=== PATIENT | female | born 1950 ===

== ENCOUNTER 2016-12-25 01:08 | Inpatient (IN) | payer OTHER ==
[2016-12-25 01:08] VITALS: BMI 24.7
[2016-12-25] MEDS ORDERED: Sodium Chloride 0.9% 1,000 ML IV STA (01:27)
[2016-12-25 01:36] LABS: BASO # 0.1 K/uL (0.0-0.2); BASO % 0.7 % (0.0-2.0); EOS # 0.1 K/uL (0.0-0.7); EOS % 0.8 % (0.0-4.0); LYMPH # 2.1 K/uL (1.0-4.3); LYMPH % 20.9 % (20.0-40.0); MEAN CELL VOLUME 89.3 fL (81.0-99.0); MEAN CORPUSCULAR HGB CONC 32.4 g/dL (33.0-37.0); MEAN PLATELET VOLUME 9.8 fL (7.2-11.7); MONO # 0.9 K/uL (0.0-0.8); MONO % 8.5 % (0.0-10.0); RED CELL DISTRIBUTION WIDTH 15.4 % (11.5-14.5); WHITE BLOOD COUNT 10.2 K/uL (4.8-10.8)
[2016-12-25] MEDS ORDERED: Sodium Chloride 0.9% 1,000 ML ONE (01:40)
[2016-12-25 02:06] LABS: RBC URINE < 1 /hpf (0-3); URINE BILIRUBIN NEGATIVE (NEGATIVE); URINE BLOOD NEGATIVE (NEGATIVE); URINE COLOR Colorless (YELLOW); URINE GLUCOSE (UA) NORMAL (Normal); URINE KETONE NEGATIVE (NEGATIVE); URINE LEUKOCYTE ESTERASE NEG Leu/uL (Negative); URINE PROTEIN NEGATIVE (NEGATIVE); URINE UROBILINOGEN NORMAL mg/dL (0.2-1.0); WBC URINE < 1 /hpf (0-5)
[2016-12-25 02:50] LABS: CHLORIDE 106 mmol/L (98-107)
[2016-12-25 02:51] LABS: POTASSIUM 3.4 mmol/L (3.6-5.2); SODIUM 143 mmol/L (132-148)
[2016-12-25 02:54] LABS: ALKALINE PHOSPHATASE 71 U/L (38-126); ALT/SGPT 46 U/L (9-52); AMYLASE 73 U/L (30-110); AST/SGOT 47 U/L (14-36); BILIRUBIN,TOTAL 0.4 mg/dL (0.2-1.3); BLOOD UREA NITROGEN 7 mg/dL (7-17); CALCIUM 8.2 mg/dl (8.6-10.4); CARBON DIOXIDE 25 mmol/L (22-30); GFR AFRICAN-AMERICAN > 60; GLUCOSE,RANDOM 102 mg/dL (65-105); TOTAL PROTEIN 6.4 g/dL (6.3-8.3)
--- NOTE | 2016-12-25 02:55 | C.PDOC ---
History Of Present Illness Patient is a 66 year old female who presents to the ER with a complain of nausea , vomiting, and diarrhea for the past 2-3 days. Patient also complains of SOB that started from yesterday, she denies any chest pain, fever, or chills. Time Seen by Provider: 12/25/16 01:22 Chief Complaint (Nursing): Abdominal Pain History Per: Patient History/Exam Limitations: no limitations Onset/Duration Of Symptoms: Days (2) Current Symptoms Are (Timing): Still Present Location Of Pain/Discomfort: Diffuse Associated Symptoms: Nausea, Vomiting, Diarrhea. denies: Fever, Chills Past Medical History Reviewed: Historical Data, Nursing Documentation, Vital Signs Vital Signs: Last Vital Signs Temp 98.6 F 12/25/16 04:00 Pulse 84 12/25/16 04:00 Resp 18 12/25/16 04:00 BP 159/82 H 12/25/16 04:00 Pulse Ox 100 12/25/16 04:37 - Medical History PMH: Anxiety, Arthritis, Asthma, Bipolar Disorder, Bronchitis, Depression, Diabetes, Gastritis, Gall Bladder Disease (cholecystectomy), GERD, HTN, Hypercholesterolemia, Hypothyroidism, Osteoporosis, Pneumonia, Pulmonary Embolism (has IVC filter), Schizophrenia Surgical History: CABG, Cholecystectomy, Coronary Stent - [facility] Procedures ALCOHOL DETOXIFICATION (03/15/15) INDIVID PSYCHOTHERAP NEC (04/14/13) INTRODUCTION OF SERUM/TOX/VACCINE INTO MUSCLE, PERC APPROACH (01/10/16) OTHER GROUP THERAPY (04/14/13) Family History: States: Unknown Family Hx - Social History Hx Tobacco Use: Yes Hx Alcohol Use: No Hx Substance Use: No - Immunization History Hx Tetanus Toxoid Vaccination: No Hx Influenza Vaccination: No Hx Pneumococcal Vaccination: No Review Of Systems Except As Marked, All Systems Reviewed And Found Negative. Constitutional: Negative for: Fever, Chills Cardiovascular: Negative for: Chest Pain, Palpitations Respiratory: Negative for: Cough, Shortness of Breath Gastrointestinal: Positive for: Nausea, Vomiting, Diarrhea Physical Exam - Physical Exam Appears: Well, Non-toxic Skin: Normal Color, Warm, Dry Head: Atraumatic, Normacephalic Oral Mucosa: Moist Chest: Symmetrical Cardiovascular: Rhythm Regular Respiratory: Normal Breath Sounds, No Rales, No Rhonchi, No Wheezing Gastrointestinal/Abdominal: Soft, Tenderness (Diffusely ), No Distention, No Guarding, No Rebound Extremity: Normal ROM, No Tenderness Neurological/Psych: Oriented x3, Normal Speech, Normal Cognition ED Course And Treatment - Laboratory Results Result Diagrams: 12/25/16 01:33 12/25/16 02:39 O2 Sat by Pulse Oximetry: 100 (Room air) Pulse Ox Interpretation: Normal - Radiology CXR: Interpreted by Wi CXR Interpretation: Yes: Infiltrates (RLL) - CT Scan/US Abdomen/pelvis CT Other Rad Studies (CT/US): Read By Radiologist, Radiology Report Reviewed CT/US Interpretation: EXAM: CT Abdomen and Pelvis Without Intravenous Contrast. CLINICAL HISTORY: 66 years old, female; Pain; Abdominal pain; Generalized; Additional info: Abd pain. TECHNIQUE: Axial computed tomography images of the abdomen and pelvis without intravenous contrast. This. CT exam was performed using one or more of the following dose reduction techniques: automated. exposure control, adjustment of the mA and/or kV according to patient size, and/or use of iterative. reconstruction technique. Coronal and sagittal reformatted images were created and reviewed. COMPARISON: CT - ABD PELVIS W/O PO OR IV CONT 10/16/2015 3:34:22 PM. FINDINGS: Lower thorax: There is consolidation near the right base and right middle lobe. This may represent. atelectasis. However it is difficult to exclude a component of aspiration or pneumonia here. ABDOMEN: Liver: There are no focal liver lesions present. There is a diffuse decrease in hepatic parenchymal. density, consistent with fatty infiltration. Gallbladder and bile ducts: There has been a cholecystectomy. No ductal dilation. Pancreas: The pancreas is normal. No ductal dilation. Spleen: The spleen is normal. Adrenals: The adrenal glands are normal. Kidneys and ureters: The kidneys are normal. No obstructing stones. No hydronephrosis. Stomach and bowel: Stomach is decompressed. Moderate diverticulosis is present in the sigmoid. and descending colon. There is no evidence of diverticulitis. Colonic constipation is present. There. is no evidence of intestinal obstruction. Appendix: No findings to suggest acute appendicitis. PELVIS: Bladder: The bladder is normal. No stones. Reproductive : The uterus is normal. ABDOMEN and PELVIS: Intraperitoneal space: There is no evidence of free intraperitoneal fluid. There is no free. intraperitoneal air. Bones/joints: There are mild degenerative changes present. There is mild diffuse osteopenia. No. acute fracture. No dislocation. Soft tissues: Unremarkable. Vasculature: The aorta demonstrates mild atherosclerotic calcification. There is an infrarenal IVC. filter. No abdominal aortic aneurysm. Lymph nodes: There is no evidence of lymphadenopathy. IMPRESSION: 1. There is consolidation near the right base and right middle lobe. This may represent atelectasis. However it is difficult to exclude a component of aspiration or pneumonia here. 2. No acute pathology identified in the abdomen or pelvis. 3. Additional incidental and/or chronic findings as described. Thank you for allowing us to participate in the care of your patient. Dictated and Authenticated by: Chun Ng MD. 12/25/2016 4:17 AM Eastern Time ( [place] & [place]) Progress Note: Blood work ordered. Protonix IVP, IV fluids, and Zofran IVP administered. CT abdomen and CXR with RLL consolidation that suspicious for possible aspirating pneumonia. Clindamycin IV was ordered. Case was d/w Internal medicine physician intervention teacher who accepted case to her service for admission. Disposition - Disposition Disposition: HOSPITALIZED Disposition Time: 06:33 Condition: FAIR - Clinical Impression Clinical Impression: Aspiration pneumonia, Gastroenteritis - Scribe Statement The provider has reviewed the documentation as recorded by the Scribe Thomas Pool All medical record entries made by the Scribe were at my direction and personally dictated by me. I have reviewed the chart and agree that the record accurately reflects my personal performance of the history, physical exam, medical decision making, and the department course for this patient. I have also personally directed, reviewed, and agree with the discharge instructions and disposition. Decision To Admit - Pt Status Changed To: Hospital Disposition Of: Inpatient - Admit Certification Admit to Inpatient:: After my assessment, the patient will require hospitalization for at least two midnights. This is because of the severity of symptoms shown, intensity of services needed, and/or the medical risk in this patient being treated as an outpatient. - InPatient: Physician Admission Certification:: Aspiration Pneumonia will need more than 2 days of IV antibiotics. - . Bed Request Type: Regular Admitting Physician: Annette Jorge Patient Diagnosis: Aspiration pneumonia, Gastroenteritis
--- NOTE | 2016-12-25 04:17 | CT ---
EXAM: CT Abdomen and Pelvis Without Intravenous Contrast CLINICAL HISTORY: 66 years old, female; Pain; Abdominal pain; Generalized; Additional info: Abd pain TECHNIQUE: Axial computed tomography images of the abdomen and pelvis without intravenous contrast. This CT exam was performed using one or more of the following dose reduction techniques: automated exposure control, adjustment of the mA and/or kV according to patient size, and/or use of iterative reconstruction technique. Coronal and sagittal reformatted images were created and reviewed. COMPARISON: CT - ABD PELVIS W/O PO OR IV CONT 10/16/2015 3:34:22 PM FINDINGS: Lower thorax: There is consolidation near the right base and right middle lobe. This may represent atelectasis. However it is difficult to exclude a component of aspiration or pneumonia here. ABDOMEN: Liver: There are no focal liver lesions present. There is a diffuse decrease in hepatic parenchymal density, consistent with fatty infiltration. Gallbladder and bile ducts: There has been a cholecystectomy. No ductal dilation. Pancreas: The pancreas is normal. No ductal dilation. Spleen: The spleen is normal. Adrenals: The adrenal glands are normal. Kidneys and ureters: The kidneys are normal. No obstructing stones. No hydronephrosis. Stomach and bowel: Stomach is decompressed. Moderate diverticulosis is present in the sigmoid and descending colon. There is no evidence of diverticulitis. Colonic constipation is present. There is no evidence of intestinal obstruction. Appendix: No findings to suggest acute appendicitis. PELVIS: Bladder: The bladder is normal. No stones. Reproductive: The uterus is normal. ABDOMEN and PELVIS: Intraperitoneal space: There is no evidence of free intraperitoneal fluid. There is no free intraperitoneal air. Bones/joints: There are mild degenerative changes present. There is mild diffuse osteopenia. No acute fracture. No dislocation. Soft tissues: Unremarkable. Vasculature: The aorta demonstrates mild atherosclerotic calcification. There is an infrarenal IVC filter. No abdominal aortic aneurysm. Lymph nodes: There is no evidence of lymphadenopathy. IMPRESSION: 1. There is consolidation near the right base and right middle lobe. This may represent atelectasis. However it is difficult to exclude a component of aspiration or pneumonia here. 2. No acute pathology identified in the abdomen or pelvis. 3. Additional incidental and/or chronic findings as described.
[2016-12-25] MEDS: Clindamycin 600mg/50ml D5W 50 ML IVPB STA (06:31)
[2016-12-25] MEDS ORDERED: Clindamycin 600mg/50ml D5W 50 ML IVPB ONE (06:33)
[2016-12-25] MEDS: Dextrose 5%/0.45% NS 1,000 ML IV SCH (08:36)
--- NOTE | 2016-12-25 09:19 | RAD ---
HISTORY: abdominal pain, ? consolidation on CT abdomen COMPARISON: Comparison is made to 09/23/2016 TECHNIQUE: Chest PA and lateral FINDINGS: LUNGS: No evidence of new infiltrate or consolidation in the lungs. PLEURA: No significant pleural effusion identified. No pneumothorax apparent. CARDIOVASCULAR: Normal. OSSEOUS STRUCTURES: No significant abnormalities. VISUALIZED UPPER ABDOMEN: Normal. OTHER FINDINGS: None. IMPRESSION: No active disease.
[2016-12-25] MEDS: Losartan 12.5 MG TAB PO SCH (10:06)
--- NOTE | 2016-12-25 12:41 | CP.PCM.HP ---
History of Present Illness - History of Present Illness History of Present Illness: presented to er for abd pain diarhea sob cough schezophrenia Present on Admission - Present on Admission Any Indicators Present on Admission: No Review of Systems - Review of Systems Systems not reviewed;Unavailable: Acuity of Condition - Constitutional Constitutional: Anorexia, Chills, Fever, Headache - EENT Eyes: As Per HPI Ears: As Per HPI Nose/Mouth/Throat: As Per HPI - Breasts Breasts: As Per HPI - Cardiovascular Cardiovascular: Chest Pain at Rest, Dyspnea, Dyspnea on Exertion - Respiratory Respiratory: Dyspnea on Exertion, Chest Congestion - Gastrointestinal Gastrointestinal: Cramping - Genitourinary Genitourinary: As Per HPI - Reproductive: Female Reproductive:Female: As Per HPI - Menstruation Menstruation: As Per HPI - Integumentary Integumentary: As Per HPI - Neurological Neurological: Dizziness - Psychiatric Psychiatric: Anxiety - Endocrine Endocrine: As Per HPI - Hematologic/Lymphatic Hematologic: As Per HPI Past Patient History - Infectious Disease Hx of Infectious Diseases: None - Past Medical History & Family History Past Medical History?: Yes - Past Social History Smoking Status: Light Smoker < 10 Cigarettes Daily - CARDIAC Hx Hypercholesterolemia: Yes Hx Hypertension: Yes - PULMONARY Hx Asthma: Yes Hx Bronchitis: Yes Hx Pneumonia: Yes Hx Pulmonary Embolism: Yes (has IVC filter) - NEUROLOGICAL Hx Seizures: No - HEENT Hx HEENT Problems: No - RENAL Hx Chronic Kidney Disease: No - ENDOCRINE/METABOLIC Hx Hypothyroidism: Yes - HEMATOLOGICAL/ONCOLOGICAL Hx Human Immunodeficiency Virus (HIV): No (denies) - INTEGUMENTARY Hx Dermatological Problems: No - MUSCULOSKELETAL/RHEUMATOLOGICAL Hx Arthritis: Yes Hx Osteoporosis: Yes - GASTROINTESTINAL Hx Gall Bladder Disease: Yes (cholecystectomy) Hx Gastritis: Yes - GENITOURINARY/GYNECOLOGICAL Hx Sexually Transmitted Disorders: No - PSYCHIATRIC Hx Anxiety: Yes Hx Bipolar Disorder: Yes Hx Depression: Yes Hx Schizophrenia: Yes Hx Substance Use: No - SURGICAL HISTORY Hx Cholecystectomy: Yes Hx Coronary Artery Bypass Graft: Yes Hx Coronary Stent: Yes - ANESTHESIA Hx Anesthesia: Yes Hx Anesthesia Reactions: No Hx Malignant Hyperthermia: No Meds Allergies/Adverse Reactions: Allergies Allergy/AdvReac Type Severity Reaction Status Date / Time ceftriaxone Allergy Intermediate RASH Verified 12/25/16 01:22 moxifloxacin HCl Allergy Intermediate RASH Verified 12/25/16 01:22 [From Avelox] Physical Exam - Constitutional Appears: In Acute Distress - Head Exam Head Exam: NORMAL INSPECTION - Eye Exam Eye Exam: Normal appearance Pupil Exam: NORMAL ACCOMODATION - ENT Exam ENT Exam: Mucous Membranes Dry - Neck Exam Neck exam: Positive for: Full Rom - Respiratory Exam Respiratory Exam: Decreased Breath Sounds, Rales - Cardiovascular Exam Cardiovascular Exam: Diastolic murmur, +S4, Systolic Murmur - GI/Abdominal Exam GI & Abdominal Exam: Distended - Rectal Exam Rectal Exam: NORMAL INSPECTION - Extremities Exam Extremities exam: Positive for: normal inspection Results - Vital Signs Recent Vital Signs: Last Vital Signs Temp 98.5 F 12/25/16 09:35 Pulse 82 12/25/16 09:35 Resp 17 12/25/16 09:35 BP 146/80 12/25/16 09:35 Pulse Ox 98 12/25/16 09:35 - Labs Result Diagrams: 12/25/16 01:33 12/25/16 02:39 Labs: Laboratory Results - last 24 hr 12/25/16 11:28 POC Glucose (mg/dL) 129 H Assessment & Plan - Assessment and Plan (Free Text) Assessment: ac diarhea ac bronchitis posible pnumonia schezophrenia Plan: as per orders - Date & Time Date: 12/25/16 Time: 12:44
[2016-12-25] MEDS: Albuterol-Ipratrop 3 mg / 0.5 (3 ml) UD INH SCH (15:00)
[2016-12-25] MEDS: Potassium Chloride 20 mEq ER Tab PO SCH (17:50)
[2016-12-25 17:55] VITALS: RESP 20
[2016-12-25] MEDS ORDERED: Influenza Virus Vaccine 45 mcg/0.5 ml Syr IM ONE (18:00)
[2016-12-25] MEDS ORDERED: Pneumococcal 23-Valent Vaccine IM ONE (18:00)
[2016-12-26] MEDS: Albuterol-Ipratrop 3 mg / 0.5 (3 ml) UD INH SCH ×4 (01:26→20:20)
[2016-12-26] MEDS: Dextrose 5%/0.45% NS 1,000 ML IV SCH ×2 (06:13→17:55)
[2016-12-26 07:53] LABS: CHLORIDE 102 mmol/L (98-107); POTASSIUM 4.3 mmol/L (3.6-5.2); SODIUM 140 mmol/L (132-148)
[2016-12-26 07:55] LABS: HEMATOCRIT 33.8 % (34.0-47.0); INR 1.1; MEAN CELL VOLUME 90.6 fL (81.0-99.0); MEAN CORPUSCULAR HEMOGLOBIN 29.1 pg (27.0-31.0); MEAN CORPUSCULAR HGB CONC 32.1 g/dL (33.0-37.0); MEAN PLATELET VOLUME 9.4 fL (7.2-11.7)
[2016-12-26 07:56] LABS: BLOOD UREA NITROGEN 9 mg/dL (7-17); CARBON DIOXIDE 26 mmol/L (22-30); GFR AFRICAN-AMERICAN > 60
[2016-12-26 07:57] LABS: CALCIUM 8.4 mg/dl (8.6-10.4); GLUCOSE,RANDOM 108 mg/dL (65-105)
[2016-12-26 08:04] LABS: WHITE BLOOD COUNT 4.8 K/uL (4.8-10.8)
[2016-12-26] MEDS ORDERED: Apap-Butalbital-Caffeine 325-50-40mg Tab PO STA (08:59)
[2016-12-26] MEDS ORDERED: Apap-Butalbital-Caffeine 325-50-40mg Tab PO PRN (08:59)
[2016-12-26] MEDS: Potassium Chloride 20 mEq ER Tab PO SCH (09:40)
[2016-12-26] MEDS: Losartan 12.5 MG TAB PO SCH (09:40)
[2016-12-26] MEDS: Enoxaparin 40 mg Syringe SC SCH (09:41)
[2016-12-26] MEDS ORDERED: Magnesium Hydroxide Susp 30 ml UD PO ONE ×2 (16:30→18:00)
--- NOTE | 2016-12-26 17:29 | CP.PCM.PN ---
Subjective - Date & Time of Evaluation Date of Evaluation: 12/26/16 Time of Evaluation: 17:26 - Subjective Subjective: pt still coughing a lot chest is cogested no abd pain Objective - Vital Signs/Intake and Output Vital Signs (last 24 hours): Temp Pulse Resp BP Pulse Ox 98.7 F 83 20 114/71 97 12/26/16 08:00 12/26/16 13:51 12/26/16 08:00 12/26/16 08:00 12/26/16 08:00 Intake and Output: 12/26/16 12/26/16 06:59 18:59 Intake Total 1322 Balance 1322 - Medications Medications: Current Medications Acetaminophen (Tylenol 325mg Tab) 650 mg PO Q6 PRN PRN Reason: Pain, Mild (1-3) Last Admin: 12/26/16 06:16 Dose: 650 mg Albuterol/Ipratropium (Duoneb 3 Mg/0.5 Mg (3 Ml) Ud) 3 ml INH RQ6 [facility] Last Admin: 12/26/16 14:37 Dose: Not Given Alprazolam (Xanax) 1 mg PO BID [facility] Last Admin: 12/26/16 09:41 Dose: 1 mg Aspirin (Ecotrin) 81 mg PO DAILY [facility] Last Admin: 12/26/16 09:40 Dose: 81 mg Enoxaparin Sodium (Lovenox) 40 mg SC DAILY [facility] Last Admin: 12/26/16 09:41 Dose: 40 mg Gabapentin (Neurontin) 300 mg PO HS [facility] Last Admin: 12/25/16 22:15 Dose: 300 mg Dextrose/Sodium Chloride (Dextrose 5%/0.45% Ns 1000 Ml) 1,000 mls @ 60 mls/hr IV .[id number] [facility] Last Admin: 12/26/16 06:13 Dose: Not Given Clindamycin Phosphate 600 mg/ (Dextrose) 54 mls @ 100 mls/hr IVPB Q8H [facility] Losartan Potassium (Cozaar) 25 mg PO DAILY [facility] Montelukast Sodium (Singulair) 10 mg PO HS [facility] Last Admin: 12/25/16 22:29 Dose: 10 mg Ondansetron HCl (Zofran Inj) 4 mg IVP Q6H PRN PRN Reason: Nausea/Vomiting Last Admin: 12/25/16 10:10 Dose: 4 mg Pantoprazole Sodium (Protonix Inj) 40 mg IVP DAILY [facility] Last Admin: 12/26/16 15:00 Dose: 40 mg Sertraline HCl (Zoloft) 100 mg PO DAILY [facility] Last Admin: 12/26/16 09:40 Dose: 100 mg Trazodone HCl (Desyrel) 100 mg PO DAILY [facility] Last Admin: 12/26/16 09:40 Dose: 100 mg - Labs Labs: 12/26/16 07:31 12/26/16 07:31 PT 12.1 SECONDS (9.7-12.2) 12/26/16 07:31 INR 1.1 12/26/16 07:31 APTT 18 SECONDS (21-34) L 12/26/16 07:31 - Constitutional Appears: Non-toxic - Head Exam Head Exam: NORMAL INSPECTION - Eye Exam Eye Exam: Normal appearance - ENT Exam ENT Exam: Normal Exam - Neck Exam Neck Exam: Full ROM - Respiratory Exam Respiratory Exam: Rales - Cardiovascular Exam Cardiovascular Exam: REGULAR RHYTHM - GI/Abdominal Exam GI & Abdominal Exam: Hyperactive Bowel Sounds - Rectal Exam Rectal Exam: NORMAL INSPECTION - Extremities Exam Extremities Exam: Normal Inspection - Back Exam Back Exam: NORMAL INSPECTION - Neurological Exam Neurological Exam: Oriented x3 - Psychiatric Exam Psychiatric exam: Normal Affect - Skin Skin Exam: Normal Color Assessment and Plan - Assessment and Plan (Free Text) Assessment: ac bronchitis r/o pnumonia abd pain improved Plan: qas per orders
[2016-12-26] MEDS: Albuterol 0.083% Inhal Sol (2.5 mg/3 mL) UD INH SCH (20:21)
[2016-12-26] MEDS: Clindamycin 600mg/50ml D5W 50 ML IVPB STA (21:24)
[2016-12-27] MEDS: Albuterol 0.083% Inhal Sol (2.5 mg/3 mL) UD INH SCH ×2 (02:15→08:54)
[2016-12-27] MEDS: Albuterol-Ipratrop 3 mg / 0.5 (3 ml) UD INH SCH ×3 (02:15→14:31)
[2016-12-27 08:24] LABS: HEMATOCRIT 35.1 % (34.0-47.0); MEAN CELL VOLUME 91.5 fL (81.0-99.0); MEAN CORPUSCULAR HEMOGLOBIN 29.3 pg (27.0-31.0); RED CELL DISTRIBUTION WIDTH 15.8 % (11.5-14.5); WHITE BLOOD COUNT 4.9 K/uL (4.8-10.8)
[2016-12-27 08:34] VITALS: PULSE 70
[2016-12-27 08:37] LABS: CHLORIDE 100 mmol/L (98-107); POTASSIUM 4.1 mmol/L (3.6-5.2); SODIUM 139 mmol/L (132-148)
[2016-12-27 08:40] LABS: BLOOD UREA NITROGEN 16 mg/dL (7-17); CALCIUM 8.5 mg/dl (8.6-10.4); CARBON DIOXIDE 25 mmol/L (22-30); GFR AFRICAN-AMERICAN > 60; GLUCOSE,RANDOM 166 mg/dL (65-105)
[2016-12-27] MEDS: Enoxaparin 40 mg Syringe SC SCH (10:26)
--- NOTE | 2016-12-27 10:32 | CP.PCM.PN ---
Subjective - Date & Time of Evaluation Date of Evaluation: 12/27/16 Time of Evaluation: 10:30 - Subjective Subjective: pt feels beter less cough Objective - Vital Signs/Intake and Output Vital Signs (last 24 hours): Temp Pulse Resp BP Pulse Ox 98.1 F 70 20 113/76 97 12/27/16 08:00 12/27/16 08:00 12/27/16 08:00 12/27/16 08:00 12/27/16 08:00 Intake and Output: 12/27/16 12/27/16 06:59 18:59 Intake Total 680 Balance 680 - Medications Medications: Current Medications Acetaminophen (Tylenol 325mg Tab) 650 mg PO Q6 PRN PRN Reason: Pain, Mild (1-3) Last Admin: 12/26/16 06:16 Dose: 650 mg Albuterol Sulfate (Albuterol 0.083% Inhal Karla (2.5 Mg/3 Ml) Ud) 2.5 mg INH RQ6 [facility] Last Admin: 12/27/16 08:54 Dose: Not Given Albuterol/Ipratropium (Duoneb 3 Mg/0.5 Mg (3 Ml) Ud) 3 ml INH RQ6 [facility] Last Admin: 12/27/16 08:53 Dose: 3 ml Alprazolam (Xanax) 1 mg PO BID [facility] Last Admin: 12/27/16 10:27 Dose: 1 mg Aspirin (Ecotrin) 81 mg PO DAILY [facility] Last Admin: 12/27/16 10:27 Dose: 81 mg Enoxaparin Sodium (Lovenox) 40 mg SC DAILY [facility] Last Admin: 12/27/16 10:26 Dose: 40 mg Gabapentin (Neurontin) 300 mg PO HS [facility] Last Admin: 12/26/16 21:24 Dose: 300 mg Dextrose/Sodium Chloride (Dextrose 5%/0.45% Ns 1000 Ml) 1,000 mls @ 60 mls/hr IV .[id number] [facility] Last Admin: 12/26/16 17:55 Dose: 60 mls/hr Clindamycin Phosphate 600 mg/ (Dextrose) 54 mls @ 100 mls/hr IVPB Q8H [facility] Last Admin: 12/27/16 06:04 Dose: 100 mls/hr Losartan Potassium (Cozaar) 25 mg PO DAILY [facility] Last Admin: 04/04/17 10:27 Dose: 25 mg Montelukast Sodium (Singulair) 10 mg PO HS [facility] Last Admin: 12/26/16 21:24 Dose: 10 mg Ondansetron HCl (Zofran Inj) 4 mg IVP Q6H PRN PRN Reason: Nausea/Vomiting Last Admin: 12/25/16 10:10 Dose: 4 mg Pantoprazole Sodium (Protonix Inj) 40 mg IVP DAILY [facility] Last Admin: 12/27/16 10:27 Dose: 40 mg Sertraline HCl (Zoloft) 100 mg PO DAILY [facility] Last Admin: 12/27/16 10:28 Dose: 100 mg Trazodone HCl (Desyrel) 100 mg PO DAILY [facility] Last Admin: 12/27/16 10:27 Dose: 100 mg - Labs Labs: 12/27/16 08:18 12/27/16 08:18 PT 12.1 SECONDS (9.7-12.2) 12/26/16 07:31 INR 1.1 12/26/16 07:31 APTT 18 SECONDS (21-34) L 12/26/16 07:31 - Constitutional Appears: Non-toxic - Head Exam Head Exam: NORMAL INSPECTION - Eye Exam Eye Exam: Normal appearance Pupil Exam: NORMAL ACCOMODATION - ENT Exam ENT Exam: Mucous Membranes Moist - Respiratory Exam Respiratory Exam: NORMAL BREATHING PATTERN - Cardiovascular Exam Cardiovascular Exam: REGULAR RHYTHM - GI/Abdominal Exam GI & Abdominal Exam: Normal Bowel Sounds - Rectal Exam Rectal Exam: NORMAL INSPECTION - Exam Exam: NORMAL INSPECTION - Skin Skin Exam: Normal Color Assessment and Plan - Assessment and Plan (Free Text) Assessment: ac bronchitis abd pain imrovedanexiety Plan: disc
[2016-12-27] MEDS: Dextrose 5%/0.45% NS 1,000 ML IV SCH (10:35)
--- NOTE | 2016-12-27 11:06 | CT ---
PROCEDURE: CT Chest without contrast HISTORY: chest congesion possible pnumonia COMPARISON: Comparison is made to the previous study dated 02/01/2016 TECHNIQUE: Contiguous axial images were obtained through the chest without intravenous contrast enhancement. Sagittal and coronal reconstructions were performed. Radiation dose (DLP): 440.7 mGy-cm. This CT exam was performed using one or more of the following dose reduction techniques: Automated exposure control, adjustment of the mA and/or kV according to patient size, and/or use of iterative reconstruction technique. FINDINGS: LUNGS: Focal opacity at the right middle lobe associated with slight bronchiectasis suspicious for possible pneumonia. The possibility of neoplasm is not totally excluded. Interval significant improvement and almost complete resolving of the previously seen ground-glass opacities in the lungs. MEDIASTINUM: Unremarkable thoracic aorta. No aneurysm. Normal sized heart. Main pulmonary artery unremarkable. No vascular congestion. No lymphadenopathy. PLEURA: No pleural fluid. No pneumothorax. BONES: No fracture. No destructive lesion. UPPER ABDOMEN: Grossly unremarkable. OTHER FINDINGS: None. IMPRESSION: Focal airspace opacity/consolidation at the right middle lobe may represent a pneumonia or neoplasm. Follow-up reassessment is recommended. Interval almost complete resolving of the previously seen diffuse ground-glass opacities in the lungs. Otherwise no evidence of acute pathology or significant interval change compared to the previous study.
[2016-12-27 16:46] VITALS: BP 134/81; TEMP 98; O2SAT 96
== END 2016-12-27 16:00 | disposition home or self-care (01) | DRG 391 ==
LOC: C.ER 01:08 → C.9E 06:27 → C.3T 14:48
PROVIDERS: ADMIT Internal Medicine; ATTEND Internal Medicine
DX: K52.9 Noninfective gastroenteritis and colitis, unspecified (principal); J18.9 Pneumonia, unspecified organism; F20.9 Schizophrenia, unspecified; F17.210 Nicotine dependence, cigarettes, uncomplicated; Z86.718 Personal history of other venous thrombosis and embolism; F41.9 Anxiety disorder, unspecified; I25.10 Atherosclerotic heart disease of native coronary artery without angina pectoris; Z95.1 Presence of aortocoronary bypass graft

== ENCOUNTER 2017-01-03 11:47 | Emergency (ER) | payer MEDICAID, OTHER ==
[2017-01-03 11:47] VITALS: BMI 24.7
[2017-01-03 11:58] VITALS: RESP 18; O2SAT 96
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
[2017-01-03] MEDS ORDERED: Albuterol-Ipratrop 3 mg / 0.5 (3 ml) UD IH STA (12:53)
[2017-01-03] MEDS ORDERED: Albuterol-Ipratrop 3 mg / 0.5 (3 ml) UD ONE (12:59)
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
[2017-01-03 14:34] VITALS: BP 144/80; PULSE 88; TEMP 98
--- NOTE | 2017-01-12 08:39 | CARD ---
APPROVED REPORT EKG Measurement Heart [id number] <Conclusion> Normal sinus rhythm Left ventricular hypertrophy with repolarization abnormality Abnormal ECG
== END 2017-01-03 14:34 | disposition home or self-care (01) ==
LOC: C.ER 11:47
DX: S20.212A Contusion of left front wall of thorax, initial encounter (principal); S20.211A Contusion of right front wall of thorax, initial encounter; V43.62XA Car passenger injured in collision with other type car in traffic accident, initial encounter; Y92.410 Unspecified street and highway as the place of occurrence of the external cause

== ENCOUNTER 2017-05-15 14:37 | Emergency (ER) | payer MEDICAID, OTHER ==
[2017-05-15 14:37] VITALS: BMI 29.2
[2017-05-15 14:58] VITALS: PULSE 80; RESP 16
[2017-05-15] MEDS ORDERED: Sodium Chloride 0.9% 1,000 ML IV ONE (16:35)
[2017-05-15] MEDS ORDERED: Iohexol 240 (50 ml) PO STA (16:35)
[2017-05-15] MEDS ORDERED: Sodium Chloride 0.9% 1,000 ML ONE (16:49)
[2017-05-15] MEDS ORDERED: Iohexol 240 (50 ml) ONE (16:49)
[2017-05-15 16:56] LABS: BASO # 0.1 K/uL (0.0-0.2); BASO % 1.1 % (0.0-2.0); EOS # 0.1 K/uL (0.0-0.7); EOS % 0.7 % (0.0-4.0); HEMATOCRIT 32.4 % (34.0-47.0); LYMPH # 3.4 K/uL (1.0-4.3); LYMPH % 37.7 % (20.0-40.0); MEAN CELL VOLUME 93.3 fL (81.0-99.0); MEAN CORPUSCULAR HEMOGLOBIN 30.5 pg (27.0-31.0); MEAN CORPUSCULAR HGB CONC 32.7 g/dL (33.0-37.0); MEAN PLATELET VOLUME 9.2 fL (7.2-11.7); MONO # 0.6 K/uL (0.0-0.8); NRBC % 0.1 % (0.0-2.0); RED CELL DISTRIBUTION WIDTH 19.2 % (11.5-14.5)
[2017-05-15 16:58] LABS: WHITE BLOOD COUNT 9.1 K/uL (4.8-10.8)
[2017-05-15 17:05] LABS: CHLORIDE 107 mmol/L (98-107); SODIUM 140 mmol/L (132-148)
[2017-05-15 17:06] LABS: POTASSIUM 4.4 mmol/L (3.6-5.2)
[2017-05-15 17:08] LABS: ALKALINE PHOSPHATASE 115 U/L (38-126); ALT/SGPT 57 U/L (9-52); AST/SGOT 91 U/L (14-36); BILIRUBIN,TOTAL 1.8 mg/dL (0.2-1.3); BLOOD UREA NITROGEN 12 mg/dL (7-17); CARBON DIOXIDE 22 mmol/L (22-30); GFR AFRICAN-AMERICAN > 60; GLUCOSE,RANDOM 79 mg/dL (65-105); TOTAL PROTEIN 7.6 g/dL (6.3-8.3)
[2017-05-15 17:09] LABS: ALCOHOL SERUM < 10 mg/dl (0-10); CALCIUM 8.9 mg/dl (8.6-10.4)
[2017-05-15] MEDS ORDERED: Iohexol 300 100 ML IJ ONE (17:36)
[2017-05-15 18:01] VITALS: BP 121/78; TEMP 97.7; O2SAT 96
--- NOTE | 2017-05-15 18:06 | C.PDOC ---
History Of Present Illness 66 yr old female presents to the ER with complaints of lower abdominal pain, 2 episodes of vomiting, 2 episodes of diarrhea and mild nausea since yesterday. Patient has history of alcohol abuse with admission. Denies recent travel, fever , chest pain, SOB, dysuria, hematuria, blood in stool, urine or vomiting. Time Seen by Provider: 05/15/17 15:52 Chief Complaint (Nursing): Abdominal Pain History Per: Patient History/Exam Limitations: no limitations Onset/Duration Of Symptoms: Days (1) Past Medical History Reviewed: Historical Data, Nursing Documentation, Vital Signs Vital Signs: Last Vital Signs Temp 97.7 F 05/15/17 18:01 Pulse 80 05/15/17 18:01 Resp 16 05/15/17 18:01 BP 121/78 05/15/17 18:01 Pulse Ox 96 05/15/17 18:09 - Medical History PMH: Anxiety, Arthritis, Asthma, Bipolar Disorder, Bronchitis, CAD, Depression, Diabetes, Gastritis, Gall Bladder Disease, GERD, HTN, Hypercholesterolemia, Hypothyroidism, Osteoporosis, Pneumonia, Pulmonary Embolism (has IVC filter) Comment Only: HIV (denies) Surgical History: CABG, Cholecystectomy, Coronary Stent - [facility] Procedures ALCOHOL DETOXIFICATION (03/15/15) INDIVID PSYCHOTHERAP NEC (04/14/13) INTRODUCTION OF ANTI-INFLAM INTO RESP TRACT, VIA OPENING (01/25/17) INTRODUCTION OF SERUM/TOX/VACCINE INTO MUSCLE, PERC APPROACH (03/12/17) OTHER GROUP THERAPY (04/14/13) Family History: States: No Known Family Hx - Social History Hx Tobacco Use: Yes Hx Alcohol Use: Yes Hx Substance Use: Yes - Immunization History Hx Tetanus Toxoid Vaccination: No Hx Influenza Vaccination: No Hx Pneumococcal Vaccination: No Review Of Systems Except As Marked, All Systems Reviewed And Found Negative. Constitutional: Negative for: Fever Cardiovascular: Negative for: Chest Pain Respiratory: Negative for: Shortness of Breath Gastrointestinal: Positive for: Nausea (Mild), Vomiting (2x non bloody), Abdominal Pain (Lower abdominal ), Diarrhea (2 non bloody) Genitourinary: Negative for: Dysuria, Hematuria Physical Exam - Physical Exam Appears: Non-toxic, No Acute Distress Skin: Warm, Dry, No Rash Head: Atraumatic, Normacephalic Oral Mucosa: Moist Chest: Symmetrical, No Tenderness Cardiovascular: Rhythm Regular, No Murmur Respiratory: Normal Breath Sounds, No Rales, No Rhonchi, No Wheezing Gastrointestinal/Abdominal: Bowel Sounds, Soft, Tenderness (Bilateral lower abdominal tenderness.), No Guarding, No Rebound Back: Normal Inspection, No CVA Tenderness Extremity: Normal ROM, No Swelling Neurological/Psych: Oriented x3, Normal Speech, Normal Motor ED Course And Treatment - Laboratory Results Result Diagrams: 05/15/17 16:46 05/15/17 16:46 O2 Sat by Pulse Oximetry: 96 (RA) Pulse Ox Interpretation: Normal Medical Decision Making Medical Decision Making: PLAN: * CT - Abd & Pelvis * Alcohol Serum * CBC * CMP * Urinalysis * Pepcid IVP * Zofran IVP * Sodium Chloride IV 7pm - Patient feeling better. Labs and CT reviewed. Patient to be discharged with follow up instructions. Disposition - Disposition Disposition: HOME/ ROUTINE Disposition Time: 19:00 Condition: IMPROVED Additional Instructions: Thank you for letting us take care of you today. Your provider was Dr. Acosta. The emergency medical care you received today was directed at your acute symptoms. If you were prescribed any medication, please fill it and take as directed. It may take several days for your symptoms to resolve. Return to the Emergency Department if your symptoms worsen, do not improve, or if you have any other problems. Please contact your doctor or call one of the physicians/clinics you have been referred to that are listed on the Patient Visit Information form that is included in your discharge packet. Bring any paperwork you were given at discharge with you along with any medications you are taking to your follow up visit. Our treatment cannot replace ongoing medical care by a primary care provider (PCP) outside of the emergency department. Thank you for allowing the [facility] team to be part of your care today. Follow up with your doctor in 2-3 days for re-evaluation. Prescriptions: Ranitidine HCl [Zantac] 150 mg PO BID #20 tablet Instructions: Gastroenteritis (ED) Forms: [employer] (Indonesian) - Clinical Impression Clinical Impression: Gastroenteritis - Scribe Statement The provider has reviewed the documentation as recorded by the Alexanderibmegan Majano Provider Attestation: All medical record entries made by the Scribmegan were at my direction and personally dictated by me. I have reviewed the chart and agree that the record accurately reflects my personal performance of the history, physical exam, medical decision making, and the department course for this patient. I have also personally directed, reviewed, and agree with the discharge instructions and disposition.
[2017-05-15 18:08] LABS: RBC URINE 2 /hpf (0-3); URINE BACTERIA RARE (<OCC); URINE BILIRUBIN NEGATIVE (NEGATIVE); URINE BLOOD 2+ (NEGATIVE); URINE COLOR Yellow (YELLOW); URINE GLUCOSE (UA) NORMAL (Normal); URINE KETONE NEGATIVE (NEGATIVE); URINE LEUKOCYTE ESTERASE NEG Leu/uL (Negative); URINE PROTEIN NEGATIVE (NEGATIVE); WBC URINE 1 /hpf (0-5)
--- NOTE | 2017-05-15 18:39 | CT ---
PROCEDURE: CT Abdomen and Pelvis with contrast HISTORY: lower abdominal pain COMPARISON: Comparison is made to the previous study 12/25/2016 TECHNIQUE: Contrast dose: 100 cc of Omnipaque 300. Axial and reformatted coronal and sagittal CT images of the abdomen and pelvis were obtained after IV and oral contrast administration. Radiation dose: Total exam DLP = 909.27mGy-cm. This CT exam was performed using one or more of the following dose reduction techniques: Automated exposure control, adjustment of the mA and/or kV according to patient size, and/or use of iterative reconstruction technique. FINDINGS: LOWER THORAX: Unremarkable. LIVER: Unremarkable. No gross lesion or ductal dilatation. GALLBLADDER AND BILE DUCTS: Patient status post cholecystectomy. PANCREAS: Unremarkable. No gross lesion or ductal dilatation. SPLEEN: Unremarkable. ADRENALS: Unremarkable. No mass. KIDNEYS AND URETERS: Unremarkable. No hydronephrosis. No solid mass. VASCULATURE: IVC filter seen in place. . No aortic aneurysm. BOWEL: Mildly dilated small bowel loops demonstrate mild wall thickening seen at the mid and lower abdomen suspicious for enteritis. No evidence of high-grade bowel obstruction. Scattered colonic diverticulosis seen without evidence of diverticulitis. APPENDIX: No evidence of appendicitis. PERITONEUM: Unremarkable. No free fluid. No free air. LYMPH NODES: Unremarkable. No enlarged lymph nodes. BLADDER: Mild urinary bladder wall thickening. REPRODUCTIVE: Unremarkable. BONES: No acute fracture. OTHER FINDINGS: None. IMPRESSION: Mildly dilated small bowel loops demonstrate mild wall thickening at the mid and lower abdomen. Findings suspicious for enteritis. No evidence of bowel obstruction. Colonic diverticulosis without CT evidence of diverticulitis.
== END 2017-05-15 19:46 | disposition home or self-care (01) ==
LOC: C.ER 14:37
DX: K52.9 Noninfective gastroenteritis and colitis, unspecified (principal)
CPT/HCPCS: 74177; 80053; 80320; 81001; 83690; 85025; 87086; 96374; 96375; 99285; J2405; J7040; Q9966; Q9967

== ENCOUNTER 2017-09-09 12:08 | Emergency (ER) | payer MEDICARE, OTHER ==
[2017-09-09 12:10] VITALS: BMI 29.2
[2017-09-09 12:24] VITALS: RESP 20; O2SAT 99
--- NOTE | 2017-09-09 14:25 | C.PDOC ---
History Of Present Illness 67-year-old female, PMHx includes Anxiety, Arthritis, Asthma, Bipolar Disorder, Bronchitis, CAD, Depression, Diabetes, Gastritis, Gall Bladder Disease, GERD, Hypertension, Hypercholesterolemia, Hypothyroidism, Osteoporosis, Pneumonia, and Pulmonary Embolism, presents to the emergency department with complaints of anxiety. Patient states she had three beers today because she felt anxious. Patient didn't fill her Xanax because she doesn't have money. Secondary complaint is nausea and burning to the epigastric area. Denies vomiting, diarrhea, fevers, chills, SI/HI, chest pain, or shortness of breath. No other complaints at this time. Time Seen by Provider: 09/09/17 12:17 Chief Complaint (Nursing): Abdominal Pain History Per: Patient History/Exam Limitations: no limitations Onset/Duration Of Symptoms: Days Current Symptoms Are (Timing): Still Present Severity: Moderate Past Medical History Reviewed: Historical Data, Nursing Documentation, Vital Signs Vital Signs: Last Vital Signs Temp 98 F 09/09/17 14:32 Pulse 80 09/09/17 14:32 Resp 20 09/09/17 14:32 BP 130/70 09/09/17 14:32 Pulse Ox 99 09/09/17 14:42 - Medical History PMH: Anxiety, Arthritis, Asthma, Bipolar Disorder, Bronchitis, CAD, Depression, Diabetes, Gastritis, Gall Bladder Disease, GERD, HTN, Hypercholesterolemia, Hypothyroidism, Osteoporosis, Pneumonia, Pulmonary Embolism Comment Only: HIV (denies) Surgical History: CABG, Cholecystectomy, Coronary Stent - [facility] Procedures ALCOHOL DETOXIFICATION (03/15/15) INDIVID PSYCHOTHERAP NEC (04/14/13) INTRODUCTION OF ANTI-INFLAM INTO RESP TRACT, VIA OPENING (01/25/17) INTRODUCTION OF SERUM/TOX/VACCINE INTO MUSCLE, PERC APPROACH (09/02/17) OTHER GROUP THERAPY (04/14/13) Family History: States: Unknown Family Hx - Social History Hx Tobacco Use: Yes Hx Alcohol Use: Yes Hx Substance Use: No - Immunization History Hx Tetanus Toxoid Vaccination: No Hx Influenza Vaccination: No Hx Pneumococcal Vaccination: No Review Of Systems Except As Marked, All Systems Reviewed And Found Negative. Constitutional: Negative for: Fever, Chills Respiratory: Negative for: Cough, Shortness of Breath Gastrointestinal: Positive for: Nausea, Abdominal Pain. Negative for: Vomiting , Diarrhea Psych: Positive for: Anxiety. Negative for: Suicidal ideation Physical Exam - Physical Exam Appears: Non-toxic, No Acute Distress, Other (Mildly intoxication) Skin: Warm, Dry, No Rash Head: Atraumatic, Normacephalic Eye(s): bilateral: Normal Inspection, PERRL Nose: Normal Oral Mucosa: Moist Lips: Normal Appearing Neck: Normal ROM Chest: Symmetrical Cardiovascular: Rhythm Regular, No Murmur Respiratory: Normal Breath Sounds, No Accessory Muscle Use Extremity: Normal ROM Neurological/Psych: Oriented x3, Normal Speech ED Course And Treatment O2 Sat by Pulse Oximetry: 99 Progress Note: Patient treated with Xanax and Zofran. Disposition Counseled Patient/Family Regarding: Studies Performed, Diagnosis, Need For Followup - Disposition Referrals: Rocio Hartley MD [Medical Doctor] - Disposition: HOME/ ROUTINE Disposition Time: 14:25 Condition: STABLE Additional Instructions: FOLLOW UP WITH YOUR DOCTOR IN 1-2 DAYS FILL YOUR PRESCRIPTION FOR XANAX TOMORROW RETURN TO EMERGENCY ROOM IF YOU HAVE ANY CONCERNING SYMPTOMS SEGUIMIENTO CON MALDONADO MDICO EN 1-2 JACKSON LLENE MALDONADO PRESCRIPCIN PARA XANAX MAANA REGRESE AL DARSHANA DE EMERGENCIA SI TIENE ALGN SNTOMA CONCRETO Instructions: Alcohol Intoxication (ED), Anxiety (ED) Forms: [employer] (Sinhala) Print Language: GREEK - Clinical Impression Clinical Impression: Anxiety, Alcohol intoxication - Scribe Statement The provider has reviewed the documentation as recorded by the Scribe (Roberto Johns) All medical record entries made by the Scribe were at my direction and personally dictated by me. I have reviewed the chart and agree that the record accurately reflects my personal performance of the history, physical exam, medical decision making, and the department course for this patient. I have also personally directed, reviewed, and agree with the discharge instructions and disposition.
[2017-09-09 14:33] VITALS: BP 130/70; PULSE 80; TEMP 98
== END 2017-09-09 14:33 | disposition home or self-care (01) ==
LOC: C.ER 12:08
DX: F10.129 Alcohol abuse with intoxication, unspecified (principal); F41.9 Anxiety disorder, unspecified; E78.00 Pure hypercholesterolemia, unspecified; I10 Essential (primary) hypertension; I25.10 Atherosclerotic heart disease of native coronary artery without angina pectoris; M81.0 Age-related osteoporosis without current pathological fracture; E03.9 Hypothyroidism, unspecified; E11.9 Type 2 diabetes mellitus without complications; Z87.891 Personal history of nicotine dependence

== ENCOUNTER 2017-10-13 12:31 | Emergency (ER) | payer MEDICARE, OTHER ==
[2017-10-13 12:31] VITALS: BMI 29.2
[2017-10-13 12:34] VITALS: RESP 18
[2017-10-13 12:55] VITALS: TEMP 98.1
[2017-10-13] MEDS ORDERED: Sodium Chloride 0.9% 1,000 ML IV ONE (13:48)
[2017-10-13 14:00] LABS: BASO # 0.1 K/uL (0.0-0.2); BASO % 1.4 % (0.0-2.0); EOS % 0.5 % (0.0-4.0); HEMOGLOBIN 11.3 g/dL (11.0-16.0); LYMPH # 1.3 K/uL (1.0-4.3); LYMPH % 18.7 % (20.0-40.0); MEAN CORPUSCULAR HEMOGLOBIN 33.5 pg (27.0-31.0); MEAN CORPUSCULAR HGB CONC 33.7 g/dL (33.0-37.0); MONO # 0.6 K/uL (0.0-0.8); MONO % 8.3 % (0.0-10.0); NEUT # 4.9 K/uL (1.8-7.0); NEUT % 71.1 % (50.0-75.0); NRBC % 0.1 % (0.0-2.0); RBC 3.37 Mil/uL (3.80-5.20); RED CELL DISTRIBUTION WIDTH 18.7 % (11.5-14.5); WHITE BLOOD COUNT 6.9 K/uL (4.8-10.8)
[2017-10-13 14:03] LABS: MEAN CELL VOLUME 99.2 fL (81.0-99.0)
[2017-10-13 14:17] LABS: CALCIUM 8.4 mg/dl (8.6-10.4); GFR AFRICAN-AMERICAN > 60; GFR NON-AFRICAN AMERICAN > 60; LIPASE 201 U/L (23-300)
[2017-10-13 14:35] LABS: ALB/GLOB RATIO 0.8 (1.0-2.1); ALBUMIN 3.8 g/dL (3.5-5.0); ALT/SGPT 45 U/L (9-52); AST/SGOT 134 U/L (14-36); BLOOD UREA NITROGEN 6 mg/dL (7-17)
[2017-10-13 15:08] LABS: SQUAMOUS EPITHIAL 2 /hpf (0-5); URINE BILIRUBIN NEGATIVE (NEGATIVE); URINE BLOOD NEGATIVE (NEGATIVE); URINE CLARITY Clear (Clear); URINE COLOR Yellow (YELLOW); URINE GLUCOSE (UA) NORMAL (Normal); URINE LEUKOCYTE ESTERASE NEG Leu/uL (Negative); URINE NITRATE NEGATIVE (NEGATIVE); URINE PROTEIN NEGATIVE (NEGATIVE)
--- NOTE | 2017-10-13 17:08 | C.PDOC ---
Time Seen by Provider: 10/13/17 13:08 Chief Complaint (Nursing): Abdominal Pain History Per: Patient Onset/Duration Of Symptoms: Days (1) Current Symptoms Are (Timing): Still Present Severity: Moderate Location Of Pain/Discomfort: Diffuse Quality Of Discomfort: Unable To Describe, "Pain" Associated Symptoms: Nausea, Vomiting, Diarrhea Exacerbating Factors: Food Alleviating Factors: None Additional History Per: Prior Records Past Medical History Reviewed: Historical Data, Nursing Documentation, Vital Signs Vital Signs: Last Vital Signs Temp 98.1 F 10/13/17 12:50 Pulse 88 10/13/17 14:55 Resp 18 10/13/17 14:55 BP 127/88 10/13/17 14:55 Pulse Ox 98 10/13/17 14:55 - Medical History PMH: Anxiety, Arthritis, Asthma, Bipolar Disorder, Bronchitis, CAD, Depression, Diabetes, Gastritis, Gall Bladder Disease, GERD, HTN, Hypercholesterolemia, Hypothyroidism, Osteoporosis, Pneumonia, Pulmonary Embolism Surgical History: CABG, Cholecystectomy, Coronary Stent - [facility] Procedures ALCOHOL DETOXIFICATION (03/15/15) INDIVID PSYCHOTHERAP NEC (04/14/13) INTRODUCTION OF ANTI-INFLAM INTO RESP TRACT, VIA OPENING (01/25/17) INTRODUCTION OF SERUM/TOX/VACCINE INTO MUSCLE, PERC APPROACH (09/02/17) OTHER GROUP THERAPY (04/14/13) Family History: States: Unknown Family Hx - Social History Hx Tobacco Use: Yes Hx Alcohol Use: Yes Hx Substance Use: No - Immunization History Hx Tetanus Toxoid Vaccination: No Hx Influenza Vaccination: No Hx Pneumococcal Vaccination: No Review Of Systems Except As Marked, All Systems Reviewed And Found Negative. Constitutional: Negative for: Fever Cardiovascular: Negative for: Chest Pain Respiratory: Negative for: Shortness of Breath Gastrointestinal: Positive for: Nausea, Vomiting, Abdominal Pain, Diarrhea. Negative for: Melena, Hematochezia, Hematemesis Musculoskeletal: Negative for: Neck Pain Neurological: Negative for: Weakness, Numbness Physical Exam - Physical Exam Appears: Non-toxic, No Acute Distress Skin: Normal Color, Warm, Dry, No Rash Head: Atraumatic, Normacephalic Eye(s): bilateral: Normal Inspection, PERRL, EOMI Neck: Normal ROM, Supple Cardiovascular: Rhythm Regular Respiratory: Normal Breath Sounds, No Accessory Muscle Use Gastrointestinal/Abdominal: Soft, Tenderness (nonspecific) Back: No CVA Tenderness Extremity: Normal ROM Neurological/Psych: Oriented x3, Normal Motor, Normal Sensation ED Course And Treatment - Laboratory Results Result Diagrams: 10/13/17 13:57 10/13/17 13:57 Lab Interpretation: No Acute Changes O2 Sat by Pulse Oximetry: 98 Pulse Ox Interpretation: Normal Progress Note: Pt feels much better and wants to go home. No abdominal pain. Tolerating PO. Reassessment Condition: Improved Progress - Interventions Interventions:: Observation, Intravenous fluid - Medications Administered Intravenous: Antiemetic, NSAID, Other (PPI) - Data Reviewed Data Reviewed: Lab, Old records - Patient Status Patient status: Mostly improved - Continuity of Care Discussed patient case with:: Patient, ED Nurse - Patient Plan Patient Plan: Discharge, F/U with PCP, Continue present meds Disposition Counseled Patient/Family Regarding: Studies Performed, Diagnosis, Need For Followup, Rx Given - Disposition Referrals: Rocio Hartley MD [Medical Doctor] - Disposition: HOME/ ROUTINE Disposition Time: 17:11 Condition: IMPROVED Additional Instructions: Follow up with your doctor for further evaluation and treatment. Return to the ER if you develop fever, vomiting, bloody stools, worsening of symptoms or if you have any other concerns. Prescriptions: Ondansetron [Zofran] 4 mg PO Q8H PRN #15 tab PRN Reason: Nausea/Vomiting Pantoprazole Sodium [Protonix] 40 mg PO DAILY #14 ect Instructions: Abdominal Pain (ED) Forms: [employer] (Sudanese) Print Language: HAITIAN - Clinical Impression Clinical Impression: Nausea vomiting and diarrhea, Abdominal pain
[2017-10-13 17:29] VITALS: BP 126/72; PULSE 87; O2SAT 96
== END 2017-10-13 17:29 | disposition home or self-care (01) ==
LOC: C.ER 12:31
DX: R10.9 Unspecified abdominal pain (principal); R11.2 Nausea with vomiting, unspecified; R19.7 Diarrhea, unspecified
CPT/HCPCS: 80053; 81001; 83690; 85025; 87804; 96361; 96374; 96375; 99285; C9113; G0480; J1885; J2405; J7040

== ENCOUNTER 2017-12-26 04:05 | Emergency (ER) | payer MEDICARE, OTHER ==
[2017-12-26 04:05] VITALS: BMI 29.2
--- NOTE | 2017-12-26 04:30 | C.PDOC ---
History Of Present Illness <Phil Pritchett R - Last Filed: 12/26/17 06:03> <Mehdi Crisostomo M - Last Filed: 12/26/17 10:20> 67 y/o female brought in by family member due to alcohol intoxication. No signs of injury or trauma. On arrival, patient with slurred speech and unsteady gait. Patient is alert and awake, offers no complaints at this time. (Phil Pritchett) History Per: Family History/Exam Limitations: no limitations Onset/Duration Of Symptoms: Hrs Modifying Factor(s): Alcohol <Phil Pritchett R - Last Filed: 12/26/17 06:03> <Mehdi Crisostomo M - Last Filed: 12/26/17 10:20> Time Seen by Provider: 12/26/17 04:20 Chief Complaint (Nursing): Substance Abuse Past Medical History Reviewed: Historical Data, Nursing Documentation, Vital Signs - Medical History PMH: Anxiety, Arthritis, Asthma, Bipolar Disorder, Bronchitis, CAD, Depression, Diabetes, Gastritis, Gall Bladder Disease, GERD, HTN, Hypercholesterolemia, Hypothyroidism, Osteoporosis, Pneumonia, Pulmonary Embolism Denies: Chronic Kidney Disease, Seizures, Sexually Transmitted Disease Comment Only: HIV (denies) Surgical History: CABG, Cholecystectomy, Coronary Stent Family History: States: Unknown Family Hx - Social History Hx Tobacco Use: Yes Hx Alcohol Use: Yes Hx Substance Use: No - Immunization History Hx Tetanus Toxoid Vaccination: No Hx Influenza Vaccination: No Hx Pneumococcal Vaccination: No <Phil Pritchett - Last Filed: 12/26/17 06:03> Vital Signs: Last Vital Signs Temp 97.7 F 12/26/17 07:39 Pulse 87 12/26/17 07:39 Resp 18 12/26/17 07:39 BP 120/79 12/26/17 07:39 Pulse Ox 97 12/26/17 07:39 - [facility] Procedures ALCOHOL DETOXIFICATION (03/15/15) INDIVID PSYCHOTHERAP NEC (04/14/13) INTRODUCTION OF ANTI-INFLAM INTO RESP TRACT, VIA OPENING (01/25/17) INTRODUCTION OF SERUM/TOX/VACCINE INTO MUSCLE, PERC APPROACH (09/02/17) OTHER GROUP THERAPY (04/14/13) Review Of Systems Except As Marked, All Systems Reviewed And Found Negative. Cardiovascular: Negative for: Chest Pain Respiratory: Negative for: Shortness of Breath Gastrointestinal: Negative for: Vomiting, Abdominal Pain Psych: Positive for: Other (alcohol intoxication) <Phil Pritchett R - Last Filed: 12/26/17 06:03> Physical Exam - Physical Exam Appears: Non-toxic, No Acute Distress Skin: Normal Color, Warm, Dry Head: Atraumatic, Normacephalic Eye(s): bilateral: Normal Inspection, PERRL, EOMI Oral Mucosa: Moist Neck: Normal, Normal ROM Chest: Symmetrical Cardiovascular: Rhythm Regular, No Murmur Respiratory: Normal Breath Sounds, No Accessory Muscle Use Gastrointestinal/Abdominal: Soft, No Tenderness, No Distention Extremity: Bilateral: Atraumatic, Normal Color And Temperature, Normal ROM Neurological/Psych: Other (Awake and alert, slurred speech, responsive to questions) Gait: Unsteady <Phil Pritchett R - Last Filed: 12/26/17 06:03> ED Course And Treatment - Laboratory Results Result Diagrams: 12/26/17 04:34 12/26/17 04:34 O2 Sat by Pulse Oximetry: 90 (RA) Pulse Ox Interpretation: Abnormal <Phil Pritchett R - Last Filed: 12/26/17 06:03> - Laboratory Results Result Diagrams: 12/26/17 04:34 12/26/17 04:34 <Mehdi Crisostomo M - Last Filed: 12/26/17 10:20> Medical Decision Making <Phil Pritchett R - Last Filed: 12/26/17 06:03> <Mehdi Crisostomo M - Last Filed: 12/26/17 10:20> Medical Decision Making: Time: 4:22 Initial Plan: * Alcohol serum * Urine drug screen * Urinalysis * CMP * CBC * Accucheck (Phil Pritchett R) Disposition - Disposition Disposition Time: 07:00 - POA Present On Arrival: None <Phil Pritchett R - Last Filed: 12/26/17 06:03> <Mehdi Crisostomo M - Last Filed: 12/26/17 10:20> - Disposition Condition: STABLE Forms: [facility] (Greenlandic) - Clinical Impression Clinical Impression: Alcohol intoxication - Scribe Statement The provider has reviewed the documentation as recorded by the Scribe (Cinthya Medeiros) <Phil Pritchett R - Last Filed: 12/26/17 06:03> <Mehdi Crisostomo - Last Filed: 12/26/17 10:20> - Scribe Statement Provider Attestation: All medical record entries made by the Scribe were at my direction and personally dictated by me. I have reviewed the chart and agree that the record accurately reflects my personal performance of the history, physical exam, medical decision making, and the department course for this patient. I have also personally directed, reviewed, and agree with the discharge instructions and disposition. (Phil Pritchett) Physician Patient Turnover Patient Signed Over To: Mehdi Crisostomo Handoff Comments: discharge pending sobriety. <Phil Pritchett - Last Filed: 12/26/17 06:03> Addendum <Phil Pritchett - Last Filed: 12/26/17 06:03> <Mehdi Crisostomo - Last Filed: 12/26/17 10:20> Addendum: 12/26/17 10:19 Received patient in s/o pending sobriety, reevaluation and disposition. patient now awake, alert without complaint and asking to go home. Will discharge patient home and advised to follow up with medical clinic. Advised patient to decrease her alcohol intake. Patient discharged home without incident. (Medhi Crisostomo)
[2017-12-26 04:41] LABS: HEMOGLOBIN 11.5 g/dL (11.0-16.0)
[2017-12-26 04:44] LABS: SQUAMOUS EPITHIAL < 1 /hpf (0-5); URINE BILIRUBIN NEGATIVE (NEGATIVE); URINE BLOOD NEGATIVE (NEGATIVE); URINE CLARITY Clear (Clear); URINE COLOR Straw (YELLOW); URINE GLUCOSE (UA) NORMAL (Normal); URINE LEUKOCYTE ESTERASE NEG Leu/uL (Negative); URINE PROTEIN NEGATIVE (NEGATIVE); URINE UROBILINOGEN NORMAL mg/dL (0.2-1.0)
[2017-12-26 04:47] LABS: BASO # 0.1 K/uL (0.0-0.2); BASO % 1.1 % (0.0-2.0); EOS # 0.2 K/uL (0.0-0.7); EOS % 2.2 % (0.0-4.0); LYMPH # 4.2 K/uL (1.0-4.3); LYMPH % 48.1 % (20.0-40.0); MEAN CELL VOLUME 89.6 fL (81.0-99.0); MEAN CORPUSCULAR HEMOGLOBIN 30.2 pg (27.0-31.0); MEAN CORPUSCULAR HGB CONC 33.7 g/dL (33.0-37.0); MEAN PLATELET VOLUME 8.9 fL (7.2-11.7); MONO # 0.7 K/uL (0.0-0.8); MONO % 8.2 % (0.0-10.0); NEUT # 3.5 K/uL (1.8-7.0); NEUT % 40.4 % (50.0-75.0); NRBC % 0.3 % (0.0-2.0); RBC 3.82 Mil/uL (3.80-5.20); WHITE BLOOD COUNT 8.7 K/uL (4.8-10.8)
[2017-12-26 04:55] LABS: ALB/GLOB RATIO 0.7 (1.0-2.1); ALBUMIN 3.3 g/dL (3.5-5.0); ALT/SGPT 112 U/L (9-52); AST/SGOT 251 U/L (14-36); BLOOD UREA NITROGEN 11 mg/dL (7-17); CALCIUM 7.9 mg/dl (8.6-10.4); GFR AFRICAN-AMERICAN > 60; GFR NON-AFRICAN AMERICAN > 60
[2017-12-26 04:58] LABS: BARBITURATES, UR NEGATIVE (NEGATIVE); OPIATES, UR NEGATIVE (NEGATIVE); PHENCYCLIDINE, UR NEGATIVE (NEGATIVE)
[2017-12-26 05:09] LABS: BENZODIAZEPINES, UR POSITIVE (NEGATIVE)
[2017-12-26 11:43] VITALS: O2SAT 99
[2017-12-26 12:59] VITALS: BP 124/79; PULSE 92; RESP 16; TEMP 98.5
== END 2017-12-26 14:57 | disposition home or self-care (01) ==
LOC: C.ER 04:05
DX: F10.129 Alcohol abuse with intoxication, unspecified (principal); Y90.8 Blood alcohol level of 240 mg/100 ml or more
CPT/HCPCS: 36415; 80053; 81001; 82948; 85025; 99285; G0480

== ENCOUNTER 2018-01-10 21:20 | Emergency (ER) | payer MEDICARE, OTHER ==
[2018-01-10 21:21] VITALS: BMI 29.2
--- NOTE | 2018-01-10 23:01 | C.PDOC ---
History Of Present Illness Patient is a 67 y/o female who presents to the ED BIBA with family complaining of acute EtOH intoxication. Patient admits to drinking 6 beers today, admitting she drinks daily. No physical complaints at this time. Time Seen by Provider: 01/10/18 22:39 Chief Complaint (Nursing): Substance Abuse History Per: Patient, Family History/Exam Limitations: no limitations Onset/Duration Of Symptoms: Hrs Current Symptoms Are (Timing): Still Present Suicide/Self Injury Attempted (Context): None Modifying Factor(s): Alcohol Recent travel outside of the [place] States: No Past Medical History Reviewed: Historical Data, Nursing Documentation, Vital Signs Vital Signs: Last Vital Signs Temp 98.4 F 01/10/18 21: Pulse 92 H 01/10/18 21:26 Resp 20 01/10/18 21:26 BP 123/82 01/10/18 21: Pulse Ox 95 01/10/18 23:01 - Medical History PMH: Anxiety, Arthritis, Asthma, Bipolar Disorder, Bronchitis, CAD, Depression, Diabetes, Gastritis, Gall Bladder Disease, GERD, HTN, Hypercholesterolemia, Hypothyroidism, Osteoporosis, Pneumonia, Pulmonary Embolism Denies: Chronic Kidney Disease, Seizures, Sexually Transmitted Disease Comment Only: HIV (denies) Surgical History: CABG, Cholecystectomy, Coronary Stent - [facility] Procedures ALCOHOL DETOXIFICATION (03/15/15) INDIVID PSYCHOTHERAP NEC (04/14/13) INTRODUCTION OF ANTI-INFLAM INTO RESP TRACT, VIA OPENING (01/25/17) INTRODUCTION OF SERUM/TOX/VACCINE INTO MUSCLE, PERC APPROACH (09/02/17) OTHER GROUP THERAPY (04/14/13) Family History: States: No Known Family Hx - Social History Hx Tobacco Use: Yes Hx Alcohol Use: Yes Hx Substance Use: No - Immunization History Hx Tetanus Toxoid Vaccination: No Hx Influenza Vaccination: No Hx Pneumococcal Vaccination: No Review Of Systems Neurological: Positive for: Other (EtOH intoxication) Physical Exam - Physical Exam Appears: No Acute Distress, Other (EtOH on breath) Skin: Normal Color, Warm, Dry Head: Atraumatic, Normacephalic Eye(s): bilateral: PERRL, EOMI Oral Mucosa: Moist Chest: Symmetrical Cardiovascular: Rhythm Regular, No Murmur Respiratory: No Decreased Breath Sounds, No Rales, No Rhonchi, No Wheezing Gastrointestinal/Abdominal: Soft, No Tenderness, No Guarding, No Rebound Neurological/Psych: No Normal Speech (mumbling, stuttering) ED Course And Treatment O2 Sat by Pulse Oximetry: 95 Progress Note: Patient to be discharged upon sobriety. Disposition - Disposition Disposition Time: 00:31 Condition: STABLE - Clinical Impression Clinical Impression: Alcohol intoxication - Scribe Statement The provider has reviewed the documentation as recorded by the Scribe Gela Dumont All medical record entries made by the Scribe were at my direction and personally dictated by me. I have reviewed the chart and agree that the record accurately reflects my personal performance of the history, physical exam, medical decision making, and the department course for this patient. I have also personally directed, reviewed, and agree with the discharge instructions and disposition. Physician Patient Turnover Patient Signed Over To: Gloria Posadas Handoff Comments: pending sobriety
[2018-01-11 05:40] VITALS: BP 124/80; PULSE 90; RESP 16; TEMP 98.9; O2SAT 95
== END 2018-01-11 05:41 | disposition home or self-care (01) ==
LOC: C.ER 21:20
DX: F10.129 Alcohol abuse with intoxication, unspecified (principal); Y90.9 Presence of alcohol in blood, level not specified

== ENCOUNTER 2018-01-21 13:18 | Emergency (ER) | payer MEDICARE, OTHER ==
[2018-01-21 13:18] VITALS: BMI 29.2
[2018-01-21 13:33] VITALS: RESP 20; TEMP 98; O2SAT 95
[2018-01-21] MEDS ORDERED: Phenylephrine 1% Nasal Spray (15 ml) NAS STA (13:38)
[2018-01-21] MEDS ORDERED: Phenylephrine 1% Nasal Spray (15 ml) ONE (13:43)
[2018-01-21 14:17] LABS: BASO % 0.5 % (0.0-2.0); EOS % 0.2 % (0.0-4.0); HEMOGLOBIN 10.6 g/dL (11.0-16.0); LYMPH # 0.9 K/uL (1.0-4.3); MEAN CELL VOLUME 91.4 fL (81.0-99.0); MEAN CORPUSCULAR HEMOGLOBIN 31.2 pg (27.0-31.0); MEAN CORPUSCULAR HGB CONC 34.2 g/dL (33.0-37.0); MEAN PLATELET VOLUME 10.2 fL (7.2-11.7); MONO # 0.3 K/uL (0.0-0.8); MONO % 5.6 % (0.0-10.0); NEUT # 4.7 K/uL (1.8-7.0); NEUT % 78.7 % (50.0-75.0); NRBC % 0.1 % (0.0-2.0); RBC 3.4 Mil/uL (3.80-5.20); RED CELL DISTRIBUTION WIDTH 16.7 % (11.5-14.5)
[2018-01-21 14:24] LABS: INR 1.4; PROTHROMBIN TIME 15.7 SECONDS (9.7-12.2)
[2018-01-21 14:34] LABS: ALB/GLOB RATIO 0.6 (1.0-2.1); ALBUMIN 2.9 g/dL (3.5-5.0); ALT/SGPT 138 U/L (9-52); AST/SGOT 390 U/L (14-36); BLOOD UREA NITROGEN 11 mg/dL (7-17); GFR AFRICAN-AMERICAN > 60; GFR NON-AFRICAN AMERICAN > 60
[2018-01-21 14:45] VITALS: BP 128/80; PULSE 87
--- NOTE | 2018-01-21 14:59 | C.PDOC ---
History Of Present Illness 67 year old female presents to the emergency department with complaint of epistaxis from the right nare throughout this morning (intermittently over the past 4-5 hrs). Patient denies falls/injuries, headache, dizziness, chest pain, shortness of breath, fever. Time Seen by Provider: 01/21/18 13:38 Chief Complaint (Nursing): ENT Problem History Per: Patient History/Exam Limitations: None Onset/Duration Of Symptoms: Hrs (4-5) Current Symptoms Are (Timing): Still Present Symptoms Have Been: Episodic Severity: Mild Past Medical History Reviewed: Historical Data, Nursing Documentation, Vital Signs Vital Signs: Last Vital Signs Temp 98 F 01/21/18 13:23 Pulse 87 01/21/18 14:45 Resp 20 01/21/18 14:45 BP 128/80 01/21/18 14:45 Pulse Ox 95 01/21/18 16:39 - Medical History PMH: Anxiety, Arthritis, Asthma, Bipolar Disorder, Bronchitis, CAD, Depression, Diabetes, Gastritis, GERD, HTN, Hypercholesterolemia, Hypothyroidism, Osteoporosis, Pneumonia, Pulmonary Embolism, Chronic Kidney Disease Surgical History: CABG, Cholecystectomy, Coronary Stent - [facility] Procedures ALCOHOL DETOXIFICATION (03/15/15) INDIVID PSYCHOTHERAP NEC (04/14/13) INTRODUCTION OF ANTI-INFLAM INTO RESP TRACT, VIA OPENING (01/25/17) INTRODUCTION OF SERUM/TOX/VACCINE INTO MUSCLE, PERC APPROACH (09/02/17) OTHER GROUP THERAPY (04/14/13) Family History: States: No Known Family Hx - Social History Hx Tobacco Use: Yes Hx Alcohol Use: No Hx Substance Use: No Review Of Systems Constitutional: Negative for: Fever, Chills ENT: Positive for: Other (epistaxis right nare). Negative for: Ear Discharge, Nose Pain, Nose Congestion, Throat Pain Cardiovascular: Negative for: Chest Pain Respiratory: Negative for: Cough, Shortness of Breath Skin: Negative for: Rash Neurological: Negative for: Headache, Dizziness Physical Exam - Physical Exam Appears: Well, Non-toxic, No Acute Distress, Other (speaking in full sentences) Nose: Epistaxis (mild epistaxis of right nare), Other (no active blood in oropharynx ) Tongue: Other (dried dark blood on tongue) Throat: Normal, No Erythema, No Exudate, No Drooling Cardiovascular: Rhythm Regular Respiratory: Normal Breath Sounds, No Rales, No Rhonchi, No Wheezing Neurological/Psych: Oriented x3 ED Course And Treatment - Laboratory Results Result Diagrams: 01/21/18 14:11 01/21/18 14:11 O2 Sat by Pulse Oximetry: 95 (RA) Pulse Ox Interpretation: Normal Progress Note: Plan: Blood work ordered and reviewed. Rhinorocket impregnated with neosynephrine and inserted into right nare by me. Patient tolerated well. Patient has PCN/cephalosporin allergy (unable to give details) - PO Clindamycin given instead of augmentin. Blood work shows some elevation in liver enzymes - patient has h/o alcohol abuse. Reevaluation Time: 15:10 Reassessment Condition: Improved (On reassessment, patient is resting comfortably and epistaxis has resolved. Patient made aware of bloof test results. She was instructed to follow up with ENT in 1-2 days, and given Rx for clindamycin. She understands she should return to ED if symptoms return/ worsen.) Disposition Counseled Patient/Family Regarding: Studies Performed, Diagnosis, Need For Followup, Rx Given - Disposition Referrals: Yovany Layne MD [Staff Provider] - Rocio Hartley MD [Medical Doctor] - Disposition: HOME/ ROUTINE Disposition Time: 15:10 Condition: STABLE Additional Instructions: CALL DR LAYNE'S OFFICE TOMOROW AND SCHEDULE APPOINTMENT FOR THIS WEEK USE ANTIBIOTICS UNTIL FINISHED RETURN TO EMERGENCY IF BLEEDING RESTARTS DECREASE YOUR INTAKE OF ALCOHOL OFICINA DEL MAANA DE LA OFICINA DE DR. LAYNE Y PROGRAMA NOMBRAMIENTO PARA ESTA SEMANA USE ANTIBITICOS HASTA QUE HAYA TERMINADO VOLVER A LA EMERGENCIA SI RESBALOS DE SANGR[place]O DISMINUYA MALDONADO INGESTA DE ALCOHOL Prescriptions: Clindamycin [Cleocin] 300 mg PO TID #21 cap Instructions: Nosebleeds (DC) Forms: [facility] (Serbian) Print Language: LEBANESE - Clinical Impression Clinical Impression: Epistaxis, Alcohol use, Anemia, Thrombocytopenia, Elevated liver enzymes - Scribe Statement The provider has reviewed the documentation as recorded by the Scribe (Darinel Chang) Provider Attestation: All medical record entries made by the Scribe were at my direction and personally dictated by me. I have reviewed the chart and agree that the record accurately reflects my personal performance of the history, physical exam, medical decision making, and the department course for this patient. I have also personally directed, reviewed, and agree with the discharge instructions and disposition.
== END 2018-01-21 15:20 | disposition home or self-care (01) ==
LOC: C.ER 13:18
DX: R04.0 Epistaxis (principal); D64.9 Anemia, unspecified; D69.6 Thrombocytopenia, unspecified; R74.8 Abnormal levels of other serum enzymes; Z72.89 Other problems related to lifestyle

== ENCOUNTER 2018-02-24 00:05 | Emergency (ER) | payer MEDICARE, OTHER ==
[2018-02-24 00:05] VITALS: BMI 29.2
[2018-02-24 00:12] VITALS: TEMP 98.9
--- NOTE | 2018-02-24 00:42 | C.PDOC ---
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 Pt reports, pain is localized, worsen with movement. Otherwise, pt denies head injury, LOC, syncope, headache, dizziness, neck pain, CP, SOB, dyspnea, palpitation, abd. pain, N/V, incontinence, denies deformity/weakness/sensory or vascular deficits to B/L UEs and LEs. At the time of evaluation, AAO#3, ambulatory in Ed with stable gait, not in any apparent distress. Time Seen by Provider: 02/24/18 00:10 Chief Complaint (Nursing): Back Pain History Per: Patient Past Medical History Reviewed: Historical Data, Nursing Documentation, Vital Signs Vital Signs: Last Vital Signs Temp 98.9 F 02/24/18 00:09 Pulse 84 02/24/18 00:09 Resp 18 02/24/18 00:09 BP 158/76 H 02/24/18 00:09 Pulse Ox 100 02/24/18 01:40 - Medical History PMH: Anemia, Anxiety, Arthritis, Asthma, Bipolar Disorder, Bronchitis, CAD, COPD , Depression, Diabetes, Gastritis, GERD, HTN, Hypercholesterolemia, Hypothyroidism, Osteoporosis, Pneumonia, Pulmonary Embolism, Chronic Kidney Disease Denies: Hepatitis, HIV, Seizures, Sexually Transmitted Disease Surgical History: CABG, Cholecystectomy, Coronary Stent - [facility] Procedures ALCOHOL DETOXIFICATION (03/15/15) GROUP PSYCHOTHERAPY (02/03/18) INDIV PSYCHOTHERAPY FOR SUBSTANCE ABUSE, COGNITIV BEHAVIORAL (02/03/18) INDIVID PSYCHOTHERAP NEC (04/14/13) INDIVIDUAL PSYCHOTHERAPY, COGNITIVE-BEHAVIORAL (02/03/18) INTRODUCTION OF ANTI-INFLAM INTO RESP TRACT, VIA OPENING (01/25/17) INTRODUCTION OF SERUM/TOX/VACCINE INTO MUSCLE, PERC APPROACH (09/02/17) OTHER GROUP THERAPY (04/14/13) Family History: States: Unknown Family Hx - Social History Hx Tobacco Use: Yes Hx Alcohol Use: Yes Hx Substance Use: No Review Of Systems Except As Marked, All Systems Reviewed And Found Negative. Constitutional: Negative for: Fever, Chills Eyes: Negative for: Vision Change ENT: Negative for: Ear Discharge, Nose Discharge Cardiovascular: Negative for: Chest Pain, Palpitations, Light Headedness Respiratory: Negative for: Shortness of Breath, Wheezing Gastrointestinal: Negative for: Nausea, Vomiting, Abdominal Pain Genitourinary: Negative for: Incontinence Musculoskeletal: Positive for: Back Pain. Negative for: Neck Pain Skin: Negative for: Bruising Neurological: Negative for: Weakness, Numbness, Altered Mental Status, Headache , Dizziness Physical Exam - Physical Exam Appears: Well, Non-toxic, No Acute Distress Skin: Normal Color, Warm, Dry, No Rash, No Ecchymosis Head: Atraumatic, Normacephalic Eye(s): bilateral: PERRL Ear(s): Bilateral: Normal Nose: No Flaring, No Deformity, No Tenderness Oral Mucosa: Moist, No Drooling, No Trismus Tongue: Normal Appearing Lips: Normal Appearing Throat: No Drooling Neck: Trachea Midline, No Midline Cervical Tenderness, No Paracervical Tenderness, No Step Off Deformity, Supple Chest: Symmetrical, No Deformity, No Tenderness Cardiovascular: Rhythm Regular Respiratory: No Decreased Breath Sounds, No Accessory Muscle Use, No Stridor, No Wheezing Gastrointestinal/Abdominal: Soft, No Tenderness, No Distention, No Guarding Back: No CVA Tenderness, No Vertebral Tenderness, No Muscle Spasm, Paraspinal Tenderness (Right lumbar, mild), Other (Right flank tenderness) Extremity: Normal ROM, No Tenderness, No Deformity, No Swelling Extremity: Bilateral: Atraumatic Neurological/Psych: Oriented x3, Normal Speech, Normal Motor, Normal Sensation, Normal Reflexes ED Course And Treatment O2 Sat by Pulse Oximetry: 100 Pulse Ox Interpretation: Normal - Other Rad L-spine X-Ray: Interpreted by Me, Viewed By Me Interpretation: (-) acute fx or sublux Progress Note: On re-evaluation, pt is afebrile, hemodynamicaly stable. Non- toxic. AMbulatory in Ed with stable gait. Head: AT/NC Neck: Supple, (-) midline tenderness. Lungs: CTA B/L, BS equal B/L. Abd: benig, (-) guarding, (- ) rebound. Neurologicaly intact. Imaging review- no acute findings, UA- no acute findings. Pt has clinical finidngs c/w Right sided lumbr caontusion/Right flank contusion s/p mechanical fall. Pt advised. ref. to f/u with PMD in 2-3 days for re-evaluation. return to ED if any worsening or new changes. Disposition Counseled Patient/Family Regarding: Studies Performed, Diagnosis, Need For Followup - Disposition Referrals: Rocio Hartley MD [Medical Doctor] - Disposition: HOME/ ROUTINE Disposition Time: 01:40 Condition: STABLE Additional Instructions: Follow up with PMD in 2- 3 days for re-evaluation. return to ED if any worsening or new changes. Instructions: Lumbar Muscle Strain (DC) Forms: [facility] (Urdu) Print Language: ENGLISH - Clinical Impression Clinical Impression: Low back strain, Contusion, flank
[2018-02-24 01:25] LABS: SQUAMOUS EPITHIAL 2 /hpf (0-5); URINE BACTERIA RARE (<OCC); URINE BILIRUBIN NEGATIVE (NEGATIVE); URINE CLARITY Hazy (Clear); URINE COLOR Yellow (YELLOW); URINE GLUCOSE (UA) NORMAL (Normal); URINE LEUKOCYTE ESTERASE TRACE Leu/uL (Negative); URINE PROTEIN NEGATIVE (NEGATIVE)
[2018-02-24 01:26] LABS: URINE BLOOD NEGATIVE (NEGATIVE)
[2018-02-24 03:23] VITALS: BP 116/82; PULSE 88; RESP 20; O2SAT 99
--- NOTE | 2018-02-24 08:59 | RAD ---
Lumbar spine three views History: Injury. Comparison: None available. Findings Grade 1 anterolisthesis of L4 on L5. Question minimal anterolisthesis of L5 on S1. Question minimal retrolisthesis of L3 on L4. Lower level facet hypertrophy and sclerosis. Inferior endplate concavity of the L5 vertebral body. IVC filter in place. Multilevel anterior osteophytosis within the lower thoracic spine. Surgical clips in the right upper abdomen. Degenerative changes of the bilateral hips. Small rounded radiopaque density adjacent to right superior bony acetabulum may represent small avulsion injury, possibly chronic versus degenerative change. Moderate fecal retention colon. Small radiopaque density projects adjacent to the IVC filter on the lateral view in the upper abdomen, nonspecific. Clinical correlation. Impression: Degenerative changes. If pain persists, consider MRI.
== END 2018-02-24 02:50 | disposition home or self-care (01) ==
LOC: C.ER 00:05
DX: S30.1XXA Contusion of abdominal wall, initial encounter (principal); S39.012A Strain of muscle, fascia and tendon of lower back, initial encounter; W07.XXXA Fall from chair, initial encounter; E78.00 Pure hypercholesterolemia, unspecified; I12.9 Hypertensive chronic kidney disease with stage 1 through stage 4 chronic kidney disease, or unspecified chronic kidney disease; N18.9 Chronic kidney disease, unspecified; I25.10 Atherosclerotic heart disease of native coronary artery without angina pectoris; E03.9 Hypothyroidism, unspecified

== ENCOUNTER 2018-02-24 21:24 | Emergency (ER) | payer MEDICARE, OTHER ==
[2018-02-24 21:24] VITALS: BMI 29.2
[2018-02-24 21:35] VITALS: BP 117/74; PULSE 82; RESP 16; TEMP 99.1; O2SAT 95
--- NOTE | 2018-02-24 22:00 | C.PDOC ---
History Of Present Illness 67 yr old F c/o left sided back pain with radiation to left leg since AM. Pt was seen last night in ED, had lumbar Xray, degenerative changes. Denies new trauma, fall, urinary /bowel incontinence. No pain meds taken. Time Seen by Provider: 02/24/18 21:49 Chief Complaint (Nursing): Back Pain History Per: Patient History/Exam Limitations: language barrier (translated from Guyanese by Kandice LUCAS ) Onset/Duration Of Symptoms: Days (1) Quality Of Discomfort: "Pain" Severity: Moderate Past Medical History Reviewed: Historical Data, Nursing Documentation, Vital Signs Vital Signs: Last Vital Signs Temp 99.1 F 02/24/18 21:34 Pulse 82 02/24/18 21:34 Resp 16 02/24/18 21:34 BP 117/74 02/24/18 21:34 Pulse Ox 95 02/24/18 22:31 - Medical History PMH: Anemia, Anxiety, Arthritis, Asthma, Bipolar Disorder, Bronchitis, CAD, COPD , Depression, Diabetes, Gastritis, GERD, HTN, Hypercholesterolemia, Hypothyroidism, Osteoporosis, Pneumonia, Pulmonary Embolism, Chronic Kidney Disease Denies: Hepatitis, HIV, Seizures, Sexually Transmitted Disease Surgical History: CABG, Cholecystectomy, Coronary Stent - [facility] Procedures ALCOHOL DETOXIFICATION (03/15/15) GROUP PSYCHOTHERAPY (02/03/18) INDIV PSYCHOTHERAPY FOR SUBSTANCE ABUSE, COGNITIV BEHAVIORAL (02/03/18) INDIVID PSYCHOTHERAP NEC (04/14/13) INDIVIDUAL PSYCHOTHERAPY, COGNITIVE-BEHAVIORAL (02/03/18) INTRODUCTION OF ANTI-INFLAM INTO RESP TRACT, VIA OPENING (01/25/17) INTRODUCTION OF SERUM/TOX/VACCINE INTO MUSCLE, PERC APPROACH (09/02/17) OTHER GROUP THERAPY (04/14/13) Family History: States: Unknown Family Hx - Social History Hx Tobacco Use: Yes Hx Alcohol Use: Yes Hx Substance Use: No Review Of Systems Constitutional: Negative for: Fever Cardiovascular: Negative for: Chest Pain Respiratory: Negative for: Cough Gastrointestinal: Negative for: Nausea, Vomiting, Abdominal Pain Musculoskeletal: Positive for: Back Pain Skin: Negative for: Rash Neurological: Negative for: Weakness, Numbness Physical Exam - Physical Exam Appears: Well, Non-toxic Skin: Warm, Dry Head: Atraumatic, Normacephalic Eye(s): bilateral: Normal Inspection Neck: Normal, Normal ROM Chest: Symmetrical Cardiovascular: Rhythm Regular Respiratory: Normal Breath Sounds Gastrointestinal/Abdominal: Normal Exam, Soft, No Tenderness Back: Straight Leg Raising (left), Other (left low back tenderness to palpation) Extremity: Normal ROM ED Course And Treatment O2 Sat by Pulse Oximetry: 95 Pulse Ox Interpretation: Normal Progress Note: pt treated with toradol and tylenol. pt reports improvement of pain, ambulates well. Reassessment Condition: Improved Disposition Counseled Patient/Family Regarding: Diagnosis, Need For Followup, Rx Given - Disposition Referrals: Non [facility] Provider, [Non-Staff] - Disposition: HOME/ ROUTINE Disposition Time: 22:28 Condition: STABLE Additional Instructions: FOLLOW UP WITH YOUR PMD ON MONDAY FOR RE-EVALUATION. IF SYMPTOMS GET WORSE OR ANY NEW CONCERNING SYMPTOMS DEVELOP RETURN TO ED. Prescriptions: Ibuprofen [Ibu] 1 tab PO Q6H PRN #15 tablet PRN Reason: Pain, Moderate (4-7) Instructions: Sciatica Forms: [facility] (Lao), Gen Discharge Inst Guyanese Print Language: SYRIAC - Clinical Impression Clinical Impression: Sciatica
== END 2018-02-24 22:45 | disposition home or self-care (01) ==
LOC: C.ER 21:24
DX: M54.30 Sciatica, unspecified side (principal); E03.9 Hypothyroidism, unspecified; E78.00 Pure hypercholesterolemia, unspecified; I25.10 Atherosclerotic heart disease of native coronary artery without angina pectoris; I12.9 Hypertensive chronic kidney disease with stage 1 through stage 4 chronic kidney disease, or unspecified chronic kidney disease; N18.9 Chronic kidney disease, unspecified; Z72.0 Tobacco use
CPT/HCPCS: 96372; 99283; J1885

== ENCOUNTER 2018-03-01 10:29 | Emergency (ER) | payer MEDICARE, OTHER ==
[2018-03-01 10:29] VITALS: BMI 29.2
[2018-03-01 10:56] VITALS: BP 150/82; PULSE 76; RESP 20; TEMP 98.2; O2SAT 96
--- NOTE | 2018-03-01 12:03 | RAD ---
PROCEDURE: Bilateral Knee Radiographs. HISTORY: r/o fx COMPARISON: 05/17/2014 FINDINGS: BONES: Right Knee: No fracture Left Knee: No fracture JOINTS: Right Knee: Interval progressive osteoarthrosis Left knee: Interval progressive osteoarthrosis SOFT TISSUES: Right Knee: Normal. Left Knee: Normal. JOINT EFFUSION: Right Knee: None. Left Knee: None. OTHER FINDINGS: Left Quadriceps insertional enthesophyte IMPRESSION: Interval progressive bilateral knee osteoarthrosis with progressive spurring - each medial femoral tibial compartment appears most notably affected.
--- NOTE | 2018-03-01 14:17 | C.PDOC ---
History Of Present Illness 67 y/o female presents to the ED complaining of bilateral knee pain, for a long time. Denies any recent fall or trauma. Patient is able to ambulate. Otherwise no chest pain, SOB, fever, cough, or calf pain. Time Seen by Provider: 03/01/18 10:56 Chief Complaint (Nursing): Lower Extremity Problem/Injury History Per: Patient History/Exam Limitations: no limitations Onset/Duration Of Symptoms: Days Current Symptoms Are (Timing): Still Present Past Medical History Reviewed: Historical Data, Nursing Documentation, Vital Signs Vital Signs: Last Vital Signs Temp 98.2 F 03/01/18 10:49 Pulse 76 03/01/18 10:49 Resp 20 03/01/18 10:49 BP 150/82 03/01/18 10:49 Pulse Ox 96 03/01/18 14:22 - Medical History PMH: Anemia, Anxiety, Arthritis, Asthma, Bipolar Disorder, Bronchitis, CAD, COPD , Depression, Diabetes, Gastritis, GERD, HTN, Hypercholesterolemia, Hypothyroidism, Osteoporosis, Pneumonia, Pulmonary Embolism, Chronic Kidney Disease Denies: Hepatitis, HIV, Seizures, Sexually Transmitted Disease Surgical History: CABG, Cholecystectomy, Coronary Stent - [facility] Procedures ALCOHOL DETOXIFICATION (03/15/15) GROUP PSYCHOTHERAPY (02/03/18) INDIV PSYCHOTHERAPY FOR SUBSTANCE ABUSE, COGNITIV BEHAVIORAL (02/03/18) INDIVID PSYCHOTHERAP NEC (04/14/13) INDIVIDUAL PSYCHOTHERAPY, COGNITIVE-BEHAVIORAL (02/03/18) INTRODUCTION OF ANTI-INFLAM INTO RESP TRACT, VIA OPENING (01/25/17) INTRODUCTION OF SERUM/TOX/VACCINE INTO MUSCLE, PERC APPROACH (09/02/17) OTHER GROUP THERAPY (04/14/13) Family History: States: Unknown Family Hx - Social History Hx Tobacco Use: Yes Hx Alcohol Use: Yes Hx Substance Use: No - Immunization History Hx Tetanus Toxoid Vaccination: No Hx Influenza Vaccination: No Hx Pneumococcal Vaccination: No Review Of Systems Except As Marked, All Systems Reviewed And Found Negative. Constitutional: Negative for: Fever Cardiovascular: Negative for: Chest Pain Respiratory: Negative for: Cough, Shortness of Breath Musculoskeletal: Positive for: Leg Pain (b/l knee pain). Negative for: Other ( calf pain) Neurological: Negative for: Weakness, Numbness Physical Exam - Physical Exam Appears: Well, Non-toxic, No Acute Distress Skin: Normal Color, Warm, Dry Head: Atraumatic, Normacephalic Eye(s): bilateral: Normal Inspection, PERRL, EOMI Nose: Normal Oral Mucosa: Moist Neck: Normal ROM, Supple Chest: Symmetrical Respiratory: No Accessory Muscle Use Extremity: Normal ROM (of both lower extremities), No Tenderness, No Calf Tenderness, Capillary Refill (<2 sec), No Deformity, No Swelling Pulses: Left Dorsalis Pedis: Normal, Right Dorsalis Pedis: Normal Neurological/Psych: Oriented x3, Normal Speech, Normal Motor, Normal Sensation Gait: Steady ED Course And Treatment O2 Sat by Pulse Oximetry: 96 (RA) Pulse Ox Interpretation: Normal - Other Rad B/L KNEE X-Ray: Viewed By Me, Read By Radiologist Interpretation: FINDINGS: BONES: Right Knee: No fracture. Left Knee: No fracture. JOINTS: Right Knee: Interval progressive osteoarthrosis. Left knee : Interval progressive osteoarthrosis. SOFT TISSUES: Right Knee: Normal. Left Knee: Normal. JOINT EFFUSION: Right Knee: None. Left Knee: None. OTHER FINDINGS: Left Quadriceps insertional enthesophyte. IMPRESSION: Interval progressive bilateral knee osteoarthrosis with progressive spurring - each medial femoral tibial compartment appears most notably affected. Medical Decision Making Medical Decision Making: Impression: Knee pain Plan: --X-ray bilateral knees Informed patient of negative imaging. Patient is stable for discharge home. Advised to follow up with PMD for further evaluation. Disposition Counseled Patient/Family Regarding: Studies Performed, Diagnosis, Need For Followup - [facility] - Disposition: HOME/ ROUTINE Disposition Time: 11:20 Condition: GOOD Additional Instructions: [employer], thank you for letting us take care of you today. Your provider was Alberto Acosta DO and you were treated for LEG PAIN. The emergency medical care you received today was directed at your acute symptoms. If you were prescribed any medication, please fill it and take as directed. It may take several days for your symptoms to resolve. Return to the Emergency Department if your symptoms worsen, do not improve, or if you have any other problems. Please contact your doctor or call one of the physicians/clinics you have been referred to that are listed on the Patient Visit Information form that is included in your discharge packet. Bring any paperwork you were given at discharge with you along with any medications you are taking to your follow up visit. Our treatment cannot replace ongoing medical care by a primary care provider outside of the emergency department. Thank you for allowing the [facility] team to be part of your care today. Follow up with your primary care doctor in 3-5 days for re-evaluation and further management. [employer], lotus por dejarnos atenderlo hoy. Hackett proveedor fue Alberto Acosta DO y usted recibi tratamiento para LEG DOLOR. La atencin mdica de emergencia que recibi hoy estaba dirigida a samantha sntomas agudos. Si le prescribieron algn medicamento, llnelo y tome segn las indicaciones. Samantha s ntomas pueden tardar varios escobar en resolverse. Regrese al Departamento de Emergencia si samantha sntomas empeoran, no mejoran o si tiene algn otro problema. Comunquese con hackett mdico o llame a edouard de los mdicos / clnicas a los que oleary sido referido que figura en el formulario de Informacin de visita del paciente que se incluye en hackett paquete de cecil. Traiga todos los documentos que recibi al momento del cecil junto con los medicamentos que est tomando en hackett visita de seguimiento. Nuestro tratamiento no puede reemplazar la atencin mdica en curso por un proveedor de atencin primaria fuera del departamento de emergencia. Lotus por permitir que el equipo de [facility] sea parte de hackett cuidado hoy. Son un seguimiento con hackett mdico de atencin primaria en 3-5 escobar para cierra reevaluacin y administracin adicional. Prescriptions: Ibuprofen [Motrin] 600 mg PO Q6 PRN #20 tab PRN Reason: Pain, Moderate (4-7) Instructions: Osteoarthritis (DC) Forms: Gen Discharge Inst Pakistani, hereO (Micronesian) Print Language: GREENLANDIC - POA Present On Arrival: None - Clinical Impression Clinical Impression: Knee pain - Scribe Statement The provider has reviewed the documentation as recorded by the Scribe (Cinthya Medeiros) Provider Attestation: All medical record entries made by the Scribe were at my direction and personally dictated by me. I have reviewed the chart and agree that the record accurately reflects my personal performance of the history, physical exam, medical decision making, and the department course for this patient. I have also personally directed, reviewed, and agree with the discharge instructions and disposition.
== END 2018-03-01 12:03 | disposition home or self-care (01) ==
LOC: C.ER 10:29
DX: M25.562 Pain in left knee (principal); M25.561 Pain in right knee

== ENCOUNTER 2018-03-06 00:11 | Emergency (ER) | payer MEDICARE, OTHER ==
[2018-03-06 00:12] VITALS: BMI 29.2
[2018-03-06 00:25] VITALS: RESP 20
--- NOTE | 2018-03-06 00:41 | C.PDOC ---
History Of Present Illness 67 year old female is brought in by EMS after being found intoxicated on the street. Patient admits to drinking alcohol today. Patient denies SI/HI, hallucinations, CP, SOB, abdominal pain. Time Seen by Provider: 03/06/18 00:40 Chief Complaint (Nursing): Substance Abuse History Per: Patient, EMS History/Exam Limitations: intoxication Onset/Duration Of Symptoms: Hrs Current Symptoms Are (Timing): Still Present Modifying Factor(s): Alcohol Associated Symptoms: denies: Depression, Suicidal Thoughts, Suicidal Plan Recent travel outside of the [place]: No Additional History Per: Patient, EMS Past Medical History Reviewed: Historical Data, Nursing Documentation, Vital Signs Vital Signs: Last Vital Signs Temp 98.8 F 03/06/18 00:22 Pulse 84 03/06/18 00:22 Resp 20 03/06/18 00:22 BP 119/80 03/06/18 00:22 Pulse Ox 96 03/06/18 01:23 - Medical History PMH: Anemia, Anxiety, Arthritis, Asthma, Bipolar Disorder, Bronchitis, CAD, COPD , Depression, Diabetes, Gastritis, GERD, HTN, Hypercholesterolemia, Hypothyroidism, Osteoporosis, Pneumonia, Pulmonary Embolism, Chronic Kidney Disease Denies: Hepatitis, HIV, Seizures, Sexually Transmitted Disease Surgical History: CABG, Cholecystectomy, Coronary Stent - [facility] Procedures ALCOHOL DETOXIFICATION (03/15/15) GROUP PSYCHOTHERAPY (02/03/18) INDIV PSYCHOTHERAPY FOR SUBSTANCE ABUSE, COGNITIV BEHAVIORAL (02/03/18) INDIVID PSYCHOTHERAP NEC (04/14/13) INDIVIDUAL PSYCHOTHERAPY, COGNITIVE-BEHAVIORAL (02/03/18) INTRODUCTION OF ANTI-INFLAM INTO RESP TRACT, VIA OPENING (01/25/17) INTRODUCTION OF SERUM/TOX/VACCINE INTO MUSCLE, PERC APPROACH (09/02/17) OTHER GROUP THERAPY (04/14/13) Family History: States: Unknown Family Hx - Social History Hx Tobacco Use: Yes Hx Alcohol Use: Yes Hx Substance Use: No - Immunization History Hx Tetanus Toxoid Vaccination: No Hx Influenza Vaccination: No Hx Pneumococcal Vaccination: No Review Of Systems Constitutional: Negative for: Fever, Chills Cardiovascular: Negative for: Chest Pain, Palpitations Respiratory: Negative for: Shortness of Breath Gastrointestinal: Negative for: Nausea, Vomiting Skin: Negative for: Rash Psych: Negative for: Depression, Suicidal ideation Physical Exam - Physical Exam Appears: Non-toxic, No Acute Distress Skin: Warm, Dry Head: Normacephalic Eye(s): bilateral: Normal Inspection Oral Mucosa: Moist Neck: Supple Chest: Symmetrical Cardiovascular: Rhythm Regular Respiratory: No Rales, No Rhonchi, No Wheezing Gastrointestinal/Abdominal: Soft, No Tenderness, No Guarding, No Rebound Extremity: No Tenderness, No Swelling Extremity: Bilateral: Atraumatic, Normal Color And Temperature, Normal ROM Neurological/Psych: Oriented x3, Normal Speech Gait: Unsteady (due to ETOH) ED Course And Treatment O2 Sat by Pulse Oximetry: 96 Pulse Ox Interpretation: Normal Reevaluation Time: 05:06 Reassessment Condition: Improved Disposition Counseled Patient/Family Regarding: Studies Performed, Diagnosis, Need For Followup - Disposition Referrals: [facility] [Outside] Disposition: HOME/ ROUTINE Disposition Time: 00:40 Condition: FAIR Instructions: Alcohol Abuse and Alcoholism (DC) Forms: Gem (Spanish) - Clinical Impression Clinical Impression: Alcohol abuse, Alcohol abuse with intoxication - PA / OCCUPATIONAL HYGIENIST / Resident Statement MD/DO has reviewed & agrees with the documentation as recorded. - Scribe Statement The provider has reviewed the documentation as recorded by the Scribe Moe Wolff All medical record entries made by the Scribe were at my direction and personally dictated by me. I have reviewed the chart and agree that the record accurately reflects my personal performance of the history, physical exam, medical decision making, and the department course for this patient. I have also personally directed, reviewed, and agree with the discharge instructions and disposition.
[2018-03-06 05:11] VITALS: BP 123/76; PULSE 95; TEMP 98; O2SAT 100
== END 2018-03-06 05:30 | disposition home or self-care (01) ==
LOC: C.ER 00:11
DX: F10.129 Alcohol abuse with intoxication, unspecified (principal); Y90.9 Presence of alcohol in blood, level not specified

== ENCOUNTER 2018-04-02 08:37 | Emergency (ER) | payer OTHER, MEDICARE, MEDICAID ==
[2018-04-02 08:37] VITALS: BMI 24.8
[2018-04-02 09:16] VITALS: RESP 20; TEMP 98
--- NOTE | 2018-04-02 09:36 | C.PDOC ---
History Of Present Illness POOR HISTORIAN REFERRED FOR ABN OUTPT VENOUS DUPLEX. PS DR MINOR OFFICE CALLED HER 04/01 AND TOLD TO COME FOR "LEG CLOT". R THIGH PAIN X 1 WEEK, NEW ONSET SWELL R LEG X 2 DAYS. NO CP, ESPARZA. CO MILD ASTHMA EXAC. PMHx includes asthma and surgical history include cholecystectomy, IVC. PS WAS ON UNK "BLOOD THINNER" BUT RAN OUT 2-3 WEEKS AGO. PS DOES NOT LIKE HER CURRENT PMD DR EGAN AND CURRENTLY LOOKING FOR NEW PMD. EXAM NARD EXT MILD SWELL R LEG, ATRAUM SKIN NEG REMAINDER NEG MDM ADMITTED 03/22 SP EGD AND CATH, RESULTS NEG PER REPORTS. Time Seen by Provider: 04/02/18 09:22 Chief Complaint (Nursing): Medical Clearance History Per: Patient History/Exam Limitations: no limitations Onset/Duration Of Symptoms: Days Current Symptoms Are (Timing): Still Present Severity: Moderate Past Medical History Reviewed: Historical Data, Nursing Documentation, Vital Signs Vital Signs: Last Vital Signs Temp 98 F 04/02/18 09:15 Pulse 74 04/02/18 10:23 Resp 20 04/02/18 10:23 BP 131/71 04/02/18 10:23 Pulse Ox 96 04/02/18 10:23 - Medical History PMH: Anemia, Anxiety, Arthritis, Asthma, Bipolar Disorder, Bronchitis, CAD, COPD , Depression, Diabetes, Gastritis, GERD, HTN, Hypercholesterolemia, Hypothyroidism, Osteoporosis, Pneumonia, Pulmonary Embolism Denies: Hepatitis, HIV, Chronic Kidney Disease, Seizures, Sexually Transmitted Disease Surgical History: CABG, Cholecystectomy, Coronary Stent - [facility] Procedures ALCOHOL DETOXIFICATION (03/15/15) EXCISION OF STOMACH, ENDO, DIAGN (03/10/18) FLUOROSCOPY OF MULT COR ART USING L OSM CONTRAST (03/10/18) GROUP PSYCHOTHERAPY (02/03/18) INDIV PSYCHOTHERAPY FOR SUBSTANCE ABUSE, COGNITIV BEHAVIORAL (02/03/18) INDIVID PSYCHOTHERAP NEC (04/14/13) INDIVIDUAL PSYCHOTHERAPY, COGNITIVE-BEHAVIORAL (02/03/18) INTRODUCTION OF ANTI-INFLAM INTO RESP TRACT, VIA OPENING (01/25/17) INTRODUCTION OF SERUM/TOX/VACCINE INTO MUSCLE, PERC APPROACH (09/02/17) MEASURE OF CARDIAC SAMPL & PRESSURE, L HEART, PERC APPROACH (03/10/18) OTHER GROUP THERAPY (04/14/13) PHYSICAL THERAPY NEC (06/12/14) Family History: States: No Known Family Hx - Social History Hx Tobacco Use: Yes Hx Alcohol Use: Yes Hx Substance Use: No - Immunization History Hx Tetanus Toxoid Vaccination: No Hx Influenza Vaccination: No Hx Pneumococcal Vaccination: No Review Of Systems Except As Marked, All Systems Reviewed And Found Negative. Constitutional: Negative for: Fever, Chills Cardiovascular: Negative for: Chest Pain Musculoskeletal: Positive for: Other (right thigh pain) Neurological: Negative for: Weakness, Numbness Physical Exam - Physical Exam Appears: Other (NARD) Skin: Normal Color, Warm, Dry Head: Atraumatic, Normacephalic Eye(s): bilateral: Normal Inspection Cardiovascular: Rhythm Regular Respiratory: Other (NARD) Extremity: Swelling (mild swelling to right leg) Extremity: Bilateral: Atraumatic Neurological/Psych: Oriented x3, Normal Speech ED Course And Treatment O2 Sat by Pulse Oximetry: 97 (RA) Pulse Ox Interpretation: Normal Progress - Re-Evaluation Re-evaluation Note: 04/02/18 09:58 D/W DR MINOR: [facility] DID NOT ORDER OUTPT VENOUS AND DID NOT CALL PT. [facility] TOOK CARE OF PT DURING RECENT ADMISSION, WILLING TO CONTINUE W PT IN OFFICE. ANGELINA FERNANDEZ. - Data Reviewed Data Reviewed: Old records Medical Decision Making Medical Decision Making: ADMITTED 03/22 SP EGD AND CATH, RESULTS NEG PER REPORTS. Disposition Counseled Patient/Family Regarding: Diagnosis, Need For Followup, Rx Given - Disposition Referrals: Jaron Minor MD [Staff Provider] - Disposition: HOME/ ROUTINE Disposition Time: 10:03 Condition: IMPROVED Additional Instructions: SIGA CON MALDONADO PMD O DR MINOR PARA CONTINUAR MEDICAMENTOS CON DILUYENTE DE PA. CONTINE OTROS MEDICAMENTOS LAWRENCE SE PRESCRIBE. Prescriptions: Apixaban [Eliquis] 10 mg PO BID #14 tab Instructions: Deep Vein Thrombosis (Blood Clots in the Legs) (DC) Forms: [facility] (Swedish) Print Language: ITALIAN - Clinical Impression Clinical Impression: Leg swelling - Scribe Statement The provider has reviewed the documentation as recorded by the Alexanderibmegan Du Provider Attestation: All medical record entries made by the Scribe were at my direction and personally dictated by me. I have reviewed the chart and agree that the record accurately reflects my personal performance of the history, physical exam, medical decision making, and the department course for this patient. I have also personally directed, reviewed, and agree with the discharge instructions and disposition.
[2018-04-02] MEDS ORDERED: Enoxaparin 40 mg Syringe SC STA (09:37)
[2018-04-02] MEDS ORDERED: Enoxaparin 80 mg Syringe ONE (09:56)
[2018-04-02 10:24] VITALS: BP 131/71; PULSE 74
[2018-04-02 10:43] VITALS: O2SAT 97
== END 2018-04-02 10:28 | disposition home or self-care (01) ==
LOC: C.ER 08:37
DX: M79.89 Other specified soft tissue disorders (principal)
CPT/HCPCS: 96372; 99285; J1650

== ENCOUNTER 2018-04-16 01:34 | Emergency (ER) | payer MEDICARE, OTHER ==
[2018-04-16 01:34] VITALS: BMI 24.8
--- NOTE | 2018-04-16 02:01 | C.PDOC ---
History Of Present Illness 67-year-old female presents to the ED with complaints of abdominal pain, nausea , and vomiting. Patient also drinks daily. She admits to drinking tonight. Patient has had a few episodes of non-bloody emesis, including one in ED. Otherwise no fever or chills. Pain is described as dull, achy, and localized to the mid-epigastrium. Time Seen by Provider: 04/16/18 01:56 Chief Complaint (Nursing): Abdominal Pain History Per: Patient History/Exam Limitations: no limitations Onset/Duration Of Symptoms: Hrs Current Symptoms Are (Timing): Still Present Severity: Moderate Pain Scale Rating Of: 5 Location Of Pain/Discomfort: Epigastric Radiation Of Pain To:: None Quality Of Discomfort: Dull, Aching Associated Symptoms: Nausea, Vomiting. denies: Fever, Chills, Diarrhea Alleviating Factors: None Past Medical History Reviewed: Historical Data, Nursing Documentation, Vital Signs Vital Signs: Last Vital Signs Temp 97.8 F 04/16/18 01:45 Pulse 98 H 04/16/18 01:45 Resp 16 04/16/18 01:45 BP 148/80 04/16/18 01:45 Pulse Ox 97 04/16/18 03:12 - Medical History PMH: Anemia, Anxiety, Arthritis, Asthma, Bipolar Disorder, Bronchitis, CAD, COPD , Depression, Diabetes, Gastritis, GERD, HTN, Hypercholesterolemia, Hypothyroidism, Osteoporosis, Pneumonia, Pulmonary Embolism Denies: Hepatitis, HIV, Chronic Kidney Disease, Seizures, Sexually Transmitted Disease Surgical History: CABG, Cholecystectomy, Coronary Stent - [facility] Procedures ALCOHOL DETOXIFICATION (03/15/15) EXCISION OF STOMACH, ENDO, DIAGN (03/10/18) FLUOROSCOPY OF MULT COR ART USING L OSM CONTRAST (03/10/18) GROUP PSYCHOTHERAPY (02/03/18) INDIV PSYCHOTHERAPY FOR SUBSTANCE ABUSE, COGNITIV BEHAVIORAL (02/03/18) INDIVID PSYCHOTHERAP NEC (04/14/13) INDIVIDUAL PSYCHOTHERAPY, COGNITIVE-BEHAVIORAL (02/03/18) INTRODUCTION OF ANTI-INFLAM INTO RESP TRACT, VIA OPENING (01/25/17) INTRODUCTION OF SERUM/TOX/VACCINE INTO MUSCLE, PERC APPROACH (09/02/17) MEASURE OF CARDIAC SAMPL & PRESSURE, L HEART, PERC APPROACH (03/10/18) OTHER GROUP THERAPY (04/14/13) PHYSICAL THERAPY NEC (06/12/14) Family History: States: Unknown Family Hx - Social History Hx Tobacco Use: Yes Hx Alcohol Use: Yes Hx Substance Use: No - Immunization History Hx Tetanus Toxoid Vaccination: No Hx Influenza Vaccination: No Hx Pneumococcal Vaccination: No Review Of Systems Constitutional: Negative for: Fever, Chills Gastrointestinal: Positive for: Nausea, Vomiting, Abdominal Pain. Negative for : Diarrhea, Hematochezia, Hematemesis Physical Exam - Physical Exam Appears: Non-toxic, No Acute Distress Skin: Warm, Dry Head: Normacephalic Eye(s): bilateral: Normal Inspection Oral Mucosa: Moist Neck: Trachea Midline, Supple Chest: Symmetrical Cardiovascular: Rhythm Regular Respiratory: No Rales, No Rhonchi, No Wheezing Gastrointestinal/Abdominal: Bowel Sounds (good), Soft, Tenderness (mild diffuse tenderness), Distention, No Guarding Extremity: Normal ROM, Pedal Edema (trace), No Calf Tenderness Pulses: Left Dorsalis Pedis: Normal, Right Dorsalis Pedis: Normal Neurological/Psych: Oriented x3 ED Course And Treatment - Laboratory Results Result Diagrams: 04/16/18 02:27 04/16/18 02:27 ECG: Interpreted By Me, Viewed By Me ECG Rhythm: Sinus Rhythm (103), L BBB O2 Sat by Pulse Oximetry: 97 (RA) Pulse Ox Interpretation: Normal Progress Note: Blood work and urine sent. Patient treated with IV Protonix and Zofran. Reevaluation Time: 05:34 Reassessment Condition: Improved Disposition Counseled Patient/Family Regarding: Studies Performed, Diagnosis, Need For Followup, Rx Given - Disposition Referrals: Rocio Hartley MD [Medical Doctor] - Disposition: HOME/ ROUTINE Disposition Time: 02:01 Condition: FAIR Additional Instructions: Please return if symptoms recur. Prescriptions: Ondansetron ODT [Zofran ODT] 1 odt PO BID PRN #6 odt PRN Reason: Nausea/Vomiting Pantoprazole Sodium [Protonix] 40 mg PO DAILY #15 ect Instructions: Gastritis (DC), Alcohol Abuse and Alcoholism (DC) Forms: [facility] (Hebrew) - Clinical Impression Clinical Impression: Abdominal pain, Alcoholic gastritis - Scribe Statement The provider has reviewed the documentation as recorded by the Scribe (Cinthya Medeiros) Provider Attestation: All medical record entries made by the Scribe were at my direction and personally dictated by me. I have reviewed the chart and agree that the record accurately reflects my personal performance of the history, physical exam, medical decision making, and the department course for this patient. I have also personally directed, reviewed, and agree with the discharge instructions and disposition.
[2018-04-16 02:35] LABS: BASO % 0.3 % (0.0-2.0); EOS % 0.1 % (0.0-4.0); HEMOGLOBIN 10.6 g/dL (11.0-16.0); LYMPH # 0.5 K/uL (1.0-4.3); LYMPH % 6.7 % (20.0-40.0); MEAN CELL VOLUME 87.6 fL (81.0-99.0); MEAN CORPUSCULAR HEMOGLOBIN 28.7 pg (27.0-31.0); MEAN CORPUSCULAR HGB CONC 32.8 g/dL (33.0-37.0); MEAN PLATELET VOLUME 8.9 fL (7.2-11.7); MONO # 0.2 K/uL (0.0-0.8); MONO % 2.2 % (0.0-10.0); NEUT # 6.4 K/uL (1.8-7.0); NEUT % 90.7 % (50.0-75.0); PLATELET COUNT 129 K/uL (130-400); RED CELL DISTRIBUTION WIDTH 14.3 % (11.5-14.5); WHITE BLOOD COUNT 7.1 K/uL (4.8-10.8)
[2018-04-16 02:38] LABS: INR 1.2; PROTHROMBIN TIME 12.6 SECONDS (9.7-12.2)
[2018-04-16 02:46] LABS: ALB/GLOB RATIO 0.8 (1.0-2.1); ALBUMIN 3.4 g/dL (3.5-5.0); ALT/SGPT 81 U/L (9-52); AST/SGOT 177 U/L (14-36); BLOOD UREA NITROGEN 7 mg/dL (7-17); CALCIUM 8.8 mg/dl (8.6-10.4); GFR AFRICAN-AMERICAN > 60; GFR NON-AFRICAN AMERICAN > 60; LIPASE 347 U/L (23-300)
[2018-04-16 02:47] LABS: SQUAMOUS EPITHIAL 2 /hpf (0-5); URINE BACTERIA RARE (<OCC); URINE BILIRUBIN NEGATIVE (NEGATIVE); URINE BLOOD NEGATIVE (NEGATIVE); URINE CLARITY Hazy (Clear); URINE COLOR Yellow (YELLOW); URINE GLUCOSE (UA) NORMAL (Normal); URINE LEUKOCYTE ESTERASE 2+ Leu/uL (Negative); URINE PROTEIN NEGATIVE (NEGATIVE)
[2018-04-16 03:35] LABS: LYMPHOCYTE 6 % (20-40); MONOCYTE 2 % (0-10); NEUTROPHIL 92 % (50-75); PLATELET ESTIMATE SLIGHTLY DECREASED (NORMAL); POLYCHROMIC SLIGHT; TOTAL CELLS COUNTED 100
[2018-04-16 03:36] LABS: TOXIC GRANULATION PRESENT
[2018-04-16] MEDS ORDERED: Iodixanol 320 MG/ML 100 ML BOTTLE IV ONE (03:56)
[2018-04-16 06:26] VITALS: BP 130/82; PULSE 84; RESP 20; TEMP 98.4; O2SAT 98
--- NOTE | 2018-04-16 07:26 | CT ---
Date of service: 04/16/2018 PROCEDURE: CT Abdomen and Pelvis with contrast HISTORY: abdominal pain, ascitis, etoh abuse COMPARISON: Comparison is made with 03/09/2018 TECHNIQUE: Contrast dose: 100 mL Visipaque 320. Technique: Axial and reformatted coronal and sagittal CT images of the abdomen and pelvis were obtained after IV contrast administration. Radiation dose: Total exam DLP = 883.5 mGy-cm. This CT exam was performed using one or more of the following dose reduction techniques: Automated exposure control, adjustment of the mA and/or kV according to patient size, and/or use of iterative reconstruction technique. FINDINGS: LOWER THORAX: Unremarkable. LIVER: Cirrhotic manifestation of the liver are noted. Mild hepatomegaly is again noted. No definite evidence of discrete mass in the liver. The portal vein is patent and opacified with contrast. GALLBLADDER AND BILE DUCTS: Status post cholecystectomy. No evidence of significant intrahepatic or extrahepatic biliary ductal dilatation. PANCREAS: No evidence of pancreatitis or dilated main pancreatic duct SPLEEN: Unremarkable. ADRENALS: Unremarkable. No mass. KIDNEYS AND URETERS: The kidneys enhance symmetrically. Mildly dilated collecting system of the kidneys likely due to distended urinary bladder. No evidence of ureter stone. VASCULATURE: IVC filter is again seen in place. No aortic aneurysm. BOWEL: Scattered colonic diverticulosis are again seen without evidence of diverticulitis. No obstruction. No gross mural thickening. APPENDIX: No evidence of appendicitis PERITONEUM: No evidence of significant ascites. No evidence of free air in the abdomen and pelvis. LYMPH NODES: Unremarkable. No enlarged lymph nodes. BLADDER: Unremarkable. REPRODUCTIVE: Unremarkable. BONES: No acute fracture. OTHER FINDINGS: None. IMPRESSION: No evidence of acute pathology in the abdomen and pelvis. Cirrhosis. No evidence of ascites or significant enlargement of the spleen. No significant interval change noted since the previous exam. Preliminary report was submitted by [facility].
--- NOTE | 2018-04-18 10:22 | CARD ---
APPROVED REPORT Date of service: 04/16/2018 EKG Measurement Heart [id number] <Conclusion> Sinus tachycardia Left bundle branch block Abnormal ECG
== END 2018-04-16 06:24 | disposition home or self-care (01) ==
LOC: C.ER 01:34
DX: K29.20 Alcoholic gastritis without bleeding (principal); E11.9 Type 2 diabetes mellitus without complications; I25.10 Atherosclerotic heart disease of native coronary artery without angina pectoris; I10 Essential (primary) hypertension; E78.00 Pure hypercholesterolemia, unspecified; Z87.891 Personal history of nicotine dependence
CPT/HCPCS: 74177; 80053; 81001; 82140; 83690; 85025; 85610; 85730; 93005; 96374; 96375; 99284; C9113; G0480; J2405; Q9967

== ENCOUNTER → 2018-04-26 15:50 | Emergency (ER) | payer MEDICARE, OTHER ==
[2018-04-26 15:58] VITALS: BP 131/86; PULSE 101; RESP 18; TEMP 98; O2SAT 96
[2018-04-26 16:02] VITALS: BMI 23.8
== END | disposition left against medical advice (07) ==
LOC: C.ER 15:50
DX: Z02.89 Encounter for other administrative examinations (principal); F19.10 Other psychoactive substance abuse, uncomplicated

== ENCOUNTER 2018-05-09 00:15 | Emergency (ER) | payer MEDICARE, OTHER ==
[2018-05-09 01:18] VITALS: BMI 23.8
[2018-05-09 01:24] VITALS: O2SAT 96
[2018-05-09] MEDS ORDERED: Sodium Chloride 0.9% 1,000 ML IV ONE (01:25)
--- NOTE | 2018-05-09 01:25 | C.PDOC ---
History Of Present Illness Patient states she developed abdominal pain, right upper quadrant after drinking tonight. Some nausea and 1 episode of emesis. No f/c. Dull burning, cramping discomfort Time Seen by Provider: 05/09/18 01:25 Chief Complaint (Nursing): Abdominal Pain History/Exam Limitations: no limitations Onset/Duration Of Symptoms: Hrs Current Symptoms Are (Timing): Still Present Context: Other (alcohol) Severity: Moderate Pain Scale Rating Of: 4 Location Of Pain/Discomfort: RUQ Radiation Of Pain To:: None Quality Of Discomfort: Dull, Aching, Cramping, Burning Associated Symptoms: Nausea. denies: Fever, Chills, Vomiting Alleviating Factors: None Last Bowel Movement: Yesterday Recent travel outside of the [place]: No Additional History Per: Patient Past Medical History Reviewed: Historical Data, Nursing Documentation, Vital Signs Vital Signs: Last Vital Signs Temp 98 F 05/09/18 04:33 Pulse 93 H 05/09/18 04:33 Resp 20 05/09/18 04:33 BP 117/70 05/09/18 04:33 Pulse Ox 96 05/09/18 04:33 - Medical History PMH: Anemia, Anxiety, Arthritis, Asthma, Bipolar Disorder, Bronchitis, CAD, COPD , Depression, Diabetes, Gastritis, GERD, HTN, Hypercholesterolemia, Hypothyroidism, Osteoporosis, Pneumonia, Pulmonary Embolism Denies: Hepatitis, HIV, Chronic Kidney Disease, Seizures, Sexually Transmitted Disease Surgical History: CABG, Cholecystectomy, Coronary Stent - [facility] Procedures ALCOHOL DETOXIFICATION (03/15/15) EXCISION OF STOMACH, ENDO, DIAGN (03/10/18) FLUOROSCOPY OF MULT COR ART USING L OSM CONTRAST (03/10/18) GROUP PSYCHOTHERAPY (02/03/18) INDIV PSYCHOTHERAPY FOR SUBSTANCE ABUSE, COGNITIV BEHAVIORAL (02/03/18) INDIVID PSYCHOTHERAP NEC (04/14/13) INDIVIDUAL PSYCHOTHERAPY, COGNITIVE-BEHAVIORAL (02/03/18) INTRODUCTION OF ANTI-INFLAM INTO RESP TRACT, VIA OPENING (01/25/17) INTRODUCTION OF SERUM/TOX/VACCINE INTO MUSCLE, PERC APPROACH (09/02/17) MEASURE OF CARDIAC SAMPL & PRESSURE, L HEART, PERC APPROACH (03/10/18) OTHER GROUP THERAPY (04/14/13) PHYSICAL THERAPY NEC (06/12/14) Family History: States: No Known Family Hx - Social History Hx Tobacco Use: Yes Hx Alcohol Use: Yes Hx Substance Use: No - Immunization History Hx Tetanus Toxoid Vaccination: No Hx Influenza Vaccination: No Hx Pneumococcal Vaccination: No Review Of Systems Constitutional: Negative for: Fever, Chills ENT: Negative for: Throat Pain Cardiovascular: Negative for: Chest Pain Respiratory: Negative for: Shortness of Breath Gastrointestinal: Positive for: Nausea, Vomiting, Abdominal Pain Genitourinary: Negative for: Dysuria Musculoskeletal: Negative for: Back Pain Skin: Negative for: Rash Neurological: Negative for: Weakness Psych: Negative for: Anxiety Physical Exam - Physical Exam Appears: Non-toxic, No Acute Distress Skin: Warm, Dry Head: Normacephalic Eye(s): bilateral: Normal Inspection Oral Mucosa: Moist Neck: Supple Chest: Symmetrical Cardiovascular: Rhythm Irregular Respiratory: No Rales, No Rhonchi, No Wheezing Gastrointestinal/Abdominal: Soft, Tenderness (ruq), No Distention, No Guarding, No Rebound Back: No CVA Tenderness Extremity: Normal ROM Extremity: Bilateral: Atraumatic Neurological/Psych: Oriented x3 Gait: Steady ED Course And Treatment - Laboratory Results Result Diagrams: 05/09/18 02:09 05/09/18 02:09 O2 Sat by Pulse Oximetry: 96 Pulse Ox Interpretation: Normal Reevaluation Time: 05:57 Reassessment Condition: Improved Disposition Counseled Patient/Family Regarding: Studies Performed, Diagnosis, Need For Followup, Rx Given - Disposition Referrals: [facility] [Outside] [facility] [Outside] Disposition: HOME/ ROUTINE Disposition Time: 01:25 Condition: FAIR Prescriptions: Pantoprazole Sodium [Protonix] 40 mg PO DAILY #15 ect Instructions: Alcohol Abuse and Alcoholism (DC), Acute Abdomen (Belly Pain), Adult (DC) Forms: [employer] (Sami) Print Language: KOREAN - Clinical Impression Clinical Impression: Alcohol abuse, Alcoholic gastritis, Abdominal pain
[2018-05-09 02:12] LABS: BASO % 0.6 % (0.0-2.0); EOS % 0.6 % (0.0-4.0); HEMOGLOBIN 8.7 g/dL (11.0-16.0); LYMPH # 1.9 K/uL (1.0-4.3); MEAN CELL VOLUME 90.3 fL (81.0-99.0); MEAN CORPUSCULAR HEMOGLOBIN 30.4 pg (27.0-31.0); MEAN CORPUSCULAR HGB CONC 33.6 g/dL (33.0-37.0); MEAN PLATELET VOLUME 8.8 fL (7.2-11.7); MONO # 0.8 K/uL (0.0-0.8); MONO % 10.4 % (0.0-10.0); NEUT # 4.7 K/uL (1.8-7.0); NEUT % 63.4 % (50.0-75.0); NRBC % 0.5 % (0.0-2.0); RBC 2.87 Mil/uL (3.80-5.20); RED CELL DISTRIBUTION WIDTH 17.4 % (11.5-14.5); WHITE BLOOD COUNT 7.4 K/uL (4.8-10.8)
[2018-05-09 02:19] LABS: INR 1.3; PROTHROMBIN TIME 14.7 SECONDS (9.7-12.2)
[2018-05-09 03:04] LABS: ALB/GLOB RATIO 0.9 (1.0-2.1); ALBUMIN 3.4 g/dL (3.5-5.0); ALT/SGPT 115 U/L (9-52); AST/SGOT 178 U/L (14-36); BLOOD UREA NITROGEN 8 mg/dL (7-17); CALCIUM 8.7 mg/dl (8.6-10.4); GFR AFRICAN-AMERICAN > 60; GFR NON-AFRICAN AMERICAN > 60; LIPASE 492 U/L (23-300)
[2018-05-09] MEDS ORDERED: Iodixanol 320 MG/ML 100 ML BOTTLE IV ONE (03:37)
[2018-05-09 06:11] VITALS: BP 154/81; PULSE 92; RESP 14; TEMP 98.7
--- NOTE | 2018-05-09 10:16 | CT ---
Date of service: 05/09/2018 PROCEDURE: CT Abdomen and Pelvis without intravenous contrast HISTORY: Abdominal pain. Elevated liver enzymes. COMPARISON: CT abdomen and pelvis dated 04/16/2018 TECHNIQUE: Multiple contiguous axial images were performed through the abdomen and pelvis with the use of intravenous contrast. Subsequently, sagittal and coronal reformatted images were obtained. Radiation dose: Total exam DLP = 740 mGy-cm. This CT exam was performed using one or more of the following dose reduction techniques: Automated exposure control, adjustment of the mA and/or kV according to patient size, and/or use of iterative reconstruction technique. FINDINGS: LOWER THORAX: Focal nodular consolidation within the medial aspect of the right middle lobe. Bibasilar atelectasis. 2 millimeter nodule within the left lower lobe. LIVER: Nodular contour of the liver suggestive for cirrhosis. Possible fatty infiltration of the liver. GALLBLADDER AND BILE DUCTS: Cholecystectomy. PANCREAS: Unremarkable. No gross lesion or ductal dilatation. SPLEEN: Unremarkable. ADRENALS: Unremarkable. No mass. KIDNEYS AND URETERS: Unremarkable. No hydronephrosis. No solid mass. VASCULATURE: Unremarkable. No aortic aneurysm. BOWEL: Diverticulosis. APPENDIX: No findings to suggest acute appendicitis. PERITONEUM: Unremarkable. No free fluid. No free air. LYMPH NODES: Unremarkable. No enlarged lymph nodes. BLADDER: Unremarkable. REPRODUCTIVE: Unremarkable. BONES: Chronic right-sided rib fractures. Degenerative changes of the osseous structures. Infrarenal IVC filter is present. OTHER FINDINGS: None. IMPRESSION: Nodular contour of the liver suggestive for cirrhosis. Possible fatty infiltration of the liver. Additional findings as above. These findings were preliminarily reported at 5:01 a.m. on 05/09/[address] Gian Reyna from [employer].
== END 2018-05-09 06:22 | disposition home or self-care (01) ==
LOC: C.ER 00:15
DX: K29.20 Alcoholic gastritis without bleeding (principal); F10.10 Alcohol abuse, uncomplicated; Y90.0 Blood alcohol level of less than 20 mg/100 ml; R10.9 Unspecified abdominal pain; I25.10 Atherosclerotic heart disease of native coronary artery without angina pectoris; I10 Essential (primary) hypertension; E78.00 Pure hypercholesterolemia, unspecified; E11.9 Type 2 diabetes mellitus without complications; K21.9 Gastro-esophageal reflux disease without esophagitis; Z87.891 Personal history of nicotine dependence
CPT/HCPCS: 74177; 80053; 83690; 85025; 85610; 85730; 96374; 96375; 99285; C9113; G0480; J2405; J7030; Q9967

== ENCOUNTER 2018-05-20 18:14 | Emergency (ER) | payer MEDICARE, OTHER ==
[2018-05-20 18:15] VITALS: BMI 23.8
[2018-05-20 18:30] VITALS: BP 127/73; PULSE 92; RESP 92; TEMP 98.2; O2SAT 95
--- NOTE | 2018-05-20 19:17 | C.PDOC ---
History Of Present Illness The patient is brought to the ED by ambulance for evaluation of alcohol intoxication after patient was found sleeping in front of someone's house prior to arrival. Patient admits to drinking at least 12 beers today. She denies chest pain, trauma/injuries, or suicidal/homicidal. Time Seen by Provider: 05/20/18 19:17 Chief Complaint (Nursing): Substance Abuse History Per: Patient, EMS History/Exam Limitations: no limitations Onset/Duration Of Symptoms: Hrs Current Symptoms Are (Timing): Still Present Suicide/Self Injury Attempted (Context): None Modifying Factor(s): Alcohol Associated Symptoms: denies: Suicidal Thoughts, Suicidal Plan Involuntary Hold By: None Recent travel outside of the [place]: No Additional History Per: Patient, EMS Past Medical History Reviewed: Historical Data, Nursing Documentation, Vital Signs Vital Signs: Last Vital Signs Temp 98.2 F 05/20/18 18:23 Pulse 92 H 05/20/18 18:23 Resp 92 H 05/20/18 18:23 BP 127/73 05/20/18 18:23 Pulse Ox 95 05/20/18 20:28 - Medical History PMH: Anemia, Anxiety, Arthritis, Asthma, Bipolar Disorder, Bronchitis, CAD, COPD , Depression, Diabetes, Gastritis, GERD, HTN, Hypercholesterolemia, Hypothyroidism, Osteoporosis, Peripheral Edema, Pneumonia, Pulmonary Embolism Denies: Hepatitis, HIV, Chronic Kidney Disease, Seizures, Sexually Transmitted Disease Surgical History: CABG, Cholecystectomy, Coronary Stent - [facility] Procedures ALCOHOL DETOXIFICATION (03/15/15) EXCISION OF STOMACH, ENDO, DIAGN (03/10/18) FLUOROSCOPY OF MULT COR ART USING L OSM CONTRAST (03/10/18) GROUP PSYCHOTHERAPY (02/03/18) INDIV PSYCHOTHERAPY FOR SUBSTANCE ABUSE, COGNITIV BEHAVIORAL (02/03/18) INDIVID PSYCHOTHERAP NEC (04/14/13) INDIVIDUAL PSYCHOTHERAPY, COGNITIVE-BEHAVIORAL (02/03/18) INTRODUCTION OF ANTI-INFLAM INTO RESP TRACT, VIA OPENING (01/25/17) INTRODUCTION OF SERUM/TOX/VACCINE INTO MUSCLE, PERC APPROACH (09/02/17) MEASURE OF CARDIAC SAMPL & PRESSURE, L HEART, PERC APPROACH (03/10/18) OTHER GROUP THERAPY (04/14/13) PHYSICAL THERAPY NEC (06/12/14) Family History: States: Unknown Family Hx - Social History Hx Tobacco Use: Yes Hx Alcohol Use: Yes Hx Substance Use: No - Immunization History Hx Tetanus Toxoid Vaccination: No Hx Influenza Vaccination: No Hx Pneumococcal Vaccination: No Review Of Systems Constitutional: Negative for: Fever, Chills Cardiovascular: Negative for: Chest Pain, Palpitations Respiratory: Negative for: Cough, Shortness of Breath Gastrointestinal: Negative for: Nausea, Vomiting, Abdominal Pain Musculoskeletal: Negative for: Back Pain Skin: Negative for: Rash, Lesions, Jaundice, Bruising Psych: Positive for: Other (alcohol intoxication ). Negative for: Suicidal ideation Physical Exam - Physical Exam Appears: Non-toxic, No Acute Distress Skin: Warm, Dry Head: Normacephalic Eye(s): bilateral: Normal Inspection Oral Mucosa: Moist, Other (alcohol on breath ) Neck: Supple Chest: Symmetrical, No Deformity, No Tenderness Cardiovascular: Rhythm Regular, No Murmur Respiratory: No Accessory Muscle Use Extremity: Normal ROM, Capillary Refill (less than 2 seconds ) Neurological/Psych: Other (arousable to touch and verbal stimuli ) ED Course And Treatment - Laboratory Results Result Diagrams: 05/20/18 19:36 05/20/18 19:36 O2 Sat by Pulse Oximetry: 95 (on RA ) Pulse Ox Interpretation: Normal Progress Note: bloodwork and urinalysis ordered. Went to re-examine the patient but she had eloped Disposition Counseled Patient/Family Regarding: Studies Performed, Diagnosis - Disposition Disposition: ELOPEMENT - ER ONLY Disposition Time: 19:17 Condition: FAIR Instructions: Alcohol Abuse and Alcoholism (DC) Forms: [facility] (Taiwanese) - Clinical Impression Clinical Impression: Alcohol abuse - Scribe Statement The provider has reviewed the documentation as recorded by the Scribe (Myrna Can) Provider Attestation: All medical record entries made by the Scribe were at my direction and personally dictated by me. I have reviewed the chart and agree that the record accurately reflects my personal performance of the history, physical exam, medical decision making, and the department course for this patient. I have also personally directed, reviewed, and agree with the discharge instructions and disposition.
[2018-05-20 19:39] LABS: BASO % 0.3 % (0.0-2.0); EOS # 0.1 K/uL (0.0-0.7); HEMOGLOBIN 10.7 g/dL (11.0-16.0); LYMPH % 40.5 % (20.0-40.0); MEAN CELL VOLUME 91.8 fL (81.0-99.0); MEAN CORPUSCULAR HEMOGLOBIN 30.7 pg (27.0-31.0); MEAN CORPUSCULAR HGB CONC 33.5 g/dL (33.0-37.0); MEAN PLATELET VOLUME 7.5 fL (7.2-11.7); MONO # 0.5 K/uL (0.0-0.8); MONO % 6.8 % (0.0-10.0); NEUT # 3.8 K/uL (1.8-7.0); NEUT % 51.4 % (50.0-75.0); NRBC % 0.1 % (0.0-2.0); RBC 3.49 Mil/uL (3.80-5.20); RED CELL DISTRIBUTION WIDTH 22.7 % (11.5-14.5); WHITE BLOOD COUNT 7.3 K/uL (4.8-10.8)
[2018-05-20 19:58] LABS: ALBUMIN 3.7 g/dL (3.5-5.0); ALT/SGPT 82 U/L (9-52); AST/SGOT 150 U/L (14-36); BLOOD UREA NITROGEN 12 mg/dL (7-17); CALCIUM 8.5 mg/dl (8.6-10.4); GFR NON-AFRICAN AMERICAN > 60
--- NOTE | 2018-05-22 08:54 | CARD ---
APPROVED REPORT Date of service: 05/20/2018 EKG Measurement Heart [id number] <Conclusion> Normal sinus rhythm Left bundle branch block Abnormal ECG
== END 2018-05-20 19:17 | disposition left against medical advice (07) ==
LOC: C.ER 18:14
DX: F10.129 Alcohol abuse with intoxication, unspecified (principal); Y90.7 Blood alcohol level of 200-239 mg/100 ml
CPT/HCPCS: 80053; 82948; 85025; 93005; 99282; G0480

== ENCOUNTER 2018-05-23 01:56 | Emergency (ER) | payer MEDICARE, OTHER ==
[2018-05-23 01:56] VITALS: BMI 23.8
[2018-05-23 02:09] VITALS: RESP 14
--- NOTE | 2018-05-23 03:08 | C.PDOC ---
History Of Present Illness 67 year old female is brought to the ED by EMS for alcohol intoxication. Patient admits to drinking a lot of alcohol last night. Patient denies SI/HI, hallucinations, other medical complaints. Time Seen by Provider: 05/23/18 02:52 Chief Complaint (Nursing): Substance Abuse History Per: Patient, EMS History/Exam Limitations: intoxication Onset/Duration Of Symptoms: Hrs Current Symptoms Are (Timing): Still Present Suicide/Self Injury Attempted (Context): None Modifying Factor(s): Alcohol Associated Symptoms: denies: Depression, Suicidal Thoughts, Suicidal Plan Recent travel outside of the [place]: No Additional History Per: Patient, EMS Past Medical History Reviewed: Historical Data, Nursing Documentation, Vital Signs Vital Signs: Last Vital Signs Temp 98.2 F 05/23/18 02:05 Pulse 88 05/23/18 02:05 Resp 14 05/23/18 02:05 BP 110/71 05/23/18 02:05 Pulse Ox 92 L 05/23/18 04:12 - Medical History PMH: Anemia, Anxiety, Arthritis, Asthma, Bipolar Disorder, Bronchitis, CAD, COPD , Depression, Diabetes, Gastritis, GERD, HTN, Hypercholesterolemia, Hypothyroidism, Osteoporosis, Peripheral Edema, Pneumonia, Pulmonary Embolism Denies: Hepatitis, HIV, Chronic Kidney Disease, Seizures, Sexually Transmitted Disease Surgical History: CABG, Cholecystectomy, Coronary Stent - [facility] Procedures ALCOHOL DETOXIFICATION (03/15/15) EXCISION OF STOMACH, ENDO, DIAGN (03/10/18) FLUOROSCOPY OF MULT COR ART USING L OSM CONTRAST (03/10/18) GROUP PSYCHOTHERAPY (02/03/18) INDIV PSYCHOTHERAPY FOR SUBSTANCE ABUSE, COGNITIV BEHAVIORAL (02/03/18) INDIVID PSYCHOTHERAP NEC (04/14/13) INDIVIDUAL PSYCHOTHERAPY, COGNITIVE-BEHAVIORAL (02/03/18) INTRODUCTION OF ANTI-INFLAM INTO RESP TRACT, VIA OPENING (01/25/17) INTRODUCTION OF SERUM/TOX/VACCINE INTO MUSCLE, PERC APPROACH (09/02/17) MEASURE OF CARDIAC SAMPL & PRESSURE, L HEART, PERC APPROACH (03/10/18) OTHER GROUP THERAPY (04/14/13) PHYSICAL THERAPY NEC (06/12/14) Family History: States: Unknown Family Hx - Social History Hx Tobacco Use: Yes Hx Alcohol Use: Yes Hx Substance Use: No - Immunization History Hx Tetanus Toxoid Vaccination: No Hx Influenza Vaccination: No Hx Pneumococcal Vaccination: No Review Of Systems Constitutional: Negative for: Fever, Chills Cardiovascular: Negative for: Chest Pain Respiratory: Negative for: Shortness of Breath Gastrointestinal: Negative for: Nausea, Vomiting Psych: Negative for: Depression, Suicidal ideation, Withdrawal Physical Exam - Physical Exam Appears: Non-toxic, No Acute Distress, Other (drowsy but arousable to verbal and tactile stimuli) Skin: Normal Color, Warm, Dry Head: Atraumatic, Normacephalic, No Laceration Eye(s): bilateral: Normal Inspection Neck: Normal ROM, Supple Chest: Symmetrical Cardiovascular: Rhythm Regular Respiratory: Normal Breath Sounds, No Accessory Muscle Use, No Rales, No Rhonchi , Wheezing (exp) Gastrointestinal/Abdominal: Soft, No Tenderness, No Guarding Extremity: No Tenderness, No Swelling Extremity: Bilateral: Atraumatic, Normal Color And Temperature, Normal ROM Neurological/Psych: Oriented x3, Normal Speech Gait: Steady ED Course And Treatment O2 Sat by Pulse Oximetry: 92 Pulse Ox Interpretation: Abnormal Progress Note: accucheck 90mg/dl. 5am- pt states nauseous and feels congested- Pt is still with mild wheezes. Albuterol neb asnd zofran ODT ordered. At this time the patient is ambulatory with steady gait, and is clinically sober. Stable for D/C home. Disposition - Disposition Disposition: HOME/ ROUTINE Disposition Time: 05:36 Condition: STABLE Additional Instructions: Strongly recommend detox Follow up in clinic Return to ER if any concerns Instructions: Alcohol Abuse and Alcoholism (DC) Forms: [employer] (Italian) - Clinical Impression Clinical Impression: Alcohol abuse - PA / MEDICAL SERVICES ASSISTANT / Resident Statement MD/DO has reviewed & agrees with the documentation as recorded. - Scribe Statement The provider has reviewed the documentation as recorded by the Scribe Moe Wolff All medical record entries made by the Scribe were at my direction and personally dictated by me. I have reviewed the chart and agree that the record accurately reflects my personal performance of the history, physical exam, medical decision making, and the department course for this patient. I have also personally directed, reviewed, and agree with the discharge instructions and disposition.
[2018-05-23] MEDS ORDERED: Albuterol-Ipratrop 3 mg / 0.5 (3 ml) UD ONE (05:25)
[2018-05-23] MEDS ORDERED: Albuterol 0.083% Inhal Sol (2.5 mg/3 mL) UD INH STA (05:29)
[2018-05-23 06:08] VITALS: BP 130/80; PULSE 80; TEMP 97.8; O2SAT 96
== END 2018-05-23 06:08 | disposition home or self-care (01) ==
LOC: C.ER 01:56
DX: F10.129 Alcohol abuse with intoxication, unspecified (principal); E11.9 Type 2 diabetes mellitus without complications; I10 Essential (primary) hypertension; I25.10 Atherosclerotic heart disease of native coronary artery without angina pectoris; E78.00 Pure hypercholesterolemia, unspecified; E03.9 Hypothyroidism, unspecified; J44.9 Chronic obstructive pulmonary disease, unspecified; Z72.0 Tobacco use

== ENCOUNTER 2018-05-27 19:23 | Inpatient (IN) | payer MEDICARE, OTHER ==
[2018-05-27 19:23] VITALS: BMI 23.8
[2018-05-27] MEDS ORDERED: Albuterol 0.083% Inhal Sol (2.5 mg/3 mL) UD IH STA ×2 (19:40→21:09)
[2018-05-27 19:59] LABS: BASO # 0.1 K/uL (0.0-0.2); BASO % 1.1 % (0.0-2.0); EOS % 0.4 % (0.0-4.0); HEMOGLOBIN 11.4 g/dL (11.0-16.0); LYMPH % 34.2 % (20.0-40.0); MEAN CELL VOLUME 90.6 fL (81.0-99.0); MEAN CORPUSCULAR HEMOGLOBIN 29.9 pg (27.0-31.0); MEAN CORPUSCULAR HGB CONC 33.1 g/dL (33.0-37.0); MEAN PLATELET VOLUME 9.2 fL (7.2-11.7); MONO # 0.4 K/uL (0.0-0.8); MONO % 4.4 % (0.0-10.0); NEUT # 5.2 K/uL (1.8-7.0); NEUT % 59.9 % (50.0-75.0); NRBC % 0.1 % (0.0-2.0); RBC 3.8 Mil/uL (3.80-5.20); RED CELL DISTRIBUTION WIDTH 22.1 % (11.5-14.5); WHITE BLOOD COUNT 8.7 K/uL (4.8-10.8)
[2018-05-27 20:06] LABS: INR 1.2
[2018-05-27] MEDS ORDERED: Albuterol 0.083% Inhal Sol (2.5 mg/3 mL) UD ONE ×2 (20:06→21:17)
[2018-05-27 21:03] LABS: B-TYPE NATRIURETIC PEPTIDE 223 pg/mL (0-900); CK-MB 2.58 ng/mL (0.0-3.38)
[2018-05-27 21:07] LABS: ALB/GLOB RATIO 0.9 (1.0-2.1); ALBUMIN 3.4 g/dL (3.5-5.0); AST/SGOT 266 U/L (14-36); BLOOD UREA NITROGEN 7 mg/dL (7-17); CALCIUM 7.9 mg/dl (8.6-10.4); GFR NON-AFRICAN AMERICAN > 60
[2018-05-27 21:08] LABS: ALT/SGPT 120 U/L (9-52)
--- NOTE | 2018-05-27 21:24 | C.PDOC ---
History Of Present Illness 67 year old female presents to the ER with complaint of left chest pain that she has "every day" but has been stronger since yesterday. Patient states the pain is constant and nonradiating, associated with SOB and wheezing. She also has a Hx of asthma, and admits to ETOH use today. Patient denies nausea, vomiting, diarrhea, fever, chills, palpitations. Time Seen by Provider: 05/27/18 19:29 Chief Complaint (Nursing): Chest Pain History Per: Patient History/Exam Limitations: no limitations Onset/Duration Of Symptoms: Days Current Symptoms Are (Timing): Still Present Severity: Moderate Quality: "Pain" Associated Symptoms: denies: Nausea, Other (Vomiting, Fever, Chills) Modifying Factors: None Exacerbating Factors: None Alleviating Factors: None Recent travel outside of the [place]: No Past Medical History Reviewed: Historical Data, Nursing Documentation, Vital Signs Vital Signs: Last Vital Signs Temp 99.1 F 06/01/18 08:30 Pulse 94 H 06/01/18 09:00 Resp 15 06/01/18 09:00 BP 138/63 06/01/18 11:02 Pulse Ox 98 06/01/18 09:00 - Medical History PMH: Anemia, Anxiety, Arthritis, Asthma, Bipolar Disorder, Bronchitis, CAD, COPD , Depression, Diabetes, Gastritis, GERD, HTN, Hypercholesterolemia, Hypothyroidism, Osteoporosis, Peripheral Edema, Pneumonia, Pulmonary Embolism Surgical History: CABG, Cholecystectomy, Coronary Stent - [facility] Procedures ALCOHOL DETOXIFICATION (03/15/15) EXCISION OF STOMACH, ENDO, DIAGN (03/10/18) FLUOROSCOPY OF MULT COR ART USING L OSM CONTRAST (03/10/18) GROUP PSYCHOTHERAPY (02/03/18) INDIV PSYCHOTHERAPY FOR SUBSTANCE ABUSE, COGNITIV BEHAVIORAL (02/03/18) INDIVID PSYCHOTHERAP NEC (04/14/13) INDIVIDUAL PSYCHOTHERAPY, COGNITIVE-BEHAVIORAL (02/03/18) INTRODUCTION OF ANTI-INFLAM INTO RESP TRACT, VIA OPENING (01/25/17) INTRODUCTION OF SERUM/TOX/VACCINE INTO MUSCLE, PERC APPROACH (09/02/17) MEASURE OF CARDIAC SAMPL & PRESSURE, L HEART, PERC APPROACH (03/10/18) OTHER GROUP THERAPY (04/14/13) PHYSICAL THERAPY NEC (06/12/14) Family History: States: No Known Family Hx - Social History Hx Tobacco Use: Yes Hx Alcohol Use: Yes Hx Substance Use: No - Immunization History Hx Tetanus Toxoid Vaccination: No Hx Influenza Vaccination: No Hx Pneumococcal Vaccination: No Review Of Systems Constitutional: Negative for: Fever, Chills Cardiovascular: Positive for: Chest Pain. Negative for: Palpitations Respiratory: Positive for: Shortness of Breath, Wheezing. Negative for: Cough Gastrointestinal: Negative for: Nausea, Vomiting, Abdominal Pain, Diarrhea Genitourinary: Negative for: Dysuria, Hematuria Skin: Negative for: Rash Neurological: Negative for: Headache, Dizziness Psych: Positive for: Other (alcohol abuse ) Physical Exam - Physical Exam Appears: Non-toxic, Other (Intoxicated, Speaking in full sentences, in mild discomfort) Skin: Normal Color, Warm, Dry, No Rash Head: Normacephalic Eye(s): bilateral: Normal Inspection Oral Mucosa: Moist Neck: Supple Cardiovascular: Rhythm Regular (Tachycardic), No Murmur Respiratory: No Accessory Muscle Use, No Rales, No Rhonchi, Wheezing (Mild expiratory bilaterally) Gastrointestinal/Abdominal: Normal Exam, Bowel Sounds, Soft, No Tenderness Back: No CVA Tenderness Extremity: Pedal Edema (trace pitting edema B/L LEs), No Calf Tenderness, Capillary Refill (< 2sec all digits) Pulses: Left Dorsalis Pedis: Normal, Right Dorsalis Pedis: Normal Neurological/Psych: Oriented x3 (mildly intoxicated) ED Course And Treatment - Laboratory Results Result Diagrams: 06/01/18 11:25 06/01/18 11:25 ECG: Interpreted By Me, Viewed By Me ECG Rhythm: Sinus Tachycardia ECG Interpretation: Abnormal Interpretation Of ECG: Left axis deviation, LBBB, no acute ST changes. LBBB seen on prior EKG done on 05/20/18 Rate From EC (bpm) O2 Sat by Pulse Oximetry: 97 (Room air) Pulse Ox Interpretation: Normal - Radiology CXR: Interpreted by Me, Viewed By Me CXR Interpretation: Yes: No Acute Disease. No: Infiltrates Progress Note: Blood work, CXR, EKG, and urinalysis ordered and reviewed. Patient given PO ASA, IV solumedrol, albuterol nebs. 21:20- Patient c/o some chest pain, IV morphine given. - Physician Consult Information Physician Contacted: Anthony Can Outcome Of Conversation: Discussed patient with Dr. Brian Can, agrees with admission for chest pain, r/o ACS, asthma exacerbation, ETOH abuse, elevated LFTs. Disposition - Disposition Disposition: HOSPITALIZED Disposition Time: 21:11 Condition: STABLE - Clinical Impression Clinical Impression: Elevated LFTs, Alcohol abuse, Chest pain, Asthma - Scribe Statement The provider has reviewed the documentation as recorded by the Scribe Thomas Pool All medical record entries made by the Scribe were at my direction and personally dictated by me. I have reviewed the chart and agree that the record accurately reflects my personal performance of the history, physical exam, medical decision making, and the department course for this patient. I have also personally directed, reviewed, and agree with the discharge instructions and disposition. Decision To Admit - Pt Status Changed To: Hospital Disposition Of: Observation - . Bed Request Type: Telemetry Admitting Physician: Anthony Can Patient Diagnosis: Chest pain, Alcohol abuse, Chest pain, Elevated LFTs, Asthma
[2018-05-27] MEDS ORDERED: Enoxaparin 150 mg Syringe SC STA (21:55)
[2018-05-27] MEDS ORDERED: Enoxaparin 40 mg Syringe ONE (22:30)
[2018-05-27] MEDS ORDERED: Moxifloxacin IV 400mg/250ml NS 400 MG/250 ML BAG IVPB ONE (22:30)
[2018-05-27] MEDS: Moxifloxacin IV 400mg/250ml NS 400 MG/250 ML BAG IVPB SCH (22:50)
[2018-05-28] MEDS ORDERED: Albuterol-Ipratrop 3 mg / 0.5 (3 ml) UD INH SCH (04:00)
[2018-05-28 08:58] LABS: CK-MB 2.57 ng/mL (0.0-3.38); TROPONIN I 0.027 ng/mL (0.00-0.120)
[2018-05-28] MEDS: Pantoprazole 40 mg EC Tab PO SCH (09:43)
[2018-05-28] MEDS ORDERED: Enoxaparin 40 mg Syringe SC SCH (10:00)
--- NOTE | 2018-05-28 10:02 | RAD ---
Date of service: 05/27/2018 PROCEDURE: CHEST RADIOGRAPH, 1 VIEW HISTORY: CP COMPARISON: Comparison chest x-ray dated 03/09/2018 FINDINGS: LUNGS: Clear. PLEURA: No pneumothorax or pleural fluid seen. CARDIOVASCULAR: Normal. OSSEOUS STRUCTURES: No significant abnormalities. VISUALIZED UPPER ABDOMEN: Normal. OTHER FINDINGS: None. IMPRESSION: No active disease.
[2018-05-28] MEDS ORDERED: Potassium Chloride 20 mEq ER Tab PO ONE (11:00)
[2018-05-28] MEDS: Albuterol-Ipratrop 3 mg / 0.5 (3 ml) UD INH SCH ×2 (13:18→20:00)
[2018-05-28 14:22] LABS: CK-MB 2.57 ng/mL (0.0-3.38)
[2018-05-28 14:24] LABS: TROPONIN I 0.027 ng/mL (0.00-0.120)
[2018-05-28] MEDS ORDERED: Multivitamin (MVI) 10 ML, Thiamine 100 MG, Folic Acid 1 MG in Sodium Chloride 0.9% 1,00... IV ONE (16:00)
--- NOTE | 2018-05-28 19:07 | CP.PCM.HP ---
History of Present Illness - History of Present Illness History of Present Illness: 67-year-old female with PMH of anemia, anxiety, arthritis, asthma, thyroid disorder, CAD, COPD, depression, DM, GERD, HTN, HLD, hypothyroidism, osteoporosis, peripheral edema, pneumonia, PE comes to ED with complaints of worsening left chest pain since yesterday. She admits of having chest pain every day. Pain is constant, nonradiating, associated with S OB and wheezing. Admits alcohol use today. Denies fever, chills, nausea, vomiting, palpitations , abdominal pain. Present on Admission - Present on Admission Any Indicators Present on Admission: No Past Patient History - Infectious Disease Hx of Infectious Diseases: None - Past Medical History & Family History Past Medical History?: Yes - Past Social History Smoking Status: Light Smoker < 10 Cigarettes Daily - CARDIAC Hx Hypercholesterolemia: Yes Hx Hypertension: Yes Hx Peripheral Edema: Yes - PULMONARY Hx Asthma: Yes Hx Bronchitis: Yes Hx Chronic Obstructive Pulmonary Disease (COPD): Yes Hx Pneumonia: Yes Hx Pulmonary Embolism: Yes - NEUROLOGICAL Hx Seizures: No - HEENT Hx HEENT Problems: No - RENAL Hx Chronic Kidney Disease: No - ENDOCRINE/METABOLIC Hx Hypothyroidism: Yes - HEMATOLOGICAL/ONCOLOGICAL Hx Anemia: Yes Hx Human Immunodeficiency Virus (HIV): No - INTEGUMENTARY Hx Dermatological Problems: No - MUSCULOSKELETAL/RHEUMATOLOGICAL Hx Arthritis: Yes Hx Osteoporosis: Yes - GASTROINTESTINAL Hx Gastritis: Yes - GENITOURINARY/GYNECOLOGICAL Hx Sexually Transmitted Disorders: No - PSYCHIATRIC Hx Anxiety: Yes Hx Bipolar Disorder: Yes Hx Depression: Yes Hx Substance Use: No - SURGICAL HISTORY Hx Cholecystectomy: Yes Hx Coronary Artery Bypass Graft: Yes Hx Coronary Stent: Yes - ANESTHESIA Hx Anesthesia: Yes Hx Anesthesia Reactions: No Hx Malignant Hyperthermia: No Meds Allergies/Adverse Reactions: Allergies Allergy/AdvReac Type Severity Reaction Status Date / Time ceftriaxone Allergy Intermediate RASH Verified 05/27/18 19:27 moxifloxacin HCl Allergy Intermediate RASH Verified 05/27/18 19:27 [From Avelox] Physical Exam - Constitutional Appears: Well - Head Exam Head Exam: ATRAUMATIC, NORMAL INSPECTION, NORMOCEPHALIC - Eye Exam Eye Exam: EOMI, Normal appearance, PERRL Pupil Exam: NORMAL ACCOMODATION, PERRL - ENT Exam ENT Exam: Mucous Membranes Moist, Normal Exam - Neck Exam Neck exam: Positive for: Normal Inspection - Respiratory Exam Respiratory Exam: Decreased Breath Sounds - Cardiovascular Exam Cardiovascular Exam: REGULAR RHYTHM, +S1, +S2 - GI/Abdominal Exam GI & Abdominal Exam: Diminished Bowel Sounds, Soft - Rectal Exam Rectal Exam: Deferred Results - Vital Signs Recent Vital Signs: Last Vital Signs Temp 97.7 F 05/28/18 15:00 Pulse 101 H 05/28/18 15:00 Resp 20 05/28/18 15:00 BP 148/76 05/28/18 15:00 Pulse Ox 97 05/28/18 16:42 - Labs Result Diagrams: 05/30/18 15:32 05/30/18 15:32 Labs: Laboratory Results - last 24 hr 05/27/18 05/27/18 05/27/18 19:30 19:52 19:52 WBC 8.7 RBC 3.80 Hgb 11.4 Hct 34.4 MCV 90.6 MCH 29.9 MCHC 33.1 RDW 22.1 H Plt Count 205 MPV 9.2 Neut % (Auto) 59.9 Lymph % (Auto) 34.2 [place] % (Auto) 4.4 Eos % (Auto) 0.4 Baso % (Auto) 1.1 Neut # (Auto) 5.2 Lymph # (Auto) 3.0 [place] # (Auto) 0.4 Eos # (Auto) 0.0 Baso # (Auto) 0.1 PT 13.0 H INR 1.2 APTT 26 Sodium Potassium Chloride Carbon Dioxide Anion Gap BUN Creatinine Est GFR ( Amer) Est GFR (Non-Af Amer) POC Glucose (mg/dL) 103 Random Glucose Calcium Total Bilirubin AST ALT Alkaline Phosphatase Total Creatine Kinase CK-MB (Mass) Troponin I NT-Pro-B Natriuret Pep Total Protein Albumin Globulin Albumin/Globulin Ratio Alcohol, Quantitative 05/27/18 05/28/18 05/28/18 20:32 06:54 07:59 WBC RBC Hgb Hct MCV MCH MCHC RDW Plt Count MPV Neut % (Auto) Lymph % (Auto) [place] % (Auto) Eos % (Auto) Baso % (Auto) Neut # (Auto) Lymph # (Auto) [place] # (Auto) Eos # (Auto) Baso # (Auto) PT INR APTT Sodium 143 Potassium 3.3 L Chloride 109 H Carbon Dioxide 23 Anion Gap 14 BUN 7 Creatinine 0.4 L Est GFR ( Amer) > 60 Est GFR (Non-Af Amer) > 60 POC Glucose (mg/dL) 152 H Random Glucose 99 Calcium 7.9 L Total Bilirubin 1.6 H AST 266 H D ALT 120 H D Alkaline Phosphatase 194 H Total Creatine Kinase 220 H 195 H CK-MB (Mass) 2.58 2.57 Troponin I 0.0610 0.0270 NT-Pro-B Natriuret Pep 223 Total Protein 7.1 Albumin 3.4 L Globulin 3.7 Albumin/Globulin Ratio 0.9 L Alcohol, Quantitative 286 H 05/28/18 05/28/18 05/28/18 11:54 13:47 16:36 WBC RBC Hgb Hct MCV MCH MCHC RDW Plt Count MPV Neut % (Auto) Lymph % (Auto) [place] % (Auto) Eos % (Auto) Baso % (Auto) Neut # (Auto) Lymph # (Auto) [place] # (Auto) Eos # (Auto) Baso # (Auto) PT INR APTT Sodium Potassium Chloride Carbon Dioxide Anion Gap BUN Creatinine Est GFR ( Amer) Est GFR (Non-Af Amer) POC Glucose (mg/dL) 144 H 137 H Random Glucose Calcium Total Bilirubin AST ALT Alkaline Phosphatase Total Creatine Kinase 234 H CK-MB (Mass) 2.57 Troponin I 0.0270 NT-Pro-B Natriuret Pep Total Protein Albumin Globulin Albumin/Globulin Ratio Alcohol, Quantitative
[2018-05-28] MEDS: Moxifloxacin IV 400mg/250ml NS 400 MG/250 ML BAG IVPB SCH (21:18)
[2018-05-28] MEDS ORDERED: Albuterol HFA 90 mcg/actuation (8 g) IH PRN (22:20)
[2018-05-29] MEDS: Moxifloxacin IV 400mg/250ml NS 400 MG/250 ML BAG IVPB SCH (00:35)
[2018-05-29] MEDS ORDERED: DiphenhydrAMINE 50 mg/ml Inj IVP STA (00:36)
[2018-05-29] MEDS: Albuterol-Ipratrop 3 mg / 0.5 (3 ml) UD INH SCH ×4 (01:40→20:14)
[2018-05-29] MEDS: Pantoprazole 40 mg EC Tab PO SCH (10:09)
[2018-05-29] MEDS: Azithromycin 500mg/250ML NS 500 MG/250 ML BAG IVPB SCH (10:10)
--- NOTE | 2018-05-29 13:10 | CP.PCM.CON ---
History of Present Illness - History of Present Illness History of Present Illness: 67 year old female with a history of bipolar disorder, asthma, HTN, DM, HL, alcohol abuse, presenting with chest pain, with anemia. The patient reports she has had intermittent anemia in the past. She denies abnormal bleeding and bruising. She continues to drink 5-6 beers daily. She has no fevers or chills. Past medical history: bipolar disorder, asthma, HTN, DM, HL, alcohol abuse Past surgical history: cholecystectomy Family history: Denies hematologic and oncologic problems Social history: Denies tobacco, alcohol, and illicit drug use. Allergies: Ceftriaxone, moxifloxacin Review of systems: All remaining review of systems including HEENT, cardiovascular, respiratory, gastrointestinal, genitourinary, musculoskeletal, dermatologic, neurologic, and psychiatric are negative unless mentioned in the HPI. Past Patient History - Infectious Disease Hx of Infectious Diseases: None - Past Medical History & Family History Past Medical History?: Yes - Past Social History Smoking Status: Light Smoker < 10 Cigarettes Daily - CARDIAC Hx Hypercholesterolemia: Yes Hx Hypertension: Yes Hx Peripheral Edema: Yes - PULMONARY Hx Asthma: Yes Hx Bronchitis: Yes Hx Chronic Obstructive Pulmonary Disease (COPD): Yes Hx Pneumonia: Yes Hx Pulmonary Embolism: Yes - NEUROLOGICAL Hx Seizures: No - HEENT Hx HEENT Problems: No - RENAL Hx Chronic Kidney Disease: No - ENDOCRINE/METABOLIC Hx Hypothyroidism: Yes - HEMATOLOGICAL/ONCOLOGICAL Hx Anemia: Yes Hx Human Immunodeficiency Virus (HIV): No - INTEGUMENTARY Hx Dermatological Problems: No - MUSCULOSKELETAL/RHEUMATOLOGICAL Hx Arthritis: Yes Hx Osteoporosis: Yes - GASTROINTESTINAL Hx Gastritis: Yes - GENITOURINARY/GYNECOLOGICAL Hx Sexually Transmitted Disorders: No - PSYCHIATRIC Hx Anxiety: Yes Hx Bipolar Disorder: Yes Hx Depression: Yes Hx Substance Use: No - SURGICAL HISTORY Hx Cholecystectomy: Yes Hx Coronary Artery Bypass Graft: Yes Hx Coronary Stent: Yes - ANESTHESIA Hx Anesthesia: Yes Hx Anesthesia Reactions: No Hx Malignant Hyperthermia: No Meds Allergies/Adverse Reactions: Allergies Allergy/AdvReac Type Severity Reaction Status Date / Time ceftriaxone Allergy Intermediate RASH Verified 05/27/18 19:27 moxifloxacin HCl Allergy Intermediate RASH Verified 05/27/18 19:27 [From Avelox] - Medications Medications: Current Medications Albuterol (Ventolin Hfa 90 Mcg/Actuation (8 G)) 2 puff IH Q6 PRN PRN Reason: Shortness of Breath Albuterol/Ipratropium (Duoneb 3 Mg/0.5 Mg (3 Ml) Ud) 3 ml INH RQ6 ON LICENSE OF [facility] Last Admin: 05/29/18 07:21 Dose: 3 ml Alprazolam (Xanax) 0.5 mg PO BID ON LICENSE OF [facility] Last Admin: 05/29/18 10:09 Dose: 0.5 mg Apixaban (Eliquis) 10 mg PO BID ON LICENSE OF [facility] Last Admin: 05/29/18 10:09 Dose: 10 mg Aspirin (Aspirin) 325 mg PO DAILY ON LICENSE OF [facility] Last Admin: 05/29/18 10:09 Dose: 325 mg Chlordiazepoxide (Librium) 50 mg PO Q6H PRN PRN Reason: Alcohol Withdrawal Last Admin: 05/29/18 02:08 Dose: 50 mg Clopidogrel Bisulfate (Plavix) 75 mg PO DAILY ON LICENSE OF [facility] Last Admin: 05/29/18 10:10 Dose: 75 mg Diphenhydramine HCl (Benadryl) 25 mg PO Q8 PRN PRN Reason: Allergy symptoms Last Admin: 05/29/18 12:20 Dose: 25 mg Enalapril Maleate (Vasotec) 2.5 mg PO DAILY ON LICENSE OF [facility] Last Admin: 05/29/18 10:09 Dose: 2.5 mg Azithromycin (Zithromax 500mg In Ns Addvantage) 500 mg in 250 mls @ 167 mls/hr IVPB DAILY ON LICENSE OF [facility] PRN Reason: Protocol Last Admin: 05/29/18 10:10 Dose: 167 mls/hr Lorazepam (Ativan) 0.5 mg IVP Q12 PRN PRN Reason: Anxiety Last Admin: 05/28/18 21:17 Dose: 0.5 mg Losartan Potassium (Cozaar) 25 mg PO DAILY ON LICENSE OF [facility] Last Admin: 05/29/18 10:09 Dose: 25 mg Metformin HCl (Glucophage) 500 mg PO BID ON LICENSE OF [facility] Last Admin: 05/29/18 10:09 Dose: 500 mg Methylprednisolone (Solu-Medrol) 40 mg IVPB Q8 ON LICENSE OF [facility] Montelukast Sodium (Singulair) 10 mg PO HS ON LICENSE OF [facility] Last Admin: 05/28/18 21:17 Dose: 10 mg Ondansetron HCl (Zofran Inj) 4 mg IVP Q8 PRN PRN Reason: Nausea/Vomiting Last Admin: 05/28/18 17:09 Dose: 4 mg Pantoprazole Sodium (Protonix Ec Tab) 40 mg PO DAILY ON LICENSE OF [facility] Last Admin: 05/29/18 10:09 Dose: 40 mg Sertraline HCl (Zoloft) 50 mg PO DAILY ON LICENSE OF [facility] Last Admin: 05/29/18 10:09 Dose: 50 mg Spironolactone (Aldactone) 12.5 mg PO BID ON LICENSE OF [facility] Last Admin: 05/29/18 10:10 Dose: 12.5 mg Thiamine HCl (Vitamin B1 Tab) 100 mg PO DAILY ON LICENSE OF [facility] Last Admin: 05/29/18 10:09 Dose: 100 mg Tramadol HCl (Ultram) 50 mg PO Q6H PRN PRN Reason: Pain, moderate (4-7) Last Admin: 05/28/18 17:09 Dose: 50 mg Physical Exam - Head Exam Head Exam: ATRAUMATIC - Eye Exam Eye Exam: Normal appearance - ENT Exam ENT Exam: Mucous Membranes Dry - Respiratory Exam Respiratory Exam: NORMAL BREATHING PATTERN - Cardiovascular Exam Cardiovascular Exam: +S1, +S2 - GI/Abdominal Exam GI & Abdominal Exam: Normal Bowel Sounds Results - Vital Signs Recent Vital Signs: Last Vital Signs Temp 98.4 F 05/29/18 08:25 Pulse 102 H 05/29/18 10:51 Resp 20 05/29/18 08:25 BP 139/77 05/29/18 10:09 Pulse Ox 96 05/29/18 08:25 - Labs Result Diagrams: 05/27/18 19:52 05/27/18 20:32 Labs: Laboratory Results - last 24 hr 05/28/18 05/28/18 05/28/18 13:47 16:36 21:18 POC Glucose (mg/dL) 137 H 207 H Total Creatine Kinase 234 H CK-MB (Mass) 2.57 Troponin I 0.0270 05/29/18 05/29/18 07:05 11:32 POC Glucose (mg/dL) 219 H 237 H Total Creatine Kinase CK-MB (Mass) Troponin I Assessment & Plan (1) Anemia Assessment and Plan: will check retic count, b12, folate, ferritin to further characterize Thank you for this interesting consult. Status: Acute
[2018-05-29] MEDS: MethylPREDNISolone 40 mg Vial IVPB SCH ×2 (13:35→21:24)
--- NOTE | 2018-05-29 15:40 | CARD ---
APPROVED REPORT Date of service: 05/27/2018 EKG Measurement Heart [id number] <Conclusion> Sinus tachycardia LBBB Abnormal ECG
--- NOTE | 2018-05-29 17:21 | CP.PCM.PN ---
Subjective - Date & Time of Evaluation Date of Evaluation: 05/29/18 Time of Evaluation: 11:00 - Subjective Subjective: clinically same Objective - Vital Signs/Intake and Output Vital Signs (last 24 hours): Temp Pulse Resp BP Pulse Ox 97.8 F 105 H 22 136/74 96 05/29/18 16:29 05/29/18 16:29 05/29/18 16:29 05/29/18 16:29 05/29/18 16:29 Intake and Output: 05/29/18 05/29/18 06:59 18:59 Intake Total 1500 900 Balance 1500 900 - Medications Medications: Current Medications Albuterol (Ventolin Hfa 90 Mcg/Actuation (8 G)) 2 puff IH Q6 PRN PRN Reason: Shortness of Breath Albuterol/Ipratropium (Duoneb 3 Mg/0.5 Mg (3 Ml) Ud) 3 ml INH RQ6 [facility] Last Admin: 05/29/18 13:40 Dose: 3 ml Alprazolam (Xanax) 0.5 mg PO BID [facility] Last Admin: 05/29/18 17:18 Dose: 0.5 mg Chlordiazepoxide (Librium) 50 mg PO Q6H PRN PRN Reason: Alcohol Withdrawal Last Admin: 05/29/18 02:08 Dose: 50 mg Diphenhydramine HCl (Benadryl) 25 mg PO Q8 PRN PRN Reason: Allergy symptoms Last Admin: 05/29/18 12:20 Dose: 25 mg Enalapril Maleate (Vasotec) 2.5 mg PO DAILY [facility] Last Admin: 05/29/18 10:09 Dose: 2.5 mg Azithromycin (Zithromax 500mg In Ns Addvantage) 500 mg in 250 mls @ 167 mls/hr IVPB DAILY [facility] PRN Reason: Protocol Last Admin: 05/29/18 10:10 Dose: 167 mls/hr Lorazepam (Ativan) 0.5 mg IVP Q12 PRN PRN Reason: Anxiety Last Admin: 05/28/18 21:17 Dose: 0.5 mg Losartan Potassium (Cozaar) 25 mg PO DAILY [facility] Last Admin: 05/29/18 10:09 Dose: 25 mg Metformin HCl (Glucophage) 500 mg PO BID [facility] Last Admin: 05/29/18 17:18 Dose: 500 mg Methylprednisolone (Solu-Medrol) 40 mg IVPB Q8 [facility] Last Admin: 05/29/18 13:35 Dose: 40 mg Montelukast Sodium (Singulair) 10 mg PO HS [facility] Last Admin: 05/28/18 21:17 Dose: 10 mg Ondansetron HCl (Zofran Inj) 4 mg IVP Q8 PRN PRN Reason: Nausea/Vomiting Last Admin: 05/28/18 17:09 Dose: 4 mg Pantoprazole Sodium (Protonix Ec Tab) 40 mg PO DAILY [facility] Last Admin: 05/29/18 10:09 Dose: 40 mg Sertraline HCl (Zoloft) 50 mg PO DAILY [facility] Last Admin: 05/29/18 10:09 Dose: 50 mg Spironolactone (Aldactone) 12.5 mg PO BID [facility] Last Admin: 05/29/18 10:10 Dose: 12.5 mg Thiamine HCl (Vitamin B1 Tab) 100 mg PO DAILY [facility] Last Admin: 05/29/18 10:09 Dose: 100 mg Tramadol HCl (Ultram) 50 mg PO Q6H PRN PRN Reason: Pain, moderate (4-7) Last Admin: 05/28/18 17:09 Dose: 50 mg - Labs Labs: 05/27/18 19:52 05/27/18 20:32 PT 13.0 SECONDS (9.7-12.2) H 05/27/18 19:52 INR 1.2 05/27/18 19:52 APTT 26 SECONDS (21-34) 05/27/18 19:52 - Constitutional Appears: Well - Head Exam Head Exam: ATRAUMATIC, NORMAL INSPECTION, NORMOCEPHALIC - Eye Exam Eye Exam: EOMI, Normal appearance, PERRL Pupil Exam: NORMAL ACCOMODATION, PERRL - ENT Exam ENT Exam: Mucous Membranes Moist, Normal Exam - Neck Exam Neck Exam: Full ROM, Normal Inspection. absent: Lymphadenopathy - Respiratory Exam Respiratory Exam: Decreased Breath Sounds - Cardiovascular Exam Cardiovascular Exam: REGULAR RHYTHM, +S1, +S2 - GI/Abdominal Exam GI & Abdominal Exam: Soft, Diminished Bowel Sounds - Rectal Exam Rectal Exam: Deferred Assessment and Plan - Assessment and Plan (Free Text) Plan: Patient seen and examined bedside ECG showing left axis deviation, LBBB, no acute ST changes Albuterol nebulizer Zithromax GI prophylaxis Was a deck, spironolactone, Cozaar Chest x-ray showing no acute disease. Recent venous Doppler extremity done in last month was negative for DVT Cardiac consult done-recommended to check reticulocyte count, B12, folate, ferritin r/o cause of anemia
[2018-05-30] MEDS: Albuterol-Ipratrop 3 mg / 0.5 (3 ml) UD INH SCH ×4 (02:01→20:39)
--- NOTE | 2018-05-30 03:06 | CON ---
Copied To: Brandon Mcmahon MD Attending MD: Brandon Mcmahon MD DATE: 05/29/2018 REASON FOR CONSULTATION: Chest pain. HISTORY OF PRESENT ILLNESS: The patient is known to me from two recent admissions. The patient is a 67-year-old female, who is a heavy smoker and heavy ETOH abuser, presented because of chest discomfort. The patient was found to be intoxicated with alcohol level of 286. The patient had recent admission to [place] , and I have seen her during that admission. The patient underwent cardiac catheterization on 03/14/2018, which revealed unremarkable coronary circulation with normal ejection fraction with inferobasal hypokinesis. Medical management was recommended at the time, and the patient was advised to abstain from both ETOH abuse and smoking. SOCIAL HISTORY: The patient is a smoker, heavy ETOH abuser. She lives by herself. MEDICATIONS: Aldactone 12.5 mg twice a day, aspirin 325 mg once a day, Benadryl 25 mg every 8 hours, Cozaar 25 mg once a day, Eliquis 10 mg twice a day, metformin 500 mg twice a day, Librium 50 mg every 6 hours, Plavix 75 mg once a day, Protonix 40 mg p.o. daily, Solu-Medrol 40 mg intravenously every 8 hours, Lasix 2.5 mg once a day, albuterol inhaler every 6 hours, Xanax 0.5 mg twice a day, thiamine 100 mg once a day, Zithromax 500 mg intravenously daily, Zofran 4 mg intravenous every 8 hours p.r.n., Zoloft 50 mg once a day. PAST MEDICAL HISTORY: History of deep venous thrombosis and pulmonary embolism in the past. History of hypertension, diabetes mellitus, and chronic obstructive lung disease . History of alcoholic liver disease. PHYSICAL EXAMINATION: GENERAL: The patient is an elderly female who does not appear to be in acute distress. VITAL SIGNS: Blood pressure 139/77, heart rate 111, temperature 98.4, respirations 20. HEENT: Normocephalic. CHEST: Scattered bilateral wheezing. HEART: S1 and S2 regular. ABDOMEN: Soft. EXTREMITIES: 1+ pitting edema. LABORATORY DATA: SMA-7, sodium 143, potassium 3.3, chloride 109, CO2 of 23, glucose 99, BUN 7, creatinine 0.4. AST and ALT are 266 and 120 respectively, alkaline phosphatase 194. INR is 1.2, PTT 26. On admission, hemoglobin, hematocrit, white count, and platelet count are within normal limits. Chest x-ray report, no active disease. EKG revealed sinus tachycardia at the rate of 133, left bundle branch block. The patient's left bundle branch block is an old one and cardiac catheterization in 02/2018. Left bundle branch block has been there since 02/2018. ASSESSMENT: 1. Atypical chest pain, myocardial infarction is ruled out. 2. Uncontrolled diabetes mellitus. 3. Alcohol intoxication. 4. Chronic obstructive lung disease. 5. Hypertension. 6. Alcoholic liver disease. 7. History of deep venous thrombosis and pulmonary embolism in the past. RECOMMENDATION: Continue albuterol inhaler, thiamine 100 mg once a day, IV Zithromax 500 mg daily, Lasix 2.5 mg once a day, albuterol inhaler, Solu-Medrol 40 mg intravenously every 8 hours, Singulair 10 mg every bedtime, Protonix 40 mg by mouth once a day, Plavix 75 mg once a day, Librium 50 mg every 6 hours, metformin 500 mg twice a day, Eliquis 10 mg twice a day, Cozaar 25 mg once a day, aspirin 325 mg once a day, Aldactone 12.5 mg twice a day. The patient's most recent venous Doppler extremity last month in April was negative for DVT. Brandon Mcmahon MD
[2018-05-30] MEDS: MethylPREDNISolone 40 mg Vial IVPB SCH ×3 (05:31→21:30)
--- NOTE | 2018-05-30 06:51 | CON ---
Copied To: Tommie Montero MD Attending MD: Tommie Montero MD DATE: 05/29/2018 HISTORY OF PRESENT ILLNESS: A 67-year-old female with history of COPD, admitted with chief complaint of shortness of breath, weakness, fatigue, tiredness, chest pain, nausea, vomiting. Came to the ER, advised admission. The patient is ex-smoker. The patient has nebulizer, which she uses occasionally. The patient has a remote history of heart disease as well, she is not quite sure about the nature of the disease. PHYSICAL EXAMINATION: GENERAL: The patient is awake, alert, and oriented. VITAL SIGNS: Temperature 98, pulse 90. HEENT: Within normal limits. NECK: Supple. CHEST: Symmetrical. HEART: Regular. ABDOMEN: Soft. EXTREMITIES: No edema. ASSESSMENT: The patient suffers from exacerbation of chronic obstructive pulmonary disease, bronchitis. The patient is started on bronchodilators, steroids. The patient advised to use the outpatient, flu shot pneumonia. Tommie Montero MD
[2018-05-30 07:27] LABS: LYMPH # 0.6 K/uL (1.0-4.3); MEAN CORPUSCULAR HEMOGLOBIN 31.4 pg (27.0-31.0); MONO # 0.3 K/uL (0.0-0.8); MONO % 4.7 % (0.0-10.0)
[2018-05-30 07:42] LABS: BASO % 0.2 % (0.0-2.0); LYMPH % 7.8 % (20.0-40.0); MEAN CORPUSCULAR HGB CONC 33.8 g/dL (33.0-37.0); MEAN PLATELET VOLUME 9.7 fL (7.2-11.7); NEUT # 6.4 K/uL (1.8-7.0); NEUT % 87.3 % (50.0-75.0); NRBC % 0.5 % (0.0-2.0); RED CELL DISTRIBUTION WIDTH 22.1 % (11.5-14.5); WHITE BLOOD COUNT 7.3 K/uL (4.8-10.8)
[2018-05-30 07:49] LABS: HEMOGLOBIN 8.5 g/dL (11.0-16.0); PLATELET COUNT 83 K/uL (130-400)
[2018-05-30 08:07] LABS: ALB/GLOB RATIO 0.9 (1.0-2.1); ALBUMIN 2.8 g/dL (3.5-5.0); ALT/SGPT 76 U/L (9-52); AST/SGOT 75 U/L (14-36); BILIRUBIN,DIRECT 0.7 mg/dL (0.0-0.4); BLOOD UREA NITROGEN 22 mg/dL (7-17); CALCIUM 9.3 mg/dl (8.6-10.4); GFR NON-AFRICAN AMERICAN > 60
[2018-05-30 08:55] LABS: FOLATE 10.7 ng/mL
[2018-05-30 09:12] LABS: LYMPHOCYTE 8 % (20-40); MONOCYTE 3 % (0-10); NEUTROPHIL 89 % (50-75); TOTAL CELLS COUNTED 100
[2018-05-30 09:13] LABS: ANISOCYTOSIS SLIGHT; HYPOCHROMIC MODERATE; PLATELET ESTIMATE DECREASED (NORMAL); POIKILOCYTOSIS SLIGHT
[2018-05-30 09:14] LABS: TARGET CELLS MODERATE
[2018-05-30 09:15] LABS: TEARDROP CELLS SLIGHT
[2018-05-30] MEDS: Pantoprazole 40 mg EC Tab PO SCH (09:44)
[2018-05-30] MEDS: Azithromycin 500mg/250ML NS 500 MG/250 ML BAG IVPB SCH (09:50)
--- NOTE | 2018-05-30 11:26 | PCM.PSYCH ---
Initial Psychiatric Evaluation - Initial Psychiatric Evaluation Type of Admission: Voluntary Legal Status: Capacity Chief Complaint (in patient's own words): I feel depressed History of Present Illness and Precipitating Events: PGY-1 Initial Psychiatric Note for Dr. Patterson. Patient is a 67 year old female with past history of depression and bipolar disorder who is retired, lives alone and has 4 living children and 2 children who are . Patient initially presented for chest pain and shortness of breath. Psych was consulted for medical management of psychiatric disorders. Patient states she takes xaanax 1mg BID, trazadone 100mg HS and buspar prescribed by her psychiatirst, Dr. Espinoza Carcamo. States Dr. Carcamo has retired since her last visit and will now need to find a new doctor. She has 3-4 psychiatric hospitalizations in the past for depression and suicidal ideation. Patient complains of depressed mood and anhedonia presently. Denies suicidal ideation, previous suicide attempt (however EMR shows previous psych admission at [facility] 08/2014 for suicide attempt by trying to jump in front of cars), auditory or visual hallucinations, and manic symptoms. Psych Hx: major depressive disorder and bipolar disorder Psych Hospitalizations: multiple hospitalizations for depression, suicide attempt- [facility] (01/2018, 2013, 2012) Family Psych Hx: one son and one daughter with bipolar disorder Social: Patient endorses occasional alcohol use however EMR shows multiple ED visits for alcohol intoxication, smokes 2-3 cigarettes daily, denies illicit drug use PMHx: DM, CAD, asthma, COPD, HTN, Hypercholesterolemia, Hypothyroidism, CKD, PE Current Medications: Active Medications Generic Name Dose Route Start Last Admin Trade Name Freq PRN Reason Stop Dose Admin Albuterol 2 puff 05/28/18 22:20 Ventolin Hfa 90 Mcg/Actuation (8 G) IH Q6 PRN Shortness of Breath Albuterol/Ipratropium 3 ml 05/28/18 14:00 05/30/18 02:01 Duoneb 3 Mg/0.5 Mg (3 Ml) Ud INH 3 ml RQ6 JESSE Administration Alprazolam 0.5 mg 05/28/18 06:15 05/30/18 09:44 Xanax PO 0.5 mg BID JESSE Administration Chlordiazepoxide 50 mg 05/28/18 12:59 05/30/18 00:24 Librium PO 50 mg Q6H PRN Administration Alcohol Withdrawal Diphenhydramine HCl 25 mg 05/29/18 00:37 05/29/18 21:23 Benadryl PO 25 mg Q8 PRN Administration Allergy symptoms Enalapril Maleate 2.5 mg 05/28/18 10:00 05/30/18 09:44 Vasotec PO 2.5 mg DAILY JESSE Administration Azithromycin 500 mg in 250 mls @ 167 mls/hr 05/29/18 10:00 05/30/18 09:50 Zithromax 500mg In Ns Addvantage IVPB 167 mls/hr DAILY JESSE Administration Protocol Lorazepam 0.5 mg 05/28/18 16:47 05/30/18 02:00 Ativan IVP 0.5 mg Q12 PRN Administration Anxiety Losartan Potassium 25 mg 05/28/18 10:00 05/30/18 09:44 Cozaar PO 25 mg DAILY JESSE Administration Metformin HCl 500 mg 05/28/18 10:00 05/30/18 09:44 Glucophage PO 500 mg BID JESSE Administration Methylprednisolone 40 mg 05/29/18 14:00 05/30/18 05:31 Solu-Medrol IVPB 40 mg Q8 JESSE Administration Montelukast Sodium 10 mg 05/27/18 22:00 05/29/18 21:23 Singulair PO 10 mg HS JESSE Administration Ondansetron HCl 4 mg 05/28/18 16:47 05/28/18 17:09 Zofran Inj IVP 4 mg Q8 PRN Administration Nausea/Vomiting Pantoprazole Sodium 40 mg 05/28/18 10:00 05/30/18 09:44 Protonix Ec Tab PO 40 mg DAILY JESSE Administration Sertraline HCl 50 mg 05/28/18 10:00 05/30/18 09:44 Zoloft PO 50 mg DAILY JESSE Administration Spironolactone 12.5 mg 05/28/18 10:00 05/30/18 09:44 Aldactone PO 12.5 mg BID JESSE Administration Thiamine HCl 100 mg 05/28/18 10:00 05/30/18 09:44 Vitamin B1 Tab PO 100 mg DAILY JESSE Administration Tramadol HCl 50 mg 05/28/18 10:07 05/28/18 17:09 Ultram PO 50 mg Q6H PRN Administration Pain, moderate (4-7) Past Psychiatric History - Past Psychiatric History Pertinent Medical Hx (Current Medical&Sleep Prob, Allergies): Allergies Allergy/AdvReac Type Severity Reaction Status Date / Time ceftriaxone Allergy Intermediate RASH Verified 05/27/18 19:27 moxifloxacin HCl Allergy Intermediate RASH Verified 05/27/18 19:27 [From Avelox] metFORMIN [glucOPHAGE] 500 mg PO BID #60 tab 02/08/18 Enalapril Maleate [Vasotec] 2.5 mg PO DAILY #30 tab 03/17/18 Spironolactone [Aldactone] 12.5 mg PO BID #30 tab 03/17/18 Thiamine [Vitamin B1 Tab] 100 mg PO DAILY #30 tab 03/17/18 Apixaban [Eliquis] 10 mg PO BID #14 tab 04/02/18 Pantoprazole Sodium [Protonix] 40 mg PO DAILY #15 ect 05/09/18 Albuterol Sulfate [Proair Hfa] 2 puff IH Q6 PRN 05/12/18 Losartan [Cozaar] 25 mg PO DAILY 05/12/18 Sertraline [Zoloft] 50 mg PO DAILY 05/12/18 Alprazolam [Xanax] 0.5 mg PO BID #10 tablet 05/14/18 Methylprednisolone [Medrol Dose Pack (21 tabs)] 4 mg PO DAILY #21 mg 05/14/18 Review of Systems - Psychiatric Psychiatric: Anhedonia, Depression. absent: Auditory Hallucinations, Behavioral Changes, Change in Appetite, Hallucinations, Homicidal Ideation, Hopelessness, Irritability, Memory Loss, Mood Swings, Panic Attacks, Paranoia, Suicidal Ideation Mental Status Examination - Personal Presentation Personal Presentation: Looks older than stated age - Affect Affect: Flat - Motor Activity Motor Activity: Calm - Reliability in Providing Information Reliability in Providing Information: Other (poor due to contradicting documentation in EMR) - Speech Speech: Organized, Relevant, Coherent - Mood Mood: Depressed, Anxious - Formal Thought Process Formal Thought Process: No Impairment - Obsessions/Compulsions Obsessions: No Compulsions: No - Cognitive Functions Orientation: Person, Place, Situation, Time Sensorium: Alert Attention/Concentration: Attentive Estimate of Intelligence: Average Judgement: Imparied, as evidence by: Lack of insight into illness Memory: Recent intact, as evidence by: Ability to recall events of the day - Risk Risk: Diminished functioning - Limitations Limitations: Living alone DSM 5 DX - DSM 5 DSM 5 Diagnosis: Major Depressive Disorder, recurrent, severe - Recommended/Plan of Treatment Treatment Recommendations and Plan of Treatment: Major Depressive Disorder, recurrent, severe Continue Sertraline 50mg PO daily as per PMD Trazodone 50mg PO HS Supportive therapy and psychoeducation 33 minutes Case discussed with Dr. Patterson
[2018-05-30] MEDS ORDERED: Glucagon Recombinant 1 mg Inj IM PRN (12:22)
[2018-05-30] MEDS ORDERED: Dextrose 50% SYRINGE Inj (50 ml) IV PRN (12:22)
[2018-05-30 12:32] LABS: URINE BILIRUBIN NEGATIVE (NEGATIVE); URINE BLOOD NEGATIVE (NEGATIVE); URINE CALCIUM OXALATE CRYSTALS FEW /hpf (<OCC); URINE CLARITY Clear (Clear); URINE COLOR Yellow (YELLOW); URINE GLUCOSE (UA) NORMAL (Normal); URINE LEUKOCYTE ESTERASE NEG Leu/uL (Negative); URINE PROTEIN NEGATIVE (NEGATIVE)
[2018-05-30 12:49] LABS: BARBITURATES, UR NEGATIVE (NEGATIVE); OPIATES, UR NEGATIVE (NEGATIVE); PHENCYCLIDINE, UR NEGATIVE (NEGATIVE)
[2018-05-30 13:08] LABS: BENZODIAZEPINES, UR POSITIVE (NEGATIVE)
[2018-05-30 15:40] LABS: BASO % 0.1 % (0.0-2.0); LYMPH # 0.5 K/uL (1.0-4.3); MEAN CELL VOLUME 95.1 fL (81.0-99.0); MEAN CORPUSCULAR HEMOGLOBIN 31.3 pg (27.0-31.0); MEAN CORPUSCULAR HGB CONC 32.9 g/dL (33.0-37.0); MEAN PLATELET VOLUME 10.3 fL (7.2-11.7); MONO # 0.3 K/uL (0.0-0.8); MONO % 3.8 % (0.0-10.0); NEUT # 7.6 K/uL (1.8-7.0); NEUT % 90.1 % (50.0-75.0); NRBC % 0.2 % (0.0-2.0); PLATELET COUNT 84 K/uL (130-400); RBC 2.56 Mil/uL (3.80-5.20); RED CELL DISTRIBUTION WIDTH 22.3 % (11.5-14.5); WHITE BLOOD COUNT 8.5 K/uL (4.8-10.8)
[2018-05-30 15:54] LABS: ALB/GLOB RATIO 0.9 (1.0-2.1); ALBUMIN 2.9 g/dL (3.5-5.0); ALT/SGPT 70 U/L (9-52); AST/SGOT 66 U/L (14-36); BLOOD UREA NITROGEN 24 mg/dL (7-17); CALCIUM 9.2 mg/dl (8.6-10.4); GFR NON-AFRICAN AMERICAN > 60
[2018-05-30 15:55] LABS: LYMPHOCYTE 6 % (20-40); MONOCYTE 2 % (0-10); NEUTROPHIL 92 % (50-75); NUCLEATED RED BLOOD CELL 1 % (0-0); TOTAL CELLS COUNTED 100
[2018-05-30 15:56] LABS: PLATELET ESTIMATE DECREASED (NORMAL)
[2018-05-30 15:57] LABS: ANISOCYTOSIS SLIGHT; HYPOCHROMIC SLIGHT; POIKILOCYTOSIS SLIGHT; TARGET CELLS SLIGHT
[2018-05-30] MEDS ORDERED: Octreotide 500 mcg/ml Inj IV ONE (16:00)
[2018-05-30] MEDS ORDERED: Octreotide 500 mcg/ml Inj SC ONE (16:15)
[2018-05-30 16:43] LABS: INR 1.3; PROTHROMBIN TIME 14.3 SECONDS (9.7-12.2)
--- NOTE | 2018-05-30 16:50 | CT ---
Date of service: 05/30/2018 PROCEDURE: CT HEAD WITHOUT CONTRAST. HISTORY: confusion COMPARISON: 08/24/2014. TECHNIQUE: Axial computed tomography images were obtained through the head/brain without intravenous contrast. Radiation dose: Total exam DLP = 1137.10 mGy-cm. This CT exam was performed using one or more of the following dose reduction techniques: Automated exposure control, adjustment of the mA and/or kV according to patient size, and/or use of iterative reconstruction technique. FINDINGS: HEMORRHAGE: No intracranial hemorrhage. BRAIN: There are mild chronic microangiopathic changes. There is no mass, mass effect or abnormal extra-axial fluid collection. There is no territorial infarction. The midline sagittal structures are normal. VENTRICLES: There is mild age-related global parenchymal volume loss and proportionate enlargement of the ventricles and cortical sulci. CALVARIUM: The skull base and calvarium are normal. PARANASAL SINUSES: Predominantly clear. MASTOID AIR CELLS: Underdeveloped. OTHER FINDINGS: None. IMPRESSION: No acute intracranial abnormality. Mild chronic microangiopathic changes and mild age-related global parenchymal volume loss.
[2018-05-30] MEDS: (Novolin R) Insulin Human Regular 100 units/ml vial SC SCH ×2 (18:13→21:12)
[2018-05-30] MEDS: Pantoprazole 80 MG in Sodium Chloride 0.9% 100 ML IVPB SCH (18:59)
--- NOTE | 2018-05-30 19:04 | CP.PCM.CON ---
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 Patient admits to drinking 3-4 beers daily for many years with last drink day of admission. New one time episode of melena today. Admits to epigastric/LUQ pain. Denies nausea, vomiting , hematemesis, diarrhea, constipation, hematochezia, lightheadedness, or dizziness. Notes new bruising of arms,legs, and chest over the last week. Admits to chest pain, shortness of breath, abdominal distension, and leg swelling for the last few days. Endorses prior EGD two years ago at [facility] [place] for vomiting blood with unknown results. Denies prior colonoscopy. Family History- sister- liver cancer- at 70 years of age; mother- uterine cancer , father-unknown cancer Social History- quit tobacco 1 week ago; 3-4 beers daily for many years, denies illicit drug use Surgical History- cholecystectomy, IVC filter Review of Systems - Review of Systems Review of Systems: 12-point review of systems negative except for as above Past Patient History - Infectious Disease Hx of Infectious Diseases: None - Past Medical History & Family History Past Medical History?: Yes - Past Social History Smoking Status: Light Smoker < 10 Cigarettes Daily - CARDIAC Hx Hypercholesterolemia: Yes Hx Hypertension: Yes Hx Peripheral Edema: Yes - PULMONARY Hx Asthma: Yes Hx Bronchitis: Yes Hx Chronic Obstructive Pulmonary Disease (COPD): Yes Hx Pneumonia: Yes Hx Pulmonary Embolism: Yes - NEUROLOGICAL Hx Seizures: No - HEENT Hx HEENT Problems: No - RENAL Hx Chronic Kidney Disease: No - ENDOCRINE/METABOLIC Hx Hypothyroidism: Yes - HEMATOLOGICAL/ONCOLOGICAL Hx Anemia: Yes Hx Human Immunodeficiency Virus (HIV): No - INTEGUMENTARY Hx Dermatological Problems: No - MUSCULOSKELETAL/RHEUMATOLOGICAL Hx Arthritis: Yes Hx Osteoporosis: Yes - GASTROINTESTINAL Hx Gastritis: Yes - GENITOURINARY/GYNECOLOGICAL Hx Sexually Transmitted Disorders: No - PSYCHIATRIC Hx Anxiety: Yes Hx Bipolar Disorder: Yes Hx Depression: Yes Hx Substance Use: No - SURGICAL HISTORY Hx Cholecystectomy: Yes Hx Coronary Artery Bypass Graft: Yes Hx Coronary Stent: Yes - ANESTHESIA Hx Anesthesia: Yes Hx Anesthesia Reactions: No Hx Malignant Hyperthermia: No Meds Allergies/Adverse Reactions: Allergies Allergy/AdvReac Type Severity Reaction Status Date / Time ceftriaxone Allergy Intermediate RASH Verified 05/27/18 19:27 moxifloxacin HCl Allergy Intermediate RASH Verified 05/27/18 19:27 [From Avelox] - Medications Medications: Current Medications Albuterol (Ventolin Hfa 90 Mcg/Actuation (8 G)) 2 puff IH Q6 PRN PRN Reason: Shortness of Breath Albuterol/Ipratropium (Duoneb 3 Mg/0.5 Mg (3 Ml) Ud) 3 ml INH RQ6 [facility] Last Admin: 05/30/18 14:00 Dose: 3 ml Alprazolam (Xanax) 0.5 mg PO BID [facility] Last Admin: 05/30/18 18:12 Dose: 0.5 mg Chlordiazepoxide (Librium) 50 mg PO Q6H PRN PRN Reason: Alcohol Withdrawal Last Admin: 05/30/18 00:24 Dose: 50 mg Dextrose (Dextrose 50% Inj) 0 ml IV STAT PRN; Protocol PRN Reason: Hypoglycemia Protocol Dextrose (Glutose 15) 0 gm PO ONCE PRN; Protocol PRN Reason: Hypoglycemia Protocol Diphenhydramine HCl (Benadryl) 25 mg PO Q8 PRN PRN Reason: Allergy symptoms Last Admin: 05/29/18 21:23 Dose: 25 mg Enalapril Maleate (Vasotec) 2.5 mg PO DAILY [facility] Last Admin: 05/30/18 09:44 Dose: 2.5 mg Glucagon (Glucagen Diagnostic Kit) 0 mg IM STAT PRN; Protocol PRN Reason: Hypoglycemia Protocol Azithromycin (Zithromax 500mg In Ns Addvantage) 500 mg in 250 mls @ 167 mls/hr IVPB DAILY [facility] PRN Reason: Protocol Last Admin: 05/30/18 09:50 Dose: 167 mls/hr Dextrose (Dextrose 5% In Water 1000 Ml) 1,000 mls @ 0 mls/hr IV .Q0M PRN; Protocol; Per Protocol PRN Reason: Hypoglycemia Protocol Octreotide Acetate 1,250 mcg/ (Sodium Chloride) 252.5 mls @ 5.05 mls/hr IV .Q24H [facility]; 25 MCG/HR PRN Reason: Protocol Last Admin: 05/30/18 17:08 Dose: 5.05 mls/hr Pantoprazole Sodium 80 mg/ (Sodium Chloride) 100 mls @ 10 mls/hr IVPB .Q10H [facility] PRN Reason: 8 MG/HR Insulin Human Regular (Novolin R) 0 unit SC ACHS [facility] PRN Reason: Protocol Last Admin: 05/30/18 18:13 Dose: 3 unit Lorazepam (Ativan) 0.5 mg IVP Q12 PRN PRN Reason: Anxiety Last Admin: 05/30/18 02:00 Dose: 0.5 mg Losartan Potassium (Cozaar) 25 mg PO DAILY [facility] Last Admin: 05/30/18 09:44 Dose: 25 mg Metformin HCl (Glucophage) 500 mg PO BID [facility] Last Admin: 05/30/18 18:12 Dose: 500 mg Methylprednisolone (Solu-Medrol) 40 mg IVPB Q8 [facility] Last Admin: 05/30/18 13:26 Dose: 40 mg Montelukast Sodium (Singulair) 10 mg PO [facility] Last Admin: 05/29/18 21:23 Dose: 10 mg Ondansetron HCl (Zofran Inj) 4 mg IVP Q8 PRN PRN Reason: Nausea/Vomiting Last Admin: 05/28/18 17:09 Dose: 4 mg Sertraline HCl (Zoloft) 50 mg PO DAILY [facility] Last Admin: 05/30/18 09:44 Dose: 50 mg Spironolactone (Aldactone) 12.5 mg PO BID [facility] Last Admin: 05/30/18 18:12 Dose: 12.5 mg Thiamine HCl (Vitamin B1 Tab) 100 mg PO DAILY [facility] Last Admin: 05/30/18 09:44 Dose: 100 mg Tramadol HCl (Ultram) 50 mg PO Q6H PRN PRN Reason: Pain, moderate (4-7) Last Admin: 05/28/18 17:09 Dose: 50 mg Trazodone HCl (Desyrel) 50 mg PO [facility] Physical Exam - Constitutional Appears: Non-toxic, No Acute Distress - Head Exam Head Exam: ATRAUMATIC, NORMOCEPHALIC - Eye Exam Eye Exam: EOMI, PERRL, Scleral icterus Pupil Exam: PERRL. absent: Miosis, Mydriatic - ENT Exam ENT Exam: Mucous Membranes Moist, Normal Oropharynx - Neck Exam Neck exam: Positive for: Full Rom, Normal Inspection - Respiratory Exam Respiratory Exam: Clear to Auscultation Bilateral. absent: Rales, Rhonchi, Wheezes - Cardiovascular Exam Cardiovascular Exam: RRR, +S1, +S2. absent: Gallop, Rubs - GI/Abdominal Exam GI & Abdominal Exam: Normal Bowel Sounds, Soft, Tenderness. absent: Distended, Firm, Guarding, Organomegaly, Rebound, Rigid Additional comments: epigastric/LUQ tenderness to palpation - Rectal Exam Rectal Exam: Black Stool - Extremities Exam Extremities exam: Positive for: pedal edema - Neurological Exam Neurological exam: Alert Additional comments: no asterixis - Psychiatric Exam Psychiatric exam: Normal Affect, Normal Mood - Skin Skin Exam: Dry, Intact, Normal Color, Warm Results - Vital Signs Recent Vital Signs: Last Vital Signs Temp 98.3 F 05/30/18 15:30 Pulse 101 H 05/30/18 15:30 Resp 18 05/30/18 15:30 BP 107/60 05/30/18 15:30 Pulse Ox 97 05/30/18 15:30 - Labs Result Diagrams: 05/30/18 15:32 05/30/18 15:32 Labs: Laboratory Results - last 24 hr 05/29/18 05/30/18 05/30/18 20:56 06:13 07:13 WBC 7.3 RBC 2.70 L Hgb 8.5 L D Hct 25.1 L MCV 93.0 D MCH 31.4 H MCHC 33.8 RDW 22.1 H Plt Count 83 L D MPV 9.7 Neut % (Auto) 87.3 H Lymph % (Auto) 7.8 L Wells % (Auto) 4.7 Eos % (Auto) 0.0 Baso % (Auto) 0.2 Neut # (Auto) 6.4 Lymph # (Auto) 0.6 L Wells # (Auto) 0.3 Eos # (Auto) 0.0 Baso # (Auto) 0.0 Neutrophils % (Manual) 89 H Lymphocytes % (Manual) 8 L Monocytes % (Manual) 3 Nucleated RBC % Platelet Estimate Decreased L Hypochromasia (manual) Moderate Poikilocytosis (manual Slight Anisocytosis (manual) Slight Target Cells Moderate Tear Drop Cells Slight Retic Count 2.6 H PT INR Sodium Potassium Chloride Carbon Dioxide Anion Gap BUN Creatinine Est GFR ( Amer) Est GFR (Non-Af Amer) POC Glucose (mg/dL) 186 H 195 H Random Glucose Calcium Ferritin Total Bilirubin Direct Bilirubin AST ALT Alkaline Phosphatase Ammonia Total Protein Albumin Globulin Albumin/Globulin Ratio Vitamin B12 Folate Urine Color Urine Clarity Urine pH Ur Specific [place] Urine Protein Urine Glucose (UA) Urine Ketones Urine Blood Urine Nitrate Urine Bilirubin Urine Urobilinogen Ur Leukocyte Esterase Urine WBC (Auto) Calcium Oxalate Crystal Urine Opiates Screen Urine Methadone Screen Ur Barbiturates Screen Ur Phencyclidine Scrn Ur Amphetamines Screen U Benzodiazepines Scrn U Oth Cocaine Metabols U Cannabinoids Screen Blood Type Antibody Screen Antibody Identification 05/30/18 05/30/18 05/30/18 07:13 11:03 12:19 WBC RBC Hgb Hct MCV MCH MCHC RDW Plt Count MPV Neut % (Auto) Lymph % (Auto) Wells % (Auto) Eos % (Auto) Baso % (Auto) Neut # (Auto) Lymph # (Auto) Wells # (Auto) Eos # (Auto) Baso # (Auto) Neutrophils % (Manual) Lymphocytes % (Manual) Monocytes % (Manual) Nucleated RBC % Platelet Estimate Hypochromasia (manual) Poikilocytosis (manual Anisocytosis (manual) Target Cells Tear Drop Cells Retic Count PT INR Sodium 137 Potassium 4.2 Chloride 102 Carbon Dioxide 30 Anion Gap 10 BUN 22 H Creatinine 0.6 L Est GFR ( Amer) > 60 Est GFR (Non-Af Amer) > 60 POC Glucose (mg/dL) 353 H Random Glucose 196 H Calcium 9.3 Ferritin 58.0 Total Bilirubin 1.3 Direct Bilirubin 0.7 H AST 75 H D ALT 76 H D Alkaline Phosphatase 113 Ammonia Total Protein 6.0 L Albumin 2.8 L Globulin 3.2 Albumin/Globulin Ratio 0.9 L Vitamin B12 443 Folate 10.7 Urine Color Yellow Urine Clarity Clear Urine pH 7.0 Ur Specific [place] 1.015 Urine Protein Negative Urine Glucose (UA) Normal Urine Ketones Negative Urine Blood Negative Urine Nitrate Negative Urine Bilirubin Negative Urine Urobilinogen 2.0 H Ur Leukocyte Esterase Neg Urine WBC (Auto) 1 Calcium Oxalate Crystal Few H Urine Opiates Screen Urine Methadone Screen Ur Barbiturates Screen Ur Phencyclidine Scrn Ur Amphetamines Screen U Benzodiazepines Scrn U Oth Cocaine Metabols U Cannabinoids Screen Blood Type Antibody Screen Antibody Identification 05/30/18 05/30/18 05/30/18 12:19 15:32 15:32 WBC 8.5 RBC 2.56 L Hgb 8.0 L Hct 24.3 L MCV 95.1 D MCH 31.3 H MCHC 32.9 L RDW 22.3 H Plt Count 84 L MPV 10.3 Neut % (Auto) 90.1 H Lymph % (Auto) 6.0 L Wells % (Auto) 3.8 Eos % (Auto) 0.0 Baso % (Auto) 0.1 Neut # (Auto) 7.6 H Lymph # (Auto) 0.5 L Wells # (Auto) 0.3 Eos # (Auto) 0.0 Baso # (Auto) 0.0 Neutrophils % (Manual) 92 H Lymphocytes % (Manual) 6 L Monocytes % (Manual) 2 Nucleated RBC % 1 H Platelet Estimate Decreased L Hypochromasia (manual) Slight Poikilocytosis (manual Slight Anisocytosis (manual) Slight Target Cells Slight Tear Drop Cells Retic Count PT INR Sodium 137 Potassium 4.3 Chloride 103 Carbon Dioxide 26 Anion Gap 12 BUN 24 H Creatinine 0.5 L Est GFR ( Amer) > 60 Est GFR (Non-Af Amer) > 60 POC Glucose (mg/dL) Random Glucose 189 H Calcium 9.2 Ferritin Total Bilirubin 1.2 Direct Bilirubin AST 66 H ALT 70 H Alkaline Phosphatase 102 Ammonia Total Protein 6.1 L Albumin 2.9 L Globulin 3.1 Albumin/Globulin Ratio 0.9 L Vitamin B12 Folate Urine Color Urine Clarity Urine pH Ur Specific [place] Urine Protein Urine Glucose (UA) Urine Ketones Urine Blood Urine Nitrate Urine Bilirubin Urine Urobilinogen Ur Leukocyte Esterase Urine WBC (Auto) Calcium Oxalate Crystal Urine Opiates Screen Negative Urine Methadone Screen Negative Ur Barbiturates Screen Negative Ur Phencyclidine Scrn Negative Ur Amphetamines Screen Negative U Benzodiazepines Scrn Positive U Oth Cocaine Metabols Negative U Cannabinoids Screen Negative Blood Type Antibody Screen Antibody Identification 05/30/18 05/30/18 05/30/18 15:32 15:32 16:29 WBC RBC Hgb Hct MCV MCH MCHC RDW Plt Count MPV Neut % (Auto) Lymph % (Auto) Wells % (Auto) Eos % (Auto) Baso % (Auto) Neut # (Auto) Lymph # (Auto) Wells # (Auto) Eos # (Auto) Baso # (Auto) Neutrophils % (Manual) Lymphocytes % (Manual) Monocytes % (Manual) Nucleated RBC % Platelet Estimate Hypochromasia (manual) Poikilocytosis (manual Anisocytosis (manual) Target Cells Tear Drop Cells Retic Count PT 14.3 H INR 1.3 Sodium Potassium Chloride Carbon Dioxide Anion Gap BUN Creatinine Est GFR ( Amer) Est GFR (Non-Af Amer) POC Glucose (mg/dL) Random Glucose Calcium Ferritin Total Bilirubin Direct Bilirubin AST ALT Alkaline Phosphatase Ammonia 144 H D Total Protein Albumin Globulin Albumin/Globulin Ratio Vitamin B12 Folate Urine Color Urine Clarity Urine pH Ur Specific [place] Urine Protein Urine Glucose (UA) Urine Ketones Urine Blood Urine Nitrate Urine Bilirubin Urine Urobilinogen Ur Leukocyte Esterase Urine WBC (Auto) Calcium Oxalate Crystal Urine Opiates Screen Urine Methadone Screen Ur Barbiturates Screen Ur Phencyclidine Scrn Ur Amphetamines Screen U Benzodiazepines Scrn U Oth Cocaine Metabols U Cannabinoids Screen Blood Type A POSITIVE Antibody Screen Positive Antibody Identification Anti Imelda 05/30/18 16:37 WBC RBC Hgb Hct MCV MCH MCHC RDW Plt Count MPV Neut % (Auto) Lymph % (Auto) Wells % (Auto) Eos % (Auto) Baso % (Auto) Neut # (Auto) Lymph # (Auto) Wells # (Auto) Eos # (Auto) Baso # (Auto) Neutrophils % (Manual) Lymphocytes % (Manual) Monocytes % (Manual) Nucleated RBC % Platelet Estimate Hypochromasia (manual) Poikilocytosis (manual Anisocytosis (manual) Target Cells Tear Drop Cells Retic Count PT INR Sodium Potassium Chloride Carbon Dioxide Anion Gap BUN Creatinine Est GFR ( Amer) Est GFR (Non-Af Amer) POC Glucose (mg/dL) 208 H Random Glucose Calcium Ferritin Total Bilirubin Direct Bilirubin AST ALT Alkaline Phosphatase Ammonia Total Protein Albumin Globulin Albumin/Globulin Ratio Vitamin B12 Folate Urine Color Urine Clarity Urine pH Ur Specific [place] Urine Protein Urine Glucose (UA) Urine Ketones Urine Blood Urine Nitrate Urine Bilirubin Urine Urobilinogen Ur Leukocyte Esterase Urine WBC (Auto) Calcium Oxalate Crystal Urine Opiates Screen Urine Methadone Screen Ur Barbiturates Screen Ur Phencyclidine Scrn Ur Amphetamines Screen U Benzodiazepines Scrn U Oth Cocaine Metabols U Cannabinoids Screen Blood Type Antibody Screen Antibody Identification Assessment & Plan - Assessment and Plan (Free Text) Assessment: 67 year old female with 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 Active treatment of decompensated alcoholic cirrhosis 2/2 suspected upper GI bleed, COPD exacerbation, and chest pain. Endorses prior EGD two years ago at [facility] [place] for vomiting blood with unknown results. Denies prior colonoscopy. Plan: -MELD 10 DF 5.3 -obtain cardiac clearance -rule out PE with CT PE protocol -hold anticoagulation for possible EGD 04/[address] and cardiology recommendations reviewed -NPO after midnight -PPI drip and octreotide drip -trend H/H -attempt to obtain diagnostic paracentesis with fluid analysis to rule out SBP -antibiotic for SBP prophylaxis -blood/urine cultures -U/S with Doppler -will follow clinical course <Bharath Umanzor - Last Filed: 05/30/18 19:49> Meds - Medications Medications: Current Medications Albuterol (Ventolin Hfa 90 Mcg/Actuation (8 G)) 2 puff IH Q6 PRN PRN Reason: Shortness of Breath Albuterol/Ipratropium (Duoneb 3 Mg/0.5 Mg (3 Ml) Ud) 3 ml INH RQ6 [facility] Last Admin: 05/30/18 14:00 Dose: 3 ml Alprazolam (Xanax) 0.5 mg PO BID [facility] Last Admin: 05/30/18 18:12 Dose: 0.5 mg Chlordiazepoxide (Librium) 50 mg PO Q6H PRN PRN Reason: Alcohol Withdrawal Last Admin: 05/30/18 00:24 Dose: 50 mg Dextrose (Dextrose 50% Inj) 0 ml IV STAT PRN; Protocol PRN Reason: Hypoglycemia Protocol Dextrose (Glutose 15) 0 gm PO ONCE PRN; Protocol PRN Reason: Hypoglycemia Protocol Diphenhydramine HCl (Benadryl) 25 mg PO Q8 PRN PRN Reason: Allergy symptoms Last Admin: 05/29/18 21:23 Dose: 25 mg Enalapril Maleate (Vasotec) 2.5 mg PO DAILY [facility] Last Admin: 05/30/18 09:44 Dose: 2.5 mg Glucagon (Glucagen Diagnostic Kit) 0 mg IM STAT PRN; Protocol PRN Reason: Hypoglycemia Protocol Azithromycin (Zithromax 500mg In Ns Addvantage) 500 mg in 250 mls @ 167 mls/hr IVPB DAILY [facility] PRN Reason: Protocol Last Admin: 05/30/18 09:50 Dose: 167 mls/hr Dextrose (Dextrose 5% In Water 1000 Ml) 1,000 mls @ 0 mls/hr IV .Q0M PRN; Protocol; Per Protocol PRN Reason: Hypoglycemia Protocol Octreotide Acetate 1,250 mcg/ (Sodium Chloride) 252.5 mls @ 5.05 mls/hr IV .Q24H [facility]; 25 MCG/HR PRN Reason: Protocol Last Admin: 05/30/18 17:08 Dose: 5.05 mls/hr Pantoprazole Sodium 80 mg/ (Sodium Chloride) 100 mls @ 10 mls/hr IVPB .Q10H [facility] PRN Reason: 8 MG/HR Last Admin: 05/30/18 18:59 Dose: 10 mls/hr Insulin Human Regular (Novolin R) 0 unit SC ACHS [facility] PRN Reason: Protocol Last Admin: 05/30/18 18:13 Dose: 3 unit Lorazepam (Ativan) 0.5 mg IVP Q12 PRN PRN Reason: Anxiety Last Admin: 05/30/18 02:00 Dose: 0.5 mg Losartan Potassium (Cozaar) 25 mg PO DAILY [facility] Last Admin: 05/30/18 09:44 Dose: 25 mg Metformin HCl (Glucophage) 500 mg PO BID [facility] Last Admin: 05/30/18 18:12 Dose: 500 mg Methylprednisolone (Solu-Medrol) 40 mg IVPB Q8 [facility] Last Admin: 05/30/18 13:26 Dose: 40 mg Montelukast Sodium (Singulair) 10 mg PO HS [facility] Last Admin: 05/29/18 21:23 Dose: 10 mg Ondansetron HCl (Zofran Inj) 4 mg IVP Q8 PRN PRN Reason: Nausea/Vomiting Last Admin: 05/28/18 17:09 Dose: 4 mg Sertraline HCl (Zoloft) 50 mg PO DAILY [facility] Last Admin: 05/30/18 09:44 Dose: 50 mg Spironolactone (Aldactone) 12.5 mg PO BID [facility] Last Admin: 05/30/18 18:12 Dose: 12.5 mg Thiamine HCl (Vitamin B1 Tab) 100 mg PO DAILY [facility] Last Admin: 05/30/18 09:44 Dose: 100 mg Tramadol HCl (Ultram) 50 mg PO Q6H PRN PRN Reason: Pain, moderate (4-7) Last Admin: 05/28/18 17:09 Dose: 50 mg Trazodone HCl (Desyrel) 50 mg PO [facility] Results - Vital Signs Recent Vital Signs: Last Vital Signs Temp 98.3 F 05/30/18 15:30 Pulse 101 H 05/30/18 15:30 Resp 18 05/30/18 15:30 BP 107/60 05/30/18 15:30 Pulse Ox 97 05/30/18 15:30 - Labs Result Diagrams: 05/30/18 15:32 05/30/18 15:32 Labs: Laboratory Results - last 24 hr 05/29/18 05/30/18 05/30/18 20:56 06:13 07:13 WBC 7.3 RBC 2.70 L Hgb 8.5 L D Hct 25.1 L MCV 93.0 D MCH 31.4 H MCHC 33.8 RDW 22.1 H Plt Count 83 L D MPV 9.7 Neut % (Auto) 87.3 H Lymph % (Auto) 7.8 L Wells % (Auto) 4.7 Eos % (Auto) 0.0 Baso % (Auto) 0.2 Neut # (Auto) 6.4 Lymph # (Auto) 0.6 L [place] # (Auto) 0.3 Eos # (Auto) 0.0 Baso # (Auto) 0.0 Neutrophils % (Manual) 89 H Lymphocytes % (Manual) 8 L Monocytes % (Manual) 3 Nucleated RBC % Platelet Estimate Decreased L Hypochromasia (manual) Moderate Poikilocytosis (manual Slight Anisocytosis (manual) Slight Target Cells Moderate Tear Drop Cells Slight Retic Count 2.6 H PT INR Sodium Potassium Chloride Carbon Dioxide Anion Gap BUN Creatinine Est GFR ( Amer) Est GFR (Non-Af Amer) POC Glucose (mg/dL) 186 H 195 H Random Glucose Calcium Ferritin Total Bilirubin Direct Bilirubin AST ALT Alkaline Phosphatase Ammonia Total Protein Albumin Globulin Albumin/Globulin Ratio Vitamin B12 Folate Urine Color Urine Clarity Urine pH Ur Specific [place] Urine Protein Urine Glucose (UA) Urine Ketones Urine Blood Urine Nitrate Urine Bilirubin Urine Urobilinogen Ur Leukocyte Esterase Urine WBC (Auto) Calcium Oxalate Crystal Urine Opiates Screen Urine Methadone Screen Ur Barbiturates Screen Ur Phencyclidine Scrn Ur Amphetamines Screen U Benzodiazepines Scrn U Oth Cocaine Metabols U Cannabinoids Screen Blood Type Antibody Screen Antibody Identification 05/30/18 05/30/18 05/30/18 07:13 11:03 12:19 WBC RBC Hgb Hct MCV MCH MCHC RDW Plt Count MPV Neut % (Auto) Lymph % (Auto) Wells % (Auto) Eos % (Auto) Baso % (Auto) Neut # (Auto) Lymph # (Auto) Wells # (Auto) Eos # (Auto) Baso # (Auto) Neutrophils % (Manual) Lymphocytes % (Manual) Monocytes % (Manual) Nucleated RBC % Platelet Estimate Hypochromasia (manual) Poikilocytosis (manual Anisocytosis (manual) Target Cells Tear Drop Cells Retic Count PT INR Sodium 137 Potassium 4.2 Chloride 102 Carbon Dioxide 30 Anion Gap 10 BUN 22 H Creatinine 0.6 L Est GFR ( Amer) > 60 Est GFR (Non-Af Amer) > 60 POC Glucose (mg/dL) 353 H Random Glucose 196 H Calcium 9.3 Ferritin 58.0 Total Bilirubin 1.3 Direct Bilirubin 0.7 H AST 75 H D ALT 76 H D Alkaline Phosphatase 113 Ammonia Total Protein 6.0 L Albumin 2.8 L Globulin 3.2 Albumin/Globulin Ratio 0.9 L Vitamin B12 443 Folate 10.7 Urine Color Yellow Urine Clarity Clear Urine pH 7.0 Ur Specific [place] 1.015 Urine Protein Negative Urine Glucose (UA) Normal Urine Ketones Negative Urine Blood Negative Urine Nitrate Negative Urine Bilirubin Negative Urine Urobilinogen 2.0 H Ur Leukocyte Esterase Neg Urine WBC (Auto) 1 Calcium Oxalate Crystal Few H Urine Opiates Screen Urine Methadone Screen Ur Barbiturates Screen Ur Phencyclidine Scrn Ur Amphetamines Screen U Benzodiazepines Scrn U Oth Cocaine Metabols U Cannabinoids Screen Blood Type Antibody Screen Antibody Identification 05/30/18 05/30/18 05/30/18 12:19 15:32 15:32 WBC 8.5 RBC 2.56 L Hgb 8.0 L Hct 24.3 L MCV 95.1 D MCH 31.3 H MCHC 32.9 L RDW 22.3 H Plt Count 84 L MPV 10.3 Neut % (Auto) 90.1 H Lymph % (Auto) 6.0 L Wells % (Auto) 3.8 Eos % (Auto) 0.0 Baso % (Auto) 0.1 Neut # (Auto) 7.6 H Lymph # (Auto) 0.5 L [place] # (Auto) 0.3 Eos # (Auto) 0.0 Baso # (Auto) 0.0 Neutrophils % (Manual) 92 H Lymphocytes % (Manual) 6 L Monocytes % (Manual) 2 Nucleated RBC % 1 H Platelet Estimate Decreased L Hypochromasia (manual) Slight Poikilocytosis (manual Slight Anisocytosis (manual) Slight Target Cells Slight Tear Drop Cells Retic Count PT INR Sodium 137 Potassium 4.3 Chloride 103 Carbon Dioxide 26 Anion Gap 12 BUN 24 H Creatinine 0.5 L Est GFR ( Amer) > 60 Est GFR (Non-Af Amer) > 60 POC Glucose (mg/dL) Random Glucose 189 H Calcium 9.2 Ferritin Total Bilirubin 1.2 Direct Bilirubin AST 66 H ALT 70 H Alkaline Phosphatase 102 Ammonia Total Protein 6.1 L Albumin 2.9 L Globulin 3.1 Albumin/Globulin Ratio 0.9 L Vitamin B12 Folate Urine Color Urine Clarity Urine pH Ur Specific [place] Urine Protein Urine Glucose (UA) Urine Ketones Urine Blood Urine Nitrate Urine Bilirubin Urine Urobilinogen Ur Leukocyte Esterase Urine WBC (Auto) Calcium Oxalate Crystal Urine Opiates Screen Negative Urine Methadone Screen Negative Ur Barbiturates Screen Negative Ur Phencyclidine Scrn Negative Ur Amphetamines Screen Negative U Benzodiazepines Scrn Positive U Oth Cocaine Metabols Negative U Cannabinoids Screen Negative Blood Type Antibody Screen Antibody Identification 05/30/18 05/30/18 05/30/18 15:32 15:32 16:29 WBC RBC Hgb Hct MCV MCH MCHC RDW Plt Count MPV Neut % (Auto) Lymph % (Auto) Wells % (Auto) Eos % (Auto) Baso % (Auto) Neut # (Auto) Lymph # (Auto) Wells # (Auto) Eos # (Auto) Baso # (Auto) Neutrophils % (Manual) Lymphocytes % (Manual) Monocytes % (Manual) Nucleated RBC % Platelet Estimate Hypochromasia (manual) Poikilocytosis (manual Anisocytosis (manual) Target Cells Tear Drop Cells Retic Count PT 14.3 H INR 1.3 Sodium Potassium Chloride Carbon Dioxide Anion Gap BUN Creatinine Est GFR ( Amer) Est GFR (Non-Af Amer) POC Glucose (mg/dL) Random Glucose Calcium Ferritin Total Bilirubin Direct Bilirubin AST ALT Alkaline Phosphatase Ammonia 144 H D Total Protein Albumin Globulin Albumin/Globulin Ratio Vitamin B12 Folate Urine Color Urine Clarity Urine pH Ur Specific [place] Urine Protein Urine Glucose (UA) Urine Ketones Urine Blood Urine Nitrate Urine Bilirubin Urine Urobilinogen Ur Leukocyte Esterase Urine WBC (Auto) Calcium Oxalate Crystal Urine Opiates Screen Urine Methadone Screen Ur Barbiturates Screen Ur Phencyclidine Scrn Ur Amphetamines Screen U Benzodiazepines Scrn U Oth Cocaine Metabols U Cannabinoids Screen Blood Type A POSITIVE Antibody Screen Positive Antibody Identification Anti Imelda 05/30/18 16:37 WBC RBC Hgb Hct MCV MCH MCHC RDW Plt Count MPV Neut % (Auto) Lymph % (Auto) Wells % (Auto) Eos % (Auto) Baso % (Auto) Neut # (Auto) Lymph # (Auto) Wells # (Auto) Eos # (Auto) Baso # (Auto) Neutrophils % (Manual) Lymphocytes % (Manual) Monocytes % (Manual) Nucleated RBC % Platelet Estimate Hypochromasia (manual) Poikilocytosis (manual Anisocytosis (manual) Target Cells Tear Drop Cells Retic Count PT INR Sodium Potassium Chloride Carbon Dioxide Anion Gap BUN Creatinine Est GFR ( Amer) Est GFR (Non-Af Amer) POC Glucose (mg/dL) 208 H Random Glucose Calcium Ferritin Total Bilirubin Direct Bilirubin AST ALT Alkaline Phosphatase [place] Total Protein Albumin Globulin Albumin/Globulin Ratio Vitamin B12 Folate Urine Color Urine Clarity Urine pH Ur Specific [place] Urine Protein Urine Glucose (UA) Urine Ketones Urine Blood Urine Nitrate Urine Bilirubin Urine Urobilinogen Ur Leukocyte Esterase Urine WBC (Auto) Calcium Oxalate Crystal Urine Opiates Screen Urine Methadone Screen Ur Barbiturates Screen Ur Phencyclidine Scrn Ur Amphetamines Screen U Benzodiazepines Scrn U Oth Cocaine Metabols U Cannabinoids Screen Blood Type Antibody Screen Antibody Identification Attending/Attestation - Attestation I have personally seen and examined this patient.: Yes I have fully participated in the care of the patient.: Yes I have reviewed all pertinent clinical information: Yes Notes (Text): 05/30/18 19:43 I have seen and examined patient with GI fellow. Agree with above documentation with the following additions. In brief, this is a 67 year old female with history of ETOH cirrhosis, DVT/PE non-compliant with anti- coagulation therapy, COPD, HTN, DM, bipolar disorder, who presents to hospital with altered mental status secondary to ETOH intoxication. GI called for evaluation of melena which she had one episode today. She admits to consuming 3 -4 ETOH drinks per day and is currently seen sitting at bedside and appears comfortable, asking for her diet to be advanced. She denies nausea, vomiting, fever/chills, weight loss, or abdominal pain. She does note new areas of ecchymosis on upper extremities this past week. She had an EGD 2 years ago ( unknown results), no prior colonoscopy. ETOH decompensated cirrhosis - MELD 10 history of DVT/PE COPD DM/HTN Bipolar disorder Anemia, melena - Clear liquid diet as tolerated - H/H stable, continue to monitor - Maintain PPI and octreotide infusion therapies - Given complaint of pleuritic chest pain, suggest CT chest PE protocol - Cardiology note reviewed, follow up recommendations - If chest CT unremarkable, will plan for EGD evaluation tomorrow to rule out upper GI bleeding. Will continue to monitor patient clinical course, NPO after midnight.
[2018-05-30] MEDS ORDERED: Iodixanol 320 MG/ML 100 ML BOTTLE IV ONE (19:18)
--- NOTE | 2018-05-30 20:24 | PN ---
Copied To: Brandon Mcmahon MD Attending MD: Brandon Mcmahon MD DATE: 05/30/2018 SUBJECTIVE: The patient was noted to have significant bruising in the 4 extremities. I did discontinue aspirin and Plavix as well as Eliquis. The patient denies any chest pain. According to review of the CT angio dating back to 2015, no evidence of pulmonary embolus, and the patient did have an IVC filter. PHYSICAL EXAMINATION: VITAL SIGNS: Blood pressure 131/81, heart rate 97, temperature 98.1, and respirations 20. HEENT: Pale conjunctivae. CHEST: Minimal rhonchi. HEART: S1 and S2, regular. EXTREMITIES: Significant bruising and ecchymosis. LABORATORY DATA: Hemoglobin and hematocrit are 8.5 and 25.1, white count 7.3, and platelet count 83,000, which did drop from earlier 205,000. Today's SMA-7 is within normal limits except for glucose of 196. BUN and creatinine are 22 and 0.6. ASSESSMENT: 1. Status post alcohol intoxication. 2. Alcoholic liver disease. 3. Chronic obstructive lung disease. 4. Left bundle-branch block. 5. Thrombocytopenia. 6. Anemia with nearly 3 g drop in hemoglobin since admission. RECOMMENDATIONS: Continue 12.5 mg twice a day, Cozaar 25 mg once a day, metformin 500 mg twice a day, [place] 600 mg every 6 hours, Solu-Medrol 40 mg intravenously every 8 hours, Vasotec 2.5 mg once a day, thiamine 100 mg orally once a day, Zithromax 500 mg intravenously daily. The patient is off antiplatelet and anticoagulation for now and, in fact, in view of continued heavy alcohol abuse and numerous admissions for intoxication, long-term anticoagulation will not be advisable. Brandon Mcmahon MD
--- NOTE | 2018-05-30 20:59 | CP.PCM.PN ---
Subjective - Date & Time of Evaluation Date of Evaluation: 05/30/18 Time of Evaluation: 19:00 - Subjective Subjective: Feels tired Objective - Vital Signs/Intake and Output Vital Signs (last 24 hours): Temp Pulse Resp BP Pulse Ox 98.3 F 101 H 18 107/60 97 05/30/18 15:30 05/30/18 15:30 05/30/18 15:30 05/30/18 15:30 05/30/18 15:30 - Medications Medications: Current Medications Albuterol (Ventolin Hfa 90 Mcg/Actuation (8 G)) 2 puff IH Q6 PRN PRN Reason: Shortness of Breath Albuterol/Ipratropium (Duoneb 3 Mg/0.5 Mg (3 Ml) Ud) 3 ml INH RQ6 [facility] Last Admin: 05/30/18 14:00 Dose: 3 ml Alprazolam (Xanax) 0.5 mg PO BID [facility] Last Admin: 05/30/18 18:12 Dose: 0.5 mg Chlordiazepoxide (Librium) 50 mg PO Q6H PRN PRN Reason: Alcohol Withdrawal Last Admin: 05/30/18 00:24 Dose: 50 mg Dextrose (Dextrose 50% Inj) 0 ml IV STAT PRN; Protocol PRN Reason: Hypoglycemia Protocol Dextrose (Glutose 15) 0 gm PO ONCE PRN; Protocol PRN Reason: Hypoglycemia Protocol Diphenhydramine HCl (Benadryl) 25 mg PO Q8 PRN PRN Reason: Allergy symptoms Last Admin: 05/29/18 21:23 Dose: 25 mg Enalapril Maleate (Vasotec) 2.5 mg PO DAILY [facility] Last Admin: 05/30/18 09:44 Dose: 2.5 mg Glucagon (Glucagen Diagnostic Kit) 0 mg IM STAT PRN; Protocol PRN Reason: Hypoglycemia Protocol Azithromycin (Zithromax 500mg In Ns Addvantage) 500 mg in 250 mls @ 167 mls/hr IVPB DAILY [facility] PRN Reason: Protocol Last Admin: 05/30/18 09:50 Dose: 167 mls/hr Dextrose (Dextrose 5% In Water 1000 Ml) 1,000 mls @ 0 mls/hr IV .Q0M PRN; Protocol; Per Protocol PRN Reason: Hypoglycemia Protocol Octreotide Acetate 1,250 mcg/ (Sodium Chloride) 252.5 mls @ 5.05 mls/hr IV .Q24H [facility]; 25 MCG/HR PRN Reason: Protocol Last Admin: 05/30/18 17:08 Dose: 5.05 mls/hr Pantoprazole Sodium 80 mg/ (Sodium Chloride) 100 mls @ 10 mls/hr IVPB .Q10H [facility] PRN Reason: 8 MG/HR Last Admin: 05/30/18 18:59 Dose: 10 mls/hr Insulin Human Regular (Novolin R) 0 unit SC ACHS [facility] PRN Reason: Protocol Last Admin: 05/30/18 18:13 Dose: 3 unit Lorazepam (Ativan) 0.5 mg IVP Q12 PRN PRN Reason: Anxiety Last Admin: 05/30/18 02:00 Dose: 0.5 mg Losartan Potassium (Cozaar) 25 mg PO DAILY [facility] Last Admin: 05/30/18 09:44 Dose: 25 mg Metformin HCl (Glucophage) 500 mg PO BID [facility] Last Admin: 05/30/18 18:12 Dose: 500 mg Methylprednisolone (Solu-Medrol) 40 mg IVPB Q8 [facility] Last Admin: 05/30/18 13:26 Dose: 40 mg Montelukast Sodium (Singulair) 10 mg PO HS [facility] Last Admin: 05/29/18 21:23 Dose: 10 mg Ondansetron HCl (Zofran Inj) 4 mg IVP Q8 PRN PRN Reason: Nausea/Vomiting Last Admin: 05/28/18 17:09 Dose: 4 mg Sertraline HCl (Zoloft) 50 mg PO DAILY [facility] Last Admin: 05/30/18 09:44 Dose: 50 mg Spironolactone (Aldactone) 12.5 mg PO BID [facility] Last Admin: 05/30/18 18:12 Dose: 12.5 mg Thiamine HCl (Vitamin B1 Tab) 100 mg PO DAILY [facility] Last Admin: 05/30/18 09:44 Dose: 100 mg Tramadol HCl (Ultram) 50 mg PO Q6H PRN PRN Reason: Pain, moderate (4-7) Last Admin: 05/28/18 17:09 Dose: 50 mg Trazodone HCl (Desyrel) 50 mg PO [facility] - Labs Labs: 05/30/18 15:32 05/30/18 15:32 PT 14.3 SECONDS (9.7-12.2) H 05/30/18 16:29 INR 1.3 05/30/18 16:29 APTT 26 SECONDS (21-34) 05/27/18 19:52 - Head Exam Head Exam: ATRAUMATIC - Eye Exam Eye Exam: Normal appearance - ENT Exam ENT Exam: Mucous Membranes Dry - Respiratory Exam Respiratory Exam: NORMAL BREATHING PATTERN - Cardiovascular Exam Cardiovascular Exam: +S1, +S2 - GI/Abdominal Exam GI & Abdominal Exam: Normal Bowel Sounds Assessment and Plan (1) Anemia Assessment & Plan: GI evaluation ? varicel bleeding borderline iron stores; will start IV iron liver cirrhosis Status: Acute (2) Thrombocytopenia Assessment & Plan: liver cirrhosis Status: Acute
--- NOTE | 2018-05-30 21:50 | CP.PCM.PN ---
Subjective - Date & Time of Evaluation Date of Evaluation: 05/30/18 Time of Evaluation: 09:30 - Subjective Subjective: clinically same Objective - Vital Signs/Intake and Output Vital Signs (last 24 hours): Temp Pulse Resp BP Pulse Ox 98.3 F 101 H 18 107/60 97 05/30/18 15:30 05/30/18 15:30 05/30/18 15:30 05/30/18 15:30 05/30/18 15:30 - Medications Medications: Current Medications Albuterol (Ventolin Hfa 90 Mcg/Actuation (8 G)) 2 puff IH Q6 PRN PRN Reason: Shortness of Breath Albuterol/Ipratropium (Duoneb 3 Mg/0.5 Mg (3 Ml) Ud) 3 ml INH RQ6 [facility] Last Admin: 05/30/18 14:00 Dose: 3 ml Alprazolam (Xanax) 0.5 mg PO BID [facility] Last Admin: 05/30/18 18:12 Dose: 0.5 mg Chlordiazepoxide (Librium) 50 mg PO Q6H PRN PRN Reason: Alcohol Withdrawal Last Admin: 05/30/18 00:24 Dose: 50 mg Dextrose (Dextrose 50% Inj) 0 ml IV STAT PRN; Protocol PRN Reason: Hypoglycemia Protocol Dextrose (Glutose 15) 0 gm PO ONCE PRN; Protocol PRN Reason: Hypoglycemia Protocol Diphenhydramine HCl (Benadryl) 25 mg PO Q8 PRN PRN Reason: Allergy symptoms Last Admin: 05/29/18 21:23 Dose: 25 mg Enalapril Maleate (Vasotec) 2.5 mg PO DAILY [facility] Last Admin: 05/30/18 09:44 Dose: 2.5 mg Glucagon (Glucagen Diagnostic Kit) 0 mg IM STAT PRN; Protocol PRN Reason: Hypoglycemia Protocol Azithromycin (Zithromax 500mg In Ns Addvantage) 500 mg in 250 mls @ 167 mls/hr IVPB DAILY [facility] PRN Reason: Protocol Last Admin: 05/30/18 09:50 Dose: 167 mls/hr Dextrose (Dextrose 5% In Water 1000 Ml) 1,000 mls @ 0 mls/hr IV .Q0M PRN; Protocol; Per Protocol PRN Reason: Hypoglycemia Protocol Octreotide Acetate 1,250 mcg/ (Sodium Chloride) 252.5 mls @ 5.05 mls/hr IV .Q24H [facility]; 25 MCG/HR PRN Reason: Protocol Last Admin: 05/30/18 17:08 Dose: 5.05 mls/hr Pantoprazole Sodium 80 mg/ (Sodium Chloride) 100 mls @ 10 mls/hr IVPB .Q10H [facility] PRN Reason: 8 MG/HR Last Admin: 05/30/18 18:59 Dose: 10 mls/hr Ferric Sodium Gluconate Complex 125 mg/ Sodium Chloride 110 mls @ 110 mls/hr IVPB Q24H [facility] Stop: 06/08/18 10:01 Insulin Human Regular (Novolin R) 0 unit SC ACHS [facility] PRN Reason: Protocol Last Admin: 05/30/18 21:12 Dose: Not Given Lorazepam (Ativan) 0.5 mg IVP Q12 PRN PRN Reason: Anxiety Last Admin: 05/30/18 02:00 Dose: 0.5 mg Losartan Potassium (Cozaar) 25 mg PO DAILY [facility] Last Admin: 05/30/18 09:44 Dose: 25 mg Metformin HCl (Glucophage) 500 mg PO BID [facility] Last Admin: 05/30/18 18:12 Dose: 500 mg Methylprednisolone (Solu-Medrol) 40 mg IVPB Q8 [facility] Last Admin: 05/30/18 21:30 Dose: 40 mg Montelukast Sodium (Singulair) 10 mg PO HS [facility] Last Admin: 05/30/18 21:30 Dose: 10 mg Ondansetron HCl (Zofran Inj) 4 mg IVP Q8 PRN PRN Reason: Nausea/Vomiting Last Admin: 05/28/18 17:09 Dose: 4 mg Sertraline HCl (Zoloft) 50 mg PO DAILY [facility] Last Admin: 05/30/18 09:44 Dose: 50 mg Spironolactone (Aldactone) 12.5 mg PO BID [facility] Last Admin: 05/30/18 18:12 Dose: 12.5 mg Thiamine HCl (Vitamin B1 Tab) 100 mg PO DAILY [facility] Last Admin: 05/30/18 09:44 Dose: 100 mg Tramadol HCl (Ultram) 50 mg PO Q6H PRN PRN Reason: Pain, moderate (4-7) Last Admin: 05/28/18 17:09 Dose: 50 mg Trazodone HCl (Desyrel) 50 mg PO HS [facility] Last Admin: 05/30/18 21:30 Dose: 50 mg - Labs Labs: 05/30/18 15:32 05/30/18 15:32 PT 14.3 SECONDS (9.7-12.2) H 05/30/18 16:29 INR 1.3 05/30/18 16:29 APTT 26 SECONDS (21-34) 05/27/18 19:52 - Constitutional Appears: Well - Head Exam Head Exam: ATRAUMATIC, NORMAL INSPECTION, NORMOCEPHALIC - Eye Exam Eye Exam: EOMI, Normal appearance, PERRL Pupil Exam: NORMAL ACCOMODATION, PERRL - ENT Exam ENT Exam: Mucous Membranes Moist, Normal Exam - Neck Exam Neck Exam: Full ROM, Normal Inspection. absent: Lymphadenopathy - Respiratory Exam Respiratory Exam: Decreased Breath Sounds - Cardiovascular Exam Cardiovascular Exam: REGULAR RHYTHM, +S1, +S2 - GI/Abdominal Exam GI & Abdominal Exam: Soft, Diminished Bowel Sounds - Rectal Exam Rectal Exam: Deferred
[2018-05-31] MEDS: Albuterol-Ipratrop 3 mg / 0.5 (3 ml) UD INH SCH ×4 (01:20→20:12)
[2018-05-31] MEDS: MethylPREDNISolone 40 mg Vial IVPB SCH ×3 (05:12→21:48)
[2018-05-31] MEDS: Pantoprazole 80 MG in Sodium Chloride 0.9% 100 ML IVPB SCH ×3 (05:39→17:24)
[2018-05-31] MEDS: (Novolin R) Insulin Human Regular 100 units/ml vial SC SCH ×4 (08:37→21:49)
--- NOTE | 2018-05-31 09:44 | CP.PCM.PN ---
<Alma Parra - Last Filed: 05/31/18 09:54> Subjective - Date & Time of Evaluation Date of Evaluation: 05/31/18 Time of Evaluation: 09:41 - Subjective Subjective: Gastroenterology Fellow/PGY6 Progress Note Patient resting comfortably. Admits to ongoing shortness of breath. Unchanged epigastric discomfort. No further episodes of melena. A 12-point review of systems negative except for as above. Objective - Vital Signs/Intake and Output Vital Signs (last 24 hours): Temp Pulse Resp BP Pulse Ox 98.3 F 99 H 14 94/61 L 100 05/31/18 08:00 05/31/18 08:00 05/31/18 08:00 05/31/18 08:00 05/31/18 08:00 - Medications Medications: Current Medications Albuterol (Ventolin Hfa 90 Mcg/Actuation (8 G)) 2 puff IH Q6 PRN PRN Reason: Shortness of Breath Albuterol/Ipratropium (Duoneb 3 Mg/0.5 Mg (3 Ml) Ud) 3 ml INH RQ6 [facility] Last Admin: 05/31/18 07:59 Dose: 3 ml Alprazolam (Xanax) 0.5 mg PO BID [facility] Last Admin: 05/30/18 18:12 Dose: 0.5 mg Chlordiazepoxide (Librium) 50 mg PO Q6H PRN PRN Reason: Alcohol Withdrawal Last Admin: 05/30/18 00:24 Dose: 50 mg Dextrose (Dextrose 50% Inj) 0 ml IV STAT PRN; Protocol PRN Reason: Hypoglycemia Protocol Dextrose (Glutose 15) 0 gm PO ONCE PRN; Protocol PRN Reason: Hypoglycemia Protocol Diphenhydramine HCl (Benadryl) 25 mg PO Q8 PRN PRN Reason: Allergy symptoms Last Admin: 05/29/18 21:23 Dose: 25 mg Enalapril Maleate (Vasotec) 2.5 mg PO DAILY [facility] Last Admin: 05/30/18 09:44 Dose: 2.5 mg Glucagon (Glucagen Diagnostic Kit) 0 mg IM STAT PRN; Protocol PRN Reason: Hypoglycemia Protocol Azithromycin (Zithromax 500mg In Ns Addvantage) 500 mg in 250 mls @ 167 mls/hr IVPB DAILY [facility] PRN Reason: Protocol Last Admin: 05/30/18 09:50 Dose: 167 mls/hr Dextrose (Dextrose 5% In Water 1000 Ml) 1,000 mls @ 0 mls/hr IV .Q0M PRN; Protocol; Per Protocol PRN Reason: Hypoglycemia Protocol Octreotide Acetate 1,250 mcg/ (Sodium Chloride) 252.5 mls @ 5.05 mls/hr IV .Q24H [facility]; 25 MCG/HR PRN Reason: Protocol Last Admin: 05/30/18 17:08 Dose: 5.05 mls/hr Pantoprazole Sodium 80 mg/ (Sodium Chloride) 100 mls @ 10 mls/hr IVPB .Q10H [facility] PRN Reason: 8 MG/HR Last Admin: 05/31/18 05:39 Dose: 10 mls/hr Ferric Sodium Gluconate Complex 125 mg/ Sodium Chloride 110 mls @ 110 mls/hr IVPB Q24H [facility] Stop: 06/08/18 10:01 Insulin Human Regular (Novolin R) 0 unit SC ACHS [facility] PRN Reason: Protocol Last Admin: 05/31/18 08:37 Dose: 3 unit Losartan Potassium (Cozaar) 25 mg PO DAILY [facility] Last Admin: 05/30/18 09:44 Dose: 25 mg Metformin HCl (Glucophage) 500 mg PO BID [facility] Last Admin: 05/30/18 18:12 Dose: 500 mg Methylprednisolone (Solu-Medrol) 40 mg IVPB Q8 [facility] Last Admin: 05/31/18 05:12 Dose: 40 mg Montelukast Sodium (Singulair) 10 mg PO HS [facility] Last Admin: 05/30/18 21:30 Dose: 10 mg Ondansetron HCl (Zofran Inj) 4 mg IVP Q8 PRN PRN Reason: Nausea/Vomiting Last Admin: 05/28/18 17:09 Dose: 4 mg Sertraline HCl (Zoloft) 50 mg PO DAILY [facility] Last Admin: 05/30/18 09:44 Dose: 50 mg Spironolactone (Aldactone) 12.5 mg PO BID [facility] Last Admin: 05/30/18 18:12 Dose: 12.5 mg Thiamine HCl (Vitamin B1 Tab) 100 mg PO DAILY [facility] Last Admin: 05/30/18 09:44 Dose: 100 mg Tramadol HCl (Ultram) 50 mg PO Q6H PRN PRN Reason: Pain, moderate (4-7) Last Admin: 05/28/18 17:09 Dose: 50 mg Trazodone HCl (Desyrel) 50 mg PO HS [facility] Last Admin: 05/30/18 21:30 Dose: 50 mg - Labs Labs: 05/30/18 15:32 05/30/18 15:32 PT 14.3 SECONDS (9.7-12.2) H 05/30/18 16:29 INR 1.3 05/30/18 16:29 APTT 26 SECONDS (21-34) 05/27/18 19:52 - Constitutional Appears: Non-toxic, No Acute Distress - Head Exam Head Exam: ATRAUMATIC, NORMOCEPHALIC - Eye Exam Eye Exam: EOMI, PERRL, Scleral icterus Pupil Exam: PERRL. absent: Miosis, Mydriatic - ENT Exam ENT Exam: Mucous Membranes Moist, Normal Oropharynx - Neck Exam Neck Exam: Full ROM, Normal Inspection - Respiratory Exam Respiratory Exam: Wheezes. absent: Rales, Rhonchi - Cardiovascular Exam Cardiovascular Exam: RRR, +S1, +S2. absent: Gallop, Rubs - GI/Abdominal Exam GI & Abdominal Exam: Soft, Tenderness, Normal Bowel Sounds. absent: Distended, Firm, Guarding, Rigid, Organomegaly, Rebound Additional comments: mild epigastric tenderness to palpation - Neurological Exam Neurological Exam: Alert, Awake, Oriented x3 Additional comments: no asterixis - Psychiatric Exam Psychiatric exam: Normal Affect, Normal Mood - Skin Skin Exam: Dry, Intact, Normal Color, Warm Assessment and Plan - Assessment and Plan (Free Text) Assessment: 67 year old female with 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 Active treatment of COPD exacerbation and decompensated alcoholic cirrhosis 2/2 suspected upper GI bleed. Endorses prior EGD two years ago at [facility] for vomiting blood with unknown results. Denies prior colonoscopy. Plan: -05/30 MELD 10 DF 5.3, labs pending for today -follow up CT PE protocol and re-assess respiratory status prior to considering possible EGD today -NPO -continue PPI drip and octreotide drip -trend H/H, Hb goal 6-7 -follow up repeat U/S -if ascites present-plan for diagnostic/therapeutic paracentesis with fluid analysis to rule out SBP -continue Bactrim SBP prophylaxis given fluoroquinolone/cephalosporin allergy -follow up blood/urine cultures -follow up U/S with Doppler -will follow clinical course <Bharath Umanzor - Last Filed: 05/31/18 14:15> Objective - Vital Signs/Intake and Output Vital Signs (last 24 hours): Temp Pulse Resp BP Pulse Ox 98.3 F 99 H 14 94/61 L 100 05/31/18 08:00 05/31/18 08:00 05/31/18 08:00 05/31/18 08:00 05/31/18 08:00 - Medications Medications: Current Medications Albuterol (Ventolin Hfa 90 Mcg/Actuation (8 G)) 2 puff IH Q6 PRN PRN Reason: Shortness of Breath Albuterol/Ipratropium (Duoneb 3 Mg/0.5 Mg (3 Ml) Ud) 3 ml INH RQ6 [facility] Last Admin: 05/31/18 13:38 Dose: 3 ml Alprazolam (Xanax) 0.5 mg PO BID [facility] Last Admin: 05/31/18 10:08 Dose: 0.5 mg Chlordiazepoxide (Librium) 50 mg PO Q6H PRN PRN Reason: Alcohol Withdrawal Last Admin: 05/30/18 00:24 Dose: 50 mg Dextrose (Dextrose 50% Inj) 0 ml IV STAT PRN; Protocol PRN Reason: Hypoglycemia Protocol Dextrose (Glutose 15) 0 gm PO ONCE PRN; Protocol PRN Reason: Hypoglycemia Protocol Diphenhydramine HCl (Benadryl) 25 mg PO Q8 PRN PRN Reason: Allergy symptoms Last Admin: 05/29/18 21:23 Dose: 25 mg Enalapril Maleate (Vasotec) 2.5 mg PO DAILY [facility] Last Admin: 05/31/18 10:08 Dose: Not Given Glucagon (Glucagen Diagnostic Kit) 0 mg IM STAT PRN; Protocol PRN Reason: Hypoglycemia Protocol Azithromycin (Zithromax 500mg In Ns Addvantage) 500 mg in 250 mls @ 167 mls/hr IVPB DAILY [facility] PRN Reason: Protocol Last Admin: 05/31/18 10:07 Dose: 167 mls/hr Dextrose (Dextrose 5% In Water 1000 Ml) 1,000 mls @ 0 mls/hr IV .Q0M PRN; Protocol; Per Protocol PRN Reason: Hypoglycemia Protocol Octreotide Acetate 1,250 mcg/ (Sodium Chloride) 252.5 mls @ 5.05 mls/hr IV .Q24H [facility]; 25 MCG/HR PRN Reason: Protocol Last Admin: 05/30/18 17:08 Dose: 5.05 mls/hr Pantoprazole Sodium 80 mg/ (Sodium Chloride) 100 mls @ 10 mls/hr IVPB .Q10H [facility] PRN Reason: 8 MG/HR Last Admin: 05/31/18 05:39 Dose: 10 mls/hr Ferric Sodium Gluconate Complex 125 mg/ Sodium Chloride 110 mls @ 110 mls/hr IVPB Q24H [facility] Stop: 06/08/18 10:01 Last Admin: 05/31/18 11:07 Dose: 110 mls/hr Insulin Human Regular (Novolin R) 0 unit SC ACHS [facility] PRN Reason: Protocol Last Admin: 05/31/18 12:08 Dose: Not Given Losartan Potassium (Cozaar) 25 mg PO DAILY [facility] Last Admin: 05/31/18 10:08 Dose: 25 mg Metformin HCl (Glucophage) 500 mg PO BID [facility] Last Admin: 05/31/18 10:07 Dose: 500 mg Methylprednisolone (Solu-Medrol) 40 mg IVPB Q8 [facility] Last Admin: 05/31/18 05:12 Dose: 40 mg Montelukast Sodium (Singulair) 10 mg PO HS [facility] Last Admin: 05/30/18 21:30 Dose: 10 mg Ondansetron HCl (Zofran Inj) 4 mg IVP Q8 PRN PRN Reason: Nausea/Vomiting Last Admin: 05/28/18 17:09 Dose: 4 mg Sertraline HCl (Zoloft) 50 mg PO DAILY [facility] Last Admin: 05/31/18 10:09 Dose: 50 mg Spironolactone (Aldactone) 12.5 mg PO BID [facility] Last Admin: 05/31/18 10:07 Dose: 12.5 mg Thiamine HCl (Vitamin B1 Tab) 100 mg PO DAILY [facility] Last Admin: 05/31/18 10:08 Dose: 100 mg Tramadol HCl (Ultram) 50 mg PO Q6H PRN PRN Reason: Pain, moderate (4-7) Last Admin: 05/28/18 17:09 Dose: 50 mg Trazodone HCl (Desyrel) 50 mg PO HS [facility] Last Admin: 05/30/18 21:30 Dose: 50 mg - Labs Labs: 05/31/18 13:55 05/30/18 15:32 PT 13.9 SECONDS (9.7-12.2) H 05/31/18 13:55 INR 1.3 05/31/18 13:55 APTT 26 SECONDS (21-34) 05/27/18 19:52 Attending/Attestation - Attestation I have personally seen and examined this patient.: Yes I have fully participated in the care of the patient.: Yes I have reviewed all pertinent clinical information, including history, physical exam and plan: Yes Notes (Text): 05/31/18 14:12 I have seen and examined patient with GI fellow. No acute events overnight, she is seen sitting at side of bed resting comfortably, though she complains of pain on deep breathing. She denies nausea, vomiting, fever/chills. No recurrent episodes of melena noted. Tolerating PO liquids without difficulty. History of DVT/PE COPD Decompensated ETOH cirrhosis HTN / DM Biploar disorder - Clear liquid diet as tolerated - Awaiting for results from CT chest, r/o PE - COPD management as per pulmonary team - Continue with PPI and octreotide therapy - H/H stable, continue to monitor - Will tentatively plan for EGD tomorrow pending patient clinical progress, will continue to monitor. NPO after midnight.
[2018-05-31] MEDS ORDERED: Ferric Sodium Gluconat Complex 62.5 mg/5 ml Vial IVPB SCH (10:00)
[2018-05-31] MEDS: Azithromycin 500mg/250ML NS 500 MG/250 ML BAG IVPB SCH (10:07)
--- NOTE | 2018-05-31 10:59 | CT ---
Date of service: 05/30/2018 PROCEDURE: CT Chest with contrast (Pulmonary Angiogram) HISTORY: R/O PE COMPARISON: 05/30/2018. TECHNIQUE: Axial computed tomography images were obtained of the chest in the pulmonary arterial phase of enhancement. Coronal and sagittal reformatted images were created and reviewed. Intravenous contrast dose: 100 cc Visipaque 320 Radiation dose: Total exam DLP = 443.93 mGy-cm. This CT exam was performed using one or more of the following dose reduction techniques: Automated exposure control, adjustment of the mA and/or kV according to patient size, and/or use of iterative reconstruction technique. FINDINGS: PULMONARY ARTERIES: Unremarkable. No pulmonary embolism. AORTA: No acute findings. No thoracic aortic aneurysm. LUNGS: The lungs are well inflated. No nodule, mass or pulmonary consolidation. PLEURAL SPACES: No effusion or pneumothorax. HEART: No cardiomegaly. No significant pericardial effusion. LYMPH NODES: No lymphadenopathy. BONES, CHEST WALL: No fracture or destructive lesion OTHER FINDINGS: Unremarkable. IMPRESSION: No CT evidence for acute pulmonary embolism. No focal consolidation, pleural effusion or pneumothorax. A preliminary report was provided by [id number].
[2018-05-31] MEDS: Ferric Sodium Gluconat Complex 125 MG in Sodium Chloride 0.9% 100 ML IVPB SCH (11:07)
--- NOTE | 2018-05-31 12:38 | US ---
Date of service: 05/30/2018 HISTORY: evaluate for SBP, history cirrhosis COMPARISON: 03/29/2013. Abdominal ultrasound 05/09/2018 CT abdomen and pelvis TECHNIQUE: Sonographic evaluation of the abdomen. FINDINGS: LIVER: Measures 15.4 cm. Hepatopedal blood flow. Fatty infiltration manifest ultrasonographically as increased echogenicity of the liver parenchyma. Nodular contour to the liver consistent with cirrhosis. No interval change. GALLBLADDER: Status post cholecystectomy. No abnormality is seen in the gallbladder fossa. COMMON BILE DUCT: Measures 4.5 mm. No stones. No dilatation. PANCREAS: Unremarkable as visualized. No mass. No ductal dilatation. RIGHT KIDNEY: Measures 5.1 x 11.8cm. Normal echogenicity. No calculus, mass, or hydronephrosis. LEFT KIDNEY: Measures 4.9 x 11.9cm. Normal echogenicity. No calculus, mass, or hydronephrosis. SPLEEN: Normal in size and contour. No mass. Cephalocaudal length 10.7 cm AORTA: No aneurysmal dilatation. IVC: Unremarkable. OTHER FINDINGS: None. IMPRESSION: No acute findings related to/accounting for the clinical presentation. No significant interval change compared to the prior examination(s).
[2018-05-31 14:01] LABS: BASO % 0.1 % (0.0-2.0); HEMOGLOBIN 7.6 g/dL (11.0-16.0); LYMPH # 0.6 K/uL (1.0-4.3); LYMPH % 7.9 % (20.0-40.0); MEAN CELL VOLUME 94.7 fL (81.0-99.0); MEAN CORPUSCULAR HEMOGLOBIN 31.4 pg (27.0-31.0); MEAN CORPUSCULAR HGB CONC 33.2 g/dL (33.0-37.0); MEAN PLATELET VOLUME 9.6 fL (7.2-11.7); MONO # 0.3 K/uL (0.0-0.8); MONO % 3.6 % (0.0-10.0); NEUT # 6.9 K/uL (1.8-7.0); NEUT % 88.4 % (50.0-75.0); NRBC % 0.6 % (0.0-2.0); PLATELET COUNT 78 K/uL (130-400); RBC 2.41 Mil/uL (3.80-5.20); RED CELL DISTRIBUTION WIDTH 22.1 % (11.5-14.5); WHITE BLOOD COUNT 7.9 K/uL (4.8-10.8)
[2018-05-31 14:08] LABS: INR 1.3; PROTHROMBIN TIME 13.9 SECONDS (9.7-12.2)
[2018-05-31 14:29] LABS: ALT/SGPT 71 U/L (9-52); AST/SGOT 48 U/L (14-36); BLOOD UREA NITROGEN 16 mg/dL (7-17); CALCIUM 8.9 mg/dl (8.6-10.4); GFR NON-AFRICAN AMERICAN > 60
[2018-05-31 14:32] LABS: ANISOCYTOSIS MODERATE; LYMPHOCYTE 6 % (20-40); MONOCYTE 3 % (0-10); NEUTROPHIL 91 % (50-75); PLATELET ESTIMATE DECREASED (NORMAL); TOTAL CELLS COUNTED 100
[2018-05-31 14:33] LABS: HYPOCHROMIC SLIGHT
[2018-05-31 14:34] LABS: TARGET CELLS SLIGHT
--- NOTE | 2018-05-31 15:59 | PCM.PYCHPN ---
Psychiatric Progress Note - Psychiatric Progress Note Patient seen today, length of contact: 16 Patient Chief Complaint: I feel depressed Problems Identified/Issues Discussed: PGY-[address] Progress Note for Dr. Patterson. Patient was seen, chart reviewed, and case discussed with staff. Patient is compliant with medication without report of side effects. Patient complains of persistent depressed mood and anhedonia. Denies suicidal ideation, homicidal ideation, auditory and visual hallucinations. Supportive therapy and psychoeducation provided. Medication Change: No Medical Record Reviewed: Yes Mental Status Examination - Cognitive Function Orientation: Person, Place, Situation, Time Memory: Intact Attention: WNL Concentration: WNL Association: WNL Fund of Knowledge: WNL - Mood Mood: Depressed - Affect Affect: Flat - Speech Speech: Appropriate - Formal Thought Process Formal Thought Process: No Impairment - Suicidal Ideation Suicidal Ideation: No - Homicidal Ideation Homicidal Ideation: No Goal/Treatment Plan - Goal/Treatment Plan Need for Continued Stay: Severe depression anxiety, Discharge may exacerbated symptoms Progress Toward Problem(s) and Goals/Treatment Plan: Major Depressive Disorder, recurrent, severe Continue Sertraline 50mg PO daily as per PMD Trazodone 50mg PO HS All risks, benefits and alternatives of medications discussed, patient agreed and understood. Supportive therapy and psychoeducation Psychiatry will sign off. Please re-consult as necessary. Case discussed with Dr. Patterson
--- NOTE | 2018-05-31 19:28 | PN ---
DATE: 05/31/2018 SUBJECTIVE: The patient is oriented to place. She denies any shortness of breath. She complains of abdominal pain. PHYSICAL EXAMINATION: VITAL SIGNS: Blood pressure 94/61, heart rate 99, temperature 98.3, respirations 14. HEENT: Pale conjunctivae. CHEST: Clear. HEART: S1 and S2 regular. ABDOMEN: Soft. EXTREMITIES: Significant bruising improving for extremities. LABORATORY DATA: Today's blood sugar 225 and 249. Ammonia level yesterday was elevated at 144. Chest CT scan, no evidence of pulmonary embolism. Abdominal ultrasound, no acute findings. ASSESSMENT: 1. Ethanol abuse. 2. Atypical chest pain. The patient is found to have normal coronary circulation. 3. Anemia. 4. Thrombocytopenia. 5. Alcoholic liver disease. 6. Hepatic encephalopathy. 7. Chronic obstructive lung disease. 8. Rule out gastrointestinal bleeding. RECOMMENDATIONS: Continue Aldactone 12.5 mg twice a day, Cozaar 25 mg once a day, sodium gluconate infusion. Metformin 500 mg twice a day, [place] 50 mg p.o. every 6 hours, Pitocin infusion, Solu-Medrol 40 mg subcutaneous every 8 hours, Vasotec 2.5 mg daily, thiamine 100 mg IV daily, Zithromax 500 mg intravenously daily. The patient will be scheduled for upper endoscopy. Brandon Mcmahon MD
--- NOTE | 2018-06-01 00:41 | CP.PCM.PN ---
Subjective - Date & Time of Evaluation Date of Evaluation: 05/31/18 Time of Evaluation: 13:05 - Subjective Subjective: No complaints Objective - Vital Signs/Intake and Output Vital Signs (last 24 hours): Temp Pulse Resp BP Pulse Ox 98 F 93 H 22 117/69 96 05/31/18 23:52 05/31/18 23:52 05/31/18 23:52 05/31/18 23:52 05/31/18 23:52 Intake and Output: 05/31/18 06/01/18 18:59 06:59 Intake Total 325 Balance 325 - Medications Medications: Current Medications Albuterol (Ventolin Hfa 90 Mcg/Actuation (8 G)) 2 puff IH Q6 PRN PRN Reason: Shortness of Breath Albuterol/Ipratropium (Duoneb 3 Mg/0.5 Mg (3 Ml) Ud) 3 ml INH RQ6 [facility] Last Admin: 05/31/18 20:12 Dose: 3 ml Alprazolam (Xanax) 0.5 mg PO BID [facility] Last Admin: 05/31/18 17:19 Dose: 0.5 mg Chlordiazepoxide (Librium) 50 mg PO Q6H PRN PRN Reason: Alcohol Withdrawal Last Admin: 05/30/18 00:24 Dose: 50 mg Dextrose (Dextrose 50% Inj) 0 ml IV STAT PRN; Protocol PRN Reason: Hypoglycemia Protocol Dextrose (Glutose 15) 0 gm PO ONCE PRN; Protocol PRN Reason: Hypoglycemia Protocol Diphenhydramine HCl (Benadryl) 25 mg PO Q8 PRN PRN Reason: Allergy symptoms Last Admin: 05/29/18 21:23 Dose: 25 mg Enalapril Maleate (Vasotec) 2.5 mg PO DAILY [facility] Last Admin: 05/31/18 10:08 Dose: Not Given Glucagon (Glucagen Diagnostic Kit) 0 mg IM STAT PRN; Protocol PRN Reason: Hypoglycemia Protocol Azithromycin (Zithromax 500mg In Ns Addvantage) 500 mg in 250 mls @ 167 mls/hr IVPB DAILY [facility] PRN Reason: Protocol Last Admin: 05/31/18 10:07 Dose: 167 mls/hr Dextrose (Dextrose 5% In Water 1000 Ml) 1,000 mls @ 0 mls/hr IV .Q0M PRN; Protocol; Per Protocol PRN Reason: Hypoglycemia Protocol Octreotide Acetate 1,250 mcg/ (Sodium Chloride) 252.5 mls @ 5.05 mls/hr IV .Q24H [facility]; 25 MCG/HR PRN Reason: Protocol Last Admin: 05/31/18 17:19 Dose: 5.05 mls/hr Pantoprazole Sodium 80 mg/ (Sodium Chloride) 100 mls @ 10 mls/hr IVPB .Q10H [facility] PRN Reason: 8 MG/HR Last Admin: 05/31/18 17:24 Dose: 10 mls/hr Ferric Sodium Gluconate Complex 125 mg/ Sodium Chloride 110 mls @ 110 mls/hr IVPB Q24H [facility] Stop: 06/08/18 10:01 Last Admin: 05/31/18 11:07 Dose: 110 mls/hr Insulin Human Regular (Novolin R) 0 unit SC ACHS [facility] PRN Reason: Protocol Last Admin: 05/31/18 21:49 Dose: 2 unit Losartan Potassium (Cozaar) 25 mg PO DAILY [facility] Last Admin: 05/31/18 10:08 Dose: 25 mg Metformin HCl (Glucophage) 500 mg PO BID [facility] Last Admin: 05/31/18 17:19 Dose: 500 mg Methylprednisolone (Solu-Medrol) 40 mg IVPB Q8 [facility] Last Admin: 05/31/18 21:48 Dose: 40 mg Montelukast Sodium (Singulair) 10 mg PO HS [facility] Last Admin: 05/31/18 21:48 Dose: 10 mg Ondansetron HCl (Zofran Inj) 4 mg IVP Q8 PRN PRN Reason: Nausea/Vomiting Last Admin: 05/28/18 17:09 Dose: 4 mg Sertraline HCl (Zoloft) 50 mg PO DAILY [facility] Last Admin: 05/31/18 10:09 Dose: 50 mg Spironolactone (Aldactone) 12.5 mg PO BID [facility] Last Admin: 05/31/18 17:19 Dose: 12.5 mg Thiamine HCl (Vitamin B1 Tab) 100 mg PO DAILY [facility] Last Admin: 05/31/18 10:08 Dose: 100 mg Tramadol HCl (Ultram) 50 mg PO Q6H PRN PRN Reason: Pain, moderate (4-7) Last Admin: 05/28/18 17:09 Dose: 50 mg Trazodone HCl (Desyrel) 50 mg PO HS [facility] Last Admin: 05/31/18 21:48 Dose: 50 mg - Labs Labs: 05/31/18 13:55 05/31/18 13:55 PT 13.9 SECONDS (9.7-12.2) H 05/31/18 13:55 INR 1.3 05/31/18 13:55 APTT 26 SECONDS (21-34) 05/27/18 19:52 - Head Exam Head Exam: ATRAUMATIC - Eye Exam Eye Exam: Normal appearance - ENT Exam ENT Exam: Mucous Membranes Dry - Respiratory Exam Respiratory Exam: NORMAL BREATHING PATTERN - Cardiovascular Exam Cardiovascular Exam: +S1, +S2 - GI/Abdominal Exam GI & Abdominal Exam: Normal Bowel Sounds Assessment and Plan (1) Anemia Assessment & Plan: GI evaluation ? varicel bleeding borderline iron stores; on IV iron liver cirrhosis Status: Acute (2) Thrombocytopenia Assessment & Plan: secondary to liver cirrhosis Status: Acute
[2018-06-01] MEDS: Albuterol-Ipratrop 3 mg / 0.5 (3 ml) UD INH SCH ×4 (01:14→19:23)
[2018-06-01] MEDS: Pantoprazole 80 MG in Sodium Chloride 0.9% 100 ML IVPB SCH (01:39)
[2018-06-01] MEDS: MethylPREDNISolone 40 mg Vial IVPB SCH ×3 (06:35→21:31)
[2018-06-01] MEDS: (Novolin R) Insulin Human Regular 100 units/ml vial SC SCH ×4 (07:20→22:19)
[2018-06-01] MEDS ORDERED: KETAMINE HCL 50 MG/ML SYRINGE ONE (07:55)
[2018-06-01] MEDS ORDERED: Propofol 10 mg/ml Inj (20 ML) ONE (07:58)
[2018-06-01] MEDS ORDERED: Midazolam 2 MG/2 ML VIAL ONE (07:58)
[2018-06-01] MEDS ORDERED: Lactated Ringer's 500 ML IV ONE ×2 (08:07)
--- NOTE | 2018-06-01 08:36 | CP.PCM.PN ---
Subjective - Date & Time of Evaluation Date of Evaluation: 06/01/18 Time of Evaluation: 08:32 - Subjective Subjective: Patient seen and examined. No acute events overnight, she is seen resting in bed comfortably. No recurrent episodes of melena reported. She denies abdominal pain, nausea, vomiting. s/p EGD today without any features of recent or active bleeding. Objective - Vital Signs/Intake and Output Vital Signs (last 24 hours): Temp Pulse Resp BP Pulse Ox 97.6 F 95 H 17 98/57 L 97 06/01/18 07:40 06/01/18 08:08 06/01/18 08:08 06/01/18 08:08 06/01/18 08:08 Intake and Output: 06/01/18 06/01/18 06:59 18:59 Intake Total 770 120 Balance 770 120 - Medications Medications: Current Medications Albuterol (Ventolin Hfa 90 Mcg/Actuation (8 G)) 2 puff IH Q6 PRN PRN Reason: Shortness of Breath Albuterol/Ipratropium (Duoneb 3 Mg/0.5 Mg (3 Ml) Ud) 3 ml INH RQ6 [facility] Last Admin: 06/01/18 07:34 Dose: 3 ml Alprazolam (Xanax) 0.5 mg PO BID [facility] Last Admin: 05/31/18 17:19 Dose: 0.5 mg Chlordiazepoxide (Librium) 50 mg PO Q6H PRN PRN Reason: Alcohol Withdrawal Last Admin: 05/30/18 00:24 Dose: 50 mg Dextrose (Dextrose 50% Inj) 0 ml IV STAT PRN; Protocol PRN Reason: Hypoglycemia Protocol Dextrose (Glutose 15) 0 gm PO ONCE PRN; Protocol PRN Reason: Hypoglycemia Protocol Diphenhydramine HCl (Benadryl) 25 mg PO Q8 PRN PRN Reason: Allergy symptoms Last Admin: 05/29/18 21:23 Dose: 25 mg Enalapril Maleate (Vasotec) 2.5 mg PO DAILY [facility] Last Admin: 05/31/18 10:08 Dose: Not Given Glucagon (Glucagen Diagnostic Kit) 0 mg IM STAT PRN; Protocol PRN Reason: Hypoglycemia Protocol Azithromycin (Zithromax 500mg In Ns Addvantage) 500 mg in 250 mls @ 167 mls/hr IVPB DAILY [facility] PRN Reason: Protocol Last Admin: 05/31/18 10:07 Dose: 167 mls/hr Dextrose (Dextrose 5% In Water 1000 Ml) 1,000 mls @ 0 mls/hr IV .Q0M PRN; Protocol; Per Protocol PRN Reason: Hypoglycemia Protocol Ferric Sodium Gluconate Complex 125 mg/ Sodium Chloride 110 mls @ 110 mls/hr IVPB Q24H [facility] Stop: 06/08/18 10:01 Last Admin: 05/31/18 11:07 Dose: 110 mls/hr Lactated Ringer's (Lactated Ringer's 500ml) 500 mls @ 75 mls/hr IV .Q6H40M [facility] Insulin Human Regular (Novolin R) 0 unit SC ACHS [facility] PRN Reason: Protocol Last Admin: 06/01/18 07:20 Dose: Not Given Lactulose (Enulose) 20 gm PO BID [facility] Losartan Potassium (Cozaar) 25 mg PO DAILY [facility] Last Admin: 05/31/18 10:08 Dose: 25 mg Metformin HCl (Glucophage) 500 mg PO BID [facility] Last Admin: 05/31/18 17:19 Dose: 500 mg Methylprednisolone (Solu-Medrol) 40 mg IVPB Q8 [facility] Last Admin: 06/01/18 06:35 Dose: 40 mg Montelukast Sodium (Singulair) 10 mg PO [facility] Last Admin: 05/31/18 21:48 Dose: 10 mg Ondansetron HCl (Zofran Inj) 4 mg IVP Q8 PRN PRN Reason: Nausea/Vomiting Last Admin: 05/28/18 17:09 Dose: 4 mg Sertraline HCl (Zoloft) 50 mg PO DAILY [facility] Last Admin: 05/31/18 10:09 Dose: 50 mg Spironolactone (Aldactone) 12.5 mg PO BID [facility] Last Admin: 05/31/18 17:19 Dose: 12.5 mg Thiamine HCl (Vitamin B1 Tab) 100 mg PO DAILY [facility] Last Admin: 05/31/18 10:08 Dose: 100 mg Tramadol HCl (Ultram) 50 mg PO Q6H PRN PRN Reason: Pain, moderate (4-7) Last Admin: 05/28/18 17:09 Dose: 50 mg Trazodone HCl (Desyrel) 50 mg PO [facility] Last Admin: 09/06/18 21:48 Dose: 50 mg - Labs Labs: 05/31/18 13:55 05/31/18 13:55 PT 13.9 SECONDS (9.7-12.2) H 05/31/18 13:55 INR 1.3 05/31/18 13:55 APTT 26 SECONDS (21-34) 05/27/18 19:52 Assessment and Plan - Assessment and Plan (Free Text) Assessment: Decompensated ETOH cirrhosis Bipolar disorder DM / HTN COPD History of DVT/PE, non-compliant with AC therapy Anemia - s/p EGD today showing irregular GEJ, isolated gastric varix, retained food content, gastritis Plan: - Advance diet as tolerated - H/H stable, continue to monitor - May discontinue octreotide and PPI infusions - Suggest lactulose for HE prevention - Management of COPD exacerbation as per medical team - Suggest additional outpatient follow up along with screening colonoscopy. No further planned GI intervention, will sign off case. Please reconsult as necessary, thank you.
--- NOTE | 2018-06-01 09:50 | CP.PCM.PN ---
Subjective - Date & Time of Evaluation Date of Evaluation: 06/01/18 Time of Evaluation: 11:00 - Subjective Subjective: clinically same Objective - Vital Signs/Intake and Output Vital Signs (last 24 hours): Temp Pulse Resp BP Pulse Ox 99.1 F 94 H 15 100/55 L 98 06/01/18 08:30 06/01/18 09:00 06/01/18 09:00 06/01/18 09:00 06/01/18 09:00 Intake and Output: 06/01/18 06/01/18 06:59 18:59 Intake Total 770 120 Balance 770 120 - Medications Medications: Current Medications Albuterol (Ventolin Hfa 90 Mcg/Actuation (8 G)) 2 puff IH Q6 PRN PRN Reason: Shortness of Breath Albuterol/Ipratropium (Duoneb 3 Mg/0.5 Mg (3 Ml) Ud) 3 ml INH RQ6 [facility] Last Admin: 06/01/18 07:34 Dose: 3 ml Alprazolam (Xanax) 0.5 mg PO BID [facility] Last Admin: 05/31/18 17:19 Dose: 0.5 mg Chlordiazepoxide (Librium) 50 mg PO Q6H PRN PRN Reason: Alcohol Withdrawal Last Admin: 05/30/18 00:24 Dose: 50 mg Dextrose (Dextrose 50% Inj) 0 ml IV STAT PRN; Protocol PRN Reason: Hypoglycemia Protocol Dextrose (Glutose 15) 0 gm PO ONCE PRN; Protocol PRN Reason: Hypoglycemia Protocol Diphenhydramine HCl (Benadryl) 25 mg PO Q8 PRN PRN Reason: Allergy symptoms Last Admin: 05/29/18 21:23 Dose: 25 mg Enalapril Maleate (Vasotec) 2.5 mg PO DAILY [facility] Last Admin: 05/31/18 10:08 Dose: Not Given Glucagon (Glucagen Diagnostic Kit) 0 mg IM STAT PRN; Protocol PRN Reason: Hypoglycemia Protocol Azithromycin (Zithromax 500mg In Ns Addvantage) 500 mg in 250 mls @ 167 mls/hr IVPB DAILY [facility] PRN Reason: Protocol Last Admin: 05/31/18 10:07 Dose: 167 mls/hr Dextrose (Dextrose 5% In Water 1000 Ml) 1,000 mls @ 0 mls/hr IV .Q0M PRN; Protocol; Per Protocol PRN Reason: Hypoglycemia Protocol Ferric Sodium Gluconate Complex 125 mg/ Sodium Chloride 110 mls @ 110 mls/hr IVPB Q24H [facility] Stop: 06/08/18 10:01 Last Admin: 05/31/18 11:07 Dose: 110 mls/hr Lactated Ringer's (Lactated Ringer's 500ml) 500 mls @ 75 mls/hr IV .Q6H40M [facility] Insulin Human Regular (Novolin R) 0 unit SC ACHS [facility] PRN Reason: Protocol Last Admin: 06/01/18 07:20 Dose: Not Given Lactulose (Enulose) 20 gm PO BID [facility] Losartan Potassium (Cozaar) 25 mg PO DAILY [facility] Last Admin: 05/31/18 10:08 Dose: 25 mg Metformin HCl (Glucophage) 500 mg PO BID [facility] Last Admin: 05/31/18 17:19 Dose: 500 mg Methylprednisolone (Solu-Medrol) 40 mg IVPB Q8 [facility] Last Admin: 06/01/18 06:35 Dose: 40 mg Montelukast Sodium (Singulair) 10 mg PO [facility] Last Admin: 05/31/18 21:48 Dose: 10 mg Ondansetron HCl (Zofran Inj) 4 mg IVP Q8 PRN PRN Reason: Nausea/Vomiting Last Admin: 05/28/18 17:09 Dose: 4 mg Sertraline HCl (Zoloft) 50 mg PO DAILY [facility] Last Admin: 05/31/18 10:09 Dose: 50 mg Spironolactone (Aldactone) 12.5 mg PO BID [facility] Last Admin: 05/31/18 17:19 Dose: 12.5 mg Thiamine HCl (Vitamin B1 Tab) 100 mg PO DAILY [facility] Last Admin: 05/31/18 10:08 Dose: 100 mg Tramadol HCl (Ultram) 50 mg PO Q6H PRN PRN Reason: Pain, moderate (4-7) Last Admin: 05/28/18 17:09 Dose: 50 mg Trazodone HCl (Desyrel) 50 mg PO HS [facility] Last Admin: 05/31/18 21:48 Dose: 50 mg - Labs Labs: 05/31/18 13:55 05/31/18 13:55 PT 13.9 SECONDS (9.7-12.2) H 05/31/18 13:55 INR 1.3 05/31/18 13:55 APTT 26 SECONDS (21-34) 05/27/18 19:52 - Constitutional Appears: Well - Head Exam Head Exam: ATRAUMATIC, NORMAL INSPECTION, NORMOCEPHALIC - Eye Exam Eye Exam: EOMI, Normal appearance, PERRL Pupil Exam: NORMAL ACCOMODATION, PERRL - ENT Exam ENT Exam: Mucous Membranes Moist, Normal Exam - Neck Exam Neck Exam: Full ROM, Normal Inspection. absent: Lymphadenopathy - Respiratory Exam Respiratory Exam: Decreased Breath Sounds - Cardiovascular Exam Cardiovascular Exam: REGULAR RHYTHM, +S1, +S2 - GI/Abdominal Exam GI & Abdominal Exam: Soft, Diminished Bowel Sounds - Rectal Exam Rectal Exam: Deferred
[2018-06-01] MEDS: Azithromycin 500mg/250ML NS 500 MG/250 ML BAG IVPB SCH (11:01)
[2018-06-01] MEDS: Ferric Sodium Gluconat Complex 125 MG in Sodium Chloride 0.9% 100 ML IVPB SCH (11:39)
[2018-06-01 11:42] LABS: BASO % 0.1 % (0.0-2.0); HEMOGLOBIN 8.6 g/dL (11.0-16.0); LYMPH # 0.3 K/uL (1.0-4.3); LYMPH % 5.2 % (20.0-40.0); MEAN CELL VOLUME 95.6 fL (81.0-99.0); MEAN CORPUSCULAR HEMOGLOBIN 31.5 pg (27.0-31.0); MEAN CORPUSCULAR HGB CONC 32.9 g/dL (33.0-37.0); MEAN PLATELET VOLUME 9.3 fL (7.2-11.7); MONO # 0.2 K/uL (0.0-0.8); MONO % 3.6 % (0.0-10.0); NEUT # 6.1 K/uL (1.8-7.0); NEUT % 91.1 % (50.0-75.0); NRBC % 0.8 % (0.0-2.0); PLATELET COUNT 75 K/uL (130-400); RBC 2.72 Mil/uL (3.80-5.20); WHITE BLOOD COUNT 6.7 K/uL (4.8-10.8)
[2018-06-01 12:08] LABS: ALBUMIN 2.9 g/dL (3.5-5.0); ALT/SGPT 103 U/L (9-52); AST/SGOT 107 U/L (14-36); BLOOD UREA NITROGEN 13 mg/dL (7-17); CALCIUM 8.3 mg/dl (8.6-10.4); GFR NON-AFRICAN AMERICAN > 60
[2018-06-01 12:22] LABS: LYMPHOCYTE 3 % (20-40); MONOCYTE 3 % (0-10); NEUTROPHIL 94 % (50-75); NUCLEATED RED BLOOD CELL 1 % (0-0); TOTAL CELLS COUNTED 100
[2018-06-01 12:23] LABS: ANISOCYTOSIS SLIGHT; HYPOCHROMIC SLIGHT; PLATELET ESTIMATE DECREASED (NORMAL); POLYCHROMIC SLIGHT
[2018-06-01] MEDS: Lactated Ringer's 500 ML IV SCH ×2 (15:29→21:30)
[2018-06-01 17:16] LABS: INR 1.3; PROTHROMBIN TIME 13.7 SECONDS (9.7-12.2)
--- NOTE | 2018-06-01 18:21 | PN ---
DATE: 06/01/2018 SUBJECTIVE: The patient denies shortness of breath or retrosternal chest pain. The patient underwent upper endoscopy and impression was normal esophagus. A medium amount of food in the stomach, type 1 isolated gastric varices, gastritis, biopsied normal, examined duodenum. Recommendation was to return the patient to the hospital [facility] for overnight care and advance diet as tolerated and await pathology results. PHYSICAL EXAMINATION: VITAL SIGNS: Blood pressure 155/94, temperature 99.1, respirations 15. HEENT: Pale conjunctivae. CHEST: Clear. HEART: S1 and S2 regular. EXTREMITIES: 1+ pitting edema with significant ecchymosis. LABORATORY DATA: Today's SMA-7 is within normal limits except for glucose and creatinine 0.6. AST and ALT are 107 and 103 respectively. Alkaline phosphatase is 110, within normal limit. Today's hemoglobin and hematocrit 8.6 and 26. Today's platelet count 75,000. ASSESSMENT: 1. Chest pain, myocardial infarction ruled out. 2. Alcoholic liver disease. 3. Esophageal varices. 4. History of deep vein thrombosis in the past with inferior vena cava filter placement. 5. Anemia. 6. Thrombocytopenia. RECOMMENDATIONS: Continue Aldactone 12.5 mg twice a day, Cozaar 25 mg once a day, lactulose 20 mg p.o. twice a day, metformin 500 mg twice a day, Singulair 10 mg once a day, Solu-Medrol 40 mg intravenous every 8 hours, enalapril at 2.5 mg daily, thiamine 100 mg once a day, Zithromax 500 mg intravenously daily, Zofran 4 mg intravenous every 8 hours p.r.n., and Zoloft 50 mg orally daily. Brandon Mcmahon MD
[2018-06-02] MEDS: Albuterol-Ipratrop 3 mg / 0.5 (3 ml) UD INH SCH ×3 (01:43→13:32)
[2018-06-02] MEDS: MethylPREDNISolone 40 mg Vial IVPB SCH ×3 (05:44→21:29)
[2018-06-02] MEDS: (Novolin R) Insulin Human Regular 100 units/ml vial SC SCH ×4 (08:20→21:38)
[2018-06-02 08:28] VITALS: RESP 20
[2018-06-02] MEDS: Azithromycin 500mg/250ML NS 500 MG/250 ML BAG IVPB SCH (10:11)
[2018-06-02] MEDS: Ferric Sodium Gluconat Complex 125 MG in Sodium Chloride 0.9% 100 ML IVPB SCH (11:01)
[2018-06-02] MEDS: Lactated Ringer's 500 ML IV SCH (12:27)
--- NOTE | 2018-06-02 18:02 | PN ---
DATE: 06/02/2018 SUBJECTIVE: The patient is oriented to place. She denies any shortness of breath. She complains of a steady, aching chest discomfort. PHYSICAL EXAMINATION: VITAL SIGNS: Blood pressure 131/74, heart rate 94, temperature 98.2, respirations 18. HEENT: Pale conjunctivae. CHEST: Bilateral rhonchi. HEART: S1 and S2 regular. ABDOMEN: Soft. EXTREMITIES: Significant bruising involving the four extremities. LABORATORY DATA: Today's blood sugar is 175 and 187 respectively. ASSESSMENT: 1. Alcoholic liver disease. 2. Chest pain. The patient is known to have normal coronary circulation on recent cardiac catheterization. 3. Anemia and thrombocytopenia. 4. Gastroparesis. 5. Chronic obstructive lung disease. 6. Status post alcohol intoxication. RECOMMENDATIONS: Continue Aldactone 12.5 mg p.o. twice a day, Cozaar 25 mg once a day, ferric sodium gluconate infusion, metformin 500 mg twice a day, Librium at 50 mg p.o. every 6 hours, Solu-Medrol 40 mg intravenously every 8 hours, Xanax 0.5 mg twice a day, Zithromax 500 mg intravenously daily. Brandon Mcmahon MD
--- NOTE | 2018-06-02 23:17 | CP.PCM.PN ---
Subjective - Date & Time of Evaluation Date of Evaluation: 06/02/18 Time of Evaluation: 09:45 - Subjective Subjective: clinically same Objective - Vital Signs/Intake and Output Vital Signs (last 24 hours): Temp Pulse Resp BP Pulse Ox 98.1 F 90 20 115/71 97 06/02/18 15:00 06/02/18 19:05 06/02/18 15:00 06/02/18 19:05 06/02/18 15:00 - Medications Medications: Current Medications Albuterol (Ventolin Hfa 90 Mcg/Actuation (8 G)) 2 puff IH Q6 PRN PRN Reason: Shortness of Breath Alprazolam (Xanax) 0.5 mg PO BID [facility] Last Admin: 06/02/18 17:25 Dose: 0.5 mg Azithromycin (Zithromax) 500 mg PO DAILY [facility] Chlordiazepoxide (Librium) 50 mg PO Q6H PRN PRN Reason: Alcohol Withdrawal Last Admin: 05/30/18 00:24 Dose: 50 mg Dextrose (Dextrose 50% Inj) 0 ml IV STAT PRN; Protocol PRN Reason: Hypoglycemia Protocol Dextrose (Glutose 15) 0 gm PO ONCE PRN; Protocol PRN Reason: Hypoglycemia Protocol Diphenhydramine HCl (Benadryl) 25 mg PO Q8 PRN PRN Reason: Allergy symptoms Last Admin: 05/29/18 21:23 Dose: 25 mg Enalapril Maleate (Vasotec) 2.5 mg PO DAILY [facility] Last Admin: 06/02/18 10:05 Dose: 2.5 mg Glucagon (Glucagen Diagnostic Kit) 0 mg IM STAT PRN; Protocol PRN Reason: Hypoglycemia Protocol Ferric Sodium Gluconate Complex 125 mg/ Sodium Chloride 110 mls @ 110 mls/hr IVPB Q24H [facility] Stop: 06/08/18 10:01 Last Admin: 06/02/18 11:01 Dose: 110 mls/hr Insulin Human Regular (Novolin R) 0 unit SC ACHS [facility] PRN Reason: Protocol Last Admin: 06/02/18 21:38 Dose: Not Given Lactulose (Enulose) 20 gm PO BID [facility] Last Admin: 06/02/18 17:25 Dose: 20 gm Losartan Potassium (Cozaar) 25 mg PO DAILY [facility] Last Admin: 06/02/18 10:06 Dose: 25 mg Metformin HCl (Glucophage) 500 mg PO BID [facility] Last Admin: 06/02/18 17:25 Dose: 500 mg Methylprednisolone (Solu-Medrol) 40 mg IVPB Q8 [facility] Last Admin: 06/02/18 21:29 Dose: 40 mg Montelukast Sodium (Singulair) 10 mg PO HS [facility] Last Admin: 06/02/18 21:29 Dose: 10 mg Ondansetron HCl (Zofran Inj) 4 mg IVP Q8 PRN PRN Reason: Nausea/Vomiting Last Admin: 05/28/18 17:09 Dose: 4 mg Sertraline HCl (Zoloft) 50 mg PO DAILY [facility] Last Admin: 06/02/18 10:07 Dose: 50 mg Spironolactone (Aldactone) 12.5 mg PO BID [facility] Last Admin: 06/02/18 17:25 Dose: 12.5 mg Thiamine HCl (Vitamin B1 Tab) 100 mg PO DAILY [facility] Last Admin: 06/02/18 10:04 Dose: 100 mg Tramadol HCl (Ultram) 50 mg PO Q6H PRN PRN Reason: Pain, moderate (4-7) Last Admin: 06/02/18 05:48 Dose: 50 mg Trazodone HCl (Desyrel) 50 mg PO [facility] Last Admin: 06/02/18 21:29 Dose: 50 mg - Labs Labs: 06/01/18 11:25 06/01/18 11:25 PT 13.7 SECONDS (9.7-12.2) H 06/01/18 17:06 INR 1.3 06/01/18 17:06 APTT 26 SECONDS (21-34) 05/27/18 19:52 - Constitutional Appears: Well - Head Exam Head Exam: ATRAUMATIC, NORMAL INSPECTION, NORMOCEPHALIC - Eye Exam Eye Exam: EOMI, Normal appearance, PERRL Pupil Exam: NORMAL ACCOMODATION - ENT Exam ENT Exam: Mucous Membranes Moist, Normal Exam - Neck Exam Neck Exam: Full ROM, Normal Inspection. absent: Lymphadenopathy - Respiratory Exam Respiratory Exam: Decreased Breath Sounds - Cardiovascular Exam Cardiovascular Exam: REGULAR RHYTHM, +S1, +S2 - GI/Abdominal Exam GI & Abdominal Exam: Soft, Diminished Bowel Sounds - Rectal Exam Rectal Exam: Deferred
[2018-06-03] MEDS: MethylPREDNISolone 40 mg Vial IVPB SCH ×3 (06:11→21:49)
[2018-06-03] MEDS: (Novolin R) Insulin Human Regular 100 units/ml vial SC SCH ×4 (08:24→21:26)
[2018-06-03] MEDS: Ferric Sodium Gluconat Complex 125 MG in Sodium Chloride 0.9% 100 ML IVPB SCH (11:00)
--- NOTE | 2018-06-03 11:11 | CP.PCM.PN ---
Subjective - Date & Time of Evaluation Date of Evaluation: 06/03/18 Time of Evaluation: 10:00 - Subjective Subjective: clinically same Objective - Vital Signs/Intake and Output Vital Signs (last 24 hours): Temp Pulse Resp BP Pulse Ox 98.6 F 85 20 113/68 99 06/03/18 08:00 06/03/18 09:20 06/03/18 08:00 06/03/18 09:20 06/03/18 08:00 Intake and Output: 06/03/18 06/03/18 06:59 18:59 Intake Total 100 Balance 100 - Medications Medications: Current Medications Albuterol (Ventolin Hfa 90 Mcg/Actuation (8 G)) 2 puff IH Q6 PRN PRN Reason: Shortness of Breath Alprazolam (Xanax) 0.5 mg PO BID [facility] Last Admin: 06/03/18 09:01 Dose: 0.5 mg Azithromycin (Zithromax) 500 mg PO DAILY [facility] Chlordiazepoxide (Librium) 50 mg PO Q6H PRN PRN Reason: Alcohol Withdrawal Last Admin: 05/30/18 00:24 Dose: 50 mg Dextrose (Dextrose 50% Inj) 0 ml IV STAT PRN; Protocol PRN Reason: Hypoglycemia Protocol Dextrose (Glutose 15) 0 gm PO ONCE PRN; Protocol PRN Reason: Hypoglycemia Protocol Diphenhydramine HCl (Benadryl) 25 mg PO Q8 PRN PRN Reason: Allergy symptoms Last Admin: 05/29/18 21:23 Dose: 25 mg Enalapril Maleate (Vasotec) 2.5 mg PO DAILY [facility] Last Admin: 06/03/18 09:18 Dose: 2.5 mg Glucagon (Glucagen Diagnostic Kit) 0 mg IM STAT PRN; Protocol PRN Reason: Hypoglycemia Protocol Ferric Sodium Gluconate Complex 125 mg/ Sodium Chloride 110 mls @ 110 mls/hr IVPB Q24H [facility] Stop: 06/08/18 10:01 Last Admin: 06/02/18 11:01 Dose: 110 mls/hr Insulin Human Regular (Novolin R) 0 unit SC ACHS [facility] PRN Reason: Protocol Last Admin: 06/03/18 08:24 Dose: 2 unit Lactulose (Enulose) 20 gm PO BID [facility] Last Admin: 06/03/18 09:01 Dose: 20 gm Losartan Potassium (Cozaar) 25 mg PO DAILY [facility] Last Admin: 06/03/18 09:01 Dose: 25 mg Metformin HCl (Glucophage) 500 mg PO BID [facility] Last Admin: 06/03/18 09:01 Dose: 500 mg Methylprednisolone (Solu-Medrol) 40 mg IVPB Q8 [facility] Last Admin: 06/03/18 06:11 Dose: 40 mg Montelukast Sodium (Singulair) 10 mg PO HS [facility] Last Admin: 06/02/18 21:29 Dose: 10 mg Ondansetron HCl (Zofran Inj) 4 mg IVP Q8 PRN PRN Reason: Nausea/Vomiting Last Admin: 05/28/18 17:09 Dose: 4 mg Sertraline HCl (Zoloft) 50 mg PO DAILY [facility] Last Admin: 06/03/18 09:01 Dose: 50 mg Spironolactone (Aldactone) 12.5 mg PO BID [facility] Last Admin: 06/02/18 17:25 Dose: 12.5 mg Thiamine HCl (Vitamin B1 Tab) 100 mg PO DAILY [facility] Last Admin: 06/03/18 09:01 Dose: 100 mg Tramadol HCl (Ultram) 50 mg PO Q6H PRN PRN Reason: Pain, moderate (4-7) Last Admin: 06/02/18 05:48 Dose: 50 mg Trazodone HCl (Desyrel) 50 mg PO [facility] Last Admin: 06/02/18 21:29 Dose: 50 mg - Labs Labs: 06/01/18 11:25 06/01/18 11:25 PT 13.7 SECONDS (9.7-12.2) H 06/01/18 17:06 INR 1.3 06/01/18 17:06 APTT 26 SECONDS (21-34) 05/27/18 19:52 - Constitutional Appears: Well - Head Exam Head Exam: ATRAUMATIC, NORMAL INSPECTION, NORMOCEPHALIC - Eye Exam Eye Exam: EOMI, Normal appearance, PERRL Pupil Exam: NORMAL ACCOMODATION, PERRL - ENT Exam ENT Exam: Mucous Membranes Moist, Normal Exam - Neck Exam Neck Exam: Full ROM, Normal Inspection. absent: Lymphadenopathy - Respiratory Exam Respiratory Exam: Decreased Breath Sounds - Cardiovascular Exam Cardiovascular Exam: REGULAR RHYTHM, +S1, +S2 - GI/Abdominal Exam GI & Abdominal Exam: Soft, Diminished Bowel Sounds - Rectal Exam Rectal Exam: Deferred
[2018-06-03] MEDS ORDERED: Albuterol-Ipratrop 3 mg / 0.5 (3 ml) UD INH STA (18:48)
[2018-06-03] MEDS: Albuterol-Ipratrop 3 mg / 0.5 (3 ml) UD INH SCH (20:22)
--- NOTE | 2018-06-03 23:00 | CP.PCM.PN ---
Subjective - Date & Time of Evaluation Date of Evaluation: 06/01/18 Time of Evaluation: 12:00 - Subjective Subjective: No complaints s/p EGD Objective - Vital Signs/Intake and Output Vital Signs (last 24 hours): Temp Pulse Resp BP Pulse Ox 97.9 F 105 H 20 114/70 97 06/03/18 16:59 06/03/18 19:00 06/03/18 16:59 06/03/18 19:00 06/03/18 19:00 Intake and Output: 06/03/18 06/04/18 18:59 06:59 Intake Total 680 100 Balance 680 100 - Medications Medications: Current Medications Albuterol (Ventolin Hfa 90 Mcg/Actuation (8 G)) 2 puff IH Q6 PRN PRN Reason: Shortness of Breath Albuterol/Ipratropium (Duoneb 3 Mg/0.5 Mg (3 Ml) Ud) 3 ml INH RQ12 [facility] Last Admin: 06/03/18 20:22 Dose: 3 ml Alprazolam (Xanax) 0.5 mg PO BID [facility] Last Admin: 06/03/18 17:26 Dose: 0.5 mg Azithromycin (Zithromax) 500 mg PO DAILY [facility] Last Admin: 06/03/18 11:00 Dose: 500 mg Chlordiazepoxide (Librium) 50 mg PO Q6H PRN PRN Reason: Alcohol Withdrawal Last Admin: 05/30/18 00:24 Dose: 50 mg Dextrose (Dextrose 50% Inj) 0 ml IV STAT PRN; Protocol PRN Reason: Hypoglycemia Protocol Dextrose (Glutose 15) 0 gm PO ONCE PRN; Protocol PRN Reason: Hypoglycemia Protocol Diphenhydramine HCl (Benadryl) 25 mg PO Q8 PRN PRN Reason: Allergy symptoms Last Admin: 05/29/18 21:23 Dose: 25 mg Enalapril Maleate (Vasotec) 2.5 mg PO DAILY [facility] Last Admin: 06/03/18 09:18 Dose: 2.5 mg Glucagon (Glucagen Diagnostic Kit) 0 mg IM STAT PRN; Protocol PRN Reason: Hypoglycemia Protocol Ferric Sodium Gluconate Complex 125 mg/ Sodium Chloride 110 mls @ 110 mls/hr IVPB Q24H [facility] Stop: 06/08/18 10:01 Last Admin: 06/03/18 11:00 Dose: 110 mls/hr Insulin Human Regular (Novolin R) 0 unit SC ACHS [facility] PRN Reason: Protocol Last Admin: 06/03/18 21:26 Dose: Not Given Lactulose (Enulose) 20 gm PO BID [facility] Last Admin: 06/03/18 17:25 Dose: 20 gm Losartan Potassium (Cozaar) 25 mg PO DAILY [facility] Last Admin: 06/03/18 09:01 Dose: 25 mg Metformin HCl (Glucophage) 500 mg PO BID [facility] Last Admin: 06/03/18 17:26 Dose: 500 mg Methylprednisolone (Solu-Medrol) 40 mg IVPB Q8 [facility] Last Admin: 06/03/18 21:49 Dose: 40 mg Montelukast Sodium (Singulair) 10 mg PO [facility] Last Admin: 06/03/18 21:49 Dose: 10 mg Ondansetron HCl (Zofran Inj) 4 mg IVP Q8 PRN PRN Reason: Nausea/Vomiting Last Admin: 05/28/18 17:09 Dose: 4 mg Sertraline HCl (Zoloft) 50 mg PO DAILY [facility] Last Admin: 06/03/18 09:01 Dose: 50 mg Spironolactone (Aldactone) 12.5 mg PO BID [facility] Last Admin: 06/03/18 17:26 Dose: 12.5 mg Thiamine HCl (Vitamin B1 Tab) 100 mg PO DAILY [facility] Last Admin: 06/03/18 09:01 Dose: 100 mg Tramadol HCl (Ultram) 50 mg PO Q6H PRN PRN Reason: Pain, moderate (4-7) Last Admin: 06/02/18 05:48 Dose: 50 mg Trazodone HCl (Desyrel) 50 mg PO [facility] Last Admin: 06/03/18 21:49 Dose: 50 mg - Labs Labs: 06/01/18 11:25 06/01/18 11:25 PT 13.7 SECONDS (9.7-12.2) H 06/01/18 17:06 INR 1.3 06/01/18 17:06 APTT 26 SECONDS (21-34) 05/27/18 19:52 - Head Exam Head Exam: ATRAUMATIC - Eye Exam Eye Exam: Normal appearance - ENT Exam ENT Exam: Mucous Membranes Dry - Respiratory Exam Respiratory Exam: NORMAL BREATHING PATTERN - Cardiovascular Exam Cardiovascular Exam: +S1, +S2 Assessment and Plan (1) Anemia Assessment & Plan: EGD shows no active bleeding borderline iron stores; on IV iron liver cirrhosis Status: Acute (2) Thrombocytopenia Assessment & Plan: secondary to liver cirrhosis Status: Acute
--- NOTE | 2018-06-03 23:01 | CP.PCM.PN ---
Subjective - Date & Time of Evaluation Date of Evaluation: 06/02/18 Time of Evaluation: 17:00 - Subjective Subjective: No complaints. Objective - Vital Signs/Intake and Output Vital Signs (last 24 hours): Temp Pulse Resp BP Pulse Ox 97.9 F 105 H 20 114/70 97 06/03/18 16:59 06/03/18 19:00 06/03/18 16:59 06/03/18 19:00 06/03/18 19:00 Intake and Output: 06/03/18 06/04/18 18:59 06:59 Intake Total 680 100 Balance 680 100 - Medications Medications: Current Medications Albuterol (Ventolin Hfa 90 Mcg/Actuation (8 G)) 2 puff IH Q6 PRN PRN Reason: Shortness of Breath Albuterol/Ipratropium (Duoneb 3 Mg/0.5 Mg (3 Ml) Ud) 3 ml INH RQ12 [facility] Last Admin: 06/03/18 20:22 Dose: 3 ml Alprazolam (Xanax) 0.5 mg PO BID [facility] Last Admin: 06/03/18 17:26 Dose: 0.5 mg Azithromycin (Zithromax) 500 mg PO DAILY [facility] Last Admin: 06/03/18 11:00 Dose: 500 mg Chlordiazepoxide (Librium) 50 mg PO Q6H PRN PRN Reason: Alcohol Withdrawal Last Admin: 05/30/18 00:24 Dose: 50 mg Dextrose (Dextrose 50% Inj) 0 ml IV STAT PRN; Protocol PRN Reason: Hypoglycemia Protocol Dextrose (Glutose 15) 0 gm PO ONCE PRN; Protocol PRN Reason: Hypoglycemia Protocol Diphenhydramine HCl (Benadryl) 25 mg PO Q8 PRN PRN Reason: Allergy symptoms Last Admin: 05/29/18 21:23 Dose: 25 mg Enalapril Maleate (Vasotec) 2.5 mg PO DAILY [facility] Last Admin: 06/03/18 09:18 Dose: 2.5 mg Glucagon (Glucagen Diagnostic Kit) 0 mg IM STAT PRN; Protocol PRN Reason: Hypoglycemia Protocol Ferric Sodium Gluconate Complex 125 mg/ Sodium Chloride 110 mls @ 110 mls/hr IVPB Q24H [facility] Stop: 06/08/18 10:01 Last Admin: 06/03/18 11:00 Dose: 110 mls/hr Insulin Human Regular (Novolin R) 0 unit SC ACHS [facility] PRN Reason: Protocol Last Admin: 06/03/18 21:26 Dose: Not Given Lactulose (Enulose) 20 gm PO BID [facility] Last Admin: 06/03/18 17:25 Dose: 20 gm Losartan Potassium (Cozaar) 25 mg PO DAILY [facility] Last Admin: 06/03/18 09:01 Dose: 25 mg Metformin HCl (Glucophage) 500 mg PO BID [facility] Last Admin: 06/03/18 17:26 Dose: 500 mg Methylprednisolone (Solu-Medrol) 40 mg IVPB Q8 [facility] Last Admin: 06/03/18 21:49 Dose: 40 mg Montelukast Sodium (Singulair) 10 mg PO [facility] Last Admin: 06/03/18 21:49 Dose: 10 mg Ondansetron HCl (Zofran Inj) 4 mg IVP Q8 PRN PRN Reason: Nausea/Vomiting Last Admin: 05/28/18 17:09 Dose: 4 mg Sertraline HCl (Zoloft) 50 mg PO DAILY [facility] Last Admin: 06/03/18 09:01 Dose: 50 mg Spironolactone (Aldactone) 12.5 mg PO BID [facility] Last Admin: 06/03/18 17:26 Dose: 12.5 mg Thiamine HCl (Vitamin B1 Tab) 100 mg PO DAILY [facility] Last Admin: 06/03/18 09:01 Dose: 100 mg Tramadol HCl (Ultram) 50 mg PO Q6H PRN PRN Reason: Pain, moderate (4-7) Last Admin: 06/02/18 05:48 Dose: 50 mg Trazodone HCl (Desyrel) 50 mg PO [facility] Last Admin: 06/03/18 21:49 Dose: 50 mg - Labs Labs: 06/01/18 11:25 06/01/18 11:25 PT 13.7 SECONDS (9.7-12.2) H 06/01/18 17:06 INR 1.3 06/01/18 17:06 APTT 26 SECONDS (21-34) 05/27/18 19:52 - Head Exam Head Exam: ATRAUMATIC - Eye Exam Eye Exam: Normal appearance - ENT Exam ENT Exam: Mucous Membranes Dry - Respiratory Exam Respiratory Exam: NORMAL BREATHING PATTERN - Cardiovascular Exam Cardiovascular Exam: +S1, +S2 - GI/Abdominal Exam GI & Abdominal Exam: Normal Bowel Sounds Assessment and Plan (1) Anemia Assessment & Plan: EGD shows no active bleeding borderline iron stores; on IV iron liver cirrhosis Status: Acute (2) Thrombocytopenia Assessment & Plan: secondary to liver cirrhosis Status: Acute
--- NOTE | 2018-06-03 23:05 | CP.PCM.PN ---
Subjective - Date & Time of Evaluation Date of Evaluation: 06/03/18 Time of Evaluation: 14:00 - Subjective Subjective: No complaints. Objective - Vital Signs/Intake and Output Vital Signs (last 24 hours): Temp Pulse Resp BP Pulse Ox 97.9 F 105 H 20 114/70 97 06/03/18 16:59 06/03/18 19:00 06/03/18 16:59 06/03/18 19:00 06/03/18 19:00 Intake and Output: 06/03/18 06/04/18 18:59 06:59 Intake Total 680 100 Balance 680 100 - Medications Medications: Current Medications Albuterol (Ventolin Hfa 90 Mcg/Actuation (8 G)) 2 puff IH Q6 PRN PRN Reason: Shortness of Breath Albuterol/Ipratropium (Duoneb 3 Mg/0.5 Mg (3 Ml) Ud) 3 ml INH RQ12 [facility] Last Admin: 06/03/18 20:22 Dose: 3 ml Alprazolam (Xanax) 0.5 mg PO BID [facility] Last Admin: 06/03/18 17:26 Dose: 0.5 mg Azithromycin (Zithromax) 500 mg PO DAILY [facility] Last Admin: 06/03/18 11:00 Dose: 500 mg Chlordiazepoxide (Librium) 50 mg PO Q6H PRN PRN Reason: Alcohol Withdrawal Last Admin: 05/30/18 00:24 Dose: 50 mg Dextrose (Dextrose 50% Inj) 0 ml IV STAT PRN; Protocol PRN Reason: Hypoglycemia Protocol Dextrose (Glutose 15) 0 gm PO ONCE PRN; Protocol PRN Reason: Hypoglycemia Protocol Diphenhydramine HCl (Benadryl) 25 mg PO Q8 PRN PRN Reason: Allergy symptoms Last Admin: 05/29/18 21:23 Dose: 25 mg Enalapril Maleate (Vasotec) 2.5 mg PO DAILY [facility] Last Admin: 06/03/18 09:18 Dose: 2.5 mg Glucagon (Glucagen Diagnostic Kit) 0 mg IM STAT PRN; Protocol PRN Reason: Hypoglycemia Protocol Ferric Sodium Gluconate Complex 125 mg/ Sodium Chloride 110 mls @ 110 mls/hr IVPB Q24H [facility] Stop: 06/08/18 10:01 Last Admin: 06/03/18 11:00 Dose: 110 mls/hr Insulin Human Regular (Novolin R) 0 unit SC ACHS [facility] PRN Reason: Protocol Last Admin: 06/03/18 21:26 Dose: Not Given Lactulose (Enulose) 20 gm PO BID [facility] Last Admin: 06/03/18 17:25 Dose: 20 gm Losartan Potassium (Cozaar) 25 mg PO DAILY [facility] Last Admin: 06/03/18 09:01 Dose: 25 mg Metformin HCl (Glucophage) 500 mg PO BID [facility] Last Admin: 06/03/18 17:26 Dose: 500 mg Methylprednisolone (Solu-Medrol) 40 mg IVPB Q8 [facility] Last Admin: 06/03/18 21:49 Dose: 40 mg Montelukast Sodium (Singulair) 10 mg PO [facility] Last Admin: 06/03/18 21:49 Dose: 10 mg Ondansetron HCl (Zofran Inj) 4 mg IVP Q8 PRN PRN Reason: Nausea/Vomiting Last Admin: 05/28/18 17:09 Dose: 4 mg Sertraline HCl (Zoloft) 50 mg PO DAILY [facility] Last Admin: 06/03/18 09:01 Dose: 50 mg Spironolactone (Aldactone) 12.5 mg PO BID [facility] Last Admin: 06/03/18 17:26 Dose: 12.5 mg Thiamine HCl (Vitamin B1 Tab) 100 mg PO DAILY [facility] Last Admin: 06/03/18 09:01 Dose: 100 mg Tramadol HCl (Ultram) 50 mg PO Q6H PRN PRN Reason: Pain, moderate (4-7) Last Admin: 06/02/18 05:48 Dose: 50 mg Trazodone HCl (Desyrel) 50 mg PO [facility] Last Admin: 06/03/18 21:49 Dose: 50 mg - Labs Labs: 06/01/18 11:25 06/01/18 11:25 PT 13.7 SECONDS (9.7-12.2) H 06/01/18 17:06 INR 1.3 06/01/18 17:06 APTT 26 SECONDS (21-34) 05/27/18 19:52 - Head Exam Head Exam: ATRAUMATIC - Eye Exam Eye Exam: Normal appearance - ENT Exam ENT Exam: Mucous Membranes Dry - Respiratory Exam Respiratory Exam: NORMAL BREATHING PATTERN - Cardiovascular Exam Cardiovascular Exam: +S1, +S2 - GI/Abdominal Exam GI & Abdominal Exam: Normal Bowel Sounds Assessment and Plan (1) Anemia Assessment & Plan: EGD shows no active bleeding borderline iron stores; on IV iron liver cirrhosis Status: Acute (2) Thrombocytopenia Assessment & Plan: secondary to liver cirrhosis Status: Acute
--- NOTE | 2018-06-04 00:59 | PN ---
DATE: 06/04/2018 SUBJECTIVE: The patient is experiencing shortness of breath. PHYSICAL EXAMINATION: VITAL SIGNS: Blood pressure 114/70, heart rate 105, temperature 97.5, respirations 20. HEENT: Pale conjunctivae. CHEST: Scattered bilateral wheezing. HEART: S1 and S2, regular. EXTREMITIES: Significant ecchymosis and bruising. LABORATORY DATA: Today's blood sugar is 166, 206, and 216. ASSESSMENT: 1. Alcoholic liver disease. 2. Bronchospasm. 3. Gastroparesis. 4. Anemia. RECOMMENDATIONS: Continue Aldactone 12.5 mg twice a day, Cozaar 25 mg once a day, lactulose 20 mg p.o. twice a day, Glucophage 500 mg twice a day, Librium at 50 mg every 6 hours p.r.n., Solu-Medrol 40 mg intravenously every 8 hours, thiamine 100 mg once a day, albuterol inhaler, and I will obtain a portable chest x-ray. Brandon Mcmahon MD
[2018-06-04] MEDS: MethylPREDNISolone 40 mg Vial IVPB SCH ×3 (05:40→21:44)
[2018-06-04] MEDS: Albuterol-Ipratrop 3 mg / 0.5 (3 ml) UD INH SCH ×2 (07:28→20:23)
[2018-06-04] MEDS: (Novolin R) Insulin Human Regular 100 units/ml vial SC SCH ×4 (08:48→21:49)
--- NOTE | 2018-06-04 08:57 | RAD ---
Date of service: 06/03/2018 HISTORY: Shortness of breath COMPARISON: 05/27/2018. FINDINGS: LUNGS: The lungs are well inflated. There is mild pulmonary venous congestion. PLEURA: No significant pleural effusion identified, no pneumothorax apparent. CARDIOVASCULAR: Normal. OSSEOUS STRUCTURES: No significant abnormalities. VISUALIZED UPPER ABDOMEN: Normal. OTHER FINDINGS: None. IMPRESSION: No acute findings.
[2018-06-04] MEDS: Ferric Sodium Gluconat Complex 125 MG in Sodium Chloride 0.9% 100 ML IVPB SCH (10:01)
--- NOTE | 2018-06-04 18:29 | CP.PCM.PN ---
Subjective - Date & Time of Evaluation Date of Evaluation: 06/04/18 Time of Evaluation: 09:45 - Subjective Subjective: clinically same Objective - Vital Signs/Intake and Output Vital Signs (last 24 hours): Temp Pulse Resp BP Pulse Ox 98.4 F 86 20 116/54 L 99 06/04/18 16:00 06/04/18 16:00 06/04/18 16:00 06/04/18 17:14 06/04/18 16:00 Intake and Output: 06/04/18 06/04/18 06:59 18:59 Intake Total 100 Balance 100 - Medications Medications: Current Medications Albuterol (Ventolin Hfa 90 Mcg/Actuation (8 G)) 2 puff IH Q6 PRN PRN Reason: Shortness of Breath Albuterol/Ipratropium (Duoneb 3 Mg/0.5 Mg (3 Ml) Ud) 3 ml INH RQ12 [facility] Last Admin: 06/04/18 07:28 Dose: 3 ml Azithromycin (Zithromax) 500 mg PO DAILY [facility] Last Admin: 06/04/18 10:02 Dose: 500 mg Chlordiazepoxide (Librium) 50 mg PO Q6H PRN PRN Reason: Alcohol Withdrawal Last Admin: 05/30/18 00:24 Dose: 50 mg Dextrose (Dextrose 50% Inj) 0 ml IV STAT PRN; Protocol PRN Reason: Hypoglycemia Protocol Dextrose (Glutose 15) 0 gm PO ONCE PRN; Protocol PRN Reason: Hypoglycemia Protocol Diphenhydramine HCl (Benadryl) 25 mg PO Q8 PRN PRN Reason: Allergy symptoms Last Admin: 05/29/18 21:23 Dose: 25 mg Enalapril Maleate (Vasotec) 2.5 mg PO DAILY [facility] Last Admin: 06/04/18 10:03 Dose: Not Given Glucagon (Glucagen Diagnostic Kit) 0 mg IM STAT PRN; Protocol PRN Reason: Hypoglycemia Protocol Ferric Sodium Gluconate Complex 125 mg/ Sodium Chloride 110 mls @ 110 mls/hr IVPB Q24H [facility] Stop: 06/08/18 10:01 Last Admin: 06/04/18 10:01 Dose: 110 mls/hr Insulin Human Regular (Novolin R) 0 unit SC ACHS [facility] PRN Reason: Protocol Last Admin: 06/04/18 17:20 Dose: 2 unit Lactulose (Enulose) 20 gm PO BID [facility] Last Admin: 06/04/18 17:14 Dose: 20 gm Losartan Potassium (Cozaar) 25 mg PO DAILY [facility] Last Admin: 06/04/18 10:03 Dose: Not Given Metformin HCl (Glucophage) 500 mg PO BID [facility] Last Admin: 06/04/18 17:14 Dose: 500 mg Methylprednisolone (Solu-Medrol) 40 mg IVPB Q8 [facility] Last Admin: 06/04/18 14:40 Dose: 40 mg Montelukast Sodium (Singulair) 10 mg PO [facility] Last Admin: 06/03/18 21:49 Dose: 10 mg Ondansetron HCl (Zofran Inj) 4 mg IVP Q8 PRN PRN Reason: Nausea/Vomiting Last Admin: 05/28/18 17:09 Dose: 4 mg Sertraline HCl (Zoloft) 50 mg PO DAILY [facility] Last Admin: 06/04/18 10:01 Dose: 50 mg Spironolactone (Aldactone) 12.5 mg PO BID [facility] Last Admin: 06/04/18 10:09 Dose: 12.5 mg Thiamine HCl (Vitamin B1 Tab) 100 mg PO DAILY [facility] Last Admin: 06/04/18 10:02 Dose: 100 mg Tramadol HCl (Ultram) 50 mg PO Q6H PRN PRN Reason: Pain, moderate (4-7) Last Admin: 06/02/18 05:48 Dose: 50 mg Trazodone HCl (Desyrel) 50 mg PO [facility] Last Admin: 06/03/18 21:49 Dose: 50 mg - Labs Labs: 06/01/18 11:25 06/01/18 11:25 PT 13.7 SECONDS (9.7-12.2) H 06/01/18 17:06 INR 1.3 06/01/18 17:06 APTT 26 SECONDS (21-34) 05/27/18 19:52 - Constitutional Appears: Well - Head Exam Head Exam: ATRAUMATIC, NORMAL INSPECTION, NORMOCEPHALIC - Eye Exam Eye Exam: EOMI, Normal appearance, PERRL Pupil Exam: NORMAL ACCOMODATION, PERRL - ENT Exam ENT Exam: Mucous Membranes Moist, Normal Exam - Neck Exam Neck Exam: Full ROM, Normal Inspection. absent: Lymphadenopathy - Respiratory Exam Respiratory Exam: Decreased Breath Sounds - Cardiovascular Exam Cardiovascular Exam: REGULAR RHYTHM, +S1, +S2 - GI/Abdominal Exam GI & Abdominal Exam: Soft, Diminished Bowel Sounds - Rectal Exam Rectal Exam: Deferred
--- NOTE | 2018-06-04 21:27 | PN ---
DATE: 06/04/2018 SUBJECTIVE: The patient's shortness of breath improved. She complains of abdominal distention and discomfort. PHYSICAL EXAMINATION: VITAL SIGNS: Blood pressure 106/58, heart rate 87, temperature 97.4, respirations 20. HEENT: Pale conjunctivae. CHEST: Bilateral rhonchi. HEART: S1 and S2 are regular. ABDOMEN: Mild ascites with ecchymosis involving the anterior abdominal wall. EXTREMITIES: 1+ leg edema with significant ecchymosis of the four extremities. DIAGNOSTIC DATA: Portable chest x-ray was . There were prominent bronchovascular markings. ASSESSMENT: 1. Alcoholic liver disease. 2. Status post alcohol intoxication. 3. Chronic obstructive lung disease. 4. Anemia and thrombocytopenia. 5. Uncontrolled diabetes mellitus. 6. Gastric varices. RECOMMENDATIONS: Continue Aldactone 12.5 mg twice a day, lactulose 20 mg p.o. twice a day, metformin 500 mg twice a day, Librium 50 mg every 6 hours p.r.n., Solu-Medrol 40 mg intravenously every 8 hours, Zithromax 500 mg orally daily, thiamine 100 mg daily. I will administer her one dose of Lasix 40 mg IV push now. Discontinue telemetry. Brandon Mcmahon MD
--- NOTE | 2018-06-04 22:03 | CP.PCM.PN ---
Subjective - Date & Time of Evaluation Date of Evaluation: 06/04/18 Time of Evaluation: 18:45 - Subjective Subjective: No complaints. Objective - Vital Signs/Intake and Output Vital Signs (last 24 hours): Temp Pulse Resp BP Pulse Ox 98.4 F 86 20 116/54 L 99 06/04/18 16:00 06/04/18 16:00 06/04/18 16:00 06/04/18 17:14 06/04/18 16:00 - Medications Medications: Current Medications Albuterol (Ventolin Hfa 90 Mcg/Actuation (8 G)) 2 puff IH Q6 PRN PRN Reason: Shortness of Breath Albuterol/Ipratropium (Duoneb 3 Mg/0.5 Mg (3 Ml) Ud) 3 ml INH RQ12 [facility] [place] Last Admin: 06/04/18 20:23 Dose: 3 ml Azithromycin (Zithromax) 500 mg PO DAILY [facility] [place] Last Admin: 06/04/18 10:02 Dose: 500 mg Chlordiazepoxide (Librium) 50 mg PO Q6H PRN PRN Reason: Alcohol Withdrawal Last Admin: 05/30/18 00:24 Dose: 50 mg Dextrose (Dextrose 50% Inj) 0 ml IV STAT PRN; Protocol PRN Reason: Hypoglycemia Protocol Dextrose (Glutose 15) 0 gm PO ONCE PRN; Protocol PRN Reason: Hypoglycemia Protocol Diphenhydramine HCl (Benadryl) 25 mg PO Q8 PRN PRN Reason: Allergy symptoms Last Admin: 05/29/18 21:23 Dose: 25 mg Enalapril Maleate (Vasotec) 2.5 mg PO DAILY [facility] [place] Last Admin: 06/04/18 10:03 Dose: Not Given Glucagon (Glucagen Diagnostic Kit) 0 mg IM STAT PRN; Protocol PRN Reason: Hypoglycemia Protocol Ferric Sodium Gluconate Complex 125 mg/ Sodium Chloride 110 mls @ 110 mls/hr IVPB Q24H [facility] [place] Stop: 06/08/18 10:01 Last Admin: 06/04/18 10:01 Dose: 110 mls/hr Insulin Human Regular (Novolin R) 0 unit SC ACHS JESSE PRN Reason: Protocol Last Admin: 06/04/18 21:49 Dose: Not Given Lactulose (Enulose) 20 gm PO BID [facility] [place] Last Admin: 06/04/18 17:14 Dose: 20 gm Losartan Potassium (Cozaar) 25 mg PO DAILY [facility] [place] Last Admin: 06/04/18 10:03 Dose: Not Given Metformin HCl (Glucophage) 500 mg PO BID [facility] [place] Last Admin: 06/04/18 17:14 Dose: 500 mg Methylprednisolone (Solu-Medrol) 40 mg IVPB Q8 [facility] [place] Last Admin: 06/04/18 21:44 Dose: 40 mg Montelukast Sodium (Singulair) 10 mg PO HS [facility] [place] Last Admin: 06/04/18 21:45 Dose: 10 mg Ondansetron HCl (Zofran Inj) 4 mg IVP Q8 PRN PRN Reason: Nausea/Vomiting Last Admin: 05/28/18 17:09 Dose: 4 mg Sertraline HCl (Zoloft) 50 mg PO DAILY [facility] [place] Last Admin: 06/04/18 10:01 Dose: 50 mg Spironolactone (Aldactone) 12.5 mg PO BID [facility] [place] Last Admin: 06/04/18 21:42 Dose: Not Given Thiamine HCl (Vitamin B1 Tab) 100 mg PO DAILY [facility] [place] Last Admin: 06/04/18 10:02 Dose: 100 mg Tramadol HCl (Ultram) 50 mg PO Q6H PRN PRN Reason: Pain, moderate (4-7) Last Admin: 06/02/18 05:48 Dose: 50 mg Trazodone HCl (Desyrel) 50 mg PO [facility] Last Admin: 06/04/18 21:44 Dose: 50 mg - Labs Labs: 06/01/18 11:25 06/01/18 11:25 PT 13.7 SECONDS (9.7-12.2) H 06/01/18 17:06 INR 1.3 06/01/18 17:06 APTT 26 SECONDS (21-34) 05/27/18 19:52 - Head Exam Head Exam: ATRAUMATIC - Eye Exam Eye Exam: Normal appearance - ENT Exam ENT Exam: Mucous Membranes Dry - Respiratory Exam Respiratory Exam: NORMAL BREATHING PATTERN - Cardiovascular Exam Cardiovascular Exam: +S1, +S2 - GI/Abdominal Exam GI & Abdominal Exam: Normal Bowel Sounds Assessment and Plan (1) Anemia Assessment & Plan: EGD shows no active bleeding borderline iron stores; on IV iron liver cirrhosis Status: Acute (2) Thrombocytopenia Assessment & Plan: secondary to liver cirrhosis Status: Acute
[2018-06-05] MEDS: MethylPREDNISolone 40 mg Vial IVPB SCH (06:00)
[2018-06-05] MEDS: (Novolin R) Insulin Human Regular 100 units/ml vial SC SCH ×4 (08:30→21:19)
[2018-06-05] MEDS: Albuterol-Ipratrop 3 mg / 0.5 (3 ml) UD INH SCH ×2 (09:18→19:54)
[2018-06-05] MEDS: Ferric Sodium Gluconat Complex 125 MG in Sodium Chloride 0.9% 100 ML IVPB SCH (10:59)
--- NOTE | 2018-06-05 12:42 | CP.PCM.PN ---
Subjective - Date & Time of Evaluation Date of Evaluation: 06/05/18 Time of Evaluation: 10:00 - Subjective Subjective: clinically same Objective - Vital Signs/Intake and Output Vital Signs (last 24 hours): Temp Pulse Resp BP Pulse Ox 97.8 F 74 20 119/66 97 06/05/18 07:15 06/05/18 07:15 06/05/18 07:15 06/05/18 11:00 06/05/18 07:15 Intake and Output: 06/05/18 06/05/18 06:59 18:59 Intake Total 300 Balance 300 - Medications Medications: Current Medications Albuterol (Ventolin Hfa 90 Mcg/Actuation (8 G)) 2 puff IH Q6 PRN PRN Reason: Shortness of Breath Albuterol/Ipratropium (Duoneb 3 Mg/0.5 Mg (3 Ml) Ud) 3 ml INH RQ12 [facility] Last Admin: 06/05/18 09:18 Dose: 3 ml Azithromycin (Zithromax) 500 mg PO DAILY [facility] Last Admin: 06/05/18 11:01 Dose: 500 mg Chlordiazepoxide (Librium) 50 mg PO Q6H PRN PRN Reason: Alcohol Withdrawal Last Admin: 05/30/18 00:24 Dose: 50 mg Dextrose (Dextrose 50% Inj) 0 ml IV STAT PRN; Protocol PRN Reason: Hypoglycemia Protocol Dextrose (Glutose 15) 0 gm PO ONCE PRN; Protocol PRN Reason: Hypoglycemia Protocol Diphenhydramine HCl (Benadryl) 25 mg PO Q8 PRN PRN Reason: Allergy symptoms Last Admin: 05/29/18 21:23 Dose: 25 mg Enalapril Maleate (Vasotec) 2.5 mg PO DAILY [facility] Last Admin: 06/05/18 11:00 Dose: 2.5 mg Glucagon (Glucagen Diagnostic Kit) 0 mg IM STAT PRN; Protocol PRN Reason: Hypoglycemia Protocol Ferric Sodium Gluconate Complex 125 mg/ Sodium Chloride 110 mls @ 110 mls/hr IVPB Q24H [facility] Stop: 06/08/18 10:01 Last Admin: 06/05/18 10:59 Dose: 110 mls/hr Insulin Human Regular (Novolin R) 0 unit SC ACHS JESSE PRN Reason: Protocol Last Admin: 06/05/18 08:30 Dose: 2 unit Lactulose (Enulose) 20 gm PO BID [facility] Last Admin: 06/05/18 10:59 Dose: 20 gm Losartan Potassium (Cozaar) 25 mg PO DAILY [facility] Last Admin: 06/05/18 11:02 Dose: 25 mg Metformin HCl (Glucophage) 500 mg PO BID [facility] Last Admin: 06/05/18 11:00 Dose: 500 mg Methylprednisolone (Solu-Medrol) 40 mg IVPB Q8 [facility] Last Admin: 06/05/18 06:00 Dose: 40 mg Montelukast Sodium (Singulair) 10 mg PO [facility] Last Admin: 06/04/18 21:45 Dose: 10 mg Ondansetron HCl (Zofran Inj) 4 mg IVP Q8 PRN PRN Reason: Nausea/Vomiting Last Admin: 05/28/18 17:09 Dose: 4 mg Sertraline HCl (Zoloft) 50 mg PO DAILY [facility] Last Admin: 06/05/18 11:00 Dose: 50 mg Spironolactone (Aldactone) 12.5 mg PO BID [facility] Last Admin: 06/05/18 11:00 Dose: 12.5 mg Thiamine HCl (Vitamin B1 Tab) 100 mg PO DAILY [facility] Last Admin: 06/05/18 11:00 Dose: 100 mg Tramadol HCl (Ultram) 50 mg PO Q6H PRN PRN Reason: Pain, moderate (4-7) Last Admin: 06/02/18 05:48 Dose: 50 mg Trazodone HCl (Desyrel) 50 mg PO [facility] Last Admin: 06/04/18 21:44 Dose: 50 mg - Labs Labs: 06/01/18 11:25 06/01/18 11:25 PT 13.7 SECONDS (9.7-12.2) H 06/01/18 17:06 INR 1.3 06/01/18 17:06 APTT 26 SECONDS (21-34) 05/27/18 19:52 - Constitutional Appears: Well - Head Exam Head Exam: ATRAUMATIC, NORMAL INSPECTION, NORMOCEPHALIC - Eye Exam Eye Exam: EOMI, Normal appearance, PERRL Pupil Exam: NORMAL ACCOMODATION, PERRL - ENT Exam ENT Exam: Mucous Membranes Moist, Normal Exam - Neck Exam Neck Exam: Full ROM, Normal Inspection. absent: Lymphadenopathy - Respiratory Exam Respiratory Exam: Decreased Breath Sounds - Cardiovascular Exam Cardiovascular Exam: REGULAR RHYTHM, +S1, +S2 - GI/Abdominal Exam GI & Abdominal Exam: Soft, Diminished Bowel Sounds - Rectal Exam Rectal Exam: Deferred
--- NOTE | 2018-06-05 13:01 | CP.PCM.PN ---
Subjective - Date & Time of Evaluation Date of Evaluation: 06/05/18 Time of Evaluation: 12:00 - Subjective Subjective: No complaints. Objective - Vital Signs/Intake and Output Vital Signs (last 24 hours): Temp Pulse Resp BP Pulse Ox 97.8 F 74 20 119/66 97 06/05/18 07:15 06/05/18 07:15 06/05/18 07:15 06/05/18 11:00 06/05/18 07:15 Intake and Output: 06/05/18 06/05/18 06:59 18:59 Intake Total 300 Balance 300 - Medications Medications: Current Medications Albuterol (Ventolin Hfa 90 Mcg/Actuation (8 G)) 2 puff IH Q6 PRN PRN Reason: Shortness of Breath Albuterol/Ipratropium (Duoneb 3 Mg/0.5 Mg (3 Ml) Ud) 3 ml INH RQ12 [facility] Last Admin: 06/05/18 09:18 Dose: 3 ml Azithromycin (Zithromax) 500 mg PO DAILY [facility] Last Admin: 06/05/18 11:01 Dose: 500 mg Chlordiazepoxide (Librium) 50 mg PO Q6H PRN PRN Reason: Alcohol Withdrawal Last Admin: 05/30/18 00:24 Dose: 50 mg Dextrose (Dextrose 50% Inj) 0 ml IV STAT PRN; Protocol PRN Reason: Hypoglycemia Protocol Dextrose (Glutose 15) 0 gm PO ONCE PRN; Protocol PRN Reason: Hypoglycemia Protocol Diphenhydramine HCl (Benadryl) 25 mg PO Q8 PRN PRN Reason: Allergy symptoms Last Admin: 05/29/18 21:23 Dose: 25 mg Enalapril Maleate (Vasotec) 2.5 mg PO DAILY [facility] Last Admin: 06/05/18 11:00 Dose: 2.5 mg Glucagon (Glucagen Diagnostic Kit) 0 mg IM STAT PRN; Protocol PRN Reason: Hypoglycemia Protocol Ferric Sodium Gluconate Complex 125 mg/ Sodium Chloride 110 mls @ 110 mls/hr IVPB Q24H [facility] Stop: 06/08/18 10:01 Last Admin: 06/05/18 10:59 Dose: 110 mls/hr Insulin Human Regular (Novolin R) 0 unit SC ACHS JESSE PRN Reason: Protocol Last Admin: 06/05/18 12:25 Dose: 8 unit Lactulose (Enulose) 20 gm PO BID [facility] Last Admin: 06/05/18 10:59 Dose: 20 gm Losartan Potassium (Cozaar) 25 mg PO DAILY [facility] Last Admin: 06/05/18 11:02 Dose: 25 mg Metformin HCl (Glucophage) 500 mg PO BID [facility] Last Admin: 06/05/18 11:00 Dose: 500 mg Methylprednisolone (Solu-Medrol) 40 mg IVPB Q8 [facility] Last Admin: 06/05/18 06:00 Dose: 40 mg Montelukast Sodium (Singulair) 10 mg PO [facility] Last Admin: 06/04/18 21:45 Dose: 10 mg Ondansetron HCl (Zofran Inj) 4 mg IVP Q8 PRN PRN Reason: Nausea/Vomiting Last Admin: 05/28/18 17:09 Dose: 4 mg Sertraline HCl (Zoloft) 50 mg PO DAILY [facility] Last Admin: 06/05/18 11:00 Dose: 50 mg Spironolactone (Aldactone) 12.5 mg PO BID [facility] Last Admin: 06/05/18 11:00 Dose: 12.5 mg Thiamine HCl (Vitamin B1 Tab) 100 mg PO DAILY [facility] Last Admin: 06/05/18 11:00 Dose: 100 mg Tramadol HCl (Ultram) 50 mg PO Q6H PRN PRN Reason: Pain, moderate (4-7) Last Admin: 06/02/18 05:48 Dose: 50 mg Trazodone HCl (Desyrel) 50 mg PO [facility] Last Admin: 06/04/18 21:44 Dose: 50 mg - Labs Labs: 06/01/18 11:25 06/01/18 11:25 PT 13.7 SECONDS (9.7-12.2) H 06/01/18 17:06 INR 1.3 06/01/18 17:06 APTT 26 SECONDS (21-34) 05/27/18 19:52 - Head Exam Head Exam: ATRAUMATIC - Eye Exam Eye Exam: Normal appearance - ENT Exam ENT Exam: Mucous Membranes Dry - Respiratory Exam Respiratory Exam: NORMAL BREATHING PATTERN - Cardiovascular Exam Cardiovascular Exam: +S1, +S2 - GI/Abdominal Exam GI & Abdominal Exam: Normal Bowel Sounds Assessment and Plan (1) Anemia Assessment & Plan: EGD shows no active bleeding borderline iron stores; on IV iron liver cirrhosis Status: Acute (2) Thrombocytopenia Assessment & Plan: secondary to liver cirrhosis Status: Acute
--- NOTE | 2018-06-05 15:26 | CP.PCM.PN ---
Subjective - Date & Time of Evaluation Date of Evaluation: 06/05/18 Time of Evaluation: 15:26 - Subjective Subjective: PATIENT SEEN AND EXAMINED AT THE BEDSIDE Objective - Vital Signs/Intake and Output Vital Signs (last 24 hours): Temp Pulse Resp BP Pulse Ox 97.8 F 74 20 119/66 97 06/05/18 07:15 06/05/18 07:15 06/05/18 07:15 06/05/18 11:00 06/05/18 07:15 Intake and Output: 06/05/18 06/05/18 06:59 18:59 Intake Total 300 Balance 300 - Medications Medications: Current Medications Albuterol (Ventolin Hfa 90 Mcg/Actuation (8 G)) 2 puff IH Q6 PRN PRN Reason: Shortness of Breath Albuterol/Ipratropium (Duoneb 3 Mg/0.5 Mg (3 Ml) Ud) 3 ml INH RQ12 [facility] Last Admin: 06/05/18 09:18 Dose: 3 ml Azithromycin (Zithromax) 500 mg PO DAILY [facility] Last Admin: 06/05/18 11:01 Dose: 500 mg Chlordiazepoxide (Librium) 50 mg PO Q6H PRN PRN Reason: Alcohol Withdrawal Last Admin: 05/30/18 00:24 Dose: 50 mg Dextrose (Dextrose 50% Inj) 0 ml IV STAT PRN; Protocol PRN Reason: Hypoglycemia Protocol Dextrose (Glutose 15) 0 gm PO ONCE PRN; Protocol PRN Reason: Hypoglycemia Protocol Diphenhydramine HCl (Benadryl) 25 mg PO Q8 PRN PRN Reason: Allergy symptoms Last Admin: 05/29/18 21:23 Dose: 25 mg Enalapril Maleate (Vasotec) 2.5 mg PO DAILY [facility] Last Admin: 06/05/18 11:00 Dose: 2.5 mg Glucagon (Glucagen Diagnostic Kit) 0 mg IM STAT PRN; Protocol PRN Reason: Hypoglycemia Protocol Ferric Sodium Gluconate Complex 125 mg/ Sodium Chloride 110 mls @ 110 mls/hr IVPB Q24H [facility] Stop: 06/08/18 10:01 Last Admin: 06/05/18 10:59 Dose: 110 mls/hr Insulin Human Regular (Novolin R) 0 unit SC ACHS JESSE PRN Reason: Protocol Last Admin: 06/05/18 12:25 Dose: 8 unit Lactulose (Enulose) 20 gm PO BID [facility] Last Admin: 06/05/18 10:59 Dose: 20 gm Losartan Potassium (Cozaar) 25 mg PO DAILY [facility] Last Admin: 06/05/18 11:02 Dose: 25 mg Metformin HCl (Glucophage) 500 mg PO BID [facility] Last Admin: 06/05/18 11:00 Dose: 500 mg Methylprednisolone (Solu-Medrol) 40 mg IVP Q8 [facility] Montelukast Sodium (Singulair) 10 mg PO [facility] Last Admin: 06/04/18 21:45 Dose: 10 mg Ondansetron HCl (Zofran Inj) 4 mg IVP Q8 PRN PRN Reason: Nausea/Vomiting Last Admin: 05/28/18 17:09 Dose: 4 mg Sertraline HCl (Zoloft) 50 mg PO DAILY [facility] Last Admin: 06/05/18 11:00 Dose: 50 mg Spironolactone (Aldactone) 12.5 mg PO BID [facility] Last Admin: 06/05/18 11:00 Dose: 12.5 mg Thiamine HCl (Vitamin B1 Tab) 100 mg PO DAILY [facility] Last Admin: 06/05/18 11:00 Dose: 100 mg Tramadol HCl (Ultram) 50 mg PO Q6H PRN PRN Reason: Pain, moderate (4-7) Last Admin: 06/02/18 05:48 Dose: 50 mg Trazodone HCl (Desyrel) 50 mg PO [facility] Last Admin: 06/04/18 21:44 Dose: 50 mg - Labs Labs: 06/01/18 11:25 06/01/18 11:25 PT 13.7 SECONDS (9.7-12.2) H 06/01/18 17:06 INR 1.3 06/01/18 17:06 APTT 26 SECONDS (21-34) 05/27/18 19:52 Assessment and Plan - Assessment and Plan (Free Text) Assessment: FOLLOWW UP WITH DR Brian BURNS IN 1-2 WEEK AT HIS OFFICE ---CALL FOR APPOINTMENT FOLLOW UP WITH DR BENAVIDES IN HIS OFFICE ----CALL FOR APPOINTMENT FOLLOW UP WITH DR FALK IN HIS OFFICE ---CALL FOR APPOINTMENT [facility] MEDICATION ORDER NEW PRESCRITPTION GIVEN ZITHROMYCIN 500 MG BY MOUTH DAILY FOR 4 MORE DAYS BACID ONE TAB BY MOUTH DAILY FOR 4 MORE DAYS MEDROL DOSE PACK DIRECTED TRAZODONE 50 MG PO AT NIGHT BY MOUTH ACTIVITY TOLERATED CALL DR Brian BURNS OR GO TO THE EMERGENCY ROOM IF SYMPTOMS RETURN OR WORSENING
[2018-06-05 17:37] LABS: BASO % 0.1 % (0.0-2.0); HEMOGLOBIN 10.1 g/dL (11.0-16.0); LYMPH # 0.8 K/uL (1.0-4.3); LYMPH % 9.1 % (20.0-40.0); MEAN CELL VOLUME 96.3 fL (81.0-99.0); MEAN CORPUSCULAR HEMOGLOBIN 32.7 pg (27.0-31.0); MONO # 0.9 K/uL (0.0-0.8); MONO % 10.5 % (0.0-10.0); NEUT % 80.3 % (50.0-75.0); NRBC % 0.6 % (0.0-2.0); PLATELET COUNT 97 K/uL (130-400); RBC 3.08 Mil/uL (3.80-5.20); RED CELL DISTRIBUTION WIDTH 22.5 % (11.5-14.5); WHITE BLOOD COUNT 8.7 K/uL (4.8-10.8)
[2018-06-05 17:57] LABS: ALB/GLOB RATIO 1.3 (1.0-2.1); ALBUMIN 3.1 g/dL (3.5-5.0); ALT/SGPT 100 U/L (9-52); AST/SGOT 57 U/L (14-36); BLOOD UREA NITROGEN 13 mg/dL (7-17); CALCIUM 8.3 mg/dl (8.6-10.4); GFR NON-AFRICAN AMERICAN > 60
[2018-06-05 19:26] LABS: BANDS 1 % (0-2); LYMPHOCYTE 12 % (20-40); MONOCYTE 7 % (0-10); NEUTROPHIL 80 % (50-75); PLATELET ESTIMATE DECREASED (NORMAL); TOTAL CELLS COUNTED 100
[2018-06-05 19:27] LABS: ANISOCYTOSIS SLIGHT; HYPOCHROMIC SLIGHT; MICROCYTOSIS SLIGHT; POIKILOCYTOSIS SLIGHT
--- NOTE | 2018-06-05 19:55 | PN ---
DATE: 06/05/2018 SUBJECTIVE: The patient is short of breath and mildly wheezing. PHYSICAL EXAMINATION: VITAL SIGNS: Blood pressure 119/66, heart rate 74, temperature 97.8, respirations 20. HEENT: Pale conjunctivae. CHEST: Bilateral scattered wheezing. HEART: S1 and S2 regular. ABDOMEN: Moderate ascites. EXTREMITIES: Trace leg edema. LABORATORY DATA: Today's blood sugars are 189 and 383. ASSESSMENT: 1. Status post alcohol intoxication. 2. Alcoholic liver disease. 3. Chronic obstructive lung disease. 4. Anemia and thrombocytopenia. 5. Portal hypertension and gastric varices. 6. Uncontrolled diabetes mellitus. RECOMMENDATIONS: Case was discussed with ENVIRONMENTAL [employer]INEER SCIENTIST. The patient is not a suitable candidate for shelter anticoagulation given her acute anemia, portal hypertension, esophageal varices, continued alcohol abuse and continued alcohol intoxication as the medications may cause more harm than provide benefits. Continue Aldactone 12.5 mg twice a day, Cozaar 25 mg once a day, mg once a day, albuterol inhaler or Zithromax 500 mg daily. The patient is not a suitable candidate for Inderal given her bronchospasm. Brandon Mcmahon MD
[2018-06-05] MEDS: MethylPREDNISolone 40 mg Vial IVP SCH (21:32)
[2018-06-06 00:48] VITALS: TEMP 98; O2SAT 95
[2018-06-06] MEDS: MethylPREDNISolone 40 mg Vial IVP SCH (05:30)
[2018-06-06] MEDS: Albuterol-Ipratrop 3 mg / 0.5 (3 ml) UD INH SCH (07:25)
[2018-06-06] MEDS: (Novolin R) Insulin Human Regular 100 units/ml vial SC SCH ×2 (08:12→12:00)
[2018-06-06 08:20] VITALS: BP 112/74; PULSE 88
[2018-06-06] MEDS: Ferric Sodium Gluconat Complex 125 MG in Sodium Chloride 0.9% 100 ML IVPB SCH (10:34)
--- NOTE | 2018-06-06 13:06 | CP.PCM.PN ---
Subjective - Date & Time of Evaluation Date of Evaluation: 06/06/18 Time of Evaluation: 10:00 - Subjective Subjective: clinically same Objective - Vital Signs/Intake and Output Vital Signs (last 24 hours): Temp Pulse Resp BP Pulse Ox 98.0 F 88 20 112/74 95 06/06/18 08:00 06/06/18 08:00 06/06/18 08:00 06/06/18 10:19 06/06/18 08:00 - Medications Medications: Current Medications Albuterol (Ventolin Hfa 90 Mcg/Actuation (8 G)) 2 puff IH Q6 PRN PRN Reason: Shortness of Breath Albuterol/Ipratropium (Duoneb 3 Mg/0.5 Mg (3 Ml) Ud) 3 ml INH RQ12 [facility] Last Admin: 06/06/18 07:25 Dose: 3 ml Azithromycin (Zithromax) 500 mg PO DAILY [facility] Last Admin: 06/06/18 10:19 Dose: 500 mg Chlordiazepoxide (Librium) 50 mg PO Q6H PRN PRN Reason: Alcohol Withdrawal Last Admin: 05/30/18 00:24 Dose: 50 mg Dextrose (Dextrose 50% Inj) 0 ml IV STAT PRN; Protocol PRN Reason: Hypoglycemia Protocol Dextrose (Glutose 15) 0 gm PO ONCE PRN; Protocol PRN Reason: Hypoglycemia Protocol Diphenhydramine HCl (Benadryl) 25 mg PO Q8 PRN PRN Reason: Allergy symptoms Last Admin: 06/05/18 23:40 Dose: 25 mg Enalapril Maleate (Vasotec) 2.5 mg PO DAILY [facility] Last Admin: 06/06/18 10:19 Dose: 2.5 mg Glucagon (Glucagen Diagnostic Kit) 0 mg IM STAT PRN; Protocol PRN Reason: Hypoglycemia Protocol Ferric Sodium Gluconate Complex 125 mg/ Sodium Chloride 110 mls @ 110 mls/hr IVPB Q24H [facility] Stop: 06/08/18 10:01 Last Admin: 06/06/18 10:34 Dose: 110 mls/hr Insulin Human Regular (Novolin R) 0 unit SC ACHS JESSE PRN Reason: Protocol Last Admin: 06/06/18 12:00 Dose: Not Given Lactulose (Enulose) 20 gm PO BID [facility] Last Admin: 06/06/18 10:18 Dose: 20 gm Losartan Potassium (Cozaar) 25 mg PO DAILY [facility] Last Admin: 06/06/18 10:18 Dose: 25 mg Metformin HCl (Glucophage) 500 mg PO BID [facility] Last Admin: 06/06/18 10:18 Dose: 500 mg Methylprednisolone (Solu-Medrol) 40 mg IVP Q8 [facility] Last Admin: 06/06/18 05:30 Dose: Not Given Montelukast Sodium (Singulair) 10 mg PO HS [facility] Last Admin: 06/05/18 21:30 Dose: 10 mg Ondansetron HCl (Zofran Inj) 4 mg IVP Q8 PRN PRN Reason: Nausea/Vomiting Last Admin: 05/28/18 17:09 Dose: 4 mg Sertraline HCl (Zoloft) 50 mg PO DAILY [facility] Last Admin: 06/06/18 10:19 Dose: 50 mg Spironolactone (Aldactone) 12.5 mg PO BID [facility] Last Admin: 06/06/18 10:18 Dose: 12.5 mg Thiamine HCl (Vitamin B1 Tab) 100 mg PO DAILY [facility] Last Admin: 06/06/18 10:19 Dose: 100 mg Tramadol HCl (Ultram) 50 mg PO Q6H PRN PRN Reason: Pain, moderate (4-7) Last Admin: 06/02/18 05:48 Dose: 50 mg Trazodone HCl (Desyrel) 50 mg PO HS [facility] Last Admin: 06/05/18 21:30 Dose: 50 mg - Labs Labs: 06/05/18 17:31 06/05/18 17:23 PT 13.7 SECONDS (9.7-12.2) H 06/01/18 17:06 INR 1.3 06/01/18 17:06 APTT 26 SECONDS (21-34) 05/27/18 19:52
--- NOTE | 2018-06-07 23:11 | CP.PCM.PN ---
Subjective - Date & Time of Evaluation Date of Evaluation: 06/06/18 Time of Evaluation: 12:05 - Subjective Subjective: Feeling better Objective - Vital Signs/Intake and Output Vital Signs (last 24 hours): Temp Pulse Resp BP Pulse Ox 98.0 F 88 20 112/74 95 06/06/18 08:00 06/06/18 08:00 06/06/18 08:00 06/06/18 10:19 06/06/18 08:00 - Labs Labs: 06/05/18 17:31 06/05/18 17:23 PT 13.7 SECONDS (9.7-12.2) H 06/01/18 17:06 INR 1.3 06/01/18 17:06 APTT 26 SECONDS (21-34) 05/27/18 19:52 - Head Exam Head Exam: ATRAUMATIC - Eye Exam Eye Exam: Normal appearance - ENT Exam ENT Exam: Mucous Membranes Dry - Respiratory Exam Respiratory Exam: NORMAL BREATHING PATTERN - Cardiovascular Exam Cardiovascular Exam: +S1, +S2 - GI/Abdominal Exam GI & Abdominal Exam: Normal Bowel Sounds Assessment and Plan (1) Anemia Assessment & Plan: EGD shows no active bleeding borderline iron stores; on IV iron liver cirrhosis Status: Acute (2) Thrombocytopenia Assessment & Plan: secondary to liver cirrhosis Status: Acute
== END 2018-06-06 13:30 | disposition home or self-care (01) | DRG 872 ==
LOC: C.ER 19:23 → C.9E 21:11 → C.5S 23:18 → OBSVTOIN 05-29 15:51 → UNDODISIN 06-06 12:25 → C.5S 06-06 12:33
PROVIDERS: ADMIT Internal Medicine Nephrology; ATTEND Internal Medicine Nephrology
PROC: 0DB68ZX Excision of Stomach, Via Natural or Artificial Opening Endoscopic, Diagnostic (ICD-10-PCS; principal; 2018-06-01 08:09)
DX: A41.9 Sepsis, unspecified organism (principal); J44.0 Chronic obstructive pulmonary disease with (acute) lower respiratory infection; K76.6 Portal hypertension; I85.00 Esophageal varices without bleeding; F33.2 Major depressive disorder, recurrent severe without psychotic features; J44.1 Chronic obstructive pulmonary disease with (acute) exacerbation; K29.70 Gastritis, unspecified, without bleeding; K31.84 Gastroparesis; K21.9 Gastro-esophageal reflux disease without esophagitis; Z86.711 Personal history of pulmonary embolism; Y90.8 Blood alcohol level of 240 mg/100 ml or more; N18.9 Chronic kidney disease, unspecified; Z91.19 Patient's noncompliance with other medical treatment and regimen; Z95.1 Presence of aortocoronary bypass graft; Z95.5 Presence of coronary angioplasty implant and graft; I44.7 Left bundle-branch block, unspecified; I12.9 Hypertensive chronic kidney disease with stage 1 through stage 4 chronic kidney disease, or unspecified chronic kidney disease; I25.10 Atherosclerotic heart disease of native coronary artery without angina pectoris; I86.4 Gastric varices; F17.210 Nicotine dependence, cigarettes, uncomplicated; F10.129 Alcohol abuse with intoxication, unspecified; E78.5 Hyperlipidemia, unspecified; F31.9 Bipolar disorder, unspecified; E11.43 Type 2 diabetes mellitus with diabetic autonomic (poly)neuropathy; E11.65 Type 2 diabetes mellitus with hyperglycemia; E03.9 Hypothyroidism, unspecified; E11.22 Type 2 diabetes mellitus with diabetic chronic kidney disease; K70.30 Alcoholic cirrhosis of liver without ascites; D69.6 Thrombocytopenia, unspecified; D64.9 Anemia, unspecified; F19.10 Other psychoactive substance abuse, uncomplicated

== ENCOUNTER 2018-06-10 09:15 | Inpatient (IN) | payer MEDICARE, OTHER ==
[2018-06-10 09:15] VITALS: BMI 23.8
[2018-06-10] MEDS ORDERED: Albuterol-Ipratrop 3 mg / 0.5 (3 ml) UD ONE ×2 (09:29→09:58)
[2018-06-10] MEDS ORDERED: Albuterol-Ipratrop 3 mg / 0.5 (3 ml) UD INH STA ×2 (10:28→10:55)
[2018-06-10 10:48] LABS: BASO % 0.3 % (0.0-2.0); EOS % 0.5 % (0.0-4.0); HEMOGLOBIN 9.4 g/dL (11.0-16.0); LYMPH # 1.4 K/uL (1.0-4.3); LYMPH % 16.8 % (20.0-40.0); MEAN CORPUSCULAR HEMOGLOBIN 32.3 pg (27.0-31.0); MEAN CORPUSCULAR HGB CONC 32.9 g/dL (33.0-37.0); MEAN PLATELET VOLUME 9.1 fL (7.2-11.7); MONO # 0.8 K/uL (0.0-0.8); NEUT # 6.1 K/uL (1.8-7.0); NEUT % 72.4 % (50.0-75.0); NRBC % 0.1 % (0.0-2.0); RBC 2.91 Mil/uL (3.80-5.20); RED CELL DISTRIBUTION WIDTH 21.5 % (11.5-14.5); WHITE BLOOD COUNT 8.4 K/uL (4.8-10.8)
[2018-06-10 10:49] LABS: MEAN CELL VOLUME 98.3 fL (81.0-99.0)
--- NOTE | 2018-06-10 10:49 | C.PDOC ---
History Of Present Illness 67 year old female, with PMHx of asthma, presents to the emergency department complaining of SOB x2 days. She states she had similar symptoms to previous asthma exacerbations. Patient reports of nonproductive cough, associated with chest and back pain when coughing. Otherwise she denies fever and was never intubated. Time Seen by Provider: 06/10/18 09:27 Chief Complaint (Nursing): Shortness Of Breath History Per: Patient History/Exam Limitations: no limitations Onset/Duration Of Symptoms: Days Current Symptoms Are (Timing): Still Present Past Medical History Reviewed: Historical Data, Nursing Documentation, Vital Signs Vital Signs: Last Vital Signs Temp 97.4 F L 06/10/18 15:44 Pulse 88 06/10/18 15:44 Resp 21 06/10/18 15:44 BP 125/65 06/10/18 15:44 Pulse Ox 96 06/10/18 15:44 - Medical History PMH: Anemia, Anxiety, Arthritis, Asthma, Bipolar Disorder, Bronchitis, CAD, COPD , Depression, Diabetes, Gastritis, GERD, HTN, Hypercholesterolemia, Hypothyroidism, Osteoporosis, Peripheral Edema, Pneumonia, Pulmonary Embolism Denies: Hepatitis, HIV, Chronic Kidney Disease, Seizures, Sexually Transmitted Disease Surgical History: CABG, Cholecystectomy, Coronary Stent - [facility] Procedures ALCOHOL DETOXIFICATION (03/15/15) EXCISION OF STOMACH, ENDO, DIAGN (05/29/18) FLUOROSCOPY OF MULT COR ART USING L OSM CONTRAST (03/10/18) GROUP PSYCHOTHERAPY (02/03/18) INDIV PSYCHOTHERAPY FOR SUBSTANCE ABUSE, COGNITIV BEHAVIORAL (02/03/18) INDIVID PSYCHOTHERAP NEC (04/14/13) INDIVIDUAL PSYCHOTHERAPY, COGNITIVE-BEHAVIORAL (02/03/18) INTRODUCTION OF ANTI-INFLAM INTO RESP TRACT, VIA OPENING (01/25/17) INTRODUCTION OF SERUM/TOX/VACCINE INTO MUSCLE, PERC APPROACH (09/02/17) MEASURE OF CARDIAC SAMPL & PRESSURE, L HEART, PERC APPROACH (03/10/18) OTHER GROUP THERAPY (04/14/13) PHYSICAL THERAPY NEC (06/12/14) Family History: States: No Known Family Hx - Social History Hx Tobacco Use: Yes Hx Alcohol Use: Yes Hx Substance Use: No - Immunization History Hx Tetanus Toxoid Vaccination: No Hx Influenza Vaccination: No Hx Pneumococcal Vaccination: No Review Of Systems Except As Marked, All Systems Reviewed And Found Negative. Constitutional: Negative for: Fever Cardiovascular: Positive for: Chest Pain Respiratory: Positive for: Cough (nonproductive), Shortness of Breath Musculoskeletal: Positive for: Back Pain Physical Exam - Physical Exam Additional Physical Exam Comments: Constitutional: No acute distress. Head: Normocephalic. Atraumatic. Eyes: PERRL. ENT: Moist mucous membranes. Neck: Supple. Cardiovascular: Regular rate. Radial pulse 2+ bilaterally. Chest: No tenderness. Respiratory: Diffused expiratory wheezing. GI: Soft. Nontender. Nondistended. Back: No CVA tenderness. Musculoskeletal: No tenderness or swelling of extremities. Skin: No rash. Neurologic: Alert, no focal deficit. ED Course And Treatment - Laboratory Results Result Diagrams: 06/10/18 10:43 06/10/18 10:43 ECG: Interpreted By Me, Viewed By Me ECG Rhythm: L BBB Interpretation Of ECG: Normal sinus rhythm. No concordant ST elevations. Rate From EC O2 Sat by Pulse Oximetry: 97 (RA) Pulse Ox Interpretation: Normal - Other Rad Chest X-Ray X-Ray: Read By Radiologist Interpretation: FINDINGS: LUNGS: No active pulmonary disease. PLEURA: No significant pleural effusion identified, no pneumothorax apparent. CARDIOVASCULAR: Atherosclerotic aortic calcifications. Cardiomediastinal silhouette stably enlarged. OSSEOUS STRUCTURES: Unchanged. VISUALIZED UPPER ABDOMEN: Normal. OTHER FINDINGS: None. IMPRESSION: No active disease. Medical Decision Making Medical Decision Making: Impression: SOB Plan: -EKG -Labs -Chest X-Ray -Duoneb Disposition Discussed With : Anthony Can Doctor Will See Patient In The: Hospital - Disposition Disposition: HOSPITALIZED Disposition Time: 11:35 Condition: FAIR - Clinical Impression Clinical Impression: Asthma exacerbation - Scribe Statement The provider has reviewed the documentation as recorded by the Alexanderibe Martha Jerez Provider Attestation: All medical record entries made by the Alexanderibmegan were at my direction and personally dictated by me. I have reviewed the chart and agree that the record accurately reflects my personal performance of the history, physical exam, medical decision making, and the department course for this patient. I have also personally directed, reviewed, and agree with the discharge instructions and disposition.
[2018-06-10 11:05] LABS: ALBUMIN 2.8 g/dL (3.5-5.0); ALT/SGPT 97 U/L (9-52); AST/SGOT 62 U/L (14-36); BLOOD UREA NITROGEN 8 mg/dL (7-17); CALCIUM 8.3 mg/dl (8.6-10.4); GFR NON-AFRICAN AMERICAN > 60
--- NOTE | 2018-06-10 12:12 | RAD ---
Date of service: 06/10/2018 HISTORY: dyspnea COMPARISON: Chest radiograph dated 06/03/2018 FINDINGS: LUNGS: No active pulmonary disease. PLEURA: No significant pleural effusion identified, no pneumothorax apparent. CARDIOVASCULAR: Atherosclerotic aortic calcifications. Cardiomediastinal silhouette stably enlarged. OSSEOUS STRUCTURES: Unchanged. VISUALIZED UPPER ABDOMEN: Normal. OTHER FINDINGS: None. IMPRESSION: No active disease.
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
[2018-06-10] MEDS: Azithromycin 500mg/250ML NS 500 MG/250 ML BAG IVPB SCH (14:41)
[2018-06-10] MEDS: Albuterol-Ipratrop 3 mg / 0.5 (3 ml) UD INH SCH (20:28)
--- NOTE | 2018-06-10 20:51 | CP.PCM.CON ---
History of Present Illness - History of Present Illness History of Present Illness: 67 F with hx of asthma admitted for dyspnea and cough Recent Cath: Normal coronarie and normal EF Lost likely asthma exacerbation Medical management Past Patient History - Infectious Disease Hx of Infectious Diseases: None - Past Medical History & Family History Past Medical History?: Yes - Past Social History Smoking Status: Light Smoker < 10 Cigarettes Daily - CARDIAC Hx Hypercholesterolemia: Yes Hx Hypertension: Yes Hx Peripheral Edema: Yes - PULMONARY Hx Asthma: Yes Hx Bronchitis: Yes Hx Chronic Obstructive Pulmonary Disease (COPD): Yes Hx Pneumonia: Yes Hx Pulmonary Embolism: Yes - NEUROLOGICAL Hx Seizures: No - HEENT Hx HEENT Problems: No - RENAL Hx Chronic Kidney Disease: No - ENDOCRINE/METABOLIC Hx Hypothyroidism: Yes - HEMATOLOGICAL/ONCOLOGICAL Hx Anemia: Yes Hx Human Immunodeficiency Virus (HIV): No - INTEGUMENTARY Hx Dermatological Problems: No - MUSCULOSKELETAL/RHEUMATOLOGICAL Hx Arthritis: Yes Hx Osteoporosis: Yes - GASTROINTESTINAL Hx Gastritis: Yes - GENITOURINARY/GYNECOLOGICAL Hx Sexually Transmitted Disorders: No - PSYCHIATRIC Hx Anxiety: Yes Hx Bipolar Disorder: Yes Hx Depression: Yes Hx Substance Use: No - SURGICAL HISTORY Hx Cholecystectomy: Yes Hx Coronary Artery Bypass Graft: Yes Hx Coronary Stent: Yes - ANESTHESIA Hx Anesthesia: Yes Hx Anesthesia Reactions: No Hx Malignant Hyperthermia: No Meds Allergies/Adverse Reactions: Allergies Allergy/AdvReac Type Severity Reaction Status Date / Time ceftriaxone Allergy Intermediate RASH Verified 05/27/18 19:27 moxifloxacin HCl Allergy Intermediate RASH Verified 05/27/18 19:27 [From Avelox] - Medications Medications: Current Medications Albuterol/Ipratropium (Duoneb 3 Mg/0.5 Mg (3 Ml) Ud) 3 ml INH RQ6 [facility]ES[facility] Last Admin: 06/10/18 20:28 Dose: 3 ml Enalapril Maleate (Vasotec) 2.5 mg PO DAILY [facility] Enoxaparin Sodium (Lovenox) 40 mg SC DAILY [facility] Ceftriaxone Sodium 1 gm/ (Dextrose) 100 mls @ 50 mls/30 min IVPB DAILY [facility] PRN Reason: Protocol Azithromycin (Zithromax 500mg In Ns Addvantage) 500 mg in 250 mls @ 167 mls/hr IVPB Q24H [facility] PRN Reason: Protocol Last Admin: 06/10/18 14:41 Dose: 167 mls/hr Metformin HCl (Glucophage) 500 mg PO BID [facility] Last Admin: 06/10/18 18:47 Dose: 500 mg Methylprednisolone (Solu-Medrol) 40 mg IVP Q8 [facility] Montelukast Sodium (Singulair) 10 mg PO HS [facility] Pantoprazole Sodium (Protonix Ec Tab) 40 mg PO DAILY [facility] Pyridoxine HCl (Vitamin B6) 100 mg PO DAILY [facility] Trazodone HCl (Desyrel) 50 mg PO HS [facility] Results - Vital Signs Recent Vital Signs: Last Vital Signs Temp 97.4 F L 06/10/18 15:44 Pulse 85 06/10/18 20:30 Resp 20 06/10/18 19:37 BP 119/57 L 06/10/18 19:37 Pulse Ox 98 06/10/18 19:37 - Labs Result Diagrams: 06/10/18 10:43 06/10/18 10:43 Labs: Laboratory Results - last 24 hr 06/10/18 06/10/18 06/10/18 10:43 10:43 18:29 WBC 8.4 RBC 2.91 L Hgb 9.4 L Hct 28.6 L MCV 98.3 D MCH 32.3 H MCHC 32.9 L RDW 21.5 H Plt Count 88 L MPV 9.1 Neut % (Auto) 72.4 Lymph % (Auto) 16.8 L [place] % (Auto) 10.0 Eos % (Auto) 0.5 Baso % (Auto) 0.3 Neut # (Auto) 6.1 Lymph # (Auto) 1.4 [place] # (Auto) 0.8 Eos # (Auto) 0.0 Baso # (Auto) 0.0 Sodium 139 Potassium 3.7 Chloride 104 Carbon Dioxide 28 Anion Gap 10 BUN 8 Creatinine 0.5 L Est GFR ( Amer) > 60 Est GFR (Non-Af Amer) > 60 POC Glucose (mg/dL) 131 H Random Glucose 159 H Calcium 8.3 L Total Bilirubin 0.7 AST 62 H ALT 97 H Alkaline Phosphatase 102 Troponin I < 0.0120 Total Protein 5.7 L Albumin 2.8 L Globulin 2.9 Albumin/Globulin Ratio 1.0
[2018-06-10] MEDS: MethylPREDNISolone 40 mg Vial IVP SCH (22:05)
[2018-06-11] MEDS: Albuterol-Ipratrop 3 mg / 0.5 (3 ml) UD INH SCH ×2 (01:27→07:00)
[2018-06-11] MEDS: MethylPREDNISolone 40 mg Vial IVP SCH ×3 (06:30→22:51)
[2018-06-11] MEDS ORDERED: Pantoprazole 40 mg EC Tab PO SCH (10:00)
[2018-06-11] MEDS ORDERED: cefTRIAXone IV 1 gm in Dextros 1 GM in Dextrose 5% In Water 50 ML IVPB SCH (10:00)
[2018-06-11] MEDS: Enoxaparin 40 mg Syringe SC SCH (10:46)
[2018-06-11] MEDS: Pyridoxine 100 mg Tab PO SCH (10:46)
[2018-06-11] MEDS: Azithromycin 500mg/250ML NS 500 MG/250 ML BAG IVPB SCH (14:03)
--- NOTE | 2018-06-11 15:13 | CP.PCM.CON ---
History of Present Illness - History of Present Illness History of Present Illness: Reason for consultation: shortness of breath 67-year-old female with history of COPD, DVT/pulmonary embolism, cirrhosis of liver secondary to alcohol abuse, bipolar disorder, hypothyroidism presented to emergency room complaining of shortness of breath and slight cough. Also complaining of wheezing. Denies fever chills, denies chest pain Family History- sister- liver cancer- at 70 years of age; mother- uterine cancer , father-unknown cancer Social History- ; 3-4 beers daily for many years, denies illicit drug use, history off smoking Surgical History- cholecystectomy, IVC filter Review of Systems - Review of Systems All systems: reviewed and no additional remarkable complaints except (shortness of breath and wheezing) Past Patient History - Infectious Disease Hx of Infectious Diseases: None - Past Medical History & Family History Past Medical History?: Yes - Past Social History Smoking Status: Light Smoker < 10 Cigarettes Daily - CARDIAC Hx Hypercholesterolemia: Yes Hx Hypertension: Yes Hx Peripheral Edema: Yes - PULMONARY Hx Asthma: Yes Hx Bronchitis: Yes Hx Chronic Obstructive Pulmonary Disease (COPD): Yes Hx Pneumonia: Yes Hx Pulmonary Embolism: Yes - NEUROLOGICAL Hx Seizures: No - HEENT Hx HEENT Problems: No - RENAL Hx Chronic Kidney Disease: No - ENDOCRINE/METABOLIC Hx Hypothyroidism: Yes - HEMATOLOGICAL/ONCOLOGICAL Hx Anemia: Yes Hx Human Immunodeficiency Virus (HIV): No - INTEGUMENTARY Hx Dermatological Problems: No - MUSCULOSKELETAL/RHEUMATOLOGICAL Hx Arthritis: Yes Hx Osteoporosis: Yes - GASTROINTESTINAL Hx Gastritis: Yes - GENITOURINARY/GYNECOLOGICAL Hx Sexually Transmitted Disorders: No - PSYCHIATRIC Hx Anxiety: Yes Hx Bipolar Disorder: Yes Hx Depression: Yes Hx Substance Use: No - SURGICAL HISTORY Hx Cholecystectomy: Yes Hx Coronary Artery Bypass Graft: Yes Hx Coronary Stent: Yes - ANESTHESIA Hx Anesthesia: Yes Hx Anesthesia Reactions: No Hx Malignant Hyperthermia: No Meds Allergies/Adverse Reactions: Allergies Allergy/AdvReac Type Severity Reaction Status Date / Time ceftriaxone Allergy Intermediate RASH Verified 05/27/18 19:27 moxifloxacin HCl Allergy Intermediate RASH Verified 05/27/18 19:27 [From Avelox] - Medications Medications: Current Medications Albuterol/Ipratropium (Duoneb 3 Mg/0.5 Mg (3 Ml) Ud) 3 ml INH RQ6 [facility]ESSE Last Admin: 06/11/18 07:00 Dose: 3 ml Enalapril Maleate (Vasotec) 2.5 mg PO DAILY [facility] Last Admin: 06/11/18 10:46 Dose: 2.5 mg Enoxaparin Sodium (Lovenox) 40 mg SC DAILY [facility] Last Admin: 06/11/18 10:46 Dose: 40 mg Azithromycin (Zithromax 500mg In Ns Addvantage) 500 mg in 250 mls @ 167 mls/hr IVPB Q24H [facility] PRN Reason: Protocol Last Admin: 06/11/18 14:03 Dose: 167 mls/hr Ceftriaxone Sodium 1 gm/ (Sodium Chloride) 50 mls @ 50 mls/30 min IVPB DAILY [facility] PRN Reason: Protocol Last Admin: 06/11/18 10:45 Dose: 50 mls/30 min Metformin HCl (Glucophage) 500 mg PO BID [facility] Last Admin: 06/11/18 10:46 Dose: 500 mg Methylprednisolone (Solu-Medrol) 40 mg IVP Q8 [facility] Last Admin: 06/11/18 14:01 Dose: 40 mg Montelukast Sodium (Singulair) 10 mg PO [facility] Last Admin: 06/10/18 22:05 Dose: 10 mg Pantoprazole Sodium (Protonix Ec Tab) 40 mg PO DAILY [facility] Last Admin: 06/11/18 10:46 Dose: 40 mg Pyridoxine HCl (Vitamin B6) 100 mg PO DAILY [facility] Last Admin: 06/11/18 10:46 Dose: 100 mg Trazodone HCl (Desyrel) 50 mg PO HS [facility] Last Admin: 06/10/18 22:04 Dose: 50 mg Physical Exam - Head Exam Head Exam: ATRAUMATIC, NORMOCEPHALIC - ENT Exam ENT Exam: Mucous Membranes Moist - Neck Exam Neck exam: Positive for: Normal Inspection - Respiratory Exam Respiratory Exam: Rhonchi, Wheezes - Cardiovascular Exam Cardiovascular Exam: REGULAR RHYTHM - GI/Abdominal Exam GI & Abdominal Exam: Normal Bowel Sounds, Soft - Extremities Exam Extremities exam: Positive for: normal inspection - Neurological Exam Neurological exam: Alert, Oriented x3 Results - Vital Signs Recent Vital Signs: Last Vital Signs Temp 97.7 F 06/11/18 08:00 Pulse 78 06/11/18 08:26 Resp 18 06/11/18 08:00 BP 125/63 06/11/18 10:46 Pulse Ox 96 06/11/18 11:52 - Labs Result Diagrams: 06/10/18 10:43 06/10/18 10:43 Labs: Laboratory Results - last 24 hr 06/10/18 06/11/18 18:29 07:39 POC Glucose (mg/dL) 131 H 214 H Assessment & Plan (1) COPD exacerbation Status: Acute Comment: continue nebulizer treatment. IV steroids. IV antibiotics
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
[2018-06-11 15:55] VITALS: RESP 20
--- NOTE | 2018-06-11 17:00 | CP.PCM.PN ---
<Guerline Loco E - Last Filed: 06/11/18 16:52> Subjective - Date & Time of Evaluation Date of Evaluation: 06/11/18 Time of Evaluation: 10:00 - Subjective Subjective: Cardiology progress note ( Dr. Del Rosario's service) Patient was seen and examined at bedside. Patient admits to SOB, cough and wheezing but denies chest pain, palpitations and dizziness. Objective - Vital Signs/Intake and Output Vital Signs (last 24 hours): Temp Pulse Resp BP Pulse Ox 98.2 F 89 20 124/70 97 06/11/18 15:00 06/11/18 16:00 06/11/18 15:00 06/11/18 15:00 06/11/18 16:00 Intake and Output: 06/11/18 06/11/18 06:59 18:59 Intake Total 560 250 Output Total 1050 Balance -490 250 - Medications Medications: Current Medications Albuterol/Ipratropium (Duoneb 3 Mg/0.5 Mg (3 Ml) Ud) 3 ml INH RQ6 [facility] Last Admin: 06/11/18 07:00 Dose: 3 ml Enalapril Maleate (Vasotec) 2.5 mg PO DAILY [facility] Last Admin: 06/11/18 10:46 Dose: 2.5 mg Enoxaparin Sodium (Lovenox) 40 mg SC DAILY [facility] Last Admin: 06/11/18 10:46 Dose: 40 mg Azithromycin (Zithromax 500mg In Ns Addvantage) 500 mg in 250 mls @ 167 mls/hr IVPB Q24H [facility] PRN Reason: Protocol Last Admin: 06/11/18 14:03 Dose: 167 mls/hr Ceftriaxone Sodium 1 gm/ (Sodium Chloride) 50 mls @ 50 mls/30 min IVPB DAILY [facility] PRN Reason: Protocol Last Admin: 06/11/18 10:45 Dose: 50 mls/30 min Metformin HCl (Glucophage) 500 mg PO BID [facility] Last Admin: 06/11/18 10:46 Dose: 500 mg Methylprednisolone (Solu-Medrol) 40 mg IVP Q8 [facility] Last Admin: 06/11/18 14:01 Dose: 40 mg Montelukast Sodium (Singulair) 10 mg PO HS [facility] Last Admin: 06/10/18 22:05 Dose: 10 mg Pantoprazole Sodium (Protonix Ec Tab) 40 mg PO DAILY [facility] Last Admin: 06/11/18 10:46 Dose: 40 mg Pyridoxine HCl (Vitamin B6) 100 mg PO DAILY [facility] Last Admin: 06/11/18 10:46 Dose: 100 mg Trazodone HCl (Desyrel) 50 mg PO HS [facility] Last Admin: 06/10/18 22:04 Dose: 50 mg - Labs Labs: 06/10/18 10:43 06/10/18 10:43 - Constitutional Appears: Non-toxic - Head Exam Head Exam: ATRAUMATIC - Eye Exam Eye Exam: EOMI - ENT Exam ENT Exam: Mucous Membranes Moist - Respiratory Exam Respiratory Exam: Wheezes, NORMAL BREATHING PATTERN. absent: Clear to Ausculation Bilateral, Rhonchi Additional comments: Upper lobe expiratory wheezing - Cardiovascular Exam Cardiovascular Exam: REGULAR RHYTHM, +S1, +S2 - GI/Abdominal Exam GI & Abdominal Exam: Soft, Normal Bowel Sounds - Extremities Exam Extremities Exam: Normal Inspection. absent: Calf Tenderness, Pedal Edema - Neurological Exam Neurological Exam: Alert, Awake, Oriented x3 - Psychiatric Exam Psychiatric exam: Anxious Assessment and Plan (1) COPD exacerbation Assessment & Plan: with Asthma exacerbation Whirley Operator, Dr. Gupta on board * Management as per hard rock miner blasting * Albuterol 3ML INH RQ6H * Singulair 10mg PO HS * Zithromax 500mg IV 24 hours * Rocephin 1gm IV daily * Solumedrol 40mg IV Q8H Chest X-ray: No active disease. 03/14/18: Normal coronaries and EF No cardiac related at this point Continue medical management pulmonary medical issues All plans and management as discussed with Dr. Del Rosario Status: Acute <Alberto Del Rosario - Last Filed: 06/12/18 06:03> Objective - Vital Signs/Intake and Output Vital Signs (last 24 hours): Temp Pulse Resp BP Pulse Ox 98.2 F 91 H 20 120/65 97 06/11/18 23:45 06/12/18 04:27 06/11/18 23:45 06/11/18 23:45 06/11/18 23:45 Intake and Output: 06/11/18 06/12/18 18:59 06:59 Intake Total 250 300 Output Total 300 Balance 250 0 - Medications Medications: Current Medications Albuterol/Ipratropium (Duoneb 3 Mg/0.5 Mg (3 Ml) Ud) 3 ml INH RQ6 [facility] Last Admin: 06/12/18 01:07 Dose: 3 ml Enalapril Maleate (Vasotec) 2.5 mg PO DAILY [facility] Last Admin: 06/11/18 10:46 Dose: 2.5 mg Enoxaparin Sodium (Lovenox) 40 mg SC DAILY [facility] Last Admin: 06/11/18 10:46 Dose: 40 mg Azithromycin (Zithromax 500mg In Ns Addvantage) 500 mg in 250 mls @ 167 mls/hr IVPB Q24H [facility] PRN Reason: Protocol Last Admin: 06/11/18 14:03 Dose: 167 mls/hr Ceftriaxone Sodium 1 gm/ (Sodium Chloride) 50 mls @ 50 mls/30 min IVPB DAILY [facility] PRN Reason: Protocol Last Admin: 06/11/18 10:45 Dose: 50 mls/30 min Metformin HCl (Glucophage) 500 mg PO BID [facility] Last Admin: 06/11/18 17:01 Dose: 500 mg Methylprednisolone (Solu-Medrol) 40 mg IVP Q8 [facility] Last Admin: 06/12/18 05:40 Dose: 40 mg Montelukast Sodium (Singulair) 10 mg PO HS [facility] Last Admin: 06/11/18 22:52 Dose: 10 mg Pantoprazole Sodium (Protonix Ec Tab) 40 mg PO DAILY [facility] Last Admin: 06/11/18 10:46 Dose: 40 mg Pyridoxine HCl (Vitamin B6) 100 mg PO DAILY [facility] Last Admin: 06/11/18 10:46 Dose: 100 mg Trazodone HCl (Desyrel) 50 mg PO HS [facility] Last Admin: 06/11/18 22:52 Dose: 50 mg - Labs Labs: 06/10/18 10:43 06/10/18 10:43 Assessment and Plan - Assessment and Plan (Free Text) Assessment: Patient seen and evaluated personally by mn Plan of care d/w the medical intern and as documented
--- NOTE | 2018-06-11 19:03 | CARD ---
APPROVED REPORT Date of service: 06/10/2018 EKG Measurement Heart [id number] <Conclusion> Normal sinus rhythm Left bundle branch block Abnormal ECG
[2018-06-12] MEDS: Albuterol-Ipratrop 3 mg / 0.5 (3 ml) UD INH SCH ×4 (01:07→19:32)
[2018-06-12] MEDS: MethylPREDNISolone 40 mg Vial IVP SCH ×3 (05:40→22:17)
[2018-06-12] MEDS: Pyridoxine 100 mg Tab PO SCH (09:30)
[2018-06-12] MEDS: Enoxaparin 40 mg Syringe SC SCH (09:32)
[2018-06-12] MEDS: Pantoprazole 40 mg EC Tab PO SCH (09:35)
[2018-06-12] MEDS: (Novolog) Insulin Aspart, Recombinant 100 u/ml 10 ml vial SC SCH ×3 (12:19→22:24)
--- NOTE | 2018-06-12 14:46 | CP.PCM.PN ---
<ClaudyFarheenjelani E - Last Filed: 06/12/18 14:43> Subjective - Date & Time of Evaluation Date of Evaluation: 06/12/18 Time of Evaluation: 10:00 - Subjective Subjective: Cardiology progress note ( Dr. Del Rosario's service) Patient was seen and examined at bedside. Patient admits to improving symptoms but still with mild SOB, cough and wheezing but denies chest pain, palpitations and dizziness. Objective - Vital Signs/Intake and Output Vital Signs (last 24 hours): Temp Pulse Resp BP Pulse Ox 98.4 F 83 20 121/70 99 06/12/18 08:23 06/12/18 08:23 06/12/18 08:23 06/12/18 09:30 06/12/18 09:59 Intake and Output: 06/12/18 06/12/18 06:59 18:59 Intake Total 540 Output Total 300 Balance 240 - Medications Medications: Current Medications Albuterol/Ipratropium (Duoneb 3 Mg/0.5 Mg (3 Ml) Ud) 3 ml INH RQ6 [facility] Last Admin: 06/12/18 08:09 Dose: 3 ml Alprazolam (Xanax) 0.5 mg PO HS [facility] Enalapril Maleate (Vasotec) 2.5 mg PO DAILY [facility] Last Admin: 06/12/18 09:30 Dose: 2.5 mg Enoxaparin Sodium (Lovenox) 40 mg SC DAILY [facility] Last Admin: 06/12/18 09:32 Dose: 40 mg Escitalopram Oxalate (Lexapro) 5 mg PO DAILY [facility] Guaifenesin/Dextromethorphan (Robitussin Dm) 5 ml PO TID [facility] Azithromycin (Zithromax 500mg In Ns Addvantage) 500 mg in 250 mls @ 167 mls/hr IVPB Q24H [facility] PRN Reason: Protocol Last Admin: 06/11/18 14:03 Dose: 167 mls/hr Ceftriaxone Sodium 1 gm/ (Sodium Chloride) 50 mls @ 50 mls/30 min IVPB DAILY [facility] PRN Reason: Protocol Last Admin: 06/12/18 09:32 Dose: 50 mls/30 min Insulin Aspart (Novolog) 0 unit SC ACHS [facility] PRN Reason: Protocol Last Admin: 06/12/18 12:19 Dose: 12 u Metformin HCl (Glucophage) 500 mg PO BID [facility] Last Admin: 06/12/18 09:30 Dose: 500 mg Methylprednisolone (Solu-Medrol) 40 mg IVP Q8 [facility] Last Admin: 06/12/18 05:40 Dose: 40 mg Montelukast Sodium (Singulair) 10 mg PO HS [facility] Last Admin: 06/11/18 22:52 Dose: 10 mg Pantoprazole Sodium (Protonix Ec Tab) 40 mg PO DAILY [facility] Last Admin: 06/12/18 09:35 Dose: 40 mg Pyridoxine HCl (Vitamin B6) 100 mg PO DAILY [facility] Last Admin: 06/12/18 09:30 Dose: 100 mg Trazodone HCl (Desyrel) [address] [facility] - Labs Labs: 06/10/18 10:43 06/10/18 10:43 - Constitutional Appears: No Acute Distress - Eye Exam Eye Exam: EOMI - ENT Exam ENT Exam: Mucous Membranes Moist - Respiratory Exam Respiratory Exam: Decreased Breath Sounds, Rhonchi, NORMAL BREATHING PATTERN Additional comments: Diffuse bilateral expiratory wheezing - Cardiovascular Exam Cardiovascular Exam: REGULAR RHYTHM, +S1, +S2 - GI/Abdominal Exam GI & Abdominal Exam: Soft, Normal Bowel Sounds. absent: Distended, Firm, Guarding, Rigid, Tenderness - Extremities Exam Extremities Exam: Normal Inspection. absent: Calf Tenderness, Pedal Edema - Neurological Exam Neurological Exam: Alert, Awake, Oriented x3 - Psychiatric Exam Psychiatric exam: Normal Affect - Skin Skin Exam: Normal Color Assessment and Plan (1) COPD exacerbation Assessment & Plan: with Asthma exacerbation Handling TechDr. Gupta on board * Management as per portrait photographer * Albuterol 3ML INH RQ6H * Singulair 10mg PO HS * Zithromax 500mg IV 24 hours * Rocephin 1gm IV daily * Solumedrol 40mg IV Q8H Chest X-ray: No active disease. 03/14/18: Normal coronaries and EF Troponin negative X1 Symptoms not cardiac related Continue medical management as per pulmonology No cardiac intervention at this time All plans and management discussed with Dr. Del Rosario Status: Acute <Alberto Del Rosario - Last Filed: 06/12/18 23:21> Objective - Vital Signs/Intake and Output Vital Signs (last 24 hours): Temp Pulse Resp BP Pulse Ox 98.2 F 81 20 122/71 98 06/12/18 15:29 06/12/18 15:29 06/12/18 15:29 06/12/18 15:29 06/12/18 15:29 - Medications Medications: Current Medications Albuterol/Ipratropium (Duoneb 3 Mg/0.5 Mg (3 Ml) Ud) 3 ml INH RQ6 [facility] Last Admin: 06/12/18 19:32 Dose: 3 ml Alprazolam (Xanax) 0.5 mg PO HS [facility] Last Admin: 06/12/18 22:17 Dose: 0.5 mg Enalapril Maleate (Vasotec) 2.5 mg PO DAILY [facility] Last Admin: 06/12/18 09:30 Dose: 2.5 mg Enoxaparin Sodium (Lovenox) 40 mg SC DAILY [facility] Last Admin: 06/12/18 09:32 Dose: 40 mg Escitalopram Oxalate (Lexapro) 5 mg PO DAILY [facility] Last Admin: 06/12/18 14:45 Dose: 5 mg Guaifenesin/Dextromethorphan (Robitussin Dm) 5 ml PO TID [facility] Last Admin: 06/12/18 22:46 Dose: 5 ml Azithromycin (Zithromax 500mg In Ns Addvantage) 500 mg in 250 mls @ 167 mls/hr IVPB Q24H [facility] PRN Reason: Protocol Last Admin: 06/12/18 14:47 Dose: 167 mls/hr Ceftriaxone Sodium 1 gm/ (Sodium Chloride) 50 mls @ 50 mls/30 min IVPB DAILY [facility] PRN Reason: Protocol Last Admin: 06/12/18 09:32 Dose: 50 mls/30 min Insulin Aspart (Novolog) 0 unit SC ACHS [facility] PRN Reason: Protocol Last Admin: 06/12/18 22:24 Dose: 3 u Metformin HCl (Glucophage) 500 mg PO BID [facility] Last Admin: 06/12/18 18:04 Dose: 500 mg Methylprednisolone (Solu-Medrol) 40 mg IVP Q8 [facility] Last Admin: 06/12/18 22:17 Dose: 40 mg Montelukast Sodium (Singulair) 10 mg PO HS [facility] Last Admin: 06/12/18 22:17 Dose: 10 mg Pantoprazole Sodium (Protonix Ec Tab) 40 mg PO DAILY [facility] Last Admin: 06/12/18 09:35 Dose: 40 mg Pyridoxine HCl (Vitamin B6) 100 mg PO DAILY [facility] Last Admin: 06/12/18 09:30 Dose: 100 mg Trazodone HCl (Desyrel) [address] [facility] Last Admin: 06/12/18 22:16 Dose: 100 mg - Labs Labs: 06/10/18 10:43 06/10/18 10:43 Assessment and Plan - Assessment and Plan (Free Text) Assessment: Patient seen and evaluated personally by me Plan of care d/w the medical oncologist and as documented
[2018-06-12] MEDS: Azithromycin 500mg/250ML NS 500 MG/250 ML BAG IVPB SCH (14:47)
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
--- NOTE | 2018-06-12 17:38 | CP.PCM.PN ---
Subjective - Date & Time of Evaluation Date of Evaluation: 06/12/18 Time of Evaluation: 16:00 - Subjective Subjective: patient seen and examined Cough and shortness of breath improving Afebrile No chest pain Continue nebulizer treatment switch to Prednisone Objective - Vital Signs/Intake and Output Vital Signs (last 24 hours): Temp Pulse Resp BP Pulse Ox 98.2 F 81 20 122/71 98 06/12/18 15:29 06/12/18 15:29 06/12/18 15:29 06/12/18 15:29 06/12/18 15:29 Intake and Output: 06/12/18 06/12/18 06:59 18:59 Intake Total 540 Output Total 300 Balance 240 - Medications Medications: Current Medications Albuterol/Ipratropium (Duoneb 3 Mg/0.5 Mg (3 Ml) Ud) 3 ml INH RQ6 [facility] Last Admin: 06/12/18 08:09 Dose: 3 ml Alprazolam (Xanax) 0.5 mg PO HS [facility] Enalapril Maleate (Vasotec) 2.5 mg PO DAILY [facility] Last Admin: 06/12/18 09:30 Dose: 2.5 mg Enoxaparin Sodium (Lovenox) 40 mg SC DAILY [facility] Last Admin: 06/12/18 09:32 Dose: 40 mg Escitalopram Oxalate (Lexapro) 5 mg PO DAILY [facility] Last Admin: 06/12/18 14:45 Dose: 5 mg Guaifenesin/Dextromethorphan (Robitussin Dm) 5 ml PO TID [facility] Azithromycin (Zithromax 500mg In Ns Addvantage) 500 mg in 250 mls @ 167 mls/hr IVPB Q24H [facility] PRN Reason: Protocol Last Admin: 06/12/18 14:47 Dose: 167 mls/hr Ceftriaxone Sodium 1 gm/ (Sodium Chloride) 50 mls @ 50 mls/30 min IVPB DAILY [facility] PRN Reason: Protocol Last Admin: 06/12/18 09:32 Dose: 50 mls/30 min Insulin Aspart (Novolog) 0 unit SC ACHS [facility] PRN Reason: Protocol Last Admin: 06/12/18 12:19 Dose: 12 u Metformin HCl (Glucophage) 500 mg PO BID [facility] Last Admin: 06/12/18 09:30 Dose: 500 mg Methylprednisolone (Solu-Medrol) 40 mg IVP Q8 [facility] Last Admin: 06/12/18 14:46 Dose: 40 mg Montelukast Sodium (Singulair) 10 mg PO HS [facility] Last Admin: 06/11/18 22:52 Dose: 10 mg Pantoprazole Sodium (Protonix Ec Tab) 40 mg PO DAILY [facility] Last Admin: 06/12/18 09:35 Dose: 40 mg Pyridoxine HCl (Vitamin B6) 100 mg PO DAILY [facility] Last Admin: 06/12/18 09:30 Dose: 100 mg Trazodone HCl (Desyrel) 100 mg PO [facility] - Labs Labs: 06/10/18 10:43 06/10/18 10:43 Assessment and Plan (1) COPD exacerbation Status: Acute
--- NOTE | 2018-06-12 22:15 | PCM.PSYCH ---
Initial Psychiatric Evaluation - Initial Psychiatric Evaluation Type of Admission: Voluntary Legal Status: Capacity Chief Complaint (in patient's own words): "I'm anxious" History of Present Illness and Precipitating Events: Pt is a 67y/o HF who is single, retired from work, and currently living with her daughter. pt has 6 children, 2 have . pt is admitted due to exacerbation of asthma and shortness of breath. while admitted, pt states that she has decreased mood, anxiety, and low interest in activities for the past month. pt has been diagnosed with depression and anxiety since 20 y/o. pt prescribed Buspar, Xanax, and seroquel. pt states she stopped seeing her psychiatrist 3 months ago and has ran out of her medication. Last dosage of medication was 2 months ago. pt denies any SI/HI currently or hx of psychiatric hospitalizations. Pt denies racing thoughts, paranoia, manic episodes. Pt denies auditory, visual or tactile hallucinations. Pt smokes 6 cigarettes per day. denies hx of cocaine, heroin, marijuana, or any other substance use Psych Hx: Bipolar Disorder?, Depression, Anxiety Traumatic Hx: denies Family psych Hx: denies Medical Hx: Arthritis, Asthma, COPD, DM2, Gastritis, GERD, Hypertension, and Hypercholesterolemia Legal Hx: denies Current Medications: Active Medications Generic Name Dose Route Start Last Admin Trade Name Freq PRN Reason Stop Dose Admin Albuterol/Ipratropium 3 ml 06/10/18 20:00 06/12/18 19:32 Duoneb 3 Mg/0.5 Mg (3 Ml) Ud INH 3 ml RQ6 [facility] Administration Alprazolam 0.5 mg 06/12/18 22:00 Xanax PO HS [facility] Enalapril Maleate 2.5 mg 06/11/18 10:00 06/12/18 09:30 Vasotec PO 2.5 mg DAILY [facility] Administration Enoxaparin Sodium 40 mg 06/11/18 10:00 06/12/18 09:32 Lovenox SC 40 mg DAILY [facility] Administration Escitalopram Oxalate 5 mg 06/12/18 13:00 06/12/18 14:45 Lexapro PO 5 mg DAILY [facility] Administration Guaifenesin/Dextromethorphan 5 ml 06/12/18 14:00 Robitussin Dm PO TID [facility] Azithromycin 500 mg in 250 mls @ 167 mls/hr 06/10/18 15:00 06/12/18 14:47 Zithromax 500mg In Ns Addvantage IVPB 167 mls/hr Q24H [facility] Administration Protocol Ceftriaxone Sodium 1 gm/ 50 mls @ 50 mls/30 min 06/11/18 10:00 06/12/18 09:32 Sodium Chloride IVPB 50 mls/30 min DAILY [facility] Administration Protocol Insulin Aspart 0 unit 06/12/18 11:30 06/12/18 18:04 Novolog SC 2 u ACHS [facility]SE Administration Protocol Metformin HCl 500 mg 06/10/18 18:00 06/12/18 18:04 Glucophage PO 500 mg BID [facility] Administration Methylprednisolone 40 mg 06/10/18 22:00 06/12/18 14:46 Solu-Medrol IVP 40 mg Q8 [facility] Administration Montelukast Sodium 10 mg 06/10/18 22:00 06/11/18 22:52 Singulair PO 10 mg HS [facility] Administration Pantoprazole Sodium 40 mg 06/12/18 10:00 06/12/18 09:35 Protonix Ec Tab PO 40 mg DAILY [facility] Administration Pyridoxine HCl 100 mg 06/11/18 10:00 06/12/18 09:30 Vitamin B6 PO 100 mg DAILY [facility] Administration Trazodone HCl 100 mg 06/12/18 22:00 Desyrel PO HS [facility] Past Psychiatric History - Past Psychiatric History Previous Treatment History: Intensive Outpatient Pertinent Medical Hx (Current Medical&Sleep Prob, Allergies): Allergies Allergy/AdvReac Type Severity Reaction Status Date / Time ceftriaxone Allergy Intermediate RASH Verified 05/27/18 19:27 moxifloxacin HCl Allergy Intermediate RASH Verified 05/27/18 19:27 [From Avelox] metFORMIN [glucOPHAGE] 500 mg PO BID #60 tab 02/08/18 Enalapril Maleate [Vasotec] 2.5 mg PO DAILY #30 tab 03/17/18 Spironolactone [Aldactone] 12.5 mg PO BID #30 tab 03/17/18 Thiamine [Vitamin B1 Tab] 100 mg PO DAILY #30 tab 03/17/18 Pantoprazole Sodium [Protonix] 40 mg PO DAILY #15 ect 05/09/18 Albuterol Sulfate [Proair Hfa] 2 puff IH Q6 PRN 05/12/18 Losartan [Cozaar] 25 mg PO DAILY 05/12/18 Sertraline [Zoloft] 50 mg PO DAILY 05/12/18 Alprazolam [Xanax] 0.5 mg PO BID #10 tablet 05/14/18 Azithromycin 500 mg PO DAILY 4 Days tablet 06/05/18 Lactobacillus Acidophilus [Bacid Acidophilus] 1 cap PO DAILY 4 Days cap Methylprednisolone [Medrol Dose Pack (21 tabs)] 4 mg PO DAILY #21 mg 06/05/18 Montelukast [Singulair] 10 mg PO HS 30 Days tab 06/05/18 traZODone [Desyrel] 50 mg PO HS 30 Days tab 06/05/18 Pyridoxine [Vitamin B6] 100 mg PO DAILY 06/10/18 Review of Systems - Psychiatric Psychiatric: Abnormal Sleep Pattern, Anhedonia, Anxiety, Depression, Difficulty Concentrating. absent: Hallucinations, Homicidal Ideation, Paranoia, Suicidal Ideation Mental Status Examination - Personal Presentation Personal Presentation: Looks stated age - Affect Affect: Constricted - Motor Activity Motor Activity: Calm - Reliability in Providing Information Reliability in Providing Information: Good - Speech Speech: Organized - Mood Mood: Depressed, Anxious - Formal Thought Process Formal Thought Process: No Impairment - Cognitive Functions Orientation: Person, Place, Situation, Time Sensorium: Alert Attention/Concentration: Easily distracted Estimate of Intelligence: Average Judgement: Intact, as evidence by: Insight regarding need for hospitalization Memory: Recent intact, as evidence by: Ability to recall events of the day, Remote intact, as evidenced by: Abilit to recall sig. life events - Risk Risk: Diminished functioning - Strength & Assets Inventory Strength & Assets Inventory: Family support, Cooperative DSM 5 DX - DSM 5 DSM 5 Diagnosis: Major Depressive Disorder, single, moderate Generalized Anxiety Disorder - Recommended/Plan of Treatment Treatment Recommendations and Plan of Treatment: Lexapro for Major Depressive Disorder As need medications All risks, benefits and alternatives of the meds discussed, and the pt agreed and understood. Attend groups and activities Individual therapy daily Psychoeducation and support daily Encourage compliance with meds and after care Refer to outpatient program Teach healthy lifestyle methods, i.e. diet, exercise, meditation 33 min
[2018-06-12] MEDS: guaiFENesin DM 100 mg-10 mg/5 ml UD PO SCH (22:46)
[2018-06-13] MEDS: Albuterol-Ipratrop 3 mg / 0.5 (3 ml) UD INH SCH ×4 (01:35→19:24)
[2018-06-13] MEDS: MethylPREDNISolone 40 mg Vial IVP SCH ×3 (05:54→23:32)
[2018-06-13] MEDS: (Novolog) Insulin Aspart, Recombinant 100 u/ml 10 ml vial SC SCH ×4 (08:33→21:35)
[2018-06-13] MEDS: guaiFENesin DM 100 mg-10 mg/5 ml UD PO SCH ×2 (09:56→17:42)
[2018-06-13] MEDS: Enoxaparin 40 mg Syringe SC SCH (09:56)
[2018-06-13] MEDS: Pantoprazole 40 mg EC Tab PO SCH (09:57)
--- NOTE | 2018-06-13 14:50 | CP.PCM.PN ---
Subjective - Date & Time of Evaluation Date of Evaluation: 06/13/18 Time of Evaluation: 10:00 - Subjective Subjective: Patient seen and examined Still complaining of shortness of breath Afebrile Patient is awake and responsive Objective - Vital Signs/Intake and Output Vital Signs (last 24 hours): Temp Pulse Resp BP Pulse Ox 98.1 F 79 20 107/66 95 06/13/18 08:16 06/13/18 08:16 06/13/18 08:16 06/13/18 09:55 06/13/18 08:16 Intake and Output: 06/13/18 06/13/18 06:59 18:59 Intake Total 120 Balance 120 - Medications Medications: Current Medications Albuterol/Ipratropium (Duoneb 3 Mg/0.5 Mg (3 Ml) Ud) 3 ml INH RQ6 [facility] Last Admin: 06/13/18 13:39 Dose: 3 ml Alprazolam (Xanax) 0.5 mg PO HS [facility] Last Admin: 06/12/18 22:17 Dose: 0.5 mg Enalapril Maleate (Vasotec) 2.5 mg PO DAILY [facility] Last Admin: 06/13/18 09:55 Dose: 2.5 mg Enoxaparin Sodium (Lovenox) 40 mg SC DAILY [facility] Last Admin: 06/13/18 09:56 Dose: 40 mg Escitalopram Oxalate (Lexapro) 5 mg PO DAILY [facility] Last Admin: 06/13/18 09:56 Dose: 5 mg Guaifenesin/Dextromethorphan (Robitussin Dm) 5 ml PO TID [facility] Last Admin: 06/13/18 09:56 Dose: 5 ml Azithromycin (Zithromax 500mg In Ns Addvantage) 500 mg in 250 mls @ 167 mls/hr IVPB Q24H [facility] PRN Reason: Protocol Last Admin: 06/12/18 14:47 Dose: 167 mls/hr Ceftriaxone Sodium 1 gm/ (Sodium Chloride) 50 mls @ 50 mls/30 min IVPB DAILY [facility] PRN Reason: Protocol Last Admin: 06/13/18 13:34 Dose: 50 mls/30 min Insulin Aspart (Novolog) 0 unit SC ACHS [facility] PRN Reason: Protocol Last Admin: 06/13/18 13:32 Dose: 12 u Metformin HCl (Glucophage) 500 mg PO BID [facility] Last Admin: 06/13/18 09:56 Dose: 500 mg Methylprednisolone (Solu-Medrol) 40 mg IVP Q8 [facility] Last Admin: 06/13/18 13:33 Dose: 40 mg Montelukast Sodium (Singulair) 10 mg PO HS [facility] Last Admin: 06/12/18 22:17 Dose: 10 mg Pantoprazole Sodium (Protonix Ec Tab) 40 mg PO DAILY [facility] Last Admin: 06/13/18 09:57 Dose: 40 mg Pyridoxine HCl (Vitamin B6) 100 mg PO DAILY [facility] Last Admin: 06/12/18 09:30 Dose: 100 mg Trazodone HCl (Desyrel) 100 mg PO [facility] Last Admin: 06/12/18 22:16 Dose: 100 mg - Labs Labs: 06/10/18 10:43 06/10/18 10:43 - Head Exam Head Exam: ATRAUMATIC, NORMOCEPHALIC - ENT Exam ENT Exam: Mucous Membranes Moist - Neck Exam Neck Exam: Normal Inspection - Respiratory Exam Respiratory Exam: Rhonchi - Cardiovascular Exam Cardiovascular Exam: REGULAR RHYTHM - GI/Abdominal Exam GI & Abdominal Exam: Soft, Normal Bowel Sounds - Extremities Exam Extremities Exam: Normal Inspection - Neurological Exam Neurological Exam: Alert Assessment and Plan (1) COPD exacerbation Assessment & Plan: switch to po prednisone continue nebulizer treatment Seen by psychiatry Status: Acute
[2018-06-13] MEDS: Pyridoxine 100 mg Tab PO SCH (15:09)
[2018-06-13] MEDS: Azithromycin 500mg/250ML NS 500 MG/250 ML BAG IVPB SCH (15:09)
[2018-06-14] MEDS: Albuterol-Ipratrop 3 mg / 0.5 (3 ml) UD INH SCH ×4 (01:20→19:51)
[2018-06-14] MEDS: MethylPREDNISolone 40 mg Vial IVP SCH ×3 (06:12→21:37)
[2018-06-14] MEDS: (Novolog) Insulin Aspart, Recombinant 100 u/ml 10 ml vial SC SCH ×4 (08:39→21:36)
[2018-06-14] MEDS: Pantoprazole 40 mg EC Tab PO SCH (09:39)
[2018-06-14] MEDS: guaiFENesin DM 100 mg-10 mg/5 ml UD PO SCH ×3 (09:40→17:51)
[2018-06-14] MEDS: Pyridoxine 100 mg Tab PO SCH (09:40)
[2018-06-14] MEDS: Enoxaparin 40 mg Syringe SC SCH (10:59)
[2018-06-14 14:08] LABS: BASO % 0.1 % (0.0-2.0); HEMOGLOBIN 10.1 g/dL (11.0-16.0); LYMPH # 0.2 K/uL (1.0-4.3); LYMPH % 2.4 % (20.0-40.0); MEAN CELL VOLUME 97.9 fL (81.0-99.0); MEAN CORPUSCULAR HEMOGLOBIN 32.2 pg (27.0-31.0); MEAN CORPUSCULAR HGB CONC 32.9 g/dL (33.0-37.0); MEAN PLATELET VOLUME 9.3 fL (7.2-11.7); MONO # 0.3 K/uL (0.0-0.8); MONO % 3.2 % (0.0-10.0); NEUT % 94.3 % (50.0-75.0); PLATELET COUNT 101 K/uL (130-400); RBC 3.14 Mil/uL (3.80-5.20); RED CELL DISTRIBUTION WIDTH 19.8 % (11.5-14.5); WHITE BLOOD COUNT 9.6 K/uL (4.8-10.8)
[2018-06-14] MEDS: Azithromycin 500mg/250ML NS 500 MG/250 ML BAG IVPB SCH (14:25)
[2018-06-14 14:40] LABS: BLOOD UREA NITROGEN 19 mg/dL (7-17); GFR NON-AFRICAN AMERICAN > 60
[2018-06-14 14:44] LABS: LYMPHOCYTE 1 % (20-40); MONOCYTE 3 % (0-10); NEUTROPHIL 96 % (50-75); TOTAL CELLS COUNTED 100
[2018-06-14 14:45] LABS: ANISOCYTOSIS SLIGHT; HYPOCHROMIC SLIGHT; PLATELET ESTIMATE SLIGHTLY DECREASED (NORMAL)
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
[2018-06-15] MEDS: Albuterol-Ipratrop 3 mg / 0.5 (3 ml) UD INH SCH ×4 (02:41→19:35)
[2018-06-15] MEDS: MethylPREDNISolone 40 mg Vial IVP SCH ×2 (06:01→21:13)
[2018-06-15] MEDS: (Novolog) Insulin Aspart, Recombinant 100 u/ml 10 ml vial SC SCH ×4 (08:22→22:55)
[2018-06-15] MEDS: Enoxaparin 40 mg Syringe SC SCH (10:41)
[2018-06-15] MEDS: Pantoprazole 40 mg EC Tab PO SCH (10:42)
[2018-06-15] MEDS: guaiFENesin DM 100 mg-10 mg/5 ml UD PO SCH ×3 (10:43→17:27)
[2018-06-15] MEDS: Pyridoxine 100 mg Tab PO SCH (10:45)
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
[2018-06-15] MEDS: Azithromycin 500mg/250ML NS 500 MG/250 ML BAG IVPB SCH (15:30)
[2018-06-16] MEDS: Albuterol-Ipratrop 3 mg / 0.5 (3 ml) UD INH SCH ×4 (01:21→19:36)
[2018-06-16] MEDS: (Novolog) Insulin Aspart, Recombinant 100 u/ml 10 ml vial SC SCH ×5 (02:30→22:36)
[2018-06-16] MEDS: guaiFENesin DM 100 mg-10 mg/5 ml UD PO SCH ×3 (10:00→17:38)
[2018-06-16] MEDS: Enoxaparin 40 mg Syringe SC SCH (10:00)
[2018-06-16] MEDS: Pantoprazole 40 mg EC Tab PO SCH (10:00)
[2018-06-16] MEDS: MethylPREDNISolone 40 mg Vial IVP SCH ×2 (10:00→22:31)
[2018-06-16] MEDS: Pyridoxine 100 mg Tab PO SCH (10:05)
--- NOTE | 2018-06-16 18:38 | CP.PCM.PN ---
Subjective - Date & Time of Evaluation Date of Evaluation: 06/16/18 Time of Evaluation: 17:25 - Subjective Subjective: patient seen and examined Still complaining of wheezing Breathing much improved Afebrile Stable from pulmonary standpoint Objective - Vital Signs/Intake and Output Vital Signs (last 24 hours): Temp Pulse Resp BP Pulse Ox 98.2 F 82 20 120/62 98 06/16/18 15:46 06/16/18 15:46 06/16/18 15:46 06/16/18 15:46 06/16/18 15:46 Intake and Output: 06/16/18 06/16/18 06:59 18:59 Intake Total 400 Balance 400 - Medications Medications: Current Medications Albuterol/Ipratropium (Duoneb 3 Mg/0.5 Mg (3 Ml) Ud) 3 ml INH RQ6 [facility] Last Admin: 06/16/18 13:15 Dose: 3 ml Alprazolam (Xanax) 0.5 mg PO HS [facility] Last Admin: 06/15/18 21:14 Dose: 0.5 mg Enalapril Maleate (Vasotec) 2.5 mg PO DAILY [facility] Last Admin: 06/16/18 10:00 Dose: 2.5 mg Enoxaparin Sodium (Lovenox) 40 mg SC DAILY [facility] Last Admin: 06/16/18 10:00 Dose: 40 mg Escitalopram Oxalate (Lexapro) 5 mg PO DAILY [facility] Last Admin: 06/16/18 10:00 Dose: 5 mg Guaifenesin/Dextromethorphan (Robitussin Dm) 5 ml PO TID [facility] Last Admin: 06/16/18 17:38 Dose: 5 ml Ceftriaxone Sodium 1 gm/ (Sodium Chloride) 100 mls @ 100 mls/hr IVPB DAILY [facility] PRN Reason: Protocol Last Admin: 06/16/18 13:55 Dose: 100 mls/hr Insulin Aspart (Novolog) 0 unit SC ACHS [facility] PRN Reason: Protocol Last Admin: 06/16/18 17:35 Dose: 8 u Metformin HCl (Glucophage) 500 mg PO BID [facility] Last Admin: 06/16/18 17:35 Dose: 500 mg Methylprednisolone (Solu-Medrol) 40 mg IVP Q12 [facility] Last Admin: 06/16/18 10:00 Dose: 40 mg Montelukast Sodium (Singulair) 10 mg PO HS [facility] Last Admin: 06/15/18 21:13 Dose: 10 mg Pantoprazole Sodium (Protonix Ec Tab) 40 mg PO DAILY [facility] Last Admin: 06/16/18 10:00 Dose: 40 mg Pyridoxine HCl (Vitamin B6) 100 mg PO DAILY [facility] Last Admin: 06/16/18 10:05 Dose: 100 mg Trazodone HCl (Desyrel) 100 mg PO [facility] Last Admin: 06/15/18 21:13 Dose: 100 mg - Labs Labs: 06/14/18 13:53 06/14/18 13:53 Assessment and Plan (1) COPD exacerbation Status: Acute
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
[2018-06-17] MEDS: (Novolog) Insulin Aspart, Recombinant 100 u/ml 10 ml vial SC SCH ×4 (07:50→21:57)
[2018-06-17] MEDS: Albuterol-Ipratrop 3 mg / 0.5 (3 ml) UD INH SCH ×3 (08:24→20:06)
[2018-06-17] MEDS: Pantoprazole 40 mg EC Tab PO SCH (09:31)
[2018-06-17] MEDS: Enoxaparin 40 mg Syringe SC SCH (09:32)
[2018-06-17] MEDS: MethylPREDNISolone 40 mg Vial IVP SCH ×2 (09:33→21:51)
[2018-06-17] MEDS: Pyridoxine 100 mg Tab PO SCH (09:33)
[2018-06-17] MEDS: guaiFENesin DM 100 mg-10 mg/5 ml UD PO SCH ×2 (09:36→17:14)
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
[2018-06-18] MEDS: Albuterol-Ipratrop 3 mg / 0.5 (3 ml) UD INH SCH (01:23)
[2018-06-18] MEDS: (Novolog) Insulin Aspart, Recombinant 100 u/ml 10 ml vial SC SCH ×5 (03:01→21:47)
[2018-06-18] MEDS ORDERED: (Novolog) Insulin Aspart, Recombinant 100 u/ml 10 ml vial SC ONE ×2 (05:15→06:45)
[2018-06-18] MEDS: MethylPREDNISolone 40 mg Vial IVP SCH ×2 (11:06→21:48)
[2018-06-18] MEDS: Pantoprazole 40 mg EC Tab PO SCH (11:06)
[2018-06-18] MEDS: guaiFENesin DM 100 mg-10 mg/5 ml UD PO SCH ×4 (11:25→17:44)
[2018-06-18] MEDS: Enoxaparin 40 mg Syringe SC SCH (11:38)
[2018-06-18] MEDS: Pyridoxine 100 mg Tab PO SCH (11:38)
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
[2018-06-19] MEDS: Albuterol-Ipratrop 3 mg / 0.5 (3 ml) UD INH SCH ×4 (02:54→19:35)
[2018-06-19] MEDS: (Novolog) Insulin Aspart, Recombinant 100 u/ml 10 ml vial SC SCH ×4 (08:03→22:10)
[2018-06-19] MEDS: Pantoprazole 40 mg EC Tab PO SCH (09:20)
[2018-06-19] MEDS: Pyridoxine 100 mg Tab PO SCH (09:20)
[2018-06-19] MEDS: MethylPREDNISolone 40 mg Vial IVP SCH ×2 (09:22→21:29)
[2018-06-19] MEDS: guaiFENesin DM 100 mg-10 mg/5 ml UD PO SCH ×4 (09:26→17:09)
[2018-06-19 11:28] LABS: BASO % 0.4 % (0.0-2.0); EOS % 0.1 % (0.0-4.0); HEMOGLOBIN 11.2 g/dL (11.0-16.0); LYMPH # 0.6 K/uL (1.0-4.3); MEAN CELL VOLUME 97.9 fL (81.0-99.0); MEAN CORPUSCULAR HEMOGLOBIN 32.7 pg (27.0-31.0); MEAN CORPUSCULAR HGB CONC 33.4 g/dL (33.0-37.0); MEAN PLATELET VOLUME 9.3 fL (7.2-11.7); MONO # 0.5 K/uL (0.0-0.8); MONO % 5.3 % (0.0-10.0); NEUT % 87.2 % (50.0-75.0); NRBC % 0.1 % (0.0-2.0); PLATELET COUNT 100 K/uL (130-400); RBC 3.42 Mil/uL (3.80-5.20); RED CELL DISTRIBUTION WIDTH 19.5 % (11.5-14.5); WHITE BLOOD COUNT 9.1 K/uL (4.8-10.8)
[2018-06-19 11:45] LABS: ALBUMIN 3.2 g/dL (3.5-5.0); ALT/SGPT 158 U/L (9-52); AST/SGOT 72 U/L (14-36); BLOOD UREA NITROGEN 21 mg/dL (7-17); CALCIUM 8.8 mg/dl (8.6-10.4); GFR NON-AFRICAN AMERICAN > 60
[2018-06-19 11:51] LABS: LYMPHOCYTE 4 % (20-40); MONOCYTE 1 % (0-10); NEUTROPHIL 95 % (50-75); TOTAL CELLS COUNTED 100
[2018-06-19 11:52] LABS: ANISOCYTOSIS SLIGHT; HYPOCHROMIC SLIGHT; PLATELET ESTIMATE SLIGHTLY DECREASED (NORMAL); POLYCHROMIC SLIGHT
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
[2018-06-20] MEDS: Albuterol-Ipratrop 3 mg / 0.5 (3 ml) UD INH SCH ×4 (01:54→23:54)
[2018-06-20] MEDS: (Novolog) Insulin Aspart, Recombinant 100 u/ml 10 ml vial SC SCH ×4 (08:42→21:49)
[2018-06-20] MEDS: MethylPREDNISolone 40 mg Vial IVP SCH ×2 (10:12→21:44)
[2018-06-20] MEDS: guaiFENesin DM 100 mg-10 mg/5 ml UD PO SCH ×3 (10:13→17:09)
[2018-06-20] MEDS: Pantoprazole 40 mg EC Tab PO SCH (10:13)
[2018-06-20] MEDS: Pyridoxine 100 mg Tab PO SCH (10:14)
--- NOTE | 2018-06-20 10:43 | CP.PCM.PN ---
Subjective - Date & Time of Evaluation Date of Evaluation: 06/20/18 Time of Evaluation: 10:33 - Subjective Subjective: PGY 3 Med Note- Dr. Willard Can's service Patient seen and examined. Patient with productive cough. Patient states that she is wheezing continuously without relief. Patient admits to chest discomfort with cough. Objective - Vital Signs/Intake and Output Vital Signs (last 24 hours): Temp Pulse Resp BP Pulse Ox 98.2 F 79 20 125/71 95 06/20/18 07:27 06/20/18 07:27 06/20/18 07:27 06/20/18 10:13 06/20/18 07:27 Intake and Output: 06/20/18 06/20/18 06:59 18:59 Intake Total 240 Balance 240 - Medications Medications: Current Medications Albuterol/Ipratropium (Duoneb 3 Mg/0.5 Mg (3 Ml) Ud) 3 ml INH RQ6 [facility] Last Admin: 06/20/18 07:43 Dose: 3 ml Enalapril Maleate (Vasotec) 2.5 mg PO DAILY [facility] Last Admin: 06/20/18 10:13 Dose: 2.5 mg Escitalopram Oxalate (Lexapro) 5 mg PO DAILY [facility] Last Admin: 06/20/18 10:14 Dose: 5 mg Guaifenesin/Dextromethorphan (Robitussin Dm) 5 ml PO TID [facility] Last Admin: 06/20/18 10:13 Dose: 5 ml Ceftriaxone Sodium 1 gm/ (Sodium Chloride) 100 mls @ 100 mls/hr IVPB DAILY [facility]; Protocol Last Admin: 06/20/18 10:12 Dose: 100 mls/hr Insulin Aspart (Novolog) 0 unit SC ACHS [facility]; Protocol Last Admin: 06/20/18 08:42 Dose: 10 u Metformin HCl (Glucophage) 500 mg PO BID [facility] Last Admin: 06/20/18 10:12 Dose: 500 mg Methylprednisolone (Solu-Medrol) 40 mg IVP Q12 [facility] Last Admin: 06/20/18 10:12 Dose: 40 mg Montelukast Sodium (Singulair) 10 mg PO HS [facility] Last Admin: 06/19/18 21:30 Dose: 10 mg Pantoprazole Sodium (Protonix Ec Tab) 40 mg PO DAILY [facility] Last Admin: 09/26/18 10:13 Dose: 40 mg Pyridoxine HCl (Vitamin B6) 100 mg PO DAILY [facility] Last Admin: 06/20/18 10:14 Dose: 100 mg Trazodone HCl (Desyrel) 100 mg PO HS [facility] Last Admin: 06/19/18 21:30 Dose: 100 mg - Labs Labs: 06/19/18 11:20 06/19/18 11:20 - Constitutional Appears: Non-toxic, No Acute Distress - Head Exam Head Exam: ATRAUMATIC, NORMAL INSPECTION - Eye Exam Eye Exam: EOMI - ENT Exam ENT Exam: Mucous Membranes Moist - Neck Exam Neck Exam: Full ROM - Respiratory Exam Respiratory Exam: Decreased Breath Sounds, Rhonchi, Wheezes - Cardiovascular Exam Cardiovascular Exam: +S1, +S2 - GI/Abdominal Exam GI & Abdominal Exam: Soft - Extremities Exam Extremities Exam: Full ROM, Normal Capillary Refill, Normal Inspection - Back Exam Back Exam: Full ROM, NORMAL INSPECTION - Neurological Exam Neurological Exam: Alert, Awake, Oriented x3 - Psychiatric Exam Psychiatric exam: Normal Affect, Normal Mood - Skin Skin Exam: Normal Color, Warm Assessment and Plan - Assessment and Plan (Free Text) Assessment: COPD exacerbation Assessment & Plan: With Asthma exacerbation 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 Repeat CXR due to clinical exam findings. Cardiology evaluated- Not cardiac etiology 03/14/18: Normal coronaries and EF Troponin negative X1 Monitor DM Assessment & Plan: Metformin BID On Enalapril ISS Cont to monitor Bipolar History Assessment & Plan: Management per Psych. Cont to monitor Prophylactic Measure Assessment & Plan: PPI 40 mg PO daily [facility] Ambulates Discussed with attending. All planning and management per Dr. Willard Can.
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
[2018-06-21] MEDS: Albuterol-Ipratrop 3 mg / 0.5 (3 ml) UD INH SCH ×6 (04:23→23:55)
[2018-06-21] MEDS: MethylPREDNISolone 40 mg Vial IVP SCH ×3 (05:28→21:33)
[2018-06-21 07:39] LABS: BASO % 0.3 % (0.0-2.0); EOS % 0.5 % (0.0-4.0); HEMOGLOBIN 11.5 g/dL (11.0-16.0); LYMPH # 0.7 K/uL (1.0-4.3); LYMPH % 9.4 % (20.0-40.0); MEAN CORPUSCULAR HEMOGLOBIN 32.8 pg (27.0-31.0); MEAN CORPUSCULAR HGB CONC 34.2 g/dL (33.0-37.0); MEAN PLATELET VOLUME 8.9 fL (7.2-11.7); MONO # 0.5 K/uL (0.0-0.8); NEUT # 5.9 K/uL (1.8-7.0); NEUT % 82.8 % (50.0-75.0); PLATELET COUNT 109 K/uL (130-400); RBC 3.51 Mil/uL (3.80-5.20); RED CELL DISTRIBUTION WIDTH 18.8 % (11.5-14.5); WHITE BLOOD COUNT 7.1 K/uL (4.8-10.8)
[2018-06-21 07:47] LABS: ALB/GLOB RATIO 1.1 (1.0-2.1); ALBUMIN 3.3 g/dL (3.5-5.0); ALT/SGPT 159 U/L (9-52); AST/SGOT 81 U/L (14-36); BLOOD UREA NITROGEN 17 mg/dL (7-17); CALCIUM 8.8 mg/dl (8.6-10.4); GFR NON-AFRICAN AMERICAN > 60
[2018-06-21] MEDS: (Novolog) Insulin Aspart, Recombinant 100 u/ml 10 ml vial SC SCH ×4 (07:59→21:43)
[2018-06-21 09:07] LABS: LYMPHOCYTE 6 % (20-40); MONOCYTE 10 % (0-10); NEUTROPHIL 84 % (50-75); PLATELET ESTIMATE SLIGHTLY DECREASED (NORMAL); TOTAL CELLS COUNTED 100
[2018-06-21 09:08] LABS: ANISOCYTOSIS SLIGHT; HYPOCHROMIC SLIGHT
[2018-06-21 09:13] LABS: POLYCHROMIC SLIGHT
--- NOTE | 2018-06-21 09:23 | CP.PCM.PN ---
Subjective - Date & Time of Evaluation Date of Evaluation: 06/21/18 Time of Evaluation: 09:23 - Subjective Subjective: PGY2 Medicine Note for Dr. Brian Can Patient seen and examined this morning at bedside. No acute events overnight. Patient reports a mild headache with sinus congestion. She is still coughing and complaining of wheezing and shortness of breath. She is tolerating her diet and has no other complaints at this time. Denies fevers, chills, nausea, vomiting, diarrhea, constipation, chest pain, abdominal pain, numbness or tingling. Objective - Vital Signs/Intake and Output Vital Signs (last 24 hours): Temp Pulse Resp BP Pulse Ox 98.3 F 76 20 112/60 96 06/21/18 07:49 06/21/18 07:49 06/21/18 07:49 06/21/18 07:49 06/21/18 07:49 Intake and Output: 06/21/18 06/21/18 06:59 18:59 Intake Total 360 Balance 360 - Medications Medications: Current Medications Albuterol/Ipratropium (Duoneb 3 Mg/0.5 Mg (3 Ml) Ud) 3 ml INH RQ4 [facility] Last Admin: 06/21/18 07:45 Dose: 3 ml Enalapril Maleate (Vasotec) 2.5 mg PO DAILY [facility] Last Admin: 06/20/18 10:13 Dose: 2.5 mg Escitalopram Oxalate (Lexapro) 5 mg PO DAILY [facility] Last Admin: 06/20/18 10:14 Dose: 5 mg Guaifenesin/Dextromethorphan (Robitussin Dm) 5 ml PO TID [facility] Last Admin: 06/20/18 17:09 Dose: 5 ml Ceftriaxone Sodium 1 gm/ (Sodium Chloride) 100 mls @ 100 mls/hr IVPB DAILY [facility]; Protocol Last Admin: 06/20/18 10:12 Dose: 100 mls/hr Insulin Aspart (Novolog) 0 unit SC ACHS [facility]; Protocol Last Admin: 06/21/18 07:59 Dose: 8 u Metformin HCl (Glucophage) 500 mg PO BID [facility] Last Admin: 06/20/18 17:09 Dose: 500 mg Methylprednisolone (Solu-Medrol) 40 mg IVP Q8 [facility] Last Admin: 06/21/18 05:28 Dose: 40 mg Montelukast Sodium (Singulair) 10 mg PO HS [facility] Last Admin: 06/20/18 21:43 Dose: 10 mg Pantoprazole Sodium (Protonix Ec Tab) 40 mg PO DAILY [facility] Last Admin: 06/20/18 10:13 Dose: 40 mg Pyridoxine HCl (Vitamin B6) 100 mg PO DAILY [facility] Last Admin: 06/20/18 10:14 Dose: 100 mg Trazodone HCl (Desyrel) 100 mg PO [facility] Last Admin: 06/20/18 21:43 Dose: 100 mg - Labs Labs: 06/21/18 07:25 06/21/18 07:25 - Constitutional Appears: Non-toxic, No Acute Distress - Head Exam Head Exam: ATRAUMATIC, NORMOCEPHALIC - Eye Exam Eye Exam: Normal appearance - ENT Exam ENT Exam: Mucous Membranes Moist Additional comments: Rhinorrhea, frontal and maxillary sinuses tender to palpation. - Neck Exam Neck Exam: absent: Lymphadenopathy - Respiratory Exam Respiratory Exam: Clear to Ausculation Bilateral, NORMAL BREATHING PATTERN. absent: Accessory Muscle Use, Rales, Rhonchi, Wheezes, Respiratory Distress - Cardiovascular Exam Cardiovascular Exam: REGULAR RHYTHM, +S1, +S2 - GI/Abdominal Exam GI & Abdominal Exam: Soft, Normal Bowel Sounds. 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 Repeat CXR due to clinical exam findings. CXR (06/20/18): No active disease. No significant interval change compared to the prior examination(s). Cardiology evaluated- Not cardiac etiology 03/14/18: Normal coronaries and EF Troponin negative X1 Continue to monitor Diabetes Metformin BID On Enalapril ISS Continue to monitor Bipolar History Management per Psych. Continue to monitor Prophylactic Measure PPI 40 mg PO daily SCDs Ambulates DISPO: Pending pulm clearance for discharge. All medical management per Dr. Brian Can
--- NOTE | 2018-06-21 09:49 | RAD ---
Date of service: 06/20/2018 HISTORY: dyspnea, wheezing rhonchi on exam COMPARISON: 06/10/2018 FINDINGS: LUNGS: No active pulmonary disease. PLEURA: No significant pleural effusion identified, no pneumothorax apparent. CARDIOVASCULAR: No radiographic findings to suggest acute or significant cardiovascular disease. OSSEOUS STRUCTURES: No significant abnormalities. VISUALIZED UPPER ABDOMEN: Normal. OTHER FINDINGS: None. IMPRESSION: No active disease. No significant interval change compared to the prior examination(s).
[2018-06-21] MEDS: guaiFENesin DM 100 mg-10 mg/5 ml UD PO SCH ×3 (09:53→17:26)
[2018-06-21] MEDS: Pyridoxine 100 mg Tab PO SCH (09:54)
[2018-06-21] MEDS: Pantoprazole 40 mg EC Tab PO SCH (09:54)
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
[2018-06-22] MEDS: Albuterol-Ipratrop 3 mg / 0.5 (3 ml) UD INH SCH ×6 (03:25→23:55)
[2018-06-22] MEDS: MethylPREDNISolone 40 mg Vial IVP SCH ×4 (05:09→22:16)
--- NOTE | 2018-06-22 08:43 | CP.PCM.PCO ---
Physician Communication Note - Physician Communication Note Physician Communication Note: Pul. Dr. Gupta cleared patient for discharge
[2018-06-22] MEDS: (Novolog) Insulin Aspart, Recombinant 100 u/ml 10 ml vial SC SCH ×4 (08:57→21:47)
[2018-06-22] MEDS: Pantoprazole 40 mg EC Tab PO SCH (09:46)
[2018-06-22] MEDS: guaiFENesin DM 100 mg-10 mg/5 ml UD PO SCH ×3 (09:46→17:48)
[2018-06-22] MEDS: Pyridoxine 100 mg Tab PO SCH (09:46)
[2018-06-22] MEDS ORDERED: Influenza Vaccine 60 MCG/0.5 ML SYR (3 yr & up) IM ONE (10:00)
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
--- NOTE | 2018-06-22 13:36 | CP.PCM.PN ---
Subjective - Date & Time of Evaluation Date of Evaluation: 06/22/18 Time of Evaluation: 13:00 - Subjective Subjective: patient seen and examined Slight cough Breathing much improved Lying comfortably in no distress Stable from pulmonary standpoint Objective - Vital Signs/Intake and Output Vital Signs (last 24 hours): Temp Pulse Resp BP Pulse Ox 98.7 F 92 H 20 132/87 95 06/22/18 08:00 06/22/18 08:00 06/22/18 08:00 06/22/18 09:46 06/22/18 08:00 Intake and Output: 06/22/18 06/22/18 06:59 18:59 Intake Total 490 Balance 490 - Medications Medications: Current Medications Acetaminophen (Tylenol 325mg Tab) 650 mg PO Q6 PRN PRN Reason: headache or fever >100.4F Last Admin: 06/22/18 09:47 Dose: 650 mg Albuterol/Ipratropium (Duoneb 3 Mg/0.5 Mg (3 Ml) Ud) 3 ml INH RQ4 [facility] Last Admin: 06/22/18 12:49 Dose: 3 ml Enalapril Maleate (Vasotec) 2.5 mg PO DAILY [facility] Last Admin: 06/22/18 09:46 Dose: 2.5 mg Escitalopram Oxalate (Lexapro) 5 mg PO DAILY [facility] Last Admin: 06/22/18 09:45 Dose: 5 mg Guaifenesin/Dextromethorphan (Robitussin Dm) 5 ml PO TID [facility] Last Admin: 06/22/18 09:46 Dose: 5 ml Insulin Aspart (Novolog) 0 unit SC [facility]; Protocol Last Admin: 06/22/18 11:52 Dose: 8 u Metformin HCl (Glucophage) 500 mg PO BID [facility] Last Admin: 06/22/18 09:44 Dose: 500 mg Methylprednisolone (Solu-Medrol) 40 mg IVP Q8 [facility] Last Admin: 06/22/18 05:09 Dose: 40 mg Montelukast Sodium (Singulair) 10 mg PO HS [facility] Last Admin: 06/21/18 21:33 Dose: 10 mg Pantoprazole Sodium (Protonix Ec Tab) 40 mg PO DAILY [facility] Last Admin: 06/22/18 09:46 Dose: 40 mg Pyridoxine HCl (Vitamin B6) 100 mg PO DAILY [facility] Last Admin: 06/22/18 09:46 Dose: 100 mg Trazodone HCl (Desyrel) 100 mg PO HS [facility] Last Admin: 06/21/18 21:33 Dose: 100 mg - Labs Labs: 06/21/18 07:25 06/21/18 07:25 - Head Exam Head Exam: ATRAUMATIC, NORMOCEPHALIC - ENT Exam ENT Exam: Mucous Membranes Moist - Respiratory Exam Respiratory Exam: Clear to Ausculation Bilateral Assessment and Plan (1) COPD exacerbation Assessment & Plan: discharge home on prednisone, rescue inhaler Followup in the office Status: Acute
[2018-06-23] MEDS: Albuterol-Ipratrop 3 mg / 0.5 (3 ml) UD INH SCH ×3 (03:24→11:24)
[2018-06-23 07:44] VITALS: PULSE 77; TEMP 97.6; O2SAT 97
[2018-06-23] MEDS: (Novolog) Insulin Aspart, Recombinant 100 u/ml 10 ml vial SC SCH ×2 (07:48→11:46)
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
[2018-06-23] MEDS: guaiFENesin DM 100 mg-10 mg/5 ml UD PO SCH ×2 (09:43→13:51)
[2018-06-23] MEDS: Pyridoxine 100 mg Tab PO SCH (09:44)
[2018-06-23] MEDS: Pantoprazole 40 mg EC Tab PO SCH (09:44)
[2018-06-23 09:45] VITALS: BP 132/65
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
--- NOTE | 2018-06-23 14:24 | CP.PCM.PN ---
Subjective - Date & Time of Evaluation Date of Evaluation: 06/23/18 Time of Evaluation: 14:24 - Subjective Subjective: Alert, awake, orientedx3, ambulatory, NAD. Objective - Vital Signs/Intake and Output Vital Signs (last 24 hours): Temp Pulse Resp BP Pulse Ox 97.6 F 77 20 132/65 97 06/23/18 07:43 06/23/18 07:43 06/23/18 07:43 06/23/18 09:43 06/23/18 07:43 Intake and Output: 06/23/18 06/23/18 06:59 18:59 Intake Total 960 Balance 960 - Medications Medications: Current Medications Acetaminophen (Tylenol 325mg Tab) 650 mg PO Q6 PRN PRN Reason: headache or fever >100.4F Last Admin: 06/22/18 09:47 Dose: 650 mg Albuterol/Ipratropium (Duoneb 3 Mg/0.5 Mg (3 Ml) Ud) 3 ml INH RQ4 [facility] Last Admin: 06/23/18 11:24 Dose: 3 ml Enalapril Maleate (Vasotec) 2.5 mg PO DAILY [facility] Last Admin: 06/23/18 09:43 Dose: 2.5 mg Escitalopram Oxalate (Lexapro) 5 mg PO DAILY [facility] Last Admin: 06/23/18 09:43 Dose: 5 mg Guaifenesin/Dextromethorphan (Robitussin Dm) 5 ml PO TID [facility] Last Admin: 06/23/18 13:51 Dose: 5 ml Insulin Aspart (Novolog) 0 unit SC [facility]; Protocol Last Admin: 06/23/18 11:46 Dose: 6 u Metformin HCl (Glucophage) 500 mg PO BID [facility] Last Admin: 06/23/18 09:43 Dose: 500 mg Montelukast Sodium (Singulair) 10 mg PO HS [facility] Last Admin: 06/22/18 21:48 Dose: 10 mg Pantoprazole Sodium (Protonix Ec Tab) 40 mg PO DAILY [facility] Last Admin: 06/23/18 09:44 Dose: 40 mg Prednisone (Prednisone Tab) 20 mg PO BID [facility] Stop: 06/27/18 22:00 Last Admin: 06/23/18 09:44 Dose: 20 mg Pyridoxine HCl (Vitamin B6) 100 mg PO DAILY [facility] Last Admin: 06/23/18 09:44 Dose: 100 mg Trazodone HCl (Desyrel) 100 mg PO HS [facility] Last Admin: 06/22/18 21:48 Dose: 100 mg - Labs Labs: 06/21/18 07:25 06/21/18 07:25 Assessment and Plan - Assessment and Plan (Free Text) Assessment: 67 YR old female admitted with asthma exacerbation, seen and examined. Alert and orientedx3, no sob or chest pains. Cough is improving. Cleared by DR Gupta, discussed with roel Acuña discharge home today on prednisone and rescue inhalers. Advised to monitor blood sugar at home and follow up with the doctor. Advised to follow up with PMD in 1 week.
== END 2018-06-23 14:10 | disposition home or self-care (01) | DRG 191 ==
LOC: C.ER 09:15 → C.9E 11:35 → C.9I 19:58 → C.6T 06-11 09:29 → OBSVTOIN 06-14 15:27 → C.3T 06-18 08:49 → C.6T 06-18 08:58 → C.3T 06-18 09:08
PROVIDERS: ADMIT Internal Medicine Nephrology; ATTEND Internal Medicine Nephrology
DX: J44.1 Chronic obstructive pulmonary disease with (acute) exacerbation (principal); J45.901 Unspecified asthma with (acute) exacerbation; K21.9 Gastro-esophageal reflux disease without esophagitis; E03.9 Hypothyroidism, unspecified; E11.649 Type 2 diabetes mellitus with hypoglycemia without coma; E66.9 Obesity, unspecified; E78.00 Pure hypercholesterolemia, unspecified; F31.9 Bipolar disorder, unspecified; F41.1 Generalized anxiety disorder; I10 Essential (primary) hypertension; I25.10 Atherosclerotic heart disease of native coronary artery without angina pectoris; Z95.1 Presence of aortocoronary bypass graft; Z95.5 Presence of coronary angioplasty implant and graft; F17.210 Nicotine dependence, cigarettes, uncomplicated; Z86.711 Personal history of pulmonary embolism; K74.60 Unspecified cirrhosis of liver; K70.10 Alcoholic hepatitis without ascites

== ENCOUNTER 2018-07-08 01:41 | Emergency (ER) | payer MEDICARE, OTHER ==
[2018-07-08 01:41] VITALS: BMI 23.8
[2018-07-08] MEDS ORDERED: Sodium Chloride 0.9% 1,000 ML IV ONE ×2 (01:57→03:22)
--- NOTE | 2018-07-08 01:58 | C.PDOC ---
History Of Present Illness Patient presents to ED c/o elevated blood sugar (>500 at home), nausea, vomiting and abdominal pain x 2-3 days. She denies chest pain, SOB, cough, fever, dysuria/hematuria. She states she has been compliant with her DM medication (Metformin). Time Seen by Provider: 07/08/18 01:57 Chief Complaint (Nursing): Abdominal Pain History Per: Patient History/Exam Limitations: no limitations Onset/Duration Of Symptoms: Hrs Current Symptoms Are (Timing): Still Present Severity: Mild Location Of Pain/Discomfort: Diffuse Quality Of Discomfort: "Pain" Associated Symptoms: Nausea, Vomiting. denies: Urinary Symptoms Past Medical History Reviewed: Historical Data, Nursing Documentation, Vital Signs Vital Signs: Last Vital Signs Temp 98.8 F 07/08/18 01:50 Pulse 108 H 07/08/18 01:50 Resp 22 07/08/18 01:50 BP 117/60 07/08/18 01:50 Pulse Ox 97 07/08/18 01:50 - Medical History PMH: Anemia, Anxiety, Arthritis, Asthma, Bipolar Disorder, Bronchitis, CAD, COPD, Depression, Diabetes, Gastritis, GERD, HTN, Hypercholesterolemia, Hyp othyroidism, Osteoporosis, Peripheral Edema, Pneumonia, Pulmonary Embolism Surgical History: CABG, Cholecystectomy, Coronary Stent - [facility] Procedures ALCOHOL DETOXIFICATION (03/15/15) EXCISION OF STOMACH, ENDO, DIAGN (05/29/18) FLUOROSCOPY OF MULT COR ART USING L OSM CONTRAST (03/10/18) GROUP PSYCHOTHERAPY (02/03/18) INDIV PSYCHOTHERAPY FOR SUBSTANCE ABUSE, COGNITIV BEHAVIORAL (02/03/18) INDIVID PSYCHOTHERAP NEC (04/14/13) INDIVIDUAL PSYCHOTHERAPY, COGNITIVE-BEHAVIORAL (02/03/18) INTRODUCTION OF ANTI-INFLAM INTO RESP TRACT, VIA OPENING (01/25/17) INTRODUCTION OF SERUM/TOX/VACCINE INTO MUSCLE, PERC APPROACH (09/02/17) MEASURE OF CARDIAC SAMPL & PRESSURE, L HEART, PERC APPROACH (03/10/18) OTHER GROUP THERAPY (04/14/13) PHYSICAL THERAPY NEC (06/12/14) Family History: States: No Known Family Hx - Social History Hx Tobacco Use: Yes Hx Alcohol Use: Yes (No longer drinks alcohol) Hx Substance Use: No - Immunization History Hx Tetanus Toxoid Vaccination: No Hx Influenza Vaccination: No Hx Pneumococcal Vaccination: No Review Of Systems Constitutional: Negative for: Fever, Chills Cardiovascular: Negative for: Chest Pain, Palpitations Gastrointestinal: Positive for: Nausea, Vomiting, Abdominal Pain. Negative for: Diarrhea Genitourinary: Negative for: Dysuria, Hematuria Physical Exam - Physical Exam Appears: Well, Non-toxic, No Acute Distress Oral Mucosa: Moist Cardiovascular: Rhythm Regular Respiratory: Normal Breath Sounds, No Rales, No Rhonchi, No Wheezing Gastrointestinal/Abdominal: Bowel Sounds, Soft, Tenderness (mild diffuse TTP, (- ) McBurney's, (-) Lobo's), No Distention, No Guarding, No Rebound Back: Normal Inspection, No CVA Tenderness Neurological/Psych: Oriented x3 ED Course And Treatment - Laboratory Results Result Diagrams: 07/08/18 02:22 07/08/18 02:22 ECG: Interpreted By Me, Viewed By Me (NSR 91 bpm, normal axis, LBBB (seen on prior EKG), no acute ST changes) ECG Interpretation: No Acute Changes O2 Sat by Pulse Oximetry: 97 (RA) Pulse Ox Interpretation: Normal Progress Note: Blood work, EKG ordered and reviewed. Patient given IV NS bolus x 2, IV insulin. Reevaluation Time: 04:45 Reassessment Condition: Improved (On reassessment, patient is resting comfortably and states she feels better. On exam, abdomen is soft and nontender. No evidence of gap metabolic acidosis on blood work. Repeat accuchecl 169. Patient discharged home, instructed to follow up with PMD/clinic in 1-2 days. She understands she should return to ED if symptoms worsen.) Critical Care Time - Critical Care Note Total Time (in mins): 35 Documented critical care: time excludes all time spent performing seperately billable procedures. Disposition Counseled Patient/Family Regarding: Studies Performed, Diagnosis, Need For Followup - Disposition Referrals: [facility] [Outside] Disposition: HOME/ ROUTINE Disposition Time: 04:45 Condition: STABLE Additional Instructions: FOLLOW UP IN THE MEDICAL CLINIC IN 1-2 DAYS CONTINUE YOUR DIABETES MEDICATIONS DRINK PLENTY OF FLUIDS RETURN TO EMERGENCY ROOM IF SYMPTOMS WORSEN SEGUIR EN LA CLNICA MDICA EN 1-2 [place] CONTINE JOSE ARMANDO MEDICAMENTOS PARA LA DIABETES BEBER MUCHO LQUIDO VUELVA A LA DARSHANA DE EMERGENCIA SI LOS SNTOMAS SE POSEY PROBLEMAS Instructions: Hyperglycemia, Adult (DC) Forms: [facility] (Nepali) Print Language: INDONESIAN - POA Present On Arrival: None - Clinical Impression Clinical Impression: Hyperglycemia
[2018-07-08 02:28] LABS: BASO # 0.1 K/uL (0.0-0.2); BASO % 1.2 % (0.0-2.0); EOS # 0.1 K/uL (0.0-0.7); EOS % 1.2 % (0.0-4.0); HEMOGLOBIN 11.9 g/dL (11.0-16.0); LYMPH # 2.3 K/uL (1.0-4.3); LYMPH % 44.8 % (20.0-40.0); MEAN CELL VOLUME 92.9 fL (81.0-99.0); MEAN CORPUSCULAR HGB CONC 33.3 g/dL (33.0-37.0); MEAN PLATELET VOLUME 9.1 fL (7.2-11.7); MONO # 0.5 K/uL (0.0-0.8); NEUT # 2.2 K/uL (1.8-7.0); NEUT % 42.8 % (50.0-75.0); NRBC % 0.1 % (0.0-2.0); RBC 3.86 Mil/uL (3.80-5.20); RED CELL DISTRIBUTION WIDTH 16.4 % (11.5-14.5); WHITE BLOOD COUNT 5.2 K/uL (4.8-10.8)
[2018-07-08 02:32] LABS: VENOUS BLOOD GAS BASE EXCESS 1.3 mmol/L (0.0-2.0); VENOUS BLOOD GAS PCO2 36 mmHg (40-60); VENOUS BLOOD GAS PO2 52 mm/Hg (30-55); VENOUS BLOOD PH 7.45 (7.32-7.43)
[2018-07-08 03:08] LABS: ALB/GLOB RATIO 0.9 (1.0-2.1); ALBUMIN 3.3 g/dL (3.5-5.0); ALT/SGPT 64 U/L (9-52); AST/SGOT 90 U/L (14-36); BLOOD UREA NITROGEN 6 mg/dL (7-17); CALCIUM 8.9 mg/dl (8.6-10.4); GFR NON-AFRICAN AMERICAN > 60; LIPASE 188 U/L (23-300)
[2018-07-08 03:14] LABS: SQUAMOUS EPITHIAL 1 /hpf (0-5); URINE BACTERIA FEW (<OCC); URINE BILIRUBIN NEGATIVE (NEGATIVE); URINE BLOOD NEGATIVE (NEGATIVE); URINE CLARITY Clear (Clear); URINE COLOR Straw (YELLOW); URINE GLUCOSE (UA) 3+ mg/dL (Normal); URINE LEUKOCYTE ESTERASE TRACE Leu/uL (Negative); URINE PROTEIN NEGATIVE (NEGATIVE); URINE UROBILINOGEN NORMAL mg/dL (0.2-1.0)
[2018-07-08] MEDS ORDERED: (Novolin R) Insulin Human Regular 100 units/ml vial IVP ONE (03:22)
[2018-07-08] MEDS ORDERED: (Novolin R) Insulin Human Regular 100 units/ml vial ONE (03:33)
[2018-07-08 05:10] VITALS: BP 120/80; PULSE 98; RESP 20; TEMP 98
--- NOTE | 2018-07-09 23:07 | CARD ---
APPROVED REPORT Date of service: 07/08/2018 EKG Measurement Heart [id number] <Conclusion> Normal sinus rhythm Possible Left atrial enlargement Left bundle branch block Abnormal ECG
[2018-07-10 14:27] VITALS: O2SAT 97
== END 2018-07-08 05:08 | disposition home or self-care (01) ==
LOC: C.ER 01:41
DX: E11.65 Type 2 diabetes mellitus with hyperglycemia (principal); Z79.84 Long term (current) use of oral hypoglycemic drugs
CPT/HCPCS: 80053; 81001; 82009; 82803; 82948; 83690; 83930; 85025; 93005; 96374; 99283; J7030

== ENCOUNTER 2018-07-08 16:27 | Emergency (ER) | payer MEDICARE, OTHER ==
[2018-07-08 16:35] VITALS: BMI 28.3
[2018-07-08 16:43] VITALS: TEMP 99
[2018-07-08] MEDS ORDERED: Sodium Chloride 0.9% 1,000 ML IV STA (17:13)
--- NOTE | 2018-07-08 17:21 | C.PDOC ---
History Of Present Illness 68 year old female presents to ED with complaints of chest pain x2 days, associated with abdominal pain. States she came here in the ER last night for similar symptoms and got blood work done. Otherwise she denies any SOB, diaphoresis, nausea, vomiting, or diarrhea. Time Seen by Provider: 07/08/18 16:46 Chief Complaint (Nursing): Chest Pain History Per: Patient History/Exam Limitations: no limitations Onset/Duration Of Symptoms: Days Current Symptoms Are (Timing): Still Present Past Medical History Reviewed: Historical Data, Nursing Documentation, Vital Signs Vital Signs: Last Vital Signs Temp 99.0 F 07/08/18 16:35 Pulse 85 07/08/18 17:02 Resp 20 07/08/18 16:35 BP 154/78 H 07/08/18 16:35 Pulse Ox 99 07/08/18 16:35 - Medical History PMH: Anemia, Anxiety, Arthritis, Asthma, Bipolar Disorder, Bronchitis, CAD, COPD, Depression, Diabetes, Gastritis, GERD, HTN, Hypercholesterolemia, Hypothyroidism, Osteoporosis, Peripheral Edema, Pneumonia, Pulmonary Embolism Denies: Hepatitis, HIV, Chronic Kidney Disease, Seizures, Sexually Transmitted Disease Surgical History: CABG, Cholecystectomy, Coronary Stent - [facility] Procedures ALCOHOL DETOXIFICATION (03/15/15) EXCISION OF STOMACH, ENDO, DIAGN (05/29/18) FLUOROSCOPY OF MULT COR ART USING L OSM CONTRAST (03/10/18) GROUP PSYCHOTHERAPY (02/03/18) INDIV PSYCHOTHERAPY FOR SUBSTANCE ABUSE, COGNITIV BEHAVIORAL (02/03/18) INDIVID PSYCHOTHERAP NEC (04/14/13) INDIVIDUAL PSYCHOTHERAPY, COGNITIVE-BEHAVIORAL (02/03/18) INTRODUCTION OF ANTI-INFLAM INTO RESP TRACT, VIA OPENING (01/25/17) INTRODUCTION OF SERUM/TOX/VACCINE INTO MUSCLE, PERC APPROACH (09/02/17) MEASURE OF CARDIAC SAMPL & PRESSURE, L HEART, PERC APPROACH (03/10/18) OTHER GROUP THERAPY (04/14/13) PHYSICAL THERAPY NEC (06/12/14) Family History: States: No Known Family Hx - Social History Hx Tobacco Use: Yes Hx Alcohol Use: Yes (No longer drinks alcohol) Hx Substance Use: No - Immunization History Hx Tetanus Toxoid Vaccination: No Hx Influenza Vaccination: No Hx Pneumococcal Vaccination: No Review Of Systems Except As Marked, All Systems Reviewed And Found Negative. Constitutional: Negative for: Fever, Sweats Cardiovascular: Positive for: Chest Pain. Negative for: Palpitations Respiratory: Negative for: Shortness of Breath Gastrointestinal: Positive for: Abdominal Pain. Negative for: Nausea, Vomiting, Diarrhea Physical Exam - Physical Exam Additional Physical Exam Comments: Constitutional: No acute distress. Head: Normocephalic. Atraumatic. Eyes: PERRL. ENT: Moist mucous membranes. Neck: Supple. Cardiovascular: Regular rate. Radial pulse 2+ bilaterally. Chest: No tenderness. Respiratory: Clear to auscultation bilaterally. GI: Diffuse tenderness. No guarding. No rebound. Back: No CVA tenderness. Musculoskeletal: No tenderness or swelling of extremities. Pitting edema bilaterally. Skin: No rash. Neurologic: Alert, no focal deficit. ED Course And Treatment - Laboratory Results Result Diagrams: 07/08/18 17:34 07/08/18 17:34 ECG: Interpreted By Me, Viewed By Me ECG Rhythm: Sinus Rhythm, L BBB Interpretation Of ECG: No concordance ST elevation. Rate From EC O2 Sat by Pulse Oximetry: 99 (RA) Pulse Ox Interpretation: Normal - CT Scan/US CT Abd/Pel Other Rad Studies (CT/US): Read By Radiologist, Radiology Report Reviewed CT/US Interpretation: FINDINGS: LUNG BASES: The lung bases appear clear. No pleural effusions are seen. LIVER: Unremarkable. GALLBLADDER AND BILE DUCTS: The gallbladder has been removed. PANCREAS: Unremarkable. SPLEEN: Unremarkable. ADRENAL GLANDS: Unremarkable. KIDNEYS, URETERS, AND BLADDER: The kidneys appear within normal limits. There is no hydronephrosis or hydroureter. No urinary calculi are seen. STOMACH AND BOWEL: Mild colonic diverticulosis. No evidence of bowel obstruction. No evidence suggesting enteritis or colitis. APPENDIX: No evidence of acute appendicitis on CT e xamination. PERITONEUM: No free fluid. No free air. LYMPH NODES: No lymphadenopathy is evident. REPRODUCTIVE: Unremarkable as visualized. VASCULATURE: No evidence of abdominal aortic aneurysm. IVC filter is in place. BONES: No aggressive appearing osseous lesion. No acute osseous pathology evident. IMPRESSION: Cholecystectomy. Slight colonic diverticulosis. No acute intra-abdominal or pelvic abnormality. Medical Decision Making Medical Decision Making: Impression: Chest pain Plan: --CT Abd/Pel --Labs --IV Fluids --Urinalysis Labs improved. Discharged home, instructed to f/u with clinic, return to ED for worsening pain, fever, vomiting, dyspnea, or any other problem. Disposition - Disposition Disposition: HOME/ ROUTINE Disposition Time: 19:33 Condition: STABLE Instructions: Diabetes Type 2 (DC) Forms: [employer] ([place]) - Clinical Impression Clinical Impression: Hyperglycemia - Scribe Statement The provider has reviewed the documentation as recorded by the Scribe Martha Jerez Provider Attestation: All medical record entries made by the Alexanderibe were at my direction and personally dictated by me. I have reviewed the chart and agree that the record accurately reflects my personal performance of the history, physical exam, medical decision making, and the department course for this patient. I have also personally directed, reviewed, and agree with the discharge instructions and disposition.
[2018-07-08 17:37] LABS: BASO % 0.8 % (0.0-2.0); EOS # 0.1 K/uL (0.0-0.7); EOS % 1.6 % (0.0-4.0); HEMOGLOBIN 11.8 g/dL (11.0-16.0); LYMPH # 2.3 K/uL (1.0-4.3); MEAN CELL VOLUME 93.8 fL (81.0-99.0); MEAN CORPUSCULAR HGB CONC 34.1 g/dL (33.0-37.0); MONO # 0.5 K/uL (0.0-0.8); MONO % 9.6 % (0.0-10.0); NEUT # 1.9 K/uL (1.8-7.0); NRBC % 0.1 % (0.0-2.0); RBC 3.7 Mil/uL (3.80-5.20); RED CELL DISTRIBUTION WIDTH 16.2 % (11.5-14.5); WHITE BLOOD COUNT 4.8 K/uL (4.8-10.8)
[2018-07-08] MEDS ORDERED: Sodium Chloride 0.9% 1,000 ML ONE (17:37)
[2018-07-08 17:56] LABS: SQUAMOUS EPITHIAL < 1 /hpf (0-5); URINE BACTERIA RARE (<OCC); URINE BILIRUBIN NEGATIVE (NEGATIVE); URINE BLOOD NEGATIVE (NEGATIVE); URINE CLARITY Clear (Clear); URINE COLOR Yellow (YELLOW); URINE GLUCOSE (UA) 3+ mg/dL (Normal); URINE LEUKOCYTE ESTERASE NEG Leu/uL (Negative); URINE PROTEIN NEGATIVE (NEGATIVE)
[2018-07-08 18:01] LABS: CK-MB 1.12 ng/mL (0.0-3.38)
[2018-07-08 18:03] LABS: ALB/GLOB RATIO 0.9 (1.0-2.1); ALBUMIN 3.2 g/dL (3.5-5.0); ALT/SGPT 67 U/L (9-52); AST/SGOT 84 U/L (14-36); BLOOD UREA NITROGEN 4 mg/dL (7-17); CALCIUM 8.8 mg/dl (8.6-10.4); GFR NON-AFRICAN AMERICAN > 60; LIPASE 219 U/L (23-300)
[2018-07-08] MEDS ORDERED: (Novolin R) Insulin Human Regular 100 units/ml vial SC ONE (18:44)
[2018-07-08] MEDS ORDERED: Iodixanol 320 MG/ML 100 ML BOTTLE IV ONE (18:44)
[2018-07-08] MEDS ORDERED: (Novolin R) Insulin Human Regular 100 units/ml vial ONE (19:01)
[2018-07-08] MEDS ORDERED: Potassium Chloride 20 mEq 100 ML ONE (19:01)
[2018-07-08 21:21] VITALS: BP 130/80; PULSE 80; RESP 14; O2SAT 97
--- NOTE | 2018-07-09 09:31 | CT ---
Date of service: 07/08/2018 PROCEDURE: CT Abdomen and Pelvis with intravenous contrast HISTORY: Abdominal pain. COMPARISON: None. TECHNIQUE: Multiple contiguous axial images were performed through the abdomen and pelvis with the use of intravenous contrast. Subsequently, sagittal and coronal reformatted images were obtained. Radiation dose: Total exam DLP = six hundred sixty mGy-cm. This CT exam was performed using one or more of the following dose reduction techniques: Automated exposure control, adjustment of the mA and/or kV according to patient size, and/or use of iterative reconstruction technique. FINDINGS: LOWER THORAX: Diffuse scattered atelectasis at the lung bases. Focal nodular consolidation within the right lower lobe measuring 1.5 centimeters. Coronary calcifications. LIVER: Mild fatty infiltration of the liver. GALLBLADDER AND BILE DUCTS: Prior cholecystectomy. PANCREAS: Unremarkable. No gross lesion or ductal dilatation. SPLEEN: Unremarkable. ADRENALS: Unremarkable. No mass. KIDNEYS AND URETERS: Unremarkable. No hydronephrosis. No solid mass. VASCULATURE: IVC filter in place. Atherosclerotic calcification and mural plaque within the visualized aorta and branch vessels. BOWEL: Unremarkable. No obstruction. No gross mural thickening. Colonic diverticulosis. APPENDIX: Unremarkable. Normal appendix. PERITONEUM: Unremarkable. No free fluid. No free air. LYMPH NODES: Unremarkable. No enlarged lymph nodes. BLADDER: Unremarkable. REPRODUCTIVE: Unremarkable. BONES: Degenerative changes in the spine with multiple chronic right-sided rib fracture deformities. OTHER FINDINGS: None. IMPRESSION: Negative acute. Additional findings as above. These findings were preliminarily reported at 7:32 p.m. on 07/08/[address] Pam Lin from [employer].
== END 2018-07-08 21:21 | disposition home or self-care (01) ==
LOC: C.ER 16:27
DX: E11.65 Type 2 diabetes mellitus with hyperglycemia (principal)
CPT/HCPCS: 74177; 80053; 81001; 82009; 82550; 82553; 82948; 83690; 84484; 85025; 87086; 99285; J3480; J7030; Q9967

== ENCOUNTER 2018-07-10 12:43 | Emergency (ER) | payer MEDICARE, OTHER ==
[2018-07-10 12:43] VITALS: BMI 28.3
[2018-07-10 12:59] VITALS: RESP 16
[2018-07-10] MEDS ORDERED: Sodium Chloride 0.9% 1,000 ML IV ONE ×2 (13:07→14:33)
[2018-07-10] MEDS ORDERED: Sodium Chloride 0.9% 1,000 ML ONE (13:19)
[2018-07-10 13:32] LABS: SQUAMOUS EPITHIAL 4 /hpf (0-5); URINE BACTERIA RARE (<OCC); URINE BILIRUBIN NEGATIVE (NEGATIVE); URINE BLOOD NEGATIVE (NEGATIVE); URINE CLARITY Clear (Clear); URINE COLOR Straw (YELLOW); URINE GLUCOSE (UA) 3+ mg/dL (Normal); URINE LEUKOCYTE ESTERASE NEG Leu/uL (Negative); URINE PROTEIN NEGATIVE (NEGATIVE); URINE UROBILINOGEN NORMAL mg/dL (0.2-1.0)
[2018-07-10 13:45] LABS: BASO # 0.1 K/uL (0.0-0.2); BASO % 1.3 % (0.0-2.0); EOS # 0.1 K/uL (0.0-0.7); EOS % 1.4 % (0.0-4.0); HEMOGLOBIN 11.7 g/dL (11.0-16.0); LYMPH # 2.1 K/uL (1.0-4.3); MEAN CELL VOLUME 92.7 fL (81.0-99.0); MEAN CORPUSCULAR HEMOGLOBIN 31.1 pg (27.0-31.0); MEAN CORPUSCULAR HGB CONC 33.6 g/dL (33.0-37.0); MONO # 0.4 K/uL (0.0-0.8); MONO % 8.5 % (0.0-10.0); NEUT # 2.6 K/uL (1.8-7.0); NEUT % 48.8 % (50.0-75.0); RBC 3.75 Mil/uL (3.80-5.20); RED CELL DISTRIBUTION WIDTH 15.7 % (11.5-14.5); WHITE BLOOD COUNT 5.3 K/uL (4.8-10.8)
--- NOTE | 2018-07-10 13:46 | C.PDOC ---
History Of Present Illness 68 year old female, whose PMHx includes Diabetes and Hypertension, presents to the ED for evaluation of abdominal pain and episodes of vomiting. Patient states she developed abdominal pain last night and had around three episodes of vomiting (non-bloody/non-bilious) this morning. Patient also states she feels lightheaded, weak, excessively thirsty and has a burning sensation in her mouth. Patient reports poor appetite and chills, but denies fever. Patient reports she feels like her sugar may be high. She no longer follows up regularly with a doctor due to insurance issue. Patient states she ran out of her Metformin. She denies diarrhea, urinary frequency, black/bloody stools. Past surgical history: none Family history: hypertension Social history: denies smoking, drinking or other drug use PMD: None Time Seen by Provider: 07/10/18 13:00 Chief Complaint (Nursing): GI Problem History Per: Patient History/Exam Limitations: no limitations Onset/Duration Of Symptoms: Hrs Current Symptoms Are (Timing): Still Present Location Of Pain/Discomfort: Diffuse Radiation Of Pain To:: None Quality Of Discomfort: "Pain" Associated Symptoms: Chills, Nausea, Vomiting. denies: Fever, Diarrhea Additional History Per: Patient Past Medical History Reviewed: Historical Data, Nursing Documentation, Vital Signs Vital Signs: Last Vital Signs Temp 98.3 F 07/10/18 12:54 Pulse 108 H 07/10/18 12:54 Resp 16 07/10/18 12:54 BP 121/82 07/10/18 12:54 Pulse Ox 97 07/10/18 12:54 - Medical History PMH: Anemia, Anxiety, Arthritis, Asthma, Bipolar Disorder, Bronchitis, CAD, COPD, Depression, Diabetes, Gastritis, GERD, HTN, Hypercholesterolemia, Hypothyroidism, Osteoporosis, Peripheral Edema, Pneumonia, Pulmonary Embolism Denies: Hepatitis, HIV, Chronic Kidney Disease, Seizures, Sexually Transmitted Disease Surgical History: CABG, Cholecystectomy, Coronary Stent - [facility] Procedures ALCOHOL DETOXIFICATION (03/15/15) EXCISION OF STOMACH, ENDO, DIAGN (05/29/18) FLUOROSCOPY OF MULT COR ART USING L OSM CONTRAST (03/10/18) GROUP PSYCHOTHERAPY (02/03/18) INDIV PSYCHOTHERAPY FOR SUBSTANCE ABUSE, COGNITIV BEHAVIORAL (02/03/18) INDIVID PSYCHOTHERAP NEC (04/14/13) INDIVIDUAL PSYCHOTHERAPY, COGNITIVE-BEHAVIORAL (02/03/18) INTRODUCTION OF ANTI-INFLAM INTO RESP TRACT, VIA OPENING (01/25/17) INTRODUCTION OF SERUM/TOX/VACCINE INTO MUSCLE, PERC APPROACH (09/02/17) MEASURE OF CARDIAC SAMPL & PRESSURE, L HEART, PERC APPROACH (03/10/18) OTHER GROUP THERAPY (04/14/13) PHYSICAL THERAPY NEC (06/12/14) Family History: States: Unknown Family Hx - Social History Hx Tobacco Use: Yes Hx Alcohol Use: Yes (No longer drinks alcohol) Hx Substance Use: No - Immunization History Hx Tetanus Toxoid Vaccination: No Hx Influenza Vaccination: No Hx Pneumococcal Vaccination: No Review Of Systems Constitutional: Positive for: Chills, Weakness, Other (poor appetite ). Negative for: Fever Gastrointestinal: Positive for: Nausea, Vomiting, Abdominal Pain. Negative for: Diarrhea, Hematochezia, Hematemesis Genitourinary: Negative for: Frequency Neurological: Positive for: Other (lightheaded ) Physical Exam - Physical Exam Appears: Non-toxic, No Acute Distress, Other (tired ) Skin: Normal Color, Warm, Dry Head: Atraumatic, Normacephalic Eye(s): bilateral: Normal Inspection Oral Mucosa: Dry Neck: Normal ROM, Trachea Midline Lymphatic: No Adenopathy Cardiovascular: Rhythm Regular, No Murmur Respiratory: Normal Breath Sounds, No Wheezing Gastrointestinal/Abdominal: Soft, Tenderness (diffuse ), No Mass, No Guarding, No Rebound, No Other (Lobo's sign ) Back: Normal Inspection, No Decreased ROM Extremity: Normal ROM, Other (doughy edema to bilateral lower extremiries. no pitting edema ) Neurological/Psych: Oriented x3, Normal Motor ED Course And Treatment - Laboratory Results Result Diagrams: 07/10/18 13:37 07/10/18 13:37 ECG: Interpreted By Me, Viewed By Me ECG Rhythm: Sinus Tachycardia, L BBB ECG Interpretation: No Changes From Prior (previous EKG from 07/08) Interpretation Of ECG: Sinus Tachycardia at rate 104bpm. Left bundle branch block. Similar to previous EKG from 07/08. Rate From EC O2 Sat by Pulse Oximetry: 97 (on RA) Pulse Ox Interpretation: Normal Medical Decision Making Medical Decision Making: Impression: hyperglycemia with GI symptoms Differential diagnoses include but are not limited to: DKA vs dehydration vs electrolyte imbalance vs gastroenteritis vs gastritis Prior records reviewed: Patient was evaluated in the ED on 07/08 for abdominal pain and underwent a CT scan which showed no acute findings. She did not have complaints of vomiting at the time. Progress: Bloodwork, urinalysis, EKG ordered and reviewed. Pepcid IVP, Magnesium Sulfate IV, Zofran IV, Potassium Chloride IV, and IV Fluids given. Labs demonstrate hyperglycemia and mild hypomagnesemia. No ketones. Normal anion gap. No acidosis. 430p No vomiting in ER. Stable for dc Disposition Counseled Patient/Family Regarding: Studies Performed, Diagnosis - Disposition Referrals: [facility] [Outside] - 07/11/18 Disposition: HOME/ ROUTINE Disposition Time: 16:33 Condition: IMPROVED Prescriptions: metFORMIN [glucOPHAGE] 500 mg PO BID #60 tab Ondansetron ODT [Zofran ODT] 4 mg PO Q6 PRN #20 odt PRN Reason: Nausea/Vomiting Instructions: Hyperglycemia, Adult (DC), Nausea and Vomiting, Adult (DC) Print Language: GREENLANDIC - Clinical Impression Clinical Impression: Hyperglycemia, Vomiting - Scribe Statement The provider has reviewed the documentation as recorded by the Scribe (Myrna Can) Provider Attestation: All medical record entries made by the Scribe were at my direction and personally dictated by me. I have reviewed the chart and agree that the record accurately reflects my personal performance of the history, physical exam, medical decision making, and the department course for this patient. I have also personally directed, reviewed, and agree with the discharge instructions and disposition.
[2018-07-10 13:52] LABS: INR 1.2; PROTHROMBIN TIME 13.4 SECONDS (9.7-12.2)
[2018-07-10 13:58] LABS: ALB/GLOB RATIO 0.9 (1.0-2.1); ALBUMIN 3.2 g/dL (3.5-5.0); ALT/SGPT 61 U/L (9-52); AST/SGOT 77 U/L (14-36); BLOOD UREA NITROGEN 3 mg/dL (7-17); GFR NON-AFRICAN AMERICAN > 60; LIPASE 137 U/L (23-300)
[2018-07-10 14:00] LABS: VENOUS BLOOD GAS BASE EXCESS -5.4 mmol/L (0.0-2.0); VENOUS BLOOD GAS PCO2 25 mmHg (40-60); VENOUS BLOOD GAS PO2 80 mm/Hg (30-55); VENOUS BLOOD PH 7.44 (7.32-7.43)
[2018-07-10] MEDS ORDERED: Magnesium Sulfate 1 gm in D5W 1 GM/100 ML BAG IVPB STA (14:07)
[2018-07-10 14:08] LABS: B-TYPE NATRIURETIC PEPTIDE 888 pg/mL (0-900)
[2018-07-10] MEDS ORDERED: Potassium Chloride 20 mEq ER Tab PO STA (14:13)
[2018-07-10] MEDS ORDERED: Magnesium Sulfate 1 gm in D5W 1 GM/100 ML BAG IVPB ONE (14:22)
[2018-07-10] MEDS ORDERED: (Novolin R) Insulin Human Regular 100 units/ml vial SC ONE (15:40)
[2018-07-10] MEDS ORDERED: (Novolin R) Insulin Human Regular 100 units/ml vial ONE (16:26)
[2018-07-10 16:43] VITALS: BP 147/79; PULSE 88; TEMP 98.5; O2SAT 96
--- NOTE | 2018-07-14 06:40 | CARD ---
APPROVED REPORT Date of service: 07/10/2018 EKG Measurement Heart [id number] <Conclusion> Sinus tachycardia Possible Left atrial enlargement Left bundle branch block Abnormal ECG
== END 2018-07-10 16:53 | disposition home or self-care (01) ==
LOC: C.ER 12:43
DX: E11.65 Type 2 diabetes mellitus with hyperglycemia (principal); R11.10 Vomiting, unspecified; Z79.84 Long term (current) use of oral hypoglycemic drugs
CPT/HCPCS: 80053; 81001; 82803; 82948; 83690; 83735; 83880; 84484; 85025; 85610; 85730; 93005; 96361; 96365; 96375; 99284; J2405; J3475; J7030

== ENCOUNTER 2018-08-02 19:27 | Emergency (ER) | payer MEDICARE, OTHER ==
[2018-08-02 19:27] VITALS: BMI 28.3
[2018-08-02] MEDS ORDERED: (Novolin R) Insulin Human Regular 100 units/ml vial IV STA (20:17)
[2018-08-02] MEDS ORDERED: (Novolin R) Insulin Human Regular 100 units/ml vial ONE (20:25)
[2018-08-02 20:29] LABS: BASO % 0.9 % (0.0-2.0); EOS # 0.2 K/uL (0.0-0.7); EOS % 3.1 % (0.0-4.0); HEMOGLOBIN 12.4 g/dL (11.0-16.0); LYMPH # 2.6 K/uL (1.0-4.3); LYMPH % 45.2 % (20.0-40.0); MEAN CELL VOLUME 92.7 fL (81.0-99.0); MEAN CORPUSCULAR HEMOGLOBIN 30.4 pg (27.0-31.0); MEAN CORPUSCULAR HGB CONC 32.8 g/dL (33.0-37.0); MEAN PLATELET VOLUME 9.3 fL (7.2-11.7); MONO # 0.4 K/uL (0.0-0.8); MONO % 7.7 % (0.0-10.0); NEUT # 2.4 K/uL (1.8-7.0); NEUT % 43.1 % (50.0-75.0); NRBC % 0.1 % (0.0-2.0); RBC 4.09 Mil/uL (3.80-5.20); RED CELL DISTRIBUTION WIDTH 15.6 % (11.5-14.5); WHITE BLOOD COUNT 5.7 K/uL (4.8-10.8)
[2018-08-02 20:49] LABS: ALB/GLOB RATIO 0.8 (1.0-2.1); ALBUMIN 3.1 g/dL (3.5-5.0); ALT/SGPT 38 U/L (9-52); AST/SGOT 95 U/L (14-36); BLOOD UREA NITROGEN 3 mg/dL (7-17); CALCIUM 8.6 mg/dl (8.6-10.4); GFR NON-AFRICAN AMERICAN > 60
--- NOTE | 2018-08-02 21:21 | C.PDOC ---
History Of Present Illness 68 y/o female presents to the ED via EMS, called by daughter due to ETOH intoxication at home. Patient has history of frequent evals for alcohol abuse, most recently on 07/27. Patient has PMHx of diabetes, and is noncompliant with medication regimen. Time Seen by Provider: 08/02/18 19:56 Chief Complaint (Nursing): Substance Abuse History Per: Patient History/Exam Limitations: intoxication Onset/Duration Of Symptoms: Hrs Current Symptoms Are (Timing): Still Present Modifying Factor(s): Alcohol Associated Symptoms: denies: Suicidal Thoughts, Suicidal Plan Additional History Per: EMS Past Medical History Reviewed: Historical Data, Nursing Documentation, Vital Signs Vital Signs: Last Vital Signs Temp 98.3 F 08/02/18 19:34 Pulse 90 08/02/18 19:34 Resp 20 08/02/18 19:34 BP 121/77 08/02/18 19:34 Pulse Ox 98 08/02/18 19:34 - Medical History PMH: Anemia, Anxiety, Arthritis, Asthma, Bipolar Disorder, Bronchitis, CAD, COPD, Depression, Gastritis, GERD, HTN, Hypercholesterolemia, Hypothyroidism, Osteoporosis, Peripheral Edema, Pneumonia, Pulmonary Embolism Denies: Diabetes, Hepatitis, HIV, Chronic Kidney Disease, Seizures, Sexually Transmitted Disease Surgical History: CABG, Cholecystectomy, Coronary Stent - [facility] Procedures ALCOHOL DETOXIFICATION (03/15/15) EXCISION OF STOMACH, ENDO, DIAGN (05/29/18) FLUOROSCOPY OF MULT COR ART USING L OSM CONTRAST (03/10/18) GROUP PSYCHOTHERAPY (02/03/18) INDIV PSYCHOTHERAPY FOR SUBSTANCE ABUSE, COGNITIV BEHAVIORAL (02/03/18) INDIVID PSYCHOTHERAP NEC (04/14/13) INDIVIDUAL PSYCHOTHERAPY, COGNITIVE-BEHAVIORAL (02/03/18) INTRODUCTION OF ANTI-INFLAM INTO RESP TRACT, VIA OPENING (01/25/17) INTRODUCTION OF SERUM/TOX/VACCINE INTO MUSCLE, PERC APPROACH (09/02/17) MEASURE OF CARDIAC SAMPL & PRESSURE, L HEART, PERC APPROACH (03/10/18) OTHER GROUP THERAPY (04/14/13) PHYSICAL THERAPY NEC (06/12/14) Family History: States: Unknown Family Hx - Social History Hx Tobacco Use: Yes Hx Alcohol Use: Yes (drinks alcohol) Hx Substance Use: No - Immunization History Hx Tetanus Toxoid Vaccination: No Hx Influenza Vaccination: No Hx Pneumococcal Vaccination: No Review Of Systems Constitutional: Negative for: Fever, Chills Respiratory: Negative for: Shortness of Breath Gastrointestinal: Negative for: Vomiting, Abdominal Pain Psych: Positive for: Other (ETOH intoxication). Negative for: Suicidal ideation Physical Exam - Physical Exam Appears: Non-toxic, No Acute Distress, Other (Obese female) Skin: Warm, Dry Head: Atraumatic, Normacephalic Eye(s): bilateral: Normal Inspection, PERRL, EOMI Oral Mucosa: Moist Neck: Normal ROM Chest: Symmetrical Cardiovascular: Rhythm Regular, No Murmur Respiratory: Normal Breath Sounds, No Accessory Muscle Use Gastrointestinal/Abdominal: Bowel Sounds, Soft, No Tenderness Extremity: Bilateral: Atraumatic, Normal Color And Temperature Pulses: Left Dorsalis Pedis: Normal, Right Dorsalis Pedis: Normal Neurological/Psych: Normal Speech, Other (Alert, awake, responding to questions, +Alcohol on breath) ED Course And Treatment - Laboratory Results Result Diagrams: 08/02/18 20:26 08/02/18 20:26 Lab Interpretation: Abnormal (+ elevated glu, A1C 11.4H, ETOH 199H) O2 Sat by Pulse Oximetry: 98 (RA) Pulse Ox Interpretation: Normal Reevaluation Time: 23:46 Reassessment Condition: Improved Medical Decision Making Medical Decision Making: Impression: ETOH intoxication, uncontrolled DM, Finger stick > 500 Plan: * Blood work * Novolin 10 unit IV Disposition Doctor Will See Patient In The: Office Counseled Patient/Family Regarding: Studies Performed, Diagnosis - Disposition Disposition: HOME/ ROUTINE Disposition Time: 23:46 Condition: GOOD Forms: [facility] ([place]) - Clinical Impression Clinical Impression: Alcohol abuse, Hyperglycemia - Scribe Statement The provider has reviewed the documentation as recorded by the Alan Medeiros Provider Attestation: All medical record entries made by the Alan were at my direction and personally dictated by me. I have reviewed the chart and agree that the record accurately reflects my personal performance of the history, physical exam, medi randall decision making, and the department course for this patient. I have also personally directed, reviewed, and agree with the discharge instructions and disposition.
[2018-08-03 00:59] VITALS: BP 142/88; PULSE 80; RESP 18; TEMP 98; O2SAT 100
== END 2018-08-03 01:01 | disposition home or self-care (01) ==
LOC: C.ER 19:27
DX: F10.129 Alcohol abuse with intoxication, unspecified (principal); E11.65 Type 2 diabetes mellitus with hyperglycemia; E03.9 Hypothyroidism, unspecified; E78.00 Pure hypercholesterolemia, unspecified; I10 Essential (primary) hypertension; I25.10 Atherosclerotic heart disease of native coronary artery without angina pectoris; J44.9 Chronic obstructive pulmonary disease, unspecified; Z72.0 Tobacco use
CPT/HCPCS: 80053; 82948; 83036; 85025; 99285; G0480

== ENCOUNTER 2018-08-21 19:08 | Emergency (ER) | payer MEDICARE, OTHER ==
[2018-08-21 19:08] VITALS: BMI 28.3
[2018-08-21 19:23] VITALS: O2SAT 95
--- NOTE | 2018-08-21 19:45 | C.PDOC ---
History Of Present Illness 68 year old female presents to the ER via EMS after her daughter called 911 for drinking tonight. Patient states she had an argument with her daughter and afterwards drank 4 beers. Denies suicidal ideation, homicidal ideation, depression or any other complaints at this time. She notes she feels safe at home. Patient states she feels fine and requests to be discharged home. Time Seen by Provider: 08/21/18 19:44 Chief Complaint (Nursing): Psychiatric Evaluation History Per: Patient History/Exam Limitations: no limitations Onset/Duration Of Symptoms: Hrs Current Symptoms Are (Timing): Still Present Suicide/Self Injury Attempted (Context): None Modifying Factor(s): Alcohol Associated Symptoms: denies: Suicidal Thoughts, Other (Homicidal ideation) Involuntary Hold By: None Recent travel outside of the [place]: No Past Medical History Reviewed: Historical Data, Nursing Documentation, Vital Signs Vital Signs: Last Vital Signs Temp 98 F 08/21/18 19:17 Pulse 93 H 08/21/18 19:17 Resp 20 08/21/18 19:17 BP 125/69 08/21/18 19:17 Pulse Ox 95 08/21/18 19:17 - Medical History PMH: Anemia, Anxiety, Arthritis, Asthma, Bipolar Disorder, Bronchitis, CAD, COPD, Depression, Gastritis, GERD, HTN, Hypercholesterolemia, Hypothyroidism, Osteoporosis, Peripheral Edema, Pneumonia, Pulmonary Embolism Denies: Diabetes, Hepatitis, HIV, Chronic Kidney Disease, Seizures, Sexually Transmitted Disease Surgical History: CABG, Cholecystectomy, Coronary Stent - [facility] Procedures ALCOHOL DETOXIFICATION (03/15/15) EXCISION OF STOMACH, ENDO, DIAGN (05/29/18) FLUOROSCOPY OF MULT COR ART USING L OSM CONTRAST (03/10/18) GROUP PSYCHOTHERAPY (02/03/18) INDIV PSYCHOTHERAPY FOR SUBSTANCE ABUSE, COGNITIV BEHAVIORAL (02/03/18) INDIVID PSYCHOTHERAP NEC (04/14/13) INDIVIDUAL PSYCHOTHERAPY, COGNITIVE-BEHAVIORAL (02/03/18) INTRODUCTION OF ANTI-INFLAM INTO RESP TRACT, VIA OPENING (01/25/17) INTRODUCTION OF SERUM/TOX/VACCINE INTO MUSCLE, PERC APPROACH (09/02/17) MEASURE OF CARDIAC SAMPL & PRESSURE, L HEART, PERC APPROACH (03/10/18) OTHER GROUP THERAPY (04/14/13) PHYSICAL THERAPY NEC (06/12/14) Family History: States: Unknown Family Hx - Social History Hx Tobacco Use: Yes Hx Alcohol Use: Yes (drinks alcohol) Hx Substance Use: No - Immunization History Hx Tetanus Toxoid Vaccination: No Hx Influenza Vaccination: No Hx Pneumococcal Vaccination: No Review Of Systems Constitutional: Negative for: Fever, Chills, Sweats, Weakness Eyes: Negative for: Pain, Vision Change ENT: Negative for: Ear Pain, Ear Discharge, Nose Pain, Nose Congestion, Mouth Pain Cardiovascular: Negative for: Chest Pain, Palpitations, Edema, Light Headedness Respiratory: Negative for: Cough, Shortness of Breath, Hemoptysis, SOB with Excertion, Pleuritic Pain Gastrointestinal: Negative for: Nausea, Vomiting, Abdominal Pain, Diarrhea, Constipation, Melena, Hematochezia, Hematemesis, Rectal Pain Genitourinary: Negative for: Dysuria, Hematuria Musculoskeletal: Negative for: Neck Pain, Shoulder Pain, Arm Pain, Back Pain, Hand Pain, Leg Pain Skin: Negative for: Rash, Lesions Neurological: Negative for: Weakness, Numbness Psych: Negative for: Anxiety, Depression, Suicidal ideation, Withdrawal, Other (Homicidal ideation) Physical Exam - Physical Exam Appears: Well, Non-toxic, Other (No acute intoxication, Normal affect, No sign of injury) Skin: Normal Color, Warm, Dry Head: Atraumatic, Normacephalic Eye(s): bilateral: Normal Inspection, PERRL, EOMI Ear(s): Bilateral: Normal Nose: Normal Oral Mucosa: Moist Lips: Normal Appearing Gingiva: Normal Appearing Throat: Normal, No Erythema, No Exudate Neck: Normal, Normal ROM, No Midline Cervical Tenderness, No Paracervical Tenderness, No Step Off Deformity, Supple, Other (no meningeal signs) Chest: Symmetrical, No Tenderness Cardiovascular: Rhythm Regular Respiratory: Normal Breath Sounds, No Rales, No Rhonchi, No Wheezing Gastrointestinal/Abdominal: Soft, No Tenderness Back: Normal Inspection, No CVA Tenderness, No Paraspinal Tenderness Extremity: Normal ROM (x4) Extremity: Bilateral: Atraumatic, Hips Non-Tender, No Pedal Edema, Normal ROM, Pelvis-Stable Neurological/Psych: Oriented x3, Normal Speech, Normal Cognition, Normal Cranial Nerves, No Cerebellar Signs, Normal Motor, Normal Sensation Gait: Steady Extremity: Right: No Drift, Left: No Drift, Upper: No Drift, Lower: No Drift ED Course And Treatment O2 Sat by Pulse Oximetry: 95 (Room air) Pulse Ox Interpretation: Normal Medical Decision Making Medical Decision Makin yr old female w/ hx of etoh use, anxiety presents BIBA after getting into arguement with daughter. Pt notes drinking 3 beers but not falling. On exam, walking steady, clear speech, no signs of trauma. No meningeal signs. No SI / HI or depression. Patient's daughter called twice with no answer. Reassessed- pt in NAD with repeat unremarkable neuro exam, pt reiteriates no SI or HI or depression. stable gait w/ out signs of withdrawal. clinically sober, clear for d/c home. Endorsed to pt to decreased intake of ETOH. Disposition - Disposition Referrals: [facility] [Outside] [facility] [Outside] Disposition: HOME/ ROUTINE Disposition Time: 21:00 Condition: GOOD Additional Instructions: [employer], thank you for letting us take care of you today. Your provider was Jerald Malik and you were treated for EVAL. The emergency medical care you received today was directed at your acute symptoms. If you were prescribed any medication, please fill it and take as directed. It may take several days for your symptoms to resolve. Return to the Emergency Department if your symptoms worsen, do not improve, or if you have any other problems. Please contact your doctor or call one of the physicians/clinics you have been referred to that are listed on the Patient Visit Information form that is included in your discharge packet. Bring any paperwork you were given at discharge with you along with any medications you are taking to your follow up visit. Our treatment cannot replace ongoing medical care by a primary care provider outside of the emergency department. Thank you for allowing the [facility] team to be part of your care today. If you had an X-Ray or CT scan: A Radiologist will review the ED reading if any change in treatment is needed we will contact you. If you had a blood, urine, or wound culture: It will take several days for the results, if any change in treatment is needed we will contact you. If you had an STI test: It will take 48 hours for the results. Please call after 1 week if you have not heard back. Instructions: Alcohol Use - When Is Drinking a Problem?, Alcohol Abuse and Alcoholism (DC) Forms: [employer] (Gibraltarian) Print Language: CHINESE - Clinical Impression Clinical Impression: Alcohol use - Scribe Statement The provider has reviewed the documentation as recorded by the Scribmegan Pool All medical record entries made by the Alexanderibe were at my direction and personally dictated by me. I have reviewed the chart and agree that the record accurately reflects my personal performance of the history, physical exam, medical decision making, and the department course for this patient. I have also personally directed, reviewed, and agree with the discharge instructions and disposition.
[2018-08-21 21:07] VITALS: BP 122/62; PULSE 88; RESP 16; TEMP 98.7
== END 2018-08-21 20:35 | disposition home or self-care (01) ==
LOC: C.ER 19:08
DX: F10.10 Alcohol abuse, uncomplicated (principal); Y90.9 Presence of alcohol in blood, level not specified

== ENCOUNTER 2018-09-24 22:49 | Emergency (ER) | payer MEDICARE, OTHER ==
[2018-09-24 22:49] VITALS: BMI 28.3
--- NOTE | 2018-09-24 23:15 | C.PDOC ---
History Of Present Illness 68 year old female with history of alcohol abuse presents to the ED BIBA for public intoxication. Patient has a history of many ED evaluations for the same. Denies any SI/HI. Time Seen by Provider: 09/24/18 22:59 Chief Complaint (Nursing): Substance Abuse History Per: Patient, EMS History/Exam Limitations: no limitations Onset/Duration Of Symptoms: Hrs Current Symptoms Are (Timing): Still Present Suicide/Self Injury Attempted (Context): None Modifying Factor(s): Alcohol Associated Symptoms: denies: Suicidal Thoughts, Suicidal Plan Additional History Per: Prior Records Past Medical History Reviewed: Historical Data, Nursing Documentation, Vital Signs Vital Signs: Last Vital Signs Temp 98.2 F 09/24/18 22:56 Pulse 104 H 09/24/18 22:56 Resp 18 09/24/18 22:56 BP 109/65 09/24/18 22:56 Pulse Ox 94 L 09/24/18 22:56 - Medical History PMH: Anemia, Anxiety, Arthritis, Asthma, Bipolar Disorder, Bronchitis, CAD, COPD, Depression, Gastritis, GERD, HTN, Hypercholesterolemia, Hypothyroidism, Osteoporosis, Peripheral Edema, Pneumonia, Pulmonary Embolism Denies: Diabetes, Hepatitis, HIV, Chronic Kidney Disease, Seizures, Sexually Transmitted Disease Surgical History: CABG, Cholecystectomy, Coronary Stent - [facility] Procedures ALCOHOL DETOXIFICATION (03/15/15) EXCISION OF STOMACH, ENDO, DIAGN (05/29/18) FLUOROSCOPY OF MULT COR ART USING L OSM CONTRAST (03/10/18) GROUP PSYCHOTHERAPY (02/03/18) INDIV PSYCHOTHERAPY FOR SUBSTANCE ABUSE, COGNITIV BEHAVIORAL (02/03/18) INDIVID PSYCHOTHERAP NEC (04/14/13) INDIVIDUAL PSYCHOTHERAPY, COGNITIVE-BEHAVIORAL (02/03/18) INTRODUCTION OF ANTI-INFLAM INTO RESP TRACT, VIA OPENING (01/25/17) INTRODUCTION OF SERUM/TOX/VACCINE INTO MUSCLE, PERC APPROACH (09/02/17) MEASURE OF CARDIAC SAMPL & PRESSURE, L HEART, PERC APPROACH (03/10/18) OTHER GROUP THERAPY (04/14/13) PHYSICAL THERAPY NEC (06/12/14) Family History: States: No Known Family Hx - Social History Hx Tobacco Use: Yes Hx Alcohol Use: Yes (drinks alcohol) Hx Substance Use: No - Immunization History Hx Tetanus Toxoid Vaccination: No Hx Influenza Vaccination: No Hx Pneumococcal Vaccination: No Review Of Systems Except As Marked, All Systems Reviewed And Found Negative. Gastrointestinal: Negative for: Vomiting, Abdominal Pain Physical Exam - Physical Exam Appears: Non-toxic, Other (obese female, intoxicated ) Skin: Warm, Dry, No Rash Head: Normacephalic Eye(s): bilateral: Normal Inspection Nose: Normal Oral Mucosa: Other (alcohol smell on breath ) Neck: Supple Chest: Symmetrical Cardiovascular: Rhythm Regular Respiratory: Normal Breath Sounds, No Rales, No Rhonchi, No Wheezing Gastrointestinal/Abdominal: Soft, No Tenderness Neurological/Psych: Oriented x3, Normal Speech Gait: Steady ED Course And Treatment - Laboratory Results Result Diagrams: 09/24/18 23:51 09/24/18 23:51 O2 Sat by Pulse Oximetry: 94 (RA) Pulse Ox Interpretation: Abnormal Progress Note: 0345: repeat FS 437. insulin 10 IV ordered. NS 1 l bolus ordered. 0530: clinically sober, glucose 357, pt wants d/c home. Medical Decision Making Medical Decision Making: Plan - POC glucose uncontrolled DM Ongoing Alcoholism Disposition Doctor Will See Patient In The: Office Counseled Patient/Family Regarding: Studies Performed, Diagnosis - Disposition Disposition: HOME/ ROUTINE Disposition Time: 05:39 Condition: GOOD Forms: [employer] (Polish) - Clinical Impression Clinical Impression: Alcohol abuse, Diabetes mellitus type 2 in obese - Scribe Statement The provider has reviewed the documentation as recorded by the Alexanderibmegan Michael All medical record entries made by the Alexanderibmegan were at my direction and personally dictated by me. I have reviewed the chart and agree that the record accurately reflects my personal performance of the history, physical exam, medical decision making, and the department course for this patient. I have also personally directed, reviewed, and agree with the discharge instructions and disposition.
[2018-09-24] MEDS ORDERED: (Novolin R) Insulin Human Regular 100 units/ml vial ONE (23:41)
[2018-09-24] MEDS ORDERED: Sodium Chloride 0.9% 1,000 ML IV ONE (23:46)
[2018-09-24] MEDS ORDERED: (Novolin R) Insulin Human Regular 100 units/ml vial IVP STA (23:46)
[2018-09-24 23:54] LABS: BASO # 0.1 K/uL (0.0-0.2); BASO % 0.9 % (0.0-2.0); EOS # 0.1 K/uL (0.0-0.7); EOS % 1.3 % (0.0-4.0); HEMOGLOBIN 12.9 g/dL (11.0-16.0); LYMPH # 2.7 K/uL (1.0-4.3); LYMPH % 36.6 % (20.0-40.0); MEAN CORPUSCULAR HEMOGLOBIN 31.5 pg (27.0-31.0); MEAN CORPUSCULAR HGB CONC 33.2 g/dL (33.0-37.0); MEAN PLATELET VOLUME 10.3 fL (7.2-11.7); MONO # 0.6 K/uL (0.0-0.8); MONO % 8.4 % (0.0-10.0); NEUT # 3.8 K/uL (1.8-7.0); NEUT % 52.8 % (50.0-75.0); RBC 4.09 Mil/uL (3.80-5.20); RED CELL DISTRIBUTION WIDTH 15.3 % (11.5-14.5); WHITE BLOOD COUNT 7.3 K/uL (4.8-10.8)
[2018-09-25 00:06] LABS: MEAN CELL VOLUME 94.8 fL (81.0-99.0)
[2018-09-25 00:11] LABS: ALB/GLOB RATIO 1.1 (1.0-2.1); ALT/SGPT 63 U/L (9-52); AST/SGOT 133 U/L (14-36); BLOOD UREA NITROGEN 4 mg/dL (7-17); CALCIUM 8.7 mg/dl (8.6-10.4); GFR NON-AFRICAN AMERICAN > 60
[2018-09-25] MEDS ORDERED: Sodium Chloride 0.9% 1,000 ML IV ONE ×2 (02:07→03:44)
[2018-09-25] MEDS ORDERED: Sodium Chloride 0.9% 1,000 ML ONE ×3 (02:08→03:48)
[2018-09-25] MEDS ORDERED: (Novolin R) Insulin Human Regular 100 units/ml vial IVP STA (03:44)
[2018-09-25] MEDS ORDERED: (Novolin R) Insulin Human Regular 100 units/ml vial ONE (03:48)
[2018-09-25 04:45] VITALS: RESP 22
[2018-09-25 05:31] VITALS: BP 103/68; PULSE 79; TEMP 98.7
[2018-09-25 05:40] VITALS: O2SAT 94
== END 2018-09-25 05:47 | disposition home or self-care (01) ==
LOC: C.ER 22:49
DX: F10.10 Alcohol abuse, uncomplicated (principal); E11.9 Type 2 diabetes mellitus without complications; E66.9 Obesity, unspecified; E03.9 Hypothyroidism, unspecified; E78.00 Pure hypercholesterolemia, unspecified; I10 Essential (primary) hypertension; I25.10 Atherosclerotic heart disease of native coronary artery without angina pectoris; F31.9 Bipolar disorder, unspecified; M81.0 Age-related osteoporosis without current pathological fracture; Z72.0 Tobacco use
CPT/HCPCS: 80053; 82948; 85025; 96361; 96374; 96376; 99285; J7030

== ENCOUNTER 2018-10-03 23:31 | Emergency (ER) | payer MEDICARE, OTHER ==
[2018-10-03 23:31] VITALS: BMI 28.3
[2018-10-04] MEDS ORDERED: Sodium Chloride 0.9% 1,000 ML IV ONE ×2 (00:02→01:29)
[2018-10-04] MEDS ORDERED: Iohexol 240 (50 ml) PO ONE (00:03)
--- NOTE | 2018-10-04 00:04 | C.PDOC ---
History Of Present Illness 68 year old female presents to the ER with a complaint of abdominal pain for the past 3-4 days. Patient states the pain is mostly right sided and associated with diarrhea. Patient has Hx of heavy ETOH intake. Denies fever or chills. Chief Complaint (Nursing): Abdominal Pain History Per: Patient History/Exam Limitations: no limitations Onset/Duration Of Symptoms: Days (3-4) Current Symptoms Are (Timing): Still Present Location Of Pain/Discomfort: Other (right sided) Quality Of Discomfort: Unable To Describe Associated Symptoms: Diarrhea. denies: Fever, Chills Exacerbating Factors: None Alleviating Factors: None Recent travel outside of the [place]: No Abnormal Vaginal Bleeding: No Past Medical History Reviewed: Historical Data, Nursing Documentation, Vital Signs Vital Signs: Last Vital Signs Temp 97.9 F 10/03/18 23:37 Pulse 97 H 10/03/18 23:37 Resp 18 10/03/18 23:37 BP 112/70 10/03/18 23:37 Pulse Ox 96 10/03/18 23:37 - Medical History PMH: Anemia, Anxiety, Arthritis, Asthma, Bipolar Disorder, Bronchitis, CAD, COPD, Depression, Gastritis, GERD, HTN, Hypercholesterolemia, Hypothyroidism, Osteoporosis, Peripheral Edema, Pneumonia, Pulmonary Embolism Denies: Diabetes, Hepatitis, HIV, Chronic Kidney Disease, Seizures, Sexually Transmitted Disease Surgical History: CABG, Cholecystectomy, Coronary Stent - [facility] Procedures ALCOHOL DETOXIFICATION (03/15/15) EXCISION OF STOMACH, ENDO, DIAGN (05/29/18) FLUOROSCOPY OF MULT COR ART USING L OSM CONTRAST (03/10/18) GROUP PSYCHOTHERAPY (02/03/18) INDIV PSYCHOTHERAPY FOR SUBSTANCE ABUSE, COGNITIV BEHAVIORAL (02/03/18) INDIVID PSYCHOTHERAP NEC (04/14/13) INDIVIDUAL PSYCHOTHERAPY, COGNITIVE-BEHAVIORAL (02/03/18) INTRODUCTION OF ANTI-INFLAM INTO RESP TRACT, VIA OPENING (01/25/17) INTRODUCTION OF SERUM/TOX/VACCINE INTO MUSCLE, PERC APPROACH (09/02/17) MEASURE OF CARDIAC SAMPL & PRESSURE, L HEART, PERC APPROACH (03/10/18) OTHER GROUP THERAPY (04/14/13) PHYSICAL THERAPY NEC (06/12/14) Family History: States: Unknown Family Hx - Social History Hx Tobacco Use: Yes Hx Alcohol Use: Yes Hx Substance Use: No - Immunization History Hx Tetanus Toxoid Vaccination: No Hx Influenza Vaccination: No Hx Pneumococcal Vaccination: No Review Of Systems Constitutional: Negative for: Fever, Chills Cardiovascular: Negative for: Chest Pain, Palpitations Respiratory: Negative for: Cough, Shortness of Breath Gastrointestinal: Positive for: Abdominal Pain, Diarrhea Neurological: Negative for: Weakness, Numbness Physical Exam - Physical Exam Appears: Non-toxic Skin: Normal Color, Warm, Dry Head: Atraumatic, Normacephalic Eye(s): bilateral: Normal Inspection Oral Mucosa: Moist Neck: Normal, Supple Chest: Symmetrical, No Tenderness Cardiovascular: Rhythm Regular Respiratory: Normal Breath Sounds, No Rales, No Rhonchi, No Wheezing Gastrointestinal/Abdominal: Soft, Tenderness (RUQ and right flank area), No Guarding, No Rebound Neurological/Psych: Oriented x3, Normal Speech ED Course And Treatment - Laboratory Results Result Diagrams: 10/04/18 01:42 10/04/18 00:34 O2 Sat by Pulse Oximetry: 96 (Room air) Pulse Ox Interpretation: Normal Progress Note: CT abd/pel, blood work, and urinalysis ordered. IV fluids administered. Disposition Counseled Patient/Family Regarding: Diagnosis - Disposition Referrals: [facility] [Outside] Disposition Time: 04:43 Condition: STABLE Prescriptions: Nitrofurantoin Macrocrystals [Macrobid] 1 cap PO BID #14 cap Instructions: Urinary Tract Infections in Adults, Type 1 Diabetes, Acute Abdomen (Belly Pain) Forms: [facility] (Swedish), Gen Discharge Inst Divehi Print Language: PASHTO - POA Present On Arrival: None - Clinical Impression Clinical Impression: UTI (urinary tract infection), Abdominal pain, Hyperglycemia due to type 1 diabetes mellitus - Scribe Statement The provider has reviewed the documentation as recorded by the Scribmegan Pool All medical record entries made by the Scribe were at my direction and personally dictated by me. I have reviewed the chart and agree that the record accurately reflects my personal performance of the history, physical exam, medical decision making, and the department course for this patient. I have also personally directed, reviewed, and agree with the discharge instructions and disposition.
[2018-10-04] MEDS ORDERED: Iohexol 240 (50 ml) ONE (00:33)
[2018-10-04] MEDS ORDERED: Sodium Chloride 0.9% 1,000 ML ONE ×2 (00:33→01:49)
[2018-10-04 01:04] LABS: SQUAMOUS EPITHIAL < 1 /hpf (0-5); URINE BACTERIA RARE (<OCC); URINE BILIRUBIN NEGATIVE (NEGATIVE); URINE BLOOD NEGATIVE (NEGATIVE); URINE CLARITY Clear (Clear); URINE COLOR Straw (YELLOW); URINE GLUCOSE (UA) 3+ mg/dL (Normal); URINE LEUKOCYTE ESTERASE TRACE Leu/uL (Negative); URINE PROTEIN NEGATIVE (NEGATIVE); URINE UROBILINOGEN NORMAL mg/dL (0.2-1.0)
[2018-10-04 01:12] LABS: ALB/GLOB RATIO 0.9 (1.0-2.1); ALBUMIN 4.1 g/dL (3.5-5.0); ALT/SGPT 65 U/L (9-52); AST/SGOT 160 U/L (14-36); BLOOD UREA NITROGEN 5 mg/dL (7-17); CALCIUM 9.4 mg/dl (8.6-10.4); GFR NON-AFRICAN AMERICAN > 60; LIPASE 253 U/L (23-300)
[2018-10-04] MEDS ORDERED: (Novolin R) Insulin Human Regular 100 units/ml vial IVP ONE (01:29)
[2018-10-04 01:44] LABS: BASO % 0.6 % (0.0-2.0); EOS # 0.1 K/uL (0.0-0.7); EOS % 1.5 % (0.0-4.0); HEMOGLOBIN 13.5 g/dL (11.0-16.0); LYMPH # 2.4 K/uL (1.0-4.3); LYMPH % 38.6 % (20.0-40.0); MEAN CELL VOLUME 93.5 fL (81.0-99.0); MEAN CORPUSCULAR HEMOGLOBIN 31.1 pg (27.0-31.0); MEAN CORPUSCULAR HGB CONC 33.2 g/dL (33.0-37.0); MEAN PLATELET VOLUME 9.3 fL (7.2-11.7); MONO # 0.6 K/uL (0.0-0.8); MONO % 9.1 % (0.0-10.0); NEUT # 3.2 K/uL (1.8-7.0); NEUT % 50.2 % (50.0-75.0); RBC 4.33 Mil/uL (3.80-5.20); WHITE BLOOD COUNT 6.3 K/uL (4.8-10.8)
[2018-10-04] MEDS ORDERED: (Novolin R) Insulin Human Regular 100 units/ml vial ONE ×2 (01:48→05:11)
[2018-10-04] MEDS ORDERED: Iodixanol 320 MG/ML 100 ML BOTTLE IV ONE (03:05)
[2018-10-04 03:42] VITALS: RESP 20
[2018-10-04 04:45] LABS: BLOOD UREA NITROGEN 3 mg/dL (7-17); CALCIUM 8.1 mg/dl (8.6-10.4); GFR NON-AFRICAN AMERICAN > 60
[2018-10-04] MEDS ORDERED: (Novolin R) Insulin Human Regular 100 units/ml vial SC ONE (04:56)
[2018-10-04 06:14] VITALS: BP 128/70; PULSE 82; TEMP 98.1; O2SAT 97
--- NOTE | 2018-10-04 10:55 | CT ---
CT abdomen and pelvis HISTORY: Right-sided abdominal pain. Comparison: 07/08/2018 TECHNIQUE: Multiple contiguous axial images were performed through the abdomen and pelvis with the use of intravenous contrast. Subsequently, sagittal and coronal reformatted images were obtained. Findings: Focal nodular consolidation measuring 1.6 centimeters seen within the medial aspect of the right middle lobe. Bibasilar centrilobular nodularity of the lungs, probable bronchiolitis. No pleural or pericardial effusion. Periesophageal varicosities are noted. Fatty infiltration of the liver. Prominent liver. Mild diffuse irregularity of the hepatic contour. Prior cholecystectomy. Postsurgical prominence of the common bile duct. Spleen is preserved. Adrenal glands are preserved. Pancreas is preserved. Underdistended and or mildly thickened stomach. Right kidney: Mild fullness of the right renal collecting system. Left Kidney: No gross calculi or hydronephrosis. Distended urinary bladder. Uterus is grossly preserved. Fecal retention in the colon. Appendix not well identified. Mild atherosclerotic calcification and plaque within the aorta. IVC filter in place. Few shotty para-aortic and inguinal lymph nodes. Few shotty mesenteric lymph nodes. Degenerative changes in the spine. Small subcutaneous soft tissue nodule in the anterior left darnell abdomen on series 3, image 138 measuring up to 1.1 centimeters. Impression: 1. Appendix not well identified. Perhaps partially imaged and grossly preserved on series 3, image 100. Clinical correlation. 2. Focal nodular consolidation measuring 1.6 centimeters seen within the medial aspect of the right middle lobe. Bibasilar centrilobular nodularity of the lungs, probable bronchiolitis. 3. Periesophageal varicosities are noted. 4. Fatty infiltration of the liver. Prominent liver. Mild diffuse irregularity of the hepatic contour. 5. Prior cholecystectomy. 6. Postsurgical prominence of the common bile duct. 7. Underdistended and or mildly thickened stomach. 8. Mild fullness of the right renal collecting system. 9. Distended urinary bladder. 10. Fecal retention in the colon. 11. Mild atherosclerotic calcification and plaque within the aorta. 12. IVC filter in place. 13. Small subcutaneous soft tissue nodule in the anterior left darnell abdomen on series 3, image 138 measuring up to 1.1 centimeters. A preliminary report was generated at 4:17 a.m. on 10/04/[address] Janneth Davis from [employer]
== END 2018-10-04 06:10 | disposition home or self-care (01) ==
LOC: C.ER 23:31
DX: E10.65 Type 1 diabetes mellitus with hyperglycemia (principal); N39.0 Urinary tract infection, site not specified; R10.9 Unspecified abdominal pain; E03.9 Hypothyroidism, unspecified; E78.00 Pure hypercholesterolemia, unspecified; I10 Essential (primary) hypertension; I25.10 Atherosclerotic heart disease of native coronary artery without angina pectoris; J44.9 Chronic obstructive pulmonary disease, unspecified; Z72.0 Tobacco use
CPT/HCPCS: 74177; 80053; 81001; 82948; 83690; 85025; 87086; 96361; 96374; 99285; J7030; Q9966; Q9967

== ENCOUNTER 2018-10-05 17:19 | Emergency (ER) | payer MEDICARE, OTHER ==
[2018-10-05 17:19] VITALS: BMI 28.3
[2018-10-05 17:28] VITALS: RESP 18
--- NOTE | 2018-10-05 18:26 | C.PDOC ---
History Of Present Illness 68 year old female presents to the emergency department via BLS after being found outside under the influence. Patient admits to drinking beer today, offers no other complaints at this time. Patient is asking for food. Time Seen by Provider: 10/05/18 17:29 Chief Complaint (Nursing): Substance Abuse History Per: Patient History/Exam Limitations: no limitations Onset/Duration Of Symptoms: Hrs Current Symptoms Are (Timing): Still Present Suicide/Self Injury Attempted (Context): None Modifying Factor(s): Alcohol Associated Symptoms: denies: Suicidal Thoughts, Suicidal Plan Past Medical History Reviewed: Historical Data, Nursing Documentation, Vital Signs Vital Signs: Last Vital Signs Temp 98.1 F 10/05/18 17:23 Pulse 89 10/05/18 17:23 Resp 18 10/05/18 17:23 BP 125/80 10/05/18 17:23 Pulse Ox 96 10/05/18 17:23 - Medical History PMH: Anemia, Anxiety, Arthritis, Asthma, Bipolar Disorder, Bronchitis, CAD, COPD, Depression, Gastritis, GERD, HTN, Hypercholesterolemia, Hypothyroidism, Osteoporosis, Peripheral Edema, Pneumonia, Pulmonary Embolism Denies: Diabetes, Hepatitis, HIV, Chronic Kidney Disease, Seizures, Sexually Transmitted Disease Surgical History: CABG, Cholecystectomy, Coronary Stent - [facility] Procedures ALCOHOL DETOXIFICATION (03/15/15) EXCISION OF STOMACH, ENDO, DIAGN (05/29/18) FLUOROSCOPY OF MULT COR ART USING L OSM CONTRAST (03/10/18) GROUP PSYCHOTHERAPY (02/03/18) INDIV PSYCHOTHERAPY FOR SUBSTANCE ABUSE, COGNITIV BEHAVIORAL (02/03/18) INDIVID PSYCHOTHERAP NEC (04/14/13) INDIVIDUAL PSYCHOTHERAPY, COGNITIVE-BEHAVIORAL (02/03/18) INTRODUCTION OF ANTI-INFLAM INTO RESP TRACT, VIA OPENING (01/25/17) INTRODUCTION OF SERUM/TOX/VACCINE INTO MUSCLE, PERC APPROACH (09/02/17) MEASURE OF CARDIAC SAMPL & PRESSURE, L HEART, PERC APPROACH (03/10/18) OTHER GROUP THERAPY (04/14/13) PHYSICAL THERAPY NEC (06/12/14) Family History: States: No Known Family Hx - Social History Hx Tobacco Use: Yes Hx Alcohol Use: Yes Hx Substance Use: No - Immunization History Hx Tetanus Toxoid Vaccination: No Hx Influenza Vaccination: No Hx Pneumococcal Vaccination: No Review Of Systems Except As Marked, All Systems Reviewed And Found Negative. Constitutional: Negative for: Fever, Chills Gastrointestinal: Negative for: Nausea, Vomiting, Abdominal Pain, Diarrhea Psych: Positive for: Other (alcohol abuse). Negative for: Suicidal ideation Physical Exam - Physical Exam Appears: Non-toxic, No Acute Distress Skin: Normal Color, Warm, Dry Head: Atraumatic, Normacephalic Eye(s): bilateral: Normal Inspection, PERRL, EOMI Oral Mucosa: Moist Neck: Normal, Supple Chest: Symmetrical, No Tenderness Cardiovascular: Rhythm Regular, No Murmur Respiratory: Normal Breath Sounds, No Rales, No Rhonchi, No Wheezing Gastrointestinal/Abdominal: Soft, No Tenderness, No Guarding, No Rebound Neurological/Psych: Oriented x3, Other (alcohol intoxication) ED Course And Treatment - Laboratory Results Result Diagrams: 10/05/18 19:31 10/05/18 19:31 O2 Sat by Pulse Oximetry: 96 Medical Decision Making Medical Decision Making: Plan: Glucose POC uipon arriavl pt with hyperglycemia. labs sent. no e/o of dka. non specific LA. (suspect secondary to specimen sitting in er), neg cxr neg ua. afebrile, abd soft no ttp. pt sleepign innad. non specifc ketones, ph normal, likely dehydration, alcohol abuse. blood sugar decreased. ambulatory steady gait stable for dc. Disposition - Disposition Referrals: [facility] [Outside] [facility] [Outside] Disposition: HOME/ ROUTINE Disposition Time: 20:00 Condition: GOOD Additional Instructions: follow up with your doctor/clinic. return to any er with worsneing symptoms or concerns. Instructions: Alcohol Use - When Is Drinking a Problem?, Hyperglycemia, Adult Forms: [employer] (French) - Clinical Impression Clinical Impression: Alcohol abuse - Scribe Statement The provider has reviewed the documentation as recorded by the Scribe (Darinel Chang) Provider Attestation: All medical record entries made by the Scribe were at my direction and personally dictated by me. I have reviewed the chart and agree that the record accurately reflects my personal performance of the history, physical exam, medical decision making, and the department course for this patient. I have also personally directed, reviewed, and agree with the discharge instructions and disposition.
[2018-10-05] MEDS ORDERED: Sodium Chloride 0.9% 1,000 ML IV ONE (19:01)
[2018-10-05 19:39] LABS: EOS # 0.1 K/uL (0.0-0.7); EOS % 1.3 % (0.0-4.0); LYMPH # 1.7 K/uL (1.0-4.3); LYMPH % 34.9 % (20.0-40.0); MEAN CELL VOLUME 92.2 fL (81.0-99.0); MEAN CORPUSCULAR HEMOGLOBIN 30.8 pg (27.0-31.0); MEAN CORPUSCULAR HGB CONC 33.4 g/dL (33.0-37.0); MEAN PLATELET VOLUME 9.2 fL (7.2-11.7); MONO # 0.4 K/uL (0.0-0.8); MONO % 8.1 % (0.0-10.0); NEUT # 2.7 K/uL (1.8-7.0); NEUT % 54.7 % (50.0-75.0); NRBC % 0.2 % (0.0-2.0); RBC 4.56 Mil/uL (3.80-5.20); RED CELL DISTRIBUTION WIDTH 15.3 % (11.5-14.5); WHITE BLOOD COUNT 4.9 K/uL (4.8-10.8)
[2018-10-05 19:48] LABS: INR 1.2; PROTHROMBIN TIME 12.8 SECONDS (9.7-12.2)
[2018-10-05 19:50] LABS: ALT/SGPT 66 U/L (9-52); AST/SGOT 137 U/L (14-36); BLOOD UREA NITROGEN 5 mg/dL (7-17); CALCIUM 9.1 mg/dl (8.6-10.4); GFR NON-AFRICAN AMERICAN > 60
[2018-10-05] MEDS ORDERED: (Novolin R) Insulin Human Regular 100 units/ml vial IVP STA (20:08)
[2018-10-05 20:32] LABS: VENOUS BLOOD GAS BASE EXCESS -3.3 mmol/L (0.0-2.0); VENOUS BLOOD GAS PCO2 40 mmHg (40-60); VENOUS BLOOD GAS PO2 37 mm/Hg (30-55); VENOUS BLOOD PH 7.35 (7.32-7.43)
[2018-10-05] MEDS ORDERED: (Novolin R) Insulin Human Regular 100 units/ml vial ONE (20:33)
[2018-10-05 20:34] VITALS: BP 126/67; PULSE 86; TEMP 98
[2018-10-05 21:15] LABS: SQUAMOUS EPITHIAL 1 /hpf (0-5); URINE BACTERIA RARE (<OCC); URINE BILIRUBIN NEGATIVE (NEGATIVE); URINE BLOOD 1+ (NEGATIVE); URINE CLARITY Clear (Clear); URINE COLOR Yellow (YELLOW); URINE GLUCOSE (UA) 3+ mg/dL (Normal); URINE LEUKOCYTE ESTERASE TRACE Leu/uL (Negative); URINE PROTEIN NEGATIVE (NEGATIVE); URINE UROBILINOGEN NORMAL mg/dL (0.2-1.0)
[2018-10-06 00:01] VITALS: O2SAT 96
--- NOTE | 2018-10-06 09:08 | RAD ---
Date of service: 10/05/2018 HISTORY: melodie COMPARISON: 06/20/2018 FINDINGS: LUNGS: The lungs are well inflated and clear. PLEURA: No pleural effusions or pneumothorax. CARDIOVASCULAR: The heart is normal in size. No aortic atherosclerotic calcifications present. OSSEOUS STRUCTURES: Within normal limits for the patient's age. VISUALIZED UPPER ABDOMEN: Normal. OTHER FINDINGS: None. IMPRESSION: No active pulmonary disease.
== END 2018-10-05 21:33 | disposition home or self-care (01) ==
LOC: C.ER 17:19
DX: F10.10 Alcohol abuse, uncomplicated (principal); I25.10 Atherosclerotic heart disease of native coronary artery without angina pectoris; I10 Essential (primary) hypertension; E78.00 Pure hypercholesterolemia, unspecified; K21.9 Gastro-esophageal reflux disease without esophagitis; F17.210 Nicotine dependence, cigarettes, uncomplicated
CPT/HCPCS: 71045; 80053; 81001; 82009; 82803; 82948; 85025; 85610; 85730; 96361; 96374; 99284; J7030

== ENCOUNTER 2018-10-14 20:19 | Emergency (ER) | payer MEDICARE, OTHER | END 2018-10-14 23:19 | disposition home or self-care (01) | LOC: C.ER 20:19 ==

== ENCOUNTER 2018-10-16 15:47 | Inpatient (IN) | payer MEDICARE, OTHER ==
[2018-10-16 15:48] VITALS: BMI 28.3
[2018-10-16] MEDS ORDERED: (Novolin R) Insulin Human Regular 100 units/ml vial IVP ONE (16:53)
[2018-10-16] MEDS ORDERED: Iohexol 300 100 ML IJ ONE (16:57)
[2018-10-16 16:58] LABS: SQUAMOUS EPITHIAL 1 /hpf (0-5); URINE BILIRUBIN NEGATIVE (NEGATIVE); URINE BLOOD 1+ (NEGATIVE); URINE CLARITY Clear (Clear); URINE COLOR Yellow (YELLOW); URINE GLUCOSE (UA) 3+ mg/dL (Normal); URINE LEUKOCYTE ESTERASE NEG Leu/uL (Negative); URINE PROTEIN NEGATIVE (NEGATIVE); URINE UROBILINOGEN NORMAL mg/dL (0.2-1.0)
[2018-10-16 16:59] LABS: BASO % 0.8 % (0.0-2.0); EOS # 0.1 K/uL (0.0-0.7); EOS % 1.4 % (0.0-4.0); HEMOGLOBIN 12.7 g/dL (11.0-16.0); LYMPH # 1.1 K/uL (1.0-4.3); LYMPH % 20.6 % (20.0-40.0); MEAN CELL VOLUME 92.4 fL (81.0-99.0); MEAN CORPUSCULAR HEMOGLOBIN 30.4 pg (27.0-31.0); MEAN CORPUSCULAR HGB CONC 32.9 g/dL (33.0-37.0); MEAN PLATELET VOLUME 9.5 fL (7.2-11.7); MONO # 0.6 K/uL (0.0-0.8); MONO % 10.6 % (0.0-10.0); NEUT # 3.6 K/uL (1.8-7.0); NEUT % 66.6 % (50.0-75.0); NRBC % 0.1 % (0.0-2.0); RBC 4.2 Mil/uL (3.80-5.20); RED CELL DISTRIBUTION WIDTH 15.3 % (11.5-14.5); WHITE BLOOD COUNT 5.4 K/uL (4.8-10.8)
[2018-10-16] MEDS ORDERED: (Novolin R) Insulin Human Regular 100 units/ml vial ONE ×2 (16:59→19:22)
[2018-10-16 17:18] LABS: ALT/SGPT 90 U/L (9-52); AST/SGOT 123 U/L (14-36); BLOOD UREA NITROGEN 9 mg/dL (7-17); CALCIUM 9.7 mg/dl (8.6-10.4); GFR NON-AFRICAN AMERICAN > 60; LIPASE 167 U/L (23-300)
[2018-10-16] MEDS ORDERED: (Novolin R) Insulin Human Regular 100 units/ml vial IV ONE (18:33)
--- NOTE | 2018-10-16 18:33 | CT ---
Date of service: 10/16/2018 PROCEDURE: CT Abdomen and Pelvis with contrast HISTORY: abd. pain COMPARISON: CT scan of the abdomen and pelvis dated 10/04/2018. TECHNIQUE: Contrast dose: 100 mL Visipaque 320 Radiation dose: Total exam DLP = 410.99 mGy-cm. This CT exam was performed using one or more of the following dose reduction techniques: Automated exposure control, adjustment of the mA and/or kV according to patient size, and/or use of iterative reconstruction technique. FINDINGS: LOWER THORAX: Cardiomegaly. Coronary arterial and valvular calcifications. LIVER: Hepatic steatosis. No gross lesion or ductal dilatation. GALLBLADDER AND BILE DUCTS: Prior cholecystectomy. PANCREAS: Unremarkable. No gross lesion or ductal dilatation. SPLEEN: Splenomegaly. ADRENALS: Unremarkable. No mass. KIDNEYS AND URETERS: Unremarkable. No hydronephrosis. No solid mass. VASCULATURE: Prominent perigastric varices. No aortic aneurysm. No aortic atherosclerotic calcification or mural plaque present. Inferior vena cava filter present. BOWEL: Colonic diverticulosis. No obstruction. No gross mural thickening. APPENDIX: Normal appendix. PERITONEUM: Unremarkable. No free fluid. No free air. LYMPH NODES: Unremarkable. No enlarged lymph nodes. BLADDER: Unremarkable. REPRODUCTIVE: Unremarkable. BONES: Grade 1 anterolisthesis of L4 on L5. No acute fracture. OTHER FINDINGS: Small anterior abdominal wall subcutaneous nodules, likely injection granulomas. IMPRESSION: No acute abdominal pelvic pathology. Stable findings as above.
[2018-10-16 18:49] LABS: BARBITURATES, UR NEGATIVE (NEGATIVE); BENZODIAZEPINES, UR NEGATIVE (NEGATIVE); OPIATES, UR NEGATIVE (NEGATIVE); PHENCYCLIDINE, UR NEGATIVE (NEGATIVE)
--- NOTE | 2018-10-16 19:22 | C.PDOC ---
History Of Present Illness 68 y/o female presents to the ED complaining of generalized abdominal pain since last night. Associated with nausea but no vomiting. Patient also reports having 3 episodes of watery non-bloody diarrhea. Of note patient is a diabetic, and blood glucose is found to be elevated on arrival. Patient denies any fevers, chills, or urinary symptoms. Time Seen by Provider: 10/16/18 16:23 Chief Complaint (Nursing): Abdominal Pain History Per: Patient History/Exam Limitations: no limitations Onset/Duration Of Symptoms: Days (x2) Current Symptoms Are (Timing): Still Present Past Medical History Reviewed: Historical Data, Nursing Documentation, Vital Signs Vital Signs: Last Vital Signs Temp 97.8 F 10/16/18 15:55 Pulse 89 10/16/18 15:55 Resp 18 10/16/18 15:55 BP 145/85 10/16/18 15:55 Pulse Ox 99 10/16/18 15:55 - Medical History PMH: Anemia, Anxiety, Arthritis, Asthma, Bipolar Disorder, Bronchitis, CAD, COPD, Depression, Gastritis, GERD, HTN, Hypercholesterolemia, Hypothyroidism, Osteoporosis, Peripheral Edema, Pneumonia, Pulmonary Embolism Denies: Diabetes, Hepatitis, HIV, Chronic Kidney Disease, Seizures, Sexually Transmitted Disease Surgical History: CABG, Cholecystectomy, Coronary Stent - [facility] Procedures ALCOHOL DETOXIFICATION (03/15/15) EXCISION OF STOMACH, ENDO, DIAGN (05/29/18) FLUOROSCOPY OF MULT COR ART USING L OSM CONTRAST (03/10/18) GROUP PSYCHOTHERAPY (02/03/18) INDIV PSYCHOTHERAPY FOR SUBSTANCE ABUSE, COGNITIV BEHAVIORAL (02/03/18) INDIVID PSYCHOTHERAP NEC (04/14/13) INDIVIDUAL PSYCHOTHERAPY, COGNITIVE-BEHAVIORAL (02/03/18) INTRODUCTION OF ANTI-INFLAM INTO RESP TRACT, VIA OPENING (01/25/17) INTRODUCTION OF SERUM/TOX/VACCINE INTO MUSCLE, PERC APPROACH (09/02/17) MEASURE OF CARDIAC SAMPL & PRESSURE, L HEART, PERC APPROACH (03/10/18) OTHER GROUP THERAPY (04/14/13) PHYSICAL THERAPY NEC (06/12/14) Family History: States: Unknown Family Hx - Social History Hx Tobacco Use: Yes Hx Alcohol Use: Yes Hx Substance Use: No - Immunization History Hx Tetanus Toxoid Vaccination: No Hx Influenza Vaccination: No Hx Pneumococcal Vaccination: No Review Of Systems Except As Marked, All Systems Reviewed And Found Negative. Constitutional: Negative for: Fever, Chills Gastrointestinal: Positive for: Nausea, Abdominal Pain, Diarrhea. Negative for: Vomiting, Hematochezia Genitourinary: Negative for: Dysuria, Frequency, Incontinence, Hematuria Physical Exam - Physical Exam Appears: Non-toxic, No Acute Distress Skin: Normal Color, Warm Head: Atraumatic, Normacephalic Eye(s): bilateral: Normal Inspection, PERRL, EOMI Oral Mucosa: Moist Neck: Normal ROM Chest: Symmetrical Cardiovascular: Rhythm Regular, No Murmur Respiratory: Normal Breath Sounds, No Rales, No Rhonchi, No Wheezing Gastrointestinal/Abdominal: Soft, Tenderness (generalized tenderness), No Guarding, No Rebound Back: No CVA Tenderness, No Vertebral Tenderness Extremity: Bilateral: Atraumatic, Normal Color And Temperature Neurological/Psych: Oriented x3, Normal Speech ED Course And Treatment - Laboratory Results Result Diagrams: 10/16/18 16:51 10/16/18 16:51 Lab Results: Troponin I 0.0190 ng/mL (0.00-0.120) 10/16/18 16:51 Total Bilirubin 1.8 mg/dL (0.2-1.3) H 10/16/18 16:51 AST 123 U/L (14-36) H D 10/16/18 16:51 ALT 90 U/L (9-52) H 10/16/18 16:51 Alkaline Phosphatase 227 U/L (38-126) H 10/16/18 16:51 Total Protein 7.8 g/dL (6.3-8.3) 10/16/18 16:51 Albumin 4.0 g/dL (3.5-5.0) 10/16/18 16:51 Globulin 3.8 gm/dL (2.2-3.9) 10/16/18 16:51 Albumin/Globulin Ratio 1.0 (1.0-2.1) 10/16/18 16:51 Lipase 167 U/L (23-300) 10/16/18 16:51 Urine Color Yellow (YELLOW) 10/16/18 16:51 Urine Clarity Clear (Clear) 10/16/18 16:51 Urine pH 6.0 (5.0-8.0) 10/16/18 16:51 Ur Specific [place] 1.029 (1.003-1.030) 10/16/18 16:51 Urine Protein Negative mg/dL (NEGATIVE) 10/16/18 16:51 Urine Glucose (UA) 3+ mg/dL (Normal) H 10/16/18 16:51 Urine Ketones 1+ mg/dL (NEGATIVE) H 10/16/18 16:51 Urine Blood 1+ (NEGATIVE) H 10/16/18 16:51 Urine Nitrate Negative (NEGATIVE) 10/16/18 16:51 Urine Bilirubin Negative (NEGATIVE) 10/16/18 16:51 Urine Urobilinogen Normal mg/dL (0.2-1.0) 10/16/18 16:51 Ur Leukocyte Esterase Neg Demetri/uL (Negative) 10/16/18 16:51 Urine WBC (Auto) 1 /hpf (0-5) 10/16/18 16:51 Urine RBC (Auto) 1 /hpf (0-3) 10/16/18 16:51 Ur Squamous Epith Cells 1 /hpf (0-5) 10/16/18 16:51 O2 Sat by Pulse Oximetry: 99 (RA) Pulse Ox Interpretation: Normal - CT Scan/US CT Abdomen/Pelvis Other Rad Studies (CT/US): Radiology Report Reviewed CT/US Interpretation: Accession No. : [id number]. Patient Name / ID : MÓNICA ROMAN / [id number]. Exam Date : 10/16/2018 17:50:36 ( Approved ). Study Comment : Sex / Age : F / 68Y. Creator : Marcello Borja MD. Dictator : Marcello Borja MD. Swedish Masseuse : [employer] Supervisor : Marcello Borja MD. Approver2 : Report Date : 10/16/2018 18:29:16. My Comment : . Date of service: 10/16/2018. PROCEDURE: CT Abdomen and Pelvis with contrast. HISTORY: abd. pain. COMPARISON: CT scan of the abdomen and pelvis dated 10/04/2018. TECHNIQUE: Contrast dose: 100 mL Visipaque 320. Radiation dose: Total exam DLP = 410.99 mGy-cm. This CT exam was performed using one or more of the following dose reduction techniques: Automated exposure control, adjustment of the mA and/or kV according to patient size, and/or use of iterative reconstruction technique. FINDINGS: LOWER THORAX: Cardiomegaly. Coronary arterial and valvular calcifications. LIVER: Hepatic steatosis. No gross lesion or ductal dilatation. GALLBLADDER AND BILE DUCTS: Prior cholecystectomy. PANCREAS: Unremarkable. No gross lesion or ductal dilatation. SPLEEN: Splenomegaly. ADRENALS: Unremarkable. No mass. KIDNEYS AND URETERS: Unremarkable. No hydronephrosis. No solid mass. VASCULATURE: Prominent perigastric varices. No aortic aneurysm. No aortic atherosclerotic calcification or mural plaque present. Inferior vena cava filter present. BOWEL: Colonic diverticulosis. No obstruction. No gross mural thickening. APPENDIX: Normal appendix. PERITONEUM: Unremarkable. No free fluid. No free air. LYMPH NODES: Unremarkable. No enlarged lymph nodes. BLADDER: Unremarkable. REPRODUCTIVE: Unremarkable. BONES: Grade 1 anterolisthesis of L4 on L5. No acute fracture. OTHER FINDINGS: Small anterior abdominal wall subcutaneous nodules, likely injection granulomas. IMPRESSION: No acute abdominal pelvic pathology. Stable findings as above. Medical Decision Making Medical Decision Making: Initial Impression: Abdominal pain, Hyperglycemia Plan: --CMP, CBC, lipase, trop --UA --EKG --CT Abdomen/Pelvis with IV contrast --4 mg IV Zofran --40 mg IV Protonix --6 units IV insulin Progress/Updates: During patients ED evaluation, hours after initial interview, patient reports she is here for detox and has been prescreened. Patient states she drinks daily and pain is exacerbated when she withdraws. UDS and alcohol level added on. Labs reviewed. Glucose 482. LFTs elevated. U-tox negative. 18:11 Finger stick BS is down to 339. Patient given additional 6 units of IV insulin as per hyperglycemia protocol. Disposition Discussed With : Nikolai Patterson Doctor Will See Patient In The: Hospital Counseled Patient/Family Regarding: Studies Performed, Diagnosis - Disposition Disposition: HOSPITALIZED Disposition Time: 21:56 Condition: FAIR Forms: Undertone (Spanish) - Clinical Impression Clinical Impression: Alcohol abuse - Scribe Statement The provider has reviewed the documentation as recorded by the Alan Medeiros Provider Attestation: All medical record entries made by the Alan were at my direction and personally dictated by me. I have reviewed the chart and agree that the record accurately reflects my personal performance of the history, physical exam, medical decision making, and the department course for this patient. I have also personally directed, reviewed, and agree with the discharge instructions and disposition.
--- NOTE | 2018-10-17 06:07 | PCM.BM ---
<Pacheco Hdz - Last Filed: 10/17/18 06:05> Treatment Plan Problems - Problems identified on initial assessmt Knowledge Deficit: Alcohol use Date Initiated: 10/17/18 Time Initiated: 06:06 Assessment reference: NA Defesive Coping Date Initiated: 10/17/18 Time Initiated: 06:06 Assessment reference: NA Status: Active Treatment assets and liabiliti Patient Assests: cooperative, ADL independent, negotiates basic needs Patient Liabilities: substance abuse - Milieu Protocol Maintain good personal hygiene: daily Encourage regular showers, daily Remind patient to perform daily oral care, daily Assist patient to perform ADL's Maintain personal safety: every shift Educate patient to report safety concerns to staff, every shift Monitor environment for contraband/sharps Medication safety: Monitor for expected outcome, potential side effects: every shift, Assess barriers to learning: every shift, Assess readiness for medication education: every shift <Archana Yoon - Last Filed: 10/19/18 14:35> Family Contact Family involvement: Family/SO is involved Family contact name: daughterSheree Family contacted how many times per week?: 2 - Goals for Treatment Patient goals for treatment: Complete detox and transition to outpatient program and 12-step meetings. Discharge/Continuing Care - Education Needs Education Needs: Family Diagnosis/Disease Process, Family Community resources, Patient Medication, Patient Diagnosis/Disease Process, Patient Coping Skills, Patient Anger Management skills, Patient Placement options, Patient Community resources - Discharge Discharge Criteria: Normal sleep pattern, Ability to care for self, No longer exhibiting s/s of withdrawal, Reduction of target symptoms Discharge to:: Home, With Family - Treatment Team Participation Patient/Family/SO Statement: 10/19/18 14:34( (via city bailiff, Delma)"I'll go to therapy and meetings." Discussed with Family/SO: No Was Patient/Family/SO present at Treatment Team Meeting: Yes
[2018-10-17 06:09] LABS: ALB/GLOB RATIO 0.9 (1.0-2.1); ALBUMIN 3.4 g/dL (3.5-5.0); ALT/SGPT 70 U/L (9-52); AST/SGOT 91 U/L (14-36); BLOOD UREA NITROGEN 10 mg/dL (7-17); CALCIUM 8.9 mg/dl (8.6-10.4); GFR NON-AFRICAN AMERICAN > 60
[2018-10-17] MEDS ORDERED: (Novolog) Insulin Aspart, Recombinant 100 u/ml 10 ml vial SC ONE (06:21)
[2018-10-17] MEDS: (Novolog) Insulin Aspart, Recombinant 100 u/ml 10 ml vial SC SCH ×2 (08:30→11:27)
[2018-10-17] MEDS: Multiple Vitamins Tab PO SCH (09:21)
--- NOTE | 2018-10-17 09:31 | CP.PCM.CON ---
History of Present Illness - History of Present Illness History of Present Illness: Medicine consult note for Dr. Ramírez Patient is a 68 year old female with pmhx of DM2, alcohol abuse, COPD, HTN, depression who presented to the ED with complaints of abdominal pain, admitted for alcohol abuse. Medicine consult for glucose control as patient was hyperglycemic in the ED with POC glucose of 467. Patient reports she takes metformin at home to manage her diabetes, but does not regularly follow up with a doctor. pmhs: DM2, alcohol abuse, HTN, COPD, depression pshx: cholecystectomy meds: metformin, xanax, inhaler, HTN med unknown allergies: NKDA sochx: drinks 2-3 beers/day, smokes 2 cigs/day, denies drug use Review of Systems - EENT Eyes: absent: Change in Vision - Cardiovascular Cardiovascular: absent: Chest Pain, Palpitations - Respiratory Respiratory: Wheezing - Gastrointestinal Gastrointestinal: Nausea. absent: Abdominal Pain, Diarrhea - Genitourinary Genitourinary: absent: Dysuria - Musculoskeletal Musculoskeletal: Arthralgias (hands) - Neurological Neurological: absent: Dizziness - Psychiatric Psychiatric: Depression Past Patient History - Infectious Disease Hx of Infectious Diseases: None - Past Medical History & Family History Past Medical History?: Yes - Past Social History Smoking Status: Light Smoker < 10 Cigarettes Daily - CARDIAC Hx Cardiac Disorders: No Hx Hypertension: No - PULMONARY Hx Tuberculosis: No - NEUROLOGICAL HX Cerebrovascular Accident: No Hx Seizures: No - HEENT Hx HEENT Problems: No - RENAL Hx Chronic Kidney Disease: No - ENDOCRINE/METABOLIC Hx Hypothyroidism: Yes - HEMATOLOGICAL/ONCOLOGICAL Hx Cancer: No Hx Human Immunodeficiency Virus (HIV): No - INTEGUMENTARY Hx Dermatological Problems: No - MUSCULOSKELETAL/RHEUMATOLOGICAL Hx Arthritis: Yes Hx Falls: No Hx Osteoporosis: Yes - GASTROINTESTINAL Hx Gastritis: Yes - GENITOURINARY/GYNECOLOGICAL Hx Sexually Transmitted Disorders: No - PSYCHIATRIC Hx Anxiety: Yes Hx Bipolar Disorder: Yes Hx Depression: Yes Hx Substance Use: Yes - SURGICAL HISTORY Hx Cholecystectomy: Yes Hx Coronary Artery Bypass Graft: Yes Hx Coronary Stent: Yes - ANESTHESIA Hx Anesthesia: Yes Hx Anesthesia Reactions: No Hx Malignant Hyperthermia: No Meds Allergies/Adverse Reactions: Allergies Allergy/AdvReac Type Severity Reaction Status Date / Time ceftriaxone Allergy Intermediate RASH Verified 10/16/18 15:59 moxifloxacin HCl Allergy Intermediate RASH Verified 10/16/18 15:59 [From Avelox] - Medications Medications: Current Medications Clonidine HCl (Catapres) 0.1 mg PO Q4H PRN PRN Reason: Symptoms of alcohol withdrawl Last Admin: 10/17/18 00:05 Dose: 0.1 mg Dicyclomine HCl (Bentyl) 10 mg PO Q6 PRN PRN Reason: Muscle spasm Folic Acid (Folic Acid) 1 mg PO DAILY [facility] Last Admin: 10/17/18 09:21 Dose: 1 mg Hydroxyzine HCl (Atarax) 25 mg PO Q6 PRN PRN Reason: Anxiety Last Admin: 10/17/18 00:04 Dose: 25 mg Ibuprofen (Motrin Tab) 600 mg PO Q6 PRN PRN Reason: Pain, moderate (4-7) Insulin Aspart (Novolog) 0 unit SC ACHS [facility]; Protocol Last Admin: 10/17/18 08:30 Dose: 8 units Lactulose (Enulose) 20 gm PO HS [facility] Lorazepam (Ativan) 2 mg PO Q6H [facility]; Taper Stop: 10/21/18 23:44 Last Admin: 10/17/18 05:45 Dose: Not Given Lorazepam (Ativan) 1 mg PO Q4H PRN PRN Reason: Symptoms of alcohol withdrawl Multivitamins (Hexavitamin) 1 tab PO DAILY [facility] Last Admin: 10/17/18 09:21 Dose: 1 tab Thiamine HCl (Vitamin B1 Tab) 100 mg PO DAILY [facility] Last Admin: 10/17/18 09:21 Dose: 100 mg Trazodone HCl (Desyrel) 50 mg PO HS PRN PRN Reason: Insomnia Last Admin: 10/17/18 00:04 Dose: 50 mg Physical Exam - Constitutional Appears: Non-toxic, No Acute Distress - Head Exam Head Exam: ATRAUMATIC, NORMAL INSPECTION, NORMOCEPHALIC - Eye Exam Eye Exam: EOMI, Normal appearance Pupil Exam: PERRL - ENT Exam ENT Exam: Mucous Membranes Moist, Normal Exam - Neck Exam Neck exam: Positive for: Normal Inspection - Respiratory Exam Respiratory Exam: Wheezes, NORMAL BREATHING PATTERN. absent: Respiratory Distress - Cardiovascular Exam Cardiovascular Exam: REGULAR RHYTHM, Systolic Murmur (holosystolic) - GI/Abdominal Exam GI & Abdominal Exam: Normal Bowel Sounds, Soft. absent: Distended, Tenderness - Extremities Exam Extremities exam: Positive for: normal inspection. Negative for: calf tende rness, pedal edema - Neurological Exam Neurological exam: Alert, Oriented x3 - Psychiatric Exam Psychiatric exam: Normal Affect, Normal Mood - Skin Skin Exam: Dry, Intact, Normal Color, Warm Results - Vital Signs Recent Vital Signs: Last Vital Signs Temp 98 F 10/17/18 06:19 Pulse 114 H 10/17/18 06:19 Resp 22 10/17/18 06:19 BP 104/74 10/17/18 06:19 Pulse Ox 98 10/17/18 06:19 - Labs Result Diagrams: 10/16/18 16:51 10/17/18 05:42 Labs: Laboratory Results - last 24 hr 10/16/18 10/16/18 10/16/18 15:55 16:51 16:51 WBC 5.4 RBC 4.20 Hgb 12.7 Hct 38.8 MCV 92.4 MCH 30.4 MCHC 32.9 L RDW 15.3 H Plt Count 124 L MPV 9.5 Neut % (Auto) 66.6 Lymph % (Auto) 20.6 [place] % (Auto) 10.6 H Eos % (Auto) 1.4 Baso % (Auto) 0.8 Neut # (Auto) 3.6 Lymph # (Auto) 1.1 [place] # (Auto) 0.6 Eos # (Auto) 0.1 Baso # (Auto) 0.0 Differential Comment Sodium Potassium Chloride Carbon Dioxide Anion Gap BUN Creatinine Est GFR ( Amer) Est GFR (Non-Af Amer) POC Glucose (mg/dL) 467 H* Random Glucose Hemoglobin A1c Calcium Phosphorus Magnesium Total Bilirubin AST ALT Alkaline Phosphatase Ammonia Troponin I Total Protein Albumin Globulin Albumin/Globulin Ratio Lipase TSH 3rd Generation Urine Color Yellow Urine Clarity Clear Urine pH 6.0 Ur Specific [place] 1.029 Urine Protein Negative Urine Glucose (UA) 3+ H Urine Ketones 1+ H Urine Blood 1+ H Urine Nitrate Negative Urine Bilirubin Negative Urine Urobilinogen Normal Ur Leukocyte Esterase Neg Urine WBC (Auto) 1 Urine RBC (Auto) 1 Ur Squamous Epith Cells 1 Urine Opiates Screen Urine Methadone Screen Ur Barbiturates Screen Ur Phencyclidine Scrn Ur Amphetamines Screen U Benzodiazepines Scrn U Oth Cocaine Metabols U Cannabinoids Screen Alcohol, Quantitative 10/16/18 10/16/18 10/16/18 16:51 18:11 18:26 WBC RBC Hgb Hct MCV MCH MCHC RDW Plt Count MPV Neut % (Auto) Lymph % (Auto) [place] % (Auto) Eos % (Auto) Baso % (Auto) Neut # (Auto) Lymph # (Auto) [place] # (Auto) Eos # (Auto) Baso # (Auto) Differential Comment Sodium 134 Potassium 3.9 Chloride 97 L Carbon Dioxide 24 Anion Gap 17 BUN 9 Creatinine 0.4 L Est GFR ( Amer) > 60 Est GFR (Non-Af Amer) > 60 POC Glucose (mg/dL) 339 H Random Glucose 482 H* Hemoglobin A1c Calcium 9.7 Phosphorus Magnesium Total Bilirubin 1.8 H AST 123 H D ALT 90 H Alkaline Phosphatase 227 H Ammonia Troponin I 0.0190 Total Protein 7.8 Albumin 4.0 Globulin 3.8 Albumin/Globulin Ratio 1.0 Lipase 167 TSH 3rd Generation Urine Color Urine Clarity Urine pH Ur Specific [place] Urine Protein Urine Glucose (UA) Urine Ketones Urine Blood Urine Nitrate Urine Bilirubin Urine Urobilinogen Ur Leukocyte Esterase Urine WBC (Auto) Urine RBC (Auto) Ur Squamous Epith Cells Urine Opiates Screen Negative Urine Methadone Screen Negative Ur Barbiturates Screen Negative Ur Phencyclidine Scrn Negative Ur Amphetamines Screen Negative U Benzodiazepines Scrn Negative U Oth Cocaine Metabols Negative U Cannabinoids Screen Negative Alcohol, Quantitative 10/16/18 10/16/18 10/17/18 18:27 20:40 05:42 WBC RBC Hgb Hct MCV MCH MCHC RDW Plt Count MPV Neut % (Auto) Lymph % (Auto) [place] % (Auto) Eos % (Auto) Baso % (Auto) Neut # (Auto) Lymph # (Auto) [place] # (Auto) Eos # (Auto) Baso # (Auto) Differential Comment Sodium 133 Potassium 4.0 Chloride 100 Carbon Dioxide 25 Anion Gap 13 BUN 10 Creatinine 0.5 L Est GFR ( Amer) > 60 Est GFR (Non-Af Amer) > 60 POC Glucose (mg/dL) 198 H Random Glucose 465 H* Hemoglobin A1c Calcium 8.9 Phosphorus 4.1 Magnesium 1.8 Total Bilirubin 1.3 AST 91 H D ALT 70 H D Alkaline Phosphatase 177 H D Ammonia Troponin I Total Protein 7.0 Albumin 3.4 L Globulin 3.7 Albumin/Globulin Ratio 0.9 L Lipase TSH 3rd Generation 3.73 Urine Color Urine Clarity Urine pH Ur Specific [place] Urine Protein Urine Glucose (UA) Urine Ketones Urine Blood Urine Nitrate Urine Bilirubin Urine Urobilinogen Ur Leukocyte Esterase Urine WBC (Auto) Urine RBC (Auto) Ur Squamous Epith Cells Urine Opiates Screen Urine Methadone Screen Ur Barbiturates Screen Ur Phencyclidine Scrn Ur Amphetamines Screen U Benzodiazepines Scrn U Oth Cocaine Metabols U Cannabinoids Screen Alcohol, Quantitative < 10 10/17/18 10/17/18 10/17/18 05:42 05:42 07:46 WBC RBC Hgb Hct MCV MCH MCHC RDW Plt Count MPV Neut % (Auto) Lymph % (Auto) [place] % (Auto) Eos % (Auto) Baso % (Auto) Neut # (Auto) Lymph # (Auto) [place] # (Auto) Eos # (Auto) Baso # (Auto) Differential Comment Sodium Potassium Chloride Carbon Dioxide Anion Gap BUN Creatinine Est GFR ( Amer) Est GFR (Non-Af Amer) POC Glucose (mg/dL) 367 H Random Glucose Hemoglobin A1c 13.0 H Calcium Phosphorus Magnesium Total Bilirubin AST ALT Alkaline Phosphatase Ammonia 71 H D Troponin I Total Protein Albumin Globulin Albumin/Globulin Ratio Lipase TSH 3rd Generation Urine Color Urine Clarity Urine pH Ur Specific [place] Urine Protein Urine Glucose (UA) Urine Ketones Urine Blood Urine Nitrate Urine Bilirubin Urine Urobilinogen Ur Leukocyte Esterase Urine WBC (Auto) Urine RBC (Auto) Ur Squamous Epith Cells Urine Opiates Screen Urine Methadone Screen Ur Barbiturates Screen Ur Phencyclidine Scrn Ur Amphetamines Screen U Benzodiazepines Scrn U Oth Cocaine Metabols U Cannabinoids Screen Alcohol, Quantitative Assessment & Plan - Assessment and Plan (Free Text) Assessment: 68 year old female admitted for alcohol detox, medicine consulted for glucose management Plan: Uncontrolled DM2 -hbg A1C 13.0 -UA glucose 3+, ketones 1+ -accuchecks achs -ISS achs high dose -hypoglycemic protocol -switch to diabetic diet -counseled pt on healthy eating choices, avoiding sugary juices -resume home metformin 1000mg po BID COPD -duonebs q4 scheduled, change to prn after several treatments Hyperammonemia -ammonia 71(10/17) -start lactulose 20mg po hs Alcohol abuse -ativan, folate, multivitamins, B1 -management per primary Discussed with Dr. Ramírez -Sylvia Harvey, PGY-1
[2018-10-17] MEDS ORDERED: Albuterol-Ipratrop 3 mg / 0.5 (3 ml) UD INH PRN (10:01)
[2018-10-17] MEDS ORDERED: Glucagon Recombinant 1 mg Inj IM PRN (10:07)
[2018-10-17] MEDS ORDERED: Dextrose 50% SYRINGE Inj (50 ml) IV PRN (10:07)
--- NOTE | 2018-10-17 13:45 | PCM.PSYCH ---
Initial Psychiatric Evaluation - Initial Psychiatric Evaluation Type of Admission: Voluntary Legal Status: Capacity Chief Complaint (in patient's own words): "I need to stop alcohol" History of Present Illness and Precipitating Events: She is seen, chart reviewed and case discussed. 68 year old female who is single, has 2 adult children, currently unemployed, living with her daughter and has a past psychiatric history of d epression (or bipolar disorder) presents to the hospital for alcohol detox. Pt is a poor historian, she is slightly confused and very forgetful. [place] speaking staff translated. Pt states she was brought to the hospital via ambulance and remembers drinking but states she does not remember anything else. Pt states she does not recall what had happened and how she ended up in the hospital. Pt states she has an alcohol problem and that she drank alcohol "sometime this week", but cannot recall how much or when. In ED she minimized it and said "4 beers" but she was in significant withdrawal and liver is elevated. She clearly drinks much more. She has had many ER visits b/c of alcohol. Daughter could not be reached for collateral info today but we will try again. When she called us before she did report patient drinks "a lot." Pt has a history of inpatient psychiatric hospitalization in the past for depression and suicidal ideation. Pt was following her psychiatrist, Dr. Espinoza Carcamo, but he has since retired and she has not been able to find a new psychiatric for follow up. She used to go to [facility] too. Pt appears anxious, tired, and depressed. Pt is not alert to time and place. Pt knows she is in a hospital, but does not know which one. Pt does not know what year or month it is. Pt has a light hand tremor, complains of generalized body discomfort, and lethargy. Pt denies suicidal or homicidal ideations, auditory or visual hallucinations, or paranoia at this time. Past Psych Hx: major depressive disorder, could be bipolar disorder too. She has FEDERICO too. Psych Hosp: Multiple hospitalizations for depression and suicidal attempts - [facility] (2018, 2014, 2013) Fam Psych Hx: one son and one daughter both with bipolar disorder PMH: DM, CAD, asthma, COPD, HTN, Hypercholesterolemia, hypothyroidism, CKD, PE Her DM is uncontrolled and ammonia high! Meds: Trazodone, xanax, buspar Allergies: Moxifloxicin, ceftriaxone Current Medications: Active Medications Generic Name Dose Route Start Last Admin Trade Name Freq PRN Reason Stop Dose Admin Albuterol/Ipratropium 3 ml 10/17/18 16:00 Duoneb 3 Mg/0.5 Mg (3 Ml) Ud INH RQ4 JESSE Clonidine HCl 0.1 mg 10/16/18 23:47 10/17/18 00:05 Catapres PO 0.1 mg Q4H PRN Administration Symptoms of alcohol withdrawl Dextrose 0 ml 10/17/18 10:07 Dextrose 50% Inj IV STAT PRN Hypoglycemia Protocol Protocol Dextrose 0 gm 10/17/18 10:07 Glutose 15 PO ONCE PRN Hypoglycemia Protocol Protocol Dicyclomine HCl 10 mg 10/16/18 23:49 Bentyl PO Q6 PRN Muscle spasm Folic Acid 1 mg 10/17/18 10:00 10/17/18 09:21 Folic Acid PO 1 mg DAILY JESSE Administration Glucagon 0 mg 10/17/18 10:07 Glucagen Diagnostic Kit IM STAT PRN Hypoglycemia Protocol Protocol Home Med 1,000 mg 10/17/18 18:00 Metformin [Glucophage] PO BID JESSE Hydroxyzine HCl 25 mg 10/16/18 23:47 10/17/18 00:04 Atarax PO 25 mg Q6 PRN Administration Anxiety Dextrose 1,000 mls @ 0 mls/hr 10/17/18 10:07 Dextrose 5% In Water 1000 Ml IV .Q0M PRN Hypoglycemia Protocol Protocol Per Protocol Ibuprofen 600 mg 10/16/18 23:48 Motrin Tab PO Q6 PRN Pain, moderate (4-7) Insulin Human Regular 0 unit 10/17/18 16:30 Novolin R SC ACHS JESSE Protocol Lactulose 20 gm 10/17/18 22:00 Enulose PO HS JESSE Lorazepam 2 mg 10/16/18 23:45 10/17/18 11:23 Ativan PO 10/21/18 23:44 2 mg Q6H JESSE Administration Taper Lorazepam 1 mg 10/16/18 23:47 Ativan PO Q4H PRN Symptoms of alcohol withdrawl Mirtazapine 15 mg 10/17/18 22:00 Remeron PO HS JESSE Multivitamins 1 tab 10/17/18 10:00 10/17/18 09:21 Hexavitamin PO 1 tab DAILY JESSE Administration Thiamine HCl 100 mg 10/17/18 10:00 10/17/18 09:21 Vitamin B1 Tab PO 100 mg DAILY JESSE Administration Trazodone HCl 50 mg 10/16/18 23:47 10/17/18 00:04 Desyrel PO 50 mg HS PRN Administration Insomnia Past Psychiatric History - Past Psychiatric History Previous Treatment History: Intensive Outpatient Pertinent Medical Hx (Current Medical&Sleep Prob, Allergies): Allergies Allergy/AdvReac Type Severity Reaction Status Date / Time ceftriaxone Allergy Intermediate RASH Verified 10/16/18 15:59 moxifloxacin HCl Allergy Intermediate RASH Verified 10/16/18 15:59 [From Avelox] metFORMIN [glucOPHAGE] 500 mg PO BID #60 tab 02/08/18 Enalapril Maleate [Vasotec] 2.5 mg PO DAILY #30 tab 03/17/18 Spironolactone [Aldactone] 12.5 mg PO BID #30 tab 03/17/18 Thiamine [Vitamin B1 Tab] 100 mg PO DAILY #30 tab 03/17/18 Pantoprazole Sodium [Protonix] 40 mg PO DAILY #15 ect 05/09/18 Losartan [Cozaar] 25 mg PO DAILY 05/12/18 Sertraline [Zoloft] 50 mg PO DAILY 05/12/18 Alprazolam [Xanax] 0.5 mg PO BID #10 tablet 05/14/18 Montelukast [Singulair] 10 mg PO HS 30 Days tab 06/05/18 Pyridoxine [Vitamin B6] 100 mg PO DAILY 06/10/18 Albuterol/Ipratropium [Duoneb 3 mg/0.5 mg (3 ml) UD] 3 ml INH RQ4 neb 06/23/18 Glucose Meter [Blood Glucose Monitoring System] 1 dev XX PRN PRN #1 dev 06/23/18 Lancets/Blood Glucose Strips [Fora [id number] Strp-Lnct] 1 each TID #2 combo..pkg 06/23/18 predniSONE [Prednisone] 10 mg PO DAILY #7 tab 06/23/18 traZODone [Desyrel] 50 mg PO HS 30 Days #15 tab 06/23/18 Ondansetron ODT [Zofran ODT] 4 mg PO Q6 PRN #20 odt 07/10/18 Nitrofurantoin Macrocrystals [Macrobid] 1 cap PO BID #14 cap 10/04/18 MetFORMIN [glucoPHAGE] 1,000 mg PO BID #60 tab 10/14/18 Review of Systems - Neurological Neurological: Memory Loss, Tremor, Weakness - Psychiatric Psychiatric: Abnormal Sleep Pattern, Anhedonia, Anxiety, Depression, Difficulty Concentrating, Memory Loss, Mood Swings, Panic Attacks. absent: Homicidal Ideation, Irritability, Paranoia, Suicidal Ideation Mental Status Examination - Personal Presentation Personal Presentation: Looks older than stated age (unkempt) - Affect Affect: Constricted - Motor Activity Motor Activity: Calm - Reliability in Providing Information Reliability in Providing Information: Poor, due to cognitve impairment - Speech Speech: Organized (slowed) - Mood Mood: Depressed, Anxious - Formal Thought Process Formal Thought Process: No Impairment - Cognitive Functions Orientation: Person, Place Sensorium: Drowsy Attention/Concentration: Easily distracted Abstract Thinking: [place] Estimate of Intelligence: Below average Judgement: Intact, as evidence by: Insight regarding need for hospitalization Memory: Recent impaired, as evidence by: Inability to recall events of the day, Remote impaired as evidenced by: Inability to recall sig life events - Risk Risk: Withdrawal, Diminished functioning - Strength & Assets Inventory Strength & Assets Inventory: Family support - Limitations Limitations: Other DSM 5 DX - DSM 5 DSM 5 Diagnosis: Alcohol withdrawal, complicated Alcohol use d/o - severe Alcohol-induced cognitive deficits r/o Alcohol-induced dementia starting Major depressive d/o - recurrent, moderate FEDERICO - Recommended/Plan of Treatment Treatment Recommendations and Plan of Treatment: Taper with Ativan b/c her liver is impaired Start Folic Acid, Thiamine, Multivitamins Remeron for depression Gabapentin for augmentation Insulin for DM - Medicine consulted Jose Armando for COPD and asthma As needed medications Clonidine, Atarax, Bentyl, Motrin, and Zofran All risks, benefits and alternatives of the meds discussed, and the pt agreed and understood. Attend groups and activities Supportive therapy and psychoeducation [place] for abstinence CBT for relapse prevention Encourage MAT Refer to rehab or IOP, and self-help groups Teach healthy lifestyle methods, i.e. diet, exercise, meditation Smoking cessation with [place] Nicotine patch if needed 34 min Projected ELOS: 6 days Prognosis: fair
[2018-10-17] MEDS: Albuterol-Ipratrop 3 mg / 0.5 (3 ml) UD INH SCH ×2 (16:08→20:14)
[2018-10-17] MEDS: (Novolin R) Insulin Human Regular 100 units/ml vial SC SCH ×2 (17:03→21:25)
[2018-10-17] MEDS: Pantoprazole 40 mg EC Tab PO SCH (18:44)
[2018-10-18] MEDS: Albuterol-Ipratrop 3 mg / 0.5 (3 ml) UD INH SCH ×6 (01:12→19:32)
--- NOTE | 2018-10-18 07:33 | CP.PCM.PN ---
Subjective - Date & Time of Evaluation Date of Evaluation: 10/18/18 Time of Evaluation: 08:50 - Subjective Subjective: Patient examined at bedside. No acute events overnight. Patient has not received any nebulizer treatments as ordered despite scheduled frequency as notes indicate patient was sleeping; patient requests treatment. Patient denies complaints including chest pain, nausea, vomiting. Patient reports she has been eating well and was once again counseled on healthy eating choices and avoiding high sugar juices. Objective - Vital Signs/Intake and Output Vital Signs (last 24 hours): Temp Pulse Resp BP Pulse Ox 97.6 F 96 H 18 105/66 96 10/18/18 06:29 10/18/18 06:29 10/18/18 06:29 10/18/18 06:29 10/18/18 06:29 - Medications Medications: Current Medications Albuterol/Ipratropium (Duoneb 3 Mg/0.5 Mg (3 Ml) Ud) 3 ml INH RQ4 JESSE Last Admin: 10/18/18 04:48 Dose: Not Given Clonidine HCl (Catapres) 0.1 mg PO Q4H PRN PRN Reason: Symptoms of alcohol withdrawl Last Admin: 10/17/18 17:04 Dose: 0.1 mg Dextrose (Dextrose 50% Inj) 0 ml IV STAT PRN; Protocol PRN Reason: Hypoglycemia Protocol Dextrose (Glutose 15) 0 gm PO ONCE PRN; Protocol PRN Reason: Hypoglycemia Protocol Dicyclomine HCl (Bentyl) 10 mg PO Q6 PRN PRN Reason: Muscle spasm Folic Acid (Folic Acid) 1 mg PO DAILY [facility] Last Admin: 10/17/18 09:21 Dose: 1 mg Glucagon (Glucagen Diagnostic Kit) 0 mg IM STAT PRN; Protocol PRN Reason: Hypoglycemia Protocol Hydroxyzine HCl (Atarax) 25 mg PO Q6 PRN PRN Reason: Anxiety Last Admin: 10/17/18 00:04 Dose: 25 mg Dextrose (Dextrose 5% In Water 1000 Ml) 1,000 mls @ 0 mls/hr IV .Q0M PRN; Protocol PRN Reason: Hypoglycemia Protocol Ibuprofen (Motrin Tab) 600 mg PO Q6 PRN PRN Reason: Pain, moderate (4-7) Insulin Human Regular (Novolin R) 0 unit SC ACHS [facility]; Protocol Last Admin: 10/17/18 21:25 Dose: Not Given Lactulose (Enulose) 20 gm PO HS [facility] Last Admin: 10/17/18 21:29 Dose: 20 gm Lorazepam (Ativan) 1 mg PO Q4H [facility]; Taper Stop: 10/21/18 23:44 Last Admin: 10/18/18 04:10 Dose: Not Given Lorazepam (Ativan) 1 mg PO Q4H PRN PRN Reason: Symptoms of alcohol withdrawl Last Admin: 10/17/18 17:05 Dose: 1 mg Metformin HCl (Glucophage) 1,000 mg PO BIDCC [facility] Last Admin: 10/17/18 17:04 Dose: 1,000 mg Mirtazapine (Remeron) 15 mg PO [facility] Last Admin: 10/17/18 21:36 Dose: 15 mg Multivitamins (Hexavitamin) 1 tab PO DAILY [facility] Last Admin: 10/17/18 09:21 Dose: 1 tab Pantoprazole Sodium (Protonix Ec Tab) 40 mg PO DAILY [facility] Last Admin: 10/17/18 18:44 Dose: 40 mg Thiamine HCl (Vitamin B1 Tab) 100 mg PO DAILY [facility] Last Admin: 10/17/18 09:21 Dose: 100 mg Trazodone HCl (Desyrel) 50 mg PO HS PRN PRN Reason: Insomnia Last Admin: 10/17/18 21:29 Dose: 50 mg - Labs Labs: 10/16/18 16:51 10/17/18 05:42 - Additional Findings Additional findings: - Constitutional Appears: Non-toxic, No Acute Distress - Head Exam Head Exam: ATRAUMATIC, NORMAL INSPECTION, NORMOCEPHALIC - Eye Exam Eye Exam: EOMI, Normal appearance Pupil Exam: PERRL - ENT Exam ENT Exam: Mucous Membranes Moist, Normal Exam - Neck Exam Neck exam: Positive for: Normal Inspection - Respiratory Exam Respiratory Exam: Wheezes, NORMAL BREATHING PATTERN. absent: Respiratory Distress - Cardiovascular Exam Cardiovascular Exam: REGULAR RHYTHM, Systolic Murmur (holosystolic) - GI/Abdominal Exam GI & Abdominal Exam: Normal Bowel Sounds, Soft. absent: Distended, Tenderness - Extremities Exam Extremities exam: Positive for: normal inspection. Negative for: calf tenderness, pedal edema - Neurological Exam Neurological exam: Alert, Oriented x3 - Psychiatric Exam Psychiatric exam: Normal Affect, Normal Mood - Skin Skin Exam: Dry, Intact, Normal Color, Warm Assessment and Plan - Assessment and Plan (Free Text) Assessment: 68 year old female admitted for alcohol detox, medicine consulted for glucose ma nagement Plan: Uncontrolled DM2 -hbg A1C 13.0 -UA glucose 3+, ketones 1+ -accuchecks achs -ISS achs high dose -hypoglycemic protocol -switch to diabetic diet -counseled pt on healthy eating choices, avoiding sugary juices -resume home metformin 1000mg po BID -starting levemir 10U daily COPD -duonebs q4 scheduled, change to prn after several treatments Hyperammonemia -ammonia 68, down from 71(10/17) -increase lactulose 20mg to BID from HS -continue to trend Alcohol abuse -ativan, folate, multivitamins, B1 -management per primary Discussed with Dr. Darrell Harvey, PGY-1
[2018-10-18] MEDS: (Novolin R) Insulin Human Regular 100 units/ml vial SC SCH ×4 (08:24→21:04)
[2018-10-18 08:44] LABS: BASO # 0.1 K/uL (0.0-0.2); EOS # 0.2 K/uL (0.0-0.7); HEMOGLOBIN 13.2 g/dL (11.0-16.0); LYMPH # 1.4 K/uL (1.0-4.3); MEAN CELL VOLUME 93.9 fL (81.0-99.0); MEAN CORPUSCULAR HEMOGLOBIN 30.2 pg (27.0-31.0); MEAN CORPUSCULAR HGB CONC 32.1 g/dL (33.0-37.0); MEAN PLATELET VOLUME 9.8 fL (7.2-11.7); MONO # 0.5 K/uL (0.0-0.8); MONO % 10.7 % (0.0-10.0); NEUT # 2.9 K/uL (1.8-7.0); NEUT % 57.3 % (50.0-75.0); RBC 4.39 Mil/uL (3.80-5.20); RED CELL DISTRIBUTION WIDTH 15.5 % (11.5-14.5)
[2018-10-18 08:57] LABS: ALB/GLOB RATIO 0.9 (1.0-2.1); ALBUMIN 3.6 g/dL (3.5-5.0); ALT/SGPT 65 U/L (9-52); AST/SGOT 121 U/L (14-36); BLOOD UREA NITROGEN 13 mg/dL (7-17); CALCIUM 8.8 mg/dl (8.6-10.4); GFR NON-AFRICAN AMERICAN > 60
[2018-10-18] MEDS: Pantoprazole 40 mg EC Tab PO SCH (10:10)
[2018-10-18] MEDS: Multiple Vitamins Tab PO SCH (10:10)
--- NOTE | 2018-10-18 11:42 | PCM.PYCHPN ---
Psychiatric Progress Note - Psychiatric Progress Note Patient seen today, length of contact: 15 min Patient Chief Complaint: I am withdrawing badly Problems Identified/Issues Discussed: Patient was seen and evaluated, chart reviewed and discussed with staff. Patient reports withdrawal symptoms including nausea, anxiety, headaches, cramps and sweating. He reports irritable mood but denies any feelings of hopelessness or helplessness. He denies any suicidal ideation or any homicidal ideation. He denies any auditory hallucinations or any paranoia. He is taking medication but denies any side effects. Supportive therapy was given Medication Change: Yes Medical Record Reviewed: Yes Mental Status Examination - Cognitive Function Orientation: Person, Place Memory: Intact Attention: WNL Concentration: Poor Association: WNL Fund of Knowledge: Poor - Mood Mood: Depressed, Anxious - Affect Affect: Constricted - Speech Speech: Soft - Formal Thought Process Formal Thought Process: No Impairment - Suicidal Ideation Suicidal Ideation: No - Homicidal Ideation Homicidal Ideation: No Goal/Treatment Plan - Goal/Treatment Plan Need for Continued Stay: Severe depression anxiety, Severe functional impairment Progress Toward Problem(s) and Goals/Treatment Plan: Alcohol withdrawal, complicated Alcohol use d/o - severe Alcohol-induced cognitive deficits r/o Alcohol-induced dementia starting Major depressive d/o - recurrent, moderate [place]ER[place] Taper with Ativan b/c her liver is impaired Start Folic Acid, Thiamine, Multivitamins Remeron for depression Gabapentin for augmentation Insulin for DM - Medicine consulted Duonebs for COPD and asthma As needed medications Clonidine, Atarax, Bentyl, Motrin, and Zofran All risks, benefits and alternatives of the meds discussed, and the pt agreed and understood. Attend groups and activities Supportive therapy and psychoeducation [place] for abstinence CBT for relapse prevention Encourage MAT Refer to rehab or IOP, and self-help groups Teach healthy lifestyle methods, i.e. diet, exercise, meditation Smoking cessation with [place] Nicotine patch if needed
[2018-10-18] MEDS: Insulin Detemir 100 units/ml Vial (Levemir) SC SCH (11:54)
[2018-10-18] MEDS ORDERED: (Novolin R) Insulin Human Regular 100 units/ml vial SC ONE ×2 (14:06→14:29)
[2018-10-19] MEDS: Albuterol-Ipratrop 3 mg / 0.5 (3 ml) UD INH SCH ×6 (00:30→19:53)
[2018-10-19] MEDS ORDERED: (Novolog) Insulin Aspart, Recombinant 100 u/ml 10 ml vial SC ONE (02:37)
[2018-10-19 07:36] LABS: BASO % 0.8 % (0.0-2.0); EOS # 0.2 K/uL (0.0-0.7); EOS % 4.3 % (0.0-4.0); HEMOGLOBIN 13.3 g/dL (11.0-16.0); LYMPH # 1.2 K/uL (1.0-4.3); LYMPH % 24.3 % (20.0-40.0); MEAN CELL VOLUME 95.3 fL (81.0-99.0); MEAN CORPUSCULAR HEMOGLOBIN 31.6 pg (27.0-31.0); MEAN CORPUSCULAR HGB CONC 33.1 g/dL (33.0-37.0); MEAN PLATELET VOLUME 9.9 fL (7.2-11.7); MONO # 0.6 K/uL (0.0-0.8); MONO % 12.6 % (0.0-10.0); RBC 4.21 Mil/uL (3.80-5.20); RED CELL DISTRIBUTION WIDTH 15.6 % (11.5-14.5); WHITE BLOOD COUNT 5.1 K/uL (4.8-10.8)
[2018-10-19 07:54] LABS: ALBUMIN 3.6 g/dL (3.5-5.0); ALT/SGPT 66 U/L (9-52); AST/SGOT 109 U/L (14-36); BLOOD UREA NITROGEN 13 mg/dL (7-17); GFR NON-AFRICAN AMERICAN > 60
[2018-10-19] MEDS: (Novolin R) Insulin Human Regular 100 units/ml vial SC SCH ×4 (08:05→21:10)
[2018-10-19] MEDS: Multiple Vitamins Tab PO SCH (10:35)
[2018-10-19] MEDS: Pantoprazole 40 mg EC Tab PO SCH (10:35)
[2018-10-19] MEDS: Insulin Detemir 100 units/ml Vial (Levemir) SC SCH (10:36)
--- NOTE | 2018-10-19 16:20 | PCM.PYCHPN ---
Psychiatric Progress Note - Psychiatric Progress Note Patient seen today, length of contact: 15 min Patient Chief Complaint: I am feeling little better. Problems Identified/Issues Discussed: Patient seen, chart reviewed, case discussed with the staff. Issues related to illness and treatment were discussed with the patient and staff. Reported compliant with treatment with no adverse effects. Tolerating treatment very well. Patient reported feeling little better with the treatment, stated has some withdrawal symptoms including body aches, shaking, sweating, sleeping difficulty and anxiety. Mood reported as Anxious. Affect appropriate. Patient was awake, alert and oriented x3. Calm and cooperative. Aftercare discussed with the patient. Medical team is on case for uncontrolled diabetes mellitus. Patient denied any delusions, no auditory or visual hallucinations, no suicidal ideations or homicidal ideations at the time of evaluation. Medical Problems: Hypertension Diabetes mellitus Coronary artery disease Asthma COPD Hypercholesterolemia Hypothyroidism History of pulmonary embolism CKD Medication Change: No Medical Record Reviewed: Yes Consults ordered or reviewed: Reviewed Mental Status Examination - Cognitive Function Orientation: Person, Place, Situation, Time Memory: Intact Attention: WNL Concentration: WNL Association: [facility] Fund of Knowledge: [facility] Decription of patient's judgement and insights: Fair - Mood Mood: Anxious - Affect Affect: Other (Appropriate) - Speech Speech: Soft - Formal Thought Process Formal Thought Process: No Impairment Psychotic Thoughts and Behaviors: None - Suicidal Ideation Suicidal Ideation: No - Homicidal Ideation Homicidal Ideation: No Goal/Treatment Plan - Goal/Treatment Plan Need for Continued Stay: Remain at risks for inpatient hospitalization, Di jeffge may exacerbated symptoms, Severe functional impairment Progress Toward Problem(s) and Goals/Treatment Plan: Patient education. Supportive therapy. CBT for relapse prevention. ME for abstinence. Continue treatment as before. Estimated Date of D/C: 10/22/18 - Smoking Cessation Smoking Cessation Initiated: No
[2018-10-19] MEDS ORDERED: Insulin Detemir 100 units/ml Vial (Levemir) SC SCH (17:45)
--- NOTE | 2018-10-19 17:48 | CP.PCM.PN ---
Subjective - Date & Time of Evaluation Date of Evaluation: 10/19/18 Time of Evaluation: 17:45 - Subjective Subjective: PGY-1 Medicine Progress Note for Dr. Ramírez's service S/E at bedside. Offers no acute complaints. Denies fevers, chills, chest pain, sob, n/v, constipation or diarrhea, and dysuria. Objective - Vital Signs/Intake and Output Vital Signs (last 24 hours): Temp Pulse Resp BP Pulse Ox 97.6 F 110 H 18 109/75 95 10/19/18 17:02 10/19/18 17:02 10/19/18 17:02 10/19/18 17:02 10/19/18 17:02 - Medications Medications: Current Medications Albuterol/Ipratropium (Duoneb 3 Mg/0.5 Mg (3 Ml) Ud) 3 ml INH RQ4 JESSE Last Admin: 10/19/18 15:51 Dose: 3 ml Clonidine HCl (Catapres) 0.1 mg PO Q4H PRN PRN Reason: Symptoms of alcohol withdrawl Last Admin: 10/17/18 17:04 Dose: 0.1 mg Dextrose (Dextrose 50% Inj) 0 ml IV STAT PRN; Protocol PRN Reason: Hypoglycemia Protocol Dextrose (Glutose 15) 0 gm PO ONCE PRN; Protocol PRN Reason: Hypoglycemia Protocol Dicyclomine HCl (Bentyl) 10 mg PO Q6 PRN PRN Reason: Muscle spasm Folic Acid (Folic Acid) 1 mg PO DAILY [facility] Last Admin: 10/19/18 10:35 Dose: 1 mg Glucagon (Glucagen Diagnostic Kit) 0 mg IM STAT PRN; Protocol PRN Reason: Hypoglycemia Protocol Hydroxyzine HCl (Atarax) 25 mg PO Q6 PRN PRN Reason: Anxiety Last Admin: 10/17/18 00:04 Dose: 25 mg Dextrose (Dextrose 5% In Water 1000 Ml) 1,000 mls @ 0 mls/hr IV .Q0M PRN; Pro tocol PRN Reason: Hypoglycemia Protocol Ibuprofen (Motrin Tab) 600 mg PO Q6 PRN PRN Reason: Pain, moderate (4-7) Insulin Human Regular (Novolin R) 0 unit SC ACHS JESSE; Protocol Last Admin: 10/19/18 16:26 Dose: 8 units Lactulose (Enulose) 20 gm PO BID [facility] Last Admin: 10/19/18 16:59 Dose: 20 gm Lorazepam (Ativan) 1 mg PO Q6H [facility]; Taper Stop: 10/21/18 23:44 Last Admin: 10/19/18 16:58 Dose: 1 mg Lorazepam (Ativan) 1 mg PO Q4H PRN PRN Reason: Symptoms of alcohol withdrawl Last Admin: 10/17/18 17:05 Dose: 1 mg Metformin HCl (Glucophage) 1,000 mg PO BIDCC [facility] Last Admin: 10/19/18 16:36 Dose: 1,000 mg Mirtazapine (Remeron) 15 mg PO HS [facility] Last Admin: 10/18/18 21:04 Dose: 15 mg Multivitamins (Hexavitamin) 1 tab PO DAILY [facility] Last Admin: 10/19/18 10:35 Dose: 1 tab Pantoprazole Sodium (Protonix Ec Tab) 40 mg PO DAILY [facility] Last Admin: 10/19/18 10:35 Dose: 40 mg Thiamine HCl (Vitamin B1 Tab) 100 mg PO DAILY [facility] Last Admin: 10/19/18 10:35 Dose: 100 mg Trazodone HCl (Desyrel) 50 mg PO HS PRN PRN Reason: Insomnia Last Admin: 10/17/18 21:29 Dose: 50 mg - Labs Labs: 10/19/18 07:23 10/19/18 07:23 - Constitutional Appears: Non-toxic, No Acute Distress - Head Exam Head Exam: NORMAL INSPECTION, NORMOCEPHALIC - Eye Exam Eye Exam: EOMI, Normal appearance. absent: Nystagmus, Scleral icterus - ENT Exam ENT Exam: absent: Mucous Membranes Dry - Respiratory Exam Respiratory Exam: Clear to Ausculation Bilateral, NORMAL BREATHING PATTERN. absent: Rales, Rhonchi, Wheezes - Cardiovascular Exam Cardiovascular Exam: REGULAR RHYTHM, +S1, +S2. absent: Tachycardia - GI/Abdominal Exam GI & Abdominal Exam: Soft, Normal Bowel Sounds. absent: Distended, Firm, Guarding, Rigid, Tenderness - Extremities Exam Extremities Exam: Normal Inspection. absent: Calf Tenderness, Pedal Edema - Neurological Exam Neurological Exam: Alert, Awake, Oriented x3 - Psychiatric Exam Psychiatric exam: Normal Affect, Normal Mood - Skin Skin Exam: Dry, Intact, Normal Color Assessment and Plan - Assessment and Plan (Free Text) Assessment: 68 year old female admitted for alcohol detox, medicine consulted for glucose management Uncontrolled DM2 -hbg A1C 13.0 -UA glucose 3+, ketones 1+ -accuchecks achs -ISS achs high dose -hypoglycemic protocol -switch to diabetic diet -counseled pt on healthy eating choices, avoiding sugary juices -resume home metformin 1000mg po BID -increased lantus to 20units daily -goal of sugars <200 COPD -duonebs q4 scheduled, change to prn after several treatments Hyperammonemia -ammonia 68, down from 71(10/17) -increase lactulose 20mg to BID from HS -continue to trend Alcohol abuse -ativan, folate, multivitamins, B1 -management per primary Discussed with Dr. Darrell Salmeron, PGY-1
[2018-10-20] MEDS: Albuterol-Ipratrop 3 mg / 0.5 (3 ml) UD INH SCH ×4 (01:00→11:37)
[2018-10-20] MEDS ORDERED: (Novolin R) Insulin Human Regular 100 units/ml vial SC STA (02:29)
[2018-10-20] MEDS: (Novolin R) Insulin Human Regular 100 units/ml vial SC SCH ×6 (07:51→21:14)
[2018-10-20 08:34] LABS: EOS # 0.2 K/uL (0.0-0.7); EOS % 3.7 % (0.0-4.0); HEMOGLOBIN 13.6 g/dL (11.0-16.0); LYMPH # 1.7 K/uL (1.0-4.3); LYMPH % 31.9 % (20.0-40.0); MEAN CELL VOLUME 94.7 fL (81.0-99.0); MEAN CORPUSCULAR HEMOGLOBIN 31.6 pg (27.0-31.0); MEAN CORPUSCULAR HGB CONC 33.3 g/dL (33.0-37.0); MEAN PLATELET VOLUME 10.1 fL (7.2-11.7); MONO # 0.7 K/uL (0.0-0.8); MONO % 13.3 % (0.0-10.0); NEUT # 2.6 K/uL (1.8-7.0); NEUT % 50.1 % (50.0-75.0); NRBC % 0.1 % (0.0-2.0); RBC 4.3 Mil/uL (3.80-5.20); RED CELL DISTRIBUTION WIDTH 15.8 % (11.5-14.5); WHITE BLOOD COUNT 5.2 K/uL (4.8-10.8)
[2018-10-20 09:08] LABS: ALBUMIN 3.7 g/dL (3.5-5.0); ALT/SGPT 69 U/L (9-52); AST/SGOT 125 U/L (14-36); BLOOD UREA NITROGEN 10 mg/dL (7-17); CALCIUM 9.3 mg/dl (8.6-10.4); GFR NON-AFRICAN AMERICAN > 60
[2018-10-20] MEDS: Pantoprazole 40 mg EC Tab PO SCH (09:41)
[2018-10-20] MEDS: Multiple Vitamins Tab PO SCH (09:41)
--- NOTE | 2018-10-20 12:25 | CP.PCM.PN ---
Subjective - Date & Time of Evaluation Date of Evaluation: 10/20/18 Time of Evaluation: 07:50 - Subjective Subjective: Medicine progress note ( Dr. Ramírez's service) Patient was seen and examined at bedside, while resting in bed comfortably. Patient denies any symptoms of chills, fever, chest pain, palpitations, shortness of breath, dizziness, lightheadedness or abdominal pain. Patient denies any acute issues. Objective - Vital Signs/Intake and Output Vital Signs (last 24 hours): Temp Pulse Resp BP Pulse Ox 97.8 F 100 H 18 111/76 96 10/20/18 09:00 10/20/18 09:00 10/20/18 09:00 10/20/18 09:00 10/20/18 09:00 - Medications Medications: Current Medications Albuterol/Ipratropium (Duoneb 3 Mg/0.5 Mg (3 Ml) Ud) 3 ml INH RQ4 JESSE Last Admin: 10/20/18 11:37 Dose: 3 ml Clonidine HCl (Catapres) 0.1 mg PO Q4H PRN PRN Reason: Symptoms of alcohol withdrawl Last Admin: 10/17/18 17:04 Dose: 0.1 mg Dextrose (Dextrose 50% Inj) 0 ml IV STAT PRN; Protocol PRN Reason: Hypoglycemia Protocol Dextrose (Glutose 15) 0 gm PO ONCE PRN; Protocol PRN Reason: Hypoglycemia Protocol Dicyclomine HCl (Bentyl) 10 mg PO Q6 PRN PRN Reason: Muscle spasm Folic Acid (Folic Acid) 1 mg PO DAILY [facility] Last Admin: 10/20/18 09:41 Dose: 1 mg Glucagon (Glucagen Diagnostic Kit) 0 mg IM STAT PRN; Protocol PRN Reason: Hypoglycemia Protocol Hydroxyzine HCl (Atarax) 25 mg PO Q6 PRN PRN Reason: Anxiety Last Admin: 10/20/18 00:18 Dose: 25 mg Dextrose (Dextrose 5% In Water 1000 Ml) 1,000 mls @ 0 mls/hr IV .Q0M PRN; Protocol PRN Reason: Hypoglycemia Protocol Ibuprofen (Motrin Tab) 600 mg PO Q6 PRN PRN Reason: Pain, moderate (4-7) Insulin Detemir (Levemir) 20 unit SC [facility] Insulin Human Regular (Novolin R) 7 unit SC ACHS [facility] Lactulose (Enulose) 20 gm PO BID [facility] Last Admin: 10/20/18 09:41 Dose: 20 gm Lorazepam (Ativan) 1 mg PO Q12 [facility]; Taper Stop: 10/21/18 23:44 Last Admin: 10/20/18 09:54 Dose: 1 mg Lorazepam (Ativan) 1 mg PO Q4H PRN PRN Reason: Symptoms of alcohol withdrawl Last Admin: 10/20/18 02:37 Dose: 1 mg Metformin HCl (Glucophage) 1,000 mg PO BIDCC [facility] Last Admin: 10/20/18 07:49 Dose: 1,000 mg Mirtazapine (Remeron) 15 mg PO HS [facility] Last Admin: 10/19/18 21:11 Dose: 15 mg Multivitamins (Hexavitamin) 1 tab PO DAILY [facility] Last Admin: 10/20/18 09:41 Dose: 1 tab Pantoprazole Sodium (Protonix Ec Tab) 40 mg PO DAILY [facility] Last Admin: 10/20/18 09:41 Dose: 40 mg Thiamine HCl (Vitamin B1 Tab) 100 mg PO DAILY [facility] Last Admin: 10/20/18 09:41 Dose: 100 mg Trazodone HCl (Desyrel) 50 mg PO HS PRN PRN Reason: Insomnia Last Admin: 10/19/18 21:11 Dose: 50 mg - Labs Labs: 10/20/18 08:24 10/20/18 08:24 - Constitutional Appears: No Acute Distress - Head Exam Head Exam: ATRAUMATIC, NORMAL INSPECTION - Eye Exam Eye Exam: EOMI, Normal appearance - ENT Exam ENT Exam: Mucous Membranes Moist - Respiratory Exam Respiratory Exam: Clear to Ausculation Bilateral, NORMAL BREATHING PATTERN. absent: Chest Wall Tenderness, Decreased Breath Sounds, Prolonged Expiratory Phase, Rhonchi, Wheezes - Cardiovascular Exam Cardiovascular Exam: REGULAR RHYTHM, +S1, +S2, Murmur - GI/Abdominal Exam GI & Abdominal Exam: Soft, Normal Bowel Sounds. absent: Distended, Firm, Guarding, Rigid, Tenderness - Extremities Exam Extremities Exam: Normal Inspection. absent: Calf Tenderness, Full ROM, Joint Swelling, Pedal Edema, Tenderness - Neurological Exam Neurological Exam: Alert, Awake, Oriented x3 - Psychiatric Exam Psychiatric exam: Normal Affect - Skin Skin Exam: Normal Color Assessment and Plan (1) Uncontrolled diabetes mellitus Assessment & Plan: Patient is a 68 year old female admitted for alcohol detox currently being management psychiatrist, Dr. Patterson, medicine consultation was placed for uncontrolled diabetes: Labs: -HgbA1C: 13.0 -UA glucose 3+, ketones 1+ - Accuchecks - Based on 48 hours insulin sliding scale need; insulin need was recalculated into long acting and short acting need * Levemir 40 units daily need: 20 units in the morning and 20 units at night * Insulin regular 7 units ACHS * Metformin 1,000mg PO BID * ISS- Low dose * Diabetic diet * Goal of sugar, < or = 200 Status: Acute (2) Hyperammonemia Assessment & Plan: Downtrending Lactulose 20mg PO BID Continue to monitor with labs Status: Acute (3) COPD (chronic obstructive pulmonary disease) Assessment & Plan: Duonebs 3ML INH RQ4 PRN Status: Acute (4) Alcohol abuse Assessment & Plan: Detox as per psychiatry, Dr. Patterson * Management as per recommendation Status: Acute (5) Prophylactic measure Assessment & Plan: GI: Protonix 40mg PO daily Disposition: Patient needs to follow up with staff educator outpatient Patient needs to follow up with PMD for diabetic management All plans and management discussed with Dr. Ramírez Status: Acute
[2018-10-20] MEDS ORDERED: Albuterol-Ipratrop 3 mg / 0.5 (3 ml) UD INH PRN (12:40)
[2018-10-20] MEDS ORDERED: (Novolin R) Insulin Human Regular 100 units/ml vial SC ONE (17:32)
[2018-10-20] MEDS: Insulin Detemir 100 units/ml Vial (Levemir) SC SCH (21:14)
[2018-10-20] MEDS ORDERED: Insulin Detemir 100 units/ml Vial (Levemir) SC SCH (22:00)
[2018-10-21] MEDS: (Novolin R) Insulin Human Regular 100 units/ml vial SC SCH ×4 (08:21→12:21)
[2018-10-21 08:57] LABS: BASO % 0.9 % (0.0-2.0); EOS # 0.2 K/uL (0.0-0.7); EOS % 4.8 % (0.0-4.0); HEMOGLOBIN 13.7 g/dL (11.0-16.0); LYMPH # 1.8 K/uL (1.0-4.3); LYMPH % 35.5 % (20.0-40.0); MEAN CELL VOLUME 94.9 fL (81.0-99.0); MEAN CORPUSCULAR HGB CONC 32.7 g/dL (33.0-37.0); MEAN PLATELET VOLUME 10.1 fL (7.2-11.7); MONO # 0.7 K/uL (0.0-0.8); MONO % 13.9 % (0.0-10.0); NEUT # 2.3 K/uL (1.8-7.0); NEUT % 44.9 % (50.0-75.0); NRBC % 0.1 % (0.0-2.0); RBC 4.41 Mil/uL (3.80-5.20)
[2018-10-21 09:07] VITALS: PULSE 102
[2018-10-21 09:17] LABS: ALBUMIN 3.6 g/dL (3.5-5.0); ALT/SGPT 85 U/L (9-52); AST/SGOT 149 U/L (14-36); BLOOD UREA NITROGEN 11 mg/dL (7-17); CALCIUM 9.4 mg/dl (8.6-10.4); GFR NON-AFRICAN AMERICAN > 60
[2018-10-21] MEDS: Pantoprazole 40 mg EC Tab PO SCH (09:40)
[2018-10-21] MEDS: Multiple Vitamins Tab PO SCH (09:40)
[2018-10-21] MEDS: Insulin Detemir 100 units/ml Vial (Levemir) SC SCH (09:40)
[2018-10-21 13:03] VITALS: BP 103/71; RESP 20; TEMP 98.1; O2SAT 96
--- NOTE | 2018-10-21 15:44 | CP.PCM.PN ---
Objective - Vital Signs/Intake and Output Vital Signs (last 24 hours): Temp Pulse Resp BP Pulse Ox 98.1 F 102 H 20 103/71 96 10/21/18 13:02 10/21/18 13:02 10/21/18 13:02 10/21/18 13:02 10/21/18 13:02 - Labs Labs: 10/21/18 08:52 10/21/18 08:52 Assessment and Plan (1) Uncontrolled diabetes mellitus Status: Acute (2) Hyperammonemia Status: Acute (3) COPD (chronic obstructive pulmonary disease) Status: Acute (4) Alcohol abuse Status: Acute (5) Prophylactic measure Status: Acute
== END 2018-10-21 14:10 | disposition home or self-care (01) | DRG 895 ==
LOC: C.ER 15:47 → C.9E 21:55 → C.7D 22:32
PROVIDERS: ADMIT Psychiatry & Neurology Psychiatry; ATTEND Psychiatry & Neurology Psychiatry
PROC: HZ2ZZZZ Detoxification Services for Substance Abuse Treatment (ICD-10-PCS; principal; 2018-10-16)
PROC: HZ59ZZZ Individual Psychotherapy for Substance Abuse Treatment, Supportive (ICD-10-PCS; 2018-10-16)
PROC: HZ46ZZZ Group Counseling for Substance Abuse Treatment, Psychoeducation (ICD-10-PCS; 2018-10-16)
PROC: GZ3ZZZZ Medication Management (ICD-10-PCS; 2018-10-16)
DX: F10.239 Alcohol dependence with withdrawal, unspecified (principal); F33.1 Major depressive disorder, recurrent, moderate; F10.27 Alcohol dependence with alcohol-induced persisting dementia; F41.1 Generalized anxiety disorder; F17.210 Nicotine dependence, cigarettes, uncomplicated; E11.65 Type 2 diabetes mellitus with hyperglycemia; E72.20 Disorder of urea cycle metabolism, unspecified; E11.22 Type 2 diabetes mellitus with diabetic chronic kidney disease; I12.9 Hypertensive chronic kidney disease with stage 1 through stage 4 chronic kidney disease, or unspecified chronic kidney disease; E03.9 Hypothyroidism, unspecified; I25.10 Atherosclerotic heart disease of native coronary artery without angina pectoris; J44.9 Chronic obstructive pulmonary disease, unspecified; F31.9 Bipolar disorder, unspecified; N18.9 Chronic kidney disease, unspecified; K21.9 Gastro-esophageal reflux disease without esophagitis; M81.0 Age-related osteoporosis without current pathological fracture; E78.00 Pure hypercholesterolemia, unspecified; Z79.84 Long term (current) use of oral hypoglycemic drugs; Z91.5 Personal history of self-harm; Z86.711 Personal history of pulmonary embolism; Z90.49 Acquired absence of other specified parts of digestive tract; Z95.1 Presence of aortocoronary bypass graft; Z95.5 Presence of coronary angioplasty implant and graft

== ENCOUNTER 2018-10-22 13:15 | Emergency (ER) | payer MEDICARE, MEDICAID ==
[2018-10-22 13:15] VITALS: BMI 28.3
== END 2018-10-22 13:16 | disposition left against medical advice (07) ==
LOC: C.ER 13:15
DX: Z02.89 Encounter for other administrative examinations (principal); F19.10 Other psychoactive substance abuse, uncomplicated

== ENCOUNTER 2018-10-22 21:44 | Emergency (ER) | payer MEDICARE, OTHER ==
[2018-10-22 21:45] VITALS: BMI 28.3
[2018-10-22 22:23] VITALS: O2SAT 97
--- NOTE | 2018-10-22 22:33 | C.PDOC ---
History Of Present Illness 68 year old female is brought to the ED by EMS for alcohol intoxication. Patient is well known to the ED with previous visits with same presentation. Patient admits to drinking alcohol. Patient denies SI/HI, hallucinations, injury, fall, trauma. Time Seen by Provider: 10/22/18 22:33 Chief Complaint (Nursing): Substance Abuse History Per: Patient, EMS History/Exam Limitations: intoxication Onset/Duration Of Symptoms: Hrs Current Symptoms Are (Timing): Still Present Modifying Factor(s): Alcohol Associated Symptoms: denies: Depression, Suicidal Thoughts, Suicidal Plan Recent travel outside of the [place]: No Additional History Per: Patient Past Medical History Reviewed: Historical Data, Nursing Documentation, Vital Signs Vital Signs: Last Vital Signs Temp 98.5 F 10/22/18 22:18 Pulse 98 H 10/22/18 22:18 Resp 20 10/22/18 22:18 BP 105/73 10/22/18 22:18 Pulse Ox 97 10/22/18 22:18 - Medical History PMH: Anemia, Anxiety, Arthritis, Asthma, Bipolar Disorder, Bronchitis, CAD, COPD, Depression, Diabetes, Gastritis, GERD, Hypercholesterolemia, Hypothyroidism, Osteoporosis, Peripheral Edema, Pneumonia, Pulmonary Embolism Denies: Hepatitis, HIV, HTN, Chronic Kidney Disease, Seizures, Sexually Transmitted Disease Surgical History: CABG, Cholecystectomy, Coronary Stent - [facility] Procedures ALCOHOL DETOXIFICATION (03/15/15) EXCISION OF STOMACH, ENDO, DIAGN (05/29/18) FLUOROSCOPY OF MULT COR ART USING L OSM CONTRAST (03/10/18) GROUP PSYCHOTHERAPY (02/03/18) INDIV PSYCHOTHERAPY FOR SUBSTANCE ABUSE, COGNITIV BEHAVIORAL (02/03/18) INDIVID PSYCHOTHERAP NEC (04/14/13) INDIVIDUAL PSYCHOTHERAPY, COGNITIVE-BEHAVIORAL (02/03/18) INTRODUCTION OF ANTI-INFLAM INTO RESP TRACT, VIA OPENING (01/25/17) INTRODUCTION OF SERUM/TOX/VACCINE INTO MUSCLE, PERC APPROACH (09/02/17) MEASURE OF CARDIAC SAMPL & PRESSURE, L HEART, PERC APPROACH (03/10/18) OTHER GROUP THERAPY (04/14/13) PHYSICAL THERAPY NEC (06/12/14) Family History: States: Unknown Family Hx - Social History Hx Tobacco Use: Yes Hx Alcohol Use: Yes Hx Substance Use: Yes - Immunization History Hx Tetanus Toxoid Vaccination: No Hx Influenza Vaccination: No Hx Pneumococcal Vaccination: No Review Of Systems Constitutional: Negative for: Fever, Chills Cardiovascular: Negative for: Chest Pain, Palpitations Respiratory: Negative for: Shortness of Breath Gastrointestinal: Negative for: Vomiting, Abdominal Pain, Diarrhea Skin: Negative for: Rash Neurological: Negative for: Weakness, Numbness Psych: Negative for: Depression, Suicidal ideation Physical Exam - Physical Exam Appears: Non-toxic, No Acute Distress, Other (intoxicated) Skin: Warm, Dry Head: Normacephalic Eye(s): bilateral: Normal Inspection Neck: Supple Chest: Symmetrical Cardiovascular: Rhythm Regular Respiratory: No Rales, No Rhonchi, No Wheezing Gastrointestinal/Abdominal: Soft, No Tenderness, No Guarding, No Rebound Extremity: Bilateral: Atraumatic, Normal Color And Temperature, Normal ROM Neurological/Psych: Oriented x3, Normal Speech, Normal Cognition Gait: Steady ED Course And Treatment - Laboratory Results Result Diagrams: 10/22/18 23:34 10/22/18 23:34 O2 Sat by Pulse Oximetry: 97 (ON RA) Pulse Ox Interpretation: Normal Progress Note: Plan: - VBG. - Labs. - IV fluids. - UA Reevaluation Time: 05:26 Reassessment Condition: Improved Disposition Counseled Patient/Family Regarding: Studies Performed, Diagnosis, Need For Followup - Disposition Referrals: [facility] [Outside] Disposition: HOME/ ROUTINE Disposition Time: 22:33 Condition: FAIR Instructions: Alcohol Abuse and Alcoholism (DC), Hyperglycemia, Adult (DC) Forms: [facility] (Slovenian) Print Language: BULGARIAN - Clinical Impression Clinical Impression: Alcohol abuse, Uncontrolled diabetes mellitus, Alcohol intoxication - Scribe Statement The provider has reviewed the documentation as recorded by the Scribmegan Wolff All medical record entries made by the Scribe were at my direction and pers onally dictated by me. I have reviewed the chart and agree that the record accurately reflects my personal performance of the history, physical exam, medical decision making, and the department course for this patient. I have also personally directed, reviewed, and agree with the discharge instructions and disposition.
[2018-10-22 23:41] LABS: BASO # 0.1 K/uL (0.0-0.2); BASO % 1.4 % (0.0-2.0); EOS # 0.2 K/uL (0.0-0.7); HEMOGLOBIN 12.6 g/dL (11.0-16.0); LYMPH # 2.4 K/uL (1.0-4.3); LYMPH % 46.1 % (20.0-40.0); MEAN CELL VOLUME 95.3 fL (81.0-99.0); MEAN CORPUSCULAR HEMOGLOBIN 31.6 pg (27.0-31.0); MEAN CORPUSCULAR HGB CONC 33.1 g/dL (33.0-37.0); MEAN PLATELET VOLUME 9.4 fL (7.2-11.7); MONO # 0.6 K/uL (0.0-0.8); MONO % 11.7 % (0.0-10.0); NEUT # 1.9 K/uL (1.8-7.0); NEUT % 36.8 % (50.0-75.0); NRBC % 0.1 % (0.0-2.0); RBC 3.98 Mil/uL (3.80-5.20); RED CELL DISTRIBUTION WIDTH 15.9 % (11.5-14.5); WHITE BLOOD COUNT 5.2 K/uL (4.8-10.8)
[2018-10-22 23:59] LABS: ALBUMIN 3.5 g/dL (3.5-5.0); ALT/SGPT 88 U/L (9-52); AST/SGOT 169 U/L (14-36); BLOOD UREA NITROGEN 6 mg/dL (7-17); CALCIUM 8.5 mg/dl (8.6-10.4); GFR NON-AFRICAN AMERICAN > 60
[2018-10-23 00:24] LABS: SQUAMOUS EPITHIAL 1 /hpf (0-5); URINE BACTERIA RARE (<OCC); URINE BILIRUBIN NEGATIVE (NEGATIVE); URINE CLARITY Clear (Clear); URINE COLOR Yellow (YELLOW); URINE GLUCOSE (UA) 3+ mg/dL (Normal); URINE LEUKOCYTE ESTERASE NEG Leu/uL (Negative); URINE PROTEIN NEGATIVE (NEGATIVE); URINE UROBILINOGEN NORMAL mg/dL (0.2-1.0)
[2018-10-23 00:30] LABS: URINE BLOOD NEGATIVE (NEGATIVE)
[2018-10-23 00:38] LABS: BARBITURATES, UR NEGATIVE (NEGATIVE); BENZODIAZEPINES, UR NEGATIVE (NEGATIVE); OPIATES, UR NEGATIVE (NEGATIVE); PHENCYCLIDINE, UR NEGATIVE (NEGATIVE)
[2018-10-23 01:49] LABS: VENOUS BLOOD GAS BASE EXCESS -4.5 mmol/L (0.0-2.0); VENOUS BLOOD GAS PCO2 36 mmHg (40-60); VENOUS BLOOD GAS PO2 66 mm/Hg (30-55); VENOUS BLOOD PH 7.36 (7.32-7.43)
[2018-10-23] MEDS ORDERED: Sodium Chloride 0.9% 1,000 ML IV ONE ×2 (01:50)
[2018-10-23 02:52] VITALS: BP 119/67; PULSE 99; RESP 18; TEMP 97.6
== END 2018-10-23 05:42 | disposition home or self-care (01) ==
LOC: C.ER 21:44
DX: F10.129 Alcohol abuse with intoxication, unspecified (principal); Y90.7 Blood alcohol level of 200-239 mg/100 ml; E11.65 Type 2 diabetes mellitus with hyperglycemia
CPT/HCPCS: 80053; 81001; 82803; 82948; 83735; 84100; 85025; 96360; 96361; 99283; G0480; J7030

== ENCOUNTER 2018-10-27 21:24 | Emergency (ER) | payer MEDICARE, OTHER ==
[2018-10-27 21:24] VITALS: BMI 28.3
[2018-10-27] MEDS ORDERED: Sodium Chloride 0.9% 1,000 ML IV ONE ×2 (21:38→23:19)
[2018-10-27 22:10] LABS: BASO # 0.1 K/uL (0.0-0.2); BASO % 1.2 % (0.0-2.0); EOS # 0.2 K/uL (0.0-0.7); EOS % 3.2 % (0.0-4.0); HEMOGLOBIN 12.3 g/dL (11.0-16.0); LYMPH % 39.6 % (20.0-40.0); MEAN CELL VOLUME 95.8 fL (81.0-99.0); MEAN CORPUSCULAR HEMOGLOBIN 31.4 pg (27.0-31.0); MEAN CORPUSCULAR HGB CONC 32.8 g/dL (33.0-37.0); MEAN PLATELET VOLUME 9.7 fL (7.2-11.7); MONO # 0.4 K/uL (0.0-0.8); MONO % 8.2 % (0.0-10.0); NEUT # 2.4 K/uL (1.8-7.0); NEUT % 47.8 % (50.0-75.0); NRBC % 0.1 % (0.0-2.0); RBC 3.92 Mil/uL (3.80-5.20); RED CELL DISTRIBUTION WIDTH 15.1 % (11.5-14.5)
[2018-10-27 22:17] LABS: VENOUS BLOOD GAS BASE EXCESS -4.2 mmol/L (0.0-2.0); VENOUS BLOOD GAS PCO2 38 mmHg (40-60); VENOUS BLOOD GAS PO2 56 mm/Hg (30-55); VENOUS BLOOD PH 7.35 (7.32-7.43)
[2018-10-27 22:36] LABS: ALBUMIN 3.4 g/dL (3.5-5.0); ALT/SGPT 70 U/L (9-52); AST/SGOT 112 U/L (14-36); BLOOD UREA NITROGEN 4 mg/dL (7-17); GFR NON-AFRICAN AMERICAN > 60; LIPASE 325 U/L (23-300)
[2018-10-27] MEDS ORDERED: (Novolin R) Insulin Human Regular 100 units/ml vial IVP STA (22:47)
[2018-10-27] MEDS ORDERED: (Novolin R) Insulin Human Regular 100 units/ml vial ONE (22:48)
[2018-10-27] MEDS ORDERED: Sodium Chloride 0.9% 2,000 ML ONE (23:19)
[2018-10-28 01:03] VITALS: RESP 20
[2018-10-28] MEDS ORDERED: (Novolin R) Insulin Human Regular 100 units/ml vial IVP STA (03:09)
[2018-10-28 03:16] VITALS: TEMP 98.4
[2018-10-28] MEDS ORDERED: (Novolin R) Insulin Human Regular 100 units/ml vial ONE (03:17)
--- NOTE | 2018-10-28 03:23 | C.PDOC ---
History Of Present Illness 68 year old female with PMHx of DM is brought to the ED by EMS for alcohol intoxication. Patient states she drank lot of alcohol today, also c/o chronic abdominal pain. Patient is non complaint with her diabetes medications. Patient denies SI/HI, hallucinations, other medical complaints at this time. Time Seen by Provider: 10/27/18 21:36 Chief Complaint (Nursing): Substance Abuse History Per: Patient, EMS History/Exam Limitations: intoxication Onset/Duration Of Symptoms: Hrs Current Symptoms Are (Timing): Still Present Suicide/Self Injury Attempted (Context): None Modifying Factor(s): Alcohol Associated Symptoms: denies: Depression, Suicidal Thoughts, Suicidal Plan Recent travel outside of the [place]: No Additional History Per: Patient Past Medical History Reviewed: Historical Data, Nursing Documentation, Vital Signs Vital Signs: Last Vital Signs Temp 98.4 F 10/28/18 03:15 Pulse 85 10/28/18 03:15 Resp 20 10/28/18 03:15 BP 107/62 10/28/18 03:15 Pulse Ox 98 10/28/18 03:15 - Medical History PMH: Anemia, Anxiety, Arthritis, Asthma, Bipolar Disorder, Bronchitis, CAD, COPD, Depression, Diabetes, Gastritis, GERD, Hypercholesterolemia, Hypothyroidism, Osteoporosis, Peripheral Edema, Pneumonia, Pulmonary Embolism Denies: Hepatitis, HIV, HTN, Chronic Kidney Disease, Seizures, Sexually Transmitted Disease Surgical History: CABG, Cholecystectomy, Coronary Stent - [facility] Procedures ALCOHOL DETOXIFICATION (03/15/15) DETOXIFICATION SERVICES FOR SUBSTANCE ABUSE TREATMENT (10/16/18) EXCISION OF STOMACH, ENDO, DIAGN (05/29/18) FLUOROSCOPY OF MULT COR ART USING L OSM CONTRAST (03/10/18) GROUP BUSINESS EDUCATION TEACHER FOR SUBSTANCE ABUSE TREATMENT, PSYCHOEDUCATION (10/16/18) GROUP PSYCHOTHERAPY (02/03/18) INDIV PSYCHOTHERAPY FOR SUBSTANCE ABUSE TREATMENT, SUPPORT (10/16/18) INDIV PSYCHOTHERAPY FOR SUBSTANCE ABUSE, COGNITIV BEHAVIORAL (02/03/18) INDIVID PSYCHOTHERAP NEC (04/14/13) INDIVIDUAL PSYCHOTHERAPY, COGNITIVE-BEHAVIORAL (02/03/18) INTRODUCTION OF ANTI-INFLAM INTO RESP TRACT, VIA OPENING (01/25/17) INTRODUCTION OF SERUM/TOX/VACCINE INTO MUSCLE, PERC APPROACH (09/02/17) MEASURE OF CARDIAC SAMPL & PRESSURE, L HEART, PERC APPROACH (03/10/18) MEDICATION MANAGEMENT (10/16/18) OTHER GROUP THERAPY (04/14/13) PHYSICAL THERAPY NEC (06/12/14) Family History: States: Unknown Family Hx - Social History Hx Tobacco Use: Yes Hx Alcohol Use: Yes Hx Substance Use: No - Immunization History Hx Tetanus Toxoid Vaccination: No Hx Influenza Vaccination: No Hx Pneumococcal Vaccination: No Review Of Systems Constitutional: Negative for: Fever, Chills Cardiovascular: Negative for: Chest Pain, Palpitations Respiratory: Negative for: Shortness of Breath Gastrointestinal: Positive for: Abdominal Pain. Negative for: Nausea, Vomiting Skin: Negative for: Rash Neurological: Negative for: Weakness, Numbness Psych: Negative for: Depression, Suicidal ideation Physical Exam - Physical Exam Appears: Non-toxic, No Acute Distress, Other (AOB) Skin: Normal Color, Warm, Dry Head: Atraumatic, Normacephalic Eye(s): bilateral: Normal Inspection Neck: Normal ROM, Supple Chest: Symmetrical Cardiovascular: Rhythm Regular Respiratory: Normal Breath Sounds, No Rales, No Rhonchi, No Wheezing Gastrointestinal/Abdominal: Soft, No Tenderness, No Guarding, No Rebound Extremity: Normal ROM, No Tenderness, No Swelling Neurological/Psych: Oriented x3, Normal Speech, Normal Cognition Gait: Steady ED Course And Treatment - Laboratory Results Result Diagrams: 10/27/18 22:05 10/27/18 22:05 Lab Results: pO2 56 mm/Hg (30-55) H 10/27/18 22:10 VBG pH 7.35 (7.32-7.43) 10/27/18 22:10 VBG pCO2 38 mmHg (40-60) L 10/27/18 22:10 VBG HCO3 21.4 mmol/L 10/27/18 22:10 VBG Total CO2 22.2 mmol/L (22-28) 10/27/18 22:10 VBG O2 Sat (Calc) 90.7 % (40-65) H 10/27/18 22:10 VBG Base Excess -4.2 mmol/L (0.0-2.0) L 10/27/18 22:10 VBG Potassium 4.9 mmol/L (3.6-5.2) 10/27/18 22:10 Sodium 138.0 mmol/l (132-148) 10/27/18 22:10 Chloride 106.0 mmol/L (98-107) 10/27/18 22:10 Glucose 526 mg/dl (65-105) H* D 10/27/18 22:10 Lactate 3.5 mmol/L (0.7-2.1) H 10/27/18 22:10 Crit Value Called To Dr calvo 10/27/18 22:10 Crit Value Called By [email or web address] 10/27/18 22:10 Crit Value Read Back Y 10/27/18 22:10 Blood Gas Notified Time 221410/27/18 22:10 Total Bilirubin 0.9 mg/dL (0.2-1.3) 10/27/18 22:05 AST 112 U/L (14-36) H D 10/27/18 22:05 ALT 70 U/L (9-52) H D 10/27/18 22:05 Alkaline Phosphatase 200 U/L (38-126) H 10/27/18 22:05 Total Protein 7.0 g/dL (6.3-8.3) 10/27/18 22:05 Albumin 3.4 g/dL (3.5-5.0) L 10/27/18 22:05 Globulin 3.5 gm/dL (2.2-3.9) 10/27/18 22:05 Albumin/Globulin Ratio 1.0 (1.0-2.1) 10/27/18 22:05 Lipase 325 U/L (23-300) H 10/27/18 22:05 O2 Sat by Pulse Oximetry: 98 (On RA) Pulse Ox Interpretation: Normal Medical Decision Making Medical Decision Making: Patient is ambulating in the Ed with a steady gait, clinically sober. Disposition - Disposition Referrals: On License Of [facility] [Outside] [facility] [Outside] Disposition: HOME/ ROUTINE Disposition Time: 03:20 Condition: IMPROVED Additional Instructions: [employer], thank you for letting us take care of you today. The emergency medical care you received today was directed at your acute symptoms. If you were prescribed any medication, please fill it and take as directed. It may take several days for your symptoms to resolve. Return to the Emergency Department if your symptoms worsen, do not improve, or if you have any other problems. Please contact your doctor or call one of the physicians/clinics you have been referred to that are listed on the Patient Visit Information form that is included in your discharge packet. Bring any paperwork you were given at discharge with you along with any medications you are taking to your follow up visit. Our treatment cannot replace ongoing medical care by a primary care provider outside of the emergency department. Thank you for allowing the [facility] team to be part of your care today. Do not drink too much alcohol at once. Follow up with your doctor in 2 days for re-evaluation and further management. Instructions: Alcohol Use - When Is Drinking a Problem?, Hyperglycemia, Adult (DC) Forms: [facility] (Libyan) Print Language: JAPANESE - Clinical Impression Clinical Impression: Alcohol abuse, Hyperglycemia - Scribe Statement The provider has reviewed the documentation as recorded by the Scribe Moe Wolff All medical record entries made by the Scribe were at my direction and personally dictated by me. I have reviewed the chart and agree that the record accurately reflects my personal performance of the history, physical exam, medical decision making, and the department course for this patient. I have also personally directed, reviewed, and agree with the discharge instructions and disposition.
[2018-10-28 04:55] VITALS: BP 109/64; PULSE 82
[2018-10-28 05:49] VITALS: O2SAT 98
== END 2018-10-28 04:58 | disposition home or self-care (01) ==
LOC: C.ER 21:24
DX: F10.129 Alcohol abuse with intoxication, unspecified (principal); E11.65 Type 2 diabetes mellitus with hyperglycemia; E78.00 Pure hypercholesterolemia, unspecified; E03.9 Hypothyroidism, unspecified; I25.10 Atherosclerotic heart disease of native coronary artery without angina pectoris; F31.9 Bipolar disorder, unspecified; J44.9 Chronic obstructive pulmonary disease, unspecified; M81.0 Age-related osteoporosis without current pathological fracture; Z72.0 Tobacco use
CPT/HCPCS: 80053; 82009; 82803; 82948; 83690; 85025; 96361; 96374; 96376; 99285; G0480; J7030

== ENCOUNTER 2018-10-30 13:08 | Emergency (ER) | payer MEDICARE, OTHER ==
[2018-10-30 13:08] VITALS: BMI 28.3
[2018-10-30] MEDS ORDERED: Sodium Chloride 0.9% 1,000 ML IV ONE (13:28)
[2018-10-30 14:05] LABS: BASO # 0.1 K/uL (0.0-0.2); BASO % 1.1 % (0.0-2.0); EOS # 0.1 K/uL (0.0-0.7); EOS % 1.4 % (0.0-4.0); HEMOGLOBIN 11.9 g/dL (11.0-16.0); LYMPH % 33.2 % (20.0-40.0); MEAN CELL VOLUME 94.8 fL (81.0-99.0); MEAN CORPUSCULAR HEMOGLOBIN 31.7 pg (27.0-31.0); MEAN CORPUSCULAR HGB CONC 33.5 g/dL (33.0-37.0); MEAN PLATELET VOLUME 9.3 fL (7.2-11.7); MONO # 0.5 K/uL (0.0-0.8); MONO % 7.4 % (0.0-10.0); NEUT # 3.5 K/uL (1.8-7.0); NEUT % 56.9 % (50.0-75.0); RBC 3.75 Mil/uL (3.80-5.20); RED CELL DISTRIBUTION WIDTH 15.2 % (11.5-14.5); WHITE BLOOD COUNT 6.1 K/uL (4.8-10.8)
[2018-10-30 14:19] LABS: ALBUMIN 3.5 g/dL (3.5-5.0); ALT/SGPT 57 U/L (9-52); AST/SGOT 117 U/L (14-36); BLOOD UREA NITROGEN 4 mg/dL (7-17); CALCIUM 8.5 mg/dl (8.6-10.4); GFR NON-AFRICAN AMERICAN > 60
[2018-10-30] MEDS ORDERED: Sodium Chloride 0.9% 1,000 ML ONE (14:20)
[2018-10-30 15:21] LABS: INR 1.1; PROTHROMBIN TIME 12.2 SECONDS (9.7-12.2)
[2018-10-30] MEDS ORDERED: Gentamicin 80 mg in 0.9% NS 80 MG/100 ML BAG IVPB SCH (15:30)
--- NOTE | 2018-10-30 15:44 | C.PDOC ---
History Of Present Illness 68 year old female presents to ED after alcohol consumption. Patient is an alcoholic and was intoxicated and is not a good historian. Patient has a past history of abdominal pain. Patient went to the [place] ER on 11/[address] showed early tip appendicitis. Patient was attempted to be reached after CT scan was taken, but was unable to be found. Patient denies nausea, vomiting, and diarrhea. <Maria Painter - Last Filed: 10/30/18 15:41> History Per: Patient History/Exam Limitations: intoxication Onset/Duration Of Symptoms: Hrs Current Symptoms Are (Timing): Still Present Modifying Factor(s): Alcohol Additional History Per: EMS <Maria Painter - Last Filed: 10/30/18 15:41> <Mehdi Crisostomo - Last Filed: 10/30/18 17:49> Time Seen by Provider: 10/30/18 13:13 Chief Complaint (Nursing): Substance Abuse Past Medical History Reviewed: Historical Data, Nursing Documentation, Vital Signs Vital Signs: Last Vital Signs Temp 98.2 F 10/30/18 15:19 Pulse 87 10/30/18 15:19 Resp 14 10/30/18 15:19 BP 111/72 10/30/18 15:19 Pulse Ox 100 10/30/18 15:19 - Medical History PMH: Anemia, Anxiety, Arthritis, Asthma, Bipolar Disorder, Bronchitis, CAD, COPD, Depression, Diabetes, Gastritis, GERD, Hypercholesterolemia, Hypothyroidism, Osteoporosis, Peripheral Edema, Pneumonia, Pulmonary Embolism Denies: Hepatitis, HIV, HTN, Chronic Kidney Disease, Seizures, Sexually Transmitted Disease Surgical History: CABG, Cholecystectomy, Coronary Stent - [facility] Procedures ALCOHOL DETOXIFICATION (03/15/15) DETOXIFICATION SERVICES FOR SUBSTANCE ABUSE TREATMENT (10/16/18) EXCISION OF STOMACH, ENDO, DIAGN (05/29/18) FLUOROSCOPY OF MULT COR ART USING L OSM CONTRAST (03/10/18) GROUP SUPERVISOR JEWELRY DEPARTMENT FOR SUBSTANCE ABUSE TREATMENT, PSYCHOEDUCATION (10/16/18) GROUP PSYCHOTHERAPY (02/03/18) INDIV PSYCHOTHERAPY FOR SUBSTANCE ABUSE TREATMENT, SUPPORT (10/16/18) INDIV PSYCHOTHERAPY FOR SUBSTANCE ABUSE, COGNITIV BEHAVIORAL (02/03/18) INDIVID PSYCHOTHERAP NEC (04/14/13) INDIVIDUAL PSYCHOTHERAPY, COGNITIVE-BEHAVIORAL (02/03/18) INTRODUCTION OF ANTI-INFLAM INTO RESP TRACT, VIA OPENING (01/25/17) INTRODUCTION OF SERUM/TOX/VACCINE INTO MUSCLE, PERC APPROACH (09/02/17) MEASURE OF CARDIAC SAMPL & PRESSURE, L HEART, PERC APPROACH (03/10/18) MEDICATION MANAGEMENT (10/16/18) OTHER GROUP THERAPY (04/14/13) PHYSICAL THERAPY NEC (06/12/14) Family History: States: Unknown Family Hx - Social History Hx Tobacco Use: Yes Hx Alcohol Use: Yes Hx Substance Use: No - Immunization History Hx Tetanus Toxoid Vaccination: No Hx Influenza Vaccination: No Hx Pneumococcal Vaccination: No <Maria Painter - Last Filed: 10/30/18 15:41> Vital Signs: Last Vital Signs Temp 98.2 F 10/30/18 15:19 Pulse 89 10/30/18 17:12 Resp 20 10/30/18 17:12 BP 130/76 10/30/18 17:12 Pulse Ox 95 10/30/18 17:12 - [facility] Procedures ALCOHOL DETOXIFICATION (03/15/15) DETOXIFICATION SERVICES FOR SUBSTANCE ABUSE TREATMENT (10/16/18) EXCISION OF STOMACH, ENDO, DIAGN (05/29/18) FLUOROSCOPY OF MULT COR ART USING L OSM CONTRAST (03/10/18) GROUP SUPERVISOR JEWELRY DEPARTMENT FOR SUBSTANCE ABUSE TREATMENT, PSYCHOEDUCATION (10/16/18) GROUP PSYCHOTHERAPY (02/03/18) INDIV PSYCHOTHERAPY FOR SUBSTANCE ABUSE TREATMENT, SUPPORT (10/16/18) INDIV PSYCHOTHERAPY FOR SUBSTANCE ABUSE, COGNITIV BEHAVIORAL (02/03/18) INDIVID PSYCHOTHERAP NEC (04/14/13) INDIVIDUAL PSYCHOTHERAPY, COGNITIVE-BEHAVIORAL (02/03/18) INTRODUCTION OF ANTI-INFLAM INTO RESP TRACT, VIA OPENING (01/25/17) INTRODUCTION OF SERUM/TOX/VACCINE INTO MUSCLE, PERC APPROACH (09/02/17) MEASURE OF CARDIAC SAMPL & PRESSURE, L HEART, PERC APPROACH (03/10/18) MEDICATION MANAGEMENT (10/16/18) OTHER GROUP THERAPY (04/14/13) PHYSICAL THERAPY NEC (06/12/14) <Mehdi Crisostomo - Last Filed: 10/30/18 17:49> Review Of Systems Constitutional: Negative for: Fever, Chills, Weakness Eyes: Negative for: Redness Cardiovascular: Negative for: Chest Pain, Palpitations Respiratory: Negative for: Cough, Shortness of Breath Gastrointestinal: Positive for: Abdominal Pain (lower abdomen). Negative for: Nausea, Vomiting, Diarrhea Genitourinary: Negative for: Dysuria, Hematuria Musculoskeletal: Negative for: Back Pain Neurological: Positive for: Other (Intoxicated). Negative for: Weakness, Numbness <Maria Painter - Last Filed: 10/30/18 15:41> Physical Exam - Physical Exam Appears: Well, Non-toxic, No Acute Distress Skin: Normal Color, Warm, Dry Head: Atraumatic, Normacephalic Neck: Normal ROM, Supple Chest: Symmetrical, No Deformity Respiratory: No Accessory Muscle Use Gastrointestinal/Abdominal: Tenderness (right lower quandrant ), No Guarding, No Rebound, No Other (McBurney's point pain) Extremity: Capillary Refill (<2 seconds) Extremity: Bilateral: Atraumatic, Normal Color And Temperature Pulses: Left Radial: Normal, Right Radial: Normal Neurological/Psych: Other (Alert and awake,able to answer question, intoxicated) <Maria Painter - Last Filed: 10/30/18 15:41> ED Course And Treatment - Laboratory Results Result Diagrams: 10/30/18 13:58 10/30/18 13:58 Lab Results: PT 12.2 SECONDS (9.7-12.2) 10/30/18 15:08 INR 1.1 10/30/18 15:08 APTT 28 SECONDS (21-34) 10/30/18 15:08 Total Bilirubin 0.7 mg/dL (0.2-1.3) 10/30/18 13:58 AST 117 U/L (14-36) H 10/30/18 13:58 ALT 57 U/L (9-52) H 10/30/18 13:58 Alkaline Phosphatase 189 U/L (38-126) H 10/30/18 13:58 Total Protein 7.1 g/dL (6.3-8.3) 10/30/18 13:58 Albumin 3.5 g/dL (3.5-5.0) 10/30/18 13:58 Globulin 3.6 gm/dL (2.2-3.9) 10/30/18 13:58 Albumin/Globulin Ratio 1.0 (1.0-2.1) 10/30/18 13:58 O2 Sat by Pulse Oximetry: 100 <Maria Painter A - Last Filed: 10/30/18 15:41> - Laboratory Results Result Diagrams: 10/30/18 13:58 10/30/18 13:58 Lab Results: PT 12.2 SECONDS (9.7-12.2) 10/30/18 15:08 INR 1.1 10/30/18 15:08 APTT 28 SECONDS (21-34) 10/30/18 15:08 Total Bilirubin 0.7 mg/dL (0.2-1.3) 10/30/18 13:58 AST 117 U/L (14-36) H 10/30/18 13:58 ALT 57 U/L (9-52) H 10/30/18 13:58 Alkaline Phosphatase 189 U/L (38-126) H 10/30/18 13:58 Total Protein 7.1 g/dL (6.3-8.3) 10/30/18 13:58 Albumin 3.5 g/dL (3.5-5.0) 10/30/18 13:58 Globulin 3.6 gm/dL (2.2-3.9) 10/30/18 13:58 Albumin/Globulin Ratio 1.0 (1.0-2.1) 10/30/18 13:58 - CT Scan/US Abdomen/Pelvis Other Rad Studies (CT/US): Interpreted By Me, Read By Radiologist CT/US Interpretation: Accession No. : [id number]. Patient Name / ID : SA GORGE MCLAUGHLIN / [id number]. Exam Date : 10/30/2018 16:32:40 ( Approved ). Study Comment : Sex / Age : F / 68Y. Creator : Nixon Kidd MD. Dictator : Nixon Kidd MD. Vascular Technician : Kitchen Food Assembler : Nixon Kidd MD. Approver2 : Report Date : 10/30/2018 17:46:12. My Comment : . This report is currently processing and HAS NOT BEEN OFFICIALLY SIGNED BY THE PHYSICIAN - ESTIMATED TIME OF APPROVAL IS 10/30/2018 17:51. Date of service: 10/30/2018. PROCEDURE: CT Abdomen and Pelvis with contrast. HISTORY: Abdominal. Pain, early tip appendicitis. COMPARISON: 10/04/2018, 10/16/2018 and 10/27/[address] scans of the abdomen and pelvis. TECHNIQUE: Intravenous contrast dose: 100 cc Visipaque 320. Radiation dose: Total exam DLP = 508.33 mGy-cm. This CT exam was performed using one or more of the following dose reduction techniques: Automated exposure control, adjustment of the mA and/or kV according to patient size, and/or use of iterative reconstruction technique. FINDINGS: LOWER THORAX: Unremarkable. LIVER: Hepatic steatosis. No focal masses. No intrahepatic bile duct dilatation or perihepatic ascites. GALLBLADDER AND BILE DUCTS: Status post cholecystectomy. No abnormality is seen in the gallbladder fossa. PANCREAS: Unremarkable. No gross lesion or ductal dilatation. SPLEEN: Unremarkable. ADRENALS: Unremarkable. No mass. KIDNEYS AND URETERS: Unremarkable. No hydronephrosis. No solid mass. Distention of the right ureter and collecting system likely physiological; the bladder is markedly distended. VASCULATURE: Unremarkable. No aortic aneurysm. No atherosclerotic calcification or mural plaque present. Stable position IVC filter. BOWEL: Diverticulosis without an acute inflammatory component or other associated pathologic process. APPENDIX: No abnormalities to suggest acute appendicitis. The appendix is visualized in its entirety. No right lower quadrant inflammatory processes identified. PERITONEUM: Unremarkable. No free fluid. No free air. LYMPH NODES: Unremarkable. No enlarged lymph nodes. BLADDER: Marked distention of the urinary bladder. No focal bladder wall abnormalities. REPRODUCTIVE: Unremarkable. BONES: No acute fracture. OTHER FINDINGS: None. IMPRESSION: No acute findings related to/ accounting for the clinical presentation. Specifically no evidence of acute appendicitis. Additional benign and/or i ncidental findings described above. <Mehdi Crisostomo M - Last Filed: 10/30/18 17:49> Medical Decision Making Medical Decision Making: Impression: 68 year old with abdominal pain Plan: Labs ordered with partial thromboplastin, prothrombin, glucose, and blood culture for patient. CT of Abd/ Pelvis with IV contrast ordered for patient prior to admission. Gentamicin IVPB and NaCl IV given to patient Consulted with Dr. Minor and Dr. Salazar regarding patient admission. <Maria Painter - Last Filed: 10/30/18 15:41> - Scribe Statement The provider has reviewed the documentation as recorded by the Scribe (Jennifer Cortez) All medical record entries made by the Scribe were at my direction and personally dictated by me. I have reviewed the chart and agree that the record accurately reflects my personal performance of the history, physical exam, medical decision making, and the department course for this patient. I have also personally directed, reviewed, and agree with the discharge instructions and disposition. <Maria Painter - Last Filed: 10/30/18 15:41>
[2018-10-30] MEDS ORDERED: Iodixanol 320 MG/ML 100 ML BOTTLE IV ONE (16:51)
[2018-10-30] MEDS ORDERED: Multivitamin (MVI) 10 ML, Thiamine 100 MG, Folic Acid 1 MG in Sodium Chloride 0.9% 1,00... IV ONE (17:12)
--- NOTE | 2018-10-30 17:49 | CT ---
Date of service: 10/30/2018 PROCEDURE: CT Abdomen and Pelvis with contrast HISTORY: Abdominal. Pain, early tip appendicitis COMPARISON: 10/04/2018, 10/16/2018 and 10/27/[address] scans of the abdomen and pelvis. TECHNIQUE: Intravenous contrast dose: 100 cc Visipaque 320. Radiation dose: Total exam DLP = 508.33 mGy-cm. This CT exam was performed using one or more of the following dose reduction techniques: Automated exposure control, adjustment of the mA and/or kV according to patient size, and/or use of iterative reconstruction technique. FINDINGS: LOWER THORAX: Unremarkable. LIVER: Hepatic steatosis. No focal masses. No intrahepatic bile duct dilatation or perihepatic ascites. GALLBLADDER AND BILE DUCTS: Status post cholecystectomy. No abnormality is seen in the gallbladder fossa. PANCREAS: Unremarkable. No gross lesion or ductal dilatation. SPLEEN: Unremarkable. ADRENALS: Unremarkable. No mass. KIDNEYS AND URETERS: Unremarkable. No hydronephrosis. No solid mass. Distention of the right ureter and collecting system likely physiological; the bladder is markedly distended. VASCULATURE: Unremarkable. No aortic aneurysm. No atherosclerotic calcification or mural plaque present. Stable position IVC filter. BOWEL: Diverticulosis without an acute inflammatory component or other associated pathologic process. APPENDIX: No abnormalities to suggest acute appendicitis. The appendix is visualized in its entirety. No right lower quadrant inflammatory processes identified. PERITONEUM: Unremarkable. No free fluid. No free air. LYMPH NODES: Unremarkable. No enlarged lymph nodes. BLADDER: Marked distention of the urinary bladder. No focal bladder wall abnormalities. REPRODUCTIVE: Unremarkable. BONES: No acute fracture. OTHER FINDINGS: None. IMPRESSION: No acute findings related to/ accounting for the clinical presentation. Specifically no evidence of acute appendicitis. Additional benign and/or incidental findings described above.
--- NOTE | 2018-10-30 18:02 | C.PDOC ---
History Of Present Illness 68 year old female presents to ED after alcohol consumption. Patient is an alcoholic and was intoxicated and is not a good historian. Patient has a past history of abdominal pain. Patient went to the [place] ER on 11/[address] showed early tip appendicitis. Patient was attempted to be reached after CT scan was taken, but was unable to be found. Patient denies nausea, vomiting, and diarrhea. Time Seen by Provider: 10/30/18 13:13 Chief Complaint (Nursing): Substance Abuse History Per: Patient History/Exam Limitations: intoxication Onset/Duration Of Symptoms: Days Current Symptoms Are (Timing): Still Present Modifying Factor(s): Alcohol Past Medical History Reviewed: Historical Data, Nursing Documentation, Vital Signs Vital Signs: Last Vital Signs Temp 98.2 F 10/30/18 15:19 Pulse 89 10/30/18 17:12 Resp 20 10/30/18 17:12 BP 130/76 10/30/18 17:12 Pulse Ox 95 10/30/18 17:12 - Medical History PMH: Anemia, Anxiety, Arthritis, Asthma, Bipolar Disorder, Bronchitis, CAD, COPD, Depression, Diabetes, Gastritis, GERD, Hypercholesterolemia, Hypothyroidism, Osteoporosis, Peripheral Edema, Pneumonia, Pulmonary Embolism Denies: Hepatitis, HIV, HTN, Chronic Kidney Disease, Seizures, Sexually Ramey smitted Disease Surgical History: CABG, Cholecystectomy, Coronary Stent - [facility] Procedures ALCOHOL DETOXIFICATION (03/15/15) DETOXIFICATION SERVICES FOR SUBSTANCE ABUSE TREATMENT (10/16/18) EXCISION OF STOMACH, ENDO, DIAGN (05/29/18) FLUOROSCOPY OF MULT COR ART USING L OSM CONTRAST (03/10/18) GROUP COMMERCIAL STRIPPER FOR SUBSTANCE ABUSE TREATMENT, PSYCHOEDUCATION (10/16/18) GROUP PSYCHOTHERAPY (02/03/18) INDIV PSYCHOTHERAPY FOR SUBSTANCE ABUSE TREATMENT, SUPPORT (10/16/18) INDIV PSYCHOTHERAPY FOR SUBSTANCE ABUSE, COGNITIV BEHAVIORAL (02/03/18) INDIVID PSYCHOTHERAP NEC (04/14/13) INDIVIDUAL PSYCHOTHERAPY, COGNITIVE-BEHAVIORAL (02/03/18) INTRODUCTION OF ANTI-INFLAM INTO RESP TRACT, VIA OPENING (01/25/17) INTRODUCTION OF SERUM/TOX/VACCINE INTO MUSCLE, PERC APPROACH (09/02/17) MEASURE OF CARDIAC SAMPL & PRESSURE, L HEART, PERC APPROACH (03/10/18) MEDICATION MANAGEMENT (10/16/18) OTHER GROUP THERAPY (04/14/13) PHYSICAL THERAPY NEC (06/12/14) Family History: States: Unknown Family Hx - Social History Hx Tobacco Use: Yes Hx Alcohol Use: Yes Hx Substance Use: No - Immunization History Hx Tetanus Toxoid Vaccination: No Hx Influenza Vaccination: No Hx Pneumococcal Vaccination: No Review Of Systems Constitutional: Negative for: Fever, Chills, Weakness Eyes: Negative for: Redness Cardiovascular: Negative for: Chest Pain, Palpitations Respiratory: Negative for: Cough, Shortness of Breath Gastrointestinal: Positive for: Abdominal Pain. Negative for: Nausea, Vomiting, Diarrhea Genitourinary: Negative for: Dysuria Neurological: Negative for: Weakness, Numbness, Dizziness Physical Exam - Physical Exam Appears: Well, Non-toxic, No Acute Distress Skin: Normal Color, Warm, Dry Head: Atraumatic, Normacephalic Neck: Normal ROM, Supple Chest: Symmetrical, No Deformity Cardiovascular: Rhythm Regular, No Murmur Respiratory: No Accessory Muscle Use, No Rales, No Rhonchi, No Wheezing Gastrointestinal/Abdominal: Tenderness (right lower quadrant tenderness), No Guarding, No Rebound, No Other (McBurney's point tenderness) Extremity: Capillary Refill (<2 seconds) Extremity: Bilateral: Atraumatic, Normal Color And Temperature Pulses: Left Radial: Normal, Right Radial: Normal Neurological/Psych: Other (Alert, awake, ambulating normally ) Gait: Steady ED Course And Treatment - Laboratory Results Result Diagrams: 10/30/18 13:58 10/30/18 13:58 Lab Results: PT 12.2 SECONDS (9.7-12.2) 10/30/18 15:08 INR 1.1 10/30/18 15:08 APTT 28 SECONDS (21-34) 10/30/18 15:08 Total Bilirubin 0.7 mg/dL (0.2-1.3) 10/30/18 13:58 AST 117 U/L (14-36) H 10/30/18 13:58 ALT 57 U/L (9-52) H 10/30/18 13:58 Alkaline Phosphatase 189 U/L (38-126) H 10/30/18 13:58 Total Protein 7.1 g/dL (6.3-8.3) 10/30/18 13:58 Albumin 3.5 g/dL (3.5-5.0) 10/30/18 13:58 Globulin 3.6 gm/dL (2.2-3.9) 10/30/18 13:58 Albumin/Globulin Ratio 1.0 (1.0-2.1) 10/30/18 13:58 O2 Sat by Pulse Oximetry: 95 (RA) - CT Scan/US Abdomen/Pelvis Other Rad Studies (CT/US): Interpreted By Me, Read By Radiologist CT/US Interpretation: Accession No. : [id number]. Patient Name / ID : MÓNICA MCLAUGHLIN / [id number]. Exam Date : 10/30/2018 16:32:40 ( Approved ). Study Comment : Sex / Age : F / 68Y. Creator : Nixon Kidd MD. Dictator : Nixon Kidd MD. Physician Relations Manager : Shingle Weaver : Jarad Kidd MD. Approver2 : Report Date : 10/30/2018 17:46:12. My Comment : . This report is currently processing and HAS NOT BEEN OFFICIALLY SIGNED BY THE PHYSICIAN - ESTIMATED TIME OF APPROVAL IS 10/30/2018 17:51. Date of service: 10/30/2018. PROCEDURE: CT Abdomen and Pelvis with contrast. HISTORY: Abdominal. Pain, early tip appendicitis. COMPARISON: 10/04/2018, 10/16/2018 and 10/27/[address] scans of the abdomen and pelvis. TECHNIQUE: Intravenous contrast dose: 100 cc Visipaque 320. Radiation dose: Total exam DLP = 508.33 mGy-cm. This CT exam was performed using one or more of the following dose reduction techniques: Automated exposure control, adjustment of the mA and/or kV according to patient size, and/or use of iterative reconstruction technique. FINDINGS: LOWER THORAX: Unremarkable. LIVER: Hepatic steatosis. No focal masses. No intrahepatic bile duct dilatation or perihepatic ascites. GALLBLADDER AND BILE DUCTS: Status post cholecystectomy. No abnormality is seen in the gallbladder fossa. PANCREAS: Unremarkable. No gross lesion or ductal dilatation. SPLEEN: Unremarkable. ADRENALS: Unremarkable. No mass. KIDNEYS AND URETERS: Unremarkable. No hydronephrosis. No solid mass. Distention of the right ureter and collecting system likely physiological; the bladder is markedly distended. VASCULATURE: Unremarkable. No aortic aneurysm. No atherosclerotic calcification or mural plaque present. Stable position IVC filter. BOWEL: Diverticulosis without an acute inflammatory component or other associated pathologic process. APPENDIX: No abnormalities to suggest acute appendicitis. The appendix is visualized in its entirety. No right lower quadrant inflammatory processes identified. PERITONEUM: Unremarkable. No free fluid. No free air. LYMPH NODES: Unremarkable. No enlarged lymph nodes. BLADDER: Marked distention of the urinary bladder. No focal bladder wall abnormalities. REPRODUCTIVE: Unremarkable. BONES: No acute fracture. OTHER FINDINGS: None. IMPRESSION: No acute findings related to/ accounting for the clinical presentation. Speci fically no evidence of acute appendicitis. Additional benign and/or incidental findings described above. Medical Decision Making Medical Decision Making: Impression: 68 year old with abdominal pain. Plan: Labs ordered with partial thromboplastin, prothrombin, glucose, and blood culture for patient. CT of Abd/ Pelvis with IV contrast ordered for patient prior to admission. Gentamicin IVPB and NaCl IV given to patient Consulted with Dr. Minor and Dr. Salazar regarding patient admission. CT scan shows no appendicitis Admission cancelled. Pt D/C home with EtOH intoxication Disposition - Disposition Disposition: HOME/ ROUTINE Disposition Time: 17:59 Condition: STABLE - Clinical Impression Clinical Impression: Drug abuse - Scribe Statement The provider has reviewed the documentation as recorded by the Scribe (Jennifer Cortez) All medical record entries made by the Alexanderibe were at my direction and personally dictated by me. I have reviewed the chart and agree that the record accurately reflects my personal performance of the history, physical exam, medical decision making, and the department course for this patient. I have also personally directed, reviewed, and agree with the discharge instructions and disposition.
[2018-10-30 18:09] VITALS: BP 135/80; PULSE 78; RESP 19; TEMP 97.9
[2018-10-30 18:27] VITALS: O2SAT 95
[2018-10-30] MEDS ORDERED: Albuterol-Ipratrop 3 mg / 0.5 (3 ml) UD INH SCH (20:00)
[2018-10-31] MEDS ORDERED: Pyridoxine 100 mg Tab PO SCH (10:00)
[2018-10-31] MEDS ORDERED: Pantoprazole 40 mg EC Tab PO SCH (10:00)
[2018-10-31] MEDS ORDERED: Multiple Vitamins Tab PO SCH (10:00)
== END 2018-10-30 18:09 | disposition home or self-care (01) ==
LOC: C.ER 13:08 → C.9E 14:22 → UNDOADMOB 14:22 → C.9E 15:09 → C.3T 15:09 → C.9E 18:08
DX: F19.10 Other psychoactive substance abuse, uncomplicated (principal); E11.9 Type 2 diabetes mellitus without complications; E78.00 Pure hypercholesterolemia, unspecified; E03.9 Hypothyroidism, unspecified; M81.0 Age-related osteoporosis without current pathological fracture; I25.10 Atherosclerotic heart disease of native coronary artery without angina pectoris
CPT/HCPCS: 36415; 74177; 80053; 82948; 85025; 85610; 85730; 87040; 96374; 99285; J1580; J7030; Q9967

== ENCOUNTER 2018-11-08 04:42 | Emergency (ER) | payer MEDICARE, OTHER ==
[2018-11-08 04:43] VITALS: BMI 28.3
--- NOTE | 2018-11-08 05:06 | C.PDOC ---
History Of Present Illness 68 year old female presents to the ER stating she does not feel well, admits to drinking at home. Patient has a Hx of diabetes, sugar noted to be high. Denies nausea or vomiting. Chief Complaint (Nursing): Substance Abuse History Per: Patient History/Exam Limitations: no limitations Onset/Duration Of Symptoms: Hrs Current Symptoms Are (Timing): Still Present Suicide/Self Injury Attempted (Context): None Modifying Factor(s): Alcohol Involuntary Hold By: None Recent travel outside of the [place]: No Past Medical History Reviewed: Historical Data, Nursing Documentation, Vital Signs - Medical History PMH: Anemia, Anxiety, Arthritis, Asthma, Bipolar Disorder, Bronchitis, CAD, COPD, Depression, Diabetes, Gastritis, GERD, Hypercholesterolemia, Hypothyroidism, Osteoporosis, Peripheral Edema, Pneumonia, Pulmonary Embolism Denies: Hepatitis, HIV, HTN, Chronic Kidney Disease, Seizures, Sexually Transmitted Disease Surgical History: CABG, Cholecystectomy, Coronary Stent - [facility] Procedures ALCOHOL DETOXIFICATION (03/15/15) DETOXIFICATION SERVICES FOR SUBSTANCE ABUSE TREATMENT (10/16/18) EXCISION OF STOMACH, ENDO, DIAGN (05/29/18) FLUOROSCOPY OF MULT COR ART USING L OSM CONTRAST (03/10/18) GROUP TELECOMMUNICATIONS OPERATOR FOR SUBSTANCE ABUSE TREATMENT, PSYCHOEDUCATION (10/16/18) GROUP PSYCHOTHERAPY (02/03/18) INDIV PSYCHOTHERAPY FOR SUBSTANCE ABUSE TREATMENT, SUPPORT (10/16/18) INDIV PSYCHOTHERAPY FOR SUBSTANCE ABUSE, COGNITIV BEHAVIORAL (02/03/18) INDIVID PSYCHOTHERAP NEC (04/14/13) INDIVIDUAL PSYCHOTHERAPY, COGNITIVE-BEHAVIORAL (02/03/18) INTRODUCTION OF ANTI-INFLAM INTO RESP TRACT, VIA OPENING (01/25/17) INTRODUCTION OF SERUM/TOX/VACCINE INTO MUSCLE, PERC APPROACH (09/02/17) MEASURE OF CARDIAC SAMPL & PRESSURE, L HEART, PERC APPROACH (03/10/18) MEDICATION MANAGEMENT (10/16/18) OTHER GROUP THERAPY (04/14/13) PHYSICAL THERAPY NEC (06/12/14) Family History: States: Unknown Family Hx - Social History Hx Tobacco Use: Yes Hx Alcohol Use: Yes Hx Substance Use: No - Immunization History Hx Tetanus Toxoid Vaccination: No Hx Influenza Vaccination: No Hx Pneumococcal Vaccination: No Review Of Systems Constitutional: Positive for: Other (Not feeling well). Negative for: Fever, Chills Cardiovascular: Negative for: Chest Pain, Palpitations Respiratory: Negative for: Cough, Shortness of Breath Gastrointestinal: Negative for: Nausea, Vomiting Neurological: Negative for: Weakness, Numbness Physical Exam - Physical Exam Appears: Non-toxic, Other (Alert, conscious, markedly ETOH on breath) Skin: Normal Color, Warm, Dry Head: Atraumatic, Normacephalic Eye(s): bilateral: Normal Inspection Oral Mucosa: Moist Neck: Normal, Supple Chest: Symmetrical, No Tenderness Cardiovascular: Rhythm Regular Respiratory: Normal Breath Sounds, No Rales, No Rhonchi, No Wheezing Gastrointestinal/Abdominal: Soft, No Tenderness Neurological/Psych: Oriented x3, Normal Speech ED Course And Treatment - Laboratory Results Result Diagrams: 11/08/18 05:34 11/08/18 05:34 Progress Note: Blood work ordered. IV fluids and insulin administered. Disposition Counseled Patient/Family Regarding: Diagnosis - Disposition Referrals: [facility] [Outside] Disposition: HOME/ ROUTINE Disposition Time: 07:00 Condition: STABLE Instructions: Alcohol Abuse and Alcoholism (DC), Diabetes Type 1, Adult (DC), Hyperglycemia, Adult (DC) Forms: [facility] (Turkmen) - POA Present On Arrival: None - Clinical Impression Clinical Impression: Alcohol abuse, Hyperglycemia due to type 1 diabetes mellitus - Scribe Statement The provider has reviewed the documentation as recorded by the Scribmegan Pool All medical record entries made by the Scribe were at my direction and personally dictated by me. I have reviewed the chart and agree that the record accurately reflects my personal performance of the history, physical exam, medical decision making, and the department course for this patient. I have also personally directed, reviewed, and agree with the discharge instructions and disposition.
[2018-11-08] MEDS ORDERED: (Novolin R) Insulin Human Regular 100 units/ml vial SC ONE (05:09)
[2018-11-08] MEDS ORDERED: Sodium Chloride 0.9% 1,000 ML IV ONE ×2 (05:09→05:12)
[2018-11-08] MEDS ORDERED: Multivitamin (MVI) 10 ML, Thiamine 100 MG, Folic Acid 1 MG in Sodium Chloride 0.9% 1,00... IV ONE (05:11)
[2018-11-08] MEDS ORDERED: (Novolin R) Insulin Human Regular 100 units/ml vial ONE (05:34)
[2018-11-08 05:37] LABS: BASO # 0.1 K/uL (0.0-0.2); BASO % 1.3 % (0.0-2.0); EOS # 0.2 K/uL (0.0-0.7); EOS % 4.4 % (0.0-4.0); HEMOGLOBIN 12.6 g/dL (11.0-16.0); LYMPH # 2.1 K/uL (1.0-4.3); LYMPH % 43.1 % (20.0-40.0); MEAN CELL VOLUME 95.4 fL (81.0-99.0); MEAN CORPUSCULAR HEMOGLOBIN 31.3 pg (27.0-31.0); MEAN CORPUSCULAR HGB CONC 32.8 g/dL (33.0-37.0); MEAN PLATELET VOLUME 9.1 fL (7.2-11.7); MONO # 0.4 K/uL (0.0-0.8); MONO % 8.2 % (0.0-10.0); NEUT # 2.1 K/uL (1.8-7.0); NRBC % 0.1 % (0.0-2.0); RBC 4.04 Mil/uL (3.80-5.20); RED CELL DISTRIBUTION WIDTH 15.1 % (11.5-14.5); WHITE BLOOD COUNT 4.9 K/uL (4.8-10.8)
[2018-11-08 05:58] LABS: ALB/GLOB RATIO 0.9 (1.0-2.1); ALBUMIN 3.7 g/dL (3.5-5.0); ALT/SGPT 47 U/L (9-52); AST/SGOT 111 U/L (14-36); BLOOD UREA NITROGEN 7 mg/dL (7-17); CALCIUM 8.2 mg/dl (8.6-10.4); GFR NON-AFRICAN AMERICAN > 60
[2018-11-08 06:59] VITALS: BP 107/56; PULSE 89; RESP 16; TEMP 98.7; O2SAT 99
== END 2018-11-08 06:59 | disposition home or self-care (01) ==
LOC: C.ER 04:42
DX: F10.10 Alcohol abuse, uncomplicated (principal); E10.65 Type 1 diabetes mellitus with hyperglycemia; E03.9 Hypothyroidism, unspecified; E78.00 Pure hypercholesterolemia, unspecified; I25.10 Atherosclerotic heart disease of native coronary artery without angina pectoris; J44.9 Chronic obstructive pulmonary disease, unspecified; M81.0 Age-related osteoporosis without current pathological fracture; Z72.0 Tobacco use
CPT/HCPCS: 80053; 82009; 82948; 85025; 96365; 99285; G0480; J3411; J7030

== ENCOUNTER 2018-11-10 12:33 | Emergency (ER) | payer MEDICARE, OTHER ==
[2018-11-10 13:30] LABS: BASO # 0.1 K/uL (0.0-0.2); BASO % 1.3 % (0.0-2.0); EOS % 0.7 % (0.0-4.0); HEMOGLOBIN 13.3 g/dL (11.0-16.0); LYMPH # 2.6 K/uL (1.0-4.3); LYMPH % 42.1 % (20.0-40.0); MEAN CELL VOLUME 95.1 fL (81.0-99.0); MEAN CORPUSCULAR HEMOGLOBIN 31.1 pg (27.0-31.0); MEAN CORPUSCULAR HGB CONC 32.7 g/dL (33.0-37.0); MEAN PLATELET VOLUME 9.1 fL (7.2-11.7); MONO # 0.5 K/uL (0.0-0.8); MONO % 7.8 % (0.0-10.0); NEUT % 48.1 % (50.0-75.0); NRBC % 0.1 % (0.0-2.0); RBC 4.27 Mil/uL (3.80-5.20); RED CELL DISTRIBUTION WIDTH 14.9 % (11.5-14.5); WHITE BLOOD COUNT 6.3 K/uL (4.8-10.8)
[2018-11-10 13:35] VITALS: BMI 19.5
--- NOTE | 2018-11-10 13:44 | C.PDOC ---
History Of Present Illness 68 y/o female pt presents to the ER c/o dizziness. Pt appears intoxicated however claims last drink was yesterday, had 5 beers. Pt has no other complaints at this time. Time Seen by Provider: 11/10/18 12:46 History Per: Patient History/Exam Limitations: no limitations Onset/Duration Of Symptoms: Days Current Symptoms Are (Timing): Still Present Modifying Factor(s): Alcohol Past Medical History Reviewed: Historical Data, Nursing Documentation, Vital Signs - Medical History PMH: Anemia, Anxiety, Arthritis, Asthma, Bipolar Disorder, Bronchitis, CAD, COPD, Depression, Diabetes, Gastritis, GERD, Hypercholesterolemia, Hypothyroidism, Osteoporosis, Peripheral Edema, Pneumonia, Pulmonary Embolism Surgical History: CABG, Cholecystectomy, Coronary Stent - [facility] Procedures ALCOHOL DETOXIFICATION (03/15/15) DETOXIFICATION SERVICES FOR SUBSTANCE ABUSE TREATMENT (10/16/18) EXCISION OF STOMACH, ENDO, DIAGN (05/29/18) FLUOROSCOPY OF MULT COR ART USING L OSM CONTRAST (03/10/18) 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 FOR SUBSTANCE ABUSE TREATMENT, PSYCHOEDUCATION (10/16/18) GROUP PSYCHOTHERAPY (02/03/18) INDIV PSYCHOTHERAPY FOR SUBSTANCE ABUSE TREATMENT, SUPPORT (10/16/18) INDIV PSYCHOTHERAPY FOR SUBSTANCE ABUSE, COGNITIV BEHAVIORAL (02/03/18) INDIVID PSYCHOTHERAP NEC (04/14/13) INDIVIDUAL PSYCHOTHERAPY, COGNITIVE-BEHAVIORAL (02/03/18) INTRODUCTION OF ANTI-INFLAM INTO RESP TRACT, VIA OPENING (01/25/17) INTRODUCTION OF SERUM/TOX/VACCINE INTO MUSCLE, PERC APPROACH (09/02/17) MEASURE OF CARDIAC SAMPL & PRESSURE, L HEART, PERC APPROACH (03/10/18) MEDICATION MANAGEMENT (10/16/18) OTHER GROUP THERAPY (04/14/13) PHYSICAL THERAPY NEC (06/12/14) Family History: States: Unknown Family Hx - Social History Hx Tobacco Use: Yes Hx Alcohol Use: Yes Hx Substance Use: No - Immunization History Hx Tetanus Toxoid Vaccination: No Hx Influenza Vaccination: No Hx Pneumococcal Vaccination: No Review Of Systems Constitutional: Negative for: Fever, Chills Cardiovascular: Negative for: Chest Pain Respiratory: Negative for: Cough Gastrointestinal: Negative for: Nausea, Vomiting Genitourinary: Negative for: Dysuria, Hematuria Musculoskeletal: Negative for: Neck Pain, Back Pain Skin: Negative for: Rash Neurological: Positive for: Dizziness Psych: Negative for: Anxiety Physical Exam - Physical Exam Appears: Non-toxic, No Acute Distress, Other (intoxicated with slurred speech ) Skin: Warm, Dry Head: Normacephalic Eye(s): bilateral: Normal Inspection, PERRL, EOMI Nose: Normal Oral Mucosa: Moist Neck: Normal ROM, Supple Cardiovascular: Rhythm Regular Respiratory: Normal Breath Sounds Gastrointestinal/Abdominal: Soft, No Tenderness Extremity: Normal ROM (x4) Neurological/Psych: Oriented x3, Normal Speech ED Course And Treatment - Laboratory Results Result Diagrams: 11/10/18 13:27 11/10/18 13:27 Lab Results: APTT 31 SECONDS (21-34) 11/10/18 13:27 Medical Decision Making Medical Decision Making: Plans: -- blood work -- chem labs Patient has been to this ED frequently for EtOH intoxication and hyperglycemia. Patient given 1L NS bolus with improvement of blood glucose to 270. On re-eval she was ambulatory without assistance. Stable for discharge home. Disposition - Disposition Disposition: HOME/ ROUTINE Disposition Time: 15:38 Condition: STABLE Instructions: Hyperglycemia, Adult (DC), Alcohol Abuse and Alcoholism (DC) Forms: [facility] (Amharic) Print Language: FIJIAN - Clinical Impression Clinical Impression: Hyperglycemia, Alcohol intoxication - Scribe Statement The provider has reviewed the documentation as recorded by the Alexanderibmegan Ramey Do Provider Attestation: All medical record entries made by the Scribe were at my direction and personally dictated by me. I have reviewed the chart and agree that the record accurately reflects my personal performance of the history, physical exam, medical decision making, and the department course for this patient. I have also personally directed, reviewed, and agree with the discharge instructions and disposition.
[2018-11-10 13:48] LABS: ALB/GLOB RATIO 0.9 (1.0-2.1); ALBUMIN 4.2 g/dL (3.5-5.0); ALT/SGPT 35 U/L (9-52); AST/SGOT 133 U/L (14-36); BLOOD UREA NITROGEN 7 mg/dL (7-17); CALCIUM 8.7 mg/dl (8.6-10.4); GFR NON-AFRICAN AMERICAN > 60
[2018-11-10 15:32] VITALS: BP 130/79; PULSE 82; RESP 20; TEMP 98.2; O2SAT 98
== END 2018-11-10 15:56 | disposition home or self-care (01) ==
LOC: C.ER 12:33
DX: F10.129 Alcohol abuse with intoxication, unspecified (principal); E11.65 Type 2 diabetes mellitus with hyperglycemia; E03.9 Hypothyroidism, unspecified; E78.00 Pure hypercholesterolemia, unspecified; I25.10 Atherosclerotic heart disease of native coronary artery without angina pectoris; J44.9 Chronic obstructive pulmonary disease, unspecified; M81.0 Age-related osteoporosis without current pathological fracture; Z72.0 Tobacco use

== ENCOUNTER 2018-11-10 20:43 | Emergency (ER) | payer MEDICARE, OTHER ==
[2018-11-10 20:44] VITALS: BMI 19.5
--- NOTE | 2018-11-10 21:03 | C.PDOC ---
History Of Present Illness 68 y/o female called EMS because she drank too much. Pt denies injury, fall, SI, HI and other associated sx. Time Seen by Provider: 11/10/18 20:48 Chief Complaint (Nursing): Substance Abuse History Per: Patient History/Exam Limitations: no limitations Onset/Duration Of Symptoms: Hrs Current Symptoms Are (Timing): Still Present Modifying Factor(s): Alcohol Past Medical History Reviewed: Historical Data, Nursing Documentation, Vital Signs Vital Signs: Last Vital Signs Temp 98.2 F 11/10/18 20:54 Pulse 73 11/10/18 20:54 Resp 16 11/10/18 20:54 BP 125/63 11/10/18 20:54 Pulse Ox 98 11/10/18 20:54 - Medical History PMH: Anemia, Anxiety, Arthritis, Asthma, Bipolar Disorder, Bronchitis, CAD, COPD, Depression, Diabetes, Gastritis, GERD, Hypercholesterolemia, Hypothyroidism, Osteoporosis, Peripheral Edema, Pneumonia, Pulmonary Embolism Surgical History: CABG, Cholecystectomy, Coronary Stent - [facility] Procedures ALCOHOL DETOXIFICATION (03/15/15) DETOXIFICATION SERVICES FOR SUBSTANCE ABUSE TREATMENT (10/16/18) EXCISION OF STOMACH, ENDO, DIAGN (05/29/18) FLUOROSCOPY OF MULT COR ART USING L OSM CONTRAST (03/10/18) 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 HELPER FOR SUBSTANCE ABUSE TREATMENT, PSYCHOEDUCATION (10/16/18) GROUP PSYCHOTHERAPY (02/03/18) INDIV PSYCHOTHERAPY FOR SUBSTANCE ABUSE TREATMENT, SUPPORT (10/16/18) INDIV PSYCHOTHERAPY FOR SUBSTANCE ABUSE, COGNITIV BEHAVIORAL (02/03/18) INDIVID PSYCHOTHERAP NEC (04/14/13) INDIVIDUAL PSYCHOTHERAPY, COGNITIVE-BEHAVIORAL (02/03/18) INTRODUCTION OF ANTI-INFLAM INTO RESP TRACT, VIA OPENING (01/25/17) INTRODUCTION OF SERUM/TOX/VACCINE INTO MUSCLE, PERC APPROACH (09/02/17) MEASURE OF CARDIAC SAMPL & PRESSURE, L HEART, PERC APPROACH (03/10/18) MEDICATION MANAGEMENT (10/16/18) OTHER GROUP THERAPY (04/14/13) PHYSICAL THERAPY NEC (06/12/14) Family History: States: Unknown Family Hx - Social History Hx Tobacco Use: Yes Hx Alcohol Use: Yes Hx Substance Use: No - Immunization History Hx Tetanus Toxoid Vaccination: No Hx Influenza Vaccination: No Hx Pneumococcal Vaccination: No Review Of Systems Constitutional: Negative for: Other (injury/fall) Cardiovascular: Negative for: Chest Pain Respiratory: Negative for: Shortness of Breath Gastrointestinal: Negative for: Nausea, Vomiting, Abdominal Pain Genitourinary: Negative for: Dysuria, Frequency, Incontinence Musculoskeletal: Negative for: Neck Pain, Back Pain Neurological: Negative for: Weakness, Numbness Psych: Negative for: Suicidal ideation, Other (HI) Physical Exam - Physical Exam Appears: Non-toxic, No Acute Distress, Other (intoxicated ) Skin: Warm, Dry Head: Atraumatic, Normacephalic, No Tenderness, No Swelling, No Abrasion, No Laceration Eye(s): bilateral: Normal Inspection Oral Mucosa: Moist, Other (alcohol on breath ) Throat: Normal Neck: Normal ROM, Supple Cardiovascular: Rhythm Regular Respiratory: Normal Breath Sounds Gastrointestinal/Abdominal: Soft, No Tenderness Neurological/Psych: Oriented x3, No Normal Speech (slurred speech ) ED Course And Treatment O2 Sat by Pulse Oximetry: 98 (RA) Pulse Ox Interpretation: Normal Medical Decision Making Medical Decision Making: Patient able to ambulate without difficulty, awake and alert. Stable for discharge home. Disposition - Disposition Disposition: HOME/ ROUTINE Disposition Time: 23:30 Condition: GOOD Additional Instructions: [employer], thank you for letting us take care of you today. Your provider was Croinne Schultz MD and you were treated for SUBSTANCE ABUSE. The emergency medical care you received today was directed at your acute symptoms. If you were prescribed any medication, please fill it and take as directed. It may take several days for your symptoms to resolve. Return to the Emergency Department if your symptoms worsen, do not improve, or if you have any other problems. Please contact your doctor or call one of the physicians/clinics you have been referred to that are listed on the Patient Visit Information form that is included in your discharge packet. Bring any paperwork you were given at discharge with you along with any medications you are taking to your follow up visit. Our treatment cannot replace ongoing medical care by a primary care provider outside of the emergency department. Thank you for allowing the Critical access hospital team to be part of your care today. If you had an X-Ray or CT scan: A Radiologist will review the ED reading if any change in treatment is needed we will contact you. If you had a blood, urine, or wound culture: It will take several days for the results, if any change in treatment is needed we will contact you. If you had an STI test: It will take 48 hours for the results. Please call after 1 week if you have not heard back. Instructions: Alcohol Abuse and Alcoholism (DC) Forms: [facility] (Italian) - Clinical Impression Clinical Impression: Alcohol abuse - Scribe Statement The provider has reviewed the documentation as recorded by the Scribe Ramey Do Provider Attestation: All medical record entries made by the Scribe were at my direction and personally dictated by me. I have reviewed the chart and agree that the record accurately reflects my personal performance of the history, physical exam, medical decision making, and the department course for this patient. I have also personally directed, reviewed, and agree with the discharge instructions and disposition.
[2018-11-10 21:04] VITALS: BP 125/63; PULSE 73; RESP 16; TEMP 98.2; O2SAT 98
== END 2018-11-10 21:36 | disposition home or self-care (01) ==
LOC: C.ER 20:43
DX: F10.10 Alcohol abuse, uncomplicated (principal); E11.9 Type 2 diabetes mellitus without complications; E78.00 Pure hypercholesterolemia, unspecified; I25.10 Atherosclerotic heart disease of native coronary artery without angina pectoris; E03.9 Hypothyroidism, unspecified; J44.9 Chronic obstructive pulmonary disease, unspecified; M81.0 Age-related osteoporosis without current pathological fracture; F31.9 Bipolar disorder, unspecified; Z72.0 Tobacco use; Z86.711 Personal history of pulmonary embolism

== ENCOUNTER 2018-11-28 22:01 | Emergency (ER) | payer MEDICARE, OTHER | END 2018-11-29 05:30 | disposition home or self-care (01) | LOC: C.ER 11-29 05:30 ==

== ENCOUNTER 2018-12-14 20:33 | Emergency (ER) | payer MEDICARE, OTHER ==
[2018-12-14 20:34] VITALS: BMI 25.0
[2018-12-14 20:40] VITALS: BP 123/76; PULSE 90; RESP 16; TEMP 97.9; O2SAT 95
--- NOTE | 2018-12-14 20:56 | C.PDOC ---
History Of Present Illness 68 year old female is brought into the emergency department via ambulance from home for alcohol abuse. Patient has multiple prior evaluations for the same presentation. Patient currently complains of abdominal pain. Time Seen by Provider: 12/14/18 20:51 Chief Complaint (Nursing): Abdominal Pain History Per: Patient History/Exam Limitations: no limitations Onset/Duration Of Symptoms: Hrs Current Symptoms Are (Timing): Still Present Context: Other (alcohol) Location Of Pain/Discomfort: Diffuse Quality Of Discomfort: "Pain" Associated Symptoms: Other (abdominal pain). denies: Fever, Chills, Nausea, Vomiting, Diarrhea Past Medical History Reviewed: Historical Data, Nursing Documentation, Vital Signs Vital Signs: Last Vital Signs Temp 97.9 F 12/14/18 20:37 Pulse 90 12/14/18 20:37 Resp 16 12/14/18 20:37 BP 123/76 12/14/18 20:37 Pulse Ox 95 12/14/18 20:37 - Medical History PMH: Anemia, Anxiety, Arthritis, Asthma, Bipolar Disorder, Bronchitis, CAD, COPD, Depression, Diabetes, Gastritis, GERD, Hypercholesterolemia, Hypothyroidism, Osteoporosis, Peripheral Edema, Pneumonia, Pulmonary Embolism Denies: Chronic Kidney Disease, Seizures, Sexually Transmitted Disease Surgical History: CABG, Cholecystectomy, Coronary Stent - [facility] Procedures ALCOHOL DETOXIFICATION (03/15/15) DETOXIFICATION SERVICES FOR SUBSTANCE ABUSE TREATMENT (10/16/18) EXCISION OF STOMACH, ENDO, DIAGN (05/29/18) FLUOROSCOPY OF MULT COR ART USING L OSM CONTRAST (03/10/18) GROUP DIRECTOR OF PUBLIC WORKS FOR SUBSTANCE ABUSE TREATMENT, PSYCHOEDUCATION (10/16/18) GROUP PSYCHOTHERAPY (02/03/18) INDIV PSYCHOTHERAPY FOR SUBSTANCE ABUSE TREATMENT, SUPPORT (10/16/18) INDIV PSYCHOTHERAPY FOR SUBSTANCE ABUSE, COGNITIV BEHAVIORAL (02/03/18) INDIVID PSYCHOTHERAP NEC (04/14/13) INDIVIDUAL PSYCHOTHERAPY, COGNITIVE-BEHAVIORAL (02/03/18) INTRODUCTION OF ANTI-INFLAM INTO RESP TRACT, VIA OPENING (01/25/17) INTRODUCTION OF SERUM/TOX/VACCINE INTO MUSCLE, PERC APPROACH (09/02/17) MEASURE OF CARDIAC SAMPL & PRESSURE, L HEART, PERC APPROACH (03/10/18) MEDICATION MANAGEMENT (10/16/18) OTHER GROUP THERAPY (04/14/13) PHYSICAL THERAPY NEC (06/12/14) Family History: States: No Known Family Hx - Social History Hx Tobacco Use: Yes Hx Alcohol Use: Yes Hx Substance Use: No - Immunization History Hx Tetanus Toxoid Vaccination: No Hx Influenza Vaccination: No Hx Pneumococcal Vaccination: No Review Of Systems Except As Marked, All Systems Reviewed And Found Negative. Constitutional: Negative for: Fever, Chills Cardiovascular: Negative for: Chest Pain, Palpitations Respiratory: Negative for: Cough, Shortness of Breath Gastrointestinal: Positive for: Abdominal Pain. Negative for: Nausea, Vomiting Neurological: Positive for: Other (alcohol intoxication) Physical Exam - Physical Exam Appears: Non-toxic, No Acute Distress Skin: Normal Color, Warm, Dry Head: Atraumatic, Normacephalic Eye(s): bilateral: Normal Inspection, PERRL, EOMI Nose: Normal Oral Mucosa: Moist, Other (alcohol on breath) Neck: Normal, Supple Chest: Symmetrical, No Tenderness Cardiovascular: Rhythm Regular, No Murmur Respiratory: Normal Breath Sounds, No Rales, No Rhonchi, No Wheezing Gastrointestinal/Abdominal: Soft, No Tenderness, No Guarding, No Rebound Extremity: Normal ROM Neurological/Psych: Oriented x3, Normal Speech, Normal Cognition ED Course And Treatment O2 Sat by Pulse Oximetry: 95 (RA) Pulse Ox Interpretation: Normal Medical Decision Making Medical Decision Making: benign belly glucose <400 ok for d/c. Disposition Doctor Will See Patient In The: Office Counseled Patient/Family Regarding: Studies Performed, Diagnosis - Disposition Referrals: Alcoholics Anonymous [Outside] [facility] [Outside] [employer] [facility] [Outside] [facility] [Outside] [employer] [facility] [Outside] Disposition: HOME/ ROUTINE Disposition Time: 20:56 Condition: GOOD Instructions: Alcohol Use - When Is Drinking a Problem? Forms: [employer] (Citizen [place]) Print Language: GUATEMALAN - Clinical Impression Clinical Impression: Alcohol abuse - Scribe Statement The provider has reviewed the documentation as recorded by the Scribe (Darinel Chang) Provider Attestation: All medical record entries made by the Scribe were at my direction and personally dictated by me. I have reviewed the chart and agree that the record accurately reflects my personal performance of the history, physical exam, medical decision making, and the department course for this patient. I have also personally directed, reviewed, and agree with the discharge instructions and disposition.
== END 2018-12-14 21:44 | disposition home or self-care (01) ==
LOC: C.ER 20:33
DX: F10.10 Alcohol abuse, uncomplicated (principal); E11.9 Type 2 diabetes mellitus without complications

== ENCOUNTER 2018-12-18 08:53 | Inpatient (IN) | payer MEDICARE, OTHER ==
[2018-12-18] MEDS ORDERED: Sodium Chloride 0.9% 1,000 ML IV ONE (09:09)
--- NOTE | 2018-12-18 09:09 | C.PDOC ---
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 UNK BASELINE GLUC. NO FEVER,. +NV. HO ETOH ABUSE, LAST DRINK YEST MORNING. NO ABD PAIN. ALSO CO ASTHMA EXAC, COMPLIANT W MEDS EXAM MILD DIST HEENT NO TONGUE FASIC LUNGS CTA B/L NO OCC WHEEZE EXP SPEAKING FULL SENTENCES CV RRR NO EDEMA ABD NEG Time Seen by Provider: 12/18/18 08:57 History Per: Patient History/Exam Limitations: no limitations Onset/Duration Of Symptoms: Days Current Symptoms Are (Timing): Still Present Severity: Moderate Past Medical History Reviewed: Historical Data, Nursing Documentation, Vital Signs - Medical History PMH: Anemia, Anxiety, Arthritis, Asthma, Bipolar Disorder, Bronchitis, CAD, COPD, Depression, Diabetes, Gastritis, GERD, Hypercholesterolemia, Hypothyroidism, Osteoporosis, Peripheral Edema, Pneumonia, Pulmonary Embolism Denies: Chronic Kidney Disease, Seizures, Sexually Transmitted Disease Surgical History: CABG, Cholecystectomy, Coronary Stent - [facility] Procedures ALCOHOL DETOXIFICATION (03/15/15) DETOXIFICATION SERVICES FOR SUBSTANCE ABUSE TREATMENT (10/16/18) EXCISION OF STOMACH, ENDO, DIAGN (05/29/18) FLUOROSCOPY OF MULT COR ART USING L OSM CONTRAST (03/10/18) GROUP CEMENT RUBBER FOR SUBSTANCE ABUSE TREATMENT, PSYCHOEDUCATION (10/16/18) GROUP PSYCHOTHERAPY (02/03/18) INDIV PSYCHOTHERAPY FOR SUBSTANCE ABUSE TREATMENT, SUPPORT (10/16/18) INDIV PSYCHOTHERAPY FOR SUBSTANCE ABUSE, COGNITIV BEHAVIORAL (02/03/18) INDIVID PSYCHOTHERAP NEC (04/14/13) INDIVIDUAL PSYCHOTHERAPY, COGNITIVE-BEHAVIORAL (02/03/18) INTRODUCTION OF ANTI-INFLAM INTO RESP TRACT, VIA OPENING (01/25/17) INTRODUCTION OF SERUM/TOX/VACCINE INTO MUSCLE, PERC APPROACH (09/02/17) MEASURE OF CARDIAC SAMPL & PRESSURE, L HEART, PERC APPROACH (03/10/18) MEDICATION MANAGEMENT (10/16/18) OTHER GROUP THERAPY (04/14/13) PHYSICAL THERAPY NEC (06/12/14) Family History: States: No Known Family Hx - Social History Hx Tobacco Use: Yes Hx Alcohol Use: Yes Hx Substance Use: No - Immunization History Hx Tetanus Toxoid Vaccination: No Hx Influenza Vaccination: No Hx Pneumococcal Vaccination: No Review Of Systems Except As Marked, All Systems Reviewed And Found Negative. Constitutional: Negative for: Fever, Chills Gastrointestinal: Positive for: Nausea, Vomiting. Negative for: Abdominal Pain Physical Exam - Physical Exam Appears: Other (mild distress) Skin: Normal Color, Warm, Dry Head: Atraumatic, Normacephalic Eye(s): bilateral: Normal Inspection Tongue: Other (no tongue fasciculation) Cardiovascular: Rhythm Regular (RRR) Respiratory: No Rales, No Rhonchi, Wheezing (occasional expiratory wheezing), Other (speaking full sentences) Gastrointestinal/Abdominal: Normal Exam, Soft, No Tenderness, No Guarding, No Rebound Extremity: Normal ROM, Other (no edema) ED Course And Treatment - Laboratory Results Result Diagrams: 12/18/18 09:39 12/18/18 10:22 ECG: Interpreted By Me ECG Rhythm: Sinus Tachycardia Rate From EC O2 Sat by Pulse Oximetry: 99 (RA) Pulse Ox Interpretation: Normal - Other Rad CXR X-Ray: Viewed By Me, Read By Radiologist Interpretation: Date of service: 12/18/2018. PROCEDURE: CHEST RADIOGRAPH, 1 VIEW. HISTORY: Diabetic. COMPARISON: 10/05/2018. FINDINGS: LUNGS: No consolidation. PLEURA: No pneumothorax or pleural fluid seen. CARDIOVASCULAR: There is presence of aortic atherosclerotic calcification on x-ray. Mild cardiomegaly suspect mild concomitant pulmonary venous congestion-an interval change is suspect. OSSEOUS STRUCTURES: Mild thoracic spondylosis. Minimal bilateral shoulder arthrosis. VISUALIZED UPPER ABDOMEN: Normal. OTHER FINDINGS: None. IMPRESSION: Interval mild pulmonary venous congestion suspect. No consolidation or infiltrate appreciated. Other findings as above. Progress - Re-Evaluation Re-evaluation Note: 12/18/18 10:39 CODE SEPSIS ACTIVATED. 12/18/18 12:14 D/W DR FLOR COMER BREWERY REPRESENTATIVE WILL ADMIT IMPROVED NSR - Data Reviewed Data Reviewed: Lab, Diagnostic imaging, EKG, Old records Disposition Counseled Patient/Family Regarding: Studies Performed, Diagnosis - Disposition Disposition: HOSPITALIZED Disposition Time: 12:13 Condition: STABLE - POA Present On Arrival: Poor Glycemic Control - Clinical Impression Clinical Impression: Sepsis, Pneumonia, Alcohol withdrawal
[2018-12-18] MEDS ORDERED: Albuterol-Ipratrop 3 mg / 0.5 (3 ml) UD IH STA (09:10)
--- NOTE | 2018-12-18 09:45 | RAD ---
Date of service: 12/18/2018 PROCEDURE: CHEST RADIOGRAPH, 1 VIEW HISTORY: Diabetic COMPARISON: 10/05/2018 FINDINGS: LUNGS: No consolidation. PLEURA: No pneumothorax or pleural fluid seen. CARDIOVASCULAR: There is presence of aortic atherosclerotic calcification on x-ray. Mild cardiomegaly suspect mild concomitant pulmonary venous congestion-an interval change is suspect. OSSEOUS STRUCTURES: Mild thoracic spondylosis. Minimal bilateral shoulder arthrosis. VISUALIZED UPPER ABDOMEN: Normal. OTHER FINDINGS: None. IMPRESSION: Interval mild pulmonary venous congestion suspect. No consolidation or infiltrate appreciated. Other findings as above.
[2018-12-18 09:49] LABS: BASO # 0.1 K/uL (0.0-0.2); EOS % 0.1 % (0.0-4.0); HEMOGLOBIN 11.8 g/dL (11.0-16.0); LYMPH # 0.7 K/uL (1.0-4.3); LYMPH % 9.7 % (20.0-40.0); MEAN CELL VOLUME 96.5 fL (81.0-99.0); MEAN CORPUSCULAR HGB CONC 34.2 g/dL (33.0-37.0); MEAN PLATELET VOLUME 9.9 fL (7.2-11.7); MONO # 0.7 K/uL (0.0-0.8); MONO % 10.2 % (0.0-10.0); NEUT # 5.3 K/uL (1.8-7.0); NRBC % 0.1 % (0.0-2.0); PLATELET COUNT 135 K/uL (130-400); RBC 3.59 Mil/uL (3.80-5.20); RED CELL DISTRIBUTION WIDTH 15.9 % (11.5-14.5); WHITE BLOOD COUNT 6.7 K/uL (4.8-10.8)
[2018-12-18 09:56] LABS: VENOUS BLOOD GAS BASE EXCESS 2.7 mmol/L (0.0-2.0); VENOUS BLOOD GAS PCO2 44 mmHg (40-60); VENOUS BLOOD GAS PO2 56 mm/Hg (30-55); VENOUS BLOOD PH 7.41 (7.32-7.43)
[2018-12-18 10:12] LABS: ANISOCYTOSIS SLIGHT; BANDS 13 % (0-2); BASOPHIL 1 % (0-2); LYMPHOCYTE 8 % (20-40); MONOCYTE 13 % (0-10); NEUTROPHIL 65 % (50-75); PLATELET ESTIMATE NORMAL (NORMAL); TOTAL CELLS COUNTED 100
[2018-12-18 10:13] LABS: STOMATOCYTES SLIGHT; TARGET CELLS MODERATE
[2018-12-18] MEDS ORDERED: Albuterol-Ipratrop 3 mg / 0.5 (3 ml) UD ONE (10:14)
[2018-12-18] MEDS ORDERED: Sodium Chloride 0.9% 250 ML IV ONE (10:14)
[2018-12-18] MEDS ORDERED: Sodium Chloride 0.9% 2,000 ML IV ONE (10:29)
[2018-12-18] MEDS ORDERED: Vancomycin 1 gm/NS 200 ml 1 GM/200 ML BAG IVPB STA (10:29)
[2018-12-18] MEDS ORDERED: Aztreonam 2 GM in Sodium Chloride 0.9% 100 ML IVPB STA (10:32)
[2018-12-18] MEDS ORDERED: Sodium Chloride 0.9% 2,000 ML ONE (10:53)
[2018-12-18 11:01] LABS: INR 1.3; PROTHROMBIN TIME 13.7 SECONDS (9.7-12.2)
[2018-12-18 11:09] LABS: ALB/GLOB RATIO 0.9 (1.0-2.1); ALBUMIN 3.8 g/dL (3.5-5.0); ALT/SGPT 151 U/L (9-52); AST/SGOT 411 U/L (14-36); BLOOD UREA NITROGEN 6 mg/dL (7-17); CALCIUM 9.6 mg/dl (8.6-10.4); GFR NON-AFRICAN AMERICAN > 60
[2018-12-18 11:28] LABS: SQUAMOUS EPITHIAL < 1 /hpf (0-5); URINE BACTERIA RARE (<OCC); URINE BILIRUBIN NEGATIVE (NEGATIVE); URINE BLOOD NEGATIVE (NEGATIVE); URINE CLARITY Clear (Clear); URINE COLOR Yellow (YELLOW); URINE GLUCOSE (UA) 3+ mg/dL (Normal); URINE LEUKOCYTE ESTERASE NEG Leu/uL (Negative); URINE PROTEIN NEGATIVE (NEGATIVE)
[2018-12-18 11:32] LABS: BARBITURATES, UR NEGATIVE (NEGATIVE); BENZODIAZEPINES, UR NEGATIVE (NEGATIVE); OPIATES, UR NEGATIVE (NEGATIVE); PHENCYCLIDINE, UR NEGATIVE (NEGATIVE)
[2018-12-18 13:41] LABS: VENOUS BLOOD GAS BASE EXCESS -7.6 mmol/L (0.0-2.0); VENOUS BLOOD GAS PCO2 28 mmHg (40-60); VENOUS BLOOD GAS PO2 51 mm/Hg (30-55); VENOUS BLOOD PH 7.37 (7.32-7.43)
[2018-12-18 17:54] VITALS: RESP 20
[2018-12-18] MEDS ORDERED: Multivitamin (MVI) 10 ML, Thiamine 100 MG, Folic Acid 1 MG in Sodium Chloride 0.9% 1,00... IV ONE (19:30)
[2018-12-18] MEDS: Sodium Chloride 0.9% 1,000 ML IV SCH (19:55)
[2018-12-18] MEDS: Aztreonam 2 GM in Sodium Chloride 0.9% 100 ML IVPB SCH (19:55)
[2018-12-18] MEDS: metroNIDAZOLE IV 500 mg/100 ml 500 MG/100 ML BAG IVPB SCH (19:55)
--- NOTE | 2018-12-18 23:55 | CP.PCM.HP ---
Present on Admission - Present on Admission Any Indicators Present on Admission: No Past Patient History - Infectious Disease Hx of Infectious Diseases: None - Past Medical History & Family History Past Medical History?: Yes - Past Social History Smoking Status: Current Some Days Smoker - CARDIAC Hx Cardiac Disorders: Yes Hx Hypercholesterolemia: Yes Hx Peripheral Edema: Yes - PULMONARY Hx Respiratory Disorders: Yes Hx Asthma: Yes Hx Bronchitis: Yes Hx Chronic Obstructive Pulmonary Disease (COPD): Yes Hx Pneumonia: Yes Hx Pulmonary Embolism: Yes - NEUROLOGICAL Hx Neurological Disorder: No Hx Seizures: No - HEENT Hx HEENT Problems: No - RENAL Hx Chronic Kidney Disease: No - ENDOCRINE/METABOLIC Hx Endocrine Disorders: Yes Hx Hypothyroidism: Yes - HEMATOLOGICAL/ONCOLOGICAL Hx Blood Disorders: Yes Hx Anemia: Yes - INTEGUMENTARY Hx Dermatological Problems: No - MUSCULOSKELETAL/RHEUMATOLOGICAL Hx Musculoskeletal Disorders: Yes Hx Arthritis: Yes Hx Falls: No Hx Osteoporosis: Yes - GASTROINTESTINAL Hx Gastrointestinal Disorders: Yes Hx Gastritis: Yes - GENITOURINARY/GYNECOLOGICAL Hx Genitourinary Disorders: No Hx Sexually Transmitted Disorders: No - PSYCHIATRIC Hx Psychophysiologic Disorder: Yes Hx Anxiety: Yes Hx Bipolar Disorder: Yes Hx Depression: Yes Hx Substance Use: No - SURGICAL HISTORY Hx Surgeries: Yes Hx Cholecystectomy: Yes Hx Coronary Artery Bypass Graft: Yes Hx Coronary Stent: Yes - ANESTHESIA Hx Anesthesia: Yes Hx Anesthesia Reactions: No Hx Malignant Hyperthermia: No Meds Allergies/Adverse Reactions: Allergies Allergy/AdvReac Type Severity Reaction Status Date / Time ceftriaxone Allergy Intermediate RASH Verified 12/14/18 20:40 moxifloxacin HCl Allergy Intermediate RASH Verified 12/14/18 20:40 [From Avelox] Results - Vital Signs Recent Vital Signs: Last Vital Signs Temp 97.2 F L 12/18/18 17:14 Pulse 92 H 12/18/18 18:00 Resp 20 12/18/18 17:14 BP 162/91 H 12/18/18 17:14 Pulse Ox 99 12/18/18 17:14 - Labs Result Diagrams: 12/18/18 09:39 12/18/18 10:22 Labs: Laboratory Results - last 24 hr 12/18/18 12/18/18 12/18/18 09:04 09:39 09:52 WBC 6.7 RBC 3.59 L Hgb 11.8 Hct 34.6 MCV 96.5 MCH 33.0 H MCHC 34.2 RDW 15.9 H Plt Count 135 MPV 9.9 Neut % (Auto) 79.0 H Lymph % (Auto) 9.7 L [place] % (Auto) 10.2 H Eos % (Auto) 0.1 Baso % (Auto) 1.0 Neut # (Auto) 5.3 Lymph # (Auto) 0.7 L [place] # (Auto) 0.7 Eos # (Auto) 0.0 Baso # (Auto) 0.1 Neutrophils % (Manual) 65 Band Neutrophils % 13 H* Lymphocytes % (Manual) 8 L Monocytes % (Manual) 13 H Basophils % (Manual) 1 Platelet Estimate Normal Anisocytosis (manual) Slight Target Cells Moderate Stomatocytes Slight PT INR APTT pO2 56 H VBG pH 7.41 VBG pCO2 44 VBG HCO3 26.8 VBG Total CO2 29.3 H VBG O2 Sat (Calc) 88.5 H VBG Base Excess 2.7 H VBG Potassium 6.0 H Sodium 133.0 Chloride 100.0 Glucose 286 H Lactate 3.2 H Crit Value Called To Crit Value Called By Crit Value Read Back Blood Gas Notified Time Potassium Carbon Dioxide Anion Gap BUN Creatinine Est GFR ( Amer) Est GFR (Non-Af Amer) POC Glucose (mg/dL) 335 H Random Glucose Calcium Phosphorus Magnesium Total Bilirubin AST ALT Alkaline Phosphatase Total Protein Albumin Globulin Albumin/Globulin Ratio Venous Blood Potassium 6.0 H Urine Color Urine Clarity Urine pH Ur Specific [place] Urine Protein Urine Glucose (UA) Urine Ketones Urine Blood Urine Nitrate Urine Bilirubin Urine Urobilinogen Ur Leukocyte Esterase Urine WBC (Auto) Urine RBC (Auto) Ur Squamous Epith Cells Urine Bacteria Urine Opiates Screen Urine Methadone Screen Ur Barbiturates Screen Ur Phencyclidine Scrn Ur Amphetamines Screen U Benzodiazepines Scrn U Oth Cocaine Metabols U Cannabinoids Screen Alcohol, Quantitative 12/18/18 12/18/18 12/18/18 10:22 10:46 10:52 WBC RBC Hgb Hct MCV MCH MCHC RDW Plt Count MPV Neut % (Auto) Lymph % (Auto) [place] % (Auto) Eos % (Auto) Baso % (Auto) Neut # (Auto) Lymph # (Auto) [place] # (Auto) Eos # (Auto) Baso # (Auto) Neutrophils % (Manual) Band Neutrophils % Lymphocytes % (Manual) Monocytes % (Manual) Basophils % (Manual) Platelet Estimate Anisocytosis (manual) Target Cells Stomatocytes PT 13.7 H INR 1.3 APTT 30 pO2 VBG pH VBG pCO2 VBG HCO3 VBG Total CO2 VBG O2 Sat (Calc) VBG Base Excess VBG Potassium Sodium 133 Chloride 96 L Glucose Lactate Crit Value Called To Crit Value Called By Crit Value Read Back Blood Gas Notified Time Potassium 4.0 Carbon Dioxide 27 Anion Gap 14 BUN 6 L Creatinine 0.3 L Est GFR ( Amer) > 60 Est GFR (Non-Af Amer) > 60 POC Glucose (mg/dL) Random Glucose 250 H D Calcium 9.6 Phosphorus 3.5 Magnesium 1.5 L Total Bilirubin 3.0 H AST 411 H D ALT 151 H D Alkaline Phosphatase 295 H D Total Protein 7.9 Albumin 3.8 Globulin 4.1 H Albumin/Globulin Ratio 0.9 L Venous Blood Potassium Urine Color Yellow Urine Clarity Clear Urine pH 8.0 Ur Specific [place] 1.007 Urine Protein Negative Urine Glucose (UA) 3+ H Urine Ketones Negative Urine Blood Negative Urine Nitrate Negative Urine Bilirubin Negative Urine Urobilinogen 2.0 H Ur Leukocyte Esterase Neg Urine WBC (Auto) 4 Urine RBC (Auto) 1 Ur Squamous Epith Cells < 1 Urine Bacteria Rare Urine Opiates Screen Urine Methadone Screen Ur Barbiturates Screen Ur Phencyclidine Scrn Ur Amphetamines Screen U Benzodiazepines Scrn U Oth Cocaine Metabols U Cannabinoids Screen Alcohol, Quantitative < 10 12/18/18 12/18/18 10:52 13:35 WBC RBC Hgb Hct MCV MCH MCHC RDW Plt Count MPV Neut % (Auto) Lymph % (Auto) [place] % (Auto) Eos % (Auto) Baso % (Auto) Neut # (Auto) Lymph # (Auto) [place] # (Auto) Eos # (Auto) Baso # (Auto) Neutrophils % (Manual) Band Neutrophils % Lymphocytes % (Manual) Monocytes % (Manual) Basophils % (Manual) Platelet Estimate Anisocytosis (manual) Target Cells Stomatocytes PT INR APTT pO2 51 VBG pH 7.37 VBG pCO2 28 L VBG HCO3 18.7 VBG Total CO2 17.1 L VBG O2 Sat (Calc) 86.2 H VBG Base Excess -7.6 L VBG Potassium 2.0 L* Sodium 141.0 Chloride 119.0 H Glucose 145 H Lactate 0.9 Crit Value Called To micah Cordero md Crit Value Called By Emily rivera,rt Crit Value Read Back Y Blood Gas Notified Time 1341 Potassium Carbon Dioxide Anion Gap BUN Creatinine Est GFR ( Amer) Est GFR (Non-Af Amer) POC Glucose (mg/dL) Random Glucose Calcium Phosphorus Magnesium Total Bilirubin AST ALT Alkaline Phosphatase Total Protein Albumin Globulin Albumin/Globulin Ratio Venous Blood Potassium 2.0 L* Urine Color Urine Clarity Urine pH Ur Specific [place] Urine Protein Urine Glucose (UA) Urine Ketones Urine Blood Urine Nitrate Urine Bilirubin Urine Urobilinogen Ur Leukocyte Esterase Urine WBC (Auto) Urine RBC (Auto) Ur Squamous Epith Cells Urine Bacteria Urine Opiates Screen Negative Urine Methadone Screen Negative Ur Barbiturates Screen Negative Ur Phencyclidine Scrn Negative Ur Amphetamines Screen Negative U Benzodiazepines Scrn Negative U Oth Cocaine Metabols Negative U Cannabinoids Screen Negative Alcohol, Quantitative
[2018-12-19] MEDS: Aztreonam 2 GM in Sodium Chloride 0.9% 100 ML IVPB SCH ×3 (02:27→18:32)
[2018-12-19] MEDS: metroNIDAZOLE IV 500 mg/100 ml 500 MG/100 ML BAG IVPB SCH ×3 (04:02→18:32)
[2018-12-19] MEDS: Sodium Chloride 0.9% 1,000 ML IV SCH ×2 (08:00→15:00)
[2018-12-19] MEDS ORDERED: Midazolam 2 MG/2 ML VIAL ONE (08:17)
[2018-12-19] MEDS ORDERED: Glucagon Recombinant 1 mg Inj IM PRN (08:51)
[2018-12-19] MEDS ORDERED: Dextrose 50% SYRINGE Inj (50 ml) IV PRN (08:51)
[2018-12-19] MEDS: Enoxaparin 30 mg Syringe SC SCH (11:00)
--- NOTE | 2018-12-19 11:25 | US ---
Date of service: 12/19/2018 HISTORY: CBD dilatation COMPARISON: Comparison is made with the previous CT dated 10/30/2018 previous ultrasound dated 05/30/2018 TECHNIQUE: Sonographic evaluation of the abdomen. FINDINGS: LIVER: Measures 14.5 cm. Heterogeneous with diffuse increased echogenicity of the liver parenchyma. No mass. No intrahepatic bile duct dilatation. GALLBLADDER: Status post cholecystectomy COMMON BILE DUCT: Measures 3.2 mm. No stones. No dilatation. PANCREAS: Obscured by overlying bowel gas. RIGHT KIDNEY: Measures 11.9 x 4.5 x 5cm. Normal echogenicity. No calculus, mass, or hydronephrosis. LEFT KIDNEY: Measures 13 x 5.3 x 5.2cm. Normal echogenicity. No calculus, mass, or hydronephrosis. SPLEEN: Normal in size and contour. No mass. AORTA: No aneurysmal dilatation. IVC: Unremarkable. OTHER FINDINGS: None. IMPRESSION: Echogenic heterogeneous liver likely represent hepatic steatosis. Suspicious for mild cirrhosis. Normal caliber of the common bile duct. Status post cholecystectomy.
[2018-12-19 11:51] LABS: BASO # 0.1 K/uL (0.0-0.2); EOS # 0.1 K/uL (0.0-0.7); EOS % 1.1 % (0.0-4.0); HEMOGLOBIN 12.7 g/dL (11.0-16.0); LYMPH % 18.3 % (20.0-40.0); MEAN CELL VOLUME 98.2 fL (81.0-99.0); MEAN CORPUSCULAR HEMOGLOBIN 32.6 pg (27.0-31.0); MEAN CORPUSCULAR HGB CONC 33.2 g/dL (33.0-37.0); MONO # 0.4 K/uL (0.0-0.8); MONO % 8.2 % (0.0-10.0); NEUT # 3.9 K/uL (1.8-7.0); NEUT % 71.4 % (50.0-75.0); NRBC % 0.3 % (0.0-2.0); RBC 3.89 Mil/uL (3.80-5.20); RED CELL DISTRIBUTION WIDTH 16.1 % (11.5-14.5); WHITE BLOOD COUNT 5.4 K/uL (4.8-10.8)
[2018-12-19 12:23] LABS: BLOOD UREA NITROGEN 10 mg/dL (7-17); CALCIUM 9.5 mg/dl (8.6-10.4); GFR NON-AFRICAN AMERICAN > 60
[2018-12-19] MEDS: (Novolog) Insulin Aspart, Recombinant 100 u/ml 10 ml vial SC SCH ×3 (12:31→22:00)
[2018-12-19] MEDS ORDERED: (Lantus) Insulin Glargine, Recombinant SC SCH ×2 (16:00)
--- NOTE | 2018-12-19 18:33 | CARD ---
APPROVED REPORT Date of service: 12/18/2018 EKG Measurement Heart [id number] <Conclusion> Sinus tachycardia Possible Left atrial enlargement Left bundle branch block Abnormal ECG
--- NOTE | 2018-12-19 23:43 | CP.PCM.PN ---
Subjective - Date & Time of Evaluation Date of Evaluation: 12/19/18 Time of Evaluation: 12:00 - Subjective Subjective: dictated Objective - Vital Signs/Intake and Output Vital Signs (last 24 hours): Temp Pulse Resp BP Pulse Ox 98.9 F 102 H 20 102/65 96 12/19/18 15:48 12/19/18 16:00 12/19/18 15:48 12/19/18 15:48 12/19/18 15:48 Intake and Output: 12/19/18 12/20/18 18:59 06:59 Intake Total 400 Balance 400 - Medications Medications: Current Medications Alprazolam (Xanax) 0.5 mg PO TID PRN PRN Reason: Anxiety Last Admin: 12/19/18 21:22 Dose: 0.5 mg Dextrose (Dextrose 50% Inj) 0 ml IV STAT PRN; Protocol PRN Reason: Hypoglycemia Protocol Dextrose (Glutose 15) 0 gm PO ONCE PRN; Protocol PRN Reason: Hypoglycemia Protocol Enoxaparin Sodium (Lovenox) 30 mg SC DAILY [facility] Last Admin: 12/19/18 11:00 Dose: 30 mg Glucagon (Glucagen Diagnostic Kit) 0 mg IM STAT PRN; Protocol PRN Reason: Hypoglycemia Protocol Aztreonam 2 gm/ Sodium (Chloride) 100 mls @ 200 mls/hr IVPB Q8H [facility]; Protocol Last Admin: 12/19/18 18:32 Dose: 200 mls/hr Metronidazole (Flagyl) 500 mg in 100 mls @ 100 mls/hr IVPB Q8H [facility]; Protocol Last Admin: 12/19/18 18:32 Dose: 100 mls/hr Sodium Chloride (Sodium Chloride 0.9%) 1,000 mls @ 100 mls/hr IV .Q10H [facility] Last Admin: 12/19/18 15:00 Dose: Not Given Dextrose (Dextrose 5% In Water 1000 Ml) 1,000 mls @ 0 mls/hr IV .Q0M PRN; Protocol PRN Reason: Hypoglycemia Protocol Insulin Aspart (Novolog) 0 unit SC ACHS [facility]; Protocol Last Admin: 12/19/18 22:00 Dose: 2 units Insulin Glargine (Lantus) 15 unit SC HS [facility] Last Admin: 12/19/18 16:36 Dose: 15 units Sitagliptin Phosphate (Januvia) 100 mg PO DAILY [facility] Last Admin: 12/19/18 15:14 Dose: 100 mg - Labs Labs: 12/19/18 10:15 12/19/18 10:15 PT 13.7 SECONDS (9.7-12.2) H 12/18/18 10:46 INR 1.3 12/18/18 10:46 APTT 30 SECONDS (21-34) 12/18/18 10:46
[2018-12-20] MEDS: Aztreonam 2 GM in Sodium Chloride 0.9% 100 ML IVPB SCH ×2 (02:08→10:41)
[2018-12-20] MEDS: metroNIDAZOLE IV 500 mg/100 ml 500 MG/100 ML BAG IVPB SCH ×2 (03:22→11:38)
[2018-12-20] MEDS: Sodium Chloride 0.9% 1,000 ML IV SCH ×2 (03:26→11:31)
--- NOTE | 2018-12-20 04:27 | PN ---
DATE: 12/19/2018 SUBJECTIVE: The patient has still generalized weakness, palpitation, weakness, dizziness, headache and abdominal pain. She has some shaking. She denies any fever, chills. There is no nausea, vomiting, diarrhea. There is no cough, sore throat, runny nose. Her electrolytes are improving. Sugars are high. She is being started on insulin. PHYSICAL EXAMINATION: VITAL SIGNS: Blood pressure 102/65, pulse 102, respiratory rate 20, temperature 98.9. LUNGS: Clear. No rales, no rhonchi. CARDIOVASCULAR SYSTEM: S1, S2. Regular. ABDOMEN: Enlarged liver, nontender and trace ascites. ASSESSMENT: 1. Alcoholic liver disease. 2. Rule out septicemia. 3. Rule out alcohol-induced withdrawal. 4. Dehydration. PLAN: Continue current medications. IV fluids. DT precaution. Antibiotics. Monitor the patient. Jaron Minor MD
--- NOTE | 2018-12-20 07:10 | HP ---
CHIEF COMPLAINT: Generalized weakness. HISTORY OF PRESENT ILLNESS: This is a 68-year-old female with history of alcoholism, type 2 diabetes, on insulin, noncompliant with diet, medications and followup. She drinks daily. She drinks in large quantity. She drinks in the morning. She drinks in order to prevent withdrawal. She came in with blood sugar over 700 at home with generalized weakness, polyuria, polydipsia, polyphagia, nausea, and vomiting. No fever. The patient has diffuse abdominal discomfort. She denies any dysuria, hematuria, or pyuria. She denies any sneezing, itchy eyes, or itchy nose. The patient is noncompliant with her diet, medications and followup. She denied any chest pain. She has palpitations, weakness, and dizziness. There is no cough, sore throat, or running nose. There is no history of trauma, fall, or loss of consciousness. There is no history of seizure-like activity. ALLERGIES: SHE IS ALLERGIC TO ROCEPHIN AND AVELOX. SOCIAL HISTORY: She smokes and she drinks. FAMILY HISTORY: Noncontributory. CURRENT MEDICATIONS: Xanax, trazodone, metformin, and insulin. PHYSICAL EXAMINATION: GENERAL: An elderly female in distress and weakness. VITAL SIGNS: Blood pressure 162/91, pulse 98, respiratory rate 20, temperature 97.2. SKIN: Dry, poor turgor. HEENT: Atraumatic and normocephalic. Negative pallor. Negative jaundice. Extraocular movements are intact. NECK: Supple. No JVD. No lymph node. No thyromegaly. No carotid bruit. CHEST WALL: Bilateral symmetrical expansion. No tenderness. LUNGS: Clear. No rales. No rhonchi. CARDIOVASCULAR SYSTEM: PMI in the fifth intercostal space. No heave. No thrill. S1 and S2, regular. ABDOMEN: Soft, diffuse tenderness. No guarding. No rebound. No rigidity. Bowel sounds are present. ASSESSMENT: 1. Acute alcohol-induced gastritis. 2. Alcohol withdrawal delirium. 3. Alcoholic liver disease. PLAN: Admit. Abdominal ultrasound. Antibiotics. Rodriguez culture. Monitor the patient. Jaron Minor MD [facility] # [id number]
[2018-12-20] MEDS: (Novolog) Insulin Aspart, Recombinant 100 u/ml 10 ml vial SC SCH ×2 (07:53→11:43)
[2018-12-20 09:10] LABS: BASO % 1.1 % (0.0-2.0); EOS # 0.1 K/uL (0.0-0.7); EOS % 1.6 % (0.0-4.0); HEMOGLOBIN 12.8 g/dL (11.0-16.0); LYMPH # 0.9 K/uL (1.0-4.3); LYMPH % 19.7 % (20.0-40.0); MEAN CORPUSCULAR HEMOGLOBIN 33.1 pg (27.0-31.0); MEAN CORPUSCULAR HGB CONC 33.1 g/dL (33.0-37.0); MONO # 0.5 K/uL (0.0-0.8); MONO % 9.9 % (0.0-10.0); NEUT # 3.2 K/uL (1.8-7.0); NEUT % 67.7 % (50.0-75.0); NRBC % 0.2 % (0.0-2.0); RBC 3.85 Mil/uL (3.80-5.20); RED CELL DISTRIBUTION WIDTH 16.6 % (11.5-14.5); WHITE BLOOD COUNT 4.7 K/uL (4.8-10.8)
[2018-12-20 09:13] VITALS: BP 105/64; PULSE 91; TEMP 97.4; O2SAT 97
[2018-12-20 09:27] LABS: ALB/GLOB RATIO 0.9 (1.0-2.1); ALT/SGPT 88 U/L (9-52); AST/SGOT 174 U/L (14-36); BILIRUBIN,DIRECT 1.2 mg/dL (0.0-0.4); BLOOD UREA NITROGEN 11 mg/dL (7-17); CALCIUM 8.3 mg/dl (8.6-10.4); GFR NON-AFRICAN AMERICAN > 60
[2018-12-20] MEDS: Enoxaparin 30 mg Syringe SC SCH (10:37)
--- NOTE | 2018-12-20 13:59 | CP.PCM.PN ---
Subjective - Date & Time of Evaluation Date of Evaluation: 12/20/18 Time of Evaluation: 11:00 - Subjective Subjective: patient seen today, denies any complaints OOB ambulating the hallway BS better controlled with insulin an djanuvai labs and vss reviewed- stable a febrile Objective - Vital Signs/Intake and Output Vital Signs (last 24 hours): Temp Pulse Resp BP Pulse Ox 97.4 F L 91 H 20 105/64 97 12/20/18 09:10 12/20/18 09:10 12/20/18 09:10 12/20/18 09:10 12/20/18 09:10 Intake and Output: 12/20/18 12/20/18 06:59 18:59 Intake Total 1040 Balance 1040 - Medications Medications: Current Medications Alprazolam (Xanax) 0.5 mg PO TID PRN PRN Reason: Anxiety Last Admin: 12/19/18 21:22 Dose: 0.5 mg Dextrose (Dextrose 50% Inj) 0 ml IV STAT PRN; Protocol PRN Reason: Hypoglycemia Protocol Dextrose (Glutose 15) 0 gm PO ONCE PRN; Protocol PRN Reason: Hypoglycemia Protocol Enoxaparin Sodium (Lovenox) 30 mg SC DAILY [facility] Last Admin: 12/20/18 10:37 Dose: 30 mg Glucagon (Glucagen Diagnostic Kit) 0 mg IM STAT PRN; Protocol PRN Reason: Hypoglycemia Protocol Aztreonam 2 gm/ Sodium (Chloride) 100 mls @ 200 mls/hr IVPB Q8H [facility]; Protocol Last Admin: 12/20/18 10:41 Dose: 200 mls/hr Metronidazole (Flagyl) 500 mg in 100 mls @ 100 mls/hr IVPB Q8H [facility]; Protocol Last Admin: 12/20/18 11:38 Dose: 100 mls/hr Sodium Chloride (Sodium Chloride 0.9%) 1,000 mls @ 100 mls/hr IV .Q10H [facility] Last Admin: 12/20/18 11:31 Dose: Not Given Dextrose (Dextrose 5% In Water 1000 Ml) 1,000 mls @ 0 mls/hr IV .Q0M PRN; Protocol PRN Reason: Hypoglycemia Protocol Insulin Aspart (Novolog) 0 unit SC ACHS [facility]; Protocol Last Admin: 12/20/18 11:43 Dose: 8 units Insulin Glargine (Lantus) 15 unit SC HS [facility] Last Admin: 12/19/18 16:36 Dose: 15 units Sitagliptin Phosphate (Januvia) 100 mg PO DAILY [facility] Last Admin: 12/20/18 10:37 Dose: 100 mg - Labs Labs: 12/20/18 09:05 12/20/18 09:05 PT 13.7 SECONDS (9.7-12.2) H 12/18/18 10:46 INR 1.3 12/18/18 10:46 APTT 30 SECONDS (21-34) 12/18/18 10:46
--- NOTE | 2018-12-20 21:53 | CP.PCM.DIS ---
Provider - Provider Date of Admission: 12/18/18 22:31 Attending physician: Jaron Minor MD Time Spent in preparation of Discharge (in minutes): 30 Hospital Course - Lab Results Lab Results: Micro Results 12/18/18 12:18 Blood Blood Culture - Preliminary NO GROWTH AFTER 48 HOURS 12/18/18 12:18 Blood Blood Culture - Preliminary NO GROWTH AFTER 48 HOURS 12/18/18 10:52 Urine,Clean Catch Urine Culture - Final No Growth (<1,000 CFU/ML) Most Recent Lab Values WBC 4.7 K/uL (4.8-10.8) L 12/20/18 09:05 RBC 3.85 Mil/uL (3.80-5.20) 12/20/18 09:05 Hgb 12.8 g/dL (11.0-16.0) 12/20/18 09:05 Hct 38.5 % (34.0-47.0) 12/20/18 09:05 MCV 100.0 fL (81.0-99.0) H 12/20/18 09:05 MCH 33.1 pg (27.0-31.0) H 12/20/18 09:05 MCHC 33.1 g/dL (33.0-37.0) 12/20/18 09:05 RDW 16.6 % (11.5-14.5) H 12/20/18 09:05 Plt Count 120 K/uL (130-400) L 12/20/18 09:05 MPV 10.0 fL (7.2-11.7) 12/20/18 09:05 Neut % (Auto) 67.7 % (50.0-75.0) 12/20/18 09:05 Lymph % (Auto) 19.7 % (20.0-40.0) L 12/20/18 09:05 [place] % (Auto) 9.9 % (0.0-10.0) 12/20/18 09:05 Eos % (Auto) 1.6 % (0.0-4.0) 12/20/18 09:05 Baso % (Auto) 1.1 % (0.0-2.0) 12/20/18 09:05 Neut # (Auto) 3.2 K/uL (1.8-7.0) 12/20/18 09:05 Lymph # (Auto) 0.9 K/uL (1.0-4.3) L 12/20/18 09:05 [place] # (Auto) 0.5 K/uL (0.0-0.8) 12/20/18 09:05 Eos # (Auto) 0.1 K/uL (0.0-0.7) 12/20/18 09:05 Baso # (Auto) 0.0 K/uL (0.0-0.2) 12/20/18 09:05 Neutrophils % (Manual) 65 % (50-75) 12/18/18 09:39 Band Neutrophils % 13 % (0-2) H* 12/18/18 09:39 Lymphocytes % (Manual) 8 % (20-40) L 12/18/18 09:39 Monocytes % (Manual) 13 % (0-10) H 12/18/18 09:39 Basophils % (Manual) 1 % (0-2) 12/18/18 09:39 Differential Comment 12/20/18 09:05 Platelet Estimate Normal (NORMAL) 12/18/18 09:39 Anisocytosis (manual) Slight 12/18/18 09:39 Target Cells Moderate 12/18/18 09:39 Stomatocytes Slight 12/18/18 09:39 PT 13.7 SECONDS (9.7-12.2) H 12/18/18 10:46 INR 1.3 12/18/18 10:46 APTT 30 SECONDS (21-34) 12/18/18 10:46 pO2 51 mm/Hg (30-55) 12/18/18 13:35 VBG pH 7.37 (7.32-7.43) 12/18/18 13:35 VBG pCO2 28 mmHg (40-60) L 12/18/18 13:35 VBG HCO3 18.7 mmol/L 12/18/18 13:35 VBG Total CO2 17.1 mmol/L (22-28) L 12/18/18 13:35 VBG O2 Sat (Calc) 86.2 % (40-65) H 12/18/18 13:35 VBG Base Excess -7.6 mmol/L (0.0-2.0) L 12/18/18 13:35 VBG Potassium 2.0 mmol/L (3.6-5.2) L* 12/18/18 13:35 Sodium 141.0 mmol/l (132-148) 12/18/18 13:35 Chloride 119.0 mmol/L (98-107) H 12/18/18 13:35 Glucose 145 mg/dl (65-105) H 12/18/18 13:35 Lactate 0.9 mmol/L (0.7-2.1) 12/18/18 13:35 Crit Value Called To micah Cordero md 12/18/18 13:35 Crit Value Called By rt Kim 12/18/18 13:35 Crit Value Read Back Y 12/18/18 13:35 Blood Gas Notified Time 1341 12/18/18 13:35 Sodium 132 mmol/L (132-148) 12/20/18 09:05 Potassium 3.7 mmol/L (3.6-5.2) 12/20/18 09:05 Chloride 103 mmol/L (98-107) 12/20/18 09:05 Carbon Dioxide 22 mmol/L (22-30) 12/20/18 09:05 Anion Gap 11 (10-20) 12/20/18 09:05 BUN 11 mg/dL (7-17) 12/20/18 09:05 Creatinine 0.4 mg/dL (0.7-1.2) L 12/20/18 09:05 Est GFR ( Amer) > 60 12/20/18 09:05 Est GFR (Non-Af Amer) > 60 12/20/18 09:05 POC Glucose (mg/dL) 322 mg/dL (65-110) H 12/18/18 21:58 Random Glucose 398 mg/dL (65-105) H 12/20/18 09:05 Hemoglobin A1c 10.2 % (4.2-6.5) H D 12/19/18 10:15 Calcium 8.3 mg/dl (8.6-10.4) L 12/20/18 09:05 Phosphorus 3.5 mg/dL (2.5-4.5) 12/18/18 10:22 Magnesium 1.7 mg/dL (1.6-2.3) 12/20/18 09:05 Total Bilirubin 2.8 mg/dL (0.2-1.3) H 12/20/18 09:05 Direct Bilirubin 1.2 mg/dL (0.0-0.4) H 12/20/18 09:05 AST 174 U/L (14-36) H D 12/20/18 09:05 ALT 88 U/L (9-52) H D 12/20/18 09:05 Alkaline Phosphatase 243 U/L (38-126) H 12/20/18 09:05 Total Protein 6.4 g/dL (6.3-8.3) 12/20/18 09:05 Albumin 3.0 g/dL (3.5-5.0) L D 12/20/18 09:05 Globulin 3.4 gm/dL (2.2-3.9) 12/20/18 09:05 Albumin/Globulin Ratio 0.9 (1.0-2.1) L 12/20/18 09:05 Venous Blood Potassium 2.0 mmol/L (3.6-5.2) L* 12/18/18 13:35 Urine Color Yellow (YELLOW) 12/18/18 10:52 Urine Clarity Clear (Clear) 12/18/18 10:52 Urine pH 8.0 (5.0-8.0) 12/18/18 10:52 Ur Specific [place] 1.007 (1.003-1.030) 12/18/18 10:52 Urine Protein Negative mg/dL (NEGATIVE) 12/18/18 10:52 Urine Glucose (UA) 3+ mg/dL (Normal) H 12/18/18 10:52 Urine Ketones Negative mg/dL (NEGATIVE) 12/18/18 10:52 Urine Blood Negative (NEGATIVE) 12/18/18 10:52 Urine Nitrate Negative (NEGATIVE) 12/18/18 10:52 Urine Bilirubin Negative (NEGATIVE) 12/18/18 10:52 Urine Urobilinogen 2.0 mg/dL (0.2-1.0) H 12/18/18 10:52 Ur Leukocyte Esterase Neg Demetri/uL (Negative) 12/18/18 10:52 Urine WBC (Auto) 4 /hpf (0-5) 12/18/18 10:52 Urine RBC (Auto) 1 /hpf (0-3) 12/18/18 10:52 Ur Squamous Epith Cells < 1 /hpf (0-5) 12/18/18 10:52 Urine Bacteria Rare (<OCC) 12/18/18 10:52 Urine Opiates Screen Negative (NEGATIVE) 12/18/18 10:52 Urine Methadone Screen Negative (NEGATIVE) 12/18/18 10:52 Ur Barbiturates Screen Negative (NEGATIVE) 12/18/18 10:52 Ur Phencyclidine Scrn Negative (NEGATIVE) 12/18/18 10:52 Ur Amphetamines Screen Negative (NEGATIVE) 12/18/18 10:52 U Benzodiazepines Scrn Negative (NEGATIVE) 12/18/18 10:52 U Oth Cocaine Metabols Negative (NEGATIVE) 12/18/18 10:52 U Cannabinoids Screen Negative (NEGATIVE) 12/18/18 10:52 Alcohol, Quantitative < 10 mg/dl (0-10) 12/18/18 10:22 Discharge Plan - Discharge Medications Prescriptions: Blood-Glucose Meter [Accu-Chek Guide Monitor System] 1 each ACHS 30 Days each Blood Sugar Diagnostic [Accu-Chek Guide Test Strip] 1 each [facility] 30 Days strip Lancing Device/Lancets [Accu-Chek Multiclix Lancet Kit] 1 each ACHS 30 Days kit Insulin Glargine,Hum.rec.anlog [Basaglar Kwikpen U-100] 20 unit SQ HS 30 Days insuln.pen SITagliptin [Januvia] 100 mg PO DAILY #30 tab Pen Needle, Diabetic [Pen Needle] 1 each HS 30 Days dis.needle Multimineral/Multivitamin [Therapeutic-M Tab] 1 tab PO DAILY #30 tab - Follow Up Plan Condition: STABLE Disposition: HOME/ ROUTINE Instructions: Sitagliptin, Diabetes Exchange Diet, Pneumonia, Adult (DC), Diabetes Diet , Sepsis, Adult (DC), Alcohol Withdrawal, Alcohol Abuse and Alcoholism (DC), Insulin Glargine Additional Instructions: Please follow up with Dr. Minor office in 1 week Please continue medication as per med. rec. Please do blood sugar before meals and write it down in a paper and bring to Dr. minor office next visit Please continue medication as per med. rec. Referrals: Jaron Minor MD [Staff Provider] -
== END 2018-12-20 16:02 | disposition home or self-care (01) | DRG 638 ==
LOC: C.ER 08:53 → C.9E 12:14 → C.6T 15:50 → OBSVTOIN 22:31
PROVIDERS: ADMIT Internal Medicine; ATTEND Internal Medicine
DX: E11.65 Type 2 diabetes mellitus with hyperglycemia (principal); F10.231 Alcohol dependence with withdrawal delirium; Z79.4 Long term (current) use of insulin; E03.9 Hypothyroidism, unspecified; E86.0 Dehydration; F17.200 Nicotine dependence, unspecified, uncomplicated; I25.10 Atherosclerotic heart disease of native coronary artery without angina pectoris; Z86.711 Personal history of pulmonary embolism; Z87.01 Personal history of pneumonia (recurrent); Z91.11 Patient's noncompliance with dietary regimen; Z95.1 Presence of aortocoronary bypass graft; Z95.5 Presence of coronary angioplasty implant and graft; J42 Unspecified chronic bronchitis; K29.20 Alcoholic gastritis without bleeding; F31.9 Bipolar disorder, unspecified; K70.9 Alcoholic liver disease, unspecified; K21.9 Gastro-esophageal reflux disease without esophagitis

== ENCOUNTER 2018-12-27 04:13 | Observation (INO) | payer MEDICARE, OTHER ==
[2018-12-27] MEDS ORDERED: Sodium Chloride 0.9% 1,000 ML IV ONE ×2 (04:29→05:43)
--- NOTE | 2018-12-27 04:29 | C.PDOC ---
History Of Present Illness The patient presents to the ED for evaluation of dizziness and elevated blood sugar noted prior to arrival. Patient admits to alcohol intake. She denies fever, chills, nausea, vomiting or any urinary symptoms at this time. Time Seen by Provider: 12/27/18 04:28 Chief Complaint (Nursing): High Blood Sugar History Per: Patient History/Exam Limitations: no limitations Onset/Duration Of Symptoms: Hrs Current Symptoms Are (Timing): Still Present Severity: None Pain Scale Rating Of: 0 Current Diabetic Medications: Insulin Associated Infectious Symptoms: denies: Urinary Urgency, Urinary Frequency, Nausea, Vomiting Treatment Prior To Provider Evaluation: None Recent travel outside of the [place]: No Additional History Per: Patient Past Medical History Reviewed: Historical Data, Nursing Documentation, Vital Signs - Medical History PMH: Anemia, Anxiety, Arthritis, Asthma, Bipolar Disorder, Bronchitis, CAD, COPD, Depression, Diabetes, Gastritis, GERD, Hypercholesterolemia, Hypothyroidism, Osteoporosis, Peripheral Edema, Pneumonia, Pulmonary Embolism Denies: Chronic Kidney Disease, Seizures, Sexually Transmitted Disease Surgical History: CABG, Cholecystectomy, Coronary Stent - [facility] Procedures ALCOHOL DETOXIFICATION (03/15/15) DETOXIFICATION SERVICES FOR SUBSTANCE ABUSE TREATMENT (10/16/18) EXCISION OF STOMACH, ENDO, DIAGN (05/29/18) FLUOROSCOPY OF MULT COR ART USING L OSM CONTRAST (03/10/18) GROUP VAN HELPER FOR SUBSTANCE ABUSE TREATMENT, PSYCHOEDUCATION (10/16/18) GROUP PSYCHOTHERAPY (02/03/18) INDIV PSYCHOTHERAPY FOR SUBSTANCE ABUSE TREATMENT, SUPPORT (10/16/18) INDIV PSYCHOTHERAPY FOR SUBSTANCE ABUSE, COGNITIV BEHAVIORAL (02/03/18) INDIVID PSYCHOTHERAP NEC (04/14/13) INDIVIDUAL PSYCHOTHERAPY, COGNITIVE-BEHAVIORAL (02/03/18) INTRODUCTION OF ANTI-INFLAM INTO RESP TRACT, VIA OPENING (01/25/17) INTRODUCTION OF SERUM/TOX/VACCINE INTO MUSCLE, PERC APPROACH (09/02/17) MEASURE OF CARDIAC SAMPL & PRESSURE, L HEART, PERC APPROACH (03/10/18) MEDICATION MANAGEMENT (10/16/18) OTHER GROUP THERAPY (04/14/13) PHYSICAL THERAPY NEC (06/12/14) Family History: States: No Known Family Hx - Social History Hx Tobacco Use: Yes Hx Alcohol Use: Yes Hx Substance Use: No - Immunization History Hx Tetanus Toxoid Vaccination: No Hx Influenza Vaccination: No Hx Pneumococcal Vaccination: No Review Of Systems Constitutional: Positive for: Other (elevated blood sugar ). Negative for: Fever, Chills Cardiovascular: Negative for: Chest Pain, Palpitations Respiratory: Negative for: Cough, Shortness of Breath Gastrointestinal: Negative for: Nausea, Vomiting, Abdominal Pain Genitourinary: Negative for: Dysuria, Frequency, Hematuria Musculoskeletal: Negative for: Back Pain Skin: Negative for: Rash, Lesions, Jaundice, Bruising Neurological: Positive for: Dizziness. Negative for: Weakness, Numbness Psych: Negative for: Anxiety Physical Exam - Physical Exam Appears: Non-toxic, No Acute Distress Skin: Warm, Dry Head: Normacephalic Eye(s): bilateral: Normal Inspection Oral Mucosa: Moist Neck: Supple Chest: Symmetrical, No Deformity, No Tenderness Cardiovascular: Rhythm Regular, No Murmur Respiratory: No Rales, No Rhonchi, No Wheezing Gastrointestinal/Abdominal: Soft, No Tenderness Extremity: Normal ROM, Capillary Refill (less than 2 seconds ) Neurological/Psych: Oriented x3 ED Course And Treatment - Laboratory Results Result Diagrams: 12/27/18 04:52 12/27/18 05:40 ECG: Interpreted By Me, Viewed By Me ECG Rhythm: Sinus Rhythm (94), Nonspecific Changes (lvh) O2 Sat by Pulse Oximetry: 94 Pulse Ox Interpretation: Normal Progress Note: Bloodwork and urinalysis ordered and reviewed. IV Fluids given. Disposition Counseled Patient/Family Regarding: Studies Performed, Diagnosis - Disposition Disposition Time: 04:29 Condition: FAIR Forms: [facility] (Qatari) - Clinical Impression Clinical Impression: Alcohol abuse, Alcohol intoxication, Hyperglycemia - Scribe Statement The provider has reviewed the documentation as recorded by the Scribe (Myrna Can) Provider Attestation: All medical record entries made by the Scribe were at my direction and personally dictated by me. I have reviewed the chart and agree that the record accurately reflects my personal performance of the history, physical exam, medical decision making, and the department course for this patient. I have also personally directed, reviewed, and agree with the discharge instructions and disposition. Physician Patient Turnover Patient Signed Over To: Mary Beth Forbes Handoff Comments: pending sobriety , re-eval and recheck sugar
[2018-12-27 04:34] VITALS: BMI 25.6
[2018-12-27 04:57] LABS: EOS # 0.1 K/uL (0.0-0.7); MONO # 0.5 K/uL (0.0-0.8); WHITE BLOOD COUNT 4.1 K/uL (4.8-10.8)
[2018-12-27] MEDS ORDERED: Sodium Chloride 0.9% 1,000 ML ONE ×2 (04:57→07:50)
[2018-12-27 05:09] LABS: BASO # 0.1 K/uL (0.0-0.2); BASO % 2.5 % (0.0-2.0); EOS % 1.3 % (0.0-4.0); HEMOGLOBIN 12.3 g/dL (11.0-16.0); LYMPH # 1.4 K/uL (1.0-4.3); LYMPH % 33.2 % (20.0-40.0); MEAN CELL VOLUME 100.3 fL (81.0-99.0); MEAN CORPUSCULAR HEMOGLOBIN 33.2 pg (27.0-31.0); MEAN CORPUSCULAR HGB CONC 33.1 g/dL (33.0-37.0); MEAN PLATELET VOLUME 9.6 fL (7.2-11.7); MONO % 11.3 % (0.0-10.0); NEUT # 2.1 K/uL (1.8-7.0); NEUT % 51.7 % (50.0-75.0); NRBC % 0.2 % (0.0-2.0); RBC 3.69 Mil/uL (3.80-5.20)
[2018-12-27 05:29] LABS: VENOUS BLOOD GAS BASE EXCESS -1.4 mmol/L (0.0-2.0); VENOUS BLOOD GAS PCO2 36 mmHg (40-60); VENOUS BLOOD GAS PO2 56 mm/Hg (30-55); VENOUS BLOOD PH 7.41 (7.32-7.43)
[2018-12-27 05:46] LABS: SQUAMOUS EPITHIAL < 1 /hpf (0-5); URINE BILIRUBIN NEGATIVE (NEGATIVE); URINE CLARITY Clear (Clear); URINE COLOR Yellow (YELLOW); URINE GLUCOSE (UA) 3+ mg/dL (Normal); URINE LEUKOCYTE ESTERASE NEG Leu/uL (Negative); URINE PROTEIN NEGATIVE (NEGATIVE)
[2018-12-27 05:49] LABS: URINE BLOOD NEGATIVE (NEGATIVE)
[2018-12-27 06:13] LABS: ALB/GLOB RATIO 0.9 (1.0-2.1); ALBUMIN 3.5 g/dL (3.5-5.0); ALT/SGPT 82 U/L (9-52); AST/SGOT 255 U/L (14-36); BLOOD UREA NITROGEN 5 mg/dL (7-17); CALCIUM 8.3 mg/dl (8.6-10.4); GFR NON-AFRICAN AMERICAN > 60
[2018-12-27 07:35] VITALS: RESP 20
[2018-12-27] MEDS ORDERED: Sodium Chloride 0.9% 500 ML IV ONE (07:44)
[2018-12-27 09:32] LABS: VENOUS BLOOD GAS PCO2 32 mmHg (40-60); VENOUS BLOOD GAS PO2 59 mm/Hg (30-55); VENOUS BLOOD PH 7.45 (7.32-7.43)
[2018-12-27] MEDS: (Novolin R) Insulin Human Regular 100 units/ml vial SC SCH ×3 (12:38→21:36)
[2018-12-27] MEDS: Sodium Chloride 0.9% 1,000 ML IV SCH ×2 (12:39→21:38)
--- NOTE | 2018-12-27 21:38 | CP.PCM.HP ---
Present on Admission - Present on Admission Any Indicators Present on Admission: Yes History of Uncontrolled Diabetes: Yes Past Patient History - Infectious Disease Hx of Infectious Diseases: None - Past Medical History & Family History Past Medical History?: Yes - Past Social History Smoking Status: Current Some Days Smoker - CARDIAC Hx Hypercholesterolemia: Yes Hx Peripheral Edema: Yes - PULMONARY Hx Asthma: Yes Hx Bronchitis: Yes Hx Chronic Obstructive Pulmonary Disease (COPD): Yes Hx Pneumonia: Yes Hx Pulmonary Embolism: Yes - NEUROLOGICAL Hx Seizures: No - HEENT Hx HEENT Problems: No - RENAL Hx Chronic Kidney Disease: No - ENDOCRINE/METABOLIC Hx Hypothyroidism: Yes - HEMATOLOGICAL/ONCOLOGICAL Hx Anemia: Yes - INTEGUMENTARY Hx Dermatological Problems: No - MUSCULOSKELETAL/RHEUMATOLOGICAL Hx Arthritis: Yes Hx Osteoporosis: Yes - GASTROINTESTINAL Hx Gastritis: Yes - GENITOURINARY/GYNECOLOGICAL Hx Sexually Transmitted Disorders: No - PSYCHIATRIC Hx Anxiety: Yes Hx Bipolar Disorder: Yes Hx Depression: Yes Hx Substance Use: No - SURGICAL HISTORY Hx Cholecystectomy: Yes Hx Coronary Artery Bypass Graft: Yes Hx Coronary Stent: Yes - ANESTHESIA Hx Anesthesia: Yes Hx Anesthesia Reactions: No Hx Malignant Hyperthermia: No Meds Allergies/Adverse Reactions: Allergies Allergy/AdvReac Type Severity Reaction Status Date / Time ceftriaxone Allergy Intermediate RASH Verified 12/27/18 04:35 moxifloxacin HCl Allergy Intermediate RASH Verified 12/27/18 04:35 [From Avelox] Results - Vital Signs Recent Vital Signs: Last Vital Signs Temp 97.9 F 12/27/18 16:00 Pulse 74 12/27/18 16:00 Resp 20 12/27/18 16:00 BP 132/68 12/27/18 16:00 Pulse Ox 95 12/27/18 16:00 - Labs Result Diagrams: 12/27/18 04:52 12/27/18 05:40 Labs: Laboratory Results - last 24 hr 12/27/18 12/27/18 12/27/18 04:21 04:52 05:25 WBC 4.1 L RBC 3.69 L Hgb 12.3 Hct 37.1 MCV 100.3 H MCH 33.2 H MCHC 33.1 RDW 16.0 H Plt Count 128 L MPV 9.6 Neut % (Auto) 51.7 Lymph % (Auto) 33.2 [place] % (Auto) 11.3 H Eos % (Auto) 1.3 Baso % (Auto) 2.5 H Neut # (Auto) 2.1 Lymph # (Auto) 1.4 [place] # (Auto) 0.5 Eos # (Auto) 0.1 Baso # (Auto) 0.1 pO2 56 H VBG pH 7.41 VBG pCO2 36 L VBG HCO3 23.6 VBG Total CO2 23.9 VBG O2 Sat (Calc) 91.8 H VBG Base Excess -1.4 L VBG Potassium 3.4 L Sodium 138.0 Chloride 103.0 Glucose 356 H Lactate 3.8 H Potassium Carbon Dioxide Anion Gap BUN Creatinine Est GFR ( Amer) Est GFR (Non-Af Amer) POC Glucose (mg/dL) 415 H* Random Glucose Calcium Total Bilirubin AST ALT Alkaline Phosphatase Total Protein Albumin Globulin Albumin/Globulin Ratio Venous Blood Potassium 3.4 L Urine Color Urine Clarity Urine pH Ur Specific [place] Urine Protein Urine Glucose (UA) Urine Ketones Urine Blood Urine Nitrate Urine Bilirubin Urine Urobilinogen Ur Leukocyte Esterase Urine WBC (Auto) Urine RBC (Auto) Ur Squamous Epith Cells Alcohol, Quantitative B-Hydroxybutyrate 12/27/18 12/27/18 12/27/18 05:40 05:40 06:24 WBC RBC Hgb Hct MCV MCH MCHC RDW Plt Count MPV Neut % (Auto) Lymph % (Auto) [place] % (Auto) Eos % (Auto) Baso % (Auto) Neut # (Auto) Lymph # (Auto) [place] # (Auto) Eos # (Auto) Baso # (Auto) pO2 VBG pH VBG pCO2 VBG HCO3 VBG Total CO2 VBG O2 Sat (Calc) VBG Base Excess VBG Potassium Sodium 134 Chloride 100 Glucose Lactate Potassium 4.0 Carbon Dioxide 24 Anion Gap 14 BUN 5 L Creatinine 0.3 L Est GFR ( Amer) > 60 Est GFR (Non-Af Amer) > 60 POC Glucose (mg/dL) 313 H Random Glucose 354 H Calcium 8.3 L Total Bilirubin 2.1 H AST 255 H D ALT 82 H Alkaline Phosphatase 320 H D Total Protein 7.3 Albumin 3.5 Globulin 3.7 Albumin/Globulin Ratio 0.9 L Venous Blood Potassium Urine Color Yellow Urine Clarity Clear Urine pH 6.0 Ur Specific [place] 1.021 Urine Protein Negative Urine Glucose (UA) 3+ H Urine Ketones Negative Urine Blood Negative Urine Nitrate Negative Urine Bilirubin Negative Urine Urobilinogen 2.0 H Ur Leukocyte Esterase Neg Urine WBC (Auto) < 1 Urine RBC (Auto) 1 Ur Squamous Epith Cells < 1 Alcohol, Quantitative 111 H B-Hydroxybutyrate 0.34 H 12/27/18 12/27/18 12/27/18 09:02 09:28 11:31 WBC RBC Hgb Hct MCV MCH MCHC RDW Plt Count MPV Neut % (Auto) Lymph % (Auto) [place] % (Auto) Eos % (Auto) Baso % (Auto) Neut # (Auto) Lymph # (Auto) [place] # (Auto) Eos # (Auto) Baso # (Auto) pO2 59 H VBG pH 7.45 H VBG pCO2 32 L VBG HCO3 24.0 VBG Total CO2 23.2 VBG O2 Sat (Calc) 93.4 H VBG Base Excess -1.0 L VBG Potassium 3.7 Sodium 137.0 Chloride 103.0 Glucose 273 H Lactate 3.2 H Potassium Carbon Dioxide Anion Gap BUN Creatinine Est GFR ( Amer) Est GFR (Non-Af Amer) POC Glucose (mg/dL) 269 H 295 H Random Glucose Calcium Total Bilirubin AST ALT Alkaline Phosphatase Total Protein Albumin Globulin Albumin/Globulin Ratio Venous Blood Potassium 3.7 Urine Color Urine Clarity Urine pH Ur Specific [place] Urine Protein Urine Glucose (UA) Urine Ketones Urine Blood Urine Nitrate Urine Bilirubin Urine Urobilinogen Ur Leukocyte Esterase Urine WBC (Auto) Urine RBC (Auto) Ur Squamous Epith Cells Alcohol, Quantitative B-Hydroxybutyrate 12/27/18 12/27/18 16:32 21:03 WBC RBC Hgb Hct MCV MCH MCHC RDW Plt Count MPV Neut % (Auto) Lymph % (Auto) [place] % (Auto) Eos % (Auto) Baso % (Auto) Neut # (Auto) Lymph # (Auto) [place] # (Auto) Eos # (Auto) Baso # (Auto) pO2 VBG pH VBG pCO2 VBG HCO3 VBG Total CO2 VBG O2 Sat (Calc) VBG Base Excess VBG Potassium Sodium Chloride Glucose Lactate Potassium Carbon Dioxide Anion Gap BUN Creatinine Est GFR ( Amer) Est GFR (Non-Af Amer) POC Glucose (mg/dL) 313 H 120 H Random Glucose Calcium Total Bilirubin AST ALT Alkaline Phosphatase Total Protein Albumin Globulin Albumin/Globulin Ratio Venous Blood Potassium Urine Color Urine Clarity Urine pH Ur Specific [place] Urine Protein Urine Glucose (UA) Urine Ketones Urine Blood Urine Nitrate Urine Bilirubin Urine Urobilinogen Ur Leukocyte Esterase Urine WBC (Auto) Urine RBC (Auto) Ur Squamous Epith Cells Alcohol, Quantitative B-Hydroxybutyrate
[2018-12-27] MEDS ORDERED: (Lantus) Insulin Glargine, Recombinant SC SCH (22:00)
[2018-12-28] MEDS ORDERED: Pantoprazole 40 mg EC Tab PO STA (05:49)
--- NOTE | 2018-12-28 06:17 | HP ---
CHIEF COMPLAINT: Weakness, dizziness. HISTORY OF PRESENT ILLNESS: This is a 68-year-old female, well known to me with history of type 2 diabetes, on insulin, oral antidiabetic medication, hypertension, hyperlipidemia. She is noncompliant with diet, medication, and followup and the patient is alcoholic. She drinks every day. She had multiple hospitalizations where she was found to have alcohol abuse. The patient has had more than 20 visits in different hospitals in recent few months. She is noncompliant. The patient came in because she is having generalized weakness, tiredness, polyuria, polydipsia, polyphagia, tremulousness, dizziness, and she is unsteady on the gait, she is drunk. She is more alert now but when she arrived in the ER, she had bizarre behavior. She denies any alcoholic liver disease. She has nausea, no vomiting. She denies any diarrhea. There is no fever, no chills. She denies any dysuria, hematuria, pyuria. She denies any sneezing, itchy eyes, itchy nose. She denies any history of trauma, fall, or loss of consciousness. She denies any history of seizure-like activity. She has tingling, numbness, and paresthesias of the feet. ALLERGIES: CEFTRIAXONE, AVELOX. HOME MEDICATIONS: Aldactone, Glucophage, Januvia, multivitamin, Basaglar, Protonix, Macrobid, Singulair, Cozaar, aspirin. SOCIAL HISTORY: She smokes, she drinks. FAMILY HISTORY: Negative for coronary artery disease. PHYSICAL EXAMINATION: GENERAL: An elderly female, is tremulous some abdominal pain. VITAL SIGNS: Blood pressure 125/73, pulse 99, respiratory rate 20, temperature 97.9. SKIN: Senile turgor. No bruises. No purpura. No petechiae. No ecchymosis. HEENT: Atraumatic and normocephalic. Negative pallor. Negative jaundice. Extraocular movements are intact. NECK: Supple. No JVD. No lymph nodes. No thyromegaly. No carotid bruits. CHEST WALL: Bilateral symmetrical expansion. LUNGS: Clear. No rales. No rhonchi. CARDIOVASCULAR SYSTEM: PMI not localized. S1, S2 plus S4 positive. ABDOMEN: Soft, nontender. Bowel sounds are positive. Enlarged liver about 4 fingerbreadths below right margin. RECTAL AND PELVIC: Negative. EXTREMITIES: No clubbing, cyanosis, or edema. CENTRAL NERVOUS SYSTEM: Awake, alert and oriented x3. Cranial nerves II through XII are normal. Power 5/5 x4. Plantars are downgoing. ASSESSMENT: 1. Alcohol intoxication. 2. Poorly controlled diabetes due to dietary noncompliance use of appropriate medication with alcohol. 3. Alcoholic liver disease. 4. Hypertension. PLAN: Admit. Accu-Chek, sliding scale, IV fluids, thiamine, multivitamin. Monitor the patient. Jaron Minor MD
[2018-12-28 07:26] LABS: BASO # 0.1 K/uL (0.0-0.2); BASO % 1.2 % (0.0-2.0); EOS % 0.9 % (0.0-4.0); HEMOGLOBIN 12.2 g/dL (11.0-16.0); LYMPH # 1.2 K/uL (1.0-4.3); LYMPH % 23.9 % (20.0-40.0); MEAN CELL VOLUME 100.5 fL (81.0-99.0); MEAN CORPUSCULAR HEMOGLOBIN 33.8 pg (27.0-31.0); MEAN CORPUSCULAR HGB CONC 33.6 g/dL (33.0-37.0); MEAN PLATELET VOLUME 9.7 fL (7.2-11.7); MONO # 0.5 K/uL (0.0-0.8); MONO % 10.2 % (0.0-10.0); NEUT # 3.1 K/uL (1.8-7.0); NEUT % 63.8 % (50.0-75.0); NRBC % 0.2 % (0.0-2.0); RBC 3.62 Mil/uL (3.80-5.20); RED CELL DISTRIBUTION WIDTH 15.7 % (11.5-14.5); WHITE BLOOD COUNT 4.9 K/uL (4.8-10.8)
[2018-12-28 07:48] LABS: ALB/GLOB RATIO 0.9 (1.0-2.1); ALBUMIN 3.3 g/dL (3.5-5.0); ALT/SGPT 63 U/L (9-52); AST/SGOT 166 U/L (14-36); BLOOD UREA NITROGEN 7 mg/dL (7-17); CALCIUM 8.2 mg/dl (8.6-10.4); GFR NON-AFRICAN AMERICAN > 60
[2018-12-28] MEDS: (Novolin R) Insulin Human Regular 100 units/ml vial SC SCH ×4 (08:00→21:42)
[2018-12-28] MEDS: Sodium Chloride 0.9% 1,000 ML IV SCH (08:01)
[2018-12-28 08:05] LABS: B-TYPE NATRIURETIC PEPTIDE 1220 pg/mL (0-900); BLOOD UREA NITROGEN 8 mg/dL (7-17); CALCIUM 8.5 mg/dl (8.6-10.4); GFR NON-AFRICAN AMERICAN > 60
--- NOTE | 2018-12-28 09:39 | PCM.PSYCH ---
Initial Psychiatric Evaluation - Initial Psychiatric Evaluation Type of Admission: Voluntary Legal Status: Capacity Chief Complaint (in patient's own words): I came here to get help History of Present Illness and Precipitating Events: Patient is a 68 year old female with chronic, uncontrolled diabetes, alcohol abuse, and dizziness. Patient presents to ED for dizziness, blood sugar was in the 400s. Blood alcohol was positive. Today psychiatry was consulted for evaluation of depression and substance abuse. She was initially bought to the ED for uncontrolled glucose, blood sugar in the 400s. Patient had a past hospitalization for psychological conditions at [facility]. She currently reports feeling depressed and hopeless. She currently does not follow up with a psychiatrist outpatient and has discontinued her medications 3-4 months ago. She does not report any suicidal ideations or past suicide attempts. She currently uses alcohol 1-2 beers/day. denies tobacco, and recreational drug use. She currently lives alone, and is unemployed. She denies any auditory hallucinations or any paranoia. Current Medications: Active Medications Generic Name Dose Route Start Last Admin Trade Name Westleyq PRN Reason Stop Dose Admin Enalapril Maleate 2.5 mg 12/27/18 12:45 12/28/18 09:22 Vasotec PO 2.5 mg DAILY JESSE Administration Folic Acid 1 mg 12/27/18 12:00 12/28/18 09:22 Folic Acid PO 1 mg DAILY JESSE Administration Sodium Chloride 1,000 mls @ 100 mls/hr 12/27/18 11:45 12/28/18 08:01 Sodium Chloride 0.9% IV Not Given .Q10H JESSE Insulin Glargine 20 unit 12/27/18 22:00 12/27/18 21:37 Lantus SC 20 units HS JESSE Administration Insulin Human Regular 0 unit 12/27/18 11:39 12/28/18 08:00 Novolin R SC 4 units ACHS JESSE Administration Protocol Lorazepam 1 mg 12/27/18 12:38 12/28/18 07:55 Ativan IVP 1 mg Q6H PRN Administration Anxiety Nicotine 1 patch 12/27/18 12:00 12/28/18 09:23 Nicoderm Cq TD 1 patch DAILY JESSE Administration Ondansetron HCl 4 mg 12/27/18 12:37 Zofran Inj IVP Q8H PRN Nausea/Vomiting Pantoprazole Sodium 40 mg 12/27/18 12:45 12/28/18 09:23 Protonix Inj IVP 40 mg DAILY JESSE Administration Thiamine HCl 100 mg 12/27/18 12:00 12/28/18 09:22 Vitamin B1 Tab PO 100 mg DAILY JESSE Administration Past Psychiatric History - Past Psychiatric History Previous Treatment History: None Pertinent Medical Hx (Current Medical&Sleep Prob, Allergies): Allergies Allergy/AdvReac Type Severity Reaction Status Date / Time ceftriaxone Allergy Intermediate RASH Verified 12/27/18 04:35 moxifloxacin HCl Allergy Intermediate RASH Verified 12/27/18 04:35 [From Avelox] Insulin Glargine,Hum.rec.anlog [Basaglar Kwikpen U-100] 20 unit SQ HS 30 Days insuln.pen 12/20/18 Multimineral/Multivitamin [Therapeutic-M Tab] 1 tab PO DAILY #30 tab 12/20/18 SITagliptin [Januvia] 100 mg PO DAILY #30 tab 12/20/18 Aspirin [Ecotrin] 81 mg PO 12/27/18 Enalapril Maleate [Vasotec] 2.5 mg PO 12/27/18 Losartan [Cozaar] 25 mg PO 12/27/18 MetFORMIN [glucOPHAGE] 1,000 mg PO BID 12/27/18 Montelukast [Singulair] 10 mg PO 12/27/18 Nitrofurantoin Macrocrystals [Macrobid] 100 mg PO 12/27/18 Pantoprazole [Protonix] 40 mg PO 12/27/18 Spironolactone [Aldactone] 25 mg PO BID 12/27/18 Review of Systems - Review of Systems All systems: reviewed and no additional remarkable complaints except - Psychiatric Psychiatric: Anxiety, Irritability. absent: Suicidal Ideation Mental Status Examination - Personal Presentation Personal Presentation: Looks stated age - Affect Affect: Constricted - Motor Activity Motor Activity: Calm - Reliability in Providing Information Reliability in Providing Information: Good - Speech Speech: Organized - Mood Mood: Anxious - Formal Thought Process Formal Thought Process: No Impairment - Obsessions/Compulsions Obsessions: No Compulsions: No - Cognitive Functions Orientation: Person, Place, Situation, Time Sensorium: Alert Attention/Concentration: Attentive Abstract Thinking: [place] Estimate of Intelligence: Below average Judgement: Imparied, as evidence by: Poor judgement, Intact, as evidence by: Insight regarding need for hospitalization - Risk Risk: Diminished functioning - Limitations Limitations: Living alone DSM 5 DX - DSM 5 DSM 5 Diagnosis: Depressive disorder - Recommended/Plan of Treatment Treatment Recommendations and Plan of Treatment: Patient psychiatrically stable and cleared for discharge
[2018-12-28] MEDS ORDERED: (Lantus) Insulin Glargine, Recombinant SC SCH (12:11)
--- NOTE | 2018-12-28 22:12 | CP.PCM.PN ---
Subjective - Date & Time of Evaluation Date of Evaluation: 12/28/18 Time of Evaluation: 07:20 - Subjective Subjective: dictated Objective - Vital Signs/Intake and Output Vital Signs (last 24 hours): Temp Pulse Resp BP Pulse Ox 97.7 F 89 20 127/81 98 12/28/18 16:00 12/28/18 16:00 12/28/18 16:00 12/28/18 16:00 12/28/18 16:02 - Medications Medications: Current Medications Enalapril Maleate (Vasotec) 2.5 mg PO DAILY [facility] Last Admin: 12/28/18 09:22 Dose: 2.5 mg Folic Acid (Folic Acid) 1 mg PO DAILY [facility] Last Admin: 12/28/18 09:22 Dose: 1 mg Insulin Glargine (Lantus) 26 unit SC HS [facility] Last Admin: 12/28/18 21:40 Dose: 26 units Insulin Human Regular (Novolin R) 0 unit SC [facility]; Protocol Last Admin: 12/28/18 21:42 Dose: 2 units Lorazepam (Ativan) 1 mg PO TID PRN PRN Reason: Agitation Last Admin: 12/28/18 21:46 Dose: 1 mg Nicotine (Nicoderm Cq) 1 patch TD DAILY [facility] Last Admin: 12/28/18 09:23 Dose: 1 patch Ondansetron HCl (Zofran Inj) 4 mg IVP Q8H PRN PRN Reason: Nausea/Vomiting Pantoprazole Sodium (Protonix Inj) 40 mg IVP DAILY [facility] Last Admin: 12/28/18 09:23 Dose: 40 mg Thiamine HCl (Vitamin B1 Tab) 100 mg PO DAILY [facility] Last Admin: 12/28/18 09:22 Dose: 100 mg - Labs Labs: 12/28/18 07:03 12/28/18 07:03
--- NOTE | 2018-12-29 03:41 | PN ---
DATE: 12/28/2018 SUBJECTIVE: Pamela Hughes continues to have headache, dizziness, and abdominal pain. She had a CT abdomen done in the past which was negative. She does have alcoholic liver disease with elevated liver function. There is no fever. No chills. PHYSICAL EXAMINATION: VITAL SIGNS: Blood pressure 127/81, pulse 89, respiratory rate 20, temperature 97.7. LUNGS: Clear. CARDIOVASCULAR SYSTEM: S1 and S2, regular. ABDOMEN: Soft. Nontender. Bowel sounds are positive. ASSESSMENT: 1. Alcoholic liver disease, symptomatic. 2. Alcohol intoxication/withdrawal. 3. Type 2 diabetes, poorly controlled. 4. Dehydration. PLAN: Continue to monitor the patient. The patient is on observation. Most likely, she will be discharged. We will adjust her insulin dosages. She will be monitored closely. Jaron Minor MD
[2018-12-29 07:42] LABS: ALB/GLOB RATIO 0.9 (1.0-2.1); ALBUMIN 3.9 g/dL (3.5-5.0); ALT/SGPT 58 U/L (9-52); AMYLASE 66 U/L (30-110); AST/SGOT 157 U/L (14-36); BLOOD UREA NITROGEN 11 mg/dL (7-17); CALCIUM 9.4 mg/dl (8.6-10.4); GFR NON-AFRICAN AMERICAN > 60; LIPASE 213 U/L (23-300)
[2018-12-29] MEDS: (Novolin R) Insulin Human Regular 100 units/ml vial SC SCH (07:51)
[2018-12-29 08:05] VITALS: BP 123/79; PULSE 100; TEMP 98.1; O2SAT 95
[2018-12-29] MEDS ORDERED: Belladonna-Phenobarbital PO SCH (10:00)
--- NOTE | 2018-12-30 19:49 | CARD ---
APPROVED REPORT Date of service: 12/27/2018 EKG Measurement Heart [id number] <Conclusion> Normal sinus rhythm Possible Left atrial enlargement Left ventricular hypertrophy with QRS widening and repolarization abnormality Abnormal ECG
--- NOTE | 2018-12-30 20:00 | PN ---
DATE: 12/29/2018 LOCATION: 357, bed B. SUBJECTIVE: This 68-year-old female seen initially for GI consultation on 12/28/2018, reexamined again today with persistent complaints of abdominal pain and anxiety syndrome with nausea, dyspepsia, but no persistent bleeding. No chest pain. No palpitation. No vomiting. No significant change or significant increase in shortness of breath. The entire chart is reviewed including, but not limited to the most recent lab and radiology study results, and today's blood glucose level is 384. The patient reported to have abnormal liver function tests with electrolyte imbalance with total bilirubin of 3.6 as per yesterday. Serum lipase and amylase level as well as cancer marker is still pending. PHYSICAL EXAMINATION: GENERAL: A 68-year-old female, anxious, somewhat restless. VITAL SIGNS: Afebrile with pulse of 92, respiratory rate 20-22, blood pressure 120/72. HEENT: Pale dry oral mucous membrane. Bilateral icteric sclerae. LUNGS: Few scattered crepitation. Decreased air entry at bases. HEART: Positive S1 and S2. ABDOMEN: Soft with mild generalized tenderness. Mild distention with small amount of ascites. No mass or organomegaly. No rebound tenderness or guarding. EXTREMITIES: With bilateral upper extremities mild tremor. No clubbing, cyanosis, or edema. No reported new neurological deficit, sensory or motor. IMPRESSION: 1. Alcoholism alcohol withdrawal syndrome. 2. Poorly controlled diabetes mellitus. 3. Abnormal liver function test with jaundice. The possibility of obstructive jaundice versus injury induced by chemical hepatitis, alcohol induced, should be kept in mind. 4. Electrolyte imbalance secondary to above. 5. Persistent abdominal pain, possibility of acute pancreatitis, alcohol induced with . 5. Known history of, but not limited to depression, bronchial asthma, bipolar disorder, hypertension, coronary artery disease, chronic obstructive pulmonary disease as well as peptic ulcer disease, hyperthyroidism with hyperlipidemia. 6. Reported history of pulmonary embolism 1 year before. 7. As per the report last endoscopy done on 05/29/2018. SUGGESTION: 1. Agree with your plan. 2. Abdominal ultrasound. Serum lipase amylase level. Hepatitis Psychiatry evaluation. The patient for potential upper endoscopy if her symptoms persist and after psychiatry evaluation. Otherwise, close observation to follow. Dian Dunaway MD [facility] # [id number]
--- NOTE | 2018-12-31 00:45 | CON ---
DATE: 12/28/[address] Dian Dunaway to Dr. Jaron Minor. I was called for a GI consultation by the admitting medical team. The patient is seen and fully examined on 12/28/2018 as requested by the admitting medical staff. The entire chart is reviewed including but not limited to the most recent lab and radiology study results, current and previous medication list, current and the previous medical events. Case discussed with admitting medical staff at length. HISTORY OF PRESENT ILLNESS: This is a 68-year-old female who was admitted to the hospital with multiple complaints including but not limited to crampy abdominal pain, diarrhea, dizziness, generalized weakness, and malaise. The patient has a known history of alcohol abuse. The patient had several admissions and visit to the ER recently with recurrent complaint of poor oral intake and tremors secondary to alcoholism. No reported actual chest pain or palpitations, chills or fever, or evidence of active GI bleeding. No reported significant shortness of breath, chills or fever. PAST MEDICAL HISTORY: Including but not limited to, 1. Bronchial asthma. 2. Severe anxiety syndrome. 3. Depression with severe anxiety syndrome and bipolar disorder. 4. Hypertension, coronary artery disease, COPD, diabetes mellitus, diabetic gastroparesis with hyperlipidemia and hypothyroidism. 5. Known history of pulmonary embolus, pneumonia and peripheral edema syndrome. ALLERGIES TO MEDICATION: UNCLEAR. SOCIAL HISTORY: Positive for alcohol intake and cigarette smoking. SURGICAL HISTORY: Status post cholecystectomy, coronary artery disease with coronary stent insertion, status post CABG. CURRENT MEDICATIONS: Post-admission medication list reviewed. FAMILY HISTORY: Unknown. LABORATORY DATA: Initial blood workup showed thrombocytopenia of 128, blood glucose level 354, low BUN 5, low creatinine 1.3 with low albumin and low total protein. PHYSICAL EXAMINATION: GENERAL: A 68-year-old female, appears to be somewhat restless with mild bilateral upper extremity tremors. VITAL SIGNS: Stable vital signs at the time she was seen by me. HEENT: Dry oral mucous membrane. Nonicteric sclerae. LUNGS: Few scattered crepitation. Decreased air entry at bases. HEART: Positive S1 and S2. ABDOMEN: Soft with mild generalized tenderness and mild distention. No mass or organomegaly. No rebound tenderness or guarding. EXTREMITIES: Without significant clubbing, cyanosis, but lower extremity edema. NEUROLOGICAL: No reported new neurological deficits, sensory or motor. The patient still has mild upper extremity tremors. No reported new focal deficits. IMPRESSION: 1. Re-exacerbation of peptic ulcer disease. 2. Diarrhea, infectious versus mechanical to rule out diabetic diarrhea. 3. To rule out diverticulosis with possible early stage of diverticulitis versus an early stage of inflammatory bowel disease. 4. Rule out gastric versus duodenal ulcer, to rule out hyperlipidemia-induced acute pancreatitis with episodes of nausea and vomiting. 5. Multiple past medical history as mentioned above. 6. Alcoholism by history. Was in early stage of delirium tremens. SUGGESTIONS: 1. Agree with your plan. 2. Complete stool workup. 3. Flagyl IV. 4. Rehydration. 5. Psychiatric evaluation. 6. tab one tablet p.o. b.i.d. 7. Cancer markers. 8. Endoscopic evaluation of the upper and the lower GI tract when the patient is more stable clinically. 9. Further recommendations to follow. Thank you for letting me participate in your patient's case management. Dian Dunaway MD
--- NOTE | 2018-12-31 01:41 | CP.PCM.DIS ---
Provider - Provider Date of Admission: 12/27/18 09:06 Attending physician: Jaron Minor MD Consults: 12/27/18 12:35 Physician Consult Routine Comment: Consulting Provider: Jacques Gambino Consulting Physician: Jacques Gambino Reason for Consult: alcohol withdrawal 12/28/18 12:10 Gastroenterology Consult Routine Comment: Consulting Provider: Dian Brooks Consulting Physician: Dian Brooks Reason for Consult: liver disease Time Spent in preparation of Discharge (in minutes): 30 Hospital Course - Lab Results Lab Results: Most Recent Lab Values WBC 4.9 K/uL (4.8-10.8) 12/28/18 07:03 RBC 3.62 Mil/uL (3.80-5.20) L 12/28/18 07:03 Hgb 12.2 g/dL (11.0-16.0) 12/28/18 07:03 Hct 36.4 % (34.0-47.0) 12/28/18 07:03 MCV 100.5 fL (81.0-99.0) H 12/28/18 07:03 MCH 33.8 pg (27.0-31.0) H 12/28/18 07:03 MCHC 33.6 g/dL (33.0-37.0) 12/28/18 07:03 RDW 15.7 % (11.5-14.5) H 12/28/18 07:03 Plt Count 120 K/uL (130-400) L 12/28/18 07:03 MPV 9.7 fL (7.2-11.7) 12/28/18 07:03 Neut % (Auto) 63.8 % (50.0-75.0) 12/28/18 07:03 Lymph % (Auto) 23.9 % (20.0-40.0) 12/28/18 07:03 [place] % (Auto) 10.2 % (0.0-10.0) H 12/28/18 07:03 Eos % (Auto) 0.9 % (0.0-4.0) 12/28/18 07:03 Baso % (Auto) 1.2 % (0.0-2.0) 12/28/18 07:03 Neut # (Auto) 3.1 K/uL (1.8-7.0) 12/28/18 07:03 Lymph # (Auto) 1.2 K/uL (1.0-4.3) 12/28/18 07:03 [place] # (Auto) 0.5 K/uL (0.0-0.8) 12/28/18 07:03 Eos # (Auto) 0.0 K/uL (0.0-0.7) 12/28/18 07:03 Baso # (Auto) 0.1 K/uL (0.0-0.2) 12/28/18 07:03 Differential Comment 12/28/18 07:03 pO2 59 mm/Hg (30-55) H 12/27/18 09:28 VBG pH 7.45 (7.32-7.43) H 12/27/18 09:28 VBG pCO2 32 mmHg (40-60) L 12/27/18 09:28 VBG HCO3 24.0 mmol/L 12/27/18 09:28 VBG Total CO2 23.2 mmol/L (22-28) 12/27/18 09:28 VBG O2 Sat (Calc) 93.4 % (40-65) H 12/27/18 09:28 VBG Base Excess -1.0 mmol/L (0.0-2.0) L 12/27/18 09:28 VBG Potassium 3.7 mmol/L (3.6-5.2) 12/27/18 09:28 Sodium 137.0 mmol/l (132-148) 12/27/18 09:28 Chloride 103.0 mmol/L (98-107) 12/27/18 09:28 Glucose 273 mg/dl (65-105) H 12/27/18 09:28 Lactate 3.2 mmol/L (0.7-2.1) H 12/27/18 09:28 Sodium 134 mmol/L (132-148) 12/29/18 07:04 Potassium 3.9 mmol/L (3.6-5.2) 12/29/18 07:04 Chloride 101 mmol/L (98-107) 12/29/18 07:04 Carbon Dioxide 24 mmol/L (22-30) 12/29/18 07:04 Anion Gap 13 (10-20) 12/29/18 07:04 BUN 11 mg/dL (7-17) 12/29/18 07:04 Creatinine 0.4 mg/dL (0.7-1.2) L 12/29/18 07:04 Est GFR ( Amer) > 60 12/29/18 07:04 Est GFR (Non-Af Amer) > 60 12/29/18 07:04 POC Glucose (mg/dL) 380 mg/dL (65-110) H 12/29/18 07:07 Random Glucose 315 mg/dL (65-105) H 12/29/18 07:04 Calcium 9.4 mg/dl (8.6-10.4) 12/29/18 07:04 Phosphorus 2.4 mg/dL (2.5-4.5) L 12/28/18 07:03 Magnesium 1.6 mg/dL (1.6-2.3) 12/28/18 07:03 Total Bilirubin 2.8 mg/dL (0.2-1.3) H 12/29/18 07:04 AST 157 U/L (14-36) H 12/29/18 07:04 ALT 58 U/L (9-52) H 12/29/18 07:04 Alkaline Phosphatase 319 U/L (38-126) H 12/29/18 07:04 Troponin I 0.0250 ng/mL (0.00-0.120) 12/28/18 07:03 NT-Pro-B Natriuret Pep 1220 pg/mL (0-900) H 12/28/18 07:03 Total Protein 8.2 g/dL (6.3-8.3) 12/29/18 07:04 Albumin 3.9 g/dL (3.5-5.0) 12/29/18 07:04 Globulin 4.3 gm/dL (2.2-3.9) H 12/29/18 07:04 Albumin/Globulin Ratio 0.9 (1.0-2.1) L 12/29/18 07:04 Amylase 66 U/L (30-110) 12/29/18 07:04 Lipase 213 U/L (23-300) 12/29/18 07:04 Carcinoembryonic Ag 5.1 ng/mL (0-3.0) H 12/29/18 07:04 Venous Blood Potassium 3.7 mmol/L (3.6-5.2) 12/27/18 09:28 Urine Color Yellow (YELLOW) 12/27/18 05:40 Urine Clarity Clear (Clear) 12/27/18 05:40 Urine pH 6.0 (5.0-8.0) 12/27/18 05:40 Ur Specific Sarah Ann 1.021 (1.003-1.030) 12/27/18 05:40 Urine Protein Negative mg/dL (NEGATIVE) 12/27/18 05:40 Urine Glucose (UA) 3+ mg/dL (Normal) H 12/27/18 05:40 Urine Ketones Negative mg/dL (NEGATIVE) 12/27/18 05:40 Urine Blood Negative (NEGATIVE) 12/27/18 05:40 Urine Nitrate Negative (NEGATIVE) 12/27/18 05:40 Urine Bilirubin Negative (NEGATIVE) 12/27/18 05:40 Urine Urobilinogen 2.0 mg/dL (0.2-1.0) H 12/27/18 05:40 Ur Leukocyte Esterase Neg Demetri/uL (Negative) 12/27/18 05:40 Urine WBC (Auto) < 1 /hpf (0-5) 12/27/18 05:40 Urine RBC (Auto) 1 /hpf (0-3) 12/27/18 05:40 Ur Squamous Epith Cells < 1 /hpf (0-5) 12/27/18 05:40 Alcohol, Quantitative 111 mg/dl (0-10) H 12/27/18 05:40 B-Hydroxybutyrate 0.34 mM (0.02-0.27) H 12/27/18 05:40 Discharge Plan - Follow Up Plan Condition: FAIR Disposition: AGAINST MEDICAL ADVICE
--- NOTE | 2018-12-31 04:52 | DS ---
DISCHARGE DIAGNOSES: 1. Alcoholic liver disease. 2. Alcoholism. 3. Uncontrolled diabetes due to noncompliance. 4. Anxiety and depression. HISTORY OF PRESENT ILLNESS: This is a 68-year-old female with history of multiple medical problems, diabetes, hypertension, hyperlipidemia. She has alcoholic liver disease with elevated enzymes, abdominal pain, generalized weakness, anxiety, stress, depression, fatigue. She is on multiple medications and the patient came to the hospital with elevated alcohol level above the legal limit and with that she was having high sugar frequency in urination, polyuria, polydipsia, polyphagia, generalized weakness, dizziness, anorexia, malaise, fatigue. The patient was evaluated. She was given insulin and then referred to medicine for admission because of elevated enzymes and abdominal pain. The patient needs to quit alcohol and let her liver recover. The patient has a drug seeking behavior and while treatment she signed out against medical advice. Condition was guarded upon signing out. Jaron Minor MD
== END 2018-12-29 08:30 | disposition left against medical advice (07) ==
LOC: C.ER 04:13 → C.3T 09:06
PROVIDERS: ADMIT Internal Medicine; ATTEND Internal Medicine
DX: F10.231 Alcohol dependence with withdrawal delirium (principal); F17.210 Nicotine dependence, cigarettes, uncomplicated; K70.9 Alcoholic liver disease, unspecified; F31.9 Bipolar disorder, unspecified; F41.9 Anxiety disorder, unspecified; I10 Essential (primary) hypertension; I25.10 Atherosclerotic heart disease of native coronary artery without angina pectoris; J44.9 Chronic obstructive pulmonary disease, unspecified; K21.9 Gastro-esophageal reflux disease without esophagitis; K27.9 Peptic ulcer, site unspecified, unspecified as acute or chronic, without hemorrhage or perforation; E11.43 Type 2 diabetes mellitus with diabetic autonomic (poly)neuropathy; K31.84 Gastroparesis; D64.9 Anemia, unspecified; M81.0 Age-related osteoporosis without current pathological fracture; Z76.5 Malingerer [conscious simulation]; Z79.4 Long term (current) use of insulin; Z86.711 Personal history of pulmonary embolism; Z87.01 Personal history of pneumonia (recurrent); Z91.11 Patient's noncompliance with dietary regimen; Z95.1 Presence of aortocoronary bypass graft; Z95.5 Presence of coronary angioplasty implant and graft; E11.65 Type 2 diabetes mellitus with hyperglycemia; E03.9 Hypothyroidism, unspecified; E78.00 Pure hypercholesterolemia, unspecified; E78.5 Hyperlipidemia, unspecified; E86.0 Dehydration; Y90.5 Blood alcohol level of 100-119 mg/100 ml
CPT/HCPCS: 36415; 80048; 80053; 81001; 82009; 82150; 82378; 82803; 82948; 83690; 83735; 83880; 84100; 84484; 85025; 93005; 96361; 96374; 96375; 96376; 97116; 97162; 99285; C9113; G0378; G0480; G8978; G8979; J2060; J7030; J7040

== ENCOUNTER 2018-12-29 22:19 | Emergency (ER) | payer MEDICARE, OTHER ==
[2018-12-29 22:19] VITALS: BMI 25.0
[2018-12-29] MEDS ORDERED: Sodium Chloride 0.9% 1,000 ML IV ONE (22:43)
--- NOTE | 2018-12-29 22:59 | C.PDOC ---
History Of Present Illness 68-year-old female presents to the emergency department stating that she was drinking alcohol at home. Patient has a history of diabetes. Patient denies nausea vomiting chest pain shortness of breath. Of note patient was released fr om the hospital yesterday. Chief Complaint (Nursing): Substance Abuse History Per: Patient History/Exam Limitations: no limitations Onset/Duration Of Symptoms: Hrs Current Symptoms Are (Timing): Still Present Suicide/Self Injury Attempted (Context): None Modifying Factor(s): Alcohol Past Medical History Vital Signs: Last Vital Signs Temp 97.9 F 12/29/18 22:26 Pulse 98 H 12/29/18 22:26 Resp 18 12/29/18 22:26 BP 106/65 12/29/18 22:26 Pulse Ox 96 12/29/18 22:26 - Medical History PMH: Anemia, Anxiety, Arthritis, Asthma, Bipolar Disorder, Bronchitis, CAD, COPD, Depression, Diabetes, Gastritis, GERD, Hypercholesterolemia, Hypothyroidism, Osteoporosis, Peripheral Edema, Pneumonia, Pulmonary Embolism Denies: Chronic Kidney Disease, Seizures, Sexually Transmitted Disease Surgical History: CABG, Cholecystectomy, Coronary Stent - [facility] Procedures ALCOHOL DETOXIFICATION (03/15/15) DETOXIFICATION SERVICES FOR SUBSTANCE ABUSE TREATMENT (10/16/18) EXCISION OF STOMACH, ENDO, DIAGN (05/29/18) FLUOROSCOPY OF MULT COR ART USING L OSM CONTRAST (03/10/18) GROUP HORIZONTAL BORING MILL OPERATOR FOR SUBSTANCE ABUSE TREATMENT, PSYCHOEDUCATION (10/16/18) GROUP PSYCHOTHERAPY (02/03/18) INDIV PSYCHOTHERAPY FOR SUBSTANCE ABUSE TREATMENT, SUPPORT (10/16/18) INDIV PSYCHOTHERAPY FOR SUBSTANCE ABUSE, COGNITIV BEHAVIORAL (02/03/18) INDIVID PSYCHOTHERAP NEC (04/14/13) INDIVIDUAL PSYCHOTHERAPY, COGNITIVE-BEHAVIORAL (02/03/18) INTRODUCTION OF ANTI-INFLAM INTO RESP TRACT, VIA OPENING (01/25/17) INTRODUCTION OF SERUM/TOX/VACCINE INTO MUSCLE, PERC APPROACH (09/02/17) MEASURE OF CARDIAC SAMPL & PRESSURE, L HEART, PERC APPROACH (03/10/18) MEDICATION MANAGEMENT (10/16/18) OTHER GROUP THERAPY (04/14/13) PHYSICAL THERAPY NEC (06/12/14) Family History: States: Unknown Family Hx - Social History Hx Tobacco Use: Yes Hx Alcohol Use: Yes Hx Substance Use: No - Immunization History Hx Tetanus Toxoid Vaccination: No Hx Influenza Vaccination: No Hx Pneumococcal Vaccination: No Review Of Systems Except As Marked, All Systems Reviewed And Found Negative. Constitutional: Negative for: Fever, Chills, Weakness Cardiovascular: Negative for: Chest Pain Respiratory: Negative for: Cough, Shortness of Breath Gastrointestinal: Negative for: Nausea, Vomiting, Abdominal Pain, Diarrhea Neurological: Negative for: Weakness, Numbness Physical Exam - Physical Exam Appears: Non-toxic, No Acute Distress Skin: Normal Color, Warm, Dry Head: Atraumatic, Normacephalic Eye(s): bilateral: Normal Inspection, PERRL, EOMI Oral Mucosa: Moist, Other (alcohol on breath) Neck: Normal, Supple Chest: Symmetrical, No Tenderness Cardiovascular: Rhythm Regular, No Murmur Respiratory: Normal Breath Sounds, No Rales, No Rhonchi, No Wheezing Gastrointestinal/Abdominal: Soft, No Tenderness, No Guarding, No Rebound Extremity: Normal ROM Neurological/Psych: Oriented x3, Normal Speech, Normal Cognition ED Course And Treatment - Laboratory Results Result Diagrams: 12/29/18 22:59 12/29/18 22:59 O2 Sat by Pulse Oximetry: 96 (RA) Pulse Ox Interpretation: Normal Medical Decision Making Medical Decision Making: Plan: VBG Chemistry Hematology Glucose POC NaCl IV Fluids Disposition - Disposition Referrals: [facility] Toan Dozier, [Non-Staff] - Disposition: HOME/ ROUTINE Disposition Time: 00:00 Condition: IMPROVED Additional Instructions: [employer], thank you for letting us take care of you today. The emergency medical care you received today was directed at your acute symptoms. If you were prescribed any medication, please fill it and take as directed. It may take several days for your symptoms to resolve. Return to the Emergency Department if your symptoms worsen, do not improve, or if you have any other problems. Please contact your doctor or call one of the physicians/clinics you have been referred to that are listed on the Patient Visit Information form that is included in your discharge packet. Bring any paperwork you were given at discharge with you along with any medications you are taking to your follow up visit. Our treatment cannot replace ongoing medical care by a primary care provider outside of the emergency department. Thank you for allowing the [facility] team to be part of your care today. Follow up with your primary care doctor in 2-3 days for re-evaluation and further management. Instructions: Alcohol Use - When Is Drinking a Problem?, Hyperglycemia, Adult (DC) Forms: [employer] (Nigerian) - Clinical Impression Clinical Impression: Alcohol abuse, Hyperglycemia - Scribe Statement The provider has reviewed the documentation as recorded by the Scribe (Darinel Chang) Provider Attestation: All medical record entries made by the Scribe were at my direction and pers onally dictated by me. I have reviewed the chart and agree that the record accurately reflects my personal performance of the history, physical exam, medical decision making, and the department course for this patient. I have also personally directed, reviewed, and agree with the discharge instructions and disposition.
[2018-12-29 23:03] LABS: BASO # 0.1 K/uL (0.0-0.2); BASO % 1.4 % (0.0-2.0); EOS # 0.1 K/uL (0.0-0.7); EOS % 2.1 % (0.0-4.0); HEMOGLOBIN 11.5 g/dL (11.0-16.0); LYMPH # 2.2 K/uL (1.0-4.3); LYMPH % 38.9 % (20.0-40.0); MEAN CELL VOLUME 103.6 fL (81.0-99.0); MEAN CORPUSCULAR HEMOGLOBIN 33.6 pg (27.0-31.0); MEAN CORPUSCULAR HGB CONC 32.4 g/dL (33.0-37.0); MONO # 0.5 K/uL (0.0-0.8); MONO % 9.3 % (0.0-10.0); NEUT # 2.7 K/uL (1.8-7.0); NEUT % 48.3 % (50.0-75.0); NRBC % 0.2 % (0.0-2.0); RBC 3.43 Mil/uL (3.80-5.20); RED CELL DISTRIBUTION WIDTH 15.9 % (11.5-14.5); WHITE BLOOD COUNT 5.6 K/uL (4.8-10.8)
[2018-12-29 23:06] LABS: VENOUS BLOOD GAS BASE EXCESS -7.7 mmol/L (0.0-2.0); VENOUS BLOOD GAS PCO2 34 mmHg (40-60); VENOUS BLOOD GAS PO2 56 mm/Hg (30-55); VENOUS BLOOD PH 7.32 (7.32-7.43)
[2018-12-29 23:24] LABS: ALB/GLOB RATIO 0.9 (1.0-2.1); ALBUMIN 3.4 g/dL (3.5-5.0); ALT/SGPT 48 U/L (9-52); AST/SGOT 162 U/L (14-36); BLOOD UREA NITROGEN 9 mg/dL (7-17); CALCIUM 9.1 mg/dl (8.6-10.4); GFR NON-AFRICAN AMERICAN > 60; LIPASE 313 U/L (23-300)
[2018-12-30 06:07] VITALS: BP 128/76; PULSE 90; RESP 20; TEMP 98
[2018-12-30 06:22] VITALS: O2SAT 96
== END 2018-12-30 06:05 | disposition home or self-care (01) ==
LOC: C.ER 22:19
DX: F10.10 Alcohol abuse, uncomplicated (principal); Y90.8 Blood alcohol level of 240 mg/100 ml or more; E11.65 Type 2 diabetes mellitus with hyperglycemia
CPT/HCPCS: 80053; 82009; 82803; 82948; 83690; 85025; 99283; G0480; J7030

== ENCOUNTER 2019-01-03 10:12 | Emergency (ER) | payer MEDICARE, OTHER ==
[2019-01-03 10:12] VITALS: BMI 25.0
[2019-01-03 10:24] VITALS: TEMP 98
[2019-01-03] MEDS ORDERED: Sodium Chloride 0.9% 1,000 ML IV ONE ×2 (10:43→11:38)
[2019-01-03] MEDS ORDERED: Sodium Chloride 0.9% 1,000 ML ONE (10:56)
--- NOTE | 2019-01-03 10:57 | C.PDOC ---
History Of Present Illness 68 year old female presents to ED with complaint of chronic abdominal pain for an unknown period of time. Patient describes the pain as diffuse and sharp. She also admits to drinking daily and her last drink was early this morning. Patient denies vomiting, blood in stool, blood in urine. Time Seen by Provider: 01/03/19 10:26 Chief Complaint (Nursing): Abdominal Pain History Per: Patient History/Exam Limitations: no limitations Onset/Duration Of Symptoms: Unknown Current Symptoms Are (Timing): Still Present Location Of Pain/Discomfort: Diffuse Quality Of Discomfort: Sharp Associated Symptoms: denies: Vomiting, Urinary Symptoms Exacerbating Factors: None Alleviating Factors: None Past Medical History Reviewed: Historical Data, Nursing Documentation, Vital Signs Vital Signs: Last Vital Signs Temp 98 F 01/03/19 10:16 Pulse 90 01/03/19 10:16 Resp 18 01/03/19 10:16 BP 124/78 01/03/19 10:16 Pulse Ox 94 L 01/03/19 10:16 - Medical History PMH: Anemia, Anxiety, Arthritis, Asthma, Bipolar Disorder, Bronchitis, CAD, COPD, Depression, Diabetes, Gastritis, GERD, HTN, Hypercholesterolemia, Hypo thyroidism (Pt unsure), Osteoporosis, Peripheral Edema, Pneumonia, Pulmonary Embolism Denies: Chronic Kidney Disease, Seizures, Sexually Transmitted Disease Surgical History: CABG, Cholecystectomy, Coronary Stent - [facility] Procedures ALCOHOL DETOXIFICATION (03/15/15) DETOXIFICATION SERVICES FOR SUBSTANCE ABUSE TREATMENT (10/16/18) EXCISION OF STOMACH, ENDO, DIAGN (05/29/18) FLUOROSCOPY OF MULT COR ART USING L OSM CONTRAST (03/10/18) GROUP REPRODUCTION ORDER PROCESSOR FOR SUBSTANCE ABUSE TREATMENT, PSYCHOEDUCATION (10/16/18) GROUP PSYCHOTHERAPY (02/03/18) INDIV PSYCHOTHERAPY FOR SUBSTANCE ABUSE TREATMENT, SUPPORT (10/16/18) INDIV PSYCHOTHERAPY FOR SUBSTANCE ABUSE, COGNITIV BEHAVIORAL (02/03/18) INDIVID PSYCHOTHERAP NEC (04/14/13) INDIVIDUAL PSYCHOTHERAPY, COGNITIVE-BEHAVIORAL (02/03/18) INTRODUCTION OF ANTI-INFLAM INTO RESP TRACT, VIA OPENING (01/25/17) INTRODUCTION OF SERUM/TOX/VACCINE INTO MUSCLE, PERC APPROACH (09/02/17) MEASURE OF CARDIAC SAMPL & PRESSURE, L HEART, PERC APPROACH (03/10/18) MEDICATION MANAGEMENT (10/16/18) OTHER GROUP THERAPY (04/14/13) PHYSICAL THERAPY NEC (06/12/14) Family History: States: Unknown Family Hx - Social History Hx Tobacco Use: Yes Hx Alcohol Use: Yes Hx Substance Use: No - Immunization History Hx Tetanus Toxoid Vaccination: No Hx Influenza Vaccination: No Hx Pneumococcal Vaccination: No Review Of Systems Constitutional: Negative for: Fever, Chills Gastrointestinal: Positive for: Abdominal Pain. Negative for: Nausea, Vomiting, Hematochezia Genitourinary: Negative for: Hematuria Neurological: Negative for: Weakness Physical Exam - Physical Exam Appears: Non-toxic, Other (alcohol on breath) Skin: Normal Color, Warm, Dry Head: Atraumatic, Normacephalic Neck: Normal ROM, Supple Chest: Symmetrical, No Deformity Cardiovascular: Rhythm Regular, No Murmur Respiratory: No Accessory Muscle Use, No Rales, No Rhonchi, No Wheezing Gastrointestinal/Abdominal: Soft, Tenderness (mild, diffuse tenderness), Organomegaly (hepatomegaly) Extremity: Capillary Refill (<2 seconds) Neurological/Psych: Oriented x3, Normal Speech, Normal Cognition ED Course And Treatment - Laboratory Results Result Diagrams: 01/03/19 10:49 01/03/19 11:33 O2 Sat by Pulse Oximetry: 94 (in RA) - CT Scan/US Abdomen/Pelvis CT Other Rad Studies (CT/US): Interpreted By Me, Read By Radiologist CT/US Interpretation: IMPRESSION: 1. No acute abdominal or pelvic abnormality. 2. Over distended urinary bladder. Mild fullness in the renal collecting system and mild dilatation of the proximal and mid ureters without distal obstruction likely related to over distended bladder. 3. Sigmoid diverticulosis without CT evidence for acute diverticulitis. Constipation. No evidence for bowel obstruction. 4. Fatty liver. Medical Decision Making Medical Decision Making: Impression: 68 year old female presents to ED with complaint of chronic abdominal pain for an unknown period of time. Plan: Abdomen/Pelvis CT ordered for patient Labs ordered with CMP, CBC, lipase, urine culture, and UA Patient given Pepcid, Zofran, and IV fluids Re-eval: Patient states that she feels better. Patient walking around and wants to be discharged. Disposition - Disposition Referrals: Varun Dozier, [Non-Staff] - Disposition: ELOPEMENT - ER ONLY Disposition Time: 13:25 Condition: IMPROVED Additional Instructions: [employer], thank you for letting us take care of you today. The emergency medical care you received today was directed at your acute symptoms. If you were prescribed any medication, please fill it and take as directed. It may take several days for your symptoms to resolve. Return to the Emergency Department if your symptoms worsen, do not improve, or if you have any other problems. Please contact your doctor or call one of the physicians/clinics you have been referred to that are listed on the Patient Visit Information form that is included in your discharge packet. Bring any paperwork you were given at discharge with you along with any medications you are taking to your follow up visit. Our treatment cannot replace ongoing medical care by a primary care provider outside of the emergency department. Thank you for allowing the [facility] team to be part of your care today. Do not drink too much alcohol at one time. Followup with your primary care doctor in 3-4 days for re-evaluation and further management. Instructions: Alcohol Use - When Is Drinking a Problem?, Hyperglycemia, Adult (DC) Forms: [employer] ([place]ian) - Clinical Impression Clinical Impression: Alcohol abuse, Hyperglycemia - Scribe Statement The provider has reviewed the documentation as recorded by the Scribe (Jennifer Cortez) All medical record entries made by the Scribe were at my direction and personally dictated by me. I have reviewed the chart and agree that the record accurately reflects my personal performance of the history, physical exam, medical decision making, and the department course for this patient. I have also personally directed, reviewed, and agree with the discharge instructions and disposition.
[2019-01-03 10:59] LABS: BASO % 0.6 % (0.0-2.0); EOS # 0.1 K/uL (0.0-0.7); EOS % 1.5 % (0.0-4.0); HEMOGLOBIN 10.9 g/dL (11.0-16.0); LYMPH # 1.9 K/uL (1.0-4.3); LYMPH % 41.5 % (20.0-40.0); MEAN CELL VOLUME 103.9 fL (81.0-99.0); MEAN CORPUSCULAR HEMOGLOBIN 34.1 pg (27.0-31.0); MEAN CORPUSCULAR HGB CONC 32.8 g/dL (33.0-37.0); MONO # 0.4 K/uL (0.0-0.8); MONO % 8.9 % (0.0-10.0); NEUT # 2.1 K/uL (1.8-7.0); NEUT % 47.5 % (50.0-75.0); NRBC % 0.1 % (0.0-2.0); RBC 3.21 Mil/uL (3.80-5.20); RED CELL DISTRIBUTION WIDTH 16.2 % (11.5-14.5); WHITE BLOOD COUNT 4.5 K/uL (4.8-10.8)
[2019-01-03 11:22] LABS: URINE BACTERIA RARE (<OCC); URINE BILIRUBIN NEGATIVE (NEGATIVE); URINE BLOOD NEGATIVE (NEGATIVE); URINE CLARITY Clear (Clear); URINE COLOR Yellow (YELLOW); URINE GLUCOSE (UA) 3+ mg/dL (Normal); URINE LEUKOCYTE ESTERASE NEG Leu/uL (Negative); URINE PROTEIN NEGATIVE (NEGATIVE)
[2019-01-03 11:40] VITALS: BP 101/58; PULSE 77; RESP 16
[2019-01-03 11:58] LABS: ALBUMIN 3.6 g/dL (3.5-5.0); ALT/SGPT 66 U/L (9-52); AST/SGOT 217 U/L (14-36); BLOOD UREA NITROGEN 5 mg/dL (7-17); CALCIUM 8.3 mg/dl (8.6-10.4); GFR NON-AFRICAN AMERICAN > 60
[2019-01-03 12:18] LABS: LIPASE 176 U/L (23-300)
[2019-01-03] MEDS ORDERED: Iodixanol 320 MG/ML 100 ML BOTTLE IV ONE (12:20)
--- NOTE | 2019-01-03 13:25 | CT ---
Date of service: 01/03/2019 PROCEDURE: CT Abdomen and Pelvis with contrast HISTORY: diffuse abdominal pain COMPARISON: 10/30/2018. TECHNIQUE: CT scan of the abdomen and pelvis was performed after administration of intravenous contrast. Oral contrast was not administered. Coronal and sagittal reformatted images were obtained. Contrast dose: 100 mL Visipaque 320 Radiation dose: Total exam DLP = 600.26 mGy-cm. This CT exam was performed using one or more of the following dose reduction techniques: Automated exposure control, adjustment of the mA and/or kV according to patient size, and/or use of iterative reconstruction technique. FINDINGS: LOWER THORAX: The visualized lungs are clear. LIVER: Mild hepatomegaly and fatty liver. Normal homogeneous enhancement. No gross lesion or ductal dilatation. GALLBLADDER AND BILE DUCTS: Surgically absent. PANCREAS: Normal in size with homogeneous enhancement. No gross lesion or ductal dilatation. SPLEEN: Normal in size and appearance. ADRENALS: No discrete nodule. KIDNEYS AND URETERS: Normal in size with homogeneous enhancement. There is an extrarenal pelvis on the right. There is mild fullness in the collecting systems and dilatation of the proximal and mid ureters. The distal ureters are not dilated. No evidence of distal obstruction. No hydronephrosis. No solid mass. VASCULATURE: No aortic aneurysm. There are no aortic atherosclerotic calcifications or mural plaque present. An infrarenal IVC filter remains in place. BOWEL: Evaluation of the bowel is limited in the absence of oral contrast. The small bowel loops are normal in caliber. There is moderate amount of stool in the colon. There is mild sigmoid diverticulosis without CT evidence for acute diverticulitis. APPENDIX: Normal appendix. PERITONEUM: No free fluid. No free air. LYMPH NODES: No enlarged lymph nodes. BLADDER: The urinary bladder is over distended however grossly normal in appearance. REPRODUCTIVE: Age appropriate atrophy of the uterus. The uterus is anteverted. No adnexal masses. BONES: There is mild dextroscoliosis in the lumbar spine. No acute fracture. Within normal limits for the patient's age. Mild degenerative disc disease at L5-S1. OTHER FINDINGS: None. IMPRESSION: 1. No acute abdominal or pelvic abnormality. 2. Over distended urinary bladder. Mild fullness in the renal collecting system and mild dilatation of the proximal and mid ureters without distal obstruction likely related to over distended bladder. 3. Sigmoid diverticulosis without CT evidence for acute diverticulitis. Constipation. No evidence for bowel obstruction. 4. Fatty liver.
[2019-01-03 16:19] VITALS: O2SAT 94
== END 2019-01-03 14:11 | disposition left against medical advice (07) ==
LOC: C.ER 10:12
DX: F10.10 Alcohol abuse, uncomplicated (principal); E11.65 Type 2 diabetes mellitus with hyperglycemia; E03.9 Hypothyroidism, unspecified; E78.00 Pure hypercholesterolemia, unspecified; I10 Essential (primary) hypertension; I25.10 Atherosclerotic heart disease of native coronary artery without angina pectoris; J44.9 Chronic obstructive pulmonary disease, unspecified; Z72.0 Tobacco use
CPT/HCPCS: 74177; 80053; 81001; 83690; 85025; 87086; 96374; 96375; 99285; G0480; J2405; J7030; Q9967

== ENCOUNTER 2019-01-24 20:58 | Emergency (ER) | payer MEDICARE, OTHER | END 2019-01-25 05:41 | disposition home or self-care (01) | LOC: C.ER 20:58 | CPT/HCPCS: 82948; 96360; 99284; J7030 ==

== ENCOUNTER 2019-01-26 22:51 | Emergency (ER) | payer MEDICARE, OTHER ==
[2019-01-26 22:53] VITALS: BMI 25.0
[2019-01-26 23:35] LABS: SQUAMOUS EPITHIAL 1 /hpf (0-5); URINE BILIRUBIN 1+ (NEGATIVE); URINE BLOOD 1+ (NEGATIVE); URINE CLARITY Clear (Clear); URINE COLOR Amber (YELLOW); URINE GLUCOSE (UA) NORMAL (Normal); URINE LEUKOCYTE ESTERASE NEG Leu/uL (Negative); URINE PROTEIN NEGATIVE (NEGATIVE)
--- NOTE | 2019-01-26 23:54 | C.PDOC ---
History Of Present Illness 68-year-old female presents to the ED requesting a place to sleep for the night. Patient is familiar to this ED and usually has visits related to alcohol intoxication and asking to sleep in the ED for the night. Patient is also complaining of a burning sensation and pain to her groin region, of which she cannot recall the onset. Patient denies fever, chills. Time Seen by Provider: 01/26/19 23:15 Chief Complaint (Nursing): Female Genitourinary History Per: Patient History/Exam Limitations: no limitations Onset/Duration Of Symptoms: Unknown Current Symptoms Are (Timing): Still Present Quality Of Discomfort: Burning, "Pain" Additional History Per: Patient Past Medical History Reviewed: Historical Data, Nursing Documentation, Vital Signs Vital Signs: Last Vital Signs Temp 98.3 F 01/26/19 22:56 Pulse 95 H 01/26/19 22:56 Resp 16 01/26/19 22:56 BP 107/73 01/26/19 22:56 Pulse Ox 96 01/26/19 22:56 Primary Care Provider: FAMILY PROVIDER,NO - Medical History PMH: Anemia, Anxiety, Arthritis, Asthma, Bipolar Disorder, Bronchitis, CAD, COPD, Depression, Diabetes, Gastritis, GERD, HTN, Hypercholesterolemia, Hypothyroidism (Pt unsure), Osteoporosis, Peripheral Edema, Pneumonia, Pulmonary Embolism Denies: Chronic Kidney Disease, Seizures, Sexually Transmitted Disease Surgical History: CABG, Cholecystectomy, Coronary Stent - [facility] Procedures ALCOHOL DETOXIFICATION (03/15/15) DETOXIFICATION SERVICES FOR SUBSTANCE ABUSE TREATMENT (10/16/18) EXCISION OF STOMACH, ENDO, DIAGN (05/29/18) FLUOROSCOPY OF MULT COR ART USING L OSM CONTRAST (03/10/18) GROUP EQUIPMENT WASHER FOR SUBSTANCE ABUSE TREATMENT, PSYCHOEDUCATION (10/16/18) GROUP PSYCHOTHERAPY (02/03/18) INDIV PSYCHOTHERAPY FOR SUBSTANCE ABUSE TREATMENT, SUPPORT (10/16/18) INDIV PSYCHOTHERAPY FOR SUBSTANCE ABUSE, COGNITIV BEHAVIORAL (02/03/18) INDIVID PSYCHOTHERAP NEC (04/14/13) INDIVIDUAL PSYCHOTHERAPY, COGNITIVE-BEHAVIORAL (02/03/18) INTRODUCTION OF ANTI-INFLAM INTO RESP TRACT, VIA OPENING (01/25/17) INTRODUCTION OF SERUM/TOX/VACCINE INTO MUSCLE, PERC APPROACH (09/02/17) MEASURE OF CARDIAC SAMPL & PRESSURE, L HEART, PERC APPROACH (03/10/18) MEDICATION MANAGEMENT (10/16/18) OTHER GROUP THERAPY (04/14/13) PHYSICAL THERAPY NEC (06/12/14) Family History: States: Unknown Family Hx - Social History Hx Tobacco Use: Yes Hx Alcohol Use: Yes Hx Substance Use: No - Immunization History Hx Tetanus Toxoid Vaccination: No Hx Influenza Vaccination: No Hx Pneumococcal Vaccination: No Review Of Systems Constitutional: Negative for: Fever, Chills, Weakness Genitourinary: Positive for: Other (burning sensation and pain to groin area ) Skin: Negative for: Rash Neurological: Negative for: Weakness, Numbness, Dizziness Physical Exam - Physical Exam Appears: Non-toxic, No Acute Distress Skin: Normal Color, Warm, Other (denuded skin to inner thighs bilaterally, early ulcerative-type changes ) Head: Atraumatic, Normacephalic Gastrointestinal/Abdominal: Soft, No Tenderness, No Distention Pelvic: Other (fungating mass noted in vaginal vault. unable to thoroughly assess. Typing Bookkeeper: JESU Muro) Extremity: Normal ROM Extremity: Bilateral: Atraumatic Pulses: Left Radial: Normal, Right Radial: Normal Neurological/Psych: Oriented x3, Normal Cranial Nerves (grossly intact ) ED Course And Treatment - Laboratory Results Lab Results: Urine Color Migdalia (YELLOW) 01/26/19 23:30 Urine Clarity Clear (Clear) 01/26/19 23:30 Urine pH 6.0 (5.0-8.0) 01/26/19 23:30 Ur Specific Reynolds 1.004 (1.003-1.030) 01/26/19 23:30 Urine Protein Negative mg/dL (NEGATIVE) 01/26/19 23:30 Urine Glucose (UA) Normal mg/dL (Normal) 01/26/19 23:30 Urine Ketones Negative mg/dL (NEGATIVE) 01/26/19 23:30 Urine Blood 1+ (NEGATIVE) H 01/26/19 23:30 Urine Nitrate Negative (NEGATIVE) 01/26/19 23:30 Urine Bilirubin 1+ (NEGATIVE) H 01/26/19 23:30 Urine Urobilinogen 2.0 mg/dL (0.2-1.0) H 01/26/19 23:30 Ur Leukocyte Esterase Neg Demetri/uL (Negative) 01/26/19 23:30 Urine WBC (Auto) 2 /hpf (0-5) 01/26/19 23:30 Urine RBC (Auto) < 1 /hpf (0-3) 01/26/19 23:30 Ur Squamous Epith Cells 1 /hpf (0-5) 01/26/19 23:30 O2 Sat by Pulse Oximetry: 96 (on RA ) Pulse Ox Interpretation: Normal Medical Decision Making Medical Decision Making: Progress: Urinalysis ordered and reviewed. Diflucan PO given. Patinet will be given a cream for her ulcerative lesions. Patient possibly has a vaginal fungal infection due to her sustained high blood sugar levels, or a possible fungating mass. I implored to the patient the importance of following up with DOG SITTER, as the mass in her vaginal vault may be cancerous. Disposition - Disposition Referrals: [facility] [Outside] Disposition: HOME/ ROUTINE Disposition Time: 23:54 Condition: STABLE Additional Instructions: Es muy importante que usted siga con respecto al crecimiento anormal dentro de onofre vagina. Thatcher podra ser canceroso. Prescriptions: Honey [Medihoney] 1 film TP BID #1 tube Instructions: Vaginitis Forms: Gen Discharge Inst Latvian, [facility] (Latvian) Print Language: KINYARWANDA - Clinical Impression Clinical Impression: Vaginitis and vulvovaginitis, Vaginal mass, Skin ulcer of thigh, limited to breakdown of skin - PA / CHEF CONCIERGE / Resident Statement MD/DO has reviewed & agrees with the documentation as recorded. - Scribe Statement The provider has reviewed the documentation as recorded by the Scribe (Myrna Can) All medical record entries made by the Scribe were at my direction and personally dictated by me. I have reviewed the chart and agree that the record accurately reflects my personal performance of the history, physical exam, medical decision making, and the department course for this patient. I have also personally directed, reviewed, and agree with the discharge instructions and disposition.
[2019-01-27] MEDS ORDERED: Petrolatum Oint Foilpak (5 gm) ONE (00:33)
[2019-01-27 00:50] VITALS: BP 121/77; PULSE 80; RESP 20; TEMP 97.8
[2019-01-27 03:36] VITALS: O2SAT 96
== END 2019-01-27 00:50 | disposition home or self-care (01) ==
LOC: C.ER 22:51
DX: N76.0 Acute vaginitis (principal); L97.109 Non-pressure chronic ulcer of unspecified thigh with unspecified severity

== ENCOUNTER 2019-01-28 22:25 | Inpatient (IN) | payer MEDICARE, OTHER ==
[2019-01-28 22:26] VITALS: BMI 25.0
[2019-01-28 23:26] LABS: BASO % 0.4 % (0.0-2.0); HEMOGLOBIN 11.3 g/dL (11.0-16.0); LYMPH # 1.1 K/uL (1.0-4.3); LYMPH % 11.5 % (20.0-40.0); MEAN CELL VOLUME 103.9 fL (81.0-99.0); MEAN CORPUSCULAR HEMOGLOBIN 34.8 pg (27.0-31.0); MEAN CORPUSCULAR HGB CONC 33.5 g/dL (33.0-37.0); MONO # 0.6 K/uL (0.0-0.8); MONO % 6.1 % (0.0-10.0); NEUT # 7.7 K/uL (1.8-7.0); NRBC % 0.1 % (0.0-2.0); RBC 3.24 Mil/uL (3.80-5.20); RED CELL DISTRIBUTION WIDTH 13.5 % (11.5-14.5); WHITE BLOOD COUNT 9.3 K/uL (4.8-10.8)
[2019-01-28 23:38] LABS: VENOUS BLOOD GAS BASE EXCESS -6.8 mmol/L (0.0-2.0); VENOUS BLOOD GAS PCO2 62 mmHg (40-60); VENOUS BLOOD GAS PO2 23 mm/Hg (30-55); VENOUS BLOOD PH 7.17 (7.32-7.43)
[2019-01-28] MEDS ORDERED: Sodium Chloride 0.9% 2,000 ML IV ONE (23:39)
--- NOTE | 2019-01-28 23:45 | C.PDOC ---
History Of Present Illness Patient with PMHx of DM, chronic alcoholism presents to the ED c/o abdominal pain and uncontrolled blood sugar. Patient has been seen in the ED multiple times in the past for similar. Patient states she drinks six beers daily. Tamanna fay denies SI/HI, hallucinations. Time Seen by Provider: 01/28/19 23:39 Chief Complaint (Nursing): High Blood Sugar History Per: Patient History/Exam Limitations: intoxication Onset/Duration Of Symptoms: Hrs Current Symptoms Are (Timing): Still Present Causative (Exacerbating) Factor(s): Other (alcohol intake) Recent travel outside of the [place]: No Additional History Per: Patient Past Medical History Reviewed: Historical Data, Nursing Documentation, Vital Signs Vital Signs: Last Vital Signs Temp 99 F 01/28/19 22:30 Pulse 107 H 01/28/19 23:32 Resp 20 01/28/19 23:32 BP 117/79 01/28/19 23:32 Pulse Ox 95 01/28/19 23:32 Primary Care Provider: Non [facility] Provider, - Medical History PMH: Anemia, Anxiety, Arthritis, Asthma, Bipolar Disorder, Bronchitis, CAD, COPD, Depression, Diabetes, Gastritis, GERD, HTN, Hypercholesterolemia, Hypothyroidism (Pt unsure), Osteoporosis, Peripheral Edema, Pneumonia, Pulmonary Embolism Denies: Chronic Kidney Disease, Seizures, Sexually Transmitted Disease Surgical History: CABG, Cholecystectomy, Coronary Stent - [facility] Procedures ALCOHOL DETOXIFICATION (03/15/15) DETOXIFICATION SERVICES FOR SUBSTANCE ABUSE TREATMENT (10/16/18) EXCISION OF STOMACH, ENDO, DIAGN (05/29/18) FLUOROSCOPY OF MULT COR ART USING L OSM CONTRAST (03/10/18) GROUP CO OP FOR SUBSTANCE ABUSE TREATMENT, PSYCHOEDUCATION (10/16/18) GROUP PSYCHOTHERAPY (02/03/18) INDIV PSYCHOTHERAPY FOR SUBSTANCE ABUSE TREATMENT, SUPPORT (10/16/18) INDIV PSYCHOTHERAPY FOR SUBSTANCE ABUSE, COGNITIV BEHAVIORAL (02/03/18) INDIVID PSYCHOTHERAP NEC (04/14/13) INDIVIDUAL PSYCHOTHERAPY, COGNITIVE-BEHAVIORAL (02/03/18) INTRODUCTION OF ANTI-INFLAM INTO RESP TRACT, VIA OPENING (01/25/17) INTRODUCTION OF SERUM/TOX/VACCINE INTO MUSCLE, PERC APPROACH (09/02/17) MEASURE OF CARDIAC SAMPL & PRESSURE, L HEART, PERC APPROACH (03/10/18) MEDICATION MANAGEMENT (10/16/18) OTHER GROUP THERAPY (04/14/13) PHYSICAL THERAPY NEC (06/12/14) Family History: States: Unknown Family Hx - Social History Hx Tobacco Use: Yes Hx Alcohol Use: Yes Hx Substance Use: No - Immunization History Hx Tetanus Toxoid Vaccination: No Hx Influenza Vaccination: No Hx Pneumococcal Vaccination: No Review Of Systems Constitutional: Negative for: Fever, Chills Cardiovascular: Negative for: Chest Pain Respiratory: Negative for: Shortness of Breath Gastrointestinal: Positive for: Abdominal Pain. Negative for: Nausea, Vomiting Skin: Negative for: Rash Neurological: Negative for: Weakness, Numbness Psych: Negative for: Depression, Suicidal ideation Physical Exam - Physical Exam Appears: Non-toxic, In Acute Distress Skin: Warm, Dry Head: Normacephalic Eye(s): bilateral: Normal Inspection Oral Mucosa: Moist Neck: Supple Chest: Symmetrical, Other (old healing bruise in sternum) Cardiovascular: Rhythm Regular Respiratory: No Rales, No Rhonchi, No Wheezing Gastrointestinal/Abdominal: Soft, No Tenderness, No Distention Extremity: Bilateral: Atraumatic, Normal Color And Temperature, Normal ROM Neurological/Psych: Oriented x3 Gait: Unable To Assess ED Course And Treatment - Laboratory Results Result Diagrams: 01/28/19 23:23 01/28/19 23:23 Lab Results: pO2 23 mm/Hg (30-55) L 01/28/19 23:25 VBG pH 7.17 (7.32-7.43) L* 01/28/19 23:25 VBG pCO2 62 mmHg (40-60) H 01/28/19 23:25 VBG HCO3 17.7 mmol/L 01/28/19 23:25 VBG Total CO2 24.5 mmol/L (22-28) 01/28/19 23:25 VBG O2 Sat (Calc) 39.7 % (40-65) L 01/28/19 23:25 VBG Base Excess -6.8 mmol/L (0.0-2.0) L 01/28/19 23:25 VBG Potassium 5.9 mmol/L (3.6-5.2) H 01/28/19 23:25 Sodium 129.0 mmol/l (132-148) L 01/28/19 23:25 Chloride 93.0 mmol/L (98-107) L 01/28/19 23:25 Glucose 304 mg/dl (65-105) H 01/28/19 23:25 Lactate 6.8 mmol/L (0.7-2.1) H* 01/28/19 23:25 Crit Value Called To Liz hunt/rn 01/28/19 23:25 Crit Value Called By Prasanth hill/ 01/28/19 23:25 Crit Value Read Back Y 01/28/19 23:25 Blood Gas Notified Time 233901/28/19 23:25 ECG: Interpreted By Me, Viewed By Me ECG Rhythm: Sinus Rhythm (106), L BBB, Nonspecific Changes O2 Sat by Pulse Oximetry: 95 (ON RA) Pulse Ox Interpretation: Normal - CT Scan/US CT head Other Rad Studies (CT/US): Read By Radiologist, Radiology Report Reviewed CT/US Interpretation: CT SCAN OF THE BRAIN WITHOUT IV CONTRAST. CLINICAL INDICATION: Detox. TECHNIQUE: Axial and reformatted sagittal and coronal images of the brain obtained without IV contrast administration. FINDINGS: Normal size of the ventricles and extra-axial spaces for the patient's age. Normal white matter tracts of the supratentorial brain. Normal basal ganglia and thalami. Normal brainstem. Normal cerebellum. There is no demonstrated extra-axial, intraparenchymal, or intraventricular hemorrhage. There are no findings of an acute ischemic infarction. Normal calvarium. There is no demonstrated fracture. Normal soft tissue structures. Mild chronic mucosal inflammatory changes of the ethmoid air cells. Normal remaining visualized paranasal sinuses. IMPRESSION: Normal unenhanced CT scan of the brain. Mild chronic mucosal inflammatory changes of the ethmoid air cells. . E lectronically signed on January 29, 2019 2:32:54 AM EDT by: Janneth Davis M.D., Certified by ABR, MSK, Neuroradiology Progress Note: While in the ED patient had a witnessed generalized seizure. Patient was given 1 mg of Ativan. Patient post ictal currently. Critical Care Time - Critical Care Note Total Time (in mins): 30 Documented critical care: time excludes all time spent performing seperately billable procedures. Disposition Discussed With : Anthony Can Comment: accepted the pt onhis service and took over the care at 7:08 AM Doctor Will See Patient In The: Hospital Counseled Patient/Family Regarding: Studies Performed, Diagnosis - Disposition Disposition: HOSPITALIZED Disposition Time: 23:44 Condition: FAIR Forms: [facility] (Portuguese) - POA Present On Arrival: Poor Glycemic Control - Clinical Impression Clinical Impression: Diabetic complication, Alcohol abuse, Abdominal pain, Alcohol abuse with alcohol-induced disorder, Left bundle branch block (LBBB) - Scribe Statement The provider has reviewed the documentation as recorded by the Scribe Moe Wolff All medical record entries made by the Scribe were at my direction and personally dictated by me. I have reviewed the chart and agree that the record accurately reflects my personal performance of the history, physical exam, medical decision making, and the department course for this patient. I have also personally directed, reviewed, and agree with the discharge instructions and disposition. Decision To Admit - Pt Status Changed To: Hospital Disposition Of: Inpatient - Admit Certification Admit to Inpatient:: After my assessment, the patient will require hospitalization for at least two midnights. This is because of the severity of symptoms shown, intensity of services needed, and/or the medical risk in this patient being treated as an outpatient. - InPatient: Physician Admission Certification: I certify that this patient requires 2 or more midnights of care for the following reason:: After my assessment, the patient will require hospitalization for at least two midnights. This is because of the severity of symptoms shown, intensity of services needed, and/or the medical risk in this patient being treated as an outpatient. - . Bed Request Type: Telemetry Admitting Physician: Anthony Can Patient Diagnosis: Diabetic complication, Alcohol abuse, Abdominal pain, Alcohol abuse with alcohol-induced disorder, Left bundle branch block (LBBB)
[2019-01-28 23:59] LABS: ALB/GLOB RATIO 0.7 (1.0-2.1); ALBUMIN 4.1 g/dL (3.5-5.0); ALT/SGPT 133 U/L (9-52); AST/SGOT 586 U/L (14-36); BLOOD UREA NITROGEN 8 mg/dL (7-17); GFR NON-AFRICAN AMERICAN > 60
[2019-01-29 01:39] LABS: GRANULAR CAST 5 /lpf (0-1); SQUAMOUS EPITHIAL < 1 /hpf (0-5); URINE BACTERIA RARE (<OCC); URINE BILIRUBIN 1+ (NEGATIVE); URINE BLOOD 1+ (NEGATIVE); URINE CLARITY Hazy (Clear); URINE COLOR Amber (YELLOW); URINE GLUCOSE (UA) 3+ mg/dL (Normal); URINE LEUKOCYTE ESTERASE NEG Leu/uL (Negative); URINE PROTEIN NEGATIVE (NEGATIVE)
[2019-01-29 01:42] LABS: BARBITURATES, UR NEGATIVE (NEGATIVE); BENZODIAZEPINES, UR NEGATIVE (NEGATIVE); OPIATES, UR NEGATIVE (NEGATIVE); PHENCYCLIDINE, UR NEGATIVE (NEGATIVE)
[2019-01-29] MEDS ORDERED: Sodium Chloride 0.9% 1,000 ML IV ONE (02:27)
[2019-01-29] MEDS ORDERED: Sodium Chloride 0.9% 1,000 ML ONE (02:44)
[2019-01-29 02:49] LABS: VENOUS BLOOD GAS BASE EXCESS -2.5 mmol/L (0.0-2.0); VENOUS BLOOD GAS PCO2 35 mmHg (40-60); VENOUS BLOOD GAS PO2 56 mm/Hg (30-55)
--- NOTE | 2019-01-29 07:08 | CT ---
Date of service: 01/29/2019 PROCEDURE: CT HEAD WITHOUT CONTRAST. HISTORY: seizure COMPARISON: 05/30/2018 TECHNIQUE: Axial computed tomography images were obtained through the head/brain without intravenous contrast. Radiation dose: Total exam DLP = 724.45 mGy-cm. This CT exam was performed using one or more of the following dose reduction techniques: Automated exposure control, adjustment of the mA and/or kV according to patient size, and/or use of iterative reconstruction technique. FINDINGS: HEMORRHAGE: No intracranial hemorrhage. BRAIN: No mass effect or edema. Scattered focal lucencies in the subcortical and periventricular white matter suggestive for chronic microvascular ischemic change. Diffuse generalized parenchymal atrophy. Punctate hypodensity in the left basal ganglia may represent a prominent perivascular space versus small lacunar infarct. VENTRICLES: Unremarkable. No hydrocephalus. CALVARIUM: Unremarkable. PARANASAL SINUSES: Mild chronic mucosal inflammatory changes of the ethmoid air cells. MASTOID AIR CELLS: Unremarkable as visualized. No inflammatory changes. OTHER FINDINGS: Fullness in the intrasellar region. Correlation with pituitary MRI may be helpful if clinically indicated. IMPRESSION: No acute intracranial abnormality. Chronic microvascular ischemic changes. Diffuse generalized parenchymal atrophy. Additional findings as above. If symptoms persists, consider correlation with MRI. A preliminary report was generated 2:32 a.m. on 01/29/[address] Janneth Davis from [facility].
[2019-01-29] MEDS ORDERED: Multivitamin (MVI) 10 ML, Thiamine 100 MG, Folic Acid 1 MG in Sodium Chloride 0.9% 1,00... IV ONE ×2 (07:10→13:00)
[2019-01-29] MEDS ORDERED: Dextrose 50% SYRINGE Inj (50 ml) IV PRN (12:00)
[2019-01-29] MEDS ORDERED: Glucagon Recombinant 1 mg Inj IM PRN (12:00)
[2019-01-29] MEDS: Pantoprazole 40 mg EC Tab PO SCH (12:30)
[2019-01-29] MEDS: Enoxaparin 40 mg Syringe SC SCH (12:30)
--- NOTE | 2019-01-29 13:24 | RAD ---
Date of service: 01/29/2019 PROCEDURE: CHEST RADIOGRAPH, 1 VIEW HISTORY: Detox/Psy COMPARISON: 12/18/2018 FINDINGS: LUNGS: Examination limited due to severely oblique positioning. No infiltrate. PLEURA: No pneumothorax or pleural fluid seen. CARDIOVASCULAR: No aortic atherosclerotic calcification present. Normal. OSSEOUS STRUCTURES: No significant abnormalities. VISUALIZED UPPER ABDOMEN: Normal. OTHER FINDINGS: None. IMPRESSION: No active disease.
[2019-01-29 15:56] VITALS: RESP 20
[2019-01-29] MEDS: (Novolin R) Insulin Human Regular 100 units/ml vial SC SCH ×2 (18:40→21:50)
--- NOTE | 2019-01-29 19:05 | CP.PCM.HP ---
Past Patient History - Infectious Disease Hx of Infectious Diseases: None - Past Medical History & Family History Past Medical History?: Yes - Past Social History Smoking Status: Current Some Days Smoker - CARDIAC Hx Hypercholesterolemia: Yes Hx Hypertension: Yes Hx Peripheral Edema: Yes - PULMONARY Hx Asthma: Yes Hx Bronchitis: Yes Hx Chronic Obstructive Pulmonary Disease (COPD): Yes Hx Pneumonia: Yes Hx Pulmonary Embolism: Yes - NEUROLOGICAL Hx Dizziness: Yes Hx Seizures: Yes - HEENT Hx HEENT Problems: No - RENAL Hx Chronic Kidney Disease: No - ENDOCRINE/METABOLIC Hx Diabetes Mellitus Type 2: Yes Hx Hypothyroidism: Yes (Pt unsure) - HEMATOLOGICAL/ONCOLOGICAL Hx Anemia: Yes - INTEGUMENTARY Hx Dermatological Problems: No - MUSCULOSKELETAL/RHEUMATOLOGICAL Hx Arthritis: Yes Hx Falls: Yes Hx Osteoporosis: Yes Hx Unsteady Gait: Yes - GASTROINTESTINAL Hx Gastritis: Yes - GENITOURINARY/GYNECOLOGICAL Hx Sexually Transmitted Disorders: No - PSYCHIATRIC Hx Anxiety: Yes Hx Bipolar Disorder: Yes Hx Depression: Yes Hx Substance Use: No - SURGICAL HISTORY Hx Cholecystectomy: Yes Hx Coronary Artery Bypass Graft: Yes Hx Coronary Stent: Yes - ANESTHESIA Hx Anesthesia: Yes Hx Anesthesia Reactions: No Hx Malignant Hyperthermia: No Has any member of the family had a problem w/ anesthesia?: No Meds Allergies/Adverse Reactions: Allergies Allergy/AdvReac Type Severity Reaction Status Date / Time ceftriaxone Allergy Intermediate RASH Verified 01/28/19 22:42 moxifloxacin HCl Allergy Intermediate RASH Verified 01/28/19 22:42 [From Avelox] Physical Exam - Constitutional Appears: Well - Head Exam Head Exam: ATRAUMATIC, NORMAL INSPECTION, NORMOCEPHALIC - Eye Exam Eye Exam: EOMI, Normal appearance, PERRL Pupil Exam: NORMAL ACCOMODATION, PERRL - ENT Exam ENT Exam: Mucous Membranes Moist, Normal Exam - Neck Exam Neck exam: Positive for: Normal Inspection - Respiratory Exam Respiratory Exam: Decreased Breath Sounds - Cardiovascular Exam Cardiovascular Exam: REGULAR RHYTHM, +S1, +S2 - GI/Abdominal Exam GI & Abdominal Exam: Diminished Bowel Sounds, Soft - Rectal Exam Rectal Exam: Deferred - Neurological Exam Neurological exam: Oriented x3 Results - Vital Signs Recent Vital Signs: Last Vital Signs Temp 99.1 F 01/29/19 15:00 Pulse 105 H 01/29/19 15:00 Resp 20 01/29/19 15:00 BP 112/70 01/29/19 15:00 Pulse Ox 98 01/29/19 15:00 - Labs Result Diagrams: 01/28/19 23:23 01/28/19 23:23 Labs: Laboratory Results - last 24 hr 01/28/19 01/28/19 01/28/19 22:38 23:23 23:23 WBC 9.3 D RBC 3.24 L Hgb 11.3 Hct 33.6 L MCV 103.9 H MCH 34.8 H MCHC 33.5 RDW 13.5 Plt Count 78 L D MPV 11.0 Neut % (Auto) 82.0 H Lymph % (Auto) 11.5 L [place] % (Auto) 6.1 Eos % (Auto) 0.0 Baso % (Auto) 0.4 Neut # (Auto) 7.7 H Lymph # (Auto) 1.1 [place] # (Auto) 0.6 Eos # (Auto) 0.0 Baso # (Auto) 0.0 Differential Comment pO2 VBG pH VBG pCO2 VBG HCO3 VBG Total CO2 VBG O2 Sat (Calc) VBG Base Excess VBG Potassium Glucose Lactate Crit Value Called To Crit Value Called By Crit Value Read Back Blood Gas Notified Time Sodium 129 L Potassium 5.6 H Chloride 93 L Carbon Dioxide 17 L Anion Gap 24 H BUN 8 Creatinine 0.4 L Est GFR ( Amer) > 60 Est GFR (Non-Af Amer) > 60 POC Glucose (mg/dL) 341 H Random Glucose 294 H D Calcium 10.0 Phosphorus 5.9 H Magnesium 1.3 L Total Bilirubin 8.6 H AST 586 H D ALT 133 H D Alkaline Phosphatase 326 H D Troponin I < 0.0120 Total Protein 9.5 H Albumin 4.1 Globulin 5.5 H Albumin/Globulin Ratio 0.7 L Venous Blood Potassium Urine Color Urine Clarity Urine pH Ur Specific Chicken Urine Protein Urine Glucose (UA) Urine Ketones Urine Blood Urine Nitrate Urine Bilirubin Urine Urobilinogen Ur Leukocyte Esterase Urine WBC (Auto) Urine RBC (Auto) Ur Squamous Epith Cells Urine Bacteria Granular Casts (Auto) Urine Opiates Screen Urine Methadone Screen Ur Barbiturates Screen Ur Phencyclidine Scrn Ur Amphetamines Screen U Benzodiazepines Scrn U Oth Cocaine Metabols U Cannabinoids Screen Alcohol, Quantitative < 10 B-Hydroxybutyrate 01/28/19 01/28/19 01/29/19 23:25 23:48 01:23 WBC RBC Hgb Hct MCV MCH MCHC RDW Plt Count MPV Neut % (Auto) Lymph % (Auto) [place] % (Auto) Eos % (Auto) Baso % (Auto) Neut # (Auto) Lymph # (Auto) [place] # (Auto) Eos # (Auto) Baso # (Auto) Differential Comment pO2 23 L VBG pH 7.17 L* VBG pCO2 62 H VBG HCO3 17.7 VBG Total CO2 24.5 VBG O2 Sat (Calc) 39.7 L VBG Base Excess -6.8 L VBG Potassium 5.9 H Glucose 304 H Lactate 6.8 H* Crit Value Called To Liz hunt/rn Crit Value Called By Prasanth hill/rt Crit Value Read Back Y Blood Gas Notified Time 2340 Sodium 129.0 L Potassium Chloride 93.0 L Carbon Dioxide Anion Gap BUN Creatinine Est GFR ( Amer) Est GFR (Non-Af Amer) POC Glucose (mg/dL) Random Glucose Calcium Phosphorus Magnesium Total Bilirubin AST ALT Alkaline Phosphatase Troponin I Total Protein Albumin Globulin Albumin/Globulin Ratio Venous Blood Potassium 5.9 H Urine Color [place] Urine Clarity Hazy Urine pH 5.0 Ur Specific Chicken 1.017 Urine Protein Negative Urine Glucose (UA) 3+ H Urine Ketones Negative Urine Blood 1+ H Urine Nitrate Negative Urine Bilirubin 1+ H Urine Urobilinogen 4.0 H Ur Leukocyte Esterase Neg Urine WBC (Auto) 2 Urine RBC (Auto) 6 H Ur Squamous Epith Cells < 1 Urine Bacteria Rare Granular Casts (Auto) 5 Urine Opiates Screen Urine Methadone Screen Ur Barbiturates Screen Ur Phencyclidine Scrn Ur Amphetamines Screen U Benzodiazepines Scrn U Oth Cocaine Metabols U Cannabinoids Screen Alcohol, Quantitative B-Hydroxybutyrate 0.16 01/29/19 01/29/19 01/29/19 01:23 02:45 02:48 WBC RBC Hgb Hct MCV MCH MCHC RDW Plt Count MPV Neut % (Auto) Lymph % (Auto) [place] % (Auto) Eos % (Auto) Baso % (Auto) Neut # (Auto) Lymph # (Auto) [place] # (Auto) Eos # (Auto) Baso # (Auto) Differential Comment pO2 56 H VBG pH 7.40 VBG pCO2 35 L VBG HCO3 22.7 VBG Total CO2 22.8 VBG O2 Sat (Calc) 88.4 H VBG Base Excess -2.5 L VBG Potassium 4.0 Glucose 182 H Lactate 3.1 H Crit Value Called To Crit Value Called By Crit Value Read Back Blood Gas Notified Time Sodium 129.0 L Potassium Chloride 99.0 Carbon Dioxide Anion Gap BUN Creatinine Est GFR ( Amer) Est GFR (Non-Af Amer) POC Glucose (mg/dL) 211 H Random Glucose Calcium Phosphorus Magnesium Total Bilirubin AST ALT Alkaline Phosphatase Troponin I Total Protein Albumin Globulin Albumin/Globulin Ratio Venous Blood Potassium 4.0 Urine Color Urine Clarity Urine pH Ur Specific Chicken Urine Protein Urine Glucose (UA) Urine Ketones Urine Blood Urine Nitrate Urine Bilirubin Urine Urobilinogen Ur Leukocyte Esterase Urine WBC (Auto) Urine RBC (Auto) Ur Squamous Epith Cells Urine Bacteria Granular Casts (Auto) Urine Opiates Screen Negative Urine Methadone Screen Negative Ur Barbiturates Screen Negative Ur Phencyclidine Scrn Negative Ur Amphetamines Screen Negative U Benzodiazepines Scrn Negative U Oth Cocaine Metabols Negative U Cannabinoids Screen Negative Alcohol, Quantitative B-Hydroxybutyrate 01/29/19 01/29/19 01/29/19 04:30 07:04 10:59 WBC RBC Hgb Hct MCV MCH MCHC RDW Plt Count MPV Neut % (Auto) Lymph % (Auto) [place] % (Auto) Eos % (Auto) Baso % (Auto) Neut # (Auto) Lymph # (Auto) [place] # (Auto) Eos # (Auto) Baso # (Auto) Differential Comment pO2 VBG pH VBG pCO2 VBG HCO3 VBG Total CO2 VBG O2 Sat (Calc) VBG Base Excess VBG Potassium Glucose Lactate Crit Value Called To Crit Value Called By Crit Value Read Back Blood Gas Notified Time Sodium Potassium Chloride Carbon Dioxide Anion Gap BUN Creatinine Est GFR ( Amer) Est GFR (Non-Af Amer) POC Glucose (mg/dL) 216 H 193 H 216 H Random Glucose Calcium Phosphorus Magnesium Total Bilirubin AST ALT Alkaline Phosphatase Troponin I Total Protein Albumin Globulin Albumin/Globulin Ratio Venous Blood Potassium Urine Color Urine Clarity Urine pH Ur Specific Chicken Urine Protein Urine Glucose (UA) Urine Ketones Urine Blood Urine Nitrate Urine Bilirubin Urine Urobilinogen Ur Leukocyte Esterase Urine WBC (Auto) Urine RBC (Auto) Ur Squamous Epith Cells Urine Bacteria Granular Casts (Auto) Urine Opiates Screen Urine Methadone Screen Ur Barbiturates Screen Ur Phencyclidine Scrn Ur Amphetamines Screen U Benzodiazepines Scrn U Oth Cocaine Metabols U Cannabinoids Screen Alcohol, Quantitative B-Hydroxybutyrate 01/29/19 16:30 WBC RBC Hgb Hct MCV MCH MCHC RDW Plt Count MPV Neut % (Auto) Lymph % (Auto) [place] % (Auto) Eos % (Auto) Baso % (Auto) Neut # (Auto) Lymph # (Auto) [place] # (Auto) Eos # (Auto) Baso # (Auto) Differential Comment pO2 VBG pH VBG pCO2 VBG HCO3 VBG Total CO2 VBG O2 Sat (Calc) VBG Base Excess VBG Potassium Glucose Lactate Crit Value Called To Crit Value Called By Crit Value Read Back Blood Gas Notified Time Sodium Potassium Chloride Carbon Dioxide Anion Gap BUN Creatinine Est GFR ( Amer) Est GFR (Non-Af Amer) POC Glucose (mg/dL) 125 H Random Glucose Calcium Phosphorus Magnesium Total Bilirubin AST ALT Alkaline Phosphatase Troponin I Total Protein Albumin Globulin Albumin/Globulin Ratio Venous Blood Potassium Urine Color Urine Clarity Urine pH Ur Specific Chicken Urine Protein Urine Glucose (UA) Urine Ketones Urine Blood Urine Nitrate Urine Bilirubin Urine Urobilinogen Ur Leukocyte Esterase Urine WBC (Auto) Urine RBC (Auto) Ur Squamous Epith Cells Urine Bacteria Granular Casts (Auto) Urine Opiates Screen Urine Methadone Screen Ur Barbiturates Screen Ur Phencyclidine Scrn Ur Amphetamines Screen U Benzodiazepines Scrn U Oth Cocaine Metabols U Cannabinoids Screen Alcohol, Quantitative B-Hydroxybutyrate
[2019-01-30] MEDS ORDERED: Glucagon Recombinant 1 mg Inj IM PRN (09:25)
[2019-01-30] MEDS ORDERED: Dextrose 50% SYRINGE Inj (50 ml) IV PRN (09:25)
[2019-01-30] MEDS: (Novolin R) Insulin Human Regular 100 units/ml vial SC SCH ×4 (10:40→21:57)
[2019-01-30] MEDS: Enoxaparin 40 mg Syringe SC SCH (10:40)
[2019-01-30] MEDS: Pantoprazole 40 mg EC Tab PO SCH (10:41)
[2019-01-30 12:09] LABS: ALB/GLOB RATIO 0.7 (1.0-2.1); ALBUMIN 2.5 g/dL (3.5-5.0); ALT/SGPT 103 U/L (9-52); AST/SGOT 274 U/L (14-36); BILIRUBIN,DIRECT 5.5 mg/dL (0.0-0.4); BLOOD UREA NITROGEN 8 mg/dL (7-17); CALCIUM 8.2 mg/dl (8.6-10.4); GFR NON-AFRICAN AMERICAN > 60
--- NOTE | 2019-01-30 20:28 | CP.PCM.PN ---
Subjective - Date & Time of Evaluation Date of Evaluation: 01/30/19 Time of Evaluation: 08:20 - Subjective Subjective: patient examined at bedside today patient denies nausea, vomiting, diarrhea, dizziness, fever, shortness of breath Objective - Vital Signs/Intake and Output Vital Signs (last 24 hours): Temp Pulse Resp BP Pulse Ox 98.2 F 102 H 20 110/64 96 01/30/19 16:57 01/30/19 16:57 01/30/19 16:57 01/30/19 16:57 01/30/19 16:57 - Medications Medications: Current Medications Chlordiazepoxide (Librium) 25 mg PO Q8 PRN PRN Reason: Tremors Last Admin: 01/29/19 23:00 Dose: 25 mg Dextrose (Dextrose 50% Inj) 0 ml IV STAT PRN; Protocol PRN Reason: Hypoglycemia Protocol Dextrose (Glutose 15) 0 gm PO ONCE PRN; Protocol PRN Reason: Hypoglycemia Protocol Enoxaparin Sodium (Lovenox) 40 mg SC DAILY [facility] Last Admin: 01/30/19 10:40 Dose: 40 mg Glucagon (Glucagen Diagnostic Kit) 0 mg IM STAT PRN; Protocol PRN Reason: Hypoglycemia Protocol Dextrose (Dextrose 5% In Water 1000 Ml) 1,000 mls @ 0 mls/hr IV .Q0M PRN; Protocol PRN Reason: Hypoglycemia Protocol Insulin Glargine (Lantus) 15 unit SC [facility] Insulin Human Regular (Novolin R) 0 unit SC ACHS [facility]; Protocol Last Admin: 01/30/19 16:41 Dose: 1 unit Pantoprazole Sodium (Protonix Ec Tab) 40 mg PO DAILY [facility] Last Admin: 01/30/19 10:41 Dose: 40 mg - Labs Labs: 01/28/19 23:23 01/30/19 11:28 - Constitutional Appears: Well - Head Exam Head Exam: ATRAUMATIC, NORMAL INSPECTION, NORMOCEPHALIC - Eye Exam Eye Exam: EOMI, Normal appearance, PERRL Pupil Exam: NORMAL ACCOMODATION, PERRL - ENT Exam ENT Exam: Mucous Membranes Moist, Normal Exam - Neck Exam Neck Exam: Full ROM, Normal Inspection. absent: Lymphadenopathy - Respiratory Exam Respiratory Exam: Decreased Breath Sounds - Cardiovascular Exam Cardiovascular Exam: REGULAR RHYTHM, +S1, +S2 - GI/Abdominal Exam GI & Abdominal Exam: Soft, Diminished Bowel Sounds - Rectal Exam Rectal Exam: Deferred - Neurological Exam Neurological Exam: Oriented x3 Assessment and Plan - Assessment and Plan (Free Text) Plan: dextrose 5% dextrose 50% glucagen diagnostic kit glutose 15 lantus librium lovenox novolin R protonix ec tab labs reviewed vitals reviewed medications reviewed plan consulted with patient and family moderate complexity of care
[2019-01-30] MEDS: (Lantus) Insulin Glargine, Recombinant SC SCH (21:23)
[2019-01-30] MEDS ORDERED: DiphenhydrAMINE 50 mg/ml Inj IVP PRN (21:36)
--- NOTE | 2019-01-31 01:15 | CARD ---
APPROVED REPORT Date of service: 01/29/2019 EKG Measurement Heart [id number] <Conclusion> Sinus tachycardia Possible Left atrial enlargement Left bundle branch block Abnormal ECG
[2019-01-31] MEDS: Pantoprazole 40 mg EC Tab PO SCH (09:45)
[2019-01-31] MEDS: Potassium Chloride 10 mEq ER Tab PO SCH (09:46)
[2019-01-31] MEDS: Enoxaparin 40 mg Syringe SC SCH (09:46)
[2019-01-31] MEDS: (Novolin R) Insulin Human Regular 100 units/ml vial SC SCH ×4 (09:46→21:47)
--- NOTE | 2019-01-31 11:50 | PCM.PSYCH ---
Initial Psychiatric Evaluation - Initial Psychiatric Evaluation Type of Admission: Voluntary Chief Complaint (in patient's own words): "I'm fine" History of Present Illness and Precipitating Events: The pt is seen, chart reviewed, and case discussed. Consult was requested for pts alcohol withdrawal symptoms. Her UDS from 01/29/19 had quantitative alcohol level <10mg/dL. Nurses notes periods of forgetfulness and pt has been hallucinating the presence of her daughter. Pt was hospitalized for poorly controlled DM and alcohol use disorder. Nurse notes that pt has forgetful periods and is being treated for alcohol withdrawal. Pt is a 68 year old female single, has 6 children, and lives with her daughter, Brina Hughes. Pt is feeling depressed and nervous, but denies suicidal thoughts or auditory hallucinations. She has never seen a psychiatrist before or had psych related hospitalization. [employer]'s student was able reach pts other daughter Hafsa Gray. As per daughter pt has drank throughout most of her life. She also has extensive psych hx including bipolar disorder, anxiety, depression, panic attacks, and nerve shakes and so does half of the family. Daughter reports pt took Xanax and Trazadone to help her sleep for most of her life. Her mother was doing really well when she was seeing a psychiatrist in [place], but due to insurance issues her mother stopped going. Daughter does not live with her mother nor does she s peak with her younger sister, Brina, who lives with her mother. Daughter has heard through mutual contact that her mother has been pooping all over herself and her apartment and has been going around begging people for money for alcohol. Daughter says mother has only two children. Past psych hx: She had psych admissions "long ago" Fam psych hx: 2 family members have psychiatric illness, did not specify PMHx: T2DM, asthma, HLD, HTN, COPD, asthma, arthritis, osteoporosis PSHx: cholecystectomy, coronary artery bypass, coronary stent placement Current Medications: Active Medications Generic Name Dose Route Start Last Admin Trade Name Freq PRN Reason Stop Dose Admin Dextrose 0 ml 01/29/19 12:00 Dextrose 50% Inj IV STAT PRN Hypoglycemia Protocol Protocol Dextrose 0 gm 01/29/19 12:00 Glutose 15 PO ONCE PRN Hypoglycemia Protocol Protocol Diphenhydramine HCl 25 mg 01/30/19 21:36 01/30/19 21:47 Benadryl IVP 25 mg Q8 PRN Administration Itching / Pruritus Enoxaparin Sodium 40 mg 01/29/19 12:00 01/31/19 09:46 Lovenox SC 40 mg DAILY [facility] Administration Glucagon 0 mg 01/29/19 12:00 Glucagen Diagnostic Kit IM STAT PRN Hypoglycemia Protocol Protocol Dextrose 1,000 mls @ 0 mls/hr 01/29/19 12:00 Dextrose 5% In Water 1000 Ml IV .Q0M PRN Hypoglycemia Protocol Protocol Per Protocol Insulin Glargine 15 unit 01/30/19 22:00 01/30/19 21:23 Lantus SC 15 unit HS JESSE Administration Insulin Human Regular 0 unit 01/31/19 11:41 Novolin R SC ACHS [facility] Protocol Pantoprazole Sodium 40 mg 01/29/19 12:00 01/31/19 09:45 Protonix Ec Tab PO 40 mg DAILY [facility] Administration Potassium Chloride 10 meq 01/31/19 08:00 01/31/19 09:46 Klor-Con 10 PO 10 meq DAILY@0800 JESSE Administration Past Psychiatric History - Past Psychiatric History Previous Treatment History: Inpatient Pertinent Medical Hx (Current Medical&Sleep Prob, Allergies): Allergies Allergy/AdvReac Type Severity Reaction Status Date / Time ceftriaxone Allergy Intermediate RASH Verified 01/28/19 22:42 moxifloxacin HCl Allergy Intermediate RASH Verified 01/28/19 22:42 [From Avelox] Unobtainable 01/28/19 Review of Systems - Psychiatric Psychiatric: Abnormal Sleep Pattern, Anhedonia, Anxiety, Change in Appetite, Depression, Difficulty Concentrating, Memory Loss. absent: Homicidal Ideation, Suicidal Ideation Mental Status Examination - Personal Presentation Personal Presentation: Looks older than stated age - Affect Affect: Constricted - Reliability in Providing Information Reliability in Providing Information: Fair - Speech Speech: Disorganized - Mood Mood: Depressed, Anxious - Formal Thought Process Formal Thought Process: No Impairment - Cognitive Functions Orientation: Person Sensorium: Alert Attention/Concentration: Easily distracted Abstract Thinking: [place] Estimate of Intelligence: Below average Judgement: Imparied, as evidence by: Poor judgement Memory: Recent impaired, as evidence by: Inability to recall events of the day, Recent imparied as evidence by:Inability to complete 3/3 object recall, Remote impaired as evidenced by: Inability to recall sig life events - Risk Risk: Diminished functioning - Strength & Assets Inventory Strength & Assets Inventory: Family support, Cooperative - Limitations Limitations: Other DSM 5 DX - DSM 5 DSM 5 Diagnosis: Dementia Major depression recurrent Alcohol use d/o - Recommended/Plan of Treatment Treatment Recommendations and Plan of Treatment: Pt doesn't have wdw sxs, no need for librium. Pls continue to monitor Remeron for depression Support, psychoed, orientation 32 min
[2019-01-31] MEDS ORDERED: Magnesium Sulfate 1 gm in D5W 1 GM/100 ML BAG IVPB ONE ×2 (17:00→17:30)
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
[2019-01-31] MEDS: (Lantus) Insulin Glargine, Recombinant SC SCH (21:06)
[2019-01-31] MEDS ORDERED: Potassium Phosphate 30 MMOLE in Sodium Chloride 0.9% 250 ML IV ONE (21:16)
[2019-01-31] MEDS ORDERED: Potassium Chloride 20 mEq ER Tab PO STA (21:17)
[2019-01-31] MEDS ORDERED: (Lantus) Insulin Glargine, Recombinant SC SCH (22:52)
[2019-02-01 07:48] VITALS: BP 101/68; PULSE 89; TEMP 98.1; O2SAT 94
[2019-02-01 08:22] LABS: BASO # 0.1 K/uL (0.0-0.2); BASO % 1.1 % (0.0-2.0); EOS # 0.1 K/uL (0.0-0.7); EOS % 1.1 % (0.0-4.0); LYMPH # 1.6 K/uL (1.0-4.3); MEAN CELL VOLUME 105.6 fL (81.0-99.0); MEAN CORPUSCULAR HEMOGLOBIN 35.1 pg (27.0-31.0); MEAN CORPUSCULAR HGB CONC 33.3 g/dL (33.0-37.0); MEAN PLATELET VOLUME 10.2 fL (7.2-11.7); MONO # 0.4 K/uL (0.0-0.8); MONO % 8.6 % (0.0-10.0); NEUT # 2.8 K/uL (1.8-7.0); NEUT % 57.2 % (50.0-75.0); NRBC % 0.3 % (0.0-2.0); RBC 2.55 Mil/uL (3.80-5.20); RED CELL DISTRIBUTION WIDTH 13.8 % (11.5-14.5); WHITE BLOOD COUNT 4.9 K/uL (4.8-10.8)
[2019-02-01] MEDS: (Novolin R) Insulin Human Regular 100 units/ml vial SC SCH ×2 (08:25→12:24)
[2019-02-01 08:34] LABS: BLOOD UREA NITROGEN 9 mg/dL (7-17); CALCIUM 8.5 mg/dl (8.6-10.4); GFR NON-AFRICAN AMERICAN > 60
[2019-02-01] MEDS: Potassium Chloride 10 mEq ER Tab PO SCH (08:47)
[2019-02-01] MEDS: Enoxaparin 40 mg Syringe SC SCH (10:39)
[2019-02-01] MEDS: Pantoprazole 40 mg EC Tab PO SCH (10:39)
[2019-02-01] MEDS ORDERED: Pneumococcal 23-Valent Vaccine IM ONE (14:40)
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
== END 2019-02-01 16:47 | disposition home or self-care (01) | DRG 638 ==
LOC: C.ER 22:25 → C.9E 01-29 07:07 → C.5S 01-29 09:02
PROVIDERS: ADMIT Internal Medicine Nephrology; ATTEND Internal Medicine Nephrology
DX: E10.65 Type 1 diabetes mellitus with hyperglycemia (principal); F10.239 Alcohol dependence with withdrawal, unspecified; F33.9 Major depressive disorder, recurrent, unspecified; I47.2 Ventricular tachycardia; R56.9 Unspecified convulsions; E13.9 Other specified diabetes mellitus without complications; D64.9 Anemia, unspecified; B02.9 Zoster without complications; E78.5 Hyperlipidemia, unspecified; E87.6 Hypokalemia; F03.90 Unspecified dementia, unspecified severity, without behavioral disturbance, psychotic disturbance, mood disturbance, and anxiety; F31.9 Bipolar disorder, unspecified; F41.9 Anxiety disorder, unspecified; I10 Essential (primary) hypertension; I25.10 Atherosclerotic heart disease of native coronary artery without angina pectoris; I44.7 Left bundle-branch block, unspecified; Z72.0 Tobacco use; Z86.711 Personal history of pulmonary embolism; R04.0 Epistaxis

== ENCOUNTER 2019-02-16 21:12 | Emergency (ER) | payer MEDICARE, OTHER ==
[2019-02-16 21:12] VITALS: BMI 25.0
--- NOTE | 2019-02-16 22:52 | C.PDOC ---
History Of Present Illness 68 year old female brought by ambulance to ED for alcohol intoxication. Patient has had multiple prior visits to ED for the same symptoms in the past and is known to the ED. Patient denies homicidal ideation and suicidal ideation. Time Seen by Provider: 02/16/19 22:13 Chief Complaint (Nursing): Substance Abuse History Per: Patient History/Exam Limitations: intoxication Onset/Duration Of Symptoms: Hrs (1.5) Current Symptoms Are (Timing): Still Present Suicide/Self Injury Attempted (Context): None Modifying Factor(s): Alcohol Associated Symptoms: denies: Suicidal Thoughts, Suicidal Plan Additional History Per: EMS Past Medical History Reviewed: Historical Data, Nursing Documentation, Vital Signs Vital Signs: Last Vital Signs Temp 97.6 F 02/16/19 21:58 Pulse 73 02/16/19 21:58 Resp 18 02/16/19 21:58 BP 114/72 02/16/19 21:58 Pulse Ox 95 02/16/19 21:58 Primary Care Provider: FAMILY PROVIDER,NO - Medical History PMH: Anemia, Anxiety, Arthritis, Asthma, Bipolar Disorder, Bronchitis, CAD, COPD, Depression, Diabetes, Gastritis, GERD, HTN, Hypercholesterolemia, Hypothyroidism (Pt unsure), Osteoporosis, Peripheral Edema, Pneumonia, Pulmonary Embolism, Seizures Denies: Chronic Kidney Disease, Sexually Transmitted Disease Surgical History: CABG, Cholecystectomy, Coronary Stent - [facility] ALCOHOL DETOXIFICATION (03/15/15) DETOXIFICATION SERVICES FOR SUBSTANCE ABUSE TREATMENT (10/16/18) EXCISION OF STOMACH, ENDO, DIAGN (05/29/18) FLUOROSCOPY OF MULT COR ART USING L OSM CONTRAST (03/10/18) GROUP BROOD STATION MANAGER FOR SUBSTANCE ABUSE TREATMENT, PSYCHOEDUCATION (10/16/18) GROUP PSYCHOTHERAPY (02/03/18) INDIV PSYCHOTHERAPY FOR SUBSTANCE ABUSE TREATMENT, SUPPORT (10/16/18) INDIV PSYCHOTHERAPY FOR SUBSTANCE ABUSE, COGNITIV BEHAVIORAL (02/03/18) INDIVID PSYCHOTHERAP NEC (04/14/13) INDIVIDUAL PSYCHOTHERAPY, COGNITIVE-BEHAVIORAL (02/03/18) INTRODUCTION OF ANTI-INFLAM INTO RESP TRACT, VIA OPENING (01/25/17) INTRODUCTION OF SERUM/TOX/VACCINE INTO MUSCLE, PERC APPROACH (09/02/17) MEASURE OF CARDIAC SAMPL & PRESSURE, L HEART, PERC APPROACH (03/10/18) MEDICATION MANAGEMENT (10/16/18) OTHER GROUP THERAPY (04/14/13) PHYSICAL THERAPY NEC (06/12/14) Family History: States: Unknown Family Hx - Social History Hx Tobacco Use: Yes Hx Alcohol Use: Yes Hx Substance Use: No - Immunization History Hx Tetanus Toxoid Vaccination: No Hx Influenza Vaccination: No Hx Pneumococcal Vaccination: No Review Of Systems Except As Marked, All Systems Reviewed And Found Negative. Constitutional: Positive for: Other (intoxication) Physical Exam - Physical Exam Appears: Non-toxic, No Acute Distress, Other (alcohol on breath) Skin: Normal Color, Warm, Dry Head: Atraumatic, Normacephalic Eye(s): bilateral: Normal Inspection Oral Mucosa: Moist Neck: Normal ROM, Supple Chest: Symmetrical, No Deformity Cardiovascular: Rhythm Regular, No Murmur Respiratory: No Accessory Muscle Use, No Rales, No Rhonchi, No Wheezing, Other (NARD) Gastrointestinal/Abdominal: Soft, No Tenderness, No Distention, No Guarding, No Rebound Extremity: Capillary Refill (<2 seconds) Extremity: Bilateral: Atraumatic, Normal Color And Temperature, Normal ROM Pulses: Left Radial: Normal, Right Radial: Normal Neurological/Psych: Other (calm, cooperative, no psychosis, ambulatory without difficulty) Gait: Steady ED Course And Treatment O2 Sat by Pulse Oximetry: 95 (in RA) Pulse Ox Interpretation: Normal Progress Note: Glucose POC ordered for patient. Accucheck - 112. Disposition - Disposition Disposition Time: 23:42 Condition: STABLE Forms: [facility] ([place]) - Clinical Impression Clinical Impression: Alcohol intoxication - Scribe Statement The provider has reviewed the documentation as recorded by the Scribe (Jennifer Cortez) All medical record entries made by the Scribe were at my direction and personally dictated by me. I have reviewed the chart and agree that the record accurately reflects my personal performance of the history, physical exam, medical decision making, and the department course for this patient. I have also personally directed, reviewed, and agree with the discharge instructions and disposition. Physician Patient Turnover Patient Signed Over To: Gloria Posadas Handoff Comments: FU SOBRIETY, DISPO
[2019-02-17 05:24] VITALS: BP 118/74; PULSE 80; RESP 14; TEMP 97.2; O2SAT 97
== END 2019-02-17 05:24 | disposition home or self-care (01) ==
LOC: C.ER 21:12
DX: F10.129 Alcohol abuse with intoxication, unspecified (principal); Y90.9 Presence of alcohol in blood, level not specified